=== PATIENT | male | born 1950 | race Caucasian/White ===

== ENCOUNTER 2020-07-04 21:52 | Inpatient (IN) | payer MEDICARE, SELFPAY ==
[2020-07-04 21:55] VITALS: BP 234/112; PULSE 107; RESP 17; TEMP 37.2; O2SAT 100; BMI 38.7
--- NOTE | 2020-07-04 21:58 | XR_ITS ---
WS: [id number] PORTABLE CHEST HISTORY: dyspnea COMPARISON: None available. Prior median sternotomy. Lung volumes are decreased. Moderate pulmonary congestion. No pleural effusion or pneumothorax. Cardiac size: Mildly enlarged cardiac silhouette. Mediastinum/Aorta: Normal mediastinum. Degenerative changes at the AC joints. XR/XR chest 1V portable [id number] IMPRESSION: 1. Technically very limited evaluation of the lungs. 2. Moderate CHF.
[2020-07-04 22:14] VITALS: PULSE 86; RESP 24; O2SAT 95
[2020-07-04 22:14] LABS: Basophils # 0.1 10^3/uL (0.0-0.1); Basophils % 0.6 %; Eosinophils # 0.5 10^3/uL (0.0-0.8); Hematocrit 48.1 % (42.0-52.0); Hemoglobin 15.4 g/dL (11.7-16.6); Lymphocytes # 1.7 10^3/uL (0.8-4.8); Lymphocytes % 14.4 %; Mean Corpuscular Hemoglobin 29.4 pg (28.0-34.0); Mean Platelet Volume 10.6 fL (7.4-10.4); Monocytes # 0.9 10^3/uL (0.2-0.9); Monocytes % 7.9 %; Neutrophils # 8.48 10^3/uL (1.8-7.7); Neutrophils % 72.8 %; Nucleated Red Blood Cells % 0 %; Platelet Count 250 10^3/cmm (130-400); Red Blood Count 5.23 10^6/uL (4.1-5.3); Red Cell Distribution Width 13.5 % (12.1-15.1); White Blood Count 11.6 10^3/uL (4.0-10.0)
[2020-07-04 22:22] VITALS: BP 205/129; PULSE 91; RESP 20; O2SAT 90
[2020-07-04 22:37] LABS: Troponin(5th) Baseline 31 ng/L (0-15)
--- NOTE | 2020-07-04 22:37 | ED_ITS ---
HPI - SOB/Dyspnea General: Chief Complaint: Shortness of Breath/Dyspnea Stated Complaint: resp dis Time Seen by Provider: 07/04/20 21:58 History of Present Illness: HPI Narrative: This patient is a 70-year-old male who presents today with shortness of breath. He reports that he has been getting increasingly more short of breath over the past 3 days. He is had some cough. He does not think he has had a fever. He denies chest pain. He denies any history of CHF or COPD. He did have a potential exposure to COVID. He and some family members went on vacation together and 1 of them had been exposed to COVID but did not test positive. No one seem to have symptoms. The patient has had an aortic valve replacement in the past. He has diabetes and obesity. MD elicited complaint: shortness of breath Pertinent past history: diabetes Onset (ago): day(s) (3) Timing: constant Severity: severe Exacerbating factors: lying flat Relieving factors: upright position Known history of: diabetes Associated symptoms: Deny abdominal pain, chest congestion, chest pain, extremity pain, fever(s), nausea or vomiting Review of Systems General: Reports: 10 or more systems reviewed and unremarkable except in HPI and below Const: Denies: fever(s) Eyes: Denies: change in vision ENMT: Denies: odynophagia Card: Denies: chest pain Resp: Reports: dyspnea and non-productive cough; Denies: chest congestion GI: Denies: abdominal pain, nausea or vomiting : Denies: flank pain Musc: Denies: extremity pain Skin/Breast: Denies: rash Neuro: Denies: headache(s), numbness in extremities or weakness in extremities Lit/Lymph: Denies: easy bruising or easy bleeding PFS ED PFSH: Medical History Anticoagulation adequate with anticoagulant therapy Xarelto Diabetes Dyslipidemia HTN (hypertension) Obesity TIA (transient ischemic attack) Varicose vein of leg Surgical History S/P AVR (aortic valve replacement) Family History Father Diabetes Hypertension Grandfather Diabetes PATERNAL Hypertension PATERNAL Social History Smoking and tobacco status: former smoker Marital status: / service: No Current occupational status: retired Physical Exam Const: COMMON NORMALS: patient oriented x3 and alert GENERAL APPEARANCE: cooperative and in distress HENMT: HEAD & SCALP: normal to inspection FACE & SINUS: normal facial exam Eye: GENERAL EYE: appearance normal, both eyes and all related structures Neck/C-Spine: COMMON NORMALS: supple, no meningeal signs and no JVD Chest: COMMONS NORMALS: normal inspection of the chest Resp: EFFORT & INSPECTION: Yes tachypneic, Yes respiratory distress, Yes labored, Yes uses accessory muscles, Yes audible wheezes and Yes tripod positioning AUSCULTATION: rales, wheezes and diminished lung sounds Cardio: COMMON NORMALS: no JVD, regular rate, regular rhythm and No murmurs present (Cardio) RATE: regular rate RHYTHM: regular rhythm GI: COMMON NORMALS: Normal to inspection, nondistended, normoactive bowel sounds present, Soft to palpation and non-tender INSPECTION: Yes normal to inspection AUSCULTATION: Yes normoactive bowel sounds PALPATION: Yes Soft to palpation Back/Pelvis: COMMON NORMALS: thoracic and lumbar spine normal to inspection Extremity: COMMON NORMALS: normal to inspection NARRATIVE EXTREMITY EXAM: Wearing compression socks which he says are for varicose veins Neuro: COMMON NORMALS: patient oriented x3, moves all extremities, no focal motor deficits and no sensory deficits noted SENSORIUM/ORIENTATION: Yes alert MENINGEAL SIGNS: Yes no meningeal signs Psych: COMMON NORMALS: mental status grossly normal, cooperative and normal affect Skin: COMMON NORMALS: no rashes or lesions noted and turgor normal GENERAL SKIN EXAM: no rashes or lesions noted and turgor normal Course ED course: This patient was in significant respiratory distress on arrival and insisted on sitting up on the side of the bed. With that he did that with movement calm down a little bit his breathing did improve. He was put on BiPAP and did well with it. He said it really helped his breathing and he like to have a machine like that at home. His cover test was negative. His clinical presentation does not suggest COVID. It does suggest CHF and he was treated for this while in the ED. He was markedly hypertensive on arrival and Nitropaste was placed. Although he definitely improved in the ED he will need admission for further diuresis and respiratory support. Vital Signs: Vital signs: Vital Signs Temperature 98.7 F 07/05/20 03:38 Pulse Rate 86 07/05/20 03:38 Respiratory Rate 20 H 07/05/20 03:38 Blood Pressure 187/85 07/05/20 03:38 Pulse Oximetry 93 07/05/20 03:38 MDM - SOB/Dyspnea Lab Data: Labs: Lab Results 07/04/20 07/04/20 07/04/20 Range/Units 21:39 21:39 21:39 WBC 11.6 H (4.0-10.0) 10^3/ uL RBC 5.23 (4.1-5.3) 10^6/u L Hgb 15.4 (11.7-16.6) g/dL Hct 48.1 (42.0-52.0) % MCV 92.0 (80-94) fL MCH 29.4 (28.0-34.0) pg MCHC 32.0 (30.0-36.0) g/dL RDW 13.5 (12.1-15.1) % Plt Count 250 (130-400) 10^3/c mm MPV 10.6 H (7.4-10.4) fL Neut % (Auto) 72.8 % Lymph % (Auto) 14.4 % [place] % (Auto) 7.9 % Eos % (Auto) 4.0 % Baso % (Auto) 0.6 % Neut # (Auto) 8.48 H (1.8-7.7) 10^3/u L Lymph # (Auto) 1.7 (0.8-4.8) 10^3/u L [place] # (Auto) 0.9 (0.2-0.9) 10^3/u L Eos # (Auto) 0.5 (0.0-0.8) 10^3/u L Baso # (Auto) 0.1 (0.0-0.1) 10^3/u L Nucleated RBC % (a uto) 0 % Nucleated RBCs # 0.0 /100WBC PT 13.90 (12.1-14.9) SECO NDS INR 1.04 (0.8-1.2) Fibrinogen 527 H (174-498) mg/dL D-Dimer 0.85 H (0-0.59) ug/mIFE U Sodium 141 (136-145) mmol/L Potassium 4.5 (3.5-5.1) mmol/L Chloride 108 H (98-107) mmol/L Carbon Dioxide 23 (22-29) mmol/L Anion Gap 14.5 (5-19) BUN 14 (8-23) mg/dL Creatinine 1.1 (0.7-1.2) mg/dL GFR Calculation Not Reportable Glucose 144 H (65-115) mg/dL POC Glucose (70-110) mg/dL Calculated Osmolal ity 295 (285-295) mOsm/k g Lactic Acid (0.5-2.2) mmol/L Calcium 8.8 (8.5-10.5) mg/dL Magnesium 2.2 (1.7-2.3) mg/dL Ferritin 114 (30-400) ng/mL Total Bilirubin 1.3 H (0.15-1.2) mg/dL AST 47 H (0-40) U/L ALT 54 H (0-41) U/L Alkaline Phosphata se 87 (40-130) IU/L Troponin T Gen 5 n g/L Troponin T Baselin e (0-15) ng/L Troponin T 120 Min [place] (0-15) ng/L Delta Troponin T (0-10) ABS# C-Reactive Protein 3.3 (0.0-4.9) mg/L NT-Pro-B Natriuret Pep 1211 H (0-125) pg/mL Total Protein 6.7 (6.6-8.7) g/dL Albumin 4.4 (3.5-5.2) g/dL Globulin 2.3 (1.3-4.6) g/dL Procalcitonin 0.07 (0-0.5) ng/mL Urine Color (Yellow) Urine Appearance (CLEAR) Urine pH (5-7) Ur Specific Gravit y (1.005-1.030) Urine Protein (Negative) Urine Glucose (UA) (Normal) Urine Ketones (Negative) Urine Blood (Negative) Urine Nitrate (Negative) Urine Bilirubin (Negative) Urine Urobilinogen (Negative) mg/dL Ur Leukocyte Shannan ase (Negative) Urine RBC (0-2) /hpf Urine WBC (0-5) /hpf Ur Squamous Epith Cells (0-5) /hpf Amorphous Sediment Urine Bacteria (NONE) /hpf Influenza Type A A g (Negative) Influenza Type B A g (Negative) SARS-CoV-2 Ag (Rap id) (Negative) 07/04/20 07/04/20 07/04/20 Range/Units 21:39 22:10 22:10 WBC (4.0-10.0) 10^3/ uL RBC (4.1-5.3) 10^6/u L Hgb (11.7-16.6) g/dL Hct (42.0-52.0) % MCV (80-94) fL MCH (28.0-34.0) pg MCHC (30.0-36.0) g/dL RDW (12.1-15.1) % Plt Count (130-400) 10^3/c mm MPV (7.4-10.4) fL Neut % (Auto) % Lymph % (Auto) % [place] % (Auto) % Eos % (Auto) % Baso % (Auto) % Neut # (Auto) (1.8-7.7) 10^3/u L Lymph # (Auto) (0.8-4.8) 10^3/u L [place] # (Auto) (0.2-0.9) 10^3/u L Eos # (Auto) (0.0-0.8) 10^3/u L Baso # (Auto) (0.0-0.1) 10^3/u L Nucleated RBC % (a uto) % Nucleated RBCs # /100WBC PT (12.1-14.9) SECO NDS INR (0.8-1.2) Fibrinogen (174-498) mg/dL D-Dimer (0-0.59) ug/mIFE U Sodium (136-145) mmol/L Potassium (3.5-5.1) mmol/L Chloride (98-107) mmol/L Carbon Dioxide (22-29) mmol/L Anion Gap (5-19) BUN (8-23) mg/dL Creatinine (0.7-1.2) mg/dL GFR Calculation Glucose (65-115) mg/dL POC Glucose (70-110) mg/dL Calculated Osmolal ity (285-295) mOsm/k g Lactic Acid (0.5-2.2) mmol/L Calcium (8.5-10.5) mg/dL Magnesium (1.7-2.3) mg/dL Ferritin (30-400) ng/mL Total Bilirubin (0.15-1.2) mg/dL AST (0-40) U/L ALT (0-41) U/L Alkaline Phosphata se (40-130) IU/L Troponin T Gen 5 n g/L Cancelled Troponin T Baselin e 31 H (0-15) ng/L Troponin T 120 Min [place] (0-15) ng/L Delta Troponin T (0-10) ABS# C-Reactive Protein (0.0-4.9) mg/L NT-Pro-B Natriuret Pep (0-125) pg/mL Total Protein (6.6-8.7) g/dL Albumin (3.5-5.2) g/dL Globulin (1.3-4.6) g/dL Procalcitonin (0-0.5) ng/mL Urine Color (Yellow) Urine Appearance (CLEAR) Urine pH (5-7) Ur Specific Gravit y (1.005-1.030) Urine Protein (Negative) Urine Glucose (UA) (Normal) Urine Ketones (Negative) Urine Blood (Negative) Urine Nitrate (Negative) Urine Bilirubin (Negative) Urine Urobilinogen (Negative) mg/dL Ur Leukocyte Shannan ase (Negative) Urine RBC (0-2) /hpf Urine WBC (0-5) /hpf Ur Squamous Epith Cells (0-5) /hpf Amorphous Sediment Urine Bacteria (NONE) /hpf Influenza Type A A g (Negative) Influenza Type B A g (Negative) SARS-CoV-2 Ag (Rap id) Negative (Negative) 07/04/20 07/04/20 07/05/20 Range/Units 22:10 22:14 00:50 WBC (4.0-10.0) 10^3/ uL RBC (4.1-5.3) 10^6/u L Hgb (11.7-16.6) g/dL Hct (42.0-52.0) % MCV (80-94) fL MCH (28.0-34.0) pg MCHC (30.0-36.0) g/dL RDW (12.1-15.1) % Plt Count (130-400) 10^3/c mm MPV (7.4-10.4) fL Neut % (Auto) % Lymph % (Auto) % [place] % (Auto) % Eos % (Auto) % Baso % (Auto) % Neut # (Auto) (1.8-7.7) 10^3/u L Lymph # (Auto) (0.8-4.8) 10^3/u L [place] # (Auto) (0.2-0.9) 10^3/u L Eos # (Auto) (0.0-0.8) 10^3/u L Baso # (Auto) (0.0-0.1) 10^3/u L Nucleated RBC % (a uto) % Nucleated RBCs # /100WBC PT (12.1-14.9) SECO NDS INR (0.8-1.2) Fibrinogen (174-498) mg/dL D-Dimer (0-0.59) ug/mIFE U Sodium (136-145) mmol/L Potassium (3.5-5.1) mmol/L Chloride (98-107) mmol/L Carbon Dioxide (22-29) mmol/L Anion Gap (5-19) BUN (8-23) mg/dL Creatinine (0.7-1.2) mg/dL GFR Calculation Glucose (65-115) mg/dL POC Glucose (70-110) mg/dL Calculated Osmolal ity (285-295) mOsm/k g Lactic Acid 1.4 (0.5-2.2) mmol/L Calcium (8.5-10.5) mg/dL Magnesium (1.7-2.3) mg/dL Ferritin (30-400) ng/mL Total Bilirubin (0.15-1.2) mg/dL AST (0-40) U/L ALT (0-41) U/L Alkaline Phosphata se (40-130) IU/L Troponin T Gen 5 n g/L Troponin T Baselin e (0-15) ng/L Troponin T 120 Min [place] 50.40 H (0-15) ng/L Delta Troponin T 19.40 H* (0-10) ABS# C-Reactive Protein (0.0-4.9) mg/L NT-Pro-B Natriuret Pep (0-125) pg/mL Total Protein (6.6-8.7) g/dL Albumin (3.5-5.2) g/dL Globulin (1.3-4.6) g/dL Procalcitonin (0-0.5) ng/mL Urine Color (Yellow) Urine Appearance (CLEAR) Urine pH (5-7) Ur Specific Gravit y (1.005-1.030) Urine Protein (Negative) Urine Glucose (UA) (Normal) Urine Ketones (Negative) Urine Blood (Negative) Urine Nitrate (Negative) Urine Bilirubin (Negative) Urine Urobilinogen (Negative) mg/dL Ur Leukocyte Shannan ase (Negative) Urine RBC (0-2) /hpf Urine WBC (0-5) /hpf Ur Squamous Epith Cells (0-5) /hpf Amorphous Sediment Urine Bacteria (NONE) /hpf Influenza Type A A g Negative (Negative) Influenza Type B A g Negative (Negative) SARS-CoV-2 Ag (Rap id) (Negative) 07/05/20 07/05/20 Range/Units 02:33 02:34 WBC (4.0-10.0) 10^3/ uL RBC (4.1-5.3) 10^6/u L Hgb (11.7-16.6) g/dL Hct (42.0-52.0) % MCV (80-94) fL MCH (28.0-34.0) pg MCHC (30.0-36.0) g/dL RDW (12.1-15.1) % Plt Count (130-400) 10^3/c mm MPV (7.4-10.4) fL Neut % (Auto) % Lymph % (Auto) % [place] % (Auto) % Eos % (Auto) % Baso % (Auto) % Neut # (Auto) (1.8-7.7) 10^3/u L Lymph # (Auto) (0.8-4.8) 10^3/u L [place] # (Auto) (0.2-0.9) 10^3/u L Eos # (Auto) (0.0-0.8) 10^3/u L Baso # (Auto) (0.0-0.1) 10^3/u L Nucleated RBC % (a uto) % Nucleated RBCs # /100WBC PT (12.1-14.9) SECO NDS INR (0.8-1.2) Fibrinogen (174-498) mg/dL D-Dimer (0-0.59) ug/mIFE U Sodium (136-145) mmol/L Potassium (3.5-5.1) mmol/L Chloride (98-107) mmol/L Carbon Dioxide (22-29) mmol/L Anion Gap (5-19) BUN (8-23) mg/dL Creatinine (0.7-1.2) mg/dL GFR Calculation Glucose (65-115) mg/dL POC Glucose 91 (70-110) mg/dL Calculated Osmolal ity (285-295) mOsm/k g Lactic Acid (0.5-2.2) mmol/L Calcium (8.5-10.5) mg/dL Magnesium (1.7-2.3) mg/dL Ferritin (30-400) ng/mL Total Bilirubin (0.15-1.2) mg/dL AST (0-40) U/L ALT (0-41) U/L Alkaline Phosphata se (40-130) IU/L Troponin T Gen 5 n g/L Troponin T Baselin e (0-15) ng/L Troponin T 120 Min [place] (0-15) ng/L Delta Troponin T (0-10) ABS# C-Reactive Protein (0.0-4.9) mg/L NT-Pro-B Natriuret Pep (0-125) pg/mL Total Protein (6.6-8.7) g/dL Albumin (3.5-5.2) g/dL Globulin (1.3-4.6) g/dL Procalcitonin (0-0.5) ng/mL Urine Color Yellow (Yellow) Urine Appearance Clear (CLEAR) Urine pH 5 (5-7) Ur Specific Gravit y 1.015 (1.005-1.030) Urine Protein Trace (Negative) Urine Glucose (UA) 4+ H (Normal) Urine Ketones Negative (Negative) Urine Blood Neg (Negative) Urine Nitrate Negative (Negative) Urine Bilirubin Neg (Negative) Urine Urobilinogen Norm (Negative) mg/dL Ur Leukocyte Shannan ase Negative (Negative) Urine RBC None (0-2) /hpf Urine WBC None (0-5) /hpf Ur Squamous Epith Cells None (0-5) /hpf Amorphous Sediment Not Reportable Urine Bacteria None (NONE) /hpf Influenza Type A A g (Negative) Influenza Type B A g (Negative) SARS-CoV-2 Ag (Rap id) (Negative) Discharge Plan Discharge Patient Disposition: Placed in Observation Admit Provider: Keely Brothers Clinical Impression: Acute respiratory distress Congestive heart failure Qualifiers: Heart failure type: unspecified Heart failure chronicity: acute Qualified Code(s): I50.9 - Heart failure, unspecified Condition: Stable Referrals: Chon Bradshaw DO [Primary Care Provider] - Discharge Date/Time: 07/05/20 03:26 Coding Level of Care Code 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
[2020-07-04 22:38] LABS: NT Pro B Type Natriuretic Pept 1211 pg/mL (0-125); Procalcitonin 0.07 ng/mL (0-0.5)
[2020-07-04 22:49] LABS: Lactic Sepsis W/Reflex 1.4 mmol/L (0.5-2.2)
[2020-07-04 22:50] VITALS: BP 186/88; O2SAT 91
[2020-07-04 22:50] LABS: Alanine Aminotransferase 54 U/L (0-41); Albumin Level 4.4 g/dL (3.5-5.2); Alkaline Phosphatase 87 IU/L (40-130); Aspartate Amino Transferase 47 U/L (0-40); Blood Urea Nitrogen 14 mg/dL (8-23); C Reactive Protein 3.3 mg/L (0.0-4.9); Calcium 8.8 mg/dL (8.5-10.5); Carbon Dioxide 23 mmol/L (22-29); Chloride 108 mmol/L (98-107); Ferritin 114 ng/mL (30-400); Globulin 2.3 g/dL (1.3-4.6); Glucose 144 mg/dL (65-115); Magnesium 2.2 mg/dL (1.7-2.3); Osmolality Calculated 295 mOsm/kg (285-295); Sodium 141 mmol/L (136-145); Total Bilirubin 1.3 mg/dL (0.15-1.2); Total Protein 6.7 g/dL (6.6-8.7)
[2020-07-04 22:54] LABS: Anion Gap 14.5 (5-19); Potassium 4.5 mmol/L (3.5-5.1)
[2020-07-04] MEDS: nitroglycerin 1 gm/inch oint Pkt 0.5 INCH TOPICAL (22:58)
[2020-07-04 23:03] LABS: Influenza A by IFA Negative (Negative); Influenza B by IFA Negative (Negative); SARS Covid-2 Antigen Negative (Negative)
[2020-07-04 23:17] LABS: INR 1.04 (0.8-1.2)
[2020-07-04 23:18] LABS: Fibrinogen 527 mg/dL (174-498)
[2020-07-04 23:21] LABS: D Dimer 0.85 ug/mIFEU (0-0.59)
[2020-07-05] VITALS (16 sets, daily range): BP systolic 109–187; BP diastolic 53–85; PULSE 72–91; RESP 13–21; TEMP 36.6–37.1; O2SAT 90–97
--- NOTE | 2020-07-05 00:14 | ECG_ITS ---
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 Measurements Intervals Bath Rate: 73 P: 33 MT: 245 QRS: 25 QRSD: 104 T: 141 QT: 425 QTc: 471 Interpretive Statements SINUS RHYTHM WITH FIRST DEGREE AV BLOCK ST DEVIATION AND MODERATE T-WAVE ABNORMALITY, CONSIDER LATERAL ISCHEMIA [-0.1+ mV T WAVE IN I/aVL/V5/V6] Compared to ECG 11/22/2017 19:43:42 No significant changes Electronically Signed On 07-05-2020 10:49:23 CDT by Jaime Moore M.D. [id number]
[2020-07-05] MEDS: FUROsemide 10 mg/mL SDV 4mL 40 MG IVP ×2 (01:51→08:17)
[2020-07-05 02:36] LABS: Glucose Point of Care 91 mg/dL (70-110)
[2020-07-05 04:12] LABS: Add Urine Microscopic? YES; Bilirubin Urine Neg (Negative); Blood Urine Neg (Negative); Glucose Urine UA 4+ (Normal); Ketones Urine Negative (Negative); Leukocyte Esterase Urine Negative (Negative); Nitrate Urine Negative (Negative); Protein Urine Trace (Negative); Specific Gravity, Urine 1.015 (1.005-1.030); Urine Appearance Clear (CLEAR); Urine Color Yellow (Yellow); Urobilinogen Urine Norm (Negative); pH Urine 5 (5-7)
--- NOTE | 2020-07-05 04:47 | PC.NURSE ---
Patient admitted from ER via stretcher. Patient is alert and oriented. Patient placed on telemetry and vitals obtained. Patient denies needs at this time. Bed in low position and call light within reach.
--- NOTE | 2020-07-05 04:53 | PC.NURSE ---
Dr. Brothers notified of patients admitting blood pressure 187/85. No orders received at this time. Will await further orders.
[2020-07-05 05:36] LABS: Troponin 5 6HR 43.99 ng/L (0-15)
[2020-07-05 05:42] LABS: Troponin 5 6HR Delta 12.99 ng/L (0-12)
[2020-07-05 06:45] LABS: Glucose Point of Care 131 mg/dL (70-110)
--- NOTE | 2020-07-05 07:21 | P.HP_ITS ---
Providers/Chief Complaint Admitting Physician: Keely Brothers MD Primary Care Provider: Chon Bradshaw DO Chief Complaint: resp dis History of Present Illness Surendra Roland is a 70 year old male who presented to the emergency room with chief complaint of difficulty breathing. He describes slightly progressive dyspnea over the last few days may be up to 4 or 5 days. He keeps a daily journal of any symptoms he may have and was able to show me that on July 02 he noted that anytime he laid down on his right side he had audible wheezing and if he laid down on his left side he was too short of breath. He was unable to lie on his back and attempted to sleep in the recliner. This did not really seem to help much. He has had increasing extremity edema as well as increasing abdominal girth. He attributed that to increased bloating and gas but had no real relief from Gas-X with it. He denies any episodes of chest pain. He does not have a personal history of CHF. He denies having had problems with shortness of breath previously when he seen Dr. 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 Bradshaw. He has had aortic valve replacement, bioprosthetic, known atrial fibrillation for which he is on chronic Xarelto among other diagnoses as noted below. When he had his aortic valve replacement done he states that he did have an arteriogram and had no significant blockages. This evening, patient had somewhat acute onset of worsening trouble breathing. He was in enough distress upon arrival that he was put on some BiPAP, given some Lasix and some nitroglycerin paste. He had elevated troponin as well as elevation in BNP. Further blood pressures were quite elevated upon arrival at a high of 230s over 110s. He reports having difficulty managing his blood pressure in the past but does not recall it ever being that high before. He is being admitted for further evaluation and treatment. Review of Systems Const: Denies: fever(s), chills or change in appetite Eyes: Denies: change in vision ENMT: Denies: throat pain, dry mouth or nasal congestion Card: Reports: edema and orthopnea; Denies: chest pain or palpitations Resp: Reports: dyspnea, non-productive cough and wheezing; Denies: productive cough, pain on inspiration, hemoptysis or chest congestion GI: Denies: abdominal pain, nausea, vomiting, diarrhea or constipation : Reports: nocturia; Denies: urinary frequency Musc: Reports: joint redness and other (Generalized aches and pains but no acute musculoskeletal complaints) Skin/Breast: Reports: other (Varicose veins in the legs); Denies: rash or pruritus Neuro: Reports: dizziness (With shortness of breath this evening); Denies: headache(s), numbness in extremities or weakness in extremities Psych: Denies: anxiety or depression Lit/Lymph: Denies: easy bruising or easy bleeding Medications/Allergies Home Medications Medication Instructions Recorded Confirmed Last Taken Type aspirin 81 mg tablet,delayed 81 mg PO DAILY 02/22/20 07/05/20 07/04/20 09:00 History release duloxetine 60 mg capsule,delayed 60 mg PO DAILY 02/22/20 07/05/20 07/03/20 21:00 History release empagliflozin 10 mg tablet 25 mg PO DAILY 02/22/20 07/05/20 07/04/20 09:00 History insulin degludec 100 unit/mL 75 unit SUBCUT BEDTIME ml 02/22/20 07/05/20 07/04/20 09:00 History subcutaneous solution tamsulosin 0.4 mg capsule 0.4 mg PO BEDTIME 02/22/20 07/05/20 07/04/20 21:00 History carvedilol 25 mg tablet 25 mg PO BID 90 Days #180 tab 02/23/20 07/05/20 07/04/20 09:00 Rx cholestyramine (with sugar) 4 gram 4 gm PO BID 90 Days #378 gm 02/23/20 07/05/20 07/04/20 09:00 Rx oral powder insulin aspart U-100 100 unit/mL 15 unit SUBCUT TID ml 02/23/20 07/05/20 07/04/20 13:00 History subcutaneous solution losartan 100 mg tablet 100 mg PO DAILY 90 Days #90 tab 02/23/20 07/05/20 07/04/20 09:00 Rx spironolactone 25 mg tablet 25 mg PO DAILY 90 Days #90 tab 02/23/20 07/05/20 07/04/20 09:00 Rx Lucero-C 1,000 mg PO DAILY 07/05/20 07/05/20 07/04/20 09:00 History rivaroxaban [Xarelto] 20 mg PO DAILY 07/05/20 07/05/20 07/03/20 21:00 History Allergies Allergy/AdvReac Type Severity Reaction Status Date / Time No Known Allergies Allergy Verified 02/23/20 15:42 PFSH Acute PFSH: Medical History Anticoagulation adequate with anticoagulant therapy Xarelto Diabetes Dyslipidemia HTN (hypertension) Obesity TIA (transient ischemic attack) Varicose vein of leg Surgical History S/P AVR (aortic valve replacement) S/P cataract extraction S/P cholecystectomy Family History Father Diabetes Hypertension Grandfather Diabetes PATERNAL Hypertension PATERNAL Social History Smoking and tobacco status: former smoker Marital status: / service: No Current occupational status: retired Vitals/I&O/Wt Last Vital Signs Temp 98.7 F 07/05/20 03:38 Pulse 89 07/05/20 05:01 Resp 20 H 07/05/20 03:38 BP 187/85 07/05/20 03:38 Pulse Ox 93 07/05/20 05:01 07/04/20 07/05/20 07/05/20 22:59 06:59 14:59 Output Total 450 / 450 Balance -450 / -450 Weight last 48 hrs Weight 122.47 kg Physical Exam Const: OTHER: Alert, oriented x3, cooperative HENMT: OTHER: Normocephalic atraumatic, moist mucus membranes, no abnormalities noted posterior oropharynx Eye: OTHER: Pupils equally round and reactive to light, anicteric sclera, conjunctive a noninjected Neck/C-Spine: OTHER: Supple, JVD approximately 9 cm Resp: OTHER: Bibasilar Rales, at the time of my evaluation no accessory muscle use, able to talk and 5-7 word sentences Cardio: OTHER: Regular rhythm, no murmurs or rubs, capillary refill is equal at both feet GI: OTHER: Abdomen soft, nontender, rotund with positive bowel sounds. Sites of insulin injection are visible and palpable but without significant bruising noted.. : OTHER: Deferred Extremity: NARRATIVE EXTREMITY EXAM: 3-4+ pitting edema bilateral lower extremities with compression stockings in place that are his own Neuro: OTHER: Face symmetric, speech clear, moves all extremities Psych: OTHER: Normal affect Skin: OTHER: Has some chronic lower extremity stasis changes that are mild and varicosities noted. Skin is pale and dry. Data : 07/04/20 21:39 07/04/20 21:39 Other Labs: Laboratory Tests 07/04/20 07/04/20 07/04/20 21:39 22:10 22:14 Lactic Acid 1.4 Magnesium 2.2 Total Bilirubin 1.3 H AST 47 H ALT 54 H Alkaline Phosphatase 87 Troponin T Baseline 31 H Troponin T 120 Minute Delta Troponin T C-Reactive Protein 3.3 NT-Pro-B Natriuret Pep 1211 H Procalcitonin 0.07 07/05/20 00:50 Lactic Acid Magnesium Total Bilirubin AST ALT Alkaline Phosphatase Troponin T Baseline Troponin T 120 Minute 50.40 H Delta Troponin T 19.40 H* C-Reactive Protein NT-Pro-B Natriuret Pep Procalcitonin CXR: I personally reviewed and interpreted this imaging study as follows: My impression: Pulmonary edema and cardiomegaly EKG 1: I personally reviewed and interpreted this EKG as follows: My Interpretation: Sinus rhythm in the 60s, nonspecific ST segment changes that are very similar to those from EKG in November 2017 A&P Assessment and plan (1) Acute respiratory distress: Suspect due to acute CHF that have been gradually worsening over the last few days and finally reached this threshold. Cannot rule out that it is secondary to hypertensive emergency but it does not look like his pressures have been quite high like this before. He denies ever experiencing anything like today. GERD. He is chronically on Xarelto so PE is less likely though not out of the differential. An acute cardiac ischemic event could present this way and he does have elevation in troponin but I am leaning towards that being a type II process. He improved with BiPAP, Lasix and Nitropaste administered in the emergency room. Status: Acute (2) Congestive heart failure: Suspected new diagnosis based on clinical presentation, type currently unknown. Status: Acute Qualifiers: Heart failure chronicity: acute Heart failure type: unspecified Qualified Code(s): I50.9 - Heart failure, unspecified (3) Hypertensive urgency: Present on admission, I think this is secondary to gradually developing volume overload/CHF currently though it could be the cause. He denies missing medications. Status: Acute (4) NSTEMI (non-ST elevated myocardial infarction): Currently appears to be a type II process although patient has not had recent evaluation of his coronary arteries. They were evaluated prior to his aortic valve replacement and he had minimal findings though does describe the c ardiologist he had in [place] pointing out places where there was some insignificant areas of blockage not necessitating any form of intervention at that time. Status: Acute (5) S/P AVR (aortic valve replacement): Status: Chronic (6) Benign prostatic hyperplasia: Status: Chronic Qualifiers: Lower urinary tract symptom presence: unspecified whether lower urinary tract symptoms present Qualified Code(s): N40.0 - Benign prostatic hyperplasia without lower urinary tract symptoms (7) Chronic anticoagulation: Xarelto continued history of paroxysmal atrial fibrillation Status: Chronic Additional A&P Information Mild elevation in liver enzymes, suspect due to congestion currently Hypertension Dyslipidemia Obesity with a BMI of 38.7 Atrial fibrillation, sounds paroxysmal by description Inpatient admission Telemetry monitoring Complete serial cardiac enzymes and EKGs Check echocardiogram in the morning Pending results of above can consider consultation with cardiology as indicated We will continue IV diuresis, Nitropaste Thus far as tolerated cessation of BiPAP though if he has recurrent distress will resume Continue home Coreg, aspirin, Aldactone, losartan Continue Xarelto Check lipid panel Continue home Cymbalta Continue home Flomax We will substitute Lantus for Tresiba while here in the hospital and add some sliding scale insulin, empagliflozin has been held presently Xarelto will provide appropriate DVT prophylaxis Supportive care otherwise Plans were discussed with patient and he was given an opportunity to ask questions of which she had several Anticipate discharge home potentially with some home care services. Patient does live alone with his 2 weiner dogs and is quite anxious due to the degree of symptoms he had at presentation Attestations Medical Necessity Statement*: Anticipated stay greater than 2 midnights in this gentleman who is presenting with respiratory distress associated with elevated blood pressure and pulmonary edema on chest x-ray. He does not have a known history of CHF and has never had symptoms quite like this that he can report. He required aggressive intervention initially in the emergency room. Will likely require adjustment to chronic medications. Current plans of care are as noted. High risk of significant clinical decline without further evaluation and acute management. 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
--- NOTE | 2020-07-05 07:26 | USCV_ITS ---
Surendra Roland Age: 70 Gender: M : 1950 Exam Date: 07/05/2020 09:26 Ordering Phys: Keely Brothers MD Technologist: Jessee Byrd Exam Location: [facility] [place] Indication: NSTEMI BP: 167 / 71 HR: 76 Rhythm: Sinus Technical Quality: Fair MEASUREMENTS (Male / Female) Normal Values 2D ECHO LV Diastolic Diameter PLAX 4.4 cm 4.2 - 5.9 / 3.9 - 5.3 cm LV Systolic Diameter PLAX 3.5 cm IVS Diastolic Thickness 1.4 cm 0.6 - 1.0 / 0.6 - 0.9 cm IVS Systolic Thickness 1.6 cm LVPW Diastolic Thickness 1.3 cm 0.6 - 1.0 / 0.6 - 0.9 cm LVPW Systolic Thickness 1.9 cm LVOT Diameter 2.1 cm LV Ejection Fraction 2D Teich 33.0 % LV Ejection Fraction MOD 2C 59.0 % LV Ejection Fraction 2C AL 57.9 % LA Diameter 3.9 cm LA Width 4.9 cm LA Height 4.9 cm RA Width 3.6 cm RA Height 4.2 cm Aorta at Sinotubular Diameter 1.4 cm M-MODE LV Diastolic Diameter MM 5.6 cm 4.2 - 5.9 / 3.9 - 5.3 cm LV Systolic Diameter MM 3.6 cm LV Ejection Fraction MM Teich 63.0 % IVS Diastolic Thickness MM 1.1 cm 0.6 - 1.0 / 0.6 - 0.9 cm IVS Systolic Thickness MM 2.2 cm LVPW Diastolic Thickness MM 1.7 cm 0.6 - 1.0 / 0.6 - 0.9 cm LVPW Systolic Thickness MM 2.2 cm RV Diastolic Diameter MM 2.5 cm Aortic Annulus Diameter 4.2 cm LA Ao Ratio MM 1.1 MV E Point Septal Separation 1.5 cm DOPPLER AV Peak Velocity 264.0 cm/s LVOT Peak Velocity 118.0 cm/s AV Area Cont Eq vti 1.7 cm squared AV Area Cont Eq pk 1.5 cm squared MV Area PHT 5.0 cm squared Mitral E to A Ratio 1.1 MV E' Velocity 109.0 cm/s TR Peak Velocity 262.0 cm/s TR Peak Gradient 27.5 mmHg TV Peak E Velocity 104.0 cm/s Right Atrial Pressure 3.0 mmHg Pulmonary Artery Systolic Pressu 30.5 mmHg PV Peak Velocity 114.0 cm/s FINDINGS Left Ventricle Normal left ventricular cavity size. Normal left ventricular systolic function. No regional wall motion abnormalities. Left ventricular ejection fraction is estimated at 55 %. Grade II/IV diastolic dysfunction, moderately elevated filling pressures. Right Ventricle The right ventricle is normal in size and function. Right Atrium The right atrium is normal in size. Left Atrium The left atrium is normal in size. Mitral Valve Severely thickened mitral valve. Severe mitral annular calcification. No mitral valve stenosis. Aortic Valve Bioprosthetic aortic valve is sitting in a normal position functioning adequately. There appeared to be 1.7 cm2 aortic valve area with mean gradient across the aortic valve is 10mmHg Tricuspid Valve Structurally normal tricuspid valve without significant stenosis or regurgitation. Pulmonary artery systolic pressure is normal. Pulmonic Valve Structurally normal pulmonic valve without significant stenosis. There is no pulmonic regurgitation. Pericardium Normal pericardium without effusion. Aorta Normal ascending aorta dimension. CONCLUSIONS 1-Normal left ventricular cavity size. Normal left ventricular systolic function. No regional wall motion abnormalities. Left ventricular ejection fraction is estimated at 55 %. Grade II/IV diastolic dysfunction, moderately elevated filling pressures. 2-Bioprosthetic aortic valve is sitting in a normal position functioning adequately. There appeared to be 1.7 cm2 aortic valve area with mean gradient across the aortic valve is 10mmHg 3-Severely thickened mitral valve. Severe mitral annular calcification. No mitral valve stenosis. 4-There is no pericardial effusion. 5-Pulmonary artery systolic pressure is within normal limits. 6-Right atrial pressure is around 5 mm of mercury. 7-There are no prior echocardiogram studies to compare. 8-No significant change since the prior echocardiogram study of 08/20/2018. Alfred Damon MD (Electronically Signed) Final Date: 05 July 2020 21:01 S
[2020-07-05] MEDS: losartan 50 mg Tablet 100 MG PO (08:15)
[2020-07-05] MEDS: duloxetine 60 mg Capsule PO (08:15)
[2020-07-05] MEDS: aspirin 81 mg EC Tablet PO (08:15)
[2020-07-05] MEDS: carvedilol 25 mg Tablet PO ×2 (08:16→18:38)
[2020-07-05] MEDS: spironolactone 25 mg Tablet PO (08:16)
[2020-07-05] MEDS: rivaroxaban 10 mg Tablet 20 MG PO (08:16)
[2020-07-05] MEDS: nitroglycerin 1 gm/inch oint Pkt 1 INCH TOPICAL ×3 (08:20→18:39)
[2020-07-05 11:43] LABS: Glucose Point of Care 177 mg/dL (70-110)
--- NOTE | 2020-07-05 16:02 | PM.PN ---
Subjective Subjective: Interval history: Overnight labs and H&P reviewed. Patient continues to diurese. Total output is 1.7 L. States that breathing is starting to improve. Remains on supplemental O2 at 3 L/min. Saturating between 90 to 91%. Echocardiogram taken, remains pending at this time. Medications: Reviewed: Yes Vitals/I&O/Wt Last Vital Signs Temp 98.1 F 07/05/20 15:55 Pulse 85 07/05/20 15:55 Resp 13 07/05/20 15:55 BP 117/53 07/05/20 15:55 Pulse Ox 90 07/05/20 15:55 07/05/20 07/05/20 07/05/20 06:59 14:59 22:59 Intake Total 240 / 240 900 / 1140 Output Total 450 / 450 650 / 650 650 / 1300 Balance -450 / -450 -410 / -410 250 / -160 Weight last 48 hrs Weight 122.47 kg Physical Exam Narrative: EXAM NARRATIVE: GEN: Awake, alert and oriented, no acute distress CVS: S1S2 N RS: CTA B/L Abd: Soft, nt/nd , bs+ ACRYLIC FABRICATOR: no focal neuro deficits Data : 07/04/20 21:39 07/04/20 21:39 A&P Assessment and plan (1) Acute respiratory distress: Suspect due to acute CHF that have been gradually worsening over the last few days and finally reached this threshold. Awaiting echocardiogram to see if any changes over previous. Patient does not have a past history of CHF. This may have been precipitated by hypertensive urgency. He is chronically on Xarelto so PE is less likely An acute cardiac ischemic event could present this way and he does have elevation in troponin with significant delta initially of 19, then trending down to 12. Awaiting results of echocardiogram. No complaints of chest pain dyspnea or palpitations at this time. Status: Acute (2) Congestive heart failure: Suspected new diagnosis based on clinical presentation, type currently unknown. Awaiting echocardiogram Status: Acute Qualifiers: Heart failure chronicity: acute Heart failure type: unspecified Qualified Code(s): I50.9 - Heart failure, unspecified (3) Hypertensive urgency: Present on admission, blood pressure currently well controlled Status: Acute (4) NSTEMI (non-ST elevated myocardial infarction): Currently appears to be a type II process although patient has not had recent evaluation of his coronary arteries. They were evaluated prior to his aortic valve replacement and he had minimal findings though does describe the internal revenue service agent he had in [place] pointing out places where there was some insignificant areas of blockage not necessitating any form of intervention at that time. Status: Acute (5) S/P AVR (aortic valve replacement): Status: Chronic (6) Benign prostatic hyperplasia: Status: Chronic Qualifiers: Lower urinary tract symptom presence: unspecified whether lower urinary tract symptoms present Qualified Code(s): N40.0 - Benign prostatic hyperplasia without lower urinary tract symptoms (7) Chronic anticoagulation: Xarelto continued history of paroxysmal atrial fibrillation Status: Chronic Additional A&P Information Mild elevation in liver enzymes, suspect due to congestion currently Hypertension Dyslipidemia Obesity with a BMI of 38.7 Atrial fibrillation, sounds paroxysmal by description Awaiting results of echocardiogram, which will determine further investigations, if need to be pursued for significant CAD Attestations Medical Necessity Statement*: Ongoing need for IV diuresis, improving respiratory status, awaiting results of echocardiogram Coding Level of Care Code 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
[2020-07-05 17:09] LABS: Glucose Point of Care 191 mg/dL (70-110)
--- NOTE | 2020-07-05 19:13 | PC.NURSE ---
Shift summary Patient up ad shivam throughout shift. Patient denies any pain. Diabetic education provided, patient verbalized understanding and did not have any further questions. No further needs identified at this time. Nurse to continue to monitor.
[2020-07-05 20:54] LABS: Glucose Point of Care 222 mg/dL (70-110)
[2020-07-05] MEDS: insulin glargine 100 units/1 mL 70 UNIT SUBCUT (21:28)
[2020-07-05] MEDS: tamsulosin 0.4 mg Capsule PO (21:29)
[2020-07-06] VITALS (9 sets, daily range): BP systolic 135–171; BP diastolic 56–76; PULSE 69–98; RESP 10–24; TEMP 36.4–36.9; O2SAT 91–98
[2020-07-06] MEDS: nitroglycerin 1 gm/inch oint Pkt 1 INCH TOPICAL ×2 (01:51→08:21)
[2020-07-06 05:02] LABS: Basophils % 0.3 %; Eosinophils # 0.2 10^3/uL (0.0-0.8); Eosinophils % 1.5 %; Hematocrit 43.4 % (42.0-52.0); Hemoglobin 13.7 g/dL (11.7-16.6); Lymphocytes # 1.8 10^3/uL (0.8-4.8); Lymphocytes % 12.7 %; Mean Corpuscular HGB Conc 31.6 g/dL (30.0-36.0); Mean Corpuscular Hemoglobin 29.8 pg (28.0-34.0); Mean Corpuscular Volume 94.3 fL (80-94); Mean Platelet Volume 10.1 fL (7.4-10.4); Monocytes # 1.2 10^3/uL (0.2-0.9); Monocytes % 8.6 %; Neutrophils # 11.04 10^3/uL (1.8-7.7); Neutrophils % 76.6 %; Nucleated Red Blood Cells % 0 %; Platelet Count 216 10^3/cmm (130-400); Red Cell Distribution Width 13.8 % (12.1-15.1); White Blood Count 14.4 10^3/uL (4.0-10.0)
[2020-07-06 05:25] LABS: Alanine Aminotransferase 36 U/L (0-41); Albumin Level 3.8 g/dL (3.5-5.2); Alkaline Phosphatase 69 IU/L (40-130); Anion Gap 11.3 (5-19); Aspartate Amino Transferase 26 U/L (0-40); Blood Urea Nitrogen 25 mg/dL (8-23); Calcium 8.3 mg/dL (8.5-10.5); Carbon Dioxide 28 mmol/L (22-29); Chloride 105 mmol/L (98-107); Globulin 2.5 g/dL (1.3-4.6); Glucose 103 mg/dL (65-115); Magnesium 2.2 mg/dL (1.7-2.3); Osmolality Calculated 297 mOsm/kg (285-295); Potassium 3.3 mmol/L (3.5-5.1); Sodium 141 mmol/L (136-145); Total Bilirubin 1.4 mg/dL (0.15-1.2); Total Protein 6.3 g/dL (6.6-8.7)
[2020-07-06 05:29] LABS: Chol HDL Ratio 3.59 mg/dL (1.0-5.00); Cholesterol 147 mg/dL (0-200); HDL Cholesterol 41 mg/dL (60-100); LDL Cholesterol Calculated 88 mg/dL (50-129); LDL HDL Ratio 2.15 RATIO (0.00-3.22); Triglycerides 88 mg/dL (0-150)
[2020-07-06 06:28] LABS: Glucose Point of Care 95 mg/dL (70-110)
[2020-07-06] MEDS: carvedilol 25 mg Tablet PO ×2 (06:31→18:11)
[2020-07-06] MEDS: losartan 50 mg Tablet 100 MG PO (08:20)
[2020-07-06] MEDS: duloxetine 60 mg Capsule PO (08:21)
[2020-07-06] MEDS: spironolactone 25 mg Tablet PO (08:21)
[2020-07-06] MEDS: FUROsemide 10 mg/mL SDV 4mL 40 MG IVP (08:21)
[2020-07-06] MEDS: aspirin 81 mg EC Tablet PO (08:22)
[2020-07-06] MEDS: rivaroxaban 10 mg Tablet 20 MG PO (08:30)
--- NOTE | 2020-07-06 08:36 | PC.RESP ---
PATIENT DOES NOT HAVE A QUALIFYING HX OF LUNG DISEASE AND DOES NOT QUALIFY FOR PULMONARY REHAB AT THIS TIME.
[2020-07-06] MEDS: potassium chloride ER 10 mEq Tablet 20 MEQ PO (10:54)
[2020-07-06 11:22] LABS: Glucose Point of Care 129 mg/dL (70-110)
--- NOTE | 2020-07-06 13:33 | P.PN_ITS ---
Subjective Subjective: Interval history: Patient this morning. Extremity swelling today. Chest is clear to auscultation. Blood pressure is well controlled. Saturating 95% on 2 L/min nasal cannula at this time. Echocardiogram returned with EF 55%, grade 2 diastolic dysfunction no change in valvular status. Overall no significant change. Medications: Reviewed: Yes Vitals/I&O/Wt Last Vital Signs Temp 97.8 F 07/06/20 11:11 Pulse 98 07/06/20 11:11 Resp 15 07/06/20 11:11 BP 152/67 07/06/20 11:11 Pulse Ox 95 07/06/20 12:51 07/05/20 07/06/20 07/06/20 22:59 06:59 14:59 Intake Total 1520 / 1760 120 / 1880 540 / 540 Output Total 650 / 1300 900 / 2200 1160 / 1160 Balance 870 / 460 -780 / -320 -620 / -620 Weight last 48 hrs Weight 122.47 kg Physical Exam Narrative: EXAM NARRATIVE: GEN: Awake, alert and oriented, no acute distress CVS: S1S2 N RS: CTA B/L except for Abd: Soft, nt/nd , bs+ STRAPPER AND BUFFER: no focal neuro deficits Data : 07/06/20 04:25 07/06/20 04:25 A&P Assessment and plan (1) Acute respiratory distress: Suspect due to acute CHF that have been gradually worsening over the last few days and finally reached this threshold. Awaiting echocardiogram to see if any changes over previous. Review of past records, patient was noted to have grade 2 diastolic function even on the prior echocardiograms. This is unchanged from previous. LVEF is a 55%. No change in valvular status. Overall it appears that patient has been fairly well compensated as far as his heart failure goes, however it is possible Hypertensive urgency triggered the CHF exacerbation this time. Upon admission blood pressure was greater than 228, this is been fairly well controlled since he has been in the hospital. For today we will take off his Nitro-Bid patch and monitor his blood pressure. If blood pressure becomes uncontrolled by taking of the nitrate, we will add Imdur 30 mg p.o. daily. Above has also been discussed with his mobile homes repairer Dr. Rascon, we will arrange for patient to be seen in the office in the next 7 to 10 days of discharge. For now given that patient does not have any active chest pain, low with some troponin leak, most likely this was attributable to CHF exacerbation. For now since he is asymptomatic as well as chest pain goes, we will defer any stress testing. Telemetry with patient's rhythm in normal sinus rhythm, rate controlled. No events on telemetry. He is chronically on Xarelto so PE is less likely Status: Acute (2) Congestive heart failure: Patient has been fairly well compensated until this point,, now to have an decompensated diastolic heart failure. He has been receiving IV diuresis with 40 mg IV every 24. Today we will transition him to p.o. Lasix 40 twice daily. Patient is symptomatically improving, oxygen requirement is coming down, however noted to have increased lower extremity swelling today. Status: Acute Qualifiers: Heart failure chronicity: acute Heart failure type: unspecified Qualified Code(s): I50.9 - Heart failure, unspecified (3) Hypertensive urgency: Present on admission, blood pressure currently well controlled Status: Acute (4) NSTEMI (non-ST elevated myocardial infarction): Currently appears to be a type II process. Above discussed with his outpatient mobile homes repairer. Given that patient is currently without any chest pain, no acute ST-T changes on EKG, will hold off on stress test for now. . Rest as an outpatient. Status: Acute (5) S/P AVR (aortic valve replacement): Status: Chronic (6) Benign prostatic hyperplasia: Status: Chronic Qualifiers: Lower urinary tract symptom presence: unspecified whether lower urinary tract symptoms present Qualified Code(s): N40.0 - Benign prostatic hyperplasia without lower urinary tract symptoms (7) Chronic anticoagulation: Xarelto continued history of paroxysmal atrial fibrillation Status: Chronic Additional A&P Information Mild elevation in liver enzymes, suspect due to congestion Hypertension, blood pressure is controlled right Dyslipidemia Obesity with a BMI of 38.7 Atrial fibrillation, sounds paroxysmal by description, no acute events on tel emetry, remains in sinus rhythm. Attestations Medical Necessity Statement*: Optimization of CHF, respiratory status prior to discharge, likely to be in the upcoming 24 hours. Coding Level of Care Code Acute Change Consultant for Era Hung Diagnoses Acute respiratory distress R06.03 Congestive heart failure I50.9 Heart failure chronicity: acute Heart failure type: unspecified Hypertensive urgency I16.0 NSTEMI (non-ST elevated myocardial infarction) I21.4 S/P AVR (aortic valve replacement) Z95.2 Benign prostatic hyperplasia N40.0 Lower urinary tract symptom presence: unspecified whether lower urinary tract symptoms present Chronic anticoagulation Z79.01
--- NOTE | 2020-07-06 13:57 | PC.NURSE ---
During morning round Dr. Lei removed ntg ointment from right anterior thigh and instructed me to monitor patient's BP. If BP does not remain controlled she will start imdur. Afternoon dose of ntg ointment held.
[2020-07-06 16:17] LABS: Glucose Point of Care 120 mg/dL (70-110)
[2020-07-06] MEDS: FUROsemide 40 mg Tablet PO (18:11)
--- NOTE | 2020-07-06 20:07 | PC.NURSE ---
Rounding: Patient up to chair playing on his phone. Patient remains alert and oriented. Patient denies any needs at this time.
[2020-07-06 20:49] LABS: Glucose Point of Care 177 mg/dL (70-110)
[2020-07-06] MEDS: tamsulosin 0.4 mg Capsule PO (20:58)
[2020-07-06] MEDS: insulin glargine 100 units/1 mL 70 UNIT SUBCUT (20:59)
[2020-07-07] VITALS (99 sets, daily range): BP systolic 135–181; BP diastolic 58–74; PULSE 57–82; RESP 8–40; TEMP 36.5–36.8; O2SAT 91–98
[2020-07-07 05:00] LABS: Basophils # 0.1 10^3/uL (0.0-0.1); Basophils % 0.5 %; Eosinophils # 0.5 10^3/uL (0.0-0.8); Eosinophils % 4.3 %; Hematocrit 45.2 % (42.0-52.0); Hemoglobin 14.5 g/dL (11.7-16.6); Lymphocytes % 17.8 %; Mean Corpuscular HGB Conc 32.1 g/dL (30.0-36.0); Mean Corpuscular Hemoglobin 29.8 pg (28.0-34.0); Mean Corpuscular Volume 92.8 fL (80-94); Mean Platelet Volume 10.4 fL (7.4-10.4); Monocytes # 1.1 10^3/uL (0.2-0.9); Monocytes % 9.8 %; Neutrophils # 7.63 10^3/uL (1.8-7.7); Neutrophils % 67.2 %; Nucleated Red Blood Cells % 0 %; Platelet Count 211 10^3/cmm (130-400); Red Blood Count 4.87 10^6/uL (4.1-5.3); Red Cell Distribution Width 13.5 % (12.1-15.1); White Blood Count 11.4 10^3/uL (4.0-10.0)
[2020-07-07] MEDS: carvedilol 25 mg Tablet PO ×2 (05:00→17:09)
[2020-07-07 05:24] LABS: Alanine Aminotransferase 38 U/L (0-41); Alkaline Phosphatase 70 IU/L (40-130); Anion Gap 11.5 (5-19); Aspartate Amino Transferase 30 U/L (0-40); Blood Urea Nitrogen 22 mg/dL (8-23); Calcium 8.4 mg/dL (8.5-10.5); Carbon Dioxide 28 mmol/L (22-29); Chloride 107 mmol/L (98-107); Globulin 2.7 g/dL (1.3-4.6); Glucose 47 mg/dL (65-115); Osmolality Calculated 296 mOsm/kg (285-295); Potassium 3.5 mmol/L (3.5-5.1); Sodium 143 mmol/L (136-145); Total Bilirubin 1.5 mg/dL (0.15-1.2); Total Protein 6.7 g/dL (6.6-8.7)
[2020-07-07 05:42] LABS: Glucose Point of Care 49 mg/dL (70-110)
--- NOTE | 2020-07-07 05:46 | PC.NURSE ---
Patient blood glucose was 49. Patient given 8oz of orange juice per protocol and anastasia crackers and peanut butter. Patient is alert and oriented. Easily awakened and follows all commands.
--- NOTE | 2020-07-07 06:02 | PC.NURSE ---
Patient blood glucose 65. 4oz of orange given and a package of peanut butter and anastasia crackers. Patient alert and oriented. Following commands. very conversive.
[2020-07-07 06:09] LABS: Glucose Point of Care 65 mg/dL (70-110)
[2020-07-07 06:19] LABS: Glucose Point of Care 110 mg/dL (70-110)
--- NOTE | 2020-07-07 06:24 | PC.NURSE ---
Patient blood glucose 110. Patient alert oriented. States he feels fine.
[2020-07-07] MEDS: FUROsemide 40 mg Tablet PO ×2 (08:25→16:50)
[2020-07-07] MEDS: losartan 50 mg Tablet 100 MG PO (08:26)
[2020-07-07] MEDS: spironolactone 25 mg Tablet PO (08:26)
[2020-07-07] MEDS: duloxetine 60 mg Capsule PO (08:26)
[2020-07-07] MEDS: rivaroxaban 10 mg Tablet 20 MG PO (08:26)
[2020-07-07] MEDS: aspirin 81 mg EC Tablet PO (08:26)
[2020-07-07 11:14] LABS: Glucose Point of Care 140 mg/dL (70-110)
--- NOTE | 2020-07-07 12:55 | PM.DCS ---
Discharge Providers Date of Admission: 07/05/20 08:51 Date of Discharge: July 07, 2020 Attending Provider at Admission: Keely Brothers MD Attending Provider at Discharge: Callie Claros MD Primary Care Provider: Chon Bradshaw DO Diagnoses at Discharge Discharge Diagnosis (1) Acute respiratory distress: Status: Acute (2) Congestive heart failure: Status: Acute Qualifiers: Heart failure chronicity: acute Heart failure type: diastolic Qualified Code(s): I50.31 - Acute diastolic (congestive) heart failure (3) Hypertensive urgency: Status: Acute (4) NSTEMI (non-ST elevated myocardial infarction): Status: Acute (5) S/P AVR (aortic valve replacement): Status: Chronic Problem details: Bioprosthetic, bovine (6) Benign prostatic hyperplasia: Status: Chronic Qualifiers: Lower urinary tract symptom presence: unspecified whether lower urinary tract symptoms present Qualified Code(s): N40.0 - Benign prostatic hyperplasia without lower urinary tract symptoms (7) Chronic anticoagulation: Status: Chronic Problem details: Xarelto Reason for Visit Reason for Visit: resp dis Hospital Course Discharge Summary: 40-year-old male with past medical history of diabetes mellitus, dyslipidemia, hypertension, obesity, TIA, status post aortic valve replacement which is bioprosthetic, atrial fibrillation on anticoagulation with Xarelto, no past medical history of known CAD who presented to the hospital on 9 with chief complaints of shortness of breath. He was found to have an elevated BNP, lower extremity edema, reported a 20 pound weight gain over the past few months. His blood pressure at that time was 230s over 110s, he was in acute respiratory distress upon admission and did need some BiPAP. He was managed initially with IV diuresis with Lasix and nitroglycerin paste. He did have elevated troponins with significant delta of 19 and 12, however this was trending down, patient did not complain of any chest pain, there were no acute ST-T changes on EKG, findings are most consistent with a CHF exacerbation. He was diuresed with IV Lasix, which was then transitioned to p.o. Lasix. He has been making about 1.5 to 2 L of urine per day. His lower extremity swelling is improved at this time as is his dyspnea. He has been able to be weaned off of oxygen. Home care evaluation was performed prior to discharge and patient did not qualify. Echocardiogram was performed which showed normal left ventricular cavity size and LVEF of 55%. There was grade 2 diastolic dysfunction noted with moderately elevated filling pressures. Bioprosthetic AV was sitting in a normal position and functioning adequately with ELVIA of 1.7. Severely thickened mitral valve and mitral annular calcification. There is no reported change in the echo compared to that from 08/2018. It appears that patient has had a grade 2 diastolic dysfunction even prior, however has always been compensated up until this point. It is possible that hypertensive urgency may have been the trigger for the decompensation currently. For his medications, Imdur has been added to his existing regimen. Above findings have been discussed with his outpatient search engine optimization analyst and follow-up has been arranged in the next 7-10 days. Physical Exam Narrative: EXAM NARRATIVE: GEN: Awake, alert and oriented, no acute distress CVS: S1S2 N RS: CTA B/L Abd: Soft, nt/nd , bs+ STATION ENGINEER MAIN LINE: no focal neuro deficits Discharge Data Data Completed and Pending: Completed Studies During Hospitalization Category Date Time Status XR chest 1V narayan ble [id number] Stat Exams 07/04/20 21:58 Completed CV echo complete* [id number] Routine Ultrasound 07/05/20 07:26 Completed Labs from last 24 hours 07/07/20 07/07/20 07/07/20 10:58 06:15 05:58 WBC RBC Hgb Hct MCV MCH MCHC RDW Plt Count MPV Neut % (Auto) Lymph % (Auto) [place] % (Auto) Eos % (Auto) Baso % (Auto) Neut # (Auto) Lymph # (Auto) [place] # (Auto) Eos # (Auto) Baso # (Auto) Nucleated RBC % (a uto) Nucleated RBCs # Sodium Potassium Chloride Carbon Dioxide Anion Gap BUN Creatinine GFR Calculation Glucose POC Glucose 140 110 65 Calculated Osmolal ity Calcium Total Bilirubin AST ALT Alkaline Phosphata se Total Protein Albumin Globulin 07/07/20 07/07/20 07/07/20 05:39 04:30 04:30 WBC 11.4 H RBC 4.87 Hgb 14.5 Hct 45.2 MCV 92.8 MCH 29.8 MCHC 32.1 RDW 13.5 Plt Count 211 MPV 10.4 Neut % (Auto) 67.2 Lymph % (Auto) 17.8 [place] % (Auto) 9.8 Eos % (Auto) 4.3 Baso % (Auto) 0.5 Neut # (Auto) 7.63 Lymph # (Auto) 2.0 [place] # (Auto) 1.1 H Eos # (Auto) 0.5 Baso # (Auto) 0.1 Nucleated RBC % (a uto) 0 Nucleated RBCs # 0.0 Sodium 143 Potassium 3.5 Chloride 107 Carbon Dioxide 28 Anion Gap 11.5 BUN 22 Creatinine 0.9 GFR Calculation Not Reportable Glucose 47 L POC Glucose 49 Calculated Osmolal ity 296 H Calcium 8.4 L Total Bilirubin 1.5 H AST 30 ALT 38 Alkaline Phosphata se 70 Total Protein 6.7 Albumin 4.0 Globulin 2.7 07/06/20 07/06/20 20:34 15:50 WBC RBC Hgb Hct MCV MCH MCHC RDW Plt Count MPV Neut % (Auto) Lymph % (Auto) [place] % (Auto) Eos % (Auto) Baso % (Auto) Neut # (Auto) Lymph # (Auto) [place] # (Auto) Eos # (Auto) Baso # (Auto) Nucleated RBC % (a uto) Nucleated RBCs # Sodium Potassium Chloride Carbon Dioxide Anion Gap BUN Creatinine GFR Calculation Glucose POC Glucose 177 120 Calculated Osmolal ity Calcium Total Bilirubin AST ALT Alkaline Phosphata se Total Protein Albumin Globulin Vitals: Last Vital Signs Temp 98.0 F 07/07/20 11:00 Pulse 65 07/07/20 11:00 Resp 15 07/07/20 11:00 BP 160/63 07/07/20 11:00 Pulse Ox 96 07/07/20 11:00 Discharge Plan Discharge Patient Disposition: Home Condition: Stable Prescriptions: New furosemide 40 mg Tablet 40 mg PO BID@08,16 14 Days Qty: 30 RF: 0 isosorbide mononitrate 30 mg tablet extended release 24 hr 30 mg PO DAILY 30 Days Qty: 30 RF: 0 potassium chloride 20 mEq tablet extended release 20 meq PO DAILY 30 Days Qty: 30 RF: 0 Continued duloxetine [Cymbalta] 60 mg capsule,delayed release(DR/EC) 60 mg PO DAILY RF: 0 tamsulosin [Flomax] 0.4 mg capsule 0.4 mg PO BEDTIME RF: 0 Tresiba U-100 Insulin 100 unit/mL solution 75 unit SUBCUT BEDTIME RF: 0 aspirin [Aspir-81] 81 mg tablet,delayed release (DR/EC) 81 mg PO DAILY RF: 0 insulin aspart U-100 [Novolog U-100 Insulin aspart] 100 unit/mL solution 15 unit SUBCUT TID RF: 0 carvedilol 25 mg tablet 25 mg PO BID 90 Days Qty: 180 RF: 3 losartan 100 mg tablet 100 mg PO DAILY 90 Days Qty: 90 RF: 3 spironolactone 25 mg tablet 25 mg PO DAILY 90 Days Qty: 90 RF: 3 cholestyramine (with sugar) 4 gram powder 4 gm PO BID 90 Days Qty: 378 RF: 3 Lucero-C 1,000 mg PO DAILY RF: 0 Xarelto 20 mg tablet 20 mg PO DAILY RF: 0 Jardiance 10 mg tablet 25 mg PO DAILY 30 Days Qty: 30 RF: 0 Referrals: Chon Bradshaw DO [Primary Care Provider] - Discharge Attestations Time Spent in Discharge Care*: greater than 30 min Quality Metrics Clinical Quality Measures During this hospital stay, did patient experience: None Coding Level of Care Code Acute Batch Dumper for g Fwd Diagnoses Acute respiratory distress R06.03 Congestive heart failure I50.31 Heart failure chronicity: acute Heart failure type: diastolic Hypertensive urgency I16.0 NSTEMI (non-ST elevated myocardial infarction) I21.4 S/P AVR (aortic valve replacement) Z95.2 Benign prostatic hyperplasia N40.0 Lower urinary tract symptom presence: unspecified whether lower urinary tract symptoms present Chronic anticoagulation Z79.01
--- NOTE | 2020-07-07 13:00 | PC.NURSE ---
pt having no bleed. gauze given and taught pt how to hold pressure. while monitoring bleeding was noted to not have stopped. dr stephens notified. ordered nurse to get rhino rocket. dr attempted one without success, smaller one attempted and successful. pt instructed to leave it in and notify staff if the pressure became too much. will continue to monitor. call light within reach.
--- NOTE | 2020-07-07 14:00 | PC.NURSE ---
pt coughed up a large size old blood clot. dr stephens notified. will continue to monitor. call light with reach.
[2020-07-07 16:44] LABS: Glucose Point of Care 134 mg/dL (70-110)
[2020-07-07] MEDS: cefTRIAXone 1,000 MG in sodium chloride 0.9% (plus) 50 ML 100 MG IV (16:49)
[2020-07-07 20:13] LABS: Glucose Point of Care 196 mg/dL (70-110)
[2020-07-07] MEDS: acetaminophen 325 mg Tablet 650 MG PO (20:56)
[2020-07-07] MEDS: tamsulosin 0.4 mg Capsule PO (20:56)
[2020-07-07] MEDS: insulin glargine 100 units/1 mL 70 UNIT SUBCUT (21:01)
[2020-07-08] VITALS (55 sets, daily range): BP systolic 146–181; BP diastolic 65–74; PULSE 56–78; RESP 10–25; TEMP 36.8; O2SAT 94–95
[2020-07-08] MEDS: HYDROcodone-acetaminophen 5-325 mg Tablet 1 TAB PO ×2 (01:11→06:37)
[2020-07-08 05:17] LABS: Basophils % 0.3 %; Eosinophils # 0.4 10^3/uL (0.0-0.8); Eosinophils % 3.6 %; Hematocrit 47.6 % (42.0-52.0); Lymphocytes # 1.8 10^3/uL (0.8-4.8); Lymphocytes % 15.3 %; Mean Corpuscular HGB Conc 31.5 g/dL (30.0-36.0); Mean Corpuscular Hemoglobin 29.4 pg (28.0-34.0); Mean Corpuscular Volume 93.2 fL (80-94); Mean Platelet Volume 10.3 fL (7.4-10.4); Monocytes # 1.3 10^3/uL (0.2-0.9); Neutrophils # 7.96 10^3/uL (1.8-7.7); Neutrophils % 69.4 %; Nucleated Red Blood Cells % 0 %; Platelet Count 218 10^3/cmm (130-400); Red Blood Count 5.11 10^6/uL (4.1-5.3); Red Cell Distribution Width 13.2 % (12.1-15.1); White Blood Count 11.5 10^3/uL (4.0-10.0)
[2020-07-08 05:52] LABS: Alanine Aminotransferase 37 U/L (0-41); Albumin Level 3.9 g/dL (3.5-5.2); Alkaline Phosphatase 79 IU/L (40-130); Anion Gap 12.5 (5-19); Aspartate Amino Transferase 29 U/L (0-40); Blood Urea Nitrogen 19 mg/dL (8-23); Calcium 8.6 mg/dL (8.5-10.5); Carbon Dioxide 26 mmol/L (22-29); Chloride 105 mmol/L (98-107); Globulin 2.9 g/dL (1.3-4.6); Glucose 52 mg/dL (65-115); Osmolality Calculated 290 mOsm/kg (285-295); Potassium 3.5 mmol/L (3.5-5.1); Sodium 140 mmol/L (136-145); Total Bilirubin 1.5 mg/dL (0.15-1.2); Total Protein 6.8 g/dL (6.6-8.7)
[2020-07-08 06:09] LABS: Glucose Point of Care 61 mg/dL (70-110)
[2020-07-08] MEDS: carvedilol 25 mg Tablet PO (06:37)
--- NOTE | 2020-07-08 07:16 | PC.NURSE ---
pt resting in bed. assessment performed. no needs identified at this time. call light within reach, will continue to monitor.
[2020-07-08] MEDS: aspirin 81 mg EC Tablet PO (08:16)
[2020-07-08] MEDS: isosorbide mononitrate ER 30 mg Tablet PO (08:16)
[2020-07-08] MEDS: FUROsemide 40 mg Tablet PO (08:16)
[2020-07-08] MEDS: duloxetine 60 mg Capsule PO (08:16)
[2020-07-08] MEDS: spironolactone 25 mg Tablet PO (08:16)
[2020-07-08] MEDS: losartan 50 mg Tablet 100 MG PO (08:17)
[2020-07-08 11:33] LABS: Glucose Point of Care 121 mg/dL (70-110)
--- NOTE | 2020-07-08 15:59 | PM.DCS ---
Discharge Providers Date of Admission: 07/05/20 08:51 Date of Discharge: July 08, 2020 Attending Provider at Admission: Keely Brothers MD Attending Provider at Discharge: Callie Claros MD Primary Care Provider: Chon Bradshaw DO Diagnoses at Discharge Discharge Diagnosis (1) Acute respiratory distress: Status: Acute (2) Congestive heart failure: Status: Acute Qualifiers: Heart failure chronicity: acute Heart failure type: diastolic Qualified Code(s): I50.31 - Acute diastolic (congestive) heart failure (3) Hypertensive urgency: Status: Acute (4) NSTEMI (non-ST elevated myocardial infarction): Status: Acute (5) S/P AVR (aortic valve replacement): Status: Chronic Problem details: Bioprosthetic, bovine (6) Benign prostatic hyperplasia: Status: Chronic Qualifiers: Lower urinary tract symptom presence: unspecified whether lower urinary tract symptoms present Qualified Code(s): N40.0 - Benign prostatic hyperplasia without lower urinary tract symptoms (7) Chronic anticoagulation: Status: Chronic Problem details: Xarelto Reason for Visit Reason for Visit: resp dis Hospital Course Discharge Summary: 40-year-old male with past medical history of diabetes mellitus, dyslipidemia, hypertension, obesity, TIA, status post aortic valve replacement which is bioprosthetic, atrial fibrillation on anticoagulation with Xarelto, no past medical history of known CAD who presented to the hospital on 9 with chief complaints of shortness of breath. He was found to have an elevated BNP, lower extremity edema, reported a 20 pound weight gain over the past few months. His blood pressure at that time was 230s over 110s, he was in acute respiratory distress upon admission and did need some BiPAP. He was managed initially with IV diuresis with Lasix and nitroglycerin paste. He did have elevated troponins with significant delta of 19 and 12, however this was trending down, patient did not complain of any chest pain, there were no acute ST-T changes on EKG, findings are most consistent with a CHF exacerbation. He was diuresed with IV Lasix, which was then transitioned to p.o. Lasix. He has been making about 1.5 to 2 L of urine per day. His lower extremity swelling is improved at this time as is his dyspnea. He has been able to be weaned off of oxygen. Home care evaluation was performed prior to discharge and patient did not qualify. Echocardiogram was performed which showed normal left ventricular cavity size and LVEF of 55%. There was grade 2 diastolic dysfunction noted with moderately elevated filling pressures. Bioprosthetic AV was sitting in a normal position and functioning adequately with ELVIA of 1.7. Severely thickened mitral valve and mitral annular calcification. There is no reported change in the echo compared to that from 08/2018. It appears that patient has had a grade 2 diastolic dysfunction even prior, however has always been compensated up until this point. It is possible that hypertensive urgency may have been the trigger for the decompensation currently. For his medications, Imdur has been added to his existing regimen. Above findings have been discussed with his outpatient geology instructor and follow-up has been arranged in the next 7-10 days. Of note patient was originally planned to be discharged on July 07, however just prior to discharge he developed profuse nose bleeding which required placement of a Rhino Rocket. This was subsequently removed today and patient is bleeding was controlled. Xarelto has been placed on hold at the time of discharge today. He has been referred to see ENT Dr. Kirkpatrick to ensure there is no further bleeding prior to resuming Xarelto. Patient understands the plan of care. Physical Exam Narrative: EXAM NARRATIVE: GEN: Awake, alert and oriented, no acute distress CVS: S1S2 N RS: CTA B/L except crackles over RUL Abd: Soft, nt/nd , bs+ MAT CLEANING MACHINE OPERATOR: no focal neuro deficits Extremities significantly improved lower extremity edema Discharge Data Data Completed and Pending: Completed Studies During Hospitalization Category Date Time Status XR chest 1V narayan ble [id number] Stat Exams 07/04/20 21:58 Completed CV echo complete* [id number] Routine Ultrasound 07/05/20 07:26 Completed Labs from last 24 hours 07/08/20 07/08/20 07/08/20 11:23 06:05 04:25 WBC RBC Hgb Hct MCV MCH MCHC RDW Plt Count MPV Neut % (Auto) Lymph % (Auto) [place] % (Auto) Eos % (Auto) Baso % (Auto) Neut # (Auto) Lymph # (Auto) [place] # (Auto) Eos # (Auto) Baso # (Auto) Nucleated RBC % (a uto) Nucleated RBCs # Sodium 140 Potassium 3.5 Chloride 105 Carbon Dioxide 26 Anion Gap 12.5 BUN 19 Creatinine 0.9 GFR Calculation Not Reportable Glucose 52 L POC Glucose 121 61 Calculated Osmolal ity 290 Calcium 8.6 Total Bilirubin 1.5 H AST 29 ALT 37 Alkaline Phosphata se 79 Total Protein 6.8 Albumin 3.9 Globulin 2.9 07/08/20 07/07/20 07/07/20 04:25 20:07 16:39 WBC 11.5 H RBC 5.11 Hgb 15.0 Hct 47.6 MCV 93.2 MCH 29.4 MCHC 31.5 RDW 13.2 Plt Count 218 MPV 10.3 Neut % (Auto) 69.4 Lymph % (Auto) 15.3 [place] % (Auto) 11.0 Eos % (Auto) 3.6 Baso % (Auto) 0.3 Neut # (Auto) 7.96 H Lymph # (Auto) 1.8 [place] # (Auto) 1.3 H Eos # (Auto) 0.4 Baso # (Auto) 0.0 Nucleated RBC % (a uto) 0 Nucleated RBCs # 0.0 Sodium Potassium Chloride Carbon Dioxide Anion Gap BUN Creatinine GFR Calculation Glucose POC Glucose 196 134 Calculated Osmolal ity Calcium Total Bilirubin AST ALT Alkaline Phosphata se Total Protein Albumin Globulin Vitals: Last Vital Signs Temp 98.2 F 07/08/20 04:10 Pulse 74 07/08/20 12:03 Resp 18 07/08/20 12:03 BP 146/72 07/08/20 12:03 Pulse Ox 95 07/08/20 12:03 Discharge Plan Discharge Patient Disposition: Home Condition: Stable Prescriptions: New furosemide 40 mg Tablet 40 mg PO BID@08,16 14 Days Qty: 30 RF: 0 isosorbide mononitrate 30 mg tablet extended release 24 hr 30 mg PO DAILY 30 Days Qty: 30 RF: 0 potassium chloride 20 mEq tablet extended release 20 meq PO DAILY 30 Days Qty: 30 RF: 0 Continued duloxetine [Cymbalta] 60 mg capsule,delayed release(DR/EC) 60 mg PO DAILY RF: 0 tamsulosin [Flomax] 0.4 mg capsule 0.4 mg PO BEDTIME RF: 0 Tresiba U-100 Insulin 100 unit/mL solution 75 unit SUBCUT BEDTIME RF: 0 aspirin [Aspir-81] 81 mg tablet,delayed release (DR/EC) 81 mg PO DAILY RF: 0 insulin aspart U-100 [Novolog U-100 Insulin aspart] 100 unit/mL solution 15 unit SUBCUT TID RF: 0 carvedilol 25 mg tablet 25 mg PO BID 90 Days Qty: 180 RF: 3 losartan 100 mg tablet 100 mg PO DAILY 90 Days Qty: 90 RF: 3 spironolactone 25 mg tablet 25 mg PO DAILY 90 Days Qty: 90 RF: 3 cholestyramine (with sugar) 4 gram powder 4 gm PO BID 90 Days Qty: 378 RF: 3 Lucero-C 1,000 mg PO DAILY RF: 0 Jardiance 10 mg tablet 25 mg PO DAILY 30 Days Qty: 30 RF: 0 Held Xarelto 20 mg tablet 20 mg PO DAILY RF: 0 Hold Instructions: Resume on 07/12/20. resume after seeing Dr. hernandez and ensuring no further bleeding Discharge Orders: Discharge Order (Routine); Ordered 07/07/20 Ordered By: Callie Claros Referrals: Fidel Hernandez MD [Physician] - (You have an appointment with Dr. Hernandez on July 11, at 9:40am. If you have any questions or concerns please call the [facility]. ) Jaime Moore M.D [Physician] - 07/14/20 3:15 pm (* Your discharge follow up appointment with Dr. Moore is on July 14, 2020 at 3:15pm. If you have any questions or concerns please contact [facility]. ) Discharge Diet: Cardiac, Diabetic and Low Salt Discharge Activity: Resume usual activity Patient Instructions: Anticoagulation Therapy, Furosemide (By mouth), Potassium Chloride (By mouth), Isosorbide Mononitrate (By mouth), Myocardial Infarction (DC), Benign Prostatic Hypertrophy (DC) Discharge Date/Time: 07/08/20 13:41 Discharge Attestations Time Spent in Discharge Care*: greater than 30 min Quality Metrics Clinical Quality Measures During this hospital stay, did patient experience: None Coding Level of Care Code Acute Cap Machine Operator for Craigg Fwd Diagnoses Acute respiratory distress R06.03 Congestive heart failure I50.31 Heart failure chronicity: acute Heart failure type: diastolic Hypertensive urgency I16.0 NSTEMI (non-ST elevated myocardial infarction) I21.4 S/P AVR (aortic valve replacement) Z95.2 Benign prostatic hyperplasia N40.0 Lower urinary tract symptom presence: unspecified whether lower urinary tract symptoms present Chronic anticoagulation Z79.01
== END 2020-07-08 13:41 | disposition home or self-care (01) | DRG 280 ==
LOC: ER 07-05 03:07 → CSU 07-05 03:14
PROVIDERS: Emergency Medicine; Admitting Provider Hospitalist; PCP Internal Medicine; Visit Provider Student in an Organized Health Care Education/Training Program
DX: I21.4 Non-ST elevation (NSTEMI) myocardial infarction (principal); I50.31 Acute diastolic (congestive) heart failure; I16.0 Hypertensive urgency; N40.0 Benign prostatic hyperplasia without lower urinary tract symptoms; Z79.01 Long term (current) use of anticoagulants; E11.9 Type 2 diabetes mellitus without complications; Z95.2 Presence of prosthetic heart valve; R04.0 Epistaxis; E78.5 Hyperlipidemia, unspecified; I11.0 Hypertensive heart disease with heart failure; Z86.73 Personal history of transient ischemic attack (TIA), and cerebral infarction without residual deficits; E66.9 Obesity, unspecified; Z68.38 Body mass index [BMI] 38.0-38.9, adult; Z79.82 Long term (current) use of aspirin; Z79.4 Long term (current) use of insulin; Z87.891 Personal history of nicotine dependence; I48.0 Paroxysmal atrial fibrillation
CPT/HCPCS: 12345; 36415; 36416; 71045; 80053; 80061; 81001; 82728; 82962; 83605; 83735; 83880; 84145; 84484; 85025; 85378; 85384; 85610; 86140; 87426; 87804; 93005; 93306; 94660; 96372; 96375; 99284; G0378; J0696; J1815 ×2; J1940

== ENCOUNTER 2021-05-06 10:33 | Inpatient (IN) | payer MEDICARE, SELFPAY ==
[2021-05-06] VITALS (18 sets, daily range): BP systolic 91–158; BP diastolic 47–90; PULSE 67–94; RESP 16–22; TEMP 36.3–38.8; O2SAT 91–98; BMI 36.6
--- NOTE | 2021-05-06 11:50 | W.ED.EXTPRO ---
Documented by User: HECTOR Brice 05/06/21 15:49 HPI - Extremity Problem General: Chief complaint: Extremity Problem,Nontraumatic Stated complaint: R FOOT/TOE PAIN Time Seen by Provider: 05/06/21 11:48 Source: patient Mode of arrival: ambulatory Limitations: no limitations History of Present Illness: HPI Narrative: Patient is a 70-year-old male with a history of DM, obesity, HTN, CHF, HLD, and atrial fibrillation who presents to the ED today for evaluation of a right foot infection. Patient tells me over the past 3 to 4 days he has slowly noticed redness to the top of his right foot. He states about 2 to 3 days ago he began noticing his right fourth toe turning colors. He states his fifth toenail often digs in to the fourth toe and wonders if it got infected. He states he does see a project management specialist (located here in town in the [facility]?) for routine diabetic management. He states his last hemoglobin A1c was 6.9. MD Complaint: extremity pain and extremity swelling Onset (ago): day(s) Pain Consistency: constant Location: right and lower extremity Radiation: none Relieving factors: nothing Exacerbating factors: nothing Associated symptoms: Reports no associated symptoms; Deny chest pain or fever(s) Review of Systems Const: Denies: fever(s), chills, body aches, fatigue or malaise Card: Denies: chest pain Resp: Denies: dyspnea GI: Denies: abdominal pain, nausea or vomiting Musc: Reports: extremity pain and extremity swelling; Denies: neck pain or back pain Skin/Breast: Reports: changes in skin color Neuro: Reports: sensory changes (chronic LE-diabetic ) [facility] ED PFSH: Medical History (Updated 05/06/21 @ 15:49 by HECTOR Brice) Anticoagulation adequate with anticoagulant therapy Xarelto Atrial fibrillation Paroxysmal Benign prostatic hyperplasia Diabetes Dyslipidemia History of nonmelanoma skin cancer HTN (hypertension) Obesity TIA (transient ischemic attack) Varicose vein of leg Surgical History S/P AVR (aortic valve replacement) Bioprosthetic, bovine S/P cataract extraction S/P cholecystectomy Family History Father Diabetes Hypertension Grandfather Diabetes PATERNAL Hypertension PATERNAL Social History Marital status: / service: No Current occupational status: retired Physical Exam Const: COMMON NORMALS: no acute distress, patient oriented x3, no limitations and alert NUTRITIONAL APPEARANCE: obese ORIENTATION/CONSCIOUSNESS: Yes awake, Yes oriented to person, Yes oriented to place and Yes oriented to time Resp: COMMON NORMALS: normal respiratory effort Cardio: COMMON NORMALS: regular rate and regular rhythm RATE: regular rate RHYTHM: regular rhythm Extremity: RIGHT LOWER EXTREMITY: Yes foot & digits OTHER: patient with erythema and warmth to entire dorsum of R foot; there is lymphangitic streaking present to about an inch above the ankle mortise; he has diffuse necrosis to 4th toe with skin breakdown in 3-4 digit fold as well as the lateral aspect of the 4th toe; there is foul odor present Neuro: COMMON NORMALS: patient oriented x3 SENSORIUM/ORIENTATION: Yes alert, Yes oriented to person, Yes oriented to place and Yes oriented to time Skin: NARRATIVE SKIN EXAM: see extremity assessment Course Consultations: Consultation #1: Dr. Blanco-graciously will consult on patient; request patient be admitted to hospitalist; request NPO Consultation #2: Dr. Cuevas-accepts patient; agrees with Lance/Yudith, recommends fluids at 50cc/hour due to CHF, IV d50 now that patient is NPO Vital Signs: Vital signs: Vital Signs Temperature 98.2 F 05/06/21 11:06 Pulse Rate 81 05/06/21 15:00 Respiratory Rate 18 05/06/21 15:00 Blood Pressure 141/53 05/06/21 15:00 Pulse Oximetry 93 05/06/21 15:00 MDM - Extremity (Nontraumatic) MDM Narrative: Medical decision making narrative: Patient is a nice 70-year-old here with a right foot infection-he has osteomyelitis of his proximal phalanx of his fourth toe and concern for necrotizing fasciitis. Patient will be admitted to the hospitalist and Dr. Blanco had graciously is agreed to consult on patient. Lab Data: Labs: Lab Results 05/06/21 05/06/21 05/06/21 Range/Units 12:05 12:05 12:05 WBC 19.8 H (4.0-10.0) 10^3/ uL RBC 4.84 (4.1-5.3) 10^6/u L Hgb 14.3 (11.7-16.6) g/dL Hct 42.4 (42.0-52.0) % MCV 87.6 (80-94) fL MCH 29.5 (28.0-34.0) pg MCHC 33.7 (30.0-36.0) g/dL RDW 13.7 (12.1-15.1) % Plt Count 211 (130-400) 10^3/c mm MPV 10.3 (7.4-10.4) fL Neut % (Auto) 82.2 % Lymph % (Auto) 5.6 % [place] % (Auto) 10.3 % Eos % (Auto) 1.0 % Baso % (Auto) 0.4 % Neut # (Auto) 16.28 H (1.8-7.7) 10^3/u L Lymph # (Auto) 1.1 (0.8-4.8) 10^3/u L [place] # (Auto) 2.0 H (0.2-0.9) 10^3/u L Eos # (Auto) 0.2 (0.0-0.8) 10^3/u L Baso # (Auto) 0.1 (0.0-0.1) 10^3/u L Nucleated RBC % (a uto) 0 % Nucleated RBCs # 0.0 /100WBC Sodium 138 (136-145) mmol/L Potassium 3.0 L (3.5-5.1) mmol/L Chloride 100 (98-107) mmol/L Carbon Dioxide 26 (22-29) mmol/L Anion Gap 15.0 (5-19) BUN 17 (8-23) mg/dL Creatinine 1.4 H (0.7-1.2) mg/dL GFR Calculation Not Reportable Glucose 41 L (65-115) mg/dL POC Glucose (70-110) mg/dL Calculated Osmolal ity 284 L (285-295) mOsm/k g Lactic Acid 1.8 (0.5-2.2) mmol/L Calcium 8.3 L (8.5-10.5) mg/dL Magnesium (1.7-2.3) mg/dL Total Bilirubin 1.7 H (0.15-1.2) mg/dL AST 23 (0-40) U/L ALT 16 (0-41) U/L Alkaline Phosphata se 84 (40-130) IU/L C-Reactive Protein 147.8 H (0.0-4.9) mg/L Total Protein 7.0 (6.6-8.7) g/dL Albumin 3.7 (3.5-5.2) g/dL Globulin 3.3 (1.3-4.6) g/dL 05/06/21 05/06/21 05/06/21 Range/Units 12:05 14:45 15:30 WBC (4.0-10.0) 10^3/ uL RBC (4.1-5.3) 10^6/u L Hgb (11.7-16.6) g/dL Hct (42.0-52.0) % MCV (80-94) fL MCH (28.0-34.0) pg MCHC (30.0-36.0) g/dL RDW (12.1-15.1) % Plt Count (130-400) 10^3/c mm MPV (7.4-10.4) fL Neut % (Auto) % Lymph % (Auto) % [place] % (Auto) % Eos % (Auto) % Baso % (Auto) % Neut # (Auto) (1.8-7.7) 10^3/u L Lymph # (Auto) (0.8-4.8) 10^3/u L [place] # (Auto) (0.2-0.9) 10^3/u L Eos # (Auto) (0.0-0.8) 10^3/u L Baso # (Auto) (0.0-0.1) 10^3/u L Nucleated RBC % (a uto) % Nucleated RBCs # /100WBC Sodium (136-145) mmol/L Potassium (3.5-5.1) mmol/L Chloride (98-107) mmol/L Carbon Dioxide (22-29) mmol/L Anion Gap (5-19) BUN (8-23) mg/dL Creatinine (0.7-1.2) mg/dL GFR Calculation Glucose (65-115) mg/dL POC Glucose 50 L 54 L (70-110) mg/dL Calculated Osmolal ity (285-295) mOsm/k g Lactic Acid (0.5-2.2) mmol/L Calcium (8.5-10.5) mg/dL Magnesium 2.1 (1.7-2.3) mg/dL Total Bilirubin (0.15-1.2) mg/dL AST (0-40) U/L ALT (0-41) U/L Alkaline Phosphata se (40-130) IU/L C-Reactive Protein (0.0-4.9) mg/L Total Protein (6.6-8.7) g/dL Albumin (3.5-5.2) g/dL Globulin (1.3-4.6) g/dL Imaging Data^: XR R foot: Radiologist's impression: [address] [id number] ReportSigned Patient: Kenia Roland #: [id number]: 1950cct#:[id number]/Sex: 70 / MADM Date: 05/06/21Loc: ERRoom/Bed:Attending Dr: Ordering Provider/Ordering MD: Clarisse Shen Date of Service: 05/06/21 Procedure(s): XR foot RT min 3V* 13561 Accession Number(s): [id number] Report Number: [id number] PROCEDURE INFORMATION: Exam: XR Right Foot Exam date and time: 05/06/2021 11:58 AM Age: 70 years old Clinical indication: Pain; Foot; Right; Additional info: Foot infection; 4th toe necrosis TECHNIQUE: Imaging protocol: XR Right foot. Views: 3 or more views. COMPARISON: No relevant prior studies available. FINDINGS: Bones/joints: No fracture or other acute bony abnormalities are seen. No bony destruction or erosion is present. Soft tissues: There is soft tissue swelling around the foot. Some gas is present in the soft tissues of the 4th toe consistent with history of 4th toe infection and 4th toe necrosis. XR/XR foot RT min 3V* [id number] IMPRESSION: 1. Soft tissue swelling with subcutaneous emphysema in the 4th toe consistent with infection. 2. No bony abnormality. Dictated By:Scott Warner By:Scott Warner Date/Time:05/06/21 1340DD/ 1339 US arterial R LE : My impression: Per Jessee Byrd US tech-monophasic flow throughout bilateral LEs; LILLIAN 0.[address] R foot: [facility] [place], [place] [address]OY Scan ReportSigned Patient: Kenia Roland #: [id number]: 1950cct#:[id number]/Sex: 70 / MADM Date: 05/06/21Loc: ERRoom/Bed:Attending Dr: Ordering Provider/Ordering MD: Clarisse Shen Date of Service: 05/06/21 Procedure(s): CT foot RT w con [id number] Accession Number(s): [id number] Report Number: [id number] PROCEDURE INFORMATION: Exam: CT Right Lower Extremity With Contrast, Foot Exam date and time: 05/06/2021 2:07 PM Age: 70 years old Clinical indication: Right foot pain. Infection. TECHNIQUE: Imaging protocol: CT of the Right lower extremity with intravenous contrast was performed. Exam focused on the foot. Radiation optimization: All CT scans at this facility use at least one of these dose optimization techniques: automated exposure control; mA and/or kV adjustment per patient size (includes targeted exams where dose is matched to clinical indication); or iterative reconstruction. Contrast material: VISIPAQUE 320; Contrast volume: 95 ml; Contrast route: INTRAVENOUS (IV); COMPARISON: CR (LOW EXM, ) 05/06/2021 12:38 PM RADIATION DOSE METRICS: Total DLP (mGy-cm): 168.89 FINDINGS: Probable ulcer involving the 4th toe. There are foci of gas within the soft tissues of the 4th toe suspicious for necrotizing fasciitis. There is an erosion involving the distal and lateral aspect of the proximal phalanx of the 4th toe likely reflecting osteomyelitis. There are foci of gas immediately adjacent to the middle phalanx of the 4th toe; however, no definite osseous erosion is seen to confirm osteomyelitis. Consider MRI to further assess if clinically warranted. There is subcutaneous edema involving the foot and ankle suspicious for cellulitis. Mild scattered degenerative changes are noted. No acute fracture is seen. Posterior calcaneal spur. CT/CT foot RT w con [id number] IMPRESSION: 1. Probable ulcer involving the 4th toe. 2. Foci of gas within the soft tissues of the 4th toe suspicious for necrotizing fasciitis. 3. Osteomyelitis involving the proximal phalanx of the 4th toe. 4. Foci of gas immediately adjacent to the middle phalanx of the 4th toe; however, no definite osseous erosion is seen to confirm osteomyelitis. Consider MRI to further assess if clinically warranted. 5. Subcutaneous edema involving the foot and ankle suspicious for cellulitis. Radiation Dose CTDIVOL = (mGy): DLP = 168.89 (mGy-cm) Dictated By:John Angelesigned By:John Angelesigned Date/Time:05/06/211505DD/ 05 Discharge Plan Discharge Patient Disposition: Admitted As Inpatient Clinical Impression: Osteomyelitis of toe of left foot, Diabetes, Acute hypokalemia, Hypoglycemia, PVD (peripheral vascular disease) Condition: Stable Prescriptions: No Action duloxetine [Cymbalta] 60 mg capsule,delayed release(DR/EC) 60 mg PO DAILY RF: 0 tamsulosin [Flomax] 0.4 mg capsule 0.8 mg PO BEDTIME RF: 0 carvedilol 25 mg tablet 25 mg PO BID Qty: 180 RF: 3 multivitamin Tablet 1 tab PO DAILY RF: 0 Vitamin C 1,000 mg Tablet 1,000 mg PO QAM RF: 0 Novolog PenFill U-100 Insulin 100 unit/mL cartridge 25 - 30 unit SUBCUT TID RF: 0 Tresiba FlexTouch U-200 200 unit/mL (3 mL) insulin pen 85 - 90 unit SUBCUT BEDTIME RF: 0 Jardiance 25 mg tablet 25 mg PO QAM RF: 0 furosemide 40 mg tablet See Rx Instructions .ROUTE .COMPLEX RF: 0 isosorbide mononitrate 30 mg tablet extended release 24 hr 30 mg PO QAM RF: 0 spironolactone 25 mg tablet 25 mg PO QAM RF: 0 losartan 100 mg tablet 100 mg PO QAM RF: 0 Xarelto 20 mg tablet 20 mg PO QPM RF: 0 potassium chloride 20 mEq tablet extended release 20 meq PO QAM RF: 0 Referrals: Chon Bradshaw DO [Primary Care Provider] - Coding Level of Care Code ED Infrastructure Manager for Chg Fwd Exam Expanded Problem Focused Documented by User: Cosme Doyle DO 05/06/21 15:44 HPI - Extremity Problem General: Chief complaint: Extremity Problem,Nontraumatic Stated complaint: R FOOT/TOE PAIN Time Seen by Provider: 05/06/21 11:48 PFSH ED PFSH: Medical History (Updated 05/06/21 @ 15:49 by HECTOR Brice) Anticoagulation adequate with anticoagulant therapy Xarelto Atrial fibrillation Paroxysmal Benign prostatic hyperplasia Diabetes Dyslipidemia History of nonmelanoma skin cancer HTN (hypertension) Obesity TIA (transient ischemic attack) Varicose vein of leg Surgical History S/P AVR (aortic valve replacement) Bioprosthetic, bovine S/P cataract extraction S/P cholecystectomy Family History Father Diabetes Hypertension Grandfather Diabetes PATERNAL Hypertension PATERNAL Social History Marital status: / service: No Current occupational status: retired Course Vital Signs: Vital signs: Vital Signs Temperature 98.2 F 05/06/21 11:06 Pulse Rate 81 05/06/21 15:00 Respiratory Rate 18 05/06/21 15:00 Blood Pressure 141/53 05/06/21 15:00 Pulse Oximetry 93 05/06/21 15:00 MDM - Extremity (Nontraumatic) MDM Narrative: Medical decision making narrative: Patient reviewed and discussed with Clarisse Shen. Orders written she is discussed with bernabe Davey and Dr. Blanco. Lab Data: Labs: Lab Results 05/06/21 05/06/21 05/06/21 Range/Units 12:05 12:05 12:05 WBC 19.8 H (4.0-10.0) 10^3/ uL RBC 4.84 (4.1-5.3) 10^6/u L Hgb 14.3 (11.7-16.6) g/dL Hct 42.4 (42.0-52.0) % MCV 87.6 (80-94) fL MCH 29.5 (28.0-34.0) pg MCHC 33.7 (30.0-36.0) g/dL RDW 13.7 (12.1-15.1) % Plt Count 211 (130-400) 10^3/c mm MPV 10.3 (7.4-10.4) fL Neut % (Auto) 82.2 % Lymph % (Auto) 5.6 % [place] % (Auto) 10.3 % Eos % (Auto) 1.0 % Baso % (Auto) 0.4 % Neut # (Auto) 16.28 H (1.8-7.7) 10^3/u L Lymph # (Auto) 1.1 (0.8-4.8) 10^3/u L [place] # (Auto) 2.0 H (0.2-0.9) 10^3/u L Eos # (Auto) 0.2 (0.0-0.8) 10^3/u L Baso # (Auto) 0.1 (0.0-0.1) 10^3/u L Nucleated RBC % (a uto) 0 % Nucleated RBCs # 0.0 /100WBC Sodium 138 (136-145) mmol/L Potassium 3.0 L (3.5-5.1) mmol/L Chloride 100 (98-107) mmol/L Carbon Dioxide 26 (22-29) mmol/L Anion Gap 15.0 (5-19) BUN 17 (8-23) mg/dL Creatinine 1.4 H (0.7-1.2) mg/dL GFR Calculation Not Reportable Glucose 41 L (65-115) mg/dL POC Glucose (70-110) mg/dL Calculated Osmolal ity 284 L (285-295) mOsm/k g Lactic Acid 1.8 (0.5-2.2) mmol/L Calcium 8.3 L (8.5-10.5) mg/dL Magnesium (1.7-2.3) mg/dL Total Bilirubin 1.7 H (0.15-1.2) mg/dL AST 23 (0-40) U/L ALT 16 (0-41) U/L Alkaline Phosphata se 84 (40-130) IU/L C-Reactive Protein 147.8 H (0.0-4.9) mg/L Total Protein 7.0 (6.6-8.7) g/dL Albumin 3.7 (3.5-5.2) g/dL Globulin 3.3 (1.3-4.6) g/dL 05/06/21 05/06/21 05/06/21 Range/Units 12:05 14:45 15:30 WBC (4.0-10.0) 10^3/ uL RBC (4.1-5.3) 10^6/u L Hgb (11.7-16.6) g/dL Hct (42.0-52.0) % MCV (80-94) fL MCH (28.0-34.0) pg MCHC (30.0-36.0) g/dL RDW (12.1-15.1) % Plt Count (130-400) 10^3/c mm MPV (7.4-10.4) fL Neut % (Auto) % Lymph % (Auto) % [place] % (Auto) % Eos % (Auto) % Baso % (Auto) % Neut # (Auto) (1.8-7.7) 10^3/u L Lymph # (Auto) (0.8-4.8) 10^3/u L [place] # (Auto) (0.2-0.9) 10^3/u L Eos # (Auto) (0.0-0.8) 10^3/u L Baso # (Auto) (0.0-0.1) 10^3/u L Nucleated RBC % (a uto) % Nucleated RBCs # /100WBC Sodium (136-145) mmol/L Potassium (3.5-5.1) mmol/L Chloride (98-107) mmol/L Carbon Dioxide (22-29) mmol/L Anion Gap (5-19) BUN (8-23) mg/dL Creatinine (0.7-1.2) mg/dL GFR Calculation Glucose (65-115) mg/dL POC Glucose 50 L 54 L (70-110) mg/dL Calculated Osmolal ity (285-295) mOsm/k g Lactic Acid (0.5-2.2) mmol/L Calcium (8.5-10.5) mg/dL Magnesium 2.1 (1.7-2.3) mg/dL Total Bilirubin (0.15-1.2) mg/dL AST (0-40) U/L ALT (0-41) U/L Alkaline Phosphata se (40-130) IU/L C-Reactive Protein (0.0-4.9) mg/L Total Protein (6.6-8.7) g/dL Albumin (3.5-5.2) g/dL Globulin (1.3-4.6) g/dL Discharge Plan Discharge Patient Disposition: Admitted As Inpatient Clinical Impression: Osteomyelitis of toe of left foot, Diabetes, Acute hypokalemia, Hypoglycemia, PVD (peripheral vascular disease) Condition: Stable Prescriptions: No Action duloxetine [Cymbalta] 60 mg capsule,delayed release(DR/EC) 60 mg PO DAILY RF: 0 tamsulosin [Flomax] 0.4 mg capsule 0.8 mg PO BEDTIME RF: 0 carvedilol 25 mg tablet 25 mg PO BID Qty: 180 RF: 3 multivitamin Tablet 1 tab PO DAILY RF: 0 Vitamin C 1,000 mg Tablet 1,000 mg PO QAM RF: 0 Novolog PenFill U-100 Insulin 100 unit/mL cartridge 25 - 30 unit SUBCUT TID RF: 0 Tresiba FlexTouch U-200 200 unit/mL (3 mL) insulin pen 85 - 90 unit SUBCUT BEDTIME RF: 0 Jardiance 25 mg tablet 25 mg PO QAM RF: 0 furosemide 40 mg tablet See Rx Instructions .ROUTE .COMPLEX RF: 0 isosorbide mononitrate 30 mg tablet extended release 24 hr 30 mg PO QAM RF: 0 spironolactone 25 mg tablet 25 mg PO QAM RF: 0 losartan 100 mg tablet 100 mg PO QAM RF: 0 Xarelto 20 mg tablet 20 mg PO QPM RF: 0 potassium chloride 20 mEq tablet extended release 20 meq PO QAM RF: 0 Referrals: Chon Bradshaw DO [Primary Care Provider] - Coding Level of Care Code ED Infrastructure Manager for g Fwd Exam Expanded Problem Focused
--- NOTE | 2021-05-06 11:58 | XRR_ITS ---
PROCEDURE INFORMATION: Exam: XR Right Foot Exam date and time: 05/06/2021 11:58 AM Age: 70 years old Clinical indication: Pain; Foot; Right; Additional info: Foot infection; 4th toe necrosis TECHNIQUE: Imaging protocol: XR Right foot. Views: 3 or more views. COMPARISON: No relevant prior studies available. FINDINGS: Bones/joints: No fracture or other acute bony abnormalities are seen. No bony destruction or erosion is present. Soft tissues: There is soft tissue swelling around the foot. Some gas is present in the soft tissues of the 4th toe consistent with history of 4th toe infection and 4th toe necrosis. XR/XR foot RT min 3V* [id number] IMPRESSION: 1. Soft tissue swelling with subcutaneous emphysema in the 4th toe consistent with infection. 2. No bony abnormality.
--- NOTE | 2021-05-06 12:16 | USCV_ITS ---
Luan Surendra Age: 70 Gender: M : 1950 Exam Date: 05/06/2021 12:50 Ordering Phys: Clarisse Shen Technologist: Exam Location: [facility] Indication: RT BLACK TOE Risk Factors: Previous Vascular Surgery: RIGHT LEFT BP: 140.0 / 85.00 BP: 140.0/ 85.00 0 0 Waveform Velocity (cm/s) Velocity (cm/s) Waveform Biphasic 93.3 Iliac Prox Biphasic 87.2 Iliac Mid Biphasic 107.5 Iliac Distal Biphasic FIELD CASE MANAGER 111.5 Biphasic 94.8 SFA Prox Biphasic 103.7 SFA Mid Biphasic 145.7 SFA Dist Biphasic 58.8 POP Monophasic 29.4 SPECIAL EVENT ASSISTANT Monophasic 31.0 DPA 0.5 LILLIAN FINDINGS Moderate to heavy heterogeneous irregular plaques in the right iliac and femoral artery. Diminished resting LILLIAN of 0.5 on the right side CONCLUSIONS Abnormal resting LILLIAN on the right side, suggestive of moderate to severe peripheral artery disease. Moderate to heavy heterogeneous irregular plaques in the iliac and femoral artery on the right side. Dr Nelson Garcia MD FAC (Electronically Signed) Final Date: 14 May 2021 18:37 S
[2021-05-06] MEDS: piperacillin-tazobactam 3.375 GM in sodium chloride 0.9% (plus) 50 ML IV (12:34)
[2021-05-06] MEDS: vancomycin 1,000 MG in sodium chloride 0.9% 250 ML 250 MG IV (12:52)
[2021-05-06 12:58] LABS: Basophils # 0.1 10^3/uL (0.0-0.1); Basophils % 0.4 %; Eosinophils # 0.2 10^3/uL (0.0-0.8); Hematocrit 42.4 % (42.0-52.0); Hemoglobin 14.3 g/dL (11.7-16.6); Lymphocytes # 1.1 10^3/uL (0.8-4.8); Lymphocytes % 5.6 %; Mean Corpuscular HGB Conc 33.7 g/dL (30.0-36.0); Mean Corpuscular Hemoglobin 29.5 pg (28.0-34.0); Mean Corpuscular Volume 87.6 fL (80-94); Mean Platelet Volume 10.3 fL (7.4-10.4); Monocytes % 10.3 %; Neutrophils # 16.28 10^3/uL (1.8-7.7); Neutrophils % 82.2 %; Nucleated Red Blood Cells % 0 %; Platelet Count 211 10^3/cmm (130-400); Red Blood Count 4.84 10^6/uL (4.1-5.3); Red Cell Distribution Width 13.7 % (12.1-15.1); White Blood Count 19.8 10^3/uL (4.0-10.0)
[2021-05-06 13:15] LABS: Alanine Aminotransferase 16 U/L (0-41); Albumin Level 3.7 g/dL (3.5-5.2); Alkaline Phosphatase 84 IU/L (40-130); Aspartate Amino Transferase 23 U/L (0-40); Blood Urea Nitrogen 17 mg/dL (8-23); C Reactive Protein 147.8 mg/L (0.0-4.9); Calcium 8.3 mg/dL (8.5-10.5); Carbon Dioxide 26 mmol/L (22-29); Chloride 100 mmol/L (98-107); Globulin 3.3 g/dL (1.3-4.6); Glucose 41 mg/dL (65-115); Osmolality Calculated 284 mOsm/kg (285-295); Sodium 138 mmol/L (136-145); Total Bilirubin 1.7 mg/dL (0.15-1.2)
[2021-05-06 13:16] LABS: Lactic Sepsis W/Reflex 1.8 mmol/L (0.5-2.2)
--- NOTE | 2021-05-06 14:07 | CTR_ITS ---
PROCEDURE INFORMATION: Exam: CT Right Lower Extremity With Contrast, Foot Exam date and time: 05/06/2021 2:07 PM Age: 70 years old Clinical indication: Right foot pain. Infection. TECHNIQUE: Imaging protocol: CT of the Right lower extremity with intravenous contrast was performed. Exam focused on the foot. Radiation optimization: All CT scans at this facility use at least one of these dose optimization techniques: automated exposure control; mA and/or kV adjustment per patient size (includes targeted exams where dose is matched to clinical indication); or iterative reconstruction. Contrast material: VISIPAQUE 320; Contrast volume: 95 ml; Contrast route: INTRAVENOUS (IV); COMPARISON: CR (LOW EXM, ) 05/06/2021 12:38 PM RADIATION DOSE METRICS: Total DLP (mGy-cm): 168.89 FINDINGS: Probable ulcer involving the 4th toe. There are foci of gas within the soft tissues of the 4th toe suspicious for necrotizing fasciitis. There is an erosion involving the distal and lateral aspect of the proximal phalanx of the 4th toe likely reflecting osteomyelitis. There are foci of gas immediately adjacent to the middle phalanx of the 4th toe; however, no definite osseous erosion is seen to confirm osteomyelitis. Consider MRI to further assess if clinically warranted. There is subcutaneous edema involving the foot and ankle suspicious for cellulitis. Mild scattered degenerative changes are noted. No acute fracture is seen. Posterior calcaneal spur. CT/CT foot RT w con [id number] IMPRESSION: 1. Probable ulcer involving the 4th toe. 2. Foci of gas within the soft tissues of the 4th toe suspicious for necrotizing fasciitis. 3. Osteomyelitis involving the proximal phalanx of the 4th toe. 4. Foci of gas immediately adjacent to the middle phalanx of the 4th toe; however, no definite osseous erosion is seen to confirm osteomyelitis. Consider MRI to further assess if clinically warranted. 5. Subcutaneous edema involving the foot and ankle suspicious for cellulitis. Radiation Dose CTDIVOL = (mGy): DLP = 168.89 (mGy-cm)
[2021-05-06 14:33] LABS: Magnesium 2.1 mg/dL (1.7-2.3)
[2021-05-06] MEDS: iodixanol 320 mg/mL 100mL Btl IV (14:42)
[2021-05-06 14:47] LABS: Glucose Point of Care 50 mg/dL (70-110)
[2021-05-06] MEDS: potassium chloride ER 20 mEq Tablet 40 MEQ PO (15:11)
[2021-05-06] MEDS: sodium chloride 0.9% 500 ML 250 ML IV (15:12)
--- NOTE | 2021-05-06 15:27 | P.CONIM_ITS ---
Providers/Reason For Consult Consulting Physician/Specialty*: Irvin Blanco MD Reason for Consult*: Diabetic foot infection Requesting Physician: HECTOR Brice Primary Care Provider: Chon Bradshaw DO History of Present Illness History of Present Illness Chief Complaint: My right foot hurt History of present illness: Mr.Gregory Roland is a 70 year old male obese with a current BMI of 36.6 and weighs 255 pounds. Associated medical comorbidities in the form of diabetes mellitus type 2 on insulin. History of coronary artery disease, hypertension and on chronic anticoagulation in the form of Xarelto. Patient reports that he has been having worsening right foot pain associated with low-grade temperature and swelling, subsequently presented to the emergency department for further work-up where he undergone lab work that showed leukocytosis of 19.8, hemoglobin of 14.3 and platelet of 211. Neutrophil count 16.28, potassium of 3 and creatinine of 1.4, lactic acid of 1.8 X-ray right foot shows 1. Soft tissue swelling with subcutaneous emphysema in the 4th toe consistent with infection. 2. No bony abnormality. CT scan right foot shows 1. Probable ulcer involving the 4th toe. 2. Foci of gas within the soft tissues of the 4th toe suspicious for necrotizing fasciitis. 3. Osteomyelitis involving the proximal phalanx of the 4th toe. 4. Foci of gas immediately adjacent to the middle phalanx of the 4th toe; however, no definite osseous erosion is seen to confirm osteomyelitis. Consider MRI to further assess if clinically warranted. 5. Subcutaneous edema involving the foot and ankle suspicious for cellulitis. General surgery was consulted for further evaluation of the patient, patient was seen and evaluated in room 4 in the ER. Patient reports that he has been seeing a housekeeper manager as his right fifth toe nail has been rubbing frequently and irrita ting his right fourth toe. Patient reports that he had breakfast today that was his last meal. As the redness swelling associated with the pain got worse he came to the hospital for further care. Patient already received a dose of vancomycin and Zosyn in the ER. Review of Systems General: Reports: 10 or more systems reviewed and unremarkable except in HPI and below Meds/Allergies Home Medications and Allergies Home Medications Medication Instructions Recorded Confirmed Last Taken Type duloxetine 60 mg capsule,delayed 60 mg PO DAILY 02/22/20 05/06/21 07/03/20 21:00 History release tamsulosin 0.4 mg capsule 0.8 mg PO BEDTIME 02/22/20 05/06/21 05/05/21 History carvedilol 25 mg tablet 25 mg PO BID #180 tab 01/23/21 05/06/21 05/06/21 09:00 Rx ascorbic acid (vitamin C) [Vitamin 1,000 mg PO QAM 05/06/21 05/06/21 05/06/21 History C] empagliflozin [Jardiance] 25 mg PO QAM 05/06/21 05/06/21 05/06/21 History furosemide See Rx Instructions .ROUTE .COMPLEX 05/06/21 05/06/21 Unknown History insulin aspart U-100 [Novolog 25 - 30 unit SUBCUT TID 05/06/21 05/06/21 05/06/21 09:00 History PenFill U-100 Insulin] 25 units insulin degludec [Tresiba 85 - 90 unit SUBCUT BEDTIME 05/06/21 05/06/21 05/05/21 History FlexTouch U-200] 92 units isosorbide mononitrate 30 mg PO QAM 05/06/21 05/06/21 05/06/21 History losartan 100 mg PO QAM 05/06/21 05/06/21 05/06/21 History multivitamin 1 tab PO DAILY 05/06/21 05/06/21 Unknown History potassium chloride 20 meq PO QAM 05/06/21 05/06/21 05/06/21 History rivaroxaban [Xarelto] 20 mg PO QPM 05/06/21 05/06/21 05/05/21 History spironolactone 25 mg PO QAM 05/06/21 05/06/21 05/06/21 History Allergies Allergy/AdvReac Type Severity Reaction Status Date / Time No Known Allergies Allergy Verified 05/06/21 16:06 Current Medications Current Medications Generic Name Dose Route Start Last Admin Trade Name Freq PRN Reason Stop Dose Admin Sodium Chloride 500 mls @ 250 mls/hr 05/06/21 14:15 05/06/21 15:12 Sodium Chloride 0.9% IV 250 mls/hr .Q2H JYOTI Administration PFSH Acute PFSH: Medical History (Updated 05/06/21 @ 16:07 by Irvin Blanco MD) Anticoagulation adequate with anticoagulant therapy Xarelto Atrial fibrillation Paroxysmal Benign prostatic hyperplasia Diabetes Dyslipidemia History of nonmelanoma skin cancer HTN (hypertension) Obesity TIA (transient ischemic attack) Varicose vein of leg Surgical History S/P AVR (aortic valve replacement) Bioprosthetic, bovine S/P cataract extraction S/P cholecystectomy Family History Father Diabetes Hypertension Grandfather Diabetes PATERNAL Hypertension PATERNAL Social History Marital status: / service: No Current occupational status: retired Vitals/I&O/Wt Last Vital Signs Temp 98.2 F 05/06/21 11:06 Pulse 81 05/06/21 15:00 Resp 18 05/06/21 15:00 BP 141/53 05/06/21 15:00 Pulse Ox 93 05/06/21 15:00 Weight last 48 hrs Weight 255 lb Physical Exam Narrative: EXAM NARRATIVE: Patient is conscious alert oriented X3 BMI 37 Head and neck examination PERRLA no masses no cervical lymphadenopathy no jaundice Cardiac examination audible S1-S2 no murmurs no gallops no arrhythmias Chest is clear bilateral,abscence of Rhonchi or wheezes,no surgical emphysema Abdomen nontender nondistended soft no organomegaly guarding or rigidity/no signs of peritonitis Obese Right lower extremity swelling with dorsal edema of the right foot and cellulitic changes, otherwise the limb shows to be well perfused, pulsations can be palpable with difficulty due to edema, capillary refill less than 2 seconds. Gangrenous skin of the right fourth toe A&P Assessment and plan (1) Osteomyelitis of right foot: After thorough history physical examination and reviewing the chart and images with my personal interpretation of the x-rays and the CT scan of the right foot, I did addictions counselor assistant the patient for amputation of the right fourth toe, understanding the potential risks, benefits alternatives and indications. Also I did discuss with the patient the potential need for future surgeries and amputee and requiring further surgical debridement and long-term wound care. Recommend to obtain arterial duplex studies as well as venous duplex studies also to rule out DVT of the right lower extremity. Informed consent per chart We will follow on hemoglobin A1c Diabetes management per hospitalist service Status: Acute Consult Attestations Medical Necessity Statement: Patient requiring inpatient hospitalization passing 2 midnights for perioperative care and management of diabetes mellitus Time Spent in Patient Care: (>than 50% of time spent in counselling and/or direct pt care on unit) . Coding Level of Care Code Acute Die Cast Die Maker for Era Fwd Diagnoses Osteomyelitis of right foot M86.9
[2021-05-06] MEDS: dextrose 50% syringe 50 mL 25 ML IVP ×2 (15:32→16:20)
[2021-05-06 15:33] LABS: Glucose Point of Care 54 mg/dL (70-110)
--- NOTE | 2021-05-06 16:10 | USCV_ITS ---
Surendra Roland Age: 70 Gender: M : 1950 Exam Date: 05/06/2021 16:41 Ordering Phys: Irvin Blanco MD Technologist: Exam Location: [facility] – [place] Indication: RT LEG SWELLING PROCEDURES: Venous duplex imaging was performed in only the right lower extremity. The following venous structures were evaluated: common femoral vein, profunda vein, proximal portion of the greater saphenous vein, superficial femoral vein, and the popliteal vein. In addition, the posterior tibial and peroneal trunk were evaluated. FINDINGS: Normal 2-D Doppler and augmentation and compressibility throughout the lower extremity venous structures. Additional imaging through the proximal calf veins also reveals no thrombus. Limited evaluation of the greater saphenous vein is patent with no thrombus. CONCLUSIONS No DVT right lower extremity. Dr. Vania Gupta DO (Electronically Signed) Final Date: 09 May 2021 14:45 S
--- NOTE | 2021-05-06 16:28 | P.HP_ITS ---
Providers/Chief Complaint Primary Care Provider: Chon Bradshaw DO Chief Complaint: R FOOT/TOE PAIN History of Present Illness Surendra Roland is a 70 year old male with past medical history of diabetes mellitus, dyslipidemia, hypertension, obesity, TIA, status post aortic valve replacement which is bioprosthetic, atrial fibrillation on anticoagulation with Xarelto presented to ER for right foot pain more specifically in right toe for last 1 week getting worse for last 24 hrs. He states the toe has been getting eventually more and more black over last 2 yrs but gotten worse over last 1 week. Denies any fever or chills, tingling sensation in feet, SOB at exertion or at rest more than usual, CP, N/V, diarrhea, headache. Checks blood sugar twice daily, with FBS mostly around 100 and BS at bedtime around 200. He has not seen numbers less than 100. In ER he was found to have hypoglycemia with BS in 41 on CMP though he was asymptomatic. He recieved 2 doses of D50 25 cc with BS coming upto 60.Tmax 102 F, has remained hemodynamically stable. Review of Systems General: Reports: 10 or more systems reviewed and unremarkable except in HPI and below Const: Denies: fever(s), chills, body aches, change in appetite, change in weight, malaise, night sweats, diaphoresis, change in sleep pattern, daytime sleepiness or snoring Eyes: Denies: change in vision, blurry vision, photophobia, eye discomfort or eye discharge ENMT: Denies: throat pain, enlarged tonsils, hoarseness, mouth pain, oral sores, dry mouth, tinnitus, nasal congestion or post nasal drip Card: Denies: chest pain, palpitations, irregular heart rhythm, edema, swelling of feet/ankles, lightheadedness, syncope, pre-syncope, dyspnea on exertion, orthopnea, leg pain with exertion or acrocyanosis Resp: Denies: dyspnea, productive cough, non-productive cough, wheezing, stridor, pain on inspiration, change in phlegm color, hemoptysis or chest congestion GI: Denies: abdominal pain, nausea, vomiting, hematemesis, coffee ground emesis, dysphagia, heartburn, diarrhea, constipation, bloating, GI cramping, change in bowel habits, pain on defecation, hematochezia or melena : Denies: flank pain, difficulty urinating, dysuria, urinary frequency, urinary urgency, urinary hesitancy, urinary dribbling, difficulty starting urination, change in urine stream, nocturia or hematuria Musc: Denies: neck pain, back pain, extremity pain, joint pain, joint swelling, joint redness, joint stiffness or limited range of motion Neuro: Denies: headache(s), numbness in extremities, weakness in extremities, sensory changes, lack of coordination, difficulty walking, frequent falls, di zziness, vertigo, confusion, Slurred speech present, difficulty communicating thoughts or seizure-like activity Psych: Denies: anxiety, depression, mood swings, panic attacks, hopelessness or irritability Endo: Denies: polyuria, polydipsia, tired all the time, cold intolerance, excessive sweating, flushing or heat intolerance Lit/Lymph: Denies: easy bruising or easy bleeding All/Imm: Denies: tongue swelling, facial swelling or acute wheezing Medications/Allergies Home Medications Medication Instructions Recorded Confirmed Last Taken Type duloxetine 60 mg capsule,delayed 60 mg PO DAILY 02/22/20 05/06/21 07/03/20 21:00 History release tamsulosin 0.4 mg capsule 0.8 mg PO BEDTIME 02/22/20 05/06/21 05/05/21 History carvedilol 25 mg tablet 25 mg PO BID #180 tab 01/23/21 05/06/21 05/06/21 09:00 R x ascorbic acid (vitamin C) [Vitamin 1,000 mg PO QAM 05/06/21 05/06/21 05/06/21 History C] empagliflozin [Jardiance] 25 mg PO QAM 05/06/21 05/06/21 05/06/21 History furosemide See Rx Instructions .ROUTE .COMPLEX 05/06/21 05/06/21 Unknown History insulin aspart U-100 [Novolog 25 - 30 unit SUBCUT TID 05/06/21 05/06/21 05/06/21 09:00 History PenFill U-100 Insulin] 25 units insulin degludec [Tresiba 85 - 90 unit SUBCUT BEDTIME 05/06/21 05/06/21 05/05/21 History FlexTouch U-200] 92 units isosorbide mononitrate 30 mg PO QAM 05/06/21 05/06/2121 History losartan 100 mg PO QAM 05/06/21 05/06/21 05/06/21 History multivitamin 1 tab PO DAILY 05/06/21 05/06/21 Unknown History potassium chloride 20 meq PO QAM 05/06/21 05/06/21 05/06/21 History rivaroxaban [Xarelto] 20 mg PO QPM 05/06/21 05/06/21 05/05/21 History spironolactone 25 mg PO QAM 05/06/21 05/06/21 05/06/21 History Allergies Allergy/AdvReac Type Severity Reaction Status Date / Time No Known Allergies Allergy Verified 05/06/21 16:06 PFSH Acute PFSH: Medical History (Updated 05/06/21 @ 16:32 by Carlton Simpson MD) Acute hypokalemia Anticoagulation adequate with anticoagulant therapy Xarelto Atrial fibrillation Paroxysmal Benign prostatic hyperplasia Diabetes Dyslipidemia History of nonmelanoma skin cancer HTN (hypertension) Obesity TIA (transient ischemic attack) Varicose vein of leg Surgical History S/P AVR (aortic valve replacement) Bioprosthetic, bovine S/P cataract extraction S/P cholecystectomy Family History Father Diabetes Hypertension Grandfather Diabetes PATERNAL Hypertension PATERNAL Social History Marital status: / service: No Current occupational status: retired Vitals/I&O/Wt Last Vital Signs Temp 98.2 F 05/06/21 11:06 Pulse 81 05/06/21 15:00 Resp 18 05/06/21 15:00 BP 141/53 05/06/21 15:00 Pulse Ox 93 05/06/21 15:00 Weight last 48 hrs Weight 115.666 kg Physical Exam Narrative: EXAM NARRATIVE: General: No acute distress, AO x3, pleasant, jovial HEENT: PERRLA, pupils bilaterally equal and reactive Chest: Normal vesicular breath sounds, no added sounds, equal good air entry bilaterally CVS: S1-S2 regular, no murmurs, no tachycardia, no gallops, no rubs Abdomen: Soft, nontender, no organomegaly, bowel sounds present Neuro: No focal deficits, no facial deformity, AO x3, power 5/5 in all limbs Ext: Right lower extremity swelling with dorsal edema of the right foot and cellulitic changes, otherwise the limb shows to be well perfused, pulsations can be palpable with difficulty due to edema, capillary refill less than 2 seconds. Gangrenous skin of the right fourth toe Data : 05/06/21 12:05 05/06/21 12:05 Other Labs: Laboratory Results WBC 19.8 10^3/uL (4.0-10.0) H 05/06/21 12:05 RBC 4.84 10^6/uL (4.1-5.3) 05/06/21 12:05 Hgb 14.3 g/dL (11.7-16.6) 05/06/21 12:05 Hct 42.4 % (42.0-52.0) 05/06/21 12:05 MCV 87.6 fL (80-94) 05/06/21 12:05 MCH 29.5 pg (28.0-34.0) 05/06/21 12:05 MCHC 33.7 g/dL (30.0-36.0) 05/06/21 12:05 RDW 13.7 % (12.1-15.1) 05/06/21 12:05 Plt Count 211 10^3/cmm (130-400) 05/06/21 12:05 MPV 10.3 fL (7.4-10.4) 05/06/21 12:05 Neut % (Auto) 82.2 % 05/06/21 12:05 Lymph % (Auto) 5.6 % 05/06/21 12:05 [place] % (Auto) 10.3 % 05/06/21 12:05 Eos % (Auto) 1.0 % 05/06/21 12:05 Baso % (Auto) 0.4 % 05/06/21 12:05 Neut # (Auto) 16.28 10^3/uL (1.8-7.7) H 05/06/21 12:05 Lymph # (Auto) 1.1 10^3/uL (0.8-4.8) 05/06/21 12:05 [place] # (Auto) 2.0 10^3/uL (0.2-0.9) H 05/06/21 12:05 Eos # (Auto) 0.2 10^3/uL (0.0-0.8) 05/06/21 12:05 Baso # (Auto) 0.1 10^3/uL (0.0-0.1) 05/06/21 12:05 Nucleated RBC % (auto) 0 % 05/06/21 12:05 Nucleated RBCs # 0.0 /100WBC 05/06/21 12:05 ESR 48 mm/hr (0-10) H 05/06/21 12:05 Sodium 138 mmol/L (136-145) 05/06/21 12:05 Potassium 3.0 mmol/L (3.5-5.1) L 05/06/21 12:05 Chloride 100 mmol/L (98-107) 05/06/21 12:05 Carbon Dioxide 26 mmol/L (22-29) 05/06/21 12:05 Anion Gap 15.0 (5-19) 05/06/21 12:05 BUN 17 mg/dL (8-23) 05/06/21 12:05 Creatinine 1.4 mg/dL (0.7-1.2) H 05/06/21 12:05 GFR Calculation Not Reportable 05/06/21 12:05 Glucose 41 mg/dL (65-115) L 05/06/21 12:05 POC Glucose 102 mg/dL (70-110) 05/06/21 17:51 Calculated Osmolality 284 mOsm/kg (285-295) L 05/06/21 12:05 Lactic Acid 1.8 mmol/L (0.5-2.2) 05/06/21 12:05 Calcium 8.3 mg/dL (8.5-10.5) L 05/06/21 12:05 Magnesium 2.1 mg/dL (1.7-2.3) 05/06/21 12:05 Total Bilirubin 1.7 mg/dL (0.15-1.2) H 05/06/21 12:05 AST 23 U/L (0-40) 05/06/21 12:05 ALT 16 U/L (0-41) 05/06/21 12:05 Alkaline Phosphatase 84 IU/L (40-130) 05/06/21 12:05 C-Reactive Protein 147.8 mg/L (0.0-4.9) H 05/06/21 12:05 NT-Pro-B Natriuret Pep 1703 pg/mL (0-125) H 05/06/21 12:05 Total Protein 7.0 g/dL (6.6-8.7) 05/06/21 12:05 Albumin 3.7 g/dL (3.5-5.2) 05/06/21 12:05 Globulin 3.3 g/dL (1.3-4.6) 05/06/21 12:05 Procalcitonin 0.30 ng/mL (0-0.5) 05/06/21 12:05 TSH 5.54 uIU/mL (0.27-4.20) H 05/06/21 12:05 Impressions Foot X-Ray 05/06/21 11:58 IMPRESSION: 1. Soft tissue swelling with subcutaneous emphysema in the 4th toe consistent with infection. 2. No bony abnormality. Foot CT 05/06/21 14:07 IMPRESSION: 1. Probable ulcer involving the 4th toe. 2. Foci of gas within the soft tissues of the 4th toe suspicious for necrotizing fasciitis. 3. Osteomyelitis involving the proximal phalanx of the 4th toe. 4. Foci of gas immediately adjacent to the middle phalanx of the 4th toe; however, no definite osseous erosion is seen to confirm osteomyelitis. Consider MRI to further assess if clinically warranted. 5. Subcutaneous edema involving the foot and ankle suspicious for cellulitis. Radiation Dose CTDIVOL = (mGy): DLP = 168.89 (mGy-cm) ADDENDUM: 05/06/21 1516 Findings discussed with HECTOR Shen at 05/06/2021 3:14 PM CDT. Radiation Dose CTDIVOL = (mGy): DLP = 168.89 (mGy-cm) A&P Assessment and plan (1) Osteomyelitis of right foot: Status: Acute (2) Osteomyelitis of toe of left foot: Status: Acute (3) EZEQUIEL (acute kidney injury): Status: Acute (4) Congestive heart failure: Status: Acute Qualifiers: Heart failure chronicity: acute Heart failure type: diastolic Qualified Code(s): I50.31 - Acute diastolic (congestive) heart failure (5) Diabetes: Status: Chronic (6) Hypoglycemia: Status: Acute (7) HTN (hypertension): Status: Chronic (8) PVD (peripheral vascular disease): Status: Acute (9) S/P AVR (aortic valve replacement): Status: Chronic (10) Chronic anticoagulation: Status: Chronic Additional A&P Information Osteomyelitis and cellulitis: Check ESR, CRP Check lower limb doppler , arterial doppler for ABP. Surgery consulter from ER. Plan for amputation. Check prcal, Bcx, UA, UCx, MRSA swab. Start on Vancomycina nd Zosyn. Will de- escalate as per Cx results. EZEQUIEL: Baseline Creat normal. Most likely 2/2 infection vs dehydration. Medrec done for nephrotoxic drugs. IVF as below. Monitor BMP daily. Type 2 DM/Hypoglycemia: Persistent Hypoglycemia 2/2 Sepsis vs EZEQUIEL. ISS at low dose protocol. Start on D5NS@ 50 cc/hr. Congestive heart failure: Echocardiogram done in June 2020 showed an EF 55%, grade 2 diastolic dysfunction, normal position normal functioning aortic bioprosthetic valve with a mean gradient of 10 mmHg across the valve, severe mitral annular calcification without mitral stenosis. Strict I/O Daily weight. Hold diuretic for now as pt is dehydrated and has EZEQUIEL. HTN: Goal less than 149/90 mmhg. Hold losartan and lasix for now. C/w Imdur and coreg. H/o bioprosthetic AVR H/o proxysmal Afib C/w other chronic medication. Will chane meds as per clinical picture. FC Carb cardiac diet Xarelto will help with DVT PPx. Attestations Medical Necessity Statement*: Admission for more than 2 midnights for management of osteomyelitis requiring amputation, prolonged antibiotics, acute kidney injury requiring IV hydration in setting of recurrent hypoglycemia Time Spent in Patient Care: Greater than 35 minutes (>than 50% of time spent in counselling and/or direct pt care on unit) . Coding Level of Care Code Acute Orthodontist Vice President for [facility] Fwd Diagnoses Osteomyelitis of right foot M86.9 Osteomyelitis of toe of left foot M86.9 EZEQUIEL (acute kidney injury) N17.9 Congestive heart failure I50.31 Heart failure chronicity: acute Heart failure type: diastolic Diabetes E11.9 Hypoglycemia E16.2 HTN (hypertension) I10 PVD (peripheral vascular disease) I73.9 S/P AVR (aortic valve replacement) Z95.2 Chronic anticoagulation Z79.01
[2021-05-06 16:29] LABS: Glucose Point of Care 72 mg/dL (70-110)
[2021-05-06] MEDS: acetaminophen 1,000 MG/100 ML PIGGYBACK 400 MG IV (16:38)
[2021-05-06 17:15] LABS: NT Pro B Type Natriuretic Pept 1703 pg/mL (0-125)
[2021-05-06 17:17] LABS: Thyroid Stimulating Hormone 5.54 uIU/mL (0.27-4.20)
[2021-05-06 17:20] LABS: Erythrocyte Sedimentation Rate 48 mm/hr (0-10)
[2021-05-06 18:00] LABS: Glucose Point of Care 102 mg/dL (70-110)
[2021-05-06 18:00] LABS: Glucose Point of Care 89 mg/dL (70-110)
--- NOTE | 2021-05-06 18:06 | ECG_ITS ---
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 : 1950 Requested By: Enoc Segal Order Number: [id number] Reading MD: GUS SALVADOR Measurements Intervals [place] Rate: 74 P: 67 MO: 233 QRS: 8 QRSD: 110 T: 134 QT: 422 QTc: 471 Interpretive Statements SINUS RHYTHM WITH FIRST DEGREE AV BLOCK ST DEVIATION AND MODERATE T-WAVE ABNORMALITY, CONSIDER LATERAL ISCHEMIA [-0.1+ mV T WAVE IN I/aVL/V5/V6] Compared to ECG 07/05/2020 00:30:51 No significant changes Electronically Signed On 05-07-2021 20:14:06 CDT by GUS SALVADOR [email or web address] of [email or web address] medical [id number]
--- NOTE | 2021-05-06 18:11 | P.ANESASSM_ITS ---
Pre-Anesthetic Assessment Pre-Anesthetic Assessment: Height/Weight: Height 1.78 m Weight 115.666 kg Temp Pulse Resp BP Pulse Ox 100.5 F H 94 18 142/54 97 05/06/21 17:03 05/06/21 17:03 05/06/21 17:03 05/06/21 17:03 05/06/21 17:03 Preop Diagnosis: Osteomyelitis of right foot Proposed Procedure: Operation Date: 05/06/21 16:50 Proposed Procedures p Amputation right fourth toe(Right) - Irvin Blanco MD Was Beta Nell taken within 24 hours: Yes Was Clonidine taken within 24 hours: N/A Social: Social History: No alcohol and No tobacco Exam: Pre-Anes Outpt Exam: alert, oriented x 3, clear to auscultation bilaterally and regular rate & rhythm Airway: Submandibular: WNL Cervical ROM: WNL MP: 2 Dentition: False CV/HEM: CV/HEM: Afib, CAD, CHF (EF 55%), HTN, MD and PVD Comments: AVR : : Chronic renal Insufficiency Metabolic: Metabolic: DM, Hyperlipidemia and Morbid obesity Anesthetic Plan: ASA status: 3E Anesthesia: MAC Risk of > 500 ml blood loss (7ml/kg in children): No PFSH Anesthesia PFSH: Medical History (Updated 05/06/21 @ 16:32 by Carlton Simpson MD) Acute hypokalemia Anticoagulation adequate with anticoagulant therapy Xarelto Atrial fibrillation Paroxysmal Benign prostatic hyperplasia Diabetes Dyslipidemia History of nonmelanoma skin cancer HTN (hypertension) Obesity TIA (transient ischemic attack) Varicose vein of leg Surgical History S/P AVR (aortic valve replacement) Bioprosthetic, bovine S/P cataract extraction S/P cholecystectomy Family History Father Diabetes Hypertension Grandfather Diabetes PATERNAL Hypertension PATERNAL Social History Marital status: / service: No Current occupational status: retired Data Anesthesia CBC & Chem 7: 05/06/21 12:05 05/06/21 12:05 Other Labs: Laboratory Results - last 48 hr 05/06/21 05/06/21 05/06/21 12:05 12:05 12:05 WBC 19.8 H RBC 4.84 Hgb 14.3 Hct 42.4 MCV 87.6 MCH 29.5 MCHC 33.7 RDW 13.7 Plt Count 211 MPV 10.3 Neut % (Auto) 82.2 Lymph % (Auto) 5.6 [place] % (Auto) 10.3 Eos % (Auto) 1.0 Baso % (Auto) 0.4 Neut # (Auto) 16.28 H Lymph # (Auto) 1.1 [place] # (Auto) 2.0 H Eos # (Auto) 0.2 Baso # (Auto) 0.1 Nucleated RBC % (auto) 0 Nucleated RBCs # 0.0 ESR 48 H Sodium 138 Potassium 3.0 L Chloride 100 Carbon Dioxide 26 Anion Gap 15.0 BUN 17 Creatinine 1.4 H GFR Calculation Not Reportable Glucose 41 L POC Glucose Calculated Osmolality 284 L Lactic Acid Calcium 8.3 L Magnesium Total Bilirubin 1.7 H AST 23 ALT 16 Alkaline Phosphatase 84 C-Reactive Protein 147.8 H NT-Pro-B Natriuret Pep Total Protein 7.0 Albumin 3.7 Globulin 3.3 Procalcitonin TSH 05/06/21 05/06/21 05/06/21 12:05 12:05 12:05 WBC RBC Hgb Hct MCV MCH MCHC RDW Plt Count MPV Neut % (Auto) Lymph % (Auto) [place] % (Auto) Eos % (Auto) Baso % (Auto) Neut # (Auto) Lymph # (Auto) [place] # (Auto) Eos # (Auto) Baso # (Auto) Nucleated RBC % (auto) Nucleated RBCs # ESR Sodium Potassium Chloride Carbon Dioxide Anion Gap BUN Creatinine GFR Calculation Glucose POC Glucose Calculated Osmolality Lactic Acid 1.8 Calcium Magnesium 2.1 Total Bilirubin AST ALT Alkaline Phosphatase C-Reactive Protein NT-Pro-B Natriuret Pep 1703 H Total Protein Albumin Globulin Procalcitonin 0.30 TSH 05/06/21 05/06/21 05/06/21 12:05 14:45 15:30 WBC RBC Hgb Hct MCV MCH MCHC RDW Plt Count MPV Neut % (Auto) Lymph % (Auto) [place] % (Auto) Eos % (Auto) Baso % (Auto) Neut # (Auto) Lymph # (Auto) [place] # (Auto) Eos # (Auto) Baso # (Auto) Nucleated RBC % (auto) Nucleated RBCs # ESR Sodium Potassium Chloride Carbon Dioxide Anion Gap BUN Creatinine GFR Calculation Glucose POC Glucose 50 L 54 L Calculated Osmolality Lactic Acid Calcium Magnesium Total Bilirubin AST ALT Alkaline Phosphatase C-Reactive Protein NT-Pro-B Natriuret Pep Total Protein Albumin Globulin Procalcitonin TSH 5.54 H 05/06/21 05/06/21 05/06/21 16:18 17:13 17:51 WBC RBC Hgb Hct MCV MCH MCHC RDW Plt Count MPV Neut % (Auto) Lymph % (Auto) [place] % (Auto) Eos % (Auto) Baso % (Auto) Neut # (Auto) Lymph # (Auto) [place] # (Auto) Eos # (Auto) Baso # (Auto) Nucleated RBC % (auto) Nucleated RBCs # ESR Sodium Potassium Chloride Carbon Dioxide Anion Gap BUN Creatinine GFR Calculation Glucose POC Glucose 72 89 102 Calculated Osmolality Lactic Acid Calcium Magnesium Total Bilirubin AST ALT Alkaline Phosphatase C-Reactive Protein NT-Pro-B Natriuret Pep Total Protein Albumin Globulin Procalcitonin TSH Micro: Microbiology 05/06/21 12:30 Blood Culture - Preliminary Blood SPECIMEN COLLECTED 05/06/21 12:20 Blood Culture - Preliminary Blood SPECIMEN COLLECTED Cardiac Studies: No Data to Display
--- NOTE | 2021-05-06 18:13 | PM.OP ---
Operative Report Date of procedure: May 06, 2021 Pre-op Diagnosis: Osteomyelitis of right foot Post-op diagnosis: same Post-op Diagnosis: Ulcer located on the lateral aspect of the mid right fourth toe about centimeter in diameter all the way to the fat layer Procedure Done: Amputation of right fourth toe till the level of the distal fourth metatarsal bone Implants: Pieces of Surgicel Specimens removed/disposition: Tissues for cultures and sensitivities including soft tissues and bone fragments Distal head of fourth metatarsal bone and right fourth toe for permanent pathology Surgeon: Irvin Blanco Purchasing Contracting Clerk: Surgical lennie Schmidt Circulating nurse Carrol VARGHESE Anesthesia: MAC (Johny Warren and Dr. Fairbanks) Estimated blood loss (mL): 10 IV fluids (mL): 500 Complications: Please refer to anesthesia note for details Disposition: floor Brief History: Diabetic foot infection with osteomyelitis of the fourth toe Procedure: Patient after being identified in the holding area and his right lower extremity was marked by me, and informed consent per chart ,patient was then taken back to the OR placed in supine position, patient received MAC by anesthesia. Time-out was done verifying the patient's name/date of /planned procedure and destination after the procedure, all were in agreement.preoperative antibiotics administered per protocol, and beta davi protocol was confirmed. prep and drape of the right lower extremity including the right foot was done under the usual sterile technique. Intraoperative findings; Ulceration of the lateral aspect of the right fourth toe about centimeter in diameter all the way to the fatty layer. Dusky skin at the base and the whole skin of the right fourth toe consistent with gangrenous changes No evidence of crepitus Good blood supply at the edges of the wound after amputation and surrounding tissue A mouth fish transverse incision,the skin incision was created at the base of the right fourth toe, dissection was carried down all the way to the distal part of the healthier right fourth metatarsal bone, soft tissues were retracted proximally using a freerer, to expose the distal part of the right fourth metatarsal bone, were an electric bone saw was applied to amputate the toe, the specimen was then passed to the circulating nurse for permanent pathology including the right fourth toe and the head of the right fourth metatarsal bone, an electric bone rasp was then used to Sooth the edges of the amputated bone together with a Rongeur, hemostasis was achieved followed by thorough irrigation, 3-0 PDS were used to cover the bone with the surrounding soft tissues, there was some oozing so I elected to place 2 pieces of Surgicel and mass skin closure using #1 Prolene in a horizontal mattress suture was achieved. During the dissection infected soft tissues were appreciated and underlying bone of the proximal phalanx were sent for cultures and sensitivities. After skin closure triple antibiotic ointment was placed followed by 4 x 4's, ABDs, Kerlix and Benoit wrap Count was completed at the end of the procedure including instruments and sponges and needles I was present for the whole entire procedure Patient was then was taken to the recovery in stable condition.
--- NOTE | 2021-05-06 18:45 | ANE.PACU2 ---
Inpatient post-anesthesia follow up: Airway intact: Yes Vital signs: Temperature 100.5 F Pulse Rate [Left R adial] 75 Pulse Rate 94 Respiratory Rate 18 Blood Pressure [Le ft Arm] 126/65 Blood Pressure 142/54 Pulse Oximetry 97 Oxygen Delivery Me thod Room Air Oxygen Flow Rate Fraction of Inspir ed Oxygen Hydration adequate: Yes Nausea and vomiting: No Pain level: 3 Mental status: Baseline Additional Comments: Had a bout of post op delirium.
--- NOTE | 2021-05-06 19:50 | SUR.PHASEI ---
[id number] Pt very combative coming out of anesthesia. Pt very diaphoretic and trying to pull everything out and off and trying to get out of bed. Attempted to get EKG, but would not lay back or be still enough to get a good reading. Edelmira Denton, and Dr Fairbanks helped to keep him in bed and helped me attempt to calm him down. Anesthesia finally wore off and pt was back to himself and did not remember everything that he had done. During the time of patient being combative, it was difficult to get vital signs on a regular schedule of q 5 min, but we were with the patient the whole time and no distress was noted.
[2021-05-06 20:47] LABS: Glucose Point of Care 75 mg/dL (70-110)
[2021-05-06] MEDS: HYDROcodone-acetaminophen 5-325 mg Tablet 1 TAB PO (21:40)
[2021-05-06] MEDS: dextrose 5%-sod chloride 0.9% 1,000 ML 75 ML IV (21:40)
[2021-05-06] MEDS: ferrous gluconate 324 mg Tablet PO (21:40)
[2021-05-06] MEDS: tamsulosin 0.4 mg Capsule 0.8 MG PO (21:45)
[2021-05-06 22:00] LABS: Magnesium 2.2 mg/dL (1.7-2.3); Phosphorus 2.1 mg/dL (2.5-4.5)
[2021-05-06] MEDS: famotidine 20 mg/2 mL INJ IVP (22:06)
[2021-05-06 23:15] LABS: Iron 20 ug/dL (59-158); Percent Saturation 7.7 % (20-50); Total Iron Binding Capacity 258 mcg/dl; Unsaturated Iron Binding 238 ug/dL (112-347)
[2021-05-07] VITALS (8 sets, daily range): BP systolic 109–171; BP diastolic 62–83; PULSE 64–92; RESP 14–18; TEMP 36.8–37.7; O2SAT 90–96
[2021-05-07 02:03] LABS: Free T4 Free Thyroxine 0.82 ng/dL (0.82-1.77); T3 Free 1.8 PG/ML (2.0-4.4)
[2021-05-07] MEDS: HYDROcodone-acetaminophen 5-325 mg Tablet 1 TAB PO ×3 (03:21→16:18)
[2021-05-07] MEDS: vancomycin 1,500 MG/300 ML PIGGYBACK 200 MG IV ×2 (03:21→19:21)
[2021-05-07 05:22] LABS: Basophils # 0.1 10^3/uL (0.0-0.1); Basophils % 0.4 %; Eosinophils # 0.3 10^3/uL (0.0-0.8); Eosinophils % 2.3 %; Hematocrit 38.2 % (42.0-52.0); Lymphocytes # 1.1 10^3/uL (0.8-4.8); Lymphocytes % 7.9 %; Mean Corpuscular HGB Conc 31.4 g/dL (30.0-36.0); Mean Corpuscular Hemoglobin 29.1 pg (28.0-34.0); Mean Corpuscular Volume 92.7 fL (80-94); Mean Platelet Volume 10.1 fL (7.4-10.4); Monocytes # 1.4 10^3/uL (0.2-0.9); Neutrophils % 78.9 %; Nucleated Red Blood Cells % 0 %; Platelet Count 177 10^3/cmm (130-400); Red Blood Count 4.12 10^6/uL (4.1-5.3); Red Cell Distribution Width 13.9 % (12.1-15.1); White Blood Count 13.7 10^3/uL (4.0-10.0)
[2021-05-07 05:53] LABS: Alanine Aminotransferase 17 U/L (0-41); Albumin Level 3.2 g/dL (3.5-5.2); Alkaline Phosphatase 80 IU/L (40-130); Aspartate Amino Transferase 22 U/L (0-40); Blood Urea Nitrogen 16 mg/dL (8-23); Calcium 7.6 mg/dL (8.5-10.5); Carbon Dioxide 25 mmol/L (22-29); Chloride 106 mmol/L (98-107); Globulin 2.7 g/dL (1.3-4.6); Glucose 164 mg/dL (65-115); Osmolality Calculated 295 mOsm/kg (285-295); Sodium 140 mmol/L (136-145); Total Bilirubin 1.1 mg/dL (0.15-1.2); Total Protein 5.9 g/dL (6.6-8.7)
[2021-05-07 05:59] LABS: Anion Gap 12.4 (5-19); Potassium 3.4 mmol/L (3.5-5.1)
[2021-05-07 06:17] LABS: Estmated Average Glucose 151; Hemoglobin A1C 6.9 % (4.0-6.0)
[2021-05-07] MEDS: piperacillin-tazobactam 3.375 GM in sodium chloride 0.9% (plus) 100 ML IV ×3 (06:20→21:01)
[2021-05-07 06:34] LABS: Glucose Point of Care 152 mg/dL (70-110)
[2021-05-07] MEDS: ascorbic acid 500 mg Tablet 1000 MG PO (06:35)
[2021-05-07] MEDS: potassium chloride ER 20 mEq Tablet PO (06:36)
[2021-05-07] MEDS: isosorbide mononitrate ER 30 mg Tablet PO (06:37)
[2021-05-07] MEDS: ferrous gluconate 324 mg Tablet PO ×2 (09:47→17:52)
[2021-05-07] MEDS: duloxetine 60 mg Capsule PO (09:48)
[2021-05-07] MEDS: carvedilol 25 mg Tablet PO ×3 (09:48→17:52)
[2021-05-07] MEDS: famotidine 20 mg/2 mL INJ IVP ×2 (09:54→21:01)
[2021-05-07 11:08] LABS: Glucose Point of Care 181 mg/dL (70-110)
[2021-05-07] MEDS: dextrose 5%-sod chloride 0.9% 1,000 ML 75 ML IV (11:42)
--- NOTE | 2021-05-07 13:40 | PM.PN ---
Subjective Subjective: Interval history: Patient overall feels better. Patient was seen and examined. Trending down and leukocytosis Medications: Reviewed: Yes Vitals/I&O/Wt Last Vital Signs Temp 98.9 F 05/07/21 12:00 Pulse 75 05/07/21 12:00 Resp 14 05/07/21 12:00 BP 109/82 05/07/21 12:00 Pulse Ox 94 05/07/21 12:00 05/06/21 05/07/21 05/07/21 22:59 06:59 14:59 Intake Total 02356.833 / 43153.833 1999 Output Total 310 / 310 500 / 810 500 / 500 Balance 9890.833 / 9940.833 -500 / 9440.833 1500 / 1500 Weight last 48 hrs Weight 273 lb 4.8 oz Weight 255 lb Physical Exam Narrative: EXAM NARRATIVE: Patient is conscious alert oriented X3 BMI 39 Head and neck examination PERRLA no masses no cervical lymphadenopathy no jaundice Right amputation stump incision site is clean dry and intact and less cellulitis, no evidence of discharge or surgical site infection. Data : 05/07/21 04:54 05/07/21 04:54 Micro: Microbiology 05/06/21 17:37 Gram Stain - Final Foot - #4 05/06/21 16:31 MRSA Culture - Final Nose 05/06/21 12:30 Blood Culture - Preliminary Blood SPECIMEN COLLECTED 05/06/21 12:20 Blood Culture - Preliminary Blood SPECIMEN COLLECTED A&P Assessment and plan (1) Osteomyelitis of toe of left foot: Patient is a status post right fourth toe amputation 05/06/2021. Daily dressing change in the form of triple antibiotic ointment small portion on the incision. Followed by 4 x 4 ABDs Kerlix and Benoit wrap. Medical management of diabetes per hospitalist service Nonweightbearing right forefoot Diabetes education Follow on physical therapy recommendations Assurance and education All questions have been answered and all concerns have been addressed to patient's satisfaction. Status: Resolved Attestations Medical Necessity Statement*: Per hospitalist service Time Spent in Patient Care: (>than 50% of time spent in counselling and/or direct pt care on unit). 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
--- NOTE | 2021-05-07 15:32 | P.PN_ITS ---
Subjective Medications: Reviewed: Yes Vitals/I&O/Wt Last Vital Signs Temp 98.9 F 05/07/21 12:00 Pulse 75 05/07/21 12:00 Resp 14 05/07/21 12:00 BP 109/82 05/07/21 12:00 Pulse Ox 94 05/07/21 12:00 05/07/21 05/07/21 05/07/21 06:59 14:59 22:59 Intake Total 2240 / 2240 Output Total 500 / 810 500 / 500 Balance -500 / 9440.833 1740 / 1740 Weight last 48 hrs Weight 123.967 kg Weight 115.666 kg Physical Exam Narrative: EXAM NARRATIVE: General: No acute distress, AO x3, pleasant, jovial HEENT: PERRLA, pupils bilaterally equal and reactive Chest: Normal vesicular breath sounds, no added sounds, equal good air entry bilaterally CVS: S1-S2 regular, no murmurs, no tachycardia, no gallops, no rubs Abdomen: Soft, nontender, no organomegaly, bowel sounds present Neuro: No focal deficits, no facial deformity, AO x3, power 5/5 in all limbs Ext: Right lower extremity swelling with dorsal edema of the right foot and cellulitic changes, otherwise the limb shows to be well perfused, pulsations can be palpable with difficulty due to edema, capillary refill less than 2 seconds. Gangrenous skin of the right fourth toe Data : 05/07/21 04:54 05/07/21 04:54 Micro: Microbiology 05/06/21 17:37 Gram Stain - Final Foot - #4 05/06/21 16:31 MRSA Culture - Final Nose 05/06/21 12:30 Blood Culture - Preliminary Blood SPECIMEN COLLECTED 05/06/21 12:20 Blood Culture - Preliminary Blood SPECIMEN COLLECTED A&P Assessment and plan (1) Osteomyelitis of right foot: Status: Acute (2) Osteomyelitis of toe of left foot: Status: Resolved (3) EZEQUIEL (acute kidney injury): Status: Acute (4) Congestive heart failure: Status: Acute Qualifiers: Heart failure chronicity: acute Heart failure type: diastolic Qual ified Code(s): I50.31 - Acute diastolic (congestive) heart failure (5) Diabetes: Status: Chronic (6) Hypoglycemia: Status: Acute (7) HTN (hypertension): Status: Chronic (8) PVD (peripheral vascular disease): Status: Acute (9) S/P AVR (aortic valve replacement): Status: Chronic (10) Chronic anticoagulation: Status: Chronic Additional A&P Information Osteomyelitis and cellulitis: Status post right fourth toe amputation on May 06. Postoperative day 1. MRSA negative. Continue with vancomycin and Zosyn. Will de-escalate antibiotics as per the culture results. Wound cultures from the OR sent results awaited. Dressing, nonweightbearing on the right foot, anticoagulation as per surgical t eam. Discussed with Dr. Blanco. Heparin 5000 every 12 hourly today. Start Xarelto from tomorrow evening. EZEQUIEL: Baseline Creat normal. Most likely 2/2 infection vs dehydration. Medrec done for nephrotoxic drugs. IVF as below. Monitor BMP daily. Type 2 DM/Hypoglycemia: Persistent Hypoglycemia 2/2 Sepsis vs EZEQUIEL. Sugars improving now. ISS at low dose protocol. Start on D5NS@ 50 cc/hr. Congestive heart failure: Echocardiogram done in June 2020 showed an EF 55%, grade 2 diastolic dysfunction, normal position normal functioning aortic bioprosthetic valve with a mean gradient of 10 mmHg across the valve, severe mitral annular calcification without mitral stenosis. Strict I/O Daily weight. Hold diuretic for now as pt is dehydrated and has EZEQUIEL. HTN: Goal less than 140/90 mmhg. Hold losartan and lasix for now. C/w Imdur and coreg. Atrial fibrillation: Rate controlled. Continue with home dose of Coreg. Hold off on anticoagulation given postoperative status. Can start Xarelto from tomorrow. Telemetry. H/o bioprosthetic AVR C/w other chronic medication. Will chane meds as per clinical picture. FC Carb cardiac diet Heparin 5000 every 12 hourly. Xarelto from the tomorrow. Attestations Medical Necessity Statement*: Patient requires further hospitalization for management of osteomyelitis, s/p toe amputation, persistent hypoglycemia. Time Spent in Patient Care: Greater than 35 minutes (>than 50% of time spent in counselling and/or direct pt care on unit) . 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
[2021-05-07] MEDS: heparin 5,000 unit/mL INJ 1 mL 5000 UNIT SUBCUT (16:18)
[2021-05-07 16:29] LABS: Glucose Point of Care 208 mg/dL (70-110)
[2021-05-07] MEDS: sodium chloride 0.45% 1,000 ML 75 ML IV (16:29)
[2021-05-07] MEDS: neomycin-poly-bacitracin oint 28 gm 1 APPLIC TOPICAL (17:50)
[2021-05-07 20:59] LABS: Glucose Point of Care 140 mg/dL (70-110)
[2021-05-07] MEDS: tamsulosin 0.4 mg Capsule 0.8 MG PO (21:01)
[2021-05-08] MEDS: heparin 5,000 unit/mL INJ 1 mL 5000 UNIT SUBCUT (03:42)
[2021-05-08] MEDS: HYDROcodone-acetaminophen 5-325 mg Tablet 1 TAB PO ×3 (03:42→17:12)
[2021-05-08 04:00] VITALS: BP 159/61; PULSE 88; RESP 18; TEMP 37.3; O2SAT 92
--- NOTE | 2021-05-08 04:46 | PC.NURSE ---
spilled his urinal for one and went in the toilet for the other
[2021-05-08 05:35] LABS: Basophils # 0.1 10^3/uL (0.0-0.1); Basophils % 0.4 %; Eosinophils # 0.2 10^3/uL (0.0-0.8); Eosinophils % 1.6 %; Hematocrit 37.2 % (42.0-52.0); Hemoglobin 12.1 g/dL (11.7-16.6); Lymphocytes # 0.9 10^3/uL (0.8-4.8); Lymphocytes % 6.6 %; Mean Corpuscular HGB Conc 32.5 g/dL (30.0-36.0); Mean Corpuscular Hemoglobin 29.7 pg (28.0-34.0); Mean Corpuscular Volume 91.4 fL (80-94); Monocytes # 1.1 10^3/uL (0.2-0.9); Monocytes % 7.9 %; Neutrophils # 11.26 10^3/uL (1.8-7.7); Nucleated Red Blood Cells % 0 %; Platelet Count 185 10^3/cmm (130-400); Red Blood Count 4.07 10^6/uL (4.1-5.3); Red Cell Distribution Width 13.5 % (12.1-15.1); White Blood Count 13.6 10^3/uL (4.0-10.0)
[2021-05-08] MEDS: isosorbide mononitrate ER 30 mg Tablet PO (05:52)
[2021-05-08] MEDS: ascorbic acid 500 mg Tablet 1000 MG PO (05:52)
[2021-05-08] MEDS: piperacillin-tazobactam 3.375 GM in sodium chloride 0.9% (plus) 100 ML IV ×3 (05:52→21:08)
[2021-05-08] MEDS: potassium chloride ER 20 mEq Tablet PO (05:53)
[2021-05-08 06:01] LABS: Alanine Aminotransferase 24 U/L (0-41); Albumin Level 3.1 g/dL (3.5-5.2); Alkaline Phosphatase 75 IU/L (40-130); Anion Gap 12.7 (5-19); Aspartate Amino Transferase 26 U/L (0-40); Blood Urea Nitrogen 17 mg/dL (8-23); Calcium 7.9 mg/dL (8.5-10.5); Carbon Dioxide 22 mmol/L (22-29); Chloride 106 mmol/L (98-107); Glucose 77 mg/dL (65-115); Osmolality Calculated 284 mOsm/kg (285-295); Potassium 3.7 mmol/L (3.5-5.1); Sodium 137 mmol/L (136-145); Total Bilirubin 1.1 mg/dL (0.15-1.2); Total Protein 6.1 g/dL (6.6-8.7)
[2021-05-08 06:04] LABS: Procalcitonin 0.42 ng/mL (0-0.5)
[2021-05-08 06:44] LABS: Glucose Point of Care 77 mg/dL (70-110)
[2021-05-08 07:24] VITALS: BP 150/73; PULSE 77; RESP 18; TEMP 37; O2SAT 92
[2021-05-08] MEDS: neomycin-poly-bacitracin oint 28 gm 1 APPLIC TOPICAL ×2 (09:15→17:09)
[2021-05-08] MEDS: duloxetine 60 mg Capsule PO (09:15)
[2021-05-08] MEDS: ferrous gluconate 324 mg Tablet PO ×2 (09:15→17:08)
[2021-05-08] MEDS: carvedilol 25 mg Tablet PO ×2 (09:15→17:08)
[2021-05-08] MEDS: famotidine 20 mg/2 mL INJ IVP (10:13)
[2021-05-08 11:33] VITALS: BP 150/73; PULSE 71; RESP 18; TEMP 36.9; O2SAT 90
[2021-05-08 12:03] LABS: Glucose Point of Care 146 mg/dL (70-110)
[2021-05-08] MEDS: vancomycin 1,500 MG/300 ML PIGGYBACK 200 MG IV (12:16)
[2021-05-08 12:30] LABS: Vancomycin Trough 10.1 ug/mL (10-15)
--- NOTE | 2021-05-08 12:48 | P.PN_ITS ---
Subjective Subjective: Interval history: Surendra reports he is doing okay. Some pain but controlled with medication. Medications: Reviewed: Yes Vitals/I&O/Wt Last Vital Signs Temp 98.5 F 05/08/21 11:33 Pulse 71 05/08/21 11:33 Resp 18 05/08/21 11:33 BP 150/73 05/08/21 11:33 Pulse Ox 90 05/08/21 11:33 05/07/21 05/08/21 05/08/21 22:59 06:59 14:59 Intake Total 35074 / 21233 638.75 / 48525.75 589.167 / 589.167 Output Total 535 / 1035 Balance 9545 / 26034 638.75 / 59651.75 589.167 / 589.167 Weight last 48 hrs Weight 123.468 kg Weight 123.967 kg Physical Exam Narrative: EXAM NARRATIVE: General exam no apparent distress Neck is supple no lymphadenopathy or thyromegaly Cardiovascular regular rate and rhythm without murmur Lungs clear Abdomen is soft with positive bowel sounds Extremities no cyanosis or clubbing. Right lower extremity has edema, mild erythema anterior mahajan. Foot has dressing, clean and dry. Data : 05/08/21 05:18 05/08/21 05:18 Micro: Microbiology 05/06/21 17:37 Gram Stain - Final Foot - #4 Tissue Culture - Preliminary Staphylococcus aureus 05/06/21 12:30 Blood Culture - Preliminary Blood NEGATIVE TO DATE 05/06/21 12:20 Blood Culture - Preliminary Blood NEGATIVE TO DATE 05/06/21 16:31 MRSA Culture - Final Nose A&P Assessment and plan (1) Osteomyelitis of right foot: Osteomyelitis fourth toe, proximal phalanx. This was removed during amputation. Currently on vancomycin and Zosyn MRSA PCR negative Venous and arterial duplex taken but pending Postoperative day #2 status post amputation Status: Acute (2) Osteomyelitis of toe of left foot: Status: Resolved (3) EZEQUIEL (acute kidney injury): Renal function now stable Avoid renal toxic medication Status: Acute (4) Congestive heart failure: Compensated Status: Acute Qualifiers: Heart failure chronicity: acute Heart failure type: diastolic Qualified Code(s): I50.31 - Acute diastolic (congestive) heart failure (5) Diabetes: Sliding scale insulin Status: Chronic (6) Hypoglycemia: Required D5 for short period of time. Status: Acute (7) HTN (hypertension): Status: Chronic (8) PVD (peripheral vascular disease): Status: Acute (9) S/P AVR (aortic valve replacement): Status: Chronic (10) Chronic anticoagulation: Continue Xarelto Status: Chronic Additional A&P Information History of atrial fibrillation. Currently on anticoagulation, and rate controlled. 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
--- NOTE | 2021-05-08 14:14 | PC.OT ---
OT NOTE: OT ORDERS RECEIVED. ORDER STATED CAM BOOT TO BE APPLIED TO OPERATIVE EXTREMITY. P.T. APPLIED THE BOOT TO THE PATIENT THIS FALLS WITHIN THEIR SCOPE OF PRACTICE. PER P.T. NO FURTHER SKILLED OT REQUIRED. WILL AWAIT NEW ORDERS IF NEEDED.
[2021-05-08 16:00] VITALS: BP 119/51; PULSE 78; RESP 18; TEMP 36.5; O2SAT 90
[2021-05-08 16:56] LABS: Glucose Point of Care 153 mg/dL (70-110)
[2021-05-08] MEDS: rivaroxaban 10 mg Tablet 20 MG PO (17:08)
[2021-05-08] MEDS: famotidine 20 mg Tablet PO (17:08)
[2021-05-08 20:00] VITALS: BP 149/77; PULSE 72; RESP 18; TEMP 37.1; O2SAT 92
[2021-05-08] MEDS: tamsulosin 0.4 mg Capsule 0.8 MG PO (21:08)
[2021-05-08 21:19] LABS: Glucose Point of Care 153 mg/dL (70-110)
[2021-05-08 23:53] VITALS: BP 149/68; PULSE 80; RESP 18; TEMP 37.6; O2SAT 98
[2021-05-09] MEDS: HYDROcodone-acetaminophen 5-325 mg Tablet 1 TAB PO ×2 (02:44→10:28)
[2021-05-09 03:33] VITALS: BP 146/73; PULSE 78; RESP 18; TEMP 37.7; O2SAT 96
[2021-05-09] MEDS: vancomycin 1,500 MG/300 ML PIGGYBACK 200 MG IV (05:08)
[2021-05-09] MEDS: isosorbide mononitrate ER 30 mg Tablet PO (05:13)
[2021-05-09] MEDS: potassium chloride ER 20 mEq Tablet PO (05:13)
[2021-05-09] MEDS: ascorbic acid 500 mg Tablet 1000 MG PO (05:13)
[2021-05-09 05:53] LABS: Basophils # 0.1 10^3/uL (0.0-0.1); Basophils % 0.7 %; Eosinophils # 0.3 10^3/uL (0.0-0.8); Eosinophils % 3.1 %; Hematocrit 37.8 % (42.0-52.0); Hemoglobin 11.7 g/dL (11.7-16.6); Lymphocytes # 0.9 10^3/uL (0.8-4.8); Lymphocytes % 8.6 %; Mean Corpuscular Hemoglobin 28.9 pg (28.0-34.0); Mean Corpuscular Volume 93.3 fL (80-94); Monocytes # 0.9 10^3/uL (0.2-0.9); Monocytes % 8.7 %; Neutrophils # 8.29 10^3/uL (1.8-7.7); Neutrophils % 78.4 %; Nucleated Red Blood Cells % 0 %; Platelet Count 206 10^3/cmm (130-400); Red Blood Count 4.05 10^6/uL (4.1-5.3); Red Cell Distribution Width 13.8 % (12.1-15.1); White Blood Count 10.6 10^3/uL (4.0-10.0)
[2021-05-09 06:04] LABS: Anion Gap 13.6 (5-19); Blood Urea Nitrogen 20 mg/dL (8-23); Carbon Dioxide 21 mmol/L (22-29); Chloride 103 mmol/L (98-107); Glucose 66 mg/dL (65-115); Osmolality Calculated 279 mOsm/kg (285-295); Potassium 3.6 mmol/L (3.5-5.1); Sodium 134 mmol/L (136-145)
[2021-05-09 06:37] LABS: Glucose Point of Care 68 mg/dL (70-110)
[2021-05-09] MEDS: piperacillin-tazobactam 3.375 GM in sodium chloride 0.9% (plus) 100 ML IV ×2 (06:54→12:09)
[2021-05-09 07:15] LABS: Glucose Point of Care 72 mg/dL (70-110)
[2021-05-09 08:00] VITALS: BP 149/66; PULSE 81; RESP 18; TEMP 36.4; O2SAT 92
[2021-05-09] MEDS: duloxetine 60 mg Capsule PO (08:20)
[2021-05-09] MEDS: ferrous gluconate 324 mg Tablet PO ×2 (08:20→16:51)
[2021-05-09] MEDS: famotidine 20 mg Tablet PO ×2 (08:20→16:52)
[2021-05-09] MEDS: carvedilol 25 mg Tablet PO ×2 (08:20→16:51)
[2021-05-09] MEDS: rivaroxaban 10 mg Tablet 20 MG PO (08:20)
--- NOTE | 2021-05-09 11:00 | PC.SOCIAL ---
IMM update IMM updated with patient. Copy of Pg 2 provided. No questions voiced, verbalized an understanding. Initialed, dated, timed, and placed in chart.
[2021-05-09 11:51] VITALS: BP 144/75; PULSE 76; RESP 16; TEMP 37.1; O2SAT 91
[2021-05-09 11:54] LABS: Glucose Point of Care 171 mg/dL (70-110)
[2021-05-09] MEDS: neomycin-poly-bacitracin oint 28 gm 1 APPLIC TOPICAL (11:57)
--- NOTE | 2021-05-09 13:57 | P.DS_ITS ---
Discharge Providers Date of Admission: 05/06/21 19:14 Date of Discharge: May 09, 2021 Attending Provider at Admission: Irvin Blanco MD Attending Provider at Discharge: Irvin Blanco MD Primary Care Provider: Chon Bradshaw DO Diagnoses at Discharge Discharge Diagnosis (1) Osteomyelitis of right foot: Status: Acute (2) Osteomyelitis of toe of left foot: Status: Resolved (3) EZEQUIEL (acute kidney injury): Status: Acute (4) Congestive heart failure: Status: Acute Qualifiers: Heart failure chronicity: acute Heart failure type: diastolic Qualified Code(s): I50.31 - Acute diastolic (congestive) heart failure (5) Diabetes: Status: Chronic (6) Hypoglycemia: Status: Acute (7) HTN (hypertension): Status: Chronic (8) PVD (peripheral vascular disease): Status: Acute (9) S/P AVR (aortic valve replacement): Status: Chronic Permanent problem details: Bioprosthetic, bovine (10) Chronic anticoagulation: Status: Chronic Permanent problem details: Xarelto Reason for Visit Reason for Visit: R FOOT/TOE PAIN Hospital Course Hospital Course Surendra is a 70-year-old white male who presented to the hospital with increasing right foot pain. He was found to have a gangrenous toe, and cellulitis of his lower extremity. He was placed on broad-spectrum antibiotics consisting of vancomycin and Zosyn. Surgery was consulted. CT foot demonstrated foci of gas proximal phalanx fourth toe and likely osteomyelitis proximal phalanx fourth toe. Surgery was performed May 06. Following this patient did well in the postsurgical period. He did have some hypoglycemia and was eventually placed on sliding scale alone. This is reflected in his insulin discharge instructions. Cellulitis for the most part resolved. He will finish out 14 days of doxycycline. He eventually cultured staph aureus from his wound. He will follow-up with surgical services next week. Preliminary venous duplex readings on that side were negative for DVT. Arterial disease was elevated with a diminished LILLIAN on preliminary which will require referral to vascular services and as an outpatient. This will be arranged as well. Physical Exam Narrative: EXAM NARRATIVE: General exam no apparent distress Neck is supple no lymphadenopathy or thyromegaly Cardiovascular regular rate and rhythm without murmur Lungs clear Abdomen is soft with positive bowel sounds Extremities no cyanosis or clubbing. Some edema present right lower extremity. Discharge Data Data Completed and Pending: Completed Studies During Hospitalization Category Date Time Status CT foot RT w con [id number] Urgent Cat Scan 05/06/21 14:07 Completed XR foot RT min 3V * [id number] Urgent Exams 05/06/21 11:58 Completed Pending at discharge Category Date Time Status Blood Culture Sta t Lab 05/06/21 12:30 Results Pathology: Surgic al [PTH] Routine Pth 05/06/21 18:17 [place] [id number] Urge nt Ultrasound 05/06/21 12:16 [place] [id number] Routin e Ultrasound 05/06/21 16:10 Taken Labs from last 24 hours 05/09/21 05/09/21 05/09/21 11:46 07:12 06:28 WBC RBC Hgb Hct MCV MCH MCHC RDW Plt Count MPV Neut % (Auto) Lymph % (Auto) Sterling % (Auto) Eos % (Auto) Baso % (Auto) Neut # (Auto) Lymph # (Auto) Sterling # (Auto) Eos # (Auto) Baso # (Auto) Nucleated RBC % (a uto) Nucleated RBCs # Sodium Potassium Chloride Carbon Dioxide Anion Gap BUN Creatinine GFR Calculation Glucose POC Glucose 171 H 72 68 L Calculated Osmolal ity Calcium 05/09/21 05/09/21 05/08/21 04:47 04:47 20:29 WBC 10.6 H RBC 4.05 L Hgb 11.7 Hct 37.8 L MCV 93.3 MCH 28.9 MCHC 31.0 RDW 13.8 Plt Count 206 MPV 10.0 Neut % (Auto) 78.4 Lymph % (Auto) 8.6 Sterling % (Auto) 8.7 Eos % (Auto) 3.1 Baso % (Auto) 0.7 Neut # (Auto) 8.29 H Lymph # (Auto) 0.9 Sterling # (Auto) 0.9 Eos # (Auto) 0.3 Baso # (Auto) 0.1 Nucleated RBC % (a uto) 0 Nucleated RBCs # 0.0 Sodium 134 L Potassium 3.6 Chloride 103 Carbon Dioxide 21 L Anion Gap 13.6 BUN 20 Creatinine 1.1 GFR Calculation Not Reportable Glucose 66 POC Glucose 153 H Calculated Osmolal ity 279 L Calcium 8.0 L 05/08/21 16:10 WBC RBC Hgb Hct MCV MCH MCHC RDW Plt Count MPV Neut % (Auto) Lymph % (Auto) Sterling % (Auto) Eos % (Auto) Baso % (Auto) Neut # (Auto) Lymph # (Auto) Sterling # (Auto) Eos # (Auto) Baso # (Auto) Nucleated RBC % (a uto) Nucleated RBCs # Sodium Potassium Chloride Carbon Dioxide Anion Gap BUN Creatinine GFR Calculation Glucose POC Glucose 153 H Calculated Osmolal ity Calcium Vitals: Last Vital Signs Temp 98.8 F 05/09/21 11:51 Pulse 76 05/09/21 11:51 Resp 16 05/09/21 11:51 BP 144/75 05/09/21 11:51 Pulse Ox 91 05/09/21 11:51 Discharge Plan Discharge Patient Disposition: Home Health Service Condition: Stable Prescriptions: New doxycycline monohydrate 100 mg capsule 100 mg PO BID 14 Days Qty: 28 RF: 0 Continued duloxetine [Cymbalta] 60 mg capsule,delayed release(DR/EC) 60 mg PO DAILY RF: 0 tamsulosin [Flomax] 0.4 mg capsule 0.8 mg PO BEDTIME RF: 0 carvedilol 25 mg tablet 25 mg PO BID Qty: 180 RF: 3 multivitamin Tablet 1 tab PO DAILY RF: 0 Vitamin C 1,000 mg Tablet 1,000 mg PO QAM RF: 0 Jardiance 25 mg tablet 25 mg PO QAM RF: 0 furosemide 40 mg tablet See Rx Instructions .ROUTE .COMPLEX RF: 0 isosorbide mononitrate 30 mg tablet extended release 24 hr 30 mg PO QAM RF: 0 spironolactone 25 mg tablet 25 mg PO QAM RF: 0 losartan 100 mg tablet 100 mg PO QAM RF: 0 Xarelto 20 mg tablet 20 mg PO QPM RF: 0 potassium chloride 20 mEq tablet extended release 20 meq PO QAM RF: 0 Changed Novolog PenFill U-100 Insulin 100 unit/mL cartridge 5 unit SUBCUT TID Qty: 0 RF: 0 Tresiba FlexTouch U-200 200 unit/mL (3 mL) insulin pen 20 unit SUBCUT BEDTIME Qty: 0 RF: 0 Discharge Orders: Discharge Order (Routine); Ordered 05/09/21 Ordered By: Go Ford Referrals: Irvin Blanco MD [Physician] - 05/18/21 8:30 am (Return to surgery office in 10 days upon discharge at the certified ophthalmic surgical assistant office.) Alfred Damon MD [Physician] - 2 weeks (peripheral vascular disease) Chon Bradshaw DO [Primary Care Provider] - 05/24/21 1:30 pm Discharge Diet: Cardiac and Diabetic Discharge Activity: Limit activity as instructed Patient Instructions: Opioid Safety Activity Restrictions/Additional Instructions: 1. Patient can shower after 48 hours from surgery, make sure the patient has a good seal with a plastic bag to avoid moisture of the wound 2. Daily dressing change using triple antibiotic ointment, small portion followed by 4 x 4's ABDs Kerlix and Benoit 3.Nonweightbearing right forefoot 4. Do lift more than 5 pounds first 2 weeks after surgery and not more than 25 pounds 6 to 8 weeks after surgery. 5. Do not operate heavy machinery or drive while using pain medications. 6.Contact the office or return to the ER for worsening nausea vomiting fevers or chills, or noticing any redness around incision sites or discharge. Take all medicine as prescribed Follow-up with surgery next week Complete your entire course of antibiotics. Note that your blood sugar medication has been reduced. This may need to be increased as you start feeling better. Please contact your physician if your blood sugars are running over 250 consistently. Discharge Attestations Time Spent in Discharge Care*: greater than 30 min Quality Metrics Clinical Quality Measures During this hospital stay, did patient experience: None Coding Level of Care Code Acute [facility] note Diagnoses Osteomyelitis of right foot M86.9 Osteomyelitis of toe of left foot M86.9 EZEQUIEL (acute kidney injury) N17.9 Congestive heart failure I50.31 Heart failure chronicity: acute Heart failure type: diastolic Diabetes E11.9 Hypoglycemia E16.2 HTN (hypertension) I10 PVD (peripheral vascular disease) I73.9 S/P AVR (aortic valve replacement) Z95.2 Chronic anticoagulation Z79.01
[2021-05-09] MEDS: FUROsemide 10 mg/mL SDV 4mL 40 MG IVP (15:09)
[2021-05-09 16:00] VITALS: BP 172/72; PULSE 68; RESP 16; TEMP 36.7; O2SAT 95
[2021-05-09 16:41] LABS: Glucose Point of Care 197 mg/dL (70-110)
--- NOTE | 2021-05-09 17:34 | PC.NURSE ---
DR GLORIA CASTRO NOTIFIED OF PT DIURESING APPROX 900+URINE - PT STATES BREATHING EASIER - SATS CURRENTLY AT 93%
--- NOTE | 2021-05-09 17:57 | PC.NURSE ---
DISCHARGE INSTRUCTIONS DISCHARGE INSTRUCTIONS GIVEN TO PT AND NEPHEW- PT REQUESTED PAIN MEDICATION BE CALLED TO PHARMACY - DR Gemini CASTRO NOTIFIED AND REQUEST TO BE SENT -
[2021-05-09 18:03] VITALS: BP 172/72; PULSE 68; RESP 16; TEMP 36.7; O2SAT 95
== END 2021-05-09 18:04 | disposition home health service (06) | DRG 255 ==
LOC: ER 16:15 → OR 16:59 → MEDSURG 19:14
PROVIDERS: Internal Medicine; Physician Assistant; Student in an Organized Health Care Education/Training Program; Admitting Provider Surgery; Emergency Provider Family Medicine; PCP Internal Medicine; Visit Provider Surgery
PROC: 0Y6V0Z3 Detachment at Right 4th Toe, Low, Open Approach (ICD-10-PCS; principal; 2021-05-06 16:30)
DX: E11.52 Type 2 diabetes mellitus with diabetic peripheral angiopathy with gangrene (principal); I50.33 Acute on chronic diastolic (congestive) heart failure; I96 Gangrene, not elsewhere classified; M86.172 Other acute osteomyelitis, left ankle and foot; M86.171 Other acute osteomyelitis, right ankle and foot; N17.9 Acute kidney failure, unspecified; L03.115 Cellulitis of right lower limb; E11.69 Type 2 diabetes mellitus with other specified complication; E11.649 Type 2 diabetes mellitus with hypoglycemia without coma; E78.5 Hyperlipidemia, unspecified; I11.0 Hypertensive heart disease with heart failure; E66.9 Obesity, unspecified; Z68.39 Body mass index [BMI] 39.0-39.9, adult; Z86.73 Personal history of transient ischemic attack (TIA), and cerebral infarction without residual deficits; Z95.3 Presence of xenogenic heart valve; I48.0 Paroxysmal atrial fibrillation; N40.0 Benign prostatic hyperplasia without lower urinary tract symptoms; B95.61 Methicillin susceptible Staphylococcus aureus infection as the cause of diseases classified elsewhere; Z79.84 Long term (current) use of oral hypoglycemic drugs; Z79.01 Long term (current) use of anticoagulants
CPT/HCPCS: 36415; 36416; 73630; 73701; 80048; 80053; 80202; 82962; 83036; 83540; 83550; 83605; 83735; 83880; 84100; 84145; 84439; 84443; 84481; 85025; 85651; 86140; 87040; 87070; 87077; 87176; 87186; 87205; 87641; 88305; 88311; 93005; 93926; 93971; 96365; 96367; 96372; 96375; 97116; 97161; 97530; 99285; J1644; J1815; J1940; J2270; J2370; J2405; J2543; J2704; J3010; J3370; J3490; J7040; J7050; L4361; Q9967

== ENCOUNTER 2021-05-29 13:26 | Outpatient (CLI) | payer MEDICARE, SELFPAY | END 2021-05-29 13:27 | disposition home or self-care (01) | LOC: WOUND 13:29 | PROVIDERS: PCP Internal Medicine; Visit Provider Thoracic Surgery (Cardiothoracic Vascular Surgery) | DX: I96 Gangrene, not elsewhere classified (principal); E11.621 Type 2 diabetes mellitus with foot ulcer; L97.513 Non-pressure chronic ulcer of other part of right foot with necrosis of muscle; Z89.421 Acquired absence of other right toe(s); Z87.891 Personal history of nicotine dependence | CPT/HCPCS: 11043; 87070; 87077; 87176; 87186; 87205; G0463 ==

== ENCOUNTER 2021-06-05 13:11 | Outpatient (CLI) | payer MEDICARE, SELFPAY | END 2021-06-05 13:12 | disposition home or self-care (01) | LOC: WOUND 13:12 | PROVIDERS: PCP Internal Medicine; Visit Provider Nurse Practitioner Family | DX: E11.621 Type 2 diabetes mellitus with foot ulcer (principal); L97.516 Non-pressure chronic ulcer of other part of right foot with bone involvement without evidence of necrosis; Z89.421 Acquired absence of other right toe(s); Z87.891 Personal history of nicotine dependence | CPT/HCPCS: 11044 ==

== ENCOUNTER 2021-06-09 13:12 | Outpatient (CLI) | payer MEDICARE, SELFPAY ==
--- NOTE | 2021-06-09 13:24 | CT_ITS ---
WS: [id number] CTA ABDOMINAL AORTA WITH RUNOFF TECHNIQUE: Contrast enhanced CTA of the abdominal aorta with bilateral lower extremity runoff. Multip lanar reformatted images were obtained. MIP reformats were also reviewed. CLINICAL INFORMATION: PERIPHERAL ARTERIAL DISEASE COMPARISON: None. DLP: 1616.[address] scans at [facility] use at least one of these dose optimization techniques: automated e xposure control; mA and/or kV adjustment per patient size (includes targeted exams where dose is matc hed to clinical indication); or iterative reconstruction. FINDINGS: Normal caliber abdominal aorta. No abdominal aortic aneurysm. Normal celiac and SMA origins . Proximal renal artery origins are normal. ANDRES is patent. RIGHT: Moderate calcified atheromatous disease right common iliac artery which is patent. Segmental s tenosis right internal iliac artery. External iliac artery is patent. Moderate calcified atheromatous disease common femoral artery with mild stenosis. Superficial and deep femoral arteries are patent a t the origin. Moderate segmental narrowing involving the superficial femoral artery without flow-limi ting stenosis. Maximum stenosis measuring approximately 60% in the mid superficial femoral artery in the mid thigh with dense focal calcification. SFA remains patent to the adductor hiatus. Popliteal ar jean is patent with mild segmental narrowing. Popliteal artery is patent to the trifurcation with bulmaro notic three-vessel runoff to the ankle. LEFT: Left common iliac artery is patent. Internal and external iliac arteries are patent. Moderate c alcified atheromatous disease left common femoral artery with mild stenosis. Superficial and deep fem oral arteries are patent. Moderate segmental narrowing superficial femoral artery without flow-limiti ng stenosis. SFA is patent to the adductor hiatus. Mild segmental narrowing popliteal artery. Poplite al artery is patent to the trifurcation with three-vessel runoff to the ankle. Short segment occlusio n of the posterior tibial artery in the mid calf. Sternotomy. Lung bases are well aerated. Diffuse fatty infiltration the liver. Mild hepatomegaly. Nor mal portal vein and splenic vein. Diffuse pancreatic ductal dilatation with dystrophic calcifications compatible with chronic pancreatitis. Prior cholecystectomy. No abdominal or pelvic lymphadenopathy. No inguinal lymphadenopathy. Enlarged prostate measuring 5 cm. Recommend correlation PSA. Normal appendix in the right lower quadr ant. CT/CT angio abd aorta runof [id number] IMPRESSION: 1. Normal caliber abdominal aorta. No aneurysm. 2. RIGHT: Moderate stenosis superficial femoral artery in the mid thigh measur ing approximately 60% which remains patent. Moderate segmental narrowing in the superficial femoral artery. Popliteal artery is patent with stenotic three-ves shai runoff to the ankle with segmental stenosis. 3. LEFT: Moderate segmental narrowing superficial femoral artery without flow- limiting stenosis. Mild segmental narrowing popliteal artery. Stenotic three-ve ssel runoff to the ankle with segmental stenosis. Short segment occlusion of th e posterior tibial artery in the mid calf which reconstitutes distally. 4. Nonvascular findings described above.
[2021-06-09] MEDS: iohexol 350 mg/mL 100 mL Btl IV (14:06)
== END 2021-06-09 13:13 | disposition home or self-care (01) ==
PROVIDERS: PCP Internal Medicine; Visit Provider Thoracic Surgery (Cardiothoracic Vascular Surgery)
DX: I73.9 Peripheral vascular disease, unspecified (principal); I70.8 Atherosclerosis of other arteries
CPT/HCPCS: 75635; Q9967

== ENCOUNTER 2021-06-13 13:08 | Outpatient (CLI) | payer MEDICARE, SELFPAY | END 2021-06-13 13:09 | disposition home or self-care (01) | LOC: WOUND 13:14 | PROVIDERS: PCP Internal Medicine; Visit Provider Emergency Medicine | DX: E11.621 Type 2 diabetes mellitus with foot ulcer (principal); L97.513 Non-pressure chronic ulcer of other part of right foot with necrosis of muscle; Z89.421 Acquired absence of other right toe(s); Z87.891 Personal history of nicotine dependence | CPT/HCPCS: 11042 ==

== ENCOUNTER 2021-06-20 14:28 | Outpatient (CLI) | payer MEDICARE, SELFPAY | END 2021-06-20 14:29 | disposition home or self-care (01) | LOC: WOUND 14:29 | PROVIDERS: PCP Internal Medicine; Visit Provider Nurse Practitioner Family | DX: E11.621 Type 2 diabetes mellitus with foot ulcer (principal); L97.513 Non-pressure chronic ulcer of other part of right foot with necrosis of muscle; Z89.421 Acquired absence of other right toe(s); Z87.891 Personal history of nicotine dependence | CPT/HCPCS: 11042 ==

== ENCOUNTER 2021-06-27 14:29 | Outpatient (CLI) | payer MEDICARE, SELFPAY | END 2021-06-27 14:30 | disposition home or self-care (01) | LOC: WOUND 14:32 | PROVIDERS: PCP Internal Medicine; Visit Provider Nurse Practitioner Family | DX: E11.621 Type 2 diabetes mellitus with foot ulcer (principal); L97.513 Non-pressure chronic ulcer of other part of right foot with necrosis of muscle; Z89.421 Acquired absence of other right toe(s); Z87.891 Personal history of nicotine dependence | CPT/HCPCS: 11042 ==

== ENCOUNTER 2021-07-04 14:46 | Outpatient (CLI) | payer MEDICARE, SELFPAY | END 2021-07-04 14:47 | disposition home or self-care (01) | LOC: WOUND 14:48 | PROVIDERS: PCP Internal Medicine; Visit Provider Thoracic Surgery (Cardiothoracic Vascular Surgery) | DX: E11.621 Type 2 diabetes mellitus with foot ulcer (principal); L97.512 Non-pressure chronic ulcer of other part of right foot with fat layer exposed; Z87.891 Personal history of nicotine dependence; Z89.421 Acquired absence of other right toe(s) | CPT/HCPCS: 11042 ==

== ENCOUNTER 2021-07-11 14:24 | Outpatient (CLI) | payer MEDICARE, SELFPAY | END 2021-07-11 14:25 | disposition home or self-care (01) | LOC: WOUND 14:25 | PROVIDERS: PCP Internal Medicine; Visit Provider Thoracic Surgery (Cardiothoracic Vascular Surgery) | DX: E11.621 Type 2 diabetes mellitus with foot ulcer (principal); L97.512 Non-pressure chronic ulcer of other part of right foot with fat layer exposed; Z89.421 Acquired absence of other right toe(s); Z87.891 Personal history of nicotine dependence | CPT/HCPCS: 11042 ==

== ENCOUNTER → 2021-07-17 11:53 | Outpatient (BNVA) | payer MEDICARE, SELFPAY | PROVIDERS: PCP Internal Medicine; Referring Provider Internal Medicine; Visit Provider Internal Medicine | DX: Z01.818 Encounter for other preprocedural examination (principal); I73.9 Peripheral vascular disease, unspecified; Z20.822 Contact with and (suspected) exposure to COVID-19 | CPT/HCPCS: 80048; 85025; 85610; 87635 ==

== ENCOUNTER 2021-07-18 15:26 | Outpatient (CLI) | payer MEDICARE, SELFPAY | END 2021-07-18 15:27 | disposition home or self-care (01) | LOC: WOUND 15:27 | PROVIDERS: PCP Internal Medicine; Visit Provider Thoracic Surgery (Cardiothoracic Vascular Surgery) | DX: E11.621 Type 2 diabetes mellitus with foot ulcer (principal); L97.512 Non-pressure chronic ulcer of other part of right foot with fat layer exposed; Z89.421 Acquired absence of other right toe(s); Z87.891 Personal history of nicotine dependence | CPT/HCPCS: 11043 ==

== ENCOUNTER 2021-07-21 05:54 | Outpatient (CLI) | payer MEDICARE, SELFPAY ==
[2021-07-21] VITALS (32 sets, daily range): BP systolic 144–183; BP diastolic 48–83; PULSE 62–76; RESP 11–24; TEMP 36.9–37; O2SAT 93–98; BMI 35.9; BMI 35.0
--- NOTE | 2021-07-21 | XACV_ITS ---
Exam Room: [facility] Ht: 178 cm Wt: 113 kg BSA: 2.41 m2 Gender: Male : 1950 Any Known Allergies: No known allergies Exam Priority: Routine Procedure(s): Procedure Description: Peripheral Cath Diagnostic Procedure Procedure Description: Abdominal aortic angiography Procedure Description: Lower extremities' angiography Procedure Description: Peripheral vascular Intervention Procedure Description: PV Balloon Diagnostic Cath Status: Elective PCI Status: Elective Lower Extremity Diagnostic Findings INDICATION: Critical limb ischemia. Right common iliac artery: Patent Right external iliac artery: Patent Right internal iliac artery: Patent Right common femoral artery: Patent Right profunda femoral artery: Patent Right SFA: There is moderate, calcified serial stenotic areas noted. Right popliteal artery: Patent Anterior tibial artery: Occluded TP trunk: Has distal severe stenosis. 80% narrowing. Peroneal artery: Has significant proximal vessel stenosis. Posterior tibial artery: Occluded, fills with collaterals distally. Left common iliac artery: Patent Left external iliac artery: Patent Left internal iliac artery: Patent Left common femoral artery: Patent Left profunda femoral artery: Patent Left SFA: Diffuse mild to moderate stenosis Left popliteal artery: Patent Femoral to popliteal bypass: Patent Anterior tibial artery: Occluded. Distally fills by collaterals. TP segment: Severe distal stenosis. Peroneal artery: Occluded. Distally fills by collaterals. Posterior tibial artery: Occluded. Lower Extremity Interventional Findings Procedure detail: After getting access in the left common femoral artery, abdominal angiogram was performed. We then switched 6 Guamanian short sheath with a 6 Guamanian long sheath that was put in distal right external artery. Selective angiogram showed severe stenosis of TP trunk and proximal peroneal artery. IV heparin was administered. Balloon angioplasty was performed. At this time balloon was removed.Patient had significant residual stenosis, however given the size of the vessel and risk for acute closure we did not proceed with angioplasty with larger balloons. Long sheath was switched to 6 Guamanian short sheath. Patient left the Emergency Room Physician in a stable condition. Conclusions Severe right tibioperoneal artery stenosis. Severe proximal peroneal artery stenosis. s/p revascularization with balloon angioplasty. Recommendations Continue current medications including Xarelto. Outpatient cardiology follow up in 4 weeks. Pressures Phase:Rest AO : 149 / 40 ( 78 ) @ 6:52:00 AM 131 / 41 ( 73 ) @ 7:03:00 AM 107 / 43 ( 70 ) @ 7:09:00 AM 136 / 42 ( 75 ) @ 7:20:00 AM Hemodynamic Data Phase:Rest AO : 149.0 / 40.0 ( 78.0 ) @ 6:52:00 AM 131.0 / 41.0 ( 73.0 ) @ 7:03:00 AM 107.0 / 43.0 ( 70.0 ) @ 7:09:00 AM 136.0 / 42.0 ( 75.0 ) @ 7:20:00 AM Clinical Evaluation EBL: 5mL-10mL Procedural Details Procedure Consent Obtained. Pre-Procedure Time Out. Identified patient by full name and date of as verbalized by the patient/guarantor. Does the consent match the physician's order: Yes. Accurate & Complete Informed Consent: Yes. Inpatient/Outpatient History & Physical on Chart: Yes. If H&P is completed, is and addenduem needed: Yes; If yes, is the addendum complete: N/A. Visualize and Verify Site with Patient/Guarantor: N/A. Relevant Radiology Images available: Yes. The risks, benefits, and alternatives of sedation and/or procedure were discussed by physician. The patient agrees to continue. Pre-op teaching completed and patient verbalized understanding. Procedure started. Correct patient, site and procedure confirmed by cath team. PERRLA. Strong, equal hand ground hand bilaterally. Lungs clear x 5 lobes. IV Site on Arrival: 20 gauge in the left anticubital. IV Fluids: 0.9% NaCl at KVO. 0 mL infused prior to laborer [employer]. Pre Procedural Pulses: bilateral dorsalis pedis was Doppled. Pre Procedural Pulses: bilateral posterior tibial was Doppled. Pre Procedural Pulses: bilateral radial was 2+. Oxygen started at 2liters/min via nasal canula. bilateral groins was prepped with chloroprep then draped in the usual sterile fashion. Physician notified. Baseline sample Acquired. HR: 0 BPM. Physician arrived. Physician scrubbed in. Immediate Pre-Procedure Time Out. Correct Patient: Yes; Correct Procedure: Yes; Correct Site: Yes; Correct Patient Position: Yes; Correct Supplies: Yes; Dried Flammable Prep: Yes; Blood Products Available: N/A;. Lidocaine 1% infiltrated to the left groin. Arterial access obtained with micropuncture set. A 5Fr UF catheter in over wire. Abdominal aortogram performed in AP @ 10 mL/sec for a total of 30 mL. glidewire inserted through the catheter. wire out. contrast hand injected through the catheter. glidewire inserted through the catheter. Catheter removed over the glide wire. Sheath upsized to a 6 Fr. Flexor sheath. Sheath injected in Left common femoral artery and runoff performed of the right leg. Seeker catheter inserted over the wire. glidewire out. Seeker catheter inserted over the wire and advanced to the right tibial peroneal trunk. contrast hand injected through the seeker catheter. Command wire inserted through the catheter. wire out. contrast hand injected through the seeker catheter. Command wire inserted through the catheter. seeker catheter out OTW. Inflation number : 1 A AB ARMADA 14 OTW [id number] was prepped and advanced across the Tibial Peroneal Trunk, Right , then inflated to 8 SHON for 2:00 seconds. Inflation number: 1 The AB ARMADA 14 OTW [id number] was reinflated across the Peroneal, Right, to 0 SHON for 1:40 seconds. Balloon out over wire. Seeker catheter inserted over the wire and advanced to the right tibial peroneal trunk. wire out. contrast hand injected through the seeker catheter. wire and seeker out. glidewire inserted through the sheath. The 6Fr Flexor sheath was exchanged for a 6Fr short sheath. Sheath injected in Left common femoral artery and runoff performed. Physician review of cine films. ACT drawn. Results 170 seconds. Therapeutic limits - pre-heparin administration 90-150 seconds and monitoring heparin during a vascular procedure >250 seconds. Physician scrubbed out. Sheath(s) sutured into position with 2-0 silk and sterile 4x4's and Op-site applied over the site. No oozing or signs and symptoms of hematoma noted. Arterial sheath flushed and connected to tranducer and pressure bag with heparinized saline. Post Procedure: Pulses reassessed and unchanged. PERRLA. Strong, equal hand ground hand bilaterally. No VTE prophylaxis required. Medication's Wasted: Lidocaine 1% = 13 mL. Medication's Wasted: Other = Fentanly 25mcg Versed 2 mg. Total IV fluids: 70 mL. Contrast type used: Visipaque 320 mgI/mL, 500 mL bottle. Complications: None. Vital chart was stopped. Estimated blood loss: 5mL-10mL. Procedure completed. Patient transferred by bed to 1st floor. Access Site Site: Left Femoral artery Sheath Size: 6 Fr Hemostasis Success: Unsuccessful Procedure Medications Start: 7:42 AM Stop: 7:42 AM Medication: Versed Amount: 1 mg Route: I.V. Start: 7:50 AM Stop: 7:50 AM Medication: Versed 1 mg and Fentanyl 25 mcg Amount: 1 Route: I.V. Start: 7:51 AM Stop: 7:51 AM Medication: Fentanyl Amount: 25 mcg Route: I.V. Start: 8:01 AM Stop: 8:01 AM Medication: Heparin Amount: 1500 units Route: I.V. Start: 8:10 AM Stop: 8:10 AM Medication: Heparin Amount: 2500 units Route: I.V. I, the attending physician, have reviewed and verified all procedure medications. Yes, all medications given per verbal order History/Risk Factors Hypertension: Yes Dyslipidemia: Yes Peripheral Arterial Disease (PAD): Yes Myocardial Infarction (WI): No Obesity: No Renal Disease: No Prior Interventions PCI: No CABG: No Valve Surgery: No Report Signatures Finalized by Jaime Moore MD on 10/06/2021 09:40 AM
[2021-07-21] MEDS: diphenhydrAMINE 50 mg Capsule PO (06:57)
--- NOTE | 2021-07-21 07:00 | XACV_ITS ---
Ht: 178 cm Wt: 113 kg BSA: 2.41 m2 Gender: Male : 1950 Any Known Allergies: No known allergies Exam Priority: Routine Procedure(s): Procedure Description: Diagnostic procedure Procedure Description: Peripheral Cath Diagnostic Procedure Procedure Description: Abdominal aortic angiography Procedure Description: Lower extremities' angiography Procedure Description: Peripheral vascular Intervention Procedure Description: PV Balloon Procedure Description: Miscellaneous Procedure Description: ACT Diagnostic Cath Status: Elective Diagnostic Findings * No disease noted in the Left Main, Left Anterior Descending, Right, or Circumflex coronary arteries. * Coronary angiography shows right dominance. PCI Status: Elective Lower Extremity Diagnostic Findings INDICATION: Critical limb ischemia. Right common iliac artery: Patent Right external iliac artery: Patent Right internal iliac artery: Patent Right common femoral artery: Patent Right profunda femoral artery: Patent Right SFA: There is moderate, calcified serial stenotic areas noted. Right popliteal artery: Patent Anterior tibial artery: Occluded TP trunk: Has distal severe stenosis. 80% narrowing. Peroneal artery: Has significant proximal vessel stenosis. Posterior tibial artery: Occluded, fills with collaterals distally. . Left common iliac artery: Patent Left external iliac artery: Patent Left internal iliac artery: Patent Left common femoral artery: Patent Left profunda femoral artery: Patent Left SFA: Diffuse mild to moderate stenosis Left popliteal artery: Patent Femoral to popliteal bypass: Patent Anterior tibial artery: Occluded. Distally fills by collaterals. TP segment: Severe distal stenosis. Peroneal artery: Occluded. Distally fills by collaterals. Posterior tibial artery: Occluded. Lower Extremity Interventional Findings Procedure detail: After getting access in the left common femoral artery, abdominal angiogram was performed. We then switched 6 Swazi short sheath with a 6 Swazi long sheath that was put in distal right external artery. Selective angiogram showed severe stenosis of TP trunk and proximal peroneal artery. IV heparin was administered. Balloon angioplasty was performed. At this time balloon was removed.Patient had significant residual stenosis, however given the size of the vessel and risk for acute closure we did not proceed with angioplasty with larger balloons. Long sheath was switched to 6 Swazi short sheath. Patient left the Terrazzo Polisher Helper in a stable condition. Conclusions Severe right tibioperoneal artery stenosis. Severe proximal peroneal artery stenosis. s/p revascularization with balloon angioplasty. No disease noted in the Left Main, Left Anterior Descending, Right, or Circumflex coronary arteries. Recommendations Continue current medications including Xarelto. Outpatient cardiology follow up in 4 weeks. Pressures Phase:Rest AO : 149 / 40 ( 78 ) @ 6:52:00 AM 131 / 41 ( 73 ) @ 7:03:00 AM 107 / 43 ( 70 ) @ 7:09:00 AM 136 / 42 ( 75 ) @ 7:20:00 AM Hemodynamic Data Phase:Rest AO : 149.0 / 40.0 ( 78.0 ) @ 6:52:00 AM 131.0 / 41.0 ( 73.0 ) @ 7:03:00 AM 107.0 / 43.0 ( 70.0 ) @ 7:09:00 AM 136.0 / 42.0 ( 75.0 ) @ 7:20:00 AM Clinical Evaluation EBL: 5mL-10mL Procedural Details Procedure Consent Obtained. Pre-Procedure Time Out. Identified patient by full name and date of as verbalized by the patient/guarantor. Does the consent match the physician's order: Yes. Accurate & Complete Informed Consent: Yes. Inpatient/Outpatient History & Physical on Chart: Yes. If H&P is completed, is and addenduem needed: Yes; If yes, is the addendum complete: N/A. Visualize and Verify Site with Patient/Guarantor: N/A. Relevant Radiology Images available: Yes. Pre-op teaching completed and patient verbalized understanding. The risks, benefits, and alternatives of sedation and/or procedure were discussed by physician. The patient agrees to continue. Procedure started. Correct patient, site and procedure confirmed by cath team. PERRLA. Strong, equal hand merchandise collector bilaterally. Lungs clear x 5 lobes. IV Site on Arrival: 20 gauge in the left anticubital. IV Fluids: 0.9% NaCl at KVO. 0 mL infused prior to laboratory apparatus glass grinder. Pre Procedural Pulses: bilateral dorsalis pedis was Doppled. Pre Procedural Pulses: bilateral posterior tibial was Doppled. Pre Procedural Pulses: bilateral radial was 2+. Oxygen started at 2liters/min via nasal canula. bilateral groins was prepped with chloroprep then draped in the usual sterile fashion. Physician notified. Baseline sample Acquired. HR: 0 BPM. Physician arrived. Physician scrubbed in. Immediate Pre-Procedure Time Out. Correct Patient: Yes; Correct Procedure: Yes; Correct Site: Yes; Correct Patient Position: Yes; Correct Supplies: Yes; Dried Flammable Prep: Yes; Blood Products Available: N/A;. Lidocaine 1% infiltrated to the left groin. Arterial access obtained with micropuncture set. A 5Fr UF catheter in over wire. Abdominal aortogram performed in AP @ 10 mL/sec for a total of 30 mL. glidewire inserted through the catheter. wire out. contrast hand injected through the catheter. glidewire inserted through the catheter. Catheter removed over the glide wire. Sheath upsized to a 6 Fr. Flexor sheath. Sheath injected in Left common femoral artery and runoff performed of the right leg. Seeker catheter inserted over the wire. glidewire out. Seeker catheter inserted over the wire and advanced to the right tibial peroneal trunk. contrast hand injected through the seeker catheter. Command wire inserted through the catheter. wire out. contrast hand injected through the seeker catheter. Command wire inserted through the catheter. seeker catheter out OTW. Inflation number : 1 A AB ARMADA 14 OTW [id number] was prepped and advanced across the Tibial Peroneal Trunk, Right , then inflated to 8 SHON for 2:00 seconds. Inflation number: 1 The AB ARMADA 14 OTW [id number] was reinflated across the Peroneal, Right, to 0 SHON for 1:40 seconds. Balloon out over wire. Seeker catheter inserted over the wire and advanced to the right tibial peroneal trunk. wire out. contrast hand injected through the seeker catheter. wire and seeker out. glidewire inserted through the sheath. The 6Fr Flexor sheath was exchanged for a 6Fr short sheath. Sheath injected in Left common femoral artery and runoff performed. Physician review of cine films. ACT drawn. Results 170 seconds. Therapeutic limits - pre-heparin administration 90-150 seconds and monitoring heparin during a vascular procedure >250 seconds. Physician scrubbed out. Sheath(s) sutured into position with 2-0 silk and sterile 4x4's and Op-site applied over the site. No oozing or signs and symptoms of hematoma noted. Arterial sheath flushed and connected to tranducer and pressure bag with heparinized saline. Post Procedure: Pulses reassessed and unchanged. PERRLA. Strong, equal hand merchandise collector bilaterally. No VTE prophylaxis required. Medication's Wasted: Lidocaine 1% = 13 mL. Medication's Wasted: Other = Fentanly 25mcg Versed 2 mg. Total IV fluids: 70 mL. Contrast type used: Visipaque 320 mgI/mL, 500 mL bottle. Complications: None. Vital chart was stopped. Estimated blood loss: 5mL-10mL. Procedure completed. Patient transferred by bed to 1st floor. Access Site Site: Left Femoral artery Sheath Size: 6 Fr Hemostasis Success: Unsuccessful Procedure Medications Start: 7:42 AM Stop: 7:42 AM Medication: Versed Amount: 1 mg Route: I.V. Start: 7:50 AM Stop: 7:50 AM Medication: Versed 1 mg and Fentanyl 25 mcg Amount: 1 Route: I.V. Start: 7:51 AM Stop: 7:51 AM Medication: Fentanyl Amount: 25 mcg Route: I.V. Start: 8:01 AM Stop: 8:01 AM Medication: Heparin Amount: 1500 units Route: I.V. Start: 8:10 AM Stop: 8:10 AM Medication: Heparin Amount: 2500 units Route: I.V. I, the attending physician, have reviewed and verified all procedure medications. Yes, all medications given per verbal order History/Risk Factors Hypertension: Yes Dyslipidemia: Yes Peripheral Arterial Disease (PAD): Yes Myocardial Infarction (AL): No Obesity: No Renal Disease: No Prior Interventions PCI: No CABG: No Valve Surgery: No Report Signatures Finalized by Jaime Moore MD on 08/06/2021 04:18 PM
--- NOTE | 2021-07-21 07:25 | P.HP_ITS ---
Same Day Surgery H&P Indication for Procedure/HPI DATE OF PROCEDURE: July 21, 2021 CHIEF COMPLAINT/INDICATIONFOR SURGICAL PROCEDURE: Critical limb ischemia/ non healing wound PREOP DIAGNOSIS: Critical limb ischemia/non healing wound PLANNED PROCEDRUE: Operation Date: 07/21/21 07:00 Proposed Procedures p Peripheral Diagnostic(Bilateral) - Jaime Moore M.D Possible peripheral intervention 71-year-old male with past medical history of diabetes mellitus, dyslipidemia, hypertension, obesity, TIA, status post aortic valve replacement which is bioprosthetic, atrial fibrillation on anticoagulation with Xarelto. 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 Recently had debridement. Abnormal LILLIAN on the right side of 0.5. CTA shows moderate to severe stenosis in the right SFA and below the knee arteries. Plan for peripheral angiogram with possible intervention ROS Const: has fatigue;Denies: fever(s) or chills Eyes: Denies: change in vision ENMT: Denies: throat pain, nasal discharge or nasal congestion Card: Dyspnea on exertion, Denies: palpitations, irregular heart rhythm, swelling of feet/ankles, lightheadedness, Resp: Has dyspnea on exertion GI: Denies: nausea, vomiting, diarrhea, hematochezia or melena : Denies: flank pain Musc: Denies: neck pain Skin/Breast: has dressing on the right foot.Pain on exertion Lit/Lymph: has easy bruising and easy bleeding Medications/Allergies* Home Medications Medication Instructions Recorded Confirmed Type duloxetine 60 mg capsule,delayed 60 mg PO DAILY 02/22/20 07/21/21 History release tamsulosin 0.4 mg capsule 0.8 mg PO BEDTIME 02/22/20 07/21/21 History Jardiance 25 mg PO QAM 05/06/21 07/21/21 History Xarelto 20 mg PO QPM 05/06/21 07/21/21 History ascorbic acid (vitamin C) [Vitamin 1,000 mg PO QAM 05/06/21 07/20/21 History C] multivitamin 1 tab PO DAILY 05/06/21 07/21/21 History spironolactone 25 mg PO QAM 05/06/21 07/21/21 History Allergies/Adverse Reactions Allergy/AdvReac Type Severity Reaction Status Date / Time No Known Allergies Allergy Verified 07/20/21 12:54 Current Medications: Generic Name Dose Route Start Last Admin Trade Name Khadijah PRN Reason Stop Dose Admin Sodium Chloride 1,000 mls @ 50 mls/hr 07/21/21 06:00 07/21/21 06:58 Sodium Chloride 0.9% IV 07/22/21 01:59 Not Given .Q20H ONE Pertinent History/Comorbid Conditions* Medical History (Updated 05/10/21 @ 00:01 by ) Acute hypokalemia Anticoagulation adequate with anticoagulant therapy Xarelto Atrial fibrillation Paroxysmal Benign prostatic hyperplasia Diabetes Dyslipidemia History of nonmelanoma skin cancer HTN (hypertension) Obesity Osteomyelitis of toe of left foot TIA (transient ischemic attack) Varicose vein of leg Surgical History (Updated 07/05/20 @ 08:59 by Keely Brothers MD) S/P AVR (aortic valve replacement) Bioprosthetic, bovine S/P cataract extraction S/P cholecystectomy Family History (Updated 02/23/20 @ 15:49 by Maria Luz Pagan RN) Diabetes Father Grandfather PATERNAL Hypertension Father Grandfather PATERNAL Social History Smoking and tobacco status: former smoker Marital status: / service: No Current occupational status: retired Current occupation: retired from [employer] Pertinent Exam Findings alert, oriented x 3, clear to auscultation bilaterally and regular rate & rhythm Conscious Sedation Assessment PATIENT ASSESSED PRIOR TO SEDATION, WITH NO CHANGE NOTED: Yes AIRWAY EVAL/ANESTHESIA PLAN: normal airway, see other exam findings, Monitored Anesthesia, Local Anesthesia, Risks, benefits & alternatives of sedation and/or procedure discussed and Patient agrees to continue as planned Recommendations Surgery/Procedure today (Peripheral angiogram and intervention) Coding Level of Care Code Acute Financial Recording Clerk for Era Hung
[2021-07-21 09:14] LABS: Glucose Point of Care 125 mg/dL (70-110)
[2021-07-21 11:31] LABS: Glucose Point of Care 233 mg/dL (70-110)
[2021-07-21] MEDS: sodium chlor 0.9% + KCl 20 mEq 20 MEQ/1,000 ML BAG 100 MEQ IV ×2 (11:58→21:14)
[2021-07-21] MEDS: insulin lispro 100 unit/1 mL SUBCUT ×2 (11:59→21:14)
[2021-07-21] MEDS: HYDROcodone-acetaminophen 5-325 mg Tablet 1 TAB PO ×2 (15:06→21:13)
--- NOTE | 2021-07-21 15:38 | PC.NURSE ---
pt received into room 112-2 from recyclable materials sorter at 0855.report received.pt is alert and awake and oriented x 4.sr w/1st degree avb on monitor.left femoral arterial sheath intact to pressurized system.no hematoma noted at site.drsg dry and intact.dopplerable dp and pt pulses noted.instructed in activity restrictions s/p femoral artery procedure..and instructed to notify staff for any bleeding,pain,numbness or for any concerns at all.pt verb understanding of instructions.
--- NOTE | 2021-07-21 15:47 | PC.NURSE ---
left arterial femoral sheath pulled at 1005.manual pressure applied and held x 20 min.no hematoma formation noted.dopplerable pt/dp pulses remain.site dressed with 2x2 gauze and secured with biocclusive drsg.pt tolerated procedure well.
[2021-07-21 16:59] LABS: Glucose Point of Care 129 mg/dL (70-110)
[2021-07-21] MEDS: rivaroxaban 10 mg Tablet 20 MG PO (17:28)
[2021-07-21] MEDS: carvedilol 25 mg Tablet PO (17:28)
--- NOTE | 2021-07-21 19:52 | PC.NURSE ---
pt up out of bed uing cam-boot and cane to ambulate.tolerated well.no hematoma formation in left groin.
--- NOTE | 2021-07-21 20:06 | PC.NURSE ---
Addendum entered by Carly Londono RN 07/21/21 20:10: Entered on wrong patient. Original Note: Patient ambulated with nurse and daughter in hallway. Right groin site WNL before and after.
[2021-07-21 20:17] LABS: Glucose Point of Care 172 mg/dL (70-110)
[2021-07-21] MEDS: tamsulosin 0.4 mg Capsule 0.8 MG PO (21:14)
[2021-07-22 00:32] VITALS: BP 163/67; PULSE 69; RESP 17
--- NOTE | 2021-07-22 02:57 | PC.NURSE ---
Shift Note Frequent safety and comfort rounds continue. Orders and/or nursing care completed as indicated. Patient monitored for response to intervention and treatment(s). Education provided includes post-cath care and restrictions. Patient and/or patient financial representative verbalized understanding. Will continue to monitor.
[2021-07-22 02:58] VITALS: BP 154/68; PULSE 66; RESP 16; TEMP 37; O2SAT 92
[2021-07-22 03:55] VITALS: PULSE 65
[2021-07-22] MEDS: losartan 50 mg Tablet 100 MG PO (05:15)
[2021-07-22] MEDS: spironolactone 25 mg Tablet PO (05:15)
--- NOTE | 2021-07-22 05:19 | PC.NURSE ---
Patient is refusing for dressing on right foot to be changed at this time. Patient states, right now I wanna sleep, let's do it later.
[2021-07-22 06:36] LABS: Glucose Point of Care 116 mg/dL (70-110)
--- NOTE | 2021-07-22 07:58 | P.DS_ITS ---
Discharge Providers Date of Admission: 07/21/2021 Date of Discharge: July 22, 2021 Attending Provider at Admission: Jaime Moore MD Attending Provider at Discharge: Jaime Moore M.D Primary Care Provider: Chon Bradshaw DO Reason for Visit Reason for Visit: 63107 for i73.9 Hospital Course Hospital Course 71-year-old male with past medical history of diabetes mellitus, dyslipidemia, hypertension, obesity, TIA, status post aortic valve replacement which is bioprosthetic, atrial fibrillation on anticoagulation with Xarelto. 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 Recently had debridement. Abnormal LILLIAN on the right side of 0.5. CTA shows moderate to severe stenosis in the right SFA and below the knee arteries. Patient underwent peripheral angiogram that showed severe TP segment stenosis and severe proximal peroneal artery stenosis. He underwent successful balloon angioplasty of TP segment and severe proximal peroneal artery stenosis with 2.0 balloon. Patient stayed in the hospital overnight and was discharged in a stable condition. Physical Exam Narrative: EXAM NARRATIVE: GENERAL: Patient is alert, awake and oriented x3. [] NECK: No jugular vein distension. [] HEENT: No cyanosis. No icterus. No pallor. [] HEART: Regular S1 and S2. No murmur, rub or gallop. [] LUNGS: Clear to auscultate bilaterally. [] ABDOMEN: Soft, nontender and nondistended. Positive bowel sounds. No guarding, rebound or tenderness. [] CENTRAL NERVOUS SYSTEM: Grossly nonfocal. [] EXTREMITIES: Lower extremities with 1+ edema bilaterally. Pulses palpable in the lower extremities, both dorsalis pedis and posterior tibial. [] Discharge Data Data Completed and Pending: Pending at discharge Category Date Time Status POWDER MONKEY request for service Routin e Exams 07/21/21 07:00 Taken Labs from last 24 hours 07/22/21 07/21/21 07/21/21 06:25 20:03 16:54 POC Glucose 116 H 172 H 129 H 07/21/21 07/21/21 11:24 09:07 POC Glucose 233 H 125 H Vitals: Last Vital Signs Temp 98.6 F 07/22/21 02:58 Pulse 65 07/22/21 03:55 Resp 16 07/22/21 02:58 BP 154/68 07/22/21 02:58 Pulse Ox 92 07/22/21 02:58 Discharge Plan Discharge Patient Disposition: Home Prescriptions: Continued duloxetine [Cymbalta] 60 mg capsule,delayed release(DR/EC) 60 mg PO DAILY RF: 0 tamsulosin [Flomax] 0.4 mg capsule 0.8 mg PO BEDTIME RF: 0 carvedilol 25 mg tablet 25 mg PO BID Qty: 180 RF: 3 potassium chloride 20 mEq tablet extended release 20 meq PO QAM Qty: 90 RF: 3 losartan 100 mg tablet 100 mg PO QAM Qty: 90 RF: 3 furosemide 40 mg tablet See Rx Instructions .ROUTE .COMPLEX Qty: 180 RF: 3 hydrocodone-acetaminophen 5-325 mg tablet 1 tab PO Q8H PRN (Reason: pain) 7 Days Qty: 21 RF: 0 Dakin's Solution 0.125 % solution 1 applic topical DAILY Qty: 473 RF: 0 multivitamin Tablet 1 tab PO DAILY RF: 0 ascorbic acid (vitamin C) [Vitamin C] 1,000 mg Tablet 1,000 mg PO QAM RF: 0 Jardiance 25 mg tablet 25 mg PO QAM RF: 0 spironolactone 25 mg tablet 25 mg PO QAM RF: 0 Xarelto 20 mg tablet 20 mg PO QPM RF: 0 insulin aspart U-100 [Novolog PenFill U-100 Insulin] 100 unit/mL cartridge 5 unit SUBCUT TID Qty: 0 RF: 0 Tresiba FlexTouch U-200 200 unit/mL (3 mL) insulin pen 20 unit SUBCUT BEDTIME Qty: 0 RF: 0 hydrocodone-acetaminophen 5-325 mg Tablet 1 tab PO Q4H PRN (Reason: Moderate To Severe Pain) Qty: 20 RF: 0 No Action cholecalciferol (vitamin D3) 25 mcg (1,000 unit) capsule 25 mcg PO DAILY RF: 0 zinc 50 mg tablet 50 mg PO DAILY RF: 0 Discharge Orders: Discharge Order (Routine); Ordered 07/22/21 Ordered By: Jaime Moore Referrals: Jaime Moore M.D [Physician] - 1 month ([facility] will contact you to schedule an follow-up with Dr. Moore in 1 month. If you haven't heard from them by Saturday. Please call ) Ama Garcia FNP [Nurse Practitioner] - 7-10 days ([facility] will contact you to schedule an follow-up appointment with Ama Garcia in 7 to 10 days. If you haven't heard from them by Saturday. Please call [phone]) Diet: Diabetic Activity: Increase activity as tolerated Patient Instructions: Peripheral Vascular Angioplasty (DC), Post Angiogram Home Care Instructions Activity Restrictions/Additional Instructions: Please do not lift more than 5 pounds of weight for the next 5 days Discharge Date/Time: 07/22/21 11:25 Discharge Attestations Time Spent in Discharge Care*: less than 30 min Quality Metrics Clinical Quality Measures During this hospital stay, did patient experience: None Coding Level of Care Code Acute Chg FW DC note
[2021-07-22] MEDS: duloxetine 60 mg Capsule PO (09:09)
[2021-07-22] MEDS: levoFLOXacin 500 mg Tablet PO (09:09)
[2021-07-22] MEDS: carvedilol 25 mg Tablet PO (09:09)
[2021-07-22] MEDS: HYDROcodone-acetaminophen 5-325 mg Tablet 1 TAB PO (09:09)
[2021-07-22 09:35] VITALS: BP 150/50; PULSE 76; RESP 15
[2021-07-22 11:00] VITALS: BP 150/61; PULSE 77; RESP 18; TEMP 37.1
== END 2021-07-22 11:25 | disposition home or self-care (01) ==
LOC: CCL 05:57 → CSU 09:03
PROVIDERS: PCP Internal Medicine; Visit Provider Internal Medicine
DX: E11.51 Type 2 diabetes mellitus with diabetic peripheral angiopathy without gangrene (principal); I70.223 Atherosclerosis of native arteries of extremities with rest pain, bilateral legs; T81.89XA Other complications of procedures, not elsewhere classified, initial encounter; Y83.5 Amputation of limb(s) as the cause of abnormal reaction of the patient, or of later complication, without mention of misadventure at the time of the procedure; Z89.421 Acquired absence of other right toe(s); I77.1 Stricture of artery; Z79.01 Long term (current) use of anticoagulants; Z95.2 Presence of prosthetic heart valve; I10 Essential (primary) hypertension; E66.9 Obesity, unspecified; Z68.35 Body mass index [BMI] 35.0-35.9, adult; Z86.73 Personal history of transient ischemic attack (TIA), and cerebral infarction without residual deficits; Z87.891 Personal history of nicotine dependence; I48.0 Paroxysmal atrial fibrillation; E78.5 Hyperlipidemia, unspecified; Z79.891 Long term (current) use of opiate analgesic
CPT/HCPCS: 36415; 36416; 37228; 75625; 75716; 82962; 85347; 96372; C1725; C1769; C1887; C1894; J1644; J1815; J2250; J3010; J7030; Q0163; Q9967

== ENCOUNTER 2021-07-25 14:59 | Outpatient (CLI) | payer MEDICARE, SELFPAY | END 2021-07-25 15:00 | disposition home or self-care (01) | LOC: WOUND 15:00 | PROVIDERS: PCP Internal Medicine; Visit Provider Thoracic Surgery (Cardiothoracic Vascular Surgery) | DX: I96 Gangrene, not elsewhere classified (principal); E11.621 Type 2 diabetes mellitus with foot ulcer; L97.512 Non-pressure chronic ulcer of other part of right foot with fat layer exposed; Z89.421 Acquired absence of other right toe(s); Z87.891 Personal history of nicotine dependence | CPT/HCPCS: 11042 ==

== ENCOUNTER → 2021-08-01 14:59 | Outpatient (BNVA) | payer MEDICARE, SELFPAY | PROVIDERS: PCP Internal Medicine; Visit Provider Nurse Practitioner Family | DX: I73.9 Peripheral vascular disease, unspecified (principal) | CPT/HCPCS: 80048 ==

== ENCOUNTER 2021-08-02 14:41 | Outpatient (CLI) | payer MEDICARE, SELFPAY | END 2021-08-02 14:42 | disposition home or self-care (01) | LOC: WOUND 14:43 | PROVIDERS: PCP Internal Medicine; Visit Provider Thoracic Surgery (Cardiothoracic Vascular Surgery) | DX: E11.621 Type 2 diabetes mellitus with foot ulcer (principal); L97.513 Non-pressure chronic ulcer of other part of right foot with necrosis of muscle; Z89.421 Acquired absence of other right toe(s); Z87.891 Personal history of nicotine dependence | CPT/HCPCS: 11043 ==

== ENCOUNTER 2021-08-09 13:16 | Outpatient (CLI) | payer MEDICARE, SELFPAY | END 2021-08-09 13:17 | disposition home or self-care (01) | LOC: WOUND 13:17 | PROVIDERS: PCP Internal Medicine; Visit Provider Thoracic Surgery (Cardiothoracic Vascular Surgery) | DX: E11.621 Type 2 diabetes mellitus with foot ulcer (principal); L97.513 Non-pressure chronic ulcer of other part of right foot with necrosis of muscle; Z87.891 Personal history of nicotine dependence; Z89.421 Acquired absence of other right toe(s) | CPT/HCPCS: 11043 ==

== ENCOUNTER 2021-08-16 13:45 | Outpatient (CLI) | payer MEDICARE, SELFPAY | END 2021-08-16 13:46 | disposition home or self-care (01) | LOC: WOUND 13:46 | PROVIDERS: PCP Internal Medicine; Visit Provider Thoracic Surgery (Cardiothoracic Vascular Surgery) | DX: E11.621 Type 2 diabetes mellitus with foot ulcer (principal); L97.513 Non-pressure chronic ulcer of other part of right foot with necrosis of muscle; Z89.421 Acquired absence of other right toe(s); Z87.891 Personal history of nicotine dependence | CPT/HCPCS: 11043; 97605; A6250 ==

== ENCOUNTER 2021-08-23 13:12 | Outpatient (CLI) | payer MEDICARE, SELFPAY | END 2021-08-23 13:13 | disposition home or self-care (01) | LOC: WOUND 13:13 | PROVIDERS: PCP Internal Medicine; Visit Provider Nurse Practitioner Family | DX: E11.621 Type 2 diabetes mellitus with foot ulcer (principal); L97.519 Non-pressure chronic ulcer of other part of right foot with unspecified severity; I10 Essential (primary) hypertension; Z89.421 Acquired absence of other right toe(s); Z87.891 Personal history of nicotine dependence | CPT/HCPCS: 97605; A6237; A6250 ==

== ENCOUNTER 2021-08-24 13:55 | Outpatient (CLI) | payer MEDICARE, SELFPAY ==
[2021-08-24 15:26] LABS: INR 1.46 (0.8-1.2)
== END 2021-08-24 13:56 | disposition home or self-care (01) ==
PROVIDERS: PCP Internal Medicine; Visit Provider Surgery
DX: Z79.01 Long term (current) use of anticoagulants (principal)
CPT/HCPCS: 85610

== ENCOUNTER 2021-08-30 14:20 | Outpatient (CLI) | payer MEDICARE, SELFPAY | END 2021-08-30 14:21 | disposition home or self-care (01) | LOC: WOUND 14:20 | PROVIDERS: PCP Internal Medicine; Visit Provider Nurse Practitioner Family | DX: E11.621 Type 2 diabetes mellitus with foot ulcer (principal); L97.512 Non-pressure chronic ulcer of other part of right foot with fat layer exposed; Z89.421 Acquired absence of other right toe(s); Z87.891 Personal history of nicotine dependence | CPT/HCPCS: 11042 ==

== ENCOUNTER 2021-09-05 15:21 | Outpatient (CLI) | payer MEDICARE, SELFPAY | END 2021-09-05 15:22 | disposition home or self-care (01) | LOC: WOUND 15:24 | PROVIDERS: PCP Internal Medicine; Visit Provider Nurse Practitioner Family | DX: T81.89XA Other complications of procedures, not elsewhere classified, initial encounter (principal); Y83.8 Other surgical procedures as the cause of abnormal reaction of the patient, or of later complication, without mention of misadventure at the time of the procedure; E11.9 Type 2 diabetes mellitus without complications; Z89.421 Acquired absence of other right toe(s); Z87.891 Personal history of nicotine dependence | CPT/HCPCS: 11042; 97605; A6237; A6250 ==

== ENCOUNTER 2021-09-12 14:26 | Outpatient (RCR) | payer MEDICARE, SELFPAY | END 2021-10-06 23:59 | disposition home or self-care (01) | LOC: WOUND 14:26 | PROVIDERS: PCP Internal Medicine; Visit Provider Emergency Medicine | DX: E11.621 Type 2 diabetes mellitus with foot ulcer (principal); L97.516 Non-pressure chronic ulcer of other part of right foot with bone involvement without evidence of necrosis; Z89.421 Acquired absence of other right toe(s); Z87.891 Personal history of nicotine dependence | CPT/HCPCS: 11042 ==

== ENCOUNTER → 2021-09-14 08:04 | Day surgery (SDC) | payer MEDICARE, SELFPAY ==
[2021-09-14] VITALS (9 sets, daily range): BP systolic 118–154; BP diastolic 43–69; PULSE 62–75; RESP 18; TEMP 36.2–36.8; O2SAT 96–99; BMI 32.8
[2021-09-14 09:10] LABS: Hematocrit 25.9 % (42.0-52.0)
[2021-09-14] MEDS: sodium chloride 0.9% (100 ml) 200 ML 30 ML (10:50)
== END ==
PROVIDERS: PCP Internal Medicine; Visit Provider Internal Medicine
DX: D50.9 Iron deficiency anemia, unspecified (principal)
CPT/HCPCS: 36430; 85014; 85018; 86850; 86900; 86920; P9016

== ENCOUNTER 2021-09-16 15:39 | Outpatient (CLI) | payer MEDICARE, SELFPAY ==
--- NOTE | 2021-09-16 16:08 | XRR_ITS ---
PROCEDURE INFORMATION: Exam: XR Right Foot Exam date and time: 09/16/2021 4:08 PM Age: 71 years old Clinical indication: Condition or disease; Other: Diabetes/amputation; Prior surgery; Surgery date: 1-6 months; Patient HX: Toe amputation looking for infection; Additional info: Foot ulcer TECHNIQUE: Imaging protocol: XR Right foot. Views: 3 or more views. COMPARISON: CT foot RT w con [id number] 05/06/2021 2:33 PM FINDINGS: Bones/joints: Erosion of the 3rd metatarsal distal head and proximal 3rd proximal phalanx suggestive of underlying osteomyelitis. Mild erosion seen along the lateral aspect of the 2nd metatarsal head may reflect underlying osteomyelitis. Amputation at the level of the 4th metatarsal distal diaphysis. Soft tissues: Soft tissue swelling seen about the 2nd and 3rd phalanges may reflect underlying cellulitis. XR/XR foot RT min 3V* [id number] IMPRESSION: 1. Erosion of the 3rd metatarsal distal head and proximal 3rd proximal phalanx suggestive of underlying osteomyelitis. 2. Mild erosion seen along the lateral aspect of the 2nd metatarsal head may reflect underlying osteomyelitis. 3. Amputation at the level of the 4th metatarsal distal diaphysis. 4. Soft tissue swelling seen about the 2nd and 3rd phalanges may reflect underlying cellulitis.
== END 2021-09-16 15:40 | disposition home or self-care (01) ==
LOC: RAD 15:42
PROVIDERS: PCP Internal Medicine; Visit Provider Emergency Medicine
DX: E11.621 Type 2 diabetes mellitus with foot ulcer (principal); Z89.421 Acquired absence of other right toe(s); M85.871 Other specified disorders of bone density and structure, right ankle and foot
CPT/HCPCS: 73630

== ENCOUNTER 2021-09-19 19:38 | Inpatient (IN) | payer MEDICARE, SELFPAY ==
--- NOTE | 2021-09-19 20:22 | PC.NURSE ---
Patient arrived via w/c / DA from Dr Esparza. Spoke with charge nurse Judy RN/ notified to call Dr Esparza for orders. Dr Esparza verbalized to call hospitalist for orders as he had spoken with prior to admission. Dr Claros notified of patient's arrival and need for orders. She verbalized she would put in orders shortly.
[2021-09-19 21:34] VITALS: BP 99/54; PULSE 79; RESP 18; TEMP 37.2; O2SAT 96
--- NOTE | 2021-09-19 21:51 | PC.NURSE ---
Patient updated waiting on orders to be placed. Charge nurse Judy also notified.
[2021-09-19 22:00] VITALS: BMI 32.7
--- NOTE | 2021-09-19 22:19 | PC.NURSE ---
Spoke with charge nurse regarding orders/ instructed to call hospitalist. Dr Claros called / no answer/ left message regarding needing medication for pain and orders.
--- NOTE | 2021-09-19 22:33 | CTR_ITS ---
PROCEDURE INFORMATION: Exam: CT Right Lower Extremity With Contrast, Foot Exam date and time: 09/19/2021 10:33 PM Age: 71 years old Clinical indication: Cellulitis; Foot; Right; Additional info: Osteomyelitis, cellulitis, evaluate for abscess, cellulitis, underlying possible osteo, S/P debridement TECHNIQUE: Imaging protocol: CT of the Right lower extremity with intravenous contrast was performed. Exam focused on the foot. Radiation optimization: All CT scans at this facility use at least one of these dose optimization techniques: automated exposure control; mA and/or kV adjustment per patient size (includes targeted exams where dose is matched to clinical indication); or iterative reconstruction. Contrast material: OMNI 300; Contrast volume: 75 ml; Contrast route: INTRAVENOUS (IV); COMPARISON: CT foot RT w con [id number] 05/06/2021 2:33 PM RADIATION DOSE METRICS: Total DLP (mGy-cm): 227.41 FINDINGS: Bones/joints: Bones are diffusely demineralized. No acute fractures are identified. Fourth digit phalanges are amputated. The most proximal aspect of the 3rd digit proximal phalanx is eroded. The distal 3rd metatarsal is eroded. There may be a small area of erosion involving the lateral margin of the distal 2nd metatarsal bone. Patchy periosteal reaction changes are noted involving 2nd, 3rd, 4th metatarsal bones. Soft tissues: Diffuse subcutaneous soft tissue edema changes. Peripherally enhancing loculated fluid collection in the plantar soft tissues of the forefoot in between the distal 3rd and 4th metatarsal bones which measures 1.8 cm transverse by 2.3 cm longitudinal by 1.9 cm craniocaudad height. Vasculature: Diffuse atherosclerotic wall plaques. CT/CT foot RT w con [id number] IMPRESSION: 1. Soft tissue abscess on the plantar side of the forefoot in between the distal aspects of the 3rd and 4th metatarsal bones. 2. Diffuse cellulitis. 3. Query osteomyelitis changes involving 2nd, 3rd, 4th metatarsal bones and 3rd digit proximal phalanx. Resolution on CT imaging is limited.
--- NOTE | 2021-09-19 22:39 | CTR_ITS ---
PROCEDURE INFORMATION: Exam: CT Right Lower Extremity Without Contrast; Lower Leg Exam date and time: 09/19/2021 10:39 PM Age: 71 years old Clinical indication: Cellulitis; Foot; Right; Additional info: Foot osteo, now also cellulitis tracking up right leg TECHNIQUE: Imaging protocol: CT of the Right lower extremity without contrast was performed. Exam focused on the lower leg. Radiation optimization: All CT scans at this facility use at least one of these dose optimization techniques: automated exposure control; mA and/or kV adjustment per patient size (includes targeted exams where dose is matched to clinical indication); or iterative reconstruction. COMPARISON: CT foot RT w con [id number] 05/06/2021 2:33 PM RADIATION DOSE METRICS: Total DLP (mGy-cm): 1062.83 FINDINGS: Bones/joints: No periosteal reaction. No osteolytic bone lesion. No fractures. Knee joint alignment is anatomic. Soft tissues: Diffuse, rather extensive subcutaneous soft tissue edema changes throughout the imaged right lower extremity. Negative for loculated, peripherally enhancing soft tissue fluid collection. Negative for soft tissue gas. Vasculature: Extensive calcified atherosclerotic wall plaques throughout the right lower extremity tibioperoneal arteries which are otherwise poorly assessed. Probable multifocal areas of significant stenosis and possibly short segment occlusions throughout the tibioperoneal arteries. CT/CT lower leg RT w con [id number] IMPRESSION: 1. Diffuse cellulitis changes of the imaged right lower extremity. No soft tissue gas or drainable abscess. 2. Negative for osteomyelitis in the tibia or the fibula.
--- NOTE | 2021-09-19 22:51 | PM.HP ---
Providers/Chief Complaint Admitting Physician: Carlton Simpson MD Primary Care Provider: Chon Bradshaw DO Chief Complaint: Cellulitis History of Present Illness Surendra Roland is a 71 year old male past medical history of diabetes mellitus, dyslipidemia, hypertension, obesity, TIA, status post aortic valve replacement which is bioprosthetic, atrial fibrillation on anticoagulation with Xarelto. In may 2021, he underwent amputation of right fourth toe till the level of the distal fourth metatarsal bone for acute gangrenous toe, cellulitis and osteomyelitis of proximal phalynx. Wound cx with MSSA at the time. Pathology revealed clear amputation margins with viable bone. Arterial disease was noted with a diminished LILLIAN 0.5 on preliminary testing. He was discharged with 14 days of doxycycline and is being followed by [facility]. On 07/21/2021 he underwent peripheral angiogram and had balloon angioplasty of right tibial peroneal trunk. Post amputation wound healing had remained poor though there was some improvement starting to be noted ~ 2 weeks post angioplasty. He had a wound vac placed in Aug 2021. Starting approximtely 10 days ago, it became difficult to keep vac adherent by home health, increased adherent fibrous material was noted, on follow up today he was noted to have active cellulitis affecting his right foot extending to the level of right calf. x ray of the foot revealed destruction of 3rd metatarsal and mid shaft concerning for ongoing osteomyelitis. He underwent foot debridement today, cx was taken at [facility] and patient referred to [facility] for iv abx and imaging to evalute for any underlying undrained abscesses. Denies fever, chills Review of Systems General: Reports: 10 or more systems reviewed and unremarkable except in HPI and below Const: Denies: fever(s), chills or body aches Eyes: Denies: change in vision, blurry vision or photophobia ENMT: Reports: hoarseness; Denies: throat pain, enlarged tonsils, odynophagia or nasal congestion Card: Denies: chest pain, palpitations, irregular heart rhythm, edema, swelling of feet/ankles, lightheadedness, pre-syncope, dyspnea on exertion or orthopnea Resp: Denies: dyspnea, productive cough, non-productive cough, wheezing, stridor, pain on inspiration, change in phlegm color, hemoptysis or chest congestion GI: Denies: abdominal pain, nausea, vomiting, hematemesis, coffee ground emesis, dysphagia, heartburn, diarrhea, constipation, GI cramping, change in stool character, hematochezia or melena : Denies: flank pain, dysuria, urinary frequency, urinary urgency, urinary hesitancy or hematuria Musc: Denies: neck pain, back pain, extremity pain, joint swelling, joint warmth or deformity Neuro: Denies: headache(s), numbness in extremities, weakness in extremities, sensory changes, difficulty walking, frequent falls, dizziness, vertigo, behavioral changes, Slurred speech present or seizure-like activity Psych: Denies: anxiety, depression, suicidal ideation or homicidal ideation Endo: Denies: polyuria, polydipsia, tired all the time, cold intolerance or hot flashes Lit/Lymph: Denies: easy bruising or easy bleeding Medications/Allergies Home Medications Medication Instructions Recorded Confirmed Last Taken Type duloxetine 60 mg capsule,delayed 60 mg PO DAILY 02/22/20 09/14/21 07/19/21 21:00 History release tamsulosin 0.4 mg capsule 0.8 mg PO BEDTIME 02/22/20 09/14/21 07/19/21 21:00 History carvedilol 25 mg tablet 25 mg PO BID #180 tab 01/23/21 09/14/21 07/21/21 05:00 Rx Jardiance 25 mg PO QAM 05/06/21 09/14/21 07/20/21 08:00 History Xarelto 20 mg PO QPM 05/06/21 09/14/21 07/18/21 21:00 History ascorbic acid (vitamin C) [Vitamin 1,000 mg PO QAM 05/06/21 09/14/21 07/21/21 05:00 History C] multivitamin 1 tab PO DAILY 05/06/21 09/14/21 07/20/21 12:00 History spironolactone 25 mg PO QAM 05/06/21 09/14/21 07/20/21 05:00 History losartan 100 mg tablet 100 mg PO QAM #90 tab 06/30/21 09/14/21 07/20/21 12:00 Rx potassium chloride 20 mEq 20 meq PO QAM #90 tab 06/30/21 09/14/21 07/20/21 12:00 Rx tablet,extended release hydrocodone 5 mg-acetaminophen 325 1 tab PO Q8H PRN 7 Days #21 tab 07/11/21 09/14/21 09/14/21 Rx mg tablet sodium hypochlorite 0.125 % 1 applic TOPICAL DAILY #473 ml 07/11/21 09/14/21 07/20/21 Rx solution cholecalciferol (vitamin D3) 25 25 mcg PO DAILY 08/01/21 09/14/21 Unknown History mcg (1,000 unit) capsule zinc 50 mg tablet 50 mg PO DAILY 08/01/21 09/14/21 Unknown History Novolog PenFill U-100 Insulin 20 unit SUBCUT TID 09/14/21 09/14/21 Unknown History Tresiba FlexTouch U-200 75 unit SUBCUT BEDTIME 09/14/21 09/14/21 Unknown History cholestyramine (with sugar) 4 g PO DAILY 09/14/21 09/14/21 Unknown History furosemide 80 mg PO DAILY 09/14/21 09/14/21 Unknown History isosorbide mononitrate 30 mg PO DAILY 09/14/21 09/14/21 Unknown History sulfamethoxazole 800 1 tab PO BID #10 tab 09/19/21 Unknown Rx mg-trimethoprim 160 mg tablet Allergies Allergy/AdvReac Type Severity Reaction Status Date / Time No Known Allergies Allergy Verified 08/29/21 14:27 PFSH Acute PFSH: Medical History Acute hypokalemia Anticoagulation adequate with anticoagulant therapy Xarelto Atrial fibrillation Paroxysmal Benign prostatic hyperplasia Diabetes Dyslipidemia History of nonmelanoma skin cancer HTN (hypertension) Obesity Osteomyelitis of toe of left foot TIA (transient ischemic attack) Varicose vein of leg Surgical History S/P AVR (aortic valve replacement) Bioprosthetic, bovine S/P cataract extraction S/P cholecystectomy Family History Father Diabetes Hypertension Grandfather Diabetes PATERNAL Hypertension PATERNAL Social History Smoking and tobacco status: former smoker Alcohol intake: former Marital status: / service: No Current occupational status: retired 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 Vitals/I&O/Wt Last Vital Signs Temp 98.9 F 09/19/21 21:34 Pulse 79 09/19/21 21:34 Resp 18 09/19/21 21:34 BP 99/54 09/19/21 21:34 Pulse Ox 96 09/19/21 21:34 Physical Exam Narrative: EXAM NARRATIVE: General: No acute distress, AO x3 HEENT: PERRLA, pupils bilaterally equal and reactive, pallors not present Chest: Normal vesicular breath sounds, no added sounds, equal good air entry bilaterally CVS: S1-S2 regular, no murmurs, no tachycardia, no gallops, no rubs Abdomen: Soft, nontender, no organomegaly, bowel sounds present Neuro: No focal deficits, no facial deformity, AO x3, power 5/5 in all limbs Extremities: ulcer over base of right 4th toe at previous amputation site, cellulitis over right foot extending up to calf Data Micro: Dariel: 05/06/21 Tissue Cult GS Organism 1 Staphylococcus aureus Growth HEAVY S aureus M.I.C. RX --------- ------ * Amoxicillin/Clavulanate <=4/2 S * Ampicillin >8 R * Ampicillin/Sulbactam <=8/4 S * Ceftriaxone <=8 S * Ciprofloxacin <=1 S * Clindamycin <=0.5 S * Erythromycin <=0.5 S * Gentamicin <=4 S * Levofloxacin <=1 S * Linezolid 4 S * Oxacillin 0.5 S * Penicillin >8 R * Rifampin <=1 S * Tetracycline <=4 S * Trimethoprim/Sulfamethoxazole <=0.5/9.5 S Vancomycin 2 S Daptomycin 1 S Other Xray: Radiologist's impression: Date of Service: 09/16/21 Procedure(s): XR foot RT min 3V* [id number] IMPRESSION: 1. Erosion of the 3rd metatarsal distal head and proximal 3rd proximal phalanx suggestive of underlying osteomyelitis. 2. Mild erosion seen along the lateral aspect of the 2nd metatarsal head may reflect underlying osteomyelitis. 3. Amputation at the level of the 4th metatarsal distal diaphysis. 4. Soft tissue swelling seen about the 2nd and 3rd phalanges may reflect underlying cellulitis. Other data: 07/21/21 peripheral angiogram Conclusions Severe right tibioperoneal artery stenosis. Severe proximal peroneal artery stenosis. s/p revascularization with balloon angioplasty. No disease noted in the Left Main, Left Anterior Descending, Right, or Circumflex coronary arteries. Recommendations Continue current medications including Xarelto. Outpatient cardiology follow up in 4 weeks. A&P Assessment and plan (1) Osteomyelitis of right foot: Status: Acute Qualifiers: Osteomyelitis type: chronic, with draining sinus Qualified Code(s): M86.471 - Chronic osteomyelitis with draining sinus, right ankle and foot (2) PVD (peripheral vascular disease): Status: Acute (3) Atrial fibrillation: Status: Acute Qualifiers: Atrial fibrillation type: longstanding persistent Qualified Code(s): I48.11 - Longstanding persistent atrial fibrillation (4) Chronic anticoagulation: Status: Chronic (5) S/P AVR (aortic valve replacement): Status: Chronic (6) Diabetes: Status: Chronic Qualifiers: Diabetes mellitus type: type 2 Diabetes mellitus remote computer terminal operator insulin use: with remote computer terminal operator use Diabetes mellitus complication status: with circulatory complication Diabetes mellitus complication detail: with other circulatory complications Qualified Code(s): E11.59 - Type 2 diabetes mellitus with other circulatory complications; Z79.4 - remote computer terminal operator (current) use of insulin Additional A&P Information Patient with h/o acute gangrene and osteomyelitis of right foot/4th toe in 05/2021, s/p amputation with clear margins at the time, wound complicated by poor wound healing related to peripheral vascular disease, diabetes mellitus, s/p peripheral intervention in 07/2021 now p/w right foot cellulitis and worsening wound infection with changes extending into calf. Foot X ray now with osteomyelitis now involving 2nd and third metatarsal bones. Admit to med/surg in view of worsening wound infection, active cellulitis and underlying osteomyelitis as noted on imaging. Check CBC,CMP, ESR, CRP, Blood culture Start empiric treatment with Zosyn and vancomycin Wound debridement performed at [facility] today- cx from debridement pending at this time. Prior wound cx with MSSA from April and May 2021. CT right foot and leg w/contrast due to concern for underlying abscess additionally Hold Xarelto for now in case further debridement needed in the next 24-48 hrs. If prolonged interruption anticipated may need bridging with heparin vs lovenox. COVID PCR for pre surgical testing Insulin sliding scale for DM management Continue home dose of hydrocodone/APAP for pain management H/o A fib, currently rate controlled, continue carvedilol h/o CHF, continue home dose of Lasix, Imdur, aldactone Holding lisinpril for now given BP 99/54 Full code DVT ppx: Patient on xarelto, which will likely be resumed if no plans for surgical intervention in the next 24-[address] results. Attestations Medical Necessity Statement*: Anticipate >2midnight admission for management of cellulitis, osteomyelitis, need for iv abx anf further imaging studies Coding Level of Care Code Acute Automobile Damage Appraiser for Chg Fwd Diagnoses Osteomyelitis of right foot M86.471 Osteomyelitis type: chronic, with draining sinus PVD (peripheral vascular disease) I73.9 Atrial fibrillation I48.11 Atrial fibrillation type: longstanding persistent Chronic anticoagulation Z79.01 S/P AVR (aortic valve replacement) Z95.2 Diabetes E11.59; Z79.4 Diabetes mellitus type: type 2 Diabetes mellitus remote computer terminal operator insulin use: with [facility] use Diabetes mellitus complication status: with circulatory complication Diabetes mellitus complication detail: with other circulatory complications
[2021-09-19] MEDS: HYDROcodone-acetaminophen 5-325 mg Tablet 1 TAB PO (23:07)
[2021-09-19] MEDS: iohexol 300 mg/mL 100 mL Btl IV ×2 (23:37→23:38)
[2021-09-20] VITALS: BP 118/64; PULSE 74; RESP 18; TEMP 36.8; O2SAT 98
[2021-09-20] MEDS: vancomycin 1,500 MG/300 ML PIGGYBACK 200 MG IV ×2 (02:04→15:11)
[2021-09-20 02:41] LABS: Basophils # 0.1 10^3/uL (0.0-0.1); Basophils % 0.4 %; Eosinophils # 0.3 10^3/uL (0.0-0.8); Eosinophils % 2.7 %; Hemoglobin 8.8 g/dL (11.7-16.6); Lymphocytes # 1.5 10^3/uL (0.8-4.8); Lymphocytes % 13.4 %; Mean Corpuscular HGB Conc 29.3 g/dL (30.0-36.0); Mean Corpuscular Hemoglobin 23.5 pg (28.0-34.0); Mean Corpuscular Volume 80.2 fl (80-94); Mean Platelet Volume 10.1 fL (7.4-10.4); Monocytes # 1.6 10^3/uL (0.2-0.9); Monocytes % 14.1 %; Neutrophils # 7.68 10^3/uL (1.8-7.7); Nucleated Red Blood Cells % 0 %; Platelet Count 302 10^3/cmm (130-400); Red Blood Count 3.74 10^6/uL (4.1-5.3); Red Cell Distribution Width 16.3 % (12.1-15.1); White Blood Count 11.1 10^3/uL (4.0-10.0)
[2021-09-20 03:02] LABS: C Reactive Protein 43.8 mg/L (0.0-4.9)
[2021-09-20 03:03] LABS: Alanine Aminotransferase 12 U/L (0-41); Albumin Level 3.3 g/dL (3.5-5.2); Alkaline Phosphatase 86 IU/L (40-130); Anion Gap 16.7 (5-19); Aspartate Amino Transferase 16 U/L (0-40); Blood Urea Nitrogen 9 mg/dL (8-23); Carbon Dioxide 23 mmol/L (22-29); Chloride 99 mmol/L (98-107); Globulin 3.1 g/dL (1.3-4.6); Glucose 132 mg/dL (65-115); Osmolality Calculated 281 mOsm/kg (285-295); Potassium 3.7 mmol/L (3.5-5.1); Sodium 135 mmol/L (136-145); Total Bilirubin 0.8 mg/dL (0.15-1.2); Total Protein 6.4 g/dL (6.6-8.7)
[2021-09-20] MEDS: piperacillin-tazobactam 3.375 GM in sodium chloride 0.9% (plus) 50 ML IV ×3 (03:26→21:35)
[2021-09-20 04:00] VITALS: BP 114/59; PULSE 68; RESP 17; TEMP 36.7; O2SAT 97
--- NOTE | 2021-09-20 04:58 | PC.PHAR ---
Pharmacokinetic dosing service Date: 09/20/21 Time: 0500 Objective: Patient: Surendra Roland Floor: [id number] Age: 71 yo Serum creatinine: 1.1 mg/dL Height: 70.0 Inches Weight (kg): 103.419 Diagnosis: Relevant medical/social history: Cultures and sensitivities: Other labs: Assessment: IBW (kg): 73.00 Dosing wt(kg): 103.419 Estimated Creatinine clearance (ml/min): 62.7 CRCL method: Cockcroft and Gault using ibw(default). Drug selected: Vancomycin Loading dose (mg): 0 Vd (liters): 93.1 (factor used: 0.9 L/kg) Johnny (hr-1): 0.056 Half life (hrs): 12.38 Recommended dose: 1500 mg Interval: 12 hrs Infusion time (hrs): 1.5 Predicted peak (mcg/mL): 31.6 Predicted trough (mcg/mL): 17.55 Total body weight is being used for vancomycin dosing. Renal function is stable [ ] /unstable [ ] Recommendations: Give Vancomycin 1500 mg q 12 hrs with an expected Cpeak of 31.6 mcg/ml and an expected Ctrough of 17.55 mcg/ml Renal dosing of other antibiotics (review renal dosing of other medications and list guidelines here): Thank you for the consult, will continue to follow. Signature: Fidelina White [facility]
[2021-09-20 05:05] LABS: Erythrocyte Sedimentation Rate 34 mm/hr (0-10)
[2021-09-20] MEDS: HYDROcodone-acetaminophen 5-325 mg Tablet 1 TAB PO ×2 (06:46→16:47)
[2021-09-20] MEDS: spironolactone 25 mg Tablet PO (06:46)
[2021-09-20 06:49] LABS: Glucose Point of Care 94 mg/dL (70-110)
[2021-09-20 06:49] LABS: Glucose Point of Care 79 mg/dL (70-110)
--- NOTE | 2021-09-20 06:50 | PC.NURSE ---
Patient does not have medication list with him/ family is suppose to bring in cell phone today / he has list on there.
[2021-09-20 07:26] VITALS: BP 128/55; PULSE 70; RESP 18; TEMP 36.6; O2SAT 95
[2021-09-20] MEDS: FUROsemide 40 mg Tablet 80 MG PO (09:27)
[2021-09-20] MEDS: isosorbide mononitrate ER 30 mg Tablet PO (09:27)
[2021-09-20] MEDS: duloxetine 60 mg Capsule PO (09:27)
[2021-09-20] MEDS: pantoprazole DR 40 mg Tablet PO (09:27)
[2021-09-20] MEDS: carvedilol 25 mg Tablet PO ×2 (09:27→17:33)
[2021-09-20 11:22] VITALS: BP 90/58; PULSE 58; RESP 16; TEMP 36.5; O2SAT 91
[2021-09-20 12:02] LABS: Glucose Point of Care 206 mg/dL (70-110)
[2021-09-20] MEDS: insulin lispro 100 unit/1 mL SUBCUT ×2 (12:16→21:36)
--- NOTE | 2021-09-20 13:23 | PM.PN ---
Subjective Subjective: Interval history: No events overnight. Patient sitting comfortably in chair during examination having his lunch. Denies any nausea vomiting, headache. Worried that he might have to lose his foot. Has remained hemodynamically stable and afebrile. Currently on room air. Vitals/I&O/Wt Last Vital Signs Temp 97.7 F 09/20/21 11:22 Pulse 58 L 09/20/21 11:22 Resp 16 09/20/21 11:22 BP 90/58 09/20/21 11:22 Pulse Ox 91 09/20/21 11:22 09/19/21 09/20/21 09/20/21 22:59 06:59 14:59 Intake Total 780 / 780 50 / 50 Output Total 550 / 550 400 / 400 Balance 230 / 230 -350 / -350 Weight last 48 hrs Weight 103.419 kg Physical Exam Narrative: EXAM NARRATIVE: General: No acute distress, AO x3 HEENT: PERRLA, pupils bilaterally equal and reactive, pallors not present Chest: Normal vesicular breath sounds, no added sounds, equal good air entry bilaterally CVS: S1-S2 regular, no murmurs, no tachycardia, no gallops, no rubs Abdomen: Soft, nontender, no organomegaly, bowel sounds present Neuro: No focal deficits, no facial deformity, AO x3, power 5/5 in all limbs Extremities: ulcer over base of right 4th toe at previous amputation site, cellulitis over right foot extending up to calf Data : 09/20/21 02:19 09/20/21 02:19 Micro: Microbiology 09/20/21 02:23 Blood Culture - Preliminary Blood SPECIMEN COLLECTED 09/20/21 02:19 Blood Culture - Preliminary Blood SPECIMEN COLLECTED A&P Assessment and plan (1) Abscess: Status: Acute (2) Osteomyelitis of right foot: Status: Acute Qualifiers: Osteomyelitis type: chronic, with draining sinus Qualified Code(s): M86.471 - Chronic osteomyelitis with draining sinus, right ankle and foot (3) PVD (peripheral vascular disease): Status: Acute (4) Atrial fibrillation: Status: Acute Qualifiers: Atrial fibrillation type: longstanding persistent Qualified Code(s): I48.11 - Longstanding persistent atrial fibrillation (5) Chronic anticoagulation: Status: Chronic (6) S/P AVR (aortic valve replacement): Status: Chronic (7) Diabetes: Status: Chronic Qualifiers: Diabetes mellitus type: type 2 Diabetes mellitus [facility] insulin use: with long term care social worker use Diabetes mellitus complication status: with circulatory complication Diabetes mellitus complication detail: with other circulatory complications Qualified Code(s): E11.59 - Type 2 diabetes mellitus with other circulatory complications; Z79.4 - [facility] (current) use of insulin (8) Congestive heart failure: Status: Acute Qualifiers: Heart failure chronicity: acute Heart failure type: diastolic Qualified Code(s): I50.31 - Acute diastolic (congestive) heart failure (9) HTN (hypertension): Status: Chronic Additional A&P Information Abscess/osteomyelitis of right foot: As seen on CT foot. History of MSSA from wound culture in the past. For now continue with vancomycin and Zosyn. We will follow up blood culture, wound culture from wound care center from date 09/19. Check MRSA swab. Patient would need localized I&D at the least versus possible amputation. Unfortunately podiatry not available till early October, patient's outpatient wound care surgeon not available this week. Will consult surgery for further recommendations. For now hold off on Xarelto. Congestive heart failure/ History of aortic valve replacement/ History of atrial fibrillation on chronic anticoagulation with Xarelto: Last echocardiogram from June 2020 shows an EF 55% with grade 2 diastolic dysfunction, moderately elevated filling pressures, normal positioning bioprosthetic valve. Patient seems euvolemic. Continue with home dose of carvedilol, losartan. Continue with Lasix 40 mg daily. Hypertension: Goal blood pressure less than 140/90 mmHg. Type 2 diabetes mellitus: Hold OHA's. Insulin sliding scale. Continue other chronic medication including duloxetine, Imdur, Protonix. Full code. Cardiac carb consistent diet. Hold off Xarelto for possible OR. Protonix for PUD prophylaxis. Attestations Medical Necessity Statement*: Requires further hospitalization for management of localized right foot abscess, osteomyelitis in setting of peripheral vascular disease Time Spent in Patient Care: Greater than 35 minutes (>than 50% of time spent in counselling and/or direct pt care on unit). Coding Level of Care Code Acute Emergency Room Specialist for g Fwd Diagnoses Abscess L02.91 Osteomyelitis of right foot M86.471 Osteomyelitis type: chronic, with draining sinus PVD (peripheral vascular disease) I73.9 Atrial fibrillation I48.11 Atrial fibrillation type: longstanding persistent Chronic anticoagulation Z79.01 S/P AVR (aortic valve replacement) Z95.2 Diabetes E11.59; Z79.4 Diabetes mellitus type: type 2 Diabetes mellitus long term care social worker insulin use: with [facility] use Diabetes mellitus complication status: with circulatory complication Diabetes mellitus complication detail: with other circulatory complications Congestive heart failure I50.31 Heart failure chronicity: acute Heart failure type: diastolic HTN (hypertension) I10
[2021-09-20 14:02] LABS: Coronavirus Test Green County Not Detected
[2021-09-20 15:32] VITALS: BP 126/46; PULSE 68; RESP 16; TEMP 36.6; O2SAT 97
--- NOTE | 2021-09-20 15:51 | PM.CONSULT ---
Providers/Reason For Consult Consulting Physician/Specialty*: Mitch Tate general surgeon Reason for Consult*: R Foot osteomyelitis, abscess, cellulitis Attending Physician: Carlton Simpson MD Primary Care Provider: Chon Bradshaw DO History of Present Illness History of Present Illness Surendra Roland is a 71 year old male, who presents with right lower extremity cellulitis. The patient had his right fourth toe amputated in April 2021 due to necrosis. Since that time he has had on and off issues but never an infection as severe as he has now. He has been managed intermittently with oral antibiotics. He is reports that he has never had IV antibiotics long-term for the PICC line. He ambulates of his right lower extremity by leaning on his heel. His diabetes has moderate control of his last A1c being 6.81-month ago. Patient reports he has sensation we have limited amount of motor control due to a small stroke per the patient. Past medical history: Hypertension, congestive heart failure, diabetes mellitus, aortic valve disease, biliary colic, hyperlipidemia, atrial fibrillation, skin cancer nonmelanoma. You surgical history: Sternotomy for AVR in 2011, laparoscopic cholecystectomy in 2008. Allergies none pertinent Family history: Nonpertinent Social: Ex-smoker Review of Systems General: Reports: 10 or more systems reviewed and unremarkable except in HPI and below Meds/Allergies Home Medications and Allergies Home Medications Medication Instructions Recorded Confirmed Last Taken Type duloxetine 60 mg capsule,delayed 60 mg PO DAILY 02/22/20 09/20/21 07/19/21 21:00 History release tamsulosin 0.4 mg capsule 0.8 mg PO BEDTIME 02/22/20 09/20/21 07/19/21 21:00 History carvedilol 25 mg tablet 25 mg PO BID #180 tab 01/23/21 09/20/21 07/21/21 05:00 Rx Jardiance 25 mg PO QAM 05/06/21 09/20/21 07/20/21 08:00 History Xarelto 20 mg PO QPM 05/06/21 09/20/21 09/06/21 History ascorbic acid (vitamin C) [Vitamin 1,000 mg PO QAM 05/06/21 09/20/21 07/21/21 05:00 History C] multivitamin 1 tab PO DAILY 05/06/21 09/20/21 07/20/21 12:00 History spironolactone 25 mg PO QAM 05/06/21 09/20/21 07/20/21 05:00 History losartan 100 mg tablet 100 mg PO QAM #90 tab 06/30/21 09/20/21 07/20/21 12:00 Rx potassium chloride 20 mEq 20 meq PO QAM #90 tab 06/30/21 09/20/21 07/20/21 12:00 Rx tablet,extended release cholecalciferol (vitamin D3) 25 25 mcg PO DAILY 08/01/21 09/20/21 Unknown History mcg (1,000 unit) capsule zinc 50 mg tablet 50 mg PO DAILY 08/01/21 09/20/21 Unknown History Tresiba FlexTouch U-200 75 unit SUBCUT BEDTIME 09/14/21 09/20/21 Unknown History furosemide 40 mg PO BID 09/14/21 09/20/21 Unknown History insulin aspart U-100 [Novolog 25 unit SUBCUT TID 09/14/21 09/20/21 Unknown History PenFill U-100 Insulin] sulfamethoxazole 800 1 tab PO BID #10 tab 09/19/21 09/20/21 Unknown Rx mg-trimethoprim 160 mg tablet Allergies Allergy/AdvReac Type Severity Reaction Status Date / Time No Known Allergies Allergy Verified 08/29/21 14:27 Current Medications Current Medications Generic Name Dose Route Start Last Admin Trade Name Freq PRN Reason Stop Dose Admin Hydrocodone Bitart/Acetaminophen 1 tab 09/19/21 22:40 09/20/21 06:46 Hydrocodone-Acetaminophen 5-325 Mg Tablet PO 1 tab Q8H PRN Administration pain Carvedilol 25 mg 09/20/21 09:00 09/20/21 09:27 Carvedilol 25 Mg Tablet PO 25 mg BID JYOTI Administration Cholestyramine Resin 4 gm 09/20/21 09:00 09/20/21 09:28 Cholestyramine Powder 4 Gm Pkt PO Not Given DAILY JYOTI Duloxetine HCl 60 mg 09/20/21 09:00 09/20/21 09:27 Duloxetine 60 Mg Capsule PO 60 mg DAILY JYOTI Administration Piperacillin Sod/Tazobactam 50 mls @ 12.5 mls/hr 09/20/21 11:30 09/20/21 12:17 Sod 3.375 gm/ Sodium Chloride IV 12.5 mls/hr Q8H JYOTI Administration Protocol Vancomycin/PEG/NADA/Lysine/Water 1,500 mg in 300 mls @ 200 mls/hr 09/20/21 14:00 09/20/21 15:11 Vancocin IV 200 mls/hr Q12H JYOTI Administration Insulin Human Lispro 0 unit 09/20/21 08:00 09/20/21 12:16 Insulin Lispro 100 Unit/1 Ml SUBCUT 1 unit WM&BEDTIME JYOTI Administration Protocol Isosorbide Mononitrate 30 mg 09/20/21 09:00 09/20/21 09:27 Isosorbide Mononitrate Er 30 Mg Tablet PO 30 mg DAILY JYOTI Administration Pantoprazole Sodium 40 mg 09/20/21 09:00 09/20/21 09:[address] 40 Mg Tablet PO 40 mg DAILY JYOTI Administration PFSH Acute PFSH: Medical History (Updated 09/20/21 @ 13:29 by Carlton Simpson MD) Acute hypokalemia Anticoagulation adequate with anticoagulant therapy Xarelto Atrial fibrillation Paroxysmal Benign prostatic hyperplasia Diabetes Dyslipidemia Gangrene History of nonmelanoma skin cancer HTN (hypertension) Hypertensive urgency NSTEMI (non-ST elevated myocardial infarction) Obesity Osteomyelitis of toe of left foot TIA (transient ischemic attack) Varicose vein of leg Surgical History S/P AVR (aortic valve replacement) Bioprosthetic, bovine S/P cataract extraction S/P cholecystectomy Family History Father Diabetes Hypertension Grandfather Diabetes PATERNAL Hypertension PATERNAL Social History Smoking and tobacco status: former smoker Alcohol intake: former Marital status: / service: No Current occupational status: retired Current occupation: retired from [employer] Vitals/I&O/Wt Last Vital Signs Temp 98 F 09/20/21 15:32 Pulse 68 09/20/21 15:32 Resp 16 09/20/21 15:32 BP 126/46 09/20/21 15:32 Pulse Ox 97 09/20/21 15:32 09/20/21 09/20/21 09/20/21 06:59 14:59 22:59 Intake Total 780 / 780 50 / 50 Output Total 550 / 550 400 / 400 Balance 230 / 230 -350 / -350 Weight last 48 hrs Weight 228 lb Physical Exam Narrative: EXAM NARRATIVE: General: Elderly appearing gentleman, overweight, but pleasant Head: Normocephalic atraumatic Eyes: No scleral icterus, conjugate gaze Skin: No jaundice, no exposed lesions in the abdominal skin. Abdominal: Prior laparoscopic scars noted, no abdominal tenderness. Musculoskeletal: The right foot has extensive venous congestion edema and hyperemia, blanching erythema. It is slightly warm to the touch. There is no crepitus. There are no obvious signs of necrosis. With the fourth toe would be present, there is an ulcerated but granulating wound with minimal purulent material. There is also a little bit of fibrinous exudates. There is no obvious major fluctuant fluid collection. Neuro: Sensation present on the plantar surface of the foot and partially in the dorsal surface of the foot. Lungs: Equal and symmetric expansion of the chest wall no accessory muscle use Data Micro: Micro: Microbiology 09/20/21 02:23 Blood Culture - Pr eliminary Blood [facility] 09/20/21 02:19 Blood Culture - Pr eliminary Blood [facility] A&P Additional A&P Information 71-year-old gentleman who presents with right lower extremity cellulitis, CT scan showing osteomyelitis, physical examination showing no signs of necrotizing soft tissue infection but there is venous congestion there is minimal purulence. He has intact sensation, some motor strength and some ambulation in the right lower extremity. He has never tried IV antibiotics before. Plan: 1. Right lower extremity cellulitis: Continue IV antibiotics. I would like to keep this patient in-house until we have a clear trend on physical examination and lab values showing an improvement with IV antibiotics. I would recommend consultation of infectious disease management for possible PICC line and possible long-term IV antibiotic therapy as the patient has tried oral antibiotic therapies before and has not succeeded although I am not sure if he has tried oral linezolid before and this may help him instead. I also recommend wet-to-dry dressings of the wound and daily changes. 2. Right lower extremity osteomyelitis. As above. No debridement indicated at this time. There is a small abscess between the third and fourth metatarsal but it is only 1 cm in maximal dimension. I would not risk an open wound which would be very difficult to heal given this patient's already problematic right foot. I attempted bedside aspiration utilizing sterile technique and was unable to acquire any obvious purulence. Await blood cultures and tailor antibiotics as above, and infectious disease consultation as above. 3. Hypertension: Management per medicine service 4. Hyperlipidemia: Management per medicine service. 5. Atrial fibrillation: Management per medicine service. 6. Venous congestion of the right lower extremity. Recommend elevation of the foot above the heart to promote drainage. 7. Diabetes mellitus type 2: Appears to have some control with an A1c of 6.8 per the patient. Management per medicine service. Tight control of sugar will be critical to resolving the infection as hyperglycemia strongly correlates with poor infection clearance and immune system dysfunction. Thank you for giving us the privilege of caring for this patient. The surgery service will continue to follow to ensure adequate resolution. 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
[2021-09-20 17:24] LABS: Glucose Point of Care 135 mg/dL (70-110)
[2021-09-20 18:15] LABS: Add Urine Microscopic? NO; Charge for UA Resulting for Rev
[2021-09-20 18:25] LABS: Bilirubin Urine Neg (Negative); Blood Urine Neg (Negative); Glucose Urine UA 4+ (Normal); Ketones Urine Negative (Negative); Leukocyte Esterase Urine Negative (Negative); Nitrate Urine Negative (Negative); Protein Urine Neg (Negative); Specific Gravity, Urine 1.015 (1.005-1.030); Urine Appearance Clear (CLEAR); Urine Color Yellow (Yellow); Urobilinogen Urine Norm (Negative); pH Urine 5 (5-7)
[2021-09-20 20:00] VITALS: BP 88/26; PULSE 70; RESP 18; TEMP 36.9; O2SAT 92
[2021-09-20 21:14] LABS: Glucose Point of Care 235 mg/dL (70-110)
[2021-09-20] MEDS: tamsulosin 0.4 mg Capsule 0.8 MG PO (21:35)
[2021-09-21] VITALS (7 sets, daily range): BP systolic 92–156; BP diastolic 44–66; PULSE 67–81; RESP 16–18; TEMP 36.7–37.4; O2SAT 91–97
[2021-09-21] MEDS: HYDROcodone-acetaminophen 5-325 mg Tablet 1 TAB PO ×2 (00:48→22:35)
[2021-09-21 01:50] LABS: Vancomycin Trough 17.6 ug/mL (10-15)
[2021-09-21] MEDS: vancomycin 1,500 MG/300 ML PIGGYBACK 200 MG IV ×2 (02:13→14:00)
[2021-09-21] MEDS: piperacillin-tazobactam 3.375 GM in sodium chloride 0.9% (plus) 50 ML IV ×3 (03:46→19:49)
[2021-09-21 06:19] LABS: Glucose Point of Care 99 mg/dL (70-110)
[2021-09-21] MEDS: isosorbide mononitrate ER 30 mg Tablet PO (08:34)
[2021-09-21] MEDS: pantoprazole DR 40 mg Tablet PO (08:34)
[2021-09-21] MEDS: duloxetine 60 mg Capsule PO (08:34)
[2021-09-21] MEDS: carvedilol 12.5 mg Tablet PO ×2 (08:34→18:18)
[2021-09-21] MEDS: FUROsemide 40 mg Tablet PO (08:34)
--- NOTE | 2021-09-21 10:10 | PM.PN ---
Subjective Subjective: Interval history: 71-year-old gentleman with right lower extremity osteomyelitis and right foot cellulitis with microabscess. The patient reports that his right foot feels better after attempted needle aspiration. The patient reports that elevating his right foot which is what he would like to do, does result in pain but that after the needle aspiration that pain is decreased. The patient reports that his right foot appears to be less red than before. Vitals/I&O/Wt Last Vital Signs Temp 98.1 F 09/21/21 07:23 Pulse 69 09/21/21 07:23 Resp 16 09/21/21 07:23 BP 121/53 09/21/21 07:23 Pulse Ox 97 09/21/21 07:23 09/20/21 09/21/21 09/21/21 22:59 06:59 14:59 Intake Total 1190 / 1240 1070 / 2310 50 / 50 Output Total 930 / 1330 470 / 1800 400 / 400 Balance 260 / -90 600 / 510 -350 / -350 Weight last 48 hrs Weight 228 lb Physical Exam Const: COMMON NORMALS: no acute distress and patient oriented x3 NUTRITIONAL APPEARANCE: overweight ORIENTATION/CONSCIOUSNESS: Yes oriented to person, Yes oriented to place and Yes oriented to time HENMT: COMMON NORMALS: normocephalic and atraumatic HEAD & SCALP: normocephalic and atraumatic Eye: COMMON NORMALS: EOMs intact bilaterally and no scleral icterus Neck/C-Spine: COMMON NORMALS: full ROM GENERAL: Yes normal visual inspection Chest: CHEST: Yes Symmetrical chest wall rise Resp: COMMON NORMALS: normal respiratory effort EFFORT & INSPECTION: Yes able to speak in complete sentences and Yes symmetric chest movement GI: INSPECTION: Yes normal to inspection Extremity: OTHER: Right foot erythema is significantly decreased compared to yesterday. There is also a decrease in swelling of the right foot. The right foot wound shows healthy granulation tissue with no purulence and minimal fibrinous exudates. The dressing was replaced. Neuro: COMMON NORMALS: patient oriented x3 and no focal motor deficits SENSORIUM/ORIENTATION: Yes oriented to person, Yes oriented to place and Yes oriented to time Psych: COMMON NORMALS: Normal thought process present APPEARANCE: Yes grossly normal THOUGHT PROCESS: Normal thought process present Data : 09/20/21 02:19 09/20/21 02:19 Micro: Microbiology 09/19/21 16:38 Gram Stain - Final Foot - Right Tissue Culture - Preliminary Staphylococcus aureus 09/20/21 02:23 Blood Culture - Preliminary Blood NEGATIVE TO DATE 09/20/21 02:19 Blood Culture - Preliminary Blood NEGATIVE TO DATE A&P Additional A&P Information 71-year-old gentleman with a history of hypertension, diabetes mellitus, and a history of cellulitis of the right lower extremity, atrial fibrillation, congestive heart failure, hyperlipidemia, peripheral vascular disease presenting with recurrent right foot cellulitis and right foot osteomyelitis. Involvement of the metatarsals. There is also small abscesses in the foot constituting approximately 1 to 2 mL in total volume of purulence. The patient is clearly doing better from a clinical standpoint. There is a decrease in swelling pain and erythema of the right foot. The IV antibiotics appear to be effective. Unfortunately the CBC is still not back this morning. We will trend this. However there is no fever at this time. Recommend infectious disease consultation. Unless they disagree, I would recommend PICC line and IV antibiotics to treat the cellulitis of the metatarsals in order to salvage the right foot which the patient uses to ambulate. Appreciate medical management of the patient and other comorbidities. Patient will need tight control of his diabetes to prevent infection propagation. Attestations Medical Necessity Statement*: Hospital stay required due to need for IV antibiotic therapy and awaiting infectious disease consultation final recommendations, including possible PICC line for discharge. 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
[2021-09-21 11:42] LABS: Glucose Point of Care 261 mg/dL (70-110)
[2021-09-21] MEDS: insulin lispro 100 unit/1 mL SUBCUT ×3 (12:28→21:38)
--- NOTE | 2021-09-21 15:44 | PM.PN ---
Subjective Subjective: Interval history: No events overnight. Denies any nausea, vomiting, headache. Laying comfortably in bed today. States feeling better. Has remained hemodynamically stable and afebrile. Vitals/I&O/Wt Last Vital Signs Temp 98.5 F 09/21/21 15:15 Pulse 81 09/21/21 15:15 Resp 18 09/21/21 15:15 BP 133/53 09/21/21 15:15 Pulse Ox 97 09/21/21 15:15 09/21/21 09/21/21 09/21/21 06:59 14:59 22:59 Intake Total 1070 / 2310 340 / 340 Output Total 470 / 1800 400 / 400 Balance 600 / 510 -60 / -60 Weight last 48 hrs Weight 103.419 kg Physical Exam Narrative: EXAM NARRATIVE: General: No acute distress, AO x3 HEENT: PERRLA, pupils bilaterally equal and reactive, pallors not present Chest: Normal vesicular breath sounds, no added sounds, equal good air entry bilaterally CVS: S1-S2 regular, no murmurs, no tachycardia, no gallops, no rubs Abdomen: Soft, nontender, no organomegaly, bowel sounds present Neuro: No focal deficits, no facial deformity, AO x3, power 5/5 in all limbs Extremities: ulcer over base of right 4th toe at previous amputation site, cellulitis over right foot extending up to calf Data : 09/20/21 02:19 09/20/21 02:19 Micro: Microbiology 09/20/21 16:40 MRSA Culture - Final Nose 09/19/21 16:38 Gram Stain - Final Foot - Right Tissue Culture - Preliminary Staphylococcus aureus 09/20/21 02:23 Blood Culture - Preliminary Blood NEGATIVE TO DATE 09/20/21 02:19 Blood Culture - Preliminary Blood NEGATIVE TO DATE A&P Assessment and plan (1) Abscess: Status: Acute (2) Osteomyelitis of right foot: Status: Acute Qualifiers: Osteomyelitis type: chronic, with draining sinus Qualified Code(s): M86.471 - Chronic osteomyelitis with draining sinus, right ankle and foot (3) PVD (peripheral vascular disease): Status: Acute (4) Atrial fibrillation: Status: Acute Qualifiers: Atrial fibrillation type: longstanding persistent Qualified Code(s): I48.11 - Longstanding persistent atrial fibrillation (5) Chronic anticoagulation: Status: Chronic (6) S/P AVR (aortic valve replacement): Status: Chronic (7) Diabetes: Status: Chronic Qualifiers: Diabetes mellitus type: type 2 Diabetes mellitus long-term insulin use: with long-term use Diabetes mellitus complication status: with circulatory complication Diabetes mellitus complication detail: with other circulatory complications Qualified Code(s): E11.59 - Type 2 diabetes mellitus with other circulatory complications; Z79.4 - alf (current) use of insulin (8) Congestive heart failure: Status: Acute Qualifiers: Heart failure chronicity: acute Heart failure type: diastolic Qualified Code(s): I50.31 - Acute diastolic (congestive) heart failure (9) HTN (hypertension): Status: Chronic Additional A&P Information Abscess/osteomyelitis of right foot: As seen on CT foot. History of MSSA from wound culture in the past. For now continue with vancomycin and Zosyn. We will follow up blood culture, wound culture from wound care center from date 09/19 growing staph aureus. Check MRSA swab. Appreciate surgical recommendations. Most likely patient will need a PICC line placement and IV antibiotics for 6 weeks going forward. Plan for PICC line tomorrow if blood cultures remain negative. Congestive heart failure/ History of aortic valve replacement/ History of atrial fibrillation on chronic anticoagulation with Xarelto: Last echocardiogram from June 2020 shows an EF 55% with grade 2 diastolic dysfunction, moderately elevated filling pressures, normal positioning bioprosthetic valve. Patient seems euvolemic. Blood pressures today morning on the lower side. Decrease the dose of carvedilol to 12.5 mg twice daily. Continue home dose of Imdur. Continue with Lasix 40 mg daily. Stop spironolactone. Hypertension: Goal blood pressure less than 140/90 mmHg. Type 2 diabetes mellitus: Hold OHA's. Insulin sliding scale. Continue other chronic medication including duloxetine, Imdur, Protonix. Full code. Cardiac carb consistent diet. Hold off Xarelto for possible OR. Protonix for PUD prophylaxis. Attestations Medical Necessity Statement*: Requires further hospitalization for management of osteomyelitis of right foot Time Spent in Patient Care: Greater than 35 minutes (>than 50% of time spent in counselling and/or direct pt care on unit). 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
[2021-09-21 16:39] LABS: Glucose Point of Care 168 mg/dL (70-110)
[2021-09-21] MEDS: rivaroxaban 10 mg Tablet 20 MG PO (18:18)
[2021-09-21] MEDS: tamsulosin 0.4 mg Capsule 0.8 MG PO (21:38)
[2021-09-22 01:58] LABS: Basophils % 0.4 %; Eosinophils # 0.4 10^3/uL (0.0-0.8); Eosinophils % 4.9 %; Hematocrit 26.9 % (42.0-52.0); Hemoglobin 7.9 g/dL (11.7-16.6); Mean Corpuscular HGB Conc 29.4 g/dL (30.0-36.0); Mean Corpuscular Hemoglobin 23.3 pg (28.0-34.0); Mean Corpuscular Volume 79.4 fl (80-94); Monocytes % 12.5 %; Neutrophils # 5.45 10^3/uL (1.8-7.7); Neutrophils % 68.8 %; Nucleated Red Blood Cells % 0 %; Platelet Count 288 10^3/cmm (130-400); Red Blood Count 3.39 10^6/uL (4.1-5.3); Red Cell Distribution Width 16.4 % (12.1-15.1); White Blood Count 7.9 10^3/uL (4.0-10.0)
[2021-09-22] MEDS: vancomycin 1,500 MG/300 ML PIGGYBACK 200 MG IV (02:03)
[2021-09-22 02:26] LABS: Alanine Aminotransferase 8 U/L (0-41); Albumin Level 3.1 g/dL (3.5-5.2); Alkaline Phosphatase 70 IU/L (40-130); Anion Gap 14.7 (5-19); Aspartate Amino Transferase 11 U/L (0-40); Blood Urea Nitrogen 10 mg/dL (8-23); Carbon Dioxide 21 mmol/L (22-29); Chloride 102 mmol/L (98-107); Globulin 2.7 g/dL (1.3-4.6); Glucose 147 mg/dL (65-115); Osmolality Calculated 280 mOsm/kg (285-295); Potassium 3.7 mmol/L (3.5-5.1); Sodium 134 mmol/L (136-145); Total Bilirubin 0.7 mg/dL (0.15-1.2); Total Protein 5.8 g/dL (6.6-8.7)
[2021-09-22] MEDS: piperacillin-tazobactam 3.375 GM in sodium chloride 0.9% (plus) 50 ML IV ×2 (03:45→10:43)
[2021-09-22 04:00] VITALS: BP 132/56; PULSE 63; RESP 16; TEMP 36.7; O2SAT 96
[2021-09-22 07:37] VITALS: BP 153/65; PULSE 65; RESP 16; TEMP 36.6; O2SAT 97
[2021-09-22] MEDS: duloxetine 60 mg Capsule PO (08:05)
[2021-09-22] MEDS: pantoprazole DR 40 mg Tablet PO (08:05)
[2021-09-22] MEDS: carvedilol 12.5 mg Tablet PO ×2 (08:05→18:25)
[2021-09-22] MEDS: isosorbide mononitrate ER 30 mg Tablet PO (08:05)
[2021-09-22] MEDS: FUROsemide 40 mg Tablet PO (08:05)
[2021-09-22 08:32] LABS: Glucose Point of Care 139 mg/dL (70-110)
--- NOTE | 2021-09-22 10:52 | PC.SOCIAL ---
Pg 2 IMM Explained to pt Pg 2 IMM. No questions voiced. Provided pt a copy. Initialed, dated, & timed a copy & placed in chart.
[2021-09-22 11:32] VITALS: BP 147/61; PULSE 68; RESP 17; TEMP 36.7; O2SAT 97
[2021-09-22] MEDS: insulin lispro 100 unit/1 mL SUBCUT ×3 (11:51→20:58)
[2021-09-22 11:59] LABS: Glucose Point of Care 173 mg/dL (70-110)
[2021-09-22 11:59] LABS: Glucose Point of Care 270 mg/dL (70-110)
[2021-09-22 11:59] LABS: Glucose Point of Care 153 mg/dL (70-110)
--- NOTE | 2021-09-22 13:25 | XR_ITS ---
WS: [id number] XR chest 1V portable [id number] REASON FOR EXAM: picc placement FINDINGS: There is been placement of a right arm PICC line. The PICC line is at the right atrial level where it will function. Withdrawing the catheter 3.[address] it at the cavoatrial junction, a more opti mal position. XR/XR chest 1V portable [id number] IMPRESSION: Placement of right arm PICC line with position as above.
--- NOTE | 2021-09-22 14:12 | PC.NURSE ---
PICC RIGHT arm ready for use. .
--- NOTE | 2021-09-22 14:48 | P.PN_ITS ---
Subjective Subjective: Interval history: No events overnight. Patient seen sitting up in chair. Denies any nausea vomiting, headache. Vitals/I&O/Wt Last Vital Signs Temp 98.1 F 09/22/21 11:32 Pulse 68 09/22/21 11:32 Resp 17 09/22/21 11:32 BP 147/61 09/22/21 11:32 Pulse Ox 97 09/22/21 11:32 09/21/21 09/22/21 09/22/21 22:59 06:59 14:59 Intake Total 690 / 1030 1090 / 2120 410 / 410 Output Total 2050 / 2450 Balance 690 / 630 -960 / -330 410 / 410 Physical Exam Narrative: EXAM NARRATIVE: General: No acute distress, AO x3 HEENT: PERRLA, pupils bilaterally equal and reactive, pallors not present Chest: Normal vesicular breath sounds, no added sounds, equal good air entry bilaterally CVS: S1-S2 regular, no murmurs, no tachycardia, no gallops, no rubs Abdomen: Soft, nontender, no organomegaly, bowel sounds present Neuro: No focal deficits, no facial deformity, AO x3, power 5/5 in all limbs Extremities: ulcer over base of right 4th toe at previous amputation site, cellulitis over right foot extending up to calf Data : 09/22/21 01:40 09/22/21 01:40 Micro: Microbiology 09/19/21 16:38 Gram Stain - Final Foot - Right Tissue Culture - Preliminary Staphylococcus aureus 09/20/21 16:40 MRSA Culture - Final Nose A&P Assessment and plan (1) Abscess: Status: Acute (2) Osteomyelitis of right foot: Status: Acute Qualifiers: Osteomyelitis type: chronic, with draining sinus Qualified Code(s): M86.471 - Chronic osteomyelitis with draining sinus, right ankle and foot (3) PVD (peripheral vascular disease): Status: Acute (4) Atrial fibrillation: Status: Acute Qualifiers: Atrial fibrillation type: longstanding persistent Qualified Code(s): I48.11 - Longstanding persistent atrial fibrillation (5) Chronic anticoagulation: Status: Chronic (6) S/P AVR (aortic valve replacement): Status: Chronic (7) Diabetes: Status: Chronic Qualifiers: Diabetes mellitus type: type 2 Diabetes mellitus snf insulin use: with snf use Diabetes mellitus complication status: with circulatory complication Diabetes mellitus complication detail: with other circulatory complications Qualified Code(s): E11.59 - Type 2 diabetes mellitus with other circulatory complications; 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 History of MSSA from wound culture in the past. Assisted with MSSA. Blood cultures so far negative. PICC line placed today. Stop vancomycin and Zosyn. Switch to ceftriaxone 2 g IV daily as per culture sensitivities. Patient will need antibiotics for overall 6 weeks given osteo myelitis. Congestive heart failure/ History of aortic valve replacement/ History of atrial fibrillation on chronic anticoagulation with Xarelto: Last echocardiogram from June 2020 shows an EF 55% with grade 2 diastolic dysfunction, moderately elevated filling pressures, normal positioning biop rosthetic valve. Patient seems euvolemic. Restart Xarelto. Blood pressures today morning on the lower side. Decrease the dose of carvedilol to 12.5 mg twice daily. Continue home dose of Imdur. Continue with Lasix 40 mg daily. Stop spironolactone. Hypertension: Goal blood pressure less than 140/90 mmHg. Type 2 diabetes mellitus: Hold OHA's. Insulin sliding scale. Continue other chronic medication including duloxetine, Imdur, Protonix. Full code. Cardiac carb consistent diet. Xarelto will help with DVT prophylaxis. Protonix for PUD prophylaxis. Discharge planning: Plan to discharge on IV antibiotics for 6 weeks. Ceftriaxone 2 g IV daily. PICC line placed. Given requirement of IV an tibiotics for next 6 weeks as patient does not have a caregiver and has been deemed not teachable to take care of his own IV antibiotic needs patient will need placement to SNF. Case management alerted. Attestations Medical Necessity Statement*: Requires further hospitalization for management of osteomyelitis for IV antibiotic requirement while safe discharge planning is sought. Time Spent in Patient Care: Greater than 35 minutes (>than 50% of time spent in counselling and/or direct pt care on unit) . 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[employer] [facility] Diagnoses Abscess L02.91 Osteomyelitis of right foot M86.471 Osteomyelitis type: chronic, with draining sinus PVD (peripheral vascular disease) I73.9 Atrial fibrillation I48.11 Atrial fibrillation type: longstanding persistent Chronic anticoagulation Z79.01 S/P AVR (aortic valve replacement) Z95.2 Diabetes E11.59; Z79.4 Diabetes mellitus type: type 2 Diabetes mellitus rn long term care insulin use: with rn long term care use Diabetes mellitus complication status: with circulatory complication Diabetes mellitus complication detail: with other circulatory complications Congestive heart failure I50.31 Heart failure chronicity: acute Heart failure type: diastolic HTN (hypertension) I10
--- NOTE | 2021-09-22 15:03 | PM.PN ---
Subjective Subjective: Interval history: 71 y M with DM II, R Foot osteomyelitis. Overnight, patient's sugar went to 270. He confessed he ate a hot sticky bun, some peaches and sugar syrup. Despite this, he feels his right foot has gotten better than ever. He is very thankful. Vitals/I&O/Wt Last Vital Signs Temp 98.1 F 09/22/21 11:32 Pulse 68 09/22/21 11:32 Resp 17 09/22/21 11:32 BP 147/61 09/22/21 11:32 Pulse Ox 97 09/22/21 11:32 09/22/21 09/22/21 09/22/21 06:59 14:59 22:59 Intake Total 1090 / 2120 410 / 410 Output Total 2050 / 2450 Balance -960 / -330 410 / 410 Physical Exam Narrative: EXAM NARRATIVE: R Foot is minimally erythematous, continuing to improve vs yesterday. No blanching erythema. The wound between the metatarsals is clean with some fibrinous exudates. No gross infection. Data : 09/22/21 01:40 09/22/21 01:40 Micro: Microbiology 09/19/21 16:38 Gram Stain - Final Foot - Right Tissue Culture - Preliminary Staphylococcus aureus 09/20/21 16:40 MRSA Culture - Final Nose A&P Additional A&P Information 71 y M with DM II, R foot osteomyelitis. I counselled patinet not to eat sugar foods like he did. I gave him a few good diabetic friendly low sugar snacks he can order online when home to address any snack cravings. The patient is clear from surger standpoint to be discharged home given the lack of purulence, the cleanliness of the wound, the lack of fever, wbc. He will need good home sugar control, IV PICC line antibiotics and daily dressing changes. Thank you for this consultation. No further surgical input. Surgery team will sign off, but please call for any further questions. 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
--- NOTE | 2021-09-22 15:06 | PC.CHAP ---
Pastoral Care Encounter/Spiritual Assessment Type of Contact [] Declined machine washer visit [] Patient/Family/Request visit [] Outpatient visit [xx] Follow-up visit [] Physician referral [] Code/Alert [] Routine visit [] Staff referral [] Actively dying [] Patient sleeping [] Family support [] [] Out of room [] Palliative care [] [xx] Receiving care in room [] Pre-surgical visit [] Trauma [] Long length of stay [] ICU visit [] Other: Relational/Emotional Strength [] Patient feels connected with others/family/visitors/staff [] Distress [] Loneliness/isolation [] Abandonment Spirituality of Patient [] Person of [place] [] Attends Adventist of their [place] [] Believes in Prayer [] Reads Bible or Pentecostal materials [] There are Spiritual issues to be addressed Roll Picker Interventions [] Prayer [] Active listening [] Non-anxious presence [] Spiritual/emotional support [] Crisis/trauma care [] Spiritual counseling [] Bereavement support [] Provided bereavement packet [] Provided Bible/devotional materials [] Provided toy/stuffed animal, coloring book to patient or family member [] Provided Communion [] Anointing/[place] [] Salvation [] Completed spiritual assessment [] Other: Impact on Illness or Injury [] Angry [] Fearful [] Anxious [] Often cries [] Exhaustion [] Unable to work [] Unable to attend zoroastrianism [] Unable to walk/stand [] Unable to read [] Unable to drive [] Unable to eat/drink [] Unable to sleep [] Unable to be with family [] Patient intubated [] Other: Summary Time spent with patient
[2021-09-22] MEDS: cefTRIAXone 2,000 MG in sodium chloride 0.9% (plus) 50 ML 100 MG IV (15:24)
[2021-09-22 16:00] VITALS: BP 135/62; PULSE 73; RESP 18; TEMP 36.4; O2SAT 96
[2021-09-22] MEDS: rivaroxaban 10 mg Tablet 20 MG PO (18:25)
[2021-09-22 20:00] VITALS: BP 152/67; PULSE 71; RESP 16; TEMP 36.8; O2SAT 95
[2021-09-22] MEDS: tamsulosin 0.4 mg Capsule 0.8 MG PO (20:57)
[2021-09-22] MEDS: HYDROcodone-acetaminophen 5-325 mg Tablet 1 TAB PO (20:57)
[2021-09-23] VITALS (7 sets, daily range): BP systolic 121–165; BP diastolic 59–70; PULSE 65–78; RESP 14–20; TEMP 36.4–36.9; O2SAT 92–98
[2021-09-23] MEDS: morphine 4 mg/mL SDV 1 mL 2 MG IVP (01:43)
[2021-09-23] MEDS: HYDROcodone-acetaminophen 5-325 mg Tablet 1 TAB PO ×2 (05:04→14:10)
[2021-09-23 06:37] LABS: Basophils % 0.4 %; Eosinophils # 0.4 10^3/uL (0.0-0.8); Eosinophils % 5.3 %; Hemoglobin 7.9 g/dL (11.7-16.6); Lymphocytes % 14.9 %; Mean Corpuscular HGB Conc 29.3 g/dL (30.0-36.0); Mean Corpuscular Hemoglobin 23.3 pg (28.0-34.0); Mean Corpuscular Volume 79.6 fl (80-94); Mean Platelet Volume 10.4 fL (7.4-10.4); Monocytes # 0.9 10^3/uL (0.2-0.9); Monocytes % 12.7 %; Neutrophils % 66.4 %; Nucleated Red Blood Cells % 0 %; Platelet Count 289 10^3/cmm (130-400); Red Blood Count 3.39 10^6/uL (4.1-5.3); Red Cell Distribution Width 16.1 % (12.1-15.1); White Blood Count 6.8 10^3/uL (4.0-10.0)
[2021-09-23 06:57] LABS: Alanine Aminotransferase 8 U/L (0-41); Albumin Level 2.9 g/dL (3.5-5.2); Alkaline Phosphatase 72 IU/L (40-130); Anion Gap 15.2 (5-19); Aspartate Amino Transferase 13 U/L (0-40); Blood Urea Nitrogen 8 mg/dL (8-23); Carbon Dioxide 22 mmol/L (22-29); Chloride 105 mmol/L (98-107); Globulin 3.1 g/dL (1.3-4.6); Glucose 160 mg/dL (65-115); Osmolality Calculated 288 mOsm/kg (285-295); Potassium 4.2 mmol/L (3.5-5.1); Sodium 138 mmol/L (136-145); Total Bilirubin 0.5 mg/dL (0.15-1.2)
[2021-09-23 06:59] LABS: Glucose Point of Care 176 mg/dL (70-110)
[2021-09-23 06:59] LABS: Glucose Point of Care 172 mg/dL (70-110)
[2021-09-23 06:59] LABS: Glucose Point of Care 183 mg/dL (70-110)
[2021-09-23] MEDS: pantoprazole DR 40 mg Tablet PO (08:23)
[2021-09-23] MEDS: duloxetine 60 mg Capsule PO (08:23)
[2021-09-23] MEDS: FUROsemide 40 mg Tablet PO (08:23)
[2021-09-23] MEDS: carvedilol 12.5 mg Tablet PO ×2 (08:23→17:50)
[2021-09-23] MEDS: isosorbide mononitrate ER 30 mg Tablet PO (08:23)
[2021-09-23] MEDS: insulin lispro 100 unit/1 mL SUBCUT ×3 (08:26→21:58)
[2021-09-23] MEDS: cholestyramine powder 4 gm Pkt PO (09:59)
[2021-09-23 11:08] LABS: Glucose Point of Care 251 mg/dL (70-110)
--- NOTE | 2021-09-23 15:57 | PM.PN ---
Subjective Subjective: Interval history: no events overnight. Patient has remained hemodynamically stable and afebrile. Vitals/I&O/Wt Last Vital Signs Temp 97.6 F 09/23/21 11:43 Pulse 66 09/23/21 11:43 Resp 20 H 09/23/21 11:43 BP 121/61 09/23/21 11:43 Pulse Ox 94 09/23/21 11:43 09/23/21 09/23/21 09/23/21 06:59 14:59 22:59 Intake Total 500 / 1750 Output Total 1750 / 2150 300 / 300 Balance -1250 / -400 -300 / -300 Physical Exam Narrative: EXAM NARRATIVE: General: No acute distress, AO x3 HEENT: PERRLA, pupils bilaterally equal and reactive, pallors not present Chest: Normal vesicular breath sounds, no added sounds, equal good air entry bilaterally CVS: S1-S2 regular, no murmurs, no tachycardia, no gallops, no rubs Abdomen: Soft, nontender, no organomegaly, bowel sounds present Neuro: No focal deficits, no facial deformity, AO x3, power 5/5 in all limbs Extremities: ulcer over base of right 4th toe at previous amputation site, cellulitis over right foot extending up to calf Data : 09/23/21 05:45 09/23/21 05:45 Micro: Microbiology 09/19/21 16:38 Gram Stain - Final Foot - Right Tissue Culture - Final Staphylococcus aureus A&P Assessment and plan (1) Abscess: Status: Acute (2) Osteomyelitis of right foot: Status: Acute Qualifiers: Osteomyelitis type: chronic, with draining sinus Qualified Code(s): M86.471 - Chronic osteomyelitis with draining sinus, right ankle and foot (3) PVD (peripheral vascular disease): Status: Acute (4) Atrial fibrillation: Status: Acute Qualifiers: Atrial fibrillation type: longstanding persistent Qualified Code(s): I48.11 - Longstanding persistent atrial fibrillation (5) Chronic anticoagulation: Status: Chronic (6) S/P AVR (aortic valve replacement): Status: Chronic (7) Diabetes: Status: Chronic Qualifiers: Diabetes mellitus complication detail: with other circulatory complications Diabetes mellitus complication status: with circulatory complication Diabetes mellitus exterminator helper termite insulin use: with exterminator helper termite use Diabetes mellitus type: type 2 Qualified Code(s): E11.59 - Type 2 diabetes mellitus with other circulatory complications; Z79.4 - penitentiary (current) use of insulin (8) Congestive heart failure: Status: Acute Qualifiers: Heart failure chronicity: acute Heart failure type: diastolic Qualified Code(s): I50.31 - Acute diastolic (congestive) heart failure (9) HTN (hypertension): Status: Chronic (10) MSSA (methicillin susceptible Staphylococcus aureus) infection: Status: Acute Additional A&P Information Abscess/osteomyelitis of right foot: As seen on CT foot. History of MSSA from wound culture in the past. Assisted with MSSA. Blood cultures so far negative. PICC line placed on 09/22 Stop vancomycin and Zosyn. Switch to ceftriaxone 2 g IV daily as per culture sensitivities. Patient will need antibiotics for overall 6 weeks given osteomyelitis. Congestive heart failure/ History of aortic valve replacement/ History of atrial fibrillation on chronic anticoagulation with Xarelto: Last echocardiogram from June 2020 shows an EF 55% with grade 2 diastolic dysfunction, moderately elevated filling pressures, normal positioning bioprosthetic valve. Patient seems euvolemic. Restart Xarelto. Blood pressures today morning on the lower side. Decrease the dose of carvedilol to 12.5 mg twice daily. Continue home dose of Imdur. Continue with Lasix 40 mg daily. Stop spironolactone. Hypertension: Goal blood pressure less than 140/90 mmHg. Type 2 diabetes mellitus: Hold OHA's. Insulin sliding scale. Continue other chronic medication including duloxetine, Imdur, Protonix. Full code. Cardiac carb consistent diet. Xarelto will help with DVT prophylaxis. Protonix for PUD prophylaxis. Discharge planning: Plan to discharge on IV antibiotics for 6 weeks. Ceftriaxone 2 g IV daily. PICC line placed. Given requirement of IV antibiotics for next 6 weeks as patient does not have a caregiver and has been deemed not teachable to take care of his own IV antibiotic needs patient will need placement to SNF. Case management alerted. Attestations Medical Necessity Statement*: Requires further hospitalization for management of osteomyelitis, IV antibiotics while safe discharge planning is sought. Time Spent in Patient Care: Greater than 35 minutes (>than 50% of time spent in counselling and/or direct pt care on unit). Coding Level of Care Code Acute Roll Icer for [facility] Diagnoses Abscess L02.91 Osteomyelitis of right foot M86.471 Osteomyelitis type: chronic, with draining sinus PVD (peripheral vascular disease) I73.9 Atrial fibrillation I48.11 Atrial fibrillation type: longstanding persistent Chronic anticoagulation Z79.01 S/P AVR (aortic valve replacement) Z95.2 Diabetes E11.59; Z79.4 Diabetes mellitus complication detail: with other circulatory complications Diabetes mellitus complication status: with circulatory complication Diabetes mellitus exterminator helper termite insulin use: with exterminator helper termite use Diabetes mellitus type: type 2 Congestive heart failure I50.31 Heart failure chronicity: acute Heart failure type: diastolic HTN (hypertension) I10 MSSA (methicillin susceptible Staphylococcus aureus) infection A49.01
[2021-09-23 17:27] LABS: Glucose Point of Care 93 mg/dL (70-110)
[2021-09-23] MEDS: rivaroxaban 10 mg Tablet 20 MG PO (17:50)
[2021-09-23] MEDS: cefTRIAXone 2,000 MG in sodium chloride 0.9% (plus) 50 ML 100 MG IV (17:50)
[2021-09-23] MEDS: tamsulosin 0.4 mg Capsule 0.8 MG PO (21:58)
[2021-09-24] VITALS: BP 143/58; PULSE 81; RESP 17; TEMP 36.7; O2SAT 93
[2021-09-24] MEDS: HYDROcodone-acetaminophen 5-325 mg Tablet 1 TAB PO (00:21)
[2021-09-24 03:35] LABS: Alanine Aminotransferase 9 U/L (0-41); Albumin Level 3.1 g/dL (3.5-5.2); Alkaline Phosphatase 77 IU/L (40-130); Aspartate Amino Transferase 16 U/L (0-40); Blood Urea Nitrogen 10 mg/dL (8-23); Calcium 8.4 mg/dL (8.5-10.5); Carbon Dioxide 23 mmol/L (22-29); Chloride 104 mmol/L (98-107); Globulin 3.3 g/dL (1.3-4.6); Glucose 101 mg/dL (65-115); Osmolality Calculated 285 mOsm/kg (285-295); Sodium 138 mmol/L (136-145); Total Bilirubin 0.5 mg/dL (0.15-1.2); Total Protein 6.4 g/dL (6.6-8.7)
[2021-09-24 03:53] LABS: Anion Gap 15.4 (5-19); Potassium 4.4 mmol/L (3.5-5.1)
[2021-09-24 04:00] VITALS: BP 151/63; PULSE 97; RESP 16; TEMP 37.1; O2SAT 90
[2021-09-24 07:15] LABS: Glucose Point of Care 129 mg/dL (70-110)
[2021-09-24 07:15] LABS: Glucose Point of Care 260 mg/dL (70-110)
[2021-09-24] MEDS: duloxetine 60 mg Capsule PO (07:51)
[2021-09-24] MEDS: pantoprazole DR 40 mg Tablet PO (07:51)
[2021-09-24] MEDS: FUROsemide 40 mg Tablet PO (07:51)
[2021-09-24] MEDS: isosorbide mononitrate ER 30 mg Tablet PO (07:51)
[2021-09-24] MEDS: carvedilol 12.5 mg Tablet PO (07:52)
[2021-09-24 07:54] VITALS: BP 154/71; PULSE 79; RESP 18; TEMP 36.8; O2SAT 93
[2021-09-24] MEDS: cholestyramine powder 4 gm Pkt PO (09:43)
[2021-09-24 12:00] VITALS: BP 143/63; PULSE 81; RESP 17; TEMP 36.6; O2SAT 95
[2021-09-24 12:27] LABS: Glucose Point of Care 284 mg/dL (70-110)
[2021-09-24] MEDS: insulin lispro 100 unit/1 mL SUBCUT ×3 (12:41→21:21)
--- NOTE | 2021-09-24 12:43 | PC.SOCIAL ---
IMM Updated Updated pt on IMM. No questions voiced. Provided pt a copy. Initialed, dated, & timed copy in chart.
--- NOTE | 2021-09-24 15:04 | P.PN_ITS ---
Subjective Subjective: Interval history: No new complaints. Has remained stable. Denies any nausea, vomiting, headache. Sitting up in chair on examination. Vitals/I&O/Wt Last Vital Signs Temp 97.9 F 09/24/21 12:00 Pulse 81 09/24/21 12:00 Resp 17 09/24/21 12:00 BP 143/63 09/24/21 12:00 Pulse Ox 95 09/24/21 12:00 09/24/21 09/24/21 09/24/21 06:59 14:59 22:59 Intake Total 360 / 360 Output Total 300 / 600 750 / 750 Balance -300 / -10 -390 / -390 Physical Exam Narrative: EXAM NARRATIVE: General: No acute distress, AO x3 HEENT: PERRLA, pupils bilaterally equal and reactive, pallors not present Chest: Normal vesicular breath sounds, no added sounds, equal good air entry bilaterally CVS: S1-S2 regular, no murmurs, no tachycardia, no gallops, no rubs Abdomen: Soft, nontender, no organomegaly, bowel sounds present Neuro: No focal deficits, no facial deformity, AO x3, power 5/5 in all limbs Extremities: ulcer over base of right 4th toe at previous amputation site, cellulitis over right foot extending up to calf Data : 09/23/21 05:45 09/24/21 02:08 Micro: Microbiology 09/19/21 16:38 Gram Stain - Final Foot - Right Tissue Culture - Final Staphylococcus aureus A&P Assessment and plan (1) Abscess: Status: Acute (2) Osteomyelitis of right foot: Status: Acute Qualifiers: Osteomyelitis type: chronic, with draining sinus Qualified Code(s): M86.471 - Chronic osteomyelitis with draining sinus, right ankle and foot (3) PVD (peripheral vascular disease): Status: Acute (4) Atrial fibrillation: Status: Acute Qualifiers: Atrial fibrillation type: longstanding persistent Qualified Code(s): I48.11 - Longstanding persistent atrial fibrillation (5) Chronic anticoagulation: Status: Chronic (6) S/P AVR (aortic valve replacement): Status: Chronic (7) Diabetes: Status: Chronic Qualifiers: Diabetes mellitus type: type 2 Diabetes mellitus computer terminal operator insulin use: with jail use Diabetes mellitus complication status: with circulatory complication Diabetes mellitus complication detail: with other circulatory complications Qualified Code(s): E11.59 - Type 2 diabetes mellitus with other circulatory complications; Z79.4 - technician terminal and repeater (current) use of insulin (8) Congestive heart failure: Status: Acute Qualifiers: Heart failure chronicity: acute Heart failure type: diastolic Qualified Code(s): I50.31 - Acute diastolic (congestive) heart failure (9) HTN (hypertension): Status: Chronic (10) MSSA (methicillin susceptible Staphylococcus aureus) infection: Status: Acute Additional A&P Information Abscess/osteomyelitis of right foot: As seen on CT foot. History of MSSA from wound culture in the past. Assisted with MSSA. Blood cultures so far negative. PICC line placed on 09/22 Stop vancomycin and Zosyn. Switch to ceftriaxone 2 g IV daily as per culture s ensitivities. Patient will need antibiotics for overall 6 weeks given osteomyelitis. Congestive heart failure/ History of aortic valve replacement/ History of atrial fibrillation on chronic anticoagulation with Xarelto: Last echocardiogram from June 2020 shows an EF 55% with grade 2 diastolic dysfunction, moderately elevated filling pressures, normal positioning bioprosthetic valve. Patient seems euvolemic. Restart Xarelto. Continue home dose of Imdur and Coreg. Continue with Lasix 40 mg daily. Stop spironolactone. Hypertension: Goal blood pressure less than 140/90 mmHg. Type 2 diabetes mellitus: Hold OHA's. Insulin sliding scale. Continue other chronic medication including duloxetine, Imdur, Protonix. Full code. Cardiac carb consistent diet. Xarelto will help with DVT prophylaxis. Protonix for PUD prophylaxis. Plan for day: Continue with IV ceftriaxone 2 g daily. Increase Coreg to home dose of 25 mg twice daily. Discharge planning: Plan to discharge on IV antibiotics for 6 weeks. Ceftriaxone 2 g IV daily. PICC line placed. Given requirement of IV anti biotics for next 6 weeks as patient does not have a caregiver and has been deemed not teachable to take care of his own IV antibiotic needs patient will need placement to SNF. Case management alerted. Attestations Medical Necessity Statement*: Requires further hospitalization for management of osteomyelitis while safe discharge planning is sought. Time Spent in Patient Care: Greater than 35 minutes (>than 50% of time spent in counselling and/or direct pt care on unit) . Coding Level of Care Code Acute Process Checker for [facility] Diagnoses Abscess L02.91 Osteomyelitis of right foot M86.471 Osteomyelitis type: chronic, with draining sinus PVD (peripheral vascular disease) I73.9 Atrial fibrillation I48.11 Atrial fibrillation type: longstanding persistent Chronic anticoagulation Z79.01 S/P AVR (aortic valve replacement) Z95.2 Diabetes E11.59; Z79.4 Diabetes mellitus type: type 2 Diabetes mellitus jail insulin use: with computer terminal operator use Diabetes mellitus complication status: with circulatory complication Diabetes mellitus complication detail: with other circulatory complications Congestive heart failure I50.31 Heart failure chronicity: acute Heart failure type: diastolic HTN (hypertension) I10 MSSA (methicillin susceptible Staphylococcus aureus) infection A49.01
[2021-09-24 16:22] VITALS: BP 150/67; PULSE 70; RESP 16; TEMP 37; O2SAT 95
[2021-09-24 17:45] LABS: Glucose Point of Care 255 mg/dL (70-110)
[2021-09-24] MEDS: cefTRIAXone 2,000 MG in sodium chloride 0.9% (plus) 50 ML 100 MG IV (17:49)
[2021-09-24] MEDS: rivaroxaban 10 mg Tablet 20 MG PO (17:49)
[2021-09-24 20:00] VITALS: BP 126/49; PULSE 78; RESP 17; TEMP 36.6; O2SAT 94
[2021-09-24 20:59] LABS: Glucose Point of Care 187 mg/dL (70-110)
[2021-09-24] MEDS: carvedilol 25 mg Tablet PO (21:20)
[2021-09-24] MEDS: tamsulosin 0.4 mg Capsule 0.8 MG PO (21:20)
[2021-09-25] VITALS (7 sets, daily range): BP systolic 120–154; BP diastolic 43–69; PULSE 61–70; RESP 15–17; TEMP 36.6–37; O2SAT 95–100
[2021-09-25] MEDS: HYDROcodone-acetaminophen 5-325 mg Tablet 1 TAB PO (00:20)
[2021-09-25 03:33] LABS: Alanine Aminotransferase 8 U/L (0-41); Albumin Level 2.8 g/dL (3.5-5.2); Alkaline Phosphatase 71 IU/L (40-130); Anion Gap 14.2 (5-19); Aspartate Amino Transferase 11 U/L (0-40); Blood Urea Nitrogen 13 mg/dL (8-23); Calcium 8.2 mg/dL (8.5-10.5); Carbon Dioxide 23 mmol/L (22-29); Chloride 106 mmol/L (98-107); Globulin 3.1 g/dL (1.3-4.6); Glucose 141 mg/dL (65-115); Osmolality Calculated 290 mOsm/kg (285-295); Potassium 4.2 mmol/L (3.5-5.1); Sodium 139 mmol/L (136-145); Total Bilirubin 0.5 mg/dL (0.15-1.2); Total Protein 5.9 g/dL (6.6-8.7)
[2021-09-25 06:44] LABS: Glucose Point of Care 167 mg/dL (70-110)
[2021-09-25] MEDS: FUROsemide 40 mg Tablet PO (08:40)
[2021-09-25] MEDS: pantoprazole DR 40 mg Tablet PO (08:40)
[2021-09-25] MEDS: carvedilol 25 mg Tablet PO ×2 (08:40→21:12)
[2021-09-25] MEDS: duloxetine 60 mg Capsule PO (08:40)
[2021-09-25] MEDS: isosorbide mononitrate ER 30 mg Tablet PO (08:40)
[2021-09-25] MEDS: cholestyramine powder 4 gm Pkt PO (08:40)
[2021-09-25] MEDS: insulin lispro 100 unit/1 mL SUBCUT ×4 (08:41→21:12)
[2021-09-25 12:07] LABS: Glucose Point of Care 304 mg/dL (70-110)
[2021-09-25] MEDS: cefTRIAXone 2,000 MG in sodium chloride 0.9% (plus) 50 ML 100 MG IV (15:50)
[2021-09-25 17:10] LABS: Glucose Point of Care 156 mg/dL (70-110)
[2021-09-25] MEDS: rivaroxaban 10 mg Tablet 20 MG PO (17:58)
[2021-09-25] MEDS: tamsulosin 0.4 mg Capsule 0.8 MG PO (21:12)
--- NOTE | 2021-09-25 21:22 | P.PN_ITS ---
Subjective Subjective: Interval history: Sitting up in chair. Denies any pain or new discomfort. No chest pain or pressure. No trouble breathing. No fever or chills. No difficulties with PICC line. Reports has been following in wound care clinic with Dr. Meadows. Vitals/I&O/Wt Last Vital Signs Temp 98.6 F 09/25/21 19:45 Pulse 69 09/25/21 19:45 Resp 16 09/25/21 19:45 BP 125/60 09/25/21 19:45 Pulse Ox 100 09/25/21 19:45 09/25/21 09/25/21 09/25/21 06:59 14:59 22:59 Intake Total 600 / 600 290 / 890 Output Total 325 / 1075 700 / 700 Balance -325 / 55 -100 / -100 290 / 190 Physical Exam Const: COMMON NORMALS: no acute distress and patient oriented x3 HENMT: COMMON NORMALS: oropharynx normal Neck/C-Spine: COMMON NORMALS: no JVD Resp: COMMON NORMALS: normal respiratory effort and clear to auscultation bilaterally AUSCULTATION: clear to auscultation bilaterally Cardio: COMMON NORMALS: no JVD, regular rhythm, S1 normal heart sound present, S2 normal heart sound present and No murmurs present (Cardio) RHYTHM: regular rhythm HEART SOUNDS: S1 normal heart sound present and S2 normal heart sound present GI: COMMON NORMALS: Normal to inspection, nondistended, normoactive bowel sounds present, Soft to palpation and non-tender PALPATION: Yes Soft to palpation Extremity: OTHER: R foot prior forestalling potation. Clean dressing in place. Surrounding erythema of right lower extremity Neuro: COMMON NORMALS: patient oriented x3 and moves all extremities Skin: COMMON NORMALS: no rashes or lesions noted GENERAL SKIN EXAM: no rashes or lesions noted Data : 09/23/21 05:45 09/25/21 02:38 Micro: Microbiology 09/20/21 02:23 Blood Culture - Final Blood NO GROWTH AFTER 5 DAYS 09/20/21 02:19 Blood Culture - Final Blood NO GROWTH AFTER 5 DAYS A&P Assessment and plan (1) Abscess: Continue IV antibiotic with goal of 6 weeks of therapy, follow-up with wound care clinic. Status: Acute (2) Osteomyelitis of right foot: Continue ceftriaxone 2 g every 24 hours for 6 weeks via right arm PICC line. Arrangements for outpatient infusions, placement to SNF. Follow-up with wound care clinic. Status: Acute Qualifiers: Osteomyelitis type: chronic, with draining sinus Qualified Code(s): M86.471 - Chronic osteomyelitis with draining sinus, right ankle and foot (3) PVD (peripheral vascular disease): Status: Acute (4) Atrial fibrillation: Status: Acute Qualifiers: Atrial fibrillation type: longstanding persistent Qualified Code(s): I48.11 - Longstanding persistent atrial fibrillation (5) Chronic anticoagulation: Status: Chronic (6) S/P AVR (aortic valve replacement): Status: Chronic (7) Diabetes: Status: Chronic Qualifiers: Diabetes mellitus type: type 2 Diabetes mellitus watcher automat long goods insulin use: with watcher automat long goods use Diabetes mellitus complication status: with circulatory complication Diabetes mellitus complication detail: with other circulatory complications Qualified Code(s): E11.59 - Type 2 diabetes mellitus with other circulatory complications; Z79.4 - skilled nursing (current) use of insulin (8) Congestive heart failure: Status: Acute Qualifiers: Heart failure chronicity: acute Heart failure type: diastolic Jai lified Code(s): I50.31 - Acute diastolic (congestive) heart failure (9) HTN (hypertension): Status: Chronic (10) MSSA (methicillin susceptible Staphylococcus aureus) infection: Status: Acute Additional A&P Information Congestive heart failure: Currently compensated. Last echocardiogram from June 2020 shows an EF 55% with grade 2 diastolic dysfunction, moderately elevated filling pressures, normal positioning bioprosthetic valve. Continue Lasix History of aortic valve replacement History of atrial fibrillation on chronic anticoagulation with Xarelto. C ontinue Coreg. Hypertension: Continue Coreg, Imdur. Type 2 diabetes mellitus: Hold OHA's. Insulin sliding scale. Continue other chronic medication including duloxetine, Imdur, Protonix. Attestations Medical Necessity Statement*: Continue IV antibiotic treatment of right foot abscess, osteomyelitis, arrangements for [facility] facility placement for continued IV antibiotic. 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 [facility] Diagnoses Abscess L02.91 Osteomyelitis of right foot M86.471 Osteomyelitis type: chronic, with draining sinus PVD (peripheral vascular disease) I73.9 Atrial fibrillation I48.11 Atrial fibrillation type: longstanding persistent Chronic anticoagulation Z79.01 S/P AVR (aortic valve replacement) Z95.2 Diabetes E11.59; Z79.4 Diabetes mellitus type: type 2 Diabetes mellitus assisted insulin use: with assisted use Diabetes mellitus complication status: with circulatory complication Diabetes mellitus complication detail: with other circulatory complications Congestive heart failure I50.31 Heart failure chronicity: acute Heart failure type: diastolic HTN (hypertension) I10 MSSA (methicillin susceptible Staphylococcus aureus) infection A49.01
[2021-09-26] MEDS: HYDROcodone-acetaminophen 5-325 mg Tablet 1 TAB PO ×2 (01:55→20:00)
[2021-09-26 03:25] LABS: Alanine Aminotransferase 7 U/L (0-41); Alkaline Phosphatase 69 IU/L (40-130); Anion Gap 15.2 (5-19); Aspartate Amino Transferase 10 U/L (0-40); Blood Urea Nitrogen 10 mg/dL (8-23); Calcium 8.2 mg/dL (8.5-10.5); Carbon Dioxide 22 mmol/L (22-29); Chloride 107 mmol/L (98-107); Globulin 3.1 g/dL (1.3-4.6); Glucose 84 mg/dL (65-115); Osmolality Calculated 288 mOsm/kg (285-295); Potassium 4.2 mmol/L (3.5-5.1); Sodium 140 mmol/L (136-145); Total Bilirubin 0.5 mg/dL (0.15-1.2); Total Protein 6.1 g/dL (6.6-8.7)
[2021-09-26 04:00] VITALS: BP 134/60; PULSE 63; RESP 15; TEMP 36.6; O2SAT 95
[2021-09-26 08:00] VITALS: BP 143/55; PULSE 64; RESP 17; TEMP 36.7; O2SAT 96
[2021-09-26] MEDS: FUROsemide 40 mg Tablet PO (08:23)
[2021-09-26] MEDS: pantoprazole DR 40 mg Tablet PO (08:23)
[2021-09-26] MEDS: carvedilol 25 mg Tablet PO ×2 (08:23→20:00)
[2021-09-26] MEDS: isosorbide mononitrate ER 30 mg Tablet PO (08:23)
[2021-09-26] MEDS: duloxetine 60 mg Capsule PO (08:23)
[2021-09-26] MEDS: cholestyramine powder 4 gm Pkt PO (08:25)
[2021-09-26 11:46] VITALS: BP 144/60; PULSE 63; RESP 17; TEMP 36.3; O2SAT 99
[2021-09-26] MEDS: insulin lispro 100 unit/1 mL SUBCUT ×3 (12:53→21:50)
[2021-09-26 15:40] VITALS: BP 157/70; PULSE 65; RESP 16; TEMP 36.4; O2SAT 98
--- NOTE | 2021-09-26 16:09 | PC.SOCIAL ---
IMM UPDATED IMM dated and initialed and copy given to patient
[2021-09-26 16:52] LABS: Glucose Point of Care 229 mg/dL (70-110)
[2021-09-26] MEDS: rivaroxaban 10 mg Tablet 20 MG PO (17:00)
[2021-09-26] MEDS: cefTRIAXone 2,000 MG in sodium chloride 0.9% (plus) 50 ML 100 MG IV (17:00)
[2021-09-26 20:00] VITALS: BP 175/67; PULSE 70; RESP 18; TEMP 36.7; O2SAT 99
[2021-09-26] MEDS: tamsulosin 0.4 mg Capsule 0.8 MG PO (20:01)
--- NOTE | 2021-09-26 20:48 | PM.PN ---
Subjective Subjective: Interval history: Reports he is doing okay. No new symptoms. Anticipating transfer to assisted facility for IV antibiotic infusions and rehabilitation. Vitals/I&O/Wt Last Vital Signs Temp 98.0 F 09/26/21 20:00 Pulse 70 09/26/21 20:00 Resp 18 09/26/21 20:00 BP 175/67 09/26/21 20:00 Pulse Ox 99 09/26/21 20:00 09/26/21 09/26/21 09/26/21 06:59 14:59 22:59 Intake Total 50 / 50 Output Total 600 / 1300 685 / 685 Balance -600 / -170 -685 / -685 50 / -635 Physical Exam Const: COMMON NORMALS: no acute distress and patient oriented x3 HENMT: COMMON NORMALS: oropharynx normal Neck/C-Spine: COMMON NORMALS: no JVD Resp: COMMON NORMALS: normal respiratory effort and clear to auscultation bilaterally AUSCULTATION: clear to auscultation bilaterally Cardio: COMMON NORMALS: no JVD, regular rhythm, S1 normal heart sound present, S2 normal heart sound present and No murmurs present (Cardio) RHYTHM: regular rhythm HEART SOUNDS: S1 normal heart sound present and S2 normal heart sound present GI: COMMON NORMALS: Normal to inspection, nondistended, normoactive bowel sounds present, Soft to palpation and non-tender PALPATION: Yes Soft to palpation Extremity: OTHER: R foot prior fourth digit amputation. Clean dressing in place. Faint erythema of right foot, improving Neuro: COMMON NORMALS: patient oriented x3 and moves all extremities Skin: COMMON NORMALS: no rashes or lesions noted GENERAL SKIN EXAM: no rashes or lesions noted Data : 09/23/21 05:45 09/26/21 01:58 A&P Assessment and plan (1) Abscess: Continue IV antibiotic with goal of 6 weeks of therapy, follow-up with wound care clinic. Pending prior authorization for placement to assisted facility. Continue cam boot. PT evaluation. Status: Acute (2) Osteomyelitis of right foot: Continue ceftriaxone 2 g every 24 hours for 6 weeks via right arm PICC line. Arrangements for outpatient infusions, placement to SNF. Follow-up with wound care clinic. Status: Acute Qualifiers: Osteomyelitis type: chronic, with draining sinus Qualified Code(s): M86.471 - Chronic osteomyelitis with draining sinus, right ankle and foot (3) PVD (peripheral vascular disease): Status: Acute (4) Atrial fibrillation: Status: Acute Qualifiers: Atrial fibrillation type: longstanding persistent Qualified Code(s): I48.11 - Longstanding persistent atrial fibrillation (5) Chronic anticoagulation: Status: Chronic (6) S/P AVR (aortic valve replacement): Status: Chronic (7) Diabetes: Status: Chronic Qualifiers: Diabetes mellitus type: type 2 Diabetes mellitus watermelon inspector insulin use: with watermelon inspector use Diabetes mellitus complication status: with circulatory complication Diabetes mellitus complication detail: with other circulatory complications Qualified Code(s): E11.59 - Type 2 diabetes mellitus with other circulatory complications; Z79.4 - extermination supervisor (current) use of insulin (8) Congestive heart failure: Status: Acute Qualifiers: Heart failure chronicity: acute Heart failure type: diastolic Qualified Code(s): I50.31 - Acute diastolic (congestive) heart failure (9) HTN (hypertension): Status: Chronic (10) MSSA (methicillin susceptible Staphylococcus aureus) infection: Status: Acute Additional A&P Information Congestive heart failure: Currently compensated. Last echocardiogram from June 2020 shows an EF 55% with grade 2 diastolic dysfunction, moderately elevated filling pressures, normal positioning bioprosthetic valve. Continue Lasix History of aortic valve replacement History of atrial fibrillation on chronic anticoagulation with Xarelto. Continue Coreg. Hypertension: Continue Coreg, Imdur. Type 2 diabetes mellitus: Hold OHA's. Insulin sliding scale. Continue other chronic medication including duloxetine, Imdur, Protonix. Attestations Medical Necessity Statement*: Continue IV antibiotics pending prior authorization for placement to assisted facility for continued care. Coding Level of Care Code Acute Dictaphone Technician for [facility] Fwd Diagnoses Abscess L02.91 Osteomyelitis of right foot M86.471 Osteomyelitis type: chronic, with draining sinus PVD (peripheral vascular disease) I73.9 Atrial fibrillation I48.11 Atrial fibrillation type: longstanding persistent Chronic anticoagulation Z79.01 S/P AVR (aortic valve replacement) Z95.2 Diabetes E11.59; Z79.4 Diabetes mellitus type: type 2 Diabetes mellitus watermelon inspector insulin use: with group home use Diabetes mellitus complication status: with circulatory complication Diabetes mellitus complication detail: with other circulatory complications Congestive heart failure I50.31 Heart failure chronicity: acute Heart failure type: diastolic HTN (hypertension) I10 MSSA (methicillin susceptible Staphylococcus aureus) infection A49.01
[2021-09-26 21:25] LABS: Glucose Point of Care 267 mg/dL (70-110)
[2021-09-27] VITALS: BP 129/63; PULSE 63; RESP 17; TEMP 36.7; O2SAT 98
[2021-09-27 04:00] VITALS: BP 122/69; PULSE 60; RESP 17; TEMP 36.8; O2SAT 96
[2021-09-27 06:54] LABS: Glucose Point of Care 95 mg/dL (70-110)
[2021-09-27] MEDS: duloxetine 60 mg Capsule PO (07:27)
[2021-09-27] MEDS: cholestyramine powder 4 gm Pkt PO (07:27)
[2021-09-27] MEDS: pantoprazole DR 40 mg Tablet PO (07:28)
[2021-09-27] MEDS: isosorbide mononitrate ER 30 mg Tablet PO (07:28)
[2021-09-27] MEDS: carvedilol 25 mg Tablet PO ×2 (07:28→20:13)
[2021-09-27] MEDS: FUROsemide 40 mg Tablet PO (07:28)
[2021-09-27 07:54] VITALS: BP 133/52; PULSE 64; RESP 17; TEMP 36.5; O2SAT 96
[2021-09-27 08:37] LABS: Adenovirus Not Detected (NOT DETECT); Chlamydia Pneumoniae Not Detected (NOT DETECT); Coronavirus 229E,HKU1,NL63,OC4 Not Detected (NOT DETECT); Human Metapneumovirus Not Detected (NOT DETECT); Human Rhinovirus/Enterovirus Not Detected (NOT DETECT); Influenza A Not Detected (NOT DETECT); Influenza A H1 Not Detected (NOT DETECT); Influenza A H1-2009 Not Detected (NOT DETECT); Influenza A H3 Not Detected (NOT DETECT); Influenza B Not Detected (NOT DETECT); Mycoplasma Pneumoniae Not Detected (NOT DETECT); Parainfluenza Virus Type 1 Not Detected (NOT DETECT); Parainfluenza Virus Type 2 Not Detected (NOT DETECT); Parainfluenza Virus Type 3 Not Detected (NOT DETECT); Parainfluenza Virus Type 4 Not Detected (NOT DETECT); Respiratory Syncytial Virus A Not Detected (NOT DETECT); Respiratory Syncytial Virus B Not Detected (NOT DETECT); SARS-COV-2 Not Detected (NOT DETECT)
--- NOTE | 2021-09-27 09:20 | PC.CHAP ---
Pastoral Care Encounter/Spiritual Assessment Type of Contact [] Declined emr trainer visit [] Patient/Family/Request visit [] Outpatient visit [] Follow-up visit [] Physician referral [] Code/Alert [x] Routine visit [] Staff referral [] Actively dying [] Patient sleeping [] Family support [] [] Out of room [] Palliative care [] [] Receiving care in room [] Pre-surgical visit [] Trauma [] Long length of stay [] ICU visit [] Other: Relational/Emotional Strength [] Patient feels connected with others/family/visitors/staff [] Distress [] Loneliness/isolation [] Abandonment Spirituality of Patient [] Person of [place]ona [] Attends Anglican of their [place] [] Believes in Prayer [] Reads Bible or Evangelical materials [] There are Spiritual issues to be addressed Cro Interventions [] Prayer [] Active listening [] Non-anxious presence [] Spiritual/emotional support [] Crisis/trauma care [] Spiritual counseling [] Bereavement support [] Provided bereavement packet [] Provided Bible/devotional materials [] Provided toy/stuffed animal, coloring book to patient or family member [] Provided Communion [] Anointing/[place] [] Salvation [] Completed spiritual assessment [] Other: Impact on Illness or Injury [] Angry [] Fearful [] Anxious [] Often cries [] Exhaustion [] Unable to work [] Unable to attend church [] Unable to walk/stand [] Unable to read [] Unable to drive [] Unable to eat/drink [] Unable to sleep [] Unable to be with family [] Patient intubated [] Other: Summary patient refused prayer Time spent with patient
[2021-09-27 11:09] VITALS: BP 133/66; PULSE 69; RESP 16; TEMP 36.9; O2SAT 98
[2021-09-27 11:13] LABS: Glucose Point of Care 237 mg/dL (70-110)
[2021-09-27] MEDS: insulin lispro 100 unit/1 mL SUBCUT ×3 (11:45→20:24)
--- NOTE | 2021-09-27 14:29 | P.PN_ITS ---
Subjective Subjective: Interval history: Denies any new symptoms. Redness continues to decrease in the right foot. Vitals/I&O/Wt Last Vital Signs Temp 98.4 F 09/27/21 11:09 Pulse 69 09/27/21 11:09 Resp 16 09/27/21 11:09 BP 133/66 09/27/21 11:09 Pulse Ox 98 09/27/21 11:09 09/26/21 09/27/21 09/27/21 22:59 06:59 14:59 Intake Total 290 / 290 480 / 770 720 / 720 Output Total 380 / 1065 380 / 1445 250 / 250 Balance -90 / -775 100 / -675 470 / 470 Physical Exam Const: COMMON NORMALS: no acute distress and patient oriented x3 HENMT: COMMON NORMALS: oropharynx normal Neck/C-Spine: COMMON NORMALS: no JVD Resp: COMMON NORMALS: normal respiratory effort and clear to auscultation bila terally AUSCULTATION: clear to auscultation bilaterally Cardio: COMMON NORMALS: no JVD, regular rhythm, S1 normal heart sound present, S2 normal heart sound present and No murmurs present (Cardio) RHYTHM: regular rhythm HEART SOUNDS: S1 normal heart sound present and S2 normal heart sound present GI: COMMON NORMALS: Normal to inspection, nondistended, normoactive bowel sounds present, Soft to palpation and non-tender PALPATION: Yes Soft to palpation Extremity: OTHER: R foot prior fourth digit amputation. Clean dressing in place. Improving faint erythema of right foot Neuro: COMMON NORMALS: patient oriented x3 and moves all extremities Skin: COMMON NORMALS: no rashes or lesions noted GENERAL SKIN EXAM: no rashes or lesions noted Data : 09/23/21 05:45 09/26/21 01:58 A&P Assessment and plan (1) Osteomyelitis of right foot: Continue ceftriaxone 2 g every 24 hours for 6 weeks via right arm PICC line. Arrangements for continued infusions, placement to SNF. Pending prior authorization for [facility] to [facility] for continuation and com pletion of treatment course. He lives alone. He is unable to drive. Would be unable to complete antibiotic infusion course at home. Follow-up with wound care clinic. Status: Acute Qualifiers: Osteomyelitis type: chronic, with draining sinus Qualified Code(s): M86.471 - Chronic osteomyelitis with draining sinus, right ankle and foot (2) Abscess: Continue IV antibiotic infusions. Continue IV antibiotic with goal of 6 weeks of therapy, follow-up with wound care clinic. Continue cam boot. PT evaluation. Status: Acute (3) PVD (peripheral vascular disease): Status: Acute (4) Atrial fibrillation: Status: Acute Qualifiers: Atrial fibrillation type: longstanding persistent Qualified Code(s): I48.11 - Longstanding persistent atrial fibrillation (5) Chronic anticoagulation: Status: Chronic (6) S/P AVR (aortic valve replacement): Status: Chronic (7) Diabetes: Status: Chronic Qualifiers: Diabetes mellitus type: type 2 Diabetes mellitus intermediate teacher insulin use: with chcf use Diabetes mellitus complication status: with circulatory complication Diabetes mellitus complication detail: with other circulatory complications Qualified Code(s): E11.59 - Type 2 diabetes mellitus with other circulatory complications; Z79.4 - intermediate teacher (current) use of insulin (8) Congestive heart failure: Status: Acute Qualifiers: Heart failure chronicity: acute Heart failure type: diastolic Qualified Code(s): I50.31 - Acute diastolic (congestive) heart failure (9) HTN (hypertension): Status: Chronic (10) MSSA (methicillin susceptible Staphylococcus aureus) infection: Status: Acute Additional A&P Information Congestive heart failure: Currently compensated. Last echocardiogram from June 2020 shows an EF 55% with grade 2 diastolic dysfunction, moderately elevated filling pressures, normal positioning bioprosthetic valve. Continue Lasix History of aortic valve replacement History of atrial fibrillation on chronic anticoagulation with Xarelto. Continue Coreg. Hypertension: Continue Coreg, Imdur. Type 2 diabetes mellitus: Hold OHA's. Insulin sliding scale. Continue other chronic medication including duloxetine, Imdur, Protonix. Attestations Medical Necessity Statement*: Continue IV antibiotic infusions for osteomyel itis, right foot infection, abscess, improving cellulitis, arrangements for continued post discharge IV antibiotic therapy which she is unable to complete at home. Coding Level of Care Code Acute Incubator Machine Operator for [facility] Fwd Diagnoses Osteomyelitis of right foot M86.471 Osteomyelitis type: chronic, with draining sinus Abscess L02.91 PVD (peripheral vascular disease) I73.9 Atrial fibrillation I48.11 Atrial fibrillation type: longstanding persistent Chronic anticoagulation Z79.01 S/P AVR (aortic valve replacement) Z95.2 Diabetes E11.59; Z79.4 Diabetes mellitus type: type 2 Diabetes mellitus chcf insulin use: with chcf use Diabetes mellitus complication status: with circulatory complication Diabetes mellitus complication detail: with other circulatory complications Congestive heart failure I50.31 Heart failure chronicity: acute Heart failure type: diastolic HTN (hypertension) I10 MSSA (methicillin susceptible Staphylococcus aureus) infection A49.01
[2021-09-27 15:17] VITALS: BP 149/67; PULSE 67; RESP 16; TEMP 36.8; O2SAT 98
[2021-09-27 16:48] LABS: Glucose Point of Care 207 mg/dL (70-110)
[2021-09-27] MEDS: cefTRIAXone 2,000 MG in sodium chloride 0.9% (plus) 50 ML 100 MG IV (17:04)
[2021-09-27] MEDS: rivaroxaban 10 mg Tablet 20 MG PO (17:04)
[2021-09-27 20:00] VITALS: BP 147/49; PULSE 65; RESP 18; TEMP 36.8; O2SAT 97
[2021-09-27] MEDS: tamsulosin 0.4 mg Capsule 0.8 MG PO (20:13)
[2021-09-27 20:26] LABS: Glucose Point of Care 249 mg/dL (70-110)
[2021-09-27 20:26] LABS: Glucose Point of Care 263 mg/dL (70-110)
[2021-09-27 20:26] LABS: Glucose Point of Care 261 mg/dL (70-110)
[2021-09-27 20:26] LABS: Glucose Point of Care 123 mg/dL (70-110)
[2021-09-27 20:26] LABS: Glucose Point of Care 214 mg/dL (70-110)
[2021-09-27] MEDS: acetaminophen 325 mg Tablet 650 MG PO (23:10)
[2021-09-28] VITALS: BP 148/61; PULSE 68; RESP 16; O2SAT 98
[2021-09-28 04:00] VITALS: BP 153/66; PULSE 64; RESP 18; TEMP 36.8; O2SAT 96
[2021-09-28 07:05] VITALS: BP 142/70; PULSE 70; RESP 16; TEMP 36.7; O2SAT 96
[2021-09-28 07:31] LABS: Glucose Point of Care 162 mg/dL (70-110)
[2021-09-28] MEDS: FUROsemide 40 mg Tablet PO (09:03)
[2021-09-28] MEDS: carvedilol 25 mg Tablet PO ×2 (09:03→20:37)
[2021-09-28] MEDS: pantoprazole DR 40 mg Tablet PO (09:03)
[2021-09-28] MEDS: duloxetine 60 mg Capsule PO (09:03)
[2021-09-28] MEDS: isosorbide mononitrate ER 30 mg Tablet PO (09:04)
[2021-09-28] MEDS: cholestyramine powder 4 gm Pkt PO (09:04)
[2021-09-28 10:53] VITALS: BP 137/72; PULSE 74; RESP 16; TEMP 36.8; O2SAT 95
[2021-09-28 11:05] LABS: Glucose Point of Care 284 mg/dL (70-110)
[2021-09-28] MEDS: insulin lispro 100 unit/1 mL SUBCUT ×2 (11:35→20:37)
--- NOTE | 2021-09-28 11:53 | PC.SOCIAL ---
IMM Update pg 2 of IMM updated and reviewed w/ patient. Copy provided.
--- NOTE | 2021-09-28 13:36 | PM.PN ---
Subjective Subjective: Interval history: Denies any new symptoms. States he is doing all right. Denies chest pain or pressure. No trouble breathing. Vitals/I&O/Wt Last Vital Signs Temp 98.3 F 09/28/21 10:53 Pulse 74 09/28/21 10:53 Resp 16 09/28/21 10:53 BP 137/72 09/28/21 10:53 Pulse Ox 95 09/28/21 10:53 09/27/21 09/28/21 09/28/21 22:59 06:59 14:59 Intake Total 530 / 1250 240 / 1490 840 / 840 Output Total 200 / 450 Balance 530 / 1000 40 / 1040 840 / 840 Physical Exam Narrative: EXAM NARRATIVE: In chair. Const: COMMON NORMALS: no acute distress and patient oriented x3 HENMT: COMMON NORMALS: oropharynx normal Neck/C-Spine: COMMON NORMALS: no JVD Resp: COMMON NORMALS: normal respiratory effort and clear to auscultation bilaterally AUSCULTATION: clear to auscultation bilaterally Cardio: COMMON NORMALS: no JVD, regular rhythm, S1 normal heart sound present, S2 normal heart sound present and No murmurs present (Cardio) RHYTHM: regular rhythm HEART SOUNDS: S1 normal heart sound present and S2 normal heart sound present GI: COMMON NORMALS: Normal to inspection, nondistended, normoactive bowel sounds present, Soft to palpation and non-tender PALPATION: Yes Soft to palpation Extremity: OTHER: R foot prior fourth digit amputation. Clean dressing in place. Improving faint erythema of right foot Neuro: COMMON NORMALS: patient oriented x3 and moves all extremities Skin: COMMON NORMALS: no rashes or lesions noted GENERAL SKIN EXAM: no rashes or lesions noted Data : 09/23/21 05:45 09/26/21 01:58 A&P Assessment and plan (1) Osteomyelitis of right foot: Continue ceftriaxone 2 g every 24 hours for 6 weeks via right arm PICC line. Arrangements for continued infusions, placement to SNF. Pending authorization for [facility] for continuation and completion of treatment course. He lives alone. He is unable to drive. Would be unable to complete antibiotic infusion course at home. Follow-up with wound care clinic. Status: Acute Qualifiers: Osteomyelitis type: chronic, with draining sinus Qualified Code(s): M86.471 - Chronic osteomyelitis with draining sinus, right ankle and foot (2) Abscess: Continue IV antibiotic infusions. Continue IV antibiotic with goal of 6 weeks of therapy, follow-up with wound care clinic. Continue cam boot. Status: Acute (3) PVD (peripheral vascular disease): Status: Acute (4) Atrial fibrillation: Status: Acute Qualifiers: Atrial fibrillation type: longstanding persistent Qualified Code(s): I48.11 - Longstanding persistent atrial fibrillation (5) Chronic anticoagulation: Status: Chronic (6) S/P AVR (aortic valve replacement): Status: Chronic (7) Diabetes: Status: Chronic Qualifiers: Diabetes mellitus type: type 2 Diabetes mellitus extermination supervisor insulin use: with extermination supervisor use Diabetes mellitus complication status: with circulatory complication Diabetes mellitus complication detail: with other circulatory complications Qualified Code(s): E11.59 - Type 2 diabetes mellitus with other circulatory complications; Z79.4 - half-way (current) use of insulin (8) Congestive heart failure: Status: Acute Qualifiers: Heart failure chronicity: acute Heart failure type: diastolic Qualified Code(s): I50.31 - Acute diastolic (congestive) heart failure (9) HTN (hypertension): Status: Chronic (10) MSSA (methicillin susceptible Staphylococcus aureus) infection: Status: Acute Additional A&P Information Congestive heart failure: Currently compensated. Last echocardiogram from June 2020 shows an EF 55% with grade 2 diastolic dysfunction, moderately elevated filling pressures, normal positioning bioprosthetic valve. Continue Lasix History of aortic valve replacement History of atrial fibrillation on chronic anticoagulation with Xarelto. Continue Coreg. Hypertension: Continue Coreg, Imdur. Type 2 diabetes mellitus: Hold OHA's. Insulin sliding scale. Glucose could be better, but is fluctuating, yesterday down to 95, will not add Lantus for now to avoid hypoglycemia. Is already on high-dose sliding scale. Continue other chronic medication including duloxetine, Imdur, Protonix. Attestations Medical Necessity Statement*: Continue admission pending authorization to continue and complete IV antibiotic course for osteomyelitis, foot infection with underlying diabetes, in a gentleman who lives alone, unable to drive. Coding Level of Care Code Acute Funds Transfer Clerk for [facility] Fwd Diagnoses Osteomyelitis of right foot M86.471 Osteomyelitis type: chronic, with draining sinus Abscess L02.91 PVD (peripheral vascular disease) I73.9 Atrial fibrillation I48.11 Atrial fibrillation type: longstanding persistent Chronic anticoagulation Z79.01 S/P AVR (aortic valve replacement) Z95.2 Diabetes E11.59; Z79.4 Diabetes mellitus type: type 2 Diabetes mellitus detention insulin use: with extermination supervisor use Diabetes mellitus complication status: with circulatory complication Diabetes mellitus complication detail: with other circulatory complications Congestive heart failure I50.31 Heart failure chronicity: acute Heart failure type: diastolic HTN (hypertension) I10 MSSA (methicillin susceptible Staphylococcus aureus) infection A49.01
[2021-09-28 15:34] VITALS: BP 141/70; PULSE 64; RESP 17; TEMP 36.7; O2SAT 94
[2021-09-28 17:10] LABS: Glucose Point of Care 116 mg/dL (70-110)
[2021-09-28] MEDS: cefTRIAXone 2,000 MG in sodium chloride 0.9% (plus) 50 ML 100 MG IV (17:17)
[2021-09-28] MEDS: rivaroxaban 10 mg Tablet 20 MG PO (17:17)
[2021-09-28 20:00] VITALS: BP 174/68; PULSE 72; RESP 18; TEMP 36.6; O2SAT 99
[2021-09-28 20:12] LABS: Glucose Point of Care 263 mg/dL (70-110)
[2021-09-28] MEDS: tamsulosin 0.4 mg Capsule 0.8 MG PO (20:37)
[2021-09-28] MEDS: acetaminophen 325 mg Tablet 650 MG PO (22:26)
[2021-09-29] VITALS: BP 145/64; PULSE 63; RESP 16; TEMP 36.8; O2SAT 97
[2021-09-29 04:27] VITALS: BP 158/62; PULSE 68; RESP 16; TEMP 36.4; O2SAT 97
[2021-09-29 06:31] LABS: Glucose Point of Care 163 mg/dL (70-110)
[2021-09-29 08:00] VITALS: BP 159/57; PULSE 72; RESP 14; TEMP 36.9; O2SAT 97
[2021-09-29] MEDS: carvedilol 25 mg Tablet PO (08:02)
[2021-09-29] MEDS: isosorbide mononitrate ER 30 mg Tablet PO (08:02)
[2021-09-29] MEDS: FUROsemide 40 mg Tablet PO (08:02)
[2021-09-29] MEDS: pantoprazole DR 40 mg Tablet PO (08:02)
[2021-09-29] MEDS: insulin lispro 100 unit/1 mL SUBCUT (08:03)
[2021-09-29] MEDS: duloxetine 60 mg Capsule PO (08:03)
[2021-09-29] MEDS: cholestyramine powder 4 gm Pkt PO (08:56)
--- NOTE | 2021-09-29 10:16 | PM.DCS ---
Discharge Providers Date of Admission: 09/19/21 19:38 Date of Discharge: September 29, 2021 Attending Provider at Admission: Carlton Simpson MD Attending Provider at Discharge: Alo De Los Santos Primary Care Provider: Chon Bradshaw DO Diagnoses at Discharge Discharge Diagnosis (1) Osteomyelitis of right foot: Status: Acute Qualifiers: Osteomyelitis type: chronic, with draining sinus Qualified Code(s): M86.471 - Chronic osteomyelitis with draining sinus, right ankle and foot (2) Abscess: Status: Acute (3) PVD (peripheral vascular disease): Status: Acute Permanent problem details: 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 on 07/21/2021 (4) Atrial fibrillation: Status: Acute Permanent problem details: Paroxysmal Qualifiers: Atrial fibrillation type: longstanding persistent Qualified Code(s): I48.11 - Longstanding persistent atrial fibrillation (5) Chronic anticoagulation: Status: Chronic Permanent problem details: Xarelto (6) S/P AVR (aortic valve replacement): Status: Chronic Permanent problem details: Bioprosthetic, bovine (7) Diabetes: Status: Chronic Qualifiers: Diabetes mellitus type: type 2 Diabetes mellitus prison insulin use: with manager terminal use Diabetes mellitus complication status: with circulatory complication Diabetes mellitus complication detail: with other circulatory complications Qualified Code(s): E11.59 - Type 2 diabetes mellitus with other circulatory complications; Z79.4 - alf (current) use of insulin (8) Congestive heart failure: Status: Acute Qualifiers: Heart failure chronicity: acute Heart failure type: diastolic Qualified Code(s): I50.31 - Acute diastolic (congestive) heart failure (9) HTN (hypertension): Status: Chronic (10) MSSA (methicillin susceptible Staphylococcus aureus) infection: Status: Acute Reason for Visit Reason for Visit: Cellulitis Hospital Course Hospital Course Pleasant 71-year-old gentleman with history of DM 2, PVD, with finding of severe right tibial peroneal artery stenosis, severe proximal peroneal artery stenosis, status post revascularization with balloon angioplasty on 07/21/2021, history of prior amputation of fourth toe secondary to osteomyelitis/necrosis, following with wound care clinic for diabetic foot ulcer on right amputation site was admitted and treated for right foot infection with finding of surrounding cellulitis, as well as soft tissue abscess on plantar side of the forefoot between distal aspect of third and fourth metatarsal bones, diffuse cellulitis but also osteomyelitis changes involving second, third, fourth metatarsal bones and third digit proximal phalanx seen on CT of the foot. He was assessed by surgery, with foot infection followed with IV antibiotic treatment, wet-to-dry dressings, and advised with finding that risks would outweigh the benefits of drainage of 1 cm noted abscess. Bedside aspiration was attempted. Blood cultures have been negative. Tissue culture growing MSSA. Antibiotics de-escalated to ceftriaxone alone on which he will continue for the next 6 weeks with infusions and dressing changes at [facility] due to him living alone and being unable to drive currently. Cellulitis is resolving, other changes improving. He is encouraged to resume follow-up with wound care clinic for reassessment and continued care. Physical Exam Narrative: EXAM NARRATIVE: In chair. Const: COMMON NORMALS: no acute distress and patient oriented x3 HENMT: COMMON NORMALS: oropharynx normal Neck/C-Spine: COMMON NORMALS: no JVD Resp: COMMON NORMALS: normal respiratory effort and clear to auscultation bilaterally AUSCULTATION: clear to auscultation bilaterally Cardio: COMMON NORMALS: no JVD, regular rhythm, S1 normal heart sound present, S2 normal heart sound present and No murmurs present (Cardio) RHYTHM: regular rhythm HEART SOUNDS: S1 normal heart sound present and S2 normal heart sound present GI: COMMON NORMALS: Normal to inspection, nondistended, normoactive bowel sounds present, Soft to palpation and non-tender PALPATION: Yes Soft to palpation Extremity: OTHER: R foot prior fourth digit amputation. Clean dressing in place. Resolving minimal erythema of right foot Neuro: COMMON NORMALS: patient oriented x3 and moves all extremities Skin: COMMON NORMALS: no rashes or lesions noted GENERAL SKIN EXAM: no rashes or lesions noted Discharge Data Data Completed and Pending: Completed Studies During Hospitalization Category Date Time Status CT foot RT w con [id number] Routine Cat Scan 09/19/21 22:[address] lower leg RT w con [id number] Routine Cat Scan 09/19/21 22:39 Completed CXRP [XR chest 1V portable [id number]] S tat Exams 09/22/21 13:25 Completed Labs from last 24 hours 09/29/21 09/28/21 09/28/21 06:25 20:03 17:00 POC Glucose 163 H 263 H 116 H 09/28/21 10:53 POC Glucose 284 H Vitals: Last Vital Signs Temp 98.4 F 09/29/21 08:00 Pulse 72 09/29/21 08:00 Resp 14 09/29/21 08:00 BP 159/57 09/29/21 08:00 Pulse Ox 97 09/29/21 08:00 Discharge Plan Discharge Patient Disposition: Xfer SNF Condition: Stable Prescriptions: New ceftriaxone 2 gram recon soln 2 g IM Q24H 42 Days Qty: 42 RF: 0 hydrocodone-acetaminophen 5-325 mg Tablet 1 tab PO Q8H PRN (Reason: pain) Qty: 10 RF: 0 Continued duloxetine [Cymbalta] 60 mg capsule,delayed release(DR/EC) 60 mg PO DAILY RF: 0 tamsulosin [Flomax] 0.4 mg capsule 0.8 mg PO BEDTIME RF: 0 cholecalciferol (vitamin D3) 25 mcg (1,000 unit) capsule 25 mcg PO DAILY RF: 0 zinc 50 mg tablet 50 mg PO DAILY RF: 0 carvedilol 25 mg tablet 25 mg PO BID Qty: 180 RF: 3 potassium chloride 20 mEq tablet extended release 20 meq PO QAM Qty: 90 RF: 3 losartan 100 mg tablet 100 mg PO QAM Qty: 90 RF: 3 multivitamin Tablet 1 tab PO DAILY RF: 0 ascorbic acid (vitamin C) [Vitamin C] 1,000 mg Tablet 1,000 mg PO QAM RF: 0 Jardiance 25 mg tablet 25 mg PO QAM RF: 0 Xarelto 20 mg tablet 20 mg PO QPM RF: 0 furosemide 40 mg tablet 40 mg PO BID RF: 0 insulin aspart U-100 [Novolog PenFill U-100 Insulin] 100 unit/mL cartridge 25 unit SUBCUT TID RF: 0 Tresiba FlexTouch U-200 200 unit/mL (3 mL) insulin pen 75 unit SUBCUT BEDTIME RF: 0 Discontinued sulfamethoxazole-trimethoprim [Bactrim DS] 800-160 mg tablet 1 tab PO BID Qty: 10 RF: 0 spironolactone 25 mg tablet 25 mg PO QAM RF: 0 Discharge Orders: Discharge Order (Routine); Ordered 09/26/21 Ordered By: Alo De Los Santos Referrals: SNF, PCP [Other] - 4-7 days [facility] [Outside] WOUND CARE CLINIC, [Staff Physician] - 10/03/21 9:15 am Discharge Diet: Cardiac and Diabetic Discharge Activity: As per PT/OT instructions Patient Instructions: Hydrocodone/Acetaminophen (By mouth), Ceftriaxone (By injection) Activity Restrictions/Additional Instructions: R foot: wet mini kerlix gauze into the inter-toe wound, dry kerlix around it. Elevate foot whenever possible. Cam boot. Weightbearing right heel only. Continue IV antibiotics, Rocephin 2 g IV daily for 6 weeks. Continue PICC line care. Remove PICC line subsequently. Discharge Attestations Time Spent in Discharge Care*: greater than 30 min Quality Metrics Clinical Quality Measures During this hospital stay, did patient experience: None Coding Level of Care Code Acute g [facility] note Diagnoses Osteomyelitis of right foot M86.471 Osteomyelitis type: chronic, with draining sinus Abscess L02.91 PVD (peripheral vascular disease) I73.9 Atrial fibrillation I48.11 Atrial fibrillation type: longstanding persistent Chronic anticoagulation Z79.01 S/P AVR (aortic valve replacement) Z95.2 Diabetes E11.59; Z79.4 Diabetes mellitus type: type 2 Diabetes mellitus manager terminal insulin use: with prison use Diabetes mellitus complication status: with circulatory complication Diabetes mellitus complication detail: with other circulatory complications Congestive heart failure I50.31 Heart failure chronicity: acute Heart failure type: diastolic HTN (hypertension) I10 MSSA (methicillin susceptible Staphylococcus aureus) infection A49.01
[2021-09-29 11:20] VITALS: BP 159/57; PULSE 72; RESP 14; TEMP 36.9; O2SAT 97
== END 2021-09-29 11:21 | disposition skilled nursing facility (03) | DRG 637 ==
LOC: MEDSURG 19:43
PROVIDERS: Student in an Organized Health Care Education/Training Program; Admitting Provider Student in an Organized Health Care Education/Training Program; PCP Internal Medicine; Visit Provider Internal Medicine
DX: E11.628 Type 2 diabetes mellitus with other skin complications (principal); I50.31 Acute diastolic (congestive) heart failure; L03.115 Cellulitis of right lower limb; M86.471 Chronic osteomyelitis with draining sinus, right ankle and foot; L02.611 Cutaneous abscess of right foot; I48.11 Longstanding persistent atrial fibrillation; E11.69 Type 2 diabetes mellitus with other specified complication; E11.51 Type 2 diabetes mellitus with diabetic peripheral angiopathy without gangrene; I70.201 Unspecified atherosclerosis of native arteries of extremities, right leg; E11.621 Type 2 diabetes mellitus with foot ulcer; L97.519 Non-pressure chronic ulcer of other part of right foot with unspecified severity; B95.61 Methicillin susceptible Staphylococcus aureus infection as the cause of diseases classified elsewhere; I11.0 Hypertensive heart disease with heart failure; E78.5 Hyperlipidemia, unspecified; E66.9 Obesity, unspecified; N40.0 Benign prostatic hyperplasia without lower urinary tract symptoms; Z68.32 Body mass index [BMI] 32.0-32.9, adult; Z79.4 Long term (current) use of insulin; Z95.820 Peripheral vascular angioplasty status with implants and grafts; Z89.421 Acquired absence of other right toe(s); Z79.01 Long term (current) use of anticoagulants; Z95.2 Presence of prosthetic heart valve; Z86.73 Personal history of transient ischemic attack (TIA), and cerebral infarction without residual deficits; Z85.828 Personal history of other malignant neoplasm of skin; Z87.891 Personal history of nicotine dependence; Z90.49 Acquired absence of other specified parts of digestive tract
CPT/HCPCS: 11043; 12345; 36415; 36416; 36569; 71045; 73630; 73701; 80053; 80202; 81003; 82962; 85025; 85651; 86140; 87040; 87070; 87077; 87176; 87186; 87205; 87635; 87641; 96372; 97161; 97530; J0696; J1815; J2270; J2543; J3370; Q9967

== ENCOUNTER → 2021-10-05 12:58 | Day surgery (SDC) | payer MEDICARE, SELFPAY ==
[2021-10-05 13:17] VITALS: BP 112/55; PULSE 93; RESP 18; TEMP 36.5; O2SAT 98
--- NOTE | 2021-10-05 13:20 | PC.NURSE ---
Pt has existing PICC line to right AC [facility] Site flushed with NS. Good blood return noted. Right PICC used for Injectafer infusion. Flushed per protocol following infusion. Pt tolerated well.
[2021-10-05] MEDS: ferric carboxy (IVPB) 750 MG in sodium chloride 0.9% (100 ml) 100 ML 345 MG IV (13:25)
== END ==
PROVIDERS: PCP Internal Medicine; Visit Provider Internal Medicine
DX: D50.9 Iron deficiency anemia, unspecified (principal)
CPT/HCPCS: 96365; J1439

== ENCOUNTER → 2021-10-18 13:13 | Day surgery (SDC) | payer MEDICARE, SELFPAY ==
[2021-10-18 13:29] VITALS: BP 131/46; PULSE 77; RESP 18; TEMP 37.7; O2SAT 99
--- NOTE | 2021-10-18 13:30 | PC.NURSE ---
Pt to GI lab for second infusion of Injectafer. PICC in place to right upper arm. Flushed with 10 mL NS. Good blood return noted. Infusion started. No reaction noted.
[2021-10-18] MEDS: ferric carboxy (IVPB) 750 MG in sodium chloride 0.9% (100 ml) 100 ML 345 MG IV (13:32)
== END ==
PROVIDERS: PCP Internal Medicine; Visit Provider Internal Medicine
DX: D50.9 Iron deficiency anemia, unspecified (principal)
CPT/HCPCS: 96365; J1439

== ENCOUNTER 2021-11-20 13:31 | Outpatient (CLI) | payer MEDICARE, SELFPAY | END 2021-11-20 13:32 | disposition home or self-care (01) | LOC: WOUND 13:33 | PROVIDERS: PCP Internal Medicine; Visit Provider Emergency Medicine | DX: E11.621 Type 2 diabetes mellitus with foot ulcer (principal); L97.512 Non-pressure chronic ulcer of other part of right foot with fat layer exposed; Z89.421 Acquired absence of other right toe(s); Z87.891 Personal history of nicotine dependence | CPT/HCPCS: 11042; 99213 ==

== ENCOUNTER 2021-11-27 14:57 | Outpatient (CLI) | payer MEDICARE, SELFPAY | END 2021-11-27 14:58 | disposition home or self-care (01) | LOC: WOUND 14:58 | PROVIDERS: PCP Internal Medicine; Visit Provider Thoracic Surgery (Cardiothoracic Vascular Surgery) | DX: E11.621 Type 2 diabetes mellitus with foot ulcer (principal); L97.513 Non-pressure chronic ulcer of other part of right foot with necrosis of muscle; Z89.421 Acquired absence of other right toe(s); Z87.891 Personal history of nicotine dependence | CPT/HCPCS: 11043 ==

== ENCOUNTER 2021-12-04 14:35 | Outpatient (CLI) | payer MEDICARE, SELFPAY ==
--- NOTE | 2021-12-04 15:40 | XRR_ITS ---
PROCEDURE INFORMATION: Exam: XR Right Foot Exam date and time: 12/04/2021 3:40 PM Age: 71 years old Clinical indication: Condition or disease; Other: Foot ulcer; Prior surgery; Surgery type: RT foot; Additional info: Type ii dm w/ foot ulcer TECHNIQUE: Imaging protocol: XR Right foot. Views: 3 or more views. COMPARISON: CT foot RT w con [id number] 09/19/2021 11:38 PM FINDINGS: Bones/joints: There is evidence of amputation of the distal shaft of the 2nd 3rd and 4th metatarsal. The proximal aspect of the proximal phalange of the 2nd and 3rd digits have also been amputated. The 4th toe has been amputated. These findings represent a change since prior examination. There is bony erosion seen in the proximal shaft of the proximal phalange of the 2nd toe. This finding correlates with osteomyelitis. Soft tissues: Diffuse soft tissue edema is seen in the 2nd and 3rd digits. XR/XR foot RT min 3V* [id number] IMPRESSION: 1. Osteomyelitis is seen in the proximal aspect of the 2nd toe. 2. Diffuse soft tissue edema is seen in the 2nd and 3rd toes. 3. Amputation of the 4th toe. 4. Amputation of the distal aspect of the 2nd 3rd and 4th metatarsals.
== END 2021-12-04 14:36 | disposition home or self-care (01) ==
LOC: WOUND 14:36
PROVIDERS: PCP Internal Medicine; Visit Provider Thoracic Surgery (Cardiothoracic Vascular Surgery)
DX: E11.621 Type 2 diabetes mellitus with foot ulcer (principal); L97.512 Non-pressure chronic ulcer of other part of right foot with fat layer exposed; I96 Gangrene, not elsewhere classified; Z89.421 Acquired absence of other right toe(s); Z87.891 Personal history of nicotine dependence
CPT/HCPCS: 73630; A6197

== ENCOUNTER 2021-12-11 13:59 | Outpatient (CLI) | payer MEDICARE, SELFPAY | END 2021-12-11 14:00 | disposition home or self-care (01) | LOC: WOUND 14:00 | PROVIDERS: PCP Internal Medicine; Visit Provider Thoracic Surgery (Cardiothoracic Vascular Surgery) | DX: E11.621 Type 2 diabetes mellitus with foot ulcer (principal); L97.512 Non-pressure chronic ulcer of other part of right foot with fat layer exposed; I96 Gangrene, not elsewhere classified; Z89.421 Acquired absence of other right toe(s) | CPT/HCPCS: 99213 ==

== ENCOUNTER → 2021-12-13 14:30 | Outpatient (BNVA) | payer MEDICARE, SELFPAY | PROVIDERS: PCP Internal Medicine; Visit Provider Nurse Practitioner Family | DX: I48.11 Longstanding persistent atrial fibrillation (principal); I11.0 Hypertensive heart disease with heart failure; I50.31 Acute diastolic (congestive) heart failure; I73.9 Peripheral vascular disease, unspecified; Z87.891 Personal history of nicotine dependence | CPT/HCPCS: 99214 ==

== ENCOUNTER 2021-12-18 14:34 | Outpatient (CLI) | payer MEDICARE, SELFPAY | END 2021-12-18 14:35 | disposition home or self-care (01) | LOC: WOUND 14:37 | PROVIDERS: PCP Internal Medicine; Visit Provider Thoracic Surgery (Cardiothoracic Vascular Surgery) | DX: I96 Gangrene, not elsewhere classified; L97.513 Non-pressure chronic ulcer of other part of right foot with necrosis of muscle; Z87.891 Personal history of nicotine dependence; E11.621 Type 2 diabetes mellitus with foot ulcer; Z89.421 Acquired absence of other right toe(s) | CPT/HCPCS: 99212 ==

== ENCOUNTER 2021-12-20 08:16 | Outpatient (CLI) | payer MEDICARE, SELFPAY ==
--- NOTE | 2021-12-20 08:38 | MR_ITS ---
WS: [id number] INDICATION: Infection toe amputation TECHNIQUE: MRI of the RIGHT foot without gadolinium enhancement. Sagittal PD, axial T1, axial PD, axi al STIR, axial T2, sagittal T1, sagittal STIR, coronal PD imaging. Patient refused gadolinium contras t. FINDINGS: Comparison CT September 19, 2021 and radiograph December 04, 2021 Postoperative changes amputation of the 4th toe. Amputation of the distal 2nd 3rd and 4th. Diffuse so ft tissue edema compatible with cellulitis involving the midfoot and forefoot soft tissues. Small amount of edema with replacement of the normal fatty bone marrow signal in the distal shaft of the 2nd metatarsal extending to the MTP joint. Osteomyelitis diffusely involving the 2nd proximal pha lanx with replacement of the normal fatty bone marrow signal. Soft tissue thickening with fluid colle ction at the 2nd MTP joint. This does not appear drainable. MR/MR foot RT wo con* [id number] IMPRESSION: 1. Osteomyelitis involving the distal residual 2nd metatarsal shaft/head exten ding to the MTP joint. Osteomyelitis involving the 2nd proximal phalanx with re placement of the normal fatty bone marrow signal. 2. Soft tissue thickening with small irregular fluid collection at the 2nd MTP . No well-defined drainable fluid collections. 3. Prior postoperative changes described above.
[2021-12-20 09:51] LABS: Basophils # 0.1 10^3/uL (0.0-0.1); Basophils % 0.6 %; Eosinophils # 0.5 10^3/uL (0.0-0.8); Eosinophils % 5.7 %; Hematocrit 45.6 % (42.0-52.0); Hemoglobin 14.1 g/dL (11.7-16.6); Lymphocytes # 1.4 10^3/uL (0.8-4.8); Lymphocytes % 17.2 %; Mean Corpuscular HGB Conc 30.9 g/dL (30.0-36.0); Mean Corpuscular Hemoglobin 26.4 pg (28.0-34.0); Mean Corpuscular Volume 85.2 fl (80-94); Mean Platelet Volume 9.9 fL (7.4-10.4); Monocytes # 0.7 10^3/uL (0.2-0.9); Monocytes % 9.1 %; Neutrophils # 5.34 10^3/uL (1.8-7.7); Neutrophils % 67.1 %; Nucleated Red Blood Cells % 0 %; Platelet Count 196 10^3/cmm (130-400); Red Blood Count 5.35 10^6/uL (4.1-5.3); Red Cell Distribution Width 19.2 % (12.1-15.1)
--- NOTE | 2021-12-20 10:14 | XR_ITS ---
WS: [id number] XR chest 2V* [id number] REASON FOR EXAM: ENCOUNTER FOR SCREENING FOR RESPIRATORY DISORDER FINDINGS: Sternal sutures and valve replacement. Moderate tortuosity thoracic aorta. Heart size within normal l imits. Calcified granulomatous disease in both hemithoraces. No active pulmonary parenchymal or pleural disease identified. Mild degenerative changes in the mid and lower thoracic spine. XR/XR chest 2V* [id number] IMPRESSION: No acute chest abnormality. No chronic lung disease identified.
[2021-12-20 10:19] LABS: Alanine Aminotransferase 30 U/L (0-41); Alkaline Phosphatase 101 IU/L (40-130); Aspartate Amino Transferase 32 U/L (0-40); Blood Urea Nitrogen 14 mg/dL (8-23); C Reactive Protein 4.5 mg/L (0.0-4.9); Calcium 9.2 mg/dL (8.5-10.5); Carbon Dioxide 26 mmol/L (22-29); Chloride 101 mmol/L (98-107); Globulin 2.9 g/dL (1.3-4.6); Glucose 92 mg/dL (65-115); Osmolality Calculated 286 mOsm/kg (285-295); Sodium 138 mmol/L (136-145); Total Bilirubin 0.9 mg/dL (0.15-1.2); Total Protein 6.9 g/dL (6.6-8.7)
[2021-12-20 10:44] LABS: Estmated Average Glucose 177; Hemoglobin A1C 7.8 % (4.0-6.0)
[2021-12-20 11:12] LABS: Erythrocyte Sedimentation Rate 38 mm/hr (0-10)
[2021-12-20 11:15] LABS: Prealbumin 19.2 mg/dL (20-40)
--- NOTE | 2021-12-20 13:52 | ECG_ITS ---
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 Measurements Intervals [place] Rate: 71 P: 34 SD: 243 QRS: 10 QRSD: 100 T: 147 QT: 400 QTc: 435 Interpretive Statements SINUS RHYTHM LEFT VENTRICULAR HYPERTROPHY AND ST-T CHANGE [VOLTAGE CRITERIA PLUS ST/T ABNORMALITY] Compared to ECG 05/06/2021 18:22:10 Left ventricular hypertrophy now present ST (T wave) deviation now present First degree AV block no longer present T-wave abnormality no longer present Possible ischemia no longer present Electronically Signed On 12-20-2021 18:52:59 CDT by Jaime Moore M.D. [id number]
== END 2021-12-20 08:17 | disposition home or self-care (01) ==
PROVIDERS: PCP Internal Medicine; Visit Provider Thoracic Surgery (Cardiothoracic Vascular Surgery)
DX: Z13.83 Encounter for screening for respiratory disorder NEC (principal); E11.621 Type 2 diabetes mellitus with foot ulcer; R94.31 Abnormal electrocardiogram [ECG] [EKG]; M86.9 Osteomyelitis, unspecified
CPT/HCPCS: 71046; 73718; 80053; 83036; 84134; 85025; 85651; 86140; 93005

== ENCOUNTER 2021-12-22 08:24 | Day surgery (SDC) | payer MEDICARE, SELFPAY ==
[2021-12-19 19:50] LABS: Adenovirus Not Detected (NOT DETECT); Chlamydia Pneumoniae Not Detected (NOT DETECT); Coronavirus 229E,HKU1,NL63,OC4 Not Detected (NOT DETECT); Human Metapneumovirus Not Detected (NOT DETECT); Human Rhinovirus/Enterovirus Not Detected (NOT DETECT); Influenza A Not Detected (NOT DETECT); Influenza A H1 Not Detected (NOT DETECT); Influenza A H1-2009 Not Detected (NOT DETECT); Influenza A H3 Not Detected (NOT DETECT); Influenza B Not Detected (NOT DETECT); Mycoplasma Pneumoniae Not Detected (NOT DETECT); Parainfluenza Virus Type 1 Not Detected (NOT DETECT); Parainfluenza Virus Type 2 Not Detected (NOT DETECT); Parainfluenza Virus Type 3 Not Detected (NOT DETECT); Parainfluenza Virus Type 4 Not Detected (NOT DETECT); Respiratory Syncytial Virus A Not Detected (NOT DETECT); Respiratory Syncytial Virus B Not Detected (NOT DETECT); SARS-COV-2 Not Detected (NOT DETECT)
[2021-12-21 11:35] VITALS: BMI 31.8
[2021-12-21 15:15] VITALS: BMI 31.5
[2021-12-22] VITALS (11 sets, daily range): BP systolic 129–144; BP diastolic 56–78; PULSE 61–76; RESP 12–66; TEMP 36.3–36.6; O2SAT 94–98
--- NOTE | 2021-12-22 09:00 | W.PM.OPSUD ---
Surgery/Procedure H&P Update DATE OF PROCEDURE: December 22, 2021 DATE H&P PERFORMED: 12/11/21 CHANGES TO PREVIOUS DOCUMENTATION: None PREOP DIAGNOSIS: Osteomyelitis right foot PLANNED PROCEDURE: Operation Date: 12/22/21 10:00 Proposed Procedures p Debridement of bone w/ insertion of abx beads right foot 90466/l97.514(Right) - Garrick Duggan DPM
--- NOTE | 2021-12-22 09:04 | P.ANESASSM_ITS ---
Pre-Anesthetic Assessment Height/Weight: Height 1.78 m Weight 99.79 kg Preop Diagnosis: Osteomyelitis right foot Operation Date: 12/22/21 10:00 Proposed Procedures p Debridement of bone w/ insertion of abx beads right foot 34976/l97.514(Right) - Garrick Duggan DPM Familial anesthetic complications: None Was Beta Nell taken within 24 hours: Yes Was Clonidine taken within 24 hours: N/A Last intake: Intake Last Liquid Date 12/21/21 Last Liquid Time 19:00 Last Solid Date 12/21/21 Last Solid Time 17:00 Social No alcohol and No tobacco Exam alert, oriented x 3, clear to auscultation bilaterally and regular rate & rhythm Airway Submandibular: within normal limits Mallampati: Class I Dentition: false History/ROS No significant complaints Pulmonary Chronic Obstructive Pulmonary Disease CV/HEM Atrial Fibrillation, Congestive Heart Failure, Hypertension, Myocardial Infarction, Murmur and Peripheral Vascular Disease METS > 4 EKG 12/20/2021 ? ? ? Interpretive Statements SINUS RHYTHM LEFT VENTRICULAR HYPERTROPHY AND ST-T CHANGE? [VOLTAGE CRITERIA PLUS ST/T ABNORMALITY] Compared to ECG 05/06/2021 18:22:10 Left ventricular hypertrophy now present ST (T wave) deviation now present First degree AV block no longer present T-wave abnormality no longer present Possible ischemia no longer present Electronically Signed On 12-20-2021 18:52:59 CDT by Jaime Moore M.D. [email or web address] [id number] Cath 07/2021 Conclusions ? Severe right tibioperoneal artery stenosis. Severe proximal peroneal artery stenosis. s/p revascularization with balloon angioplasty. CTA 06/2021 CT/CT angio abd aorta runof [id number] IMPRESSION: ? 1.? Normal caliber abdominal aorta. No aneurysm. 2.? RIGHT: Moderate stenosis superficial femoral artery in the mid thigh measuring approximately 60% which remains patent. Moderate segmental narrowing in the superficial femoral artery. Popliteal artery is patent with stenotic three-vessel runoff to the ankle with segmental stenosis. 3.? LEFT: Moderate segmental narrowing superficial femoral artery without flow- limiting stenosis. Mild segmental narrowing popliteal artery. Stenotic three- vessel runoff to the ankle with segmental stenosis. Short segment occlusion of the posterior tibial artery in the mid calf which reconstitutes distally. 4.? Nonvascular findings described above. ? TTE CONCLUSIONS ?1-Normal left ventricular cavity size. Normal left ventricular ?systolic function. No regional wall motion abnormalities. Left ?ventricular ejection fraction is estimated at 55 %. Grade II/IV ?diastolic dysfunction, moderately elevated filling pressures. ?2-Bioprosthetic aortic valve is sitting in a normal position ?functioning adequately.? There appeared to be 1.7 cm2 aortic ?valve area with mean gradient across the aortic valve is 10mmHg ?3-Severely thickened mitral valve. Severe mitral annular ?calcification. No mitral valve stenosis. ?4-There is no pericardial effusion. ?5-Pulmonary artery systolic pressure is within normal limits. ?6-Right atrial pressure is around 5 mm of mercury. ?7-There are no prior echocardiogram studies to compare. ?8-No significant change since the prior echocardiogram study of ?08/20/2018. None reported Hepatic None reported GI None reported Metabolic Diabetes Mellitus Neuropsych Cerebrovascular Accident (Right sided weakness) Anesthetic Plan ASA status: 3 Anesthesia: Anesthesia Evaluation, General and MAC Other: I discussed with the patient risks, goals, and benefits of MAC and general anesthesia. We discussed spectrum of MAC anesthesia including conversion to general as well as possibility of recall of intraoperative stimuli including discomfort/pain. Patient agrees to proceed with MAC. Risk of > 500 ml blood loss (7ml/kg in children): No Medications/Allergies Home Medications Medication Instructions Recorded Confirmed Last Taken Type duloxetine 60 mg capsule,delayed 60 mg PO DAILY 02/22/20 12/21/21 10/18/21 History release (Cymbalta) tamsulosin 0.4 mg capsule (Flomax) 0.8 mg PO BEDTIME 02/22/20 12/21/21 10/18/21 History carvedilol 25 mg tablet 25 mg PO BID #180 tab 01/23/21 12/21/21 10/18/21 Rx ascorbic acid (vitamin C) 1,000 mg 1,000 mg PO QAM 05/06/21 12/21/21 10/18/21 History tablet (Vitamin C) empagliflozin 25 mg tablet 25 mg PO QAM 05/06/21 12/21/21 10/18/21 History (Jardiance) multivitamin 1 tab PO DAILY 05/06/21 12/21/21 10/18/21 History losartan 100 mg tablet 100 mg PO QAM #90 tab 06/30/21 12/21/21 10/18/21 Rx potassium chloride 20 mEq 20 meq PO QAM #90 tab 06/30/21 12/21/21 10/18/21 Rx tablet,extended release cholecalciferol (vitamin D3) 25 25 mcg PO DAILY 08/01/21 12/21/21 10/18/21 History mcg (1,000 unit) capsule zinc 50 mg tablet 50 mg PO DAILY 08/01/21 12/21/21 10/18/21 History furosemide 40 mg tablet 40 mg PO BID 09/14/21 12/21/21 10/18/21 History insulin aspart U-100 100 unit/mL 25 unit SUBCUT QAM 09/14/21 12/21/21 10/18/21 History subcutaneous cartridge (Novolog PenFill U-100 Insulin aspart) insulin degludec 200 unit/mL (3 75 unit SUBCUT BEDTIME 09/14/21 12/21/21 10/18/21 History mL) subcutaneous pen (Tresiba FlexTouch U-200 insulin) hydrocodone 5 mg-acetaminophen 325 1 tab PO Q8H PRN #10 tab 09/26/21 12/21/21 10/18/21 Rx mg tablet rivaroxaban 20 mg tablet (Xarelto) 20 mg PO QPM #90 tab 12/01/21 12/21/21 12/20/21 Rx doxycycline hyclate 100 mg capsule 100 mg PO BID 14 Days #28 cap 12/11/21 12/21/21 Unknown Rx Allergies Allergy/AdvReac Type Severity Reaction Status Date / Time No Known Allergies Allergy Verified 12/22/21 09:02 [facility] Anesthesia Medical History Acute hypokalemia Anticoagulation adequate with anticoagulant therapy Xarelto Atrial fibrillation Paroxysmal Benign prostatic hyperplasia Chronic anticoagulation Xarelto Congestive heart failure Diabetes Dyslipidemia Gangrene History of nonmelanoma skin cancer HTN (hypertension) Hypertensive urgency MSSA (methicillin susceptible Staphylococcus aureus) infection NSTEMI (non-ST elevated myocardial infarction) Obesity Osteomyelitis of toe of left foot PVD (peripheral vascular disease) 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 on 07/21/2021 TIA (transient ischemic attack) Varicose vein of leg Surgical History S/P AVR (aortic valve replacement) Bioprosthetic, bovine S/P cataract extraction S/P cholecystectomy Family History Father Diabetes Hypertension Grandfather Diabetes PATERNAL Hypertension PATERNAL Social History Smoking and tobacco status: former smoker Alcohol intake: former Marital status: / service: No Current occupational status: retired Current occupation: retired from [employer] Anesthesia Cardiac Studies: Echocardiogram Ultrasound 07/05/20
[2021-12-22 09:31] LABS: Glucose Point of Care 61 mg/dL (70-110)
[2021-12-22 09:31] LABS: Glucose Point of Care 61 mg/dL (70-110)
[2021-12-22] MEDS: lidocaine 1% INJ 20 mL INJECTION (10:29)
[2021-12-22] MEDS: vancomycin 1,000 MG SDV 1000 MG XX (10:39)
--- NOTE | 2021-12-22 11:11 | SUR.PHASEI ---
patient brought into pacu awake but drowsy. boot to right foot. toes of right foot warm and pink. dressing dry and in place.
--- NOTE | 2021-12-22 11:19 | XR_ITS ---
WS: [id number] XR foot RT 2V [id number] REASON FOR EXAM: post op FINDINGS: There is been resection of bone from the second through the fourth metatarsals and the proximal phala nx of the second toe. There has been previous resection of the distal fourth toe. Antibiotic beads have been placed in the osteotomy beds. XR/XR foot RT 2V [id number] IMPRESSION: Postoperative right foot as above.
--- NOTE | 2021-12-22 11:21 | PM.OP ---
Operative Report Date of procedure: December 22, 2021 Pre-op diagnosis: Osteomyelitis right foot Post-op diagnosis: Osteomyelitis right second, third and fourth metatarsal as well as right second proximal phalanx, third proximal phalanx all right foot Post-op findings: Devitalized bone more severe at the second metatarsal tarsal head and base of the proximal phalanx of the second toe. Procedure done: Debridement of bone w/ insertion of abx beads right foot 63493 x3 Implants: 3-0 nylon, OsteoSet absorbable antibiotic beads with tobramycin and vancomycin Specimens removed/disposition: Bone from right second metatarsal head sent to microbiology for Gram stain and culture Pathology: None Surgeon: Garrick Duggan D.P.M. X Ray Service Engineer: Ladi Estimated blood loss: 5 See intraoperative documentation IV fluids: 0 Urine output: 0 Complications: None Brief History: 71 diabetic male with peripheral neuropathy and history of right fourth toe amputation secondary to osteomyelitis, significant history of peripheral arterial disease.? Last A1c 6.9 in May 2021.? Lower extremity revascularization to the right lower extremity attempted July 2021 [facility].? Previous evaluations have included LILLIAN/TBI/PVR as well as CT angiogram of abdominal aorta with runoff all in 2020 prior to vascular intervention.? He has had a nonhealing wound at the amputation site of the right fourth metatarsal head and right fourth toe.? X-ray shows a progression of osseous destruction/osteolysis of the second and third metatarsal heads as well as at the base of the proximal phalanx of the second and third toe.? This is consistent with chronic osteomyelitis.? Discussed utility of surgical debridement, insertion of resorbable antibiotic impregnated beads such as OsteoSet with heat liable antibiotic, tobramycin and augmented with vancomycin combined with local wound care and oral antibiotics, would also obtain bone culture intraoperatively.? Patient is agreeable would like to proceed with this after discussing risks versus benefits, he is at risk for higher level amputation should this fail, at this time is clinically stable without signs of sepsis.??Covid screening negative, informed consent signed by patient and myself. I initialed his right foot. Procedure: There are mild sedation the patient was brought to the operating room and remained on the gurney in supine position. A timeout was performed. Anesthesia was then administered by the anesthesia service. Local anesthesia was injected by myself consisting of 30 cc of one-to-one mixture 1% lidocaine and 0.5% Marcaine plain and a right second, third and fourth ray block fashion. Well-padded pneumatic tourniquet applied to the right ankle. The right lower extremity was then scrubbed, prepped and draped utilizing normal aseptic technique. Attention was directed to the right second ray where over the second metatarsal phalangeal joint dorsally and favoring medial to the extensor tendons a full-thickness incision was made down to bone. The base of the proximal phalanx of the second toe was noted to be devitalized had poor density and had yellow off-white discoloration, this was debrided down to healthier bone with attention then being directed to the second metatarsal head also devitalized with erosive changes at the metaphysis and head of the second metatarsal, cartilage was removed this was a free-floating shell of cartilage this was packed for operative field and devitalized bone sent from the second metatarsal head to microbiology for Gram stain and culture to help guide antibiotic therapies. Incision was flushed with copious amounts of sterile skin solution. OsteoSet antibiotic micro beads that are absorbable were then placed directly into the incision and adjacent to the second proximal phalanx and second metatarsal head these were impregnated with tobramycin and vancomycin, incision was flushed lightly and closed with 3-0 nylon. Attention was then directed to the third metatarsal phalangeal joint where a linear longitudinal incision was made dorsally favoring the lateral aspect of the joint avoiding the extensor tendon apparatus and incision performed full-thickness down to bone. The base of the third proximal phalanx was debrided of devitalized bone as well as the head of the third metatarsal also debrided of devitalized bone and flushed with saline solution followed by insertion of OsteoSet antibiotic impregnated beads with tobramycin and vancomycin. Light gentle flush and irrigation was performed followed by closure with 3-0 nylon. Attention was then directed to the lateral aspect of the right fourth metatarsal where laterally a full-thickness incision was made extending from the sinus tract that was draining and probing directly to bone down to bone proximally at the mid diaphysis of the right fourth metatarsal which was debrided of devitalized bone, flushed with saline solution and placement performed with antibiotic beads with tobramycin and vancomycin. Incision was gently flushed and irrigated with saline solution followed by closure with 3-0 nylon. Intraoperatively the area that was of most concern was the second metatarsal head and second proximal phalanx base. Will plan on 6 weeks of antibiotic therapy will await cultures to guide antibiotic choice. Patient continuing with wound care currently has home health set up through [facility] they were given orders for daily dressing change Betadine wet-to-dry. He is undergoing hyperbarics at wound care. I am guarded as to success rate of eradicating the extent of his osteomyelitis. Patient is at risk for transmetatarsal mutation and potentially even for a higher level amputation due to peripheral arterial disease.
[2021-12-22 11:25] LABS: Glucose Point of Care 79 mg/dL (70-110)
[2021-12-22 12:40] LABS: Glucose Point of Care 73 mg/dL (70-110)
--- NOTE | 2021-12-22 12:43 | SUR.PHASEII ---
12:35 blood sugar rechecked 73mg/dL . PATIENT GIVEN SANDWICH AND DRINK. A+O X 3.
== END 2021-12-22 13:45 | disposition home or self-care (01) ==
PROVIDERS: PCP Internal Medicine; Visit Provider Podiatrist Foot & Ankle Surgery
PROC: (CPT 28005; principal; 2021-12-22 09:50)
DX: M86.8X7 Other osteomyelitis, ankle and foot (principal); J44.9 Chronic obstructive pulmonary disease, unspecified; I48.91 Unspecified atrial fibrillation; I11.0 Hypertensive heart disease with heart failure; I50.9 Heart failure, unspecified; I25.2 Old myocardial infarction; E11.9 Type 2 diabetes mellitus without complications; I69.851 Hemiplegia and hemiparesis following other cerebrovascular disease affecting right dominant side; Z79.01 Long term (current) use of anticoagulants; E66.9 Obesity, unspecified; Z68.31 Body mass index [BMI] 31.0-31.9, adult; E78.5 Hyperlipidemia, unspecified; Z87.891 Personal history of nicotine dependence; Z89.421 Acquired absence of other right toe(s); Z79.4 Long term (current) use of insulin; N40.0 Benign prostatic hyperplasia without lower urinary tract symptoms
CPT/HCPCS: 28005 ×3; 36416; 73620; 82962; 87070; 87075; 87077; 87205; 87635; C1734; J0690; J2405; J2704; J3010; J3370; J3490

== ENCOUNTER 2021-12-25 15:48 | Outpatient (CLI) | payer MEDICARE, SELFPAY | END 2021-12-25 15:49 | disposition home or self-care (01) | LOC: WOUND 15:50 | PROVIDERS: PCP Internal Medicine; Visit Provider Thoracic Surgery (Cardiothoracic Vascular Surgery) | DX: E11.621 Type 2 diabetes mellitus with foot ulcer (principal); Z87.891 Personal history of nicotine dependence; L97.513 Non-pressure chronic ulcer of other part of right foot with necrosis of muscle; I96 Gangrene, not elsewhere classified | CPT/HCPCS: 99212 ==

== ENCOUNTER → 2021-12-28 12:55 | Outpatient (BNVA) | payer MEDICARE, SELFPAY | PROVIDERS: PCP Internal Medicine; Visit Provider Nurse Practitioner Family | DX: M86.671 Other chronic osteomyelitis, right ankle and foot (principal) | CPT/HCPCS: G0277 ==

== ENCOUNTER → 2021-12-29 13:06 | Outpatient (BNVA) | payer MEDICARE, SELFPAY | PROVIDERS: PCP Internal Medicine; Visit Provider Surgery | DX: M86.671 Other chronic osteomyelitis, right ankle and foot (principal) | CPT/HCPCS: G0277 ==

== ENCOUNTER → 2022-01-01 13:07 | Outpatient (BNVA) | payer MEDICARE, SELFPAY | PROVIDERS: PCP Internal Medicine | DX: M86.671 Other chronic osteomyelitis, right ankle and foot (principal) | CPT/HCPCS: G0277 ==

== ENCOUNTER → 2022-01-02 13:16 | Outpatient (BNVA) | payer MEDICARE, SELFPAY | PROVIDERS: PCP Internal Medicine | DX: M86.671 Other chronic osteomyelitis, right ankle and foot (principal) | CPT/HCPCS: G0277 ==

== ENCOUNTER → 2022-01-03 12:56 | Outpatient (BNVA) | payer MEDICARE, SELFPAY | PROVIDERS: PCP Internal Medicine | DX: M86.671 Other chronic osteomyelitis, right ankle and foot (principal) | CPT/HCPCS: G0277 ==

== ENCOUNTER → 2022-01-04 13:22 | Outpatient (BNVA) | payer MEDICARE, SELFPAY | PROVIDERS: PCP Internal Medicine | DX: M86.671 Other chronic osteomyelitis, right ankle and foot (principal) | CPT/HCPCS: G0277 ==

== ENCOUNTER → 2022-01-05 13:00 | Outpatient (BNVA) | payer MEDICARE, SELFPAY | PROVIDERS: PCP Internal Medicine | DX: M86.671 Other chronic osteomyelitis, right ankle and foot (principal) | CPT/HCPCS: G0277 ==

== ENCOUNTER → 2022-01-08 09:44 | Outpatient (BNVA) | payer MEDICARE, SELFPAY | PROVIDERS: PCP Internal Medicine; Visit Provider Podiatrist Foot & Ankle Surgery | DX: A49.01 Methicillin susceptible Staphylococcus aureus infection, unspecified site (principal); M86.471 Chronic osteomyelitis with draining sinus, right ankle and foot; E11.42 Type 2 diabetes mellitus with diabetic polyneuropathy; I73.9 Peripheral vascular disease, unspecified; L97.514 Non-pressure chronic ulcer of other part of right foot with necrosis of bone; Z87.891 Personal history of nicotine dependence | CPT/HCPCS: 11044; G0277 ==

== ENCOUNTER → 2022-01-09 13:19 | Outpatient (BNVA) | payer MEDICARE, SELFPAY | PROVIDERS: PCP Internal Medicine | DX: M86.671 Other chronic osteomyelitis, right ankle and foot (principal) | CPT/HCPCS: G0277 ==

== ENCOUNTER → 2022-01-11 13:04 | Outpatient (BNVA) | payer MEDICARE, SELFPAY | PROVIDERS: PCP Internal Medicine | DX: M86.671 Other chronic osteomyelitis, right ankle and foot (principal) | CPT/HCPCS: G0277 ==

== ENCOUNTER → 2022-01-12 12:05 | Outpatient (BNVA) | payer MEDICARE, SELFPAY | PROVIDERS: PCP Internal Medicine | DX: M86.671 Other chronic osteomyelitis, right ankle and foot (principal) | CPT/HCPCS: G0277 ==

== ENCOUNTER → 2022-01-15 12:56 | Outpatient (BNVA) | payer MEDICARE, SELFPAY | PROVIDERS: PCP Internal Medicine | DX: M86.671 Other chronic osteomyelitis, right ankle and foot (principal) | CPT/HCPCS: G0277 ==

== ENCOUNTER → 2022-01-16 09:17 | Outpatient (BNVA) | payer MEDICARE, SELFPAY | PROVIDERS: PCP Internal Medicine; Visit Provider Podiatrist Foot & Ankle Surgery | DX: A49.01 Methicillin susceptible Staphylococcus aureus infection, unspecified site (principal); M86.471 Chronic osteomyelitis with draining sinus, right ankle and foot; I73.9 Peripheral vascular disease, unspecified; E11.42 Type 2 diabetes mellitus with diabetic polyneuropathy; L97.514 Non-pressure chronic ulcer of other part of right foot with necrosis of bone; Z87.891 Personal history of nicotine dependence | CPT/HCPCS: 11043; 73630 ==

== ENCOUNTER → 2022-01-17 12:38 | Outpatient (BNVA) | payer MEDICARE, SELFPAY | PROVIDERS: PCP Internal Medicine | DX: M86.671 Other chronic osteomyelitis, right ankle and foot (principal) | CPT/HCPCS: G0277 ==

== ENCOUNTER → 2022-01-19 13:07 | Outpatient (BNVA) | payer MEDICARE, SELFPAY | PROVIDERS: PCP Internal Medicine | DX: M86.671 Other chronic osteomyelitis, right ankle and foot (principal) | CPT/HCPCS: G0277 ==

== ENCOUNTER → 2022-01-23 08:57 | Outpatient (BNVA) | payer MEDICARE, SELFPAY | PROVIDERS: PCP Internal Medicine; Visit Provider Podiatrist Foot & Ankle Surgery | DX: A49.01 Methicillin susceptible Staphylococcus aureus infection, unspecified site (principal); M86.471 Chronic osteomyelitis with draining sinus, right ankle and foot; I73.9 Peripheral vascular disease, unspecified; E11.42 Type 2 diabetes mellitus with diabetic polyneuropathy; L97.514 Non-pressure chronic ulcer of other part of right foot with necrosis of bone; Z87.891 Personal history of nicotine dependence | CPT/HCPCS: 11044 ==

== ENCOUNTER → 2022-01-24 13:30 | Outpatient (BNVA) | payer MEDICARE, SELFPAY | PROVIDERS: PCP Internal Medicine | DX: M86.671 Other chronic osteomyelitis, right ankle and foot (principal) | CPT/HCPCS: G0277 ==

== ENCOUNTER → 2022-01-25 13:17 | Outpatient (BNVA) | payer MEDICARE, SELFPAY | PROVIDERS: PCP Internal Medicine; Visit Provider Nurse Practitioner Family | DX: M86.671 Other chronic osteomyelitis, right ankle and foot (principal) | CPT/HCPCS: G0277 ==

== ENCOUNTER → 2022-01-26 09:05 | Outpatient (BNVA) | payer MEDICARE, SELFPAY | PROVIDERS: PCP Internal Medicine | DX: M86.671 Other chronic osteomyelitis, right ankle and foot (principal) | CPT/HCPCS: G0277 ==

== ENCOUNTER → 2022-01-29 13:06 | Outpatient (BNVA) | payer MEDICARE, SELFPAY | PROVIDERS: PCP Internal Medicine | DX: M86.671 Other chronic osteomyelitis, right ankle and foot (principal) | CPT/HCPCS: G0277 ==

== ENCOUNTER → 2022-01-30 08:02 | Outpatient (BNVA) | payer MEDICARE, SELFPAY | PROVIDERS: PCP Internal Medicine; Visit Provider Podiatrist Foot & Ankle Surgery | DX: A49.01 Methicillin susceptible Staphylococcus aureus infection, unspecified site (principal); M86.471 Chronic osteomyelitis with draining sinus, right ankle and foot; I73.9 Peripheral vascular disease, unspecified; E11.42 Type 2 diabetes mellitus with diabetic polyneuropathy; L97.514 Non-pressure chronic ulcer of other part of right foot with necrosis of bone; Z87.891 Personal history of nicotine dependence; M86.671 Other chronic osteomyelitis, right ankle and foot | CPT/HCPCS: 99183; 99214; G0277 ==

== ENCOUNTER → 2022-02-01 09:48 | Outpatient (BNVA) | payer MEDICARE, SELFPAY | PROVIDERS: PCP Internal Medicine | DX: M86.671 Other chronic osteomyelitis, right ankle and foot (principal) | CPT/HCPCS: G0277 ==

== ENCOUNTER → 2022-02-02 09:02 | Outpatient (BNVA) | payer MEDICARE, SELFPAY | PROVIDERS: PCP Internal Medicine | DX: M86.671 Other chronic osteomyelitis, right ankle and foot (principal) | CPT/HCPCS: G0277 ==

== ENCOUNTER → 2022-02-05 08:59 | Day surgery (SDC) | payer MEDICARE, SELFPAY | PROVIDERS: PCP Internal Medicine; Visit Provider Podiatrist Foot & Ankle Surgery | DX: L97.514 Non-pressure chronic ulcer of other part of right foot with necrosis of bone (principal) | CPT/HCPCS: 36415; 80053; 85025; 87070; 87075; 87077; 87186; 87205 ==

== ENCOUNTER 2022-02-05 16:07 | Outpatient (CLI) | payer MEDICARE, SELFPAY | END 2022-02-05 16:08 | disposition home or self-care (01) | PROVIDERS: PCP Internal Medicine; Visit Provider Podiatrist Foot & Ankle Surgery | DX: R19.7 Diarrhea, unspecified (principal) | CPT/HCPCS: 36415; 87493 ==

== ENCOUNTER 2022-02-09 07:56 | Day surgery (SDC) | payer MEDICARE, SELFPAY ==
[2022-02-08 11:41] VITALS: BMI 31.5
[2022-02-09 08:14] VITALS: BP 135/69; PULSE 61; RESP 16; TEMP 36.2; O2SAT 100
[2022-02-09 08:40] LABS: Glucose Point of Care 66 mg/dL (70-110)
[2022-02-09] MEDS: sodium chloride 0.9% 1,000 ML 30 ML IV (08:43)
--- NOTE | 2022-02-09 09:08 | ANES.PREANE2 ---
Pre-Anesthetic Assessment Height/Weight: Height 1.78 m Weight 99.79 kg Temp Pulse Resp BP Pulse Ox 97.1 F L 61 16 135/69 100 02/09/22 08:14 02/09/22 08:14 02/09/22 08:14 02/09/22 08:14 02/09/22 08:14 Preop Diagnosis: Osteomyelitis right foot Operation Date: 02/09/22 09:35 Proposed Procedures p Incision and Debridement right foot 98822 M85.9(Right) - Garrick Duggan DPM Familial anesthetic complications: None Was Beta Nell taken within 24 hours: Yes Was Clonidine taken within 24 hours: N/A Last intake: Intake Last Liquid Date 02/08/22 Last Liquid Time 23:30 Last Solid Date 02/08/22 Last Solid Time 20:00 Social No alcohol and No tobacco Exam alert, oriented x 3, clear to auscultation bilaterally and regular rate & rhythm Airway Submandibular: within normal limits Cervical ROM: within normal limits Mallampati: Class II Dentition: false CV/HEM Atrial Fibrillation, Coronary Artery Disease, Congestive Heart Failure (nl EF), Hypertension and Peripheral Vascular Disease Metabolic Diabetes Mellitus, Hyperlipidemia and Morbid Obesity Neuropsych Neuropathy Anesthetic Plan ASA status: 3 Anesthesia: MAC Medications/Allergies Home Medications Medication Instructions Recorded Confirmed Last Taken Type duloxetine 60 mg capsule,delayed 60 mg PO DAILY 02/22/20 02/08/22 1 Day Ago History release (Cymbalta) ~12/21/21 tamsulosin 0.4 mg capsule (Flomax) 0.8 mg PO BEDTIME 02/22/20 02/09/22 02/08/22 20:00 History carvedilol 25 mg tablet 25 mg PO BID #180 tab 01/23/21 02/09/22 02/09/22 06:00 Rx empagliflozin 25 mg tablet 25 mg PO QAM 05/06/21 02/09/22 02/08/22 08:00 History (Jardiance) multivitamin 1 tab PO DAILY 05/06/21 02/08/22 1 Day Ago History ~12/21/21 losartan 100 mg tablet 100 mg PO QAM #90 tab 06/30/21 02/09/22 02/08/22 08:00 Rx potassium chloride 20 mEq 20 meq PO QAM #90 tab 06/30/21 02/09/22 02/08/22 08:00 Rx tablet,extended release cholecalciferol (vitamin D3) 25 25 mcg PO DAILY 08/01/21 02/08/22 1 Day Ago History mcg (1,000 unit) capsule ~12/21/21 zinc 50 mg tablet 50 mg PO DAILY 08/01/21 02/08/22 1 Day Ago History ~12/21/21 furosemide 40 mg tablet 40 mg PO BID 09/14/21 02/09/22 02/08/22 18:00 History insulin aspart U-100 100 unit/mL 10 unit SUBCUT AC 09/14/21 02/09/22 02/08/22 21:00 History subcutaneous cartridge (Novolog PenFill U-100 Insulin aspart) insulin degludec 200 unit/mL (3 50 unit SUBCUT BEDTIME 09/14/21 02/09/22 02/08/22 20:00 History mL) subcutaneous pen (Tresiba FlexTouch U-200 insulin) hydrocodone 5 mg-acetaminophen 325 1 tab PO Q8H PRN #10 tab 09/26/21 02/08/22 3 Days Ago Rx mg tablet ~12/19/21 rivaroxaban 20 mg tablet (Xarelto) 20 mg PO QPM #90 tab 12/01/21 02/09/22 02/07/22 20:00 Rx doxycycline hyclate 100 mg capsule 100 mg PO BID 14 Days #28 cap 01/23/22 02/08/22 Unknown Rx cadexomer iodine 0.9 % topical gel 40 g TOPICAL DAILY 02/08/22 02/08/22 Unknown History Allergies Allergy/AdvReac Type Severity Reaction Status Date / Time No Known Allergies Allergy Verified 02/08/22 11:25 Current Medications Generic Name Dose Route Start Last Admin Trade Name Freq PRN Reason Stop Dose Admin Sodium Chloride 1,000 mls @ 30 mls/hr 02/09/22 08:15 02/09/22 08:43 Sodium Chloride 0.9% IV 02/10/22 08:14 30 mls/hr .Q24H JYOTI Administration PFSH Anesthesia Medical History Acute hypokalemia Anticoagulation adequate with anticoagulant therapy Xarelto Atrial fibrillation Paroxysmal Benign prostatic hyperplasia Chronic anticoagulation Xarelto Congestive heart failure Diabetes Dyslipidemia Gangrene History of nonmelanoma skin cancer HTN (hypertension) Hypertensive urgency MSSA (methicillin susceptible Staphylococcus aureus) infection NSTEMI (non-ST elevated myocardial infarction) Obesity Osteomyelitis of toe of left foot PVD (peripheral vascular disease) 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 on 07/21/2021 TIA (transient ischemic attack) Varicose vein of leg Surgical History S/P AVR (aortic valve replacement) Bioprosthetic, bovine S/P cataract extraction S/P cholecystectomy Family History Father Diabetes Hypertension Grandfather Diabetes PATERNAL Hypertension PATERNAL Social History Smoking and tobacco status: former smoker Alcohol intake: former Marital status: / service: No Current occupational status: retired Current occupation: retired from [employer] Anesthesia : 02/09/22 08:37 Cardiac Studies: Echocardiogram Ultrasound 07/05/20
[2022-02-09 09:09] LABS: Anion Gap 12.6 (5-19); Blood Urea Nitrogen 15 mg/dL (8-23); Calcium 9.4 mg/dL (8.5-10.5); Carbon Dioxide 26 mmol/L (22-29); Chloride 105 mmol/L (98-107); Glucose 63 mg/dL (65-115); Osmolality Calculated 289 mOsm/kg (285-295); Potassium 3.6 mmol/L (3.5-5.1); Sodium 140 mmol/L (136-145)
--- NOTE | 2022-02-09 09:34 | W.PM.OPSUD ---
Surgery/Procedure H&P Update DATE OF PROCEDURE: February 09, 2022 DATE H&P PERFORMED: 02/05/22 CHANGES TO PREVIOUS DOCUMENTATION: None PREOP DIAGNOSIS: Osteomyelitis right foot PLANNED PROCEDURE: Operation Date: 02/09/22 09:35 Proposed Procedures p Incision and Debridement right foot 41227 M85.9(Right) - Garrick Duggan DPM
[2022-02-09 09:38] LABS: Glucose Point of Care 101 mg/dL (70-110)
[2022-02-09] MEDS: lidocaine 2% INJ 20 mL INJECTION (10:07)
[2022-02-09] MEDS: vancomycin 1,000 MG SDV 1000 MG XX (10:07)
--- NOTE | 2022-02-09 10:11 | P.OP_ITS ---
Operative Report Date of procedure: February 09, 2022 Pre-op diagnosis: Osteomyelitis right foot Post-op diagnosis: Same Post-op findings: Improved wound appearance postdebridement Procedure done: Incision of bone cortex right foot CPT code 77847 Implants: None Specimens removed/disposition: None Pathology: None Surgeon: Garrick Duggan D.P.M. Smoking Pipe Repairer: Crystal Estimated blood loss: 5 No tourniquet IV fluids: None Urine output: None Complications: None Findings: Improved wound appearance post debridement. Brief History: High risk wound with osteomyelitis x3 at the right foot, has been undergoing local wound care has history of previous debridement and insertion of antibiotic cement spacer, currently on oral antibiotics and undergoing hyperbaric oxygen therapy. Progression of wound malodor, exudate and devitalized tissue down to bone appreciated clinically necessitating surgical debridement down to bone specifically at the right second metatarsal and remaining proximal phalanx base of the right second toe. Patient is agreeable wishes to proceed can be done outpatient under MAC anesthesia. Risks include but are not limited to pain, bleeding, numbness, infection, he is certainly at risk for higher level of amputation including below-knee amputation. Procedure: Under mild the patient was brought to the operating room and remained on the gurney in supine position. A timeout was performed. Anesthesia was then administered by the anesthesia service. Local anesthesia injected by myself consisting of one-to-one mixture one-point lidocaine and 0.5% Marcaine plain and a right second, third and fourth ray block fashion. Total of 30 cc utilized. Well-padded pneumatic tourniquet applied to the right ankle however this was never utilized were inflated during the duration of procedure. Right lower extremity was scrubbed, prepped and draped utilizing normal aseptic technique. Attention was directed to the right dorsal foot where the second ray wound measured 1.5 cm x 0.5 cm x 0.5 cm with devitalized soft tissue and bone that was sharply debrided utilizing pickups and a 15 blade as well as rongeur this was debrided of all devitalized epidermis, dermis, subcutaneous tissue and bone involving the second metatarsal and remainder of the proximal phalanx base of the right second toe. Post wound debridement measurements at the right second ray measured 1.8 cm x 0.8 cm x 0.5 cm with improved appearance. This was irrigated with copious amounts of sterile saline solution. Attention was then directed to the dorsal aspect of the right foot at the third and fourth ray where further debridement of soft tissue only and not bone was performed this was excisional in nature down to and including tendon and myofascial layer. Post debridement wound appearance was improved. Low pressure lavage was performed to all incisions total of 3 L followed by dressing application of saline wet-to-dry. Patient tolerated the procedure well and was transferred to the PACU with vital signs stable and vascular status intact. Following a period of postop monitoring he will be discharged home. Was given a cam boot and advised to decrease his activities and elevate his right foot while resting. Will continue with once daily dressing changes with Iodosorb beginning tomorrow. Will resume hyperbarics Saturday. Will continue to follow-up in podiatry clinic weekly on Fridays.
[2022-02-09 10:13] VITALS: BP 134/54; PULSE 56; RESP 20; TEMP 36.6; O2SAT 96
[2022-02-09 10:18] VITALS: BP 139/48; PULSE 54; RESP 18; O2SAT 94
[2022-02-09 10:23] VITALS: BP 141/52; PULSE 58; RESP 18; TEMP 36.6; O2SAT 96
[2022-02-09 10:32] VITALS: BP 150/66; PULSE 60; RESP 16; TEMP 36.2; O2SAT 98
[2022-02-09 10:49] VITALS: BP 155/61; PULSE 63; RESP 16; TEMP 36.7; O2SAT 99
--- NOTE | 2022-02-09 11:34 | ANE.PACU2 ---
Inpatient post-anesthesia follow up: Airway intact: Yes Vital signs: Temperature 98.0 F Pulse Rate 63 Respiratory Rate 16 Blood Pressure 155/61 Pulse Oximetry 99 Oxygen Delivery Me thod Room Air Oxygen Flow Rate Fraction of Inspir ed Oxygen Hydration adequate: Yes Nausea and vomiting: No Pain level: 2 Mental status: Baseline
== END 2022-02-09 11:15 | disposition home or self-care (01) ==
PROVIDERS: Anesthesiology; PCP Internal Medicine; Visit Provider Podiatrist Foot & Ankle Surgery
PROC: (CPT 28005; principal; 2022-02-09 09:25)
DX: M86.8X7 Other osteomyelitis, ankle and foot (principal); I48.91 Unspecified atrial fibrillation; I25.10 Atherosclerotic heart disease of native coronary artery without angina pectoris; I11.0 Hypertensive heart disease with heart failure; I50.9 Heart failure, unspecified; E78.5 Hyperlipidemia, unspecified; E66.01 Morbid (severe) obesity due to excess calories; Z68.31 Body mass index [BMI] 31.0-31.9, adult; E11.40 Type 2 diabetes mellitus with diabetic neuropathy, unspecified; Z79.01 Long term (current) use of anticoagulants; Z87.891 Personal history of nicotine dependence
CPT/HCPCS: 28005; 36416; 80048; 82962; J0690; J2704; J3010; J3370; J3490; J7030

== ENCOUNTER → 2022-02-12 08:59 | Outpatient (BNVA) | payer MEDICARE, SELFPAY | PROVIDERS: PCP Internal Medicine | DX: M86.671 Other chronic osteomyelitis, right ankle and foot (principal) | CPT/HCPCS: G0277 ==

== ENCOUNTER → 2022-02-15 13:12 | Outpatient (BNVA) | payer MEDICARE, SELFPAY | PROVIDERS: PCP Internal Medicine | DX: M86.671 Other chronic osteomyelitis, right ankle and foot (principal) | CPT/HCPCS: G0277 ==

== ENCOUNTER → 2022-02-16 13:54 | Outpatient (BNVA) | payer MEDICARE, SELFPAY | PROVIDERS: PCP Internal Medicine; Visit Provider Podiatrist Foot & Ankle Surgery | DX: Z98.890 Other specified postprocedural states (principal); A49.01 Methicillin susceptible Staphylococcus aureus infection, unspecified site; E11.42 Type 2 diabetes mellitus with diabetic polyneuropathy; I73.9 Peripheral vascular disease, unspecified; L97.514 Non-pressure chronic ulcer of other part of right foot with necrosis of bone; M86.471 Chronic osteomyelitis with draining sinus, right ankle and foot | CPT/HCPCS: 11043 ==

== ENCOUNTER → 2022-02-19 08:52 | Outpatient (BNVA) | payer MEDICARE, SELFPAY | PROVIDERS: PCP Internal Medicine | DX: M86.671 Other chronic osteomyelitis, right ankle and foot (principal) | CPT/HCPCS: G0277 ==

== ENCOUNTER → 2022-02-20 09:05 | Outpatient (BNVA) | payer MEDICARE, SELFPAY | PROVIDERS: PCP Internal Medicine | DX: M86.671 Other chronic osteomyelitis, right ankle and foot (principal) | CPT/HCPCS: G0277 ==

== ENCOUNTER → 2022-02-21 08:45 | Outpatient (BNVA) | payer MEDICARE, SELFPAY | PROVIDERS: PCP Internal Medicine | DX: M86.671 Other chronic osteomyelitis, right ankle and foot (principal) | CPT/HCPCS: G0277 ==

== ENCOUNTER → 2022-02-22 13:23 | Outpatient (BNVA) | payer MEDICARE, SELFPAY | PROVIDERS: PCP Internal Medicine | DX: M86.671 Other chronic osteomyelitis, right ankle and foot (principal) | CPT/HCPCS: G0277 ==

== ENCOUNTER → 2022-02-23 11:54 | Outpatient (BNVA) | payer MEDICARE, SELFPAY | PROVIDERS: PCP Internal Medicine; Visit Provider Podiatrist Foot & Ankle Surgery | DX: Z98.890 Other specified postprocedural states (principal); E11.621 Type 2 diabetes mellitus with foot ulcer; L97.514 Non-pressure chronic ulcer of other part of right foot with necrosis of bone; A49.01 Methicillin susceptible Staphylococcus aureus infection, unspecified site; M86.471 Chronic osteomyelitis with draining sinus, right ankle and foot; I73.9 Peripheral vascular disease, unspecified | CPT/HCPCS: 11043 ==

== ENCOUNTER → 2022-02-26 08:53 | Outpatient (BNVA) | payer MEDICARE, SELFPAY | PROVIDERS: PCP Internal Medicine | DX: M86.671 Other chronic osteomyelitis, right ankle and foot (principal) | CPT/HCPCS: G0277 ==

== ENCOUNTER → 2022-02-27 08:56 | Outpatient (BNVA) | payer MEDICARE, SELFPAY | PROVIDERS: PCP Internal Medicine | DX: M86.671 Other chronic osteomyelitis, right ankle and foot (principal) | CPT/HCPCS: G0277 ==

== ENCOUNTER → 2022-02-28 09:13 | Outpatient (BNVA) | payer MEDICARE, SELFPAY | PROVIDERS: PCP Internal Medicine | DX: M86.671 Other chronic osteomyelitis, right ankle and foot (principal) | CPT/HCPCS: G0277 ==

== ENCOUNTER → 2022-03-02 08:49 | Outpatient (BNVA) | payer MEDICARE, SELFPAY | PROVIDERS: PCP Internal Medicine | DX: Z98.890 Other specified postprocedural states (principal); L97.514 Non-pressure chronic ulcer of other part of right foot with necrosis of bone; I73.9 Peripheral vascular disease, unspecified; A49.01 Methicillin susceptible Staphylococcus aureus infection, unspecified site; M86.471 Chronic osteomyelitis with draining sinus, right ankle and foot; E11.42 Type 2 diabetes mellitus with diabetic polyneuropathy; M86.671 Other chronic osteomyelitis, right ankle and foot | CPT/HCPCS: 11043; G0277 ==

== ENCOUNTER → 2022-03-06 09:14 | Outpatient (BNVA) | payer MEDICARE, SELFPAY | PROVIDERS: PCP Internal Medicine; Visit Provider Nurse Practitioner Family | DX: M86.671 Other chronic osteomyelitis, right ankle and foot (principal) | CPT/HCPCS: G0277 ==

== ENCOUNTER → 2022-03-07 09:05 | Outpatient (BNVA) | payer MEDICARE, SELFPAY | PROVIDERS: PCP Internal Medicine | DX: Z98.890 Other specified postprocedural states (principal); A49.01 Methicillin susceptible Staphylococcus aureus infection, unspecified site; M86.471 Chronic osteomyelitis with draining sinus, right ankle and foot; I73.9 Peripheral vascular disease, unspecified; E11.42 Type 2 diabetes mellitus with diabetic polyneuropathy; L97.514 Non-pressure chronic ulcer of other part of right foot with necrosis of bone; M86.671 Other chronic osteomyelitis, right ankle and foot | CPT/HCPCS: 99213; 99214; G0277 ==

== ENCOUNTER → 2022-03-08 08:45 | Outpatient (BNVA) | payer MEDICARE, SELFPAY | PROVIDERS: PCP Internal Medicine | DX: M86.671 Other chronic osteomyelitis, right ankle and foot (principal) | CPT/HCPCS: G0277 ==

== ENCOUNTER → 2022-03-09 09:16 | Outpatient (BNVA) | payer MEDICARE, SELFPAY | PROVIDERS: PCP Internal Medicine | DX: M86.671 Other chronic osteomyelitis, right ankle and foot (principal) | CPT/HCPCS: G0277 ==

== ENCOUNTER → 2022-03-12 09:00 | Outpatient (BNVA) | payer MEDICARE, SELFPAY | PROVIDERS: PCP Internal Medicine | DX: M86.671 Other chronic osteomyelitis, right ankle and foot (principal) | CPT/HCPCS: G0277 ==

== ENCOUNTER → 2022-03-13 08:57 | Outpatient (BNVA) | payer MEDICARE, SELFPAY | PROVIDERS: PCP Internal Medicine | DX: M86.671 Other chronic osteomyelitis, right ankle and foot (principal) | CPT/HCPCS: G0277 ==

== ENCOUNTER → 2022-03-14 08:52 | Outpatient (BNVA) | payer MEDICARE, SELFPAY | PROVIDERS: PCP Internal Medicine | DX: M86.671 Other chronic osteomyelitis, right ankle and foot (principal) | CPT/HCPCS: G0277 ==

== ENCOUNTER → 2022-03-15 08:54 | Outpatient (BNVA) | payer MEDICARE, SELFPAY | PROVIDERS: PCP Internal Medicine | DX: M86.671 Other chronic osteomyelitis, right ankle and foot (principal) | CPT/HCPCS: G0277 ==

== ENCOUNTER → 2022-04-04 14:51 | Outpatient (BNVA) | payer MEDICARE, SELFPAY | PROVIDERS: PCP Internal Medicine; Visit Provider Podiatrist Foot & Ankle Surgery | DX: E11.621 Type 2 diabetes mellitus with foot ulcer (principal); L97.514 Non-pressure chronic ulcer of other part of right foot with necrosis of bone; A49.01 Methicillin susceptible Staphylococcus aureus infection, unspecified site; M86.471 Chronic osteomyelitis with draining sinus, right ankle and foot; I73.9 Peripheral vascular disease, unspecified; E11.42 Type 2 diabetes mellitus with diabetic polyneuropathy; Z98.890 Other specified postprocedural states | CPT/HCPCS: 11043 ==

== ENCOUNTER → 2022-04-17 15:04 | Outpatient (BNVA) | payer MEDICARE, SELFPAY | PROVIDERS: PCP Internal Medicine; Visit Provider Podiatrist Foot & Ankle Surgery | DX: E11.621 Type 2 diabetes mellitus with foot ulcer (principal); L97.514 Non-pressure chronic ulcer of other part of right foot with necrosis of bone; A49.01 Methicillin susceptible Staphylococcus aureus infection, unspecified site; M86.471 Chronic osteomyelitis with draining sinus, right ankle and foot; I73.9 Peripheral vascular disease, unspecified; E11.42 Type 2 diabetes mellitus with diabetic polyneuropathy; Z98.890 Other specified postprocedural states; Z79.4 Long term (current) use of insulin | CPT/HCPCS: 11043 ==

== ENCOUNTER → 2022-05-17 14:42 | Outpatient (BNVA) | payer MEDICARE, SELFPAY | PROVIDERS: PCP Internal Medicine; Visit Provider Podiatrist Foot & Ankle Surgery | DX: E11.621 Type 2 diabetes mellitus with foot ulcer (principal); A49.01 Methicillin susceptible Staphylococcus aureus infection, unspecified site; M86.471 Chronic osteomyelitis with draining sinus, right ankle and foot; I73.9 Peripheral vascular disease, unspecified; E11.42 Type 2 diabetes mellitus with diabetic polyneuropathy; Z98.890 Other specified postprocedural states; L97.514 Non-pressure chronic ulcer of other part of right foot with necrosis of bone | CPT/HCPCS: 11043 ==

== ENCOUNTER → 2022-05-30 12:07 | Outpatient (BNVA) | payer MEDICARE, SELFPAY | PROVIDERS: PCP Internal Medicine; Visit Provider Internal Medicine Cardiovascular Disease | DX: I73.9 Peripheral vascular disease, unspecified (principal); I11.0 Hypertensive heart disease with heart failure; I50.31 Acute diastolic (congestive) heart failure; I48.11 Longstanding persistent atrial fibrillation; Z79.01 Long term (current) use of anticoagulants; E66.9 Obesity, unspecified; Z68.33 Body mass index [BMI] 33.0-33.9, adult; E78.5 Hyperlipidemia, unspecified; Z95.2 Presence of prosthetic heart valve; Z87.891 Personal history of nicotine dependence | CPT/HCPCS: 99214 ==

== ENCOUNTER → 2022-05-31 13:01 | Outpatient (BNVA) | payer MEDICARE, SELFPAY | PROVIDERS: PCP Internal Medicine; Visit Provider Podiatrist Foot & Ankle Surgery | DX: E11.621 Type 2 diabetes mellitus with foot ulcer (principal); L97.514 Non-pressure chronic ulcer of other part of right foot with necrosis of bone; A49.01 Methicillin susceptible Staphylococcus aureus infection, unspecified site; M86.471 Chronic osteomyelitis with draining sinus, right ankle and foot; I73.9 Peripheral vascular disease, unspecified; E11.42 Type 2 diabetes mellitus with diabetic polyneuropathy; Z98.890 Other specified postprocedural states; Z79.4 Long term (current) use of insulin | CPT/HCPCS: 11043 ==

== ENCOUNTER → 2022-06-21 14:58 | Outpatient (BNVA) | payer MEDICARE, SELFPAY | PROVIDERS: PCP Internal Medicine; Visit Provider Podiatrist Foot & Ankle Surgery | DX: E11.621 Type 2 diabetes mellitus with foot ulcer (principal); L97.514 Non-pressure chronic ulcer of other part of right foot with necrosis of bone; A49.01 Methicillin susceptible Staphylococcus aureus infection, unspecified site; M86.471 Chronic osteomyelitis with draining sinus, right ankle and foot; I73.9 Peripheral vascular disease, unspecified; E11.42 Type 2 diabetes mellitus with diabetic polyneuropathy; Z98.890 Other specified postprocedural states; Z79.4 Long term (current) use of insulin | CPT/HCPCS: 11043 ==

== ENCOUNTER → 2022-07-12 15:28 | Outpatient (BNVA) | payer MEDICARE, SELFPAY | PROVIDERS: PCP Internal Medicine; Visit Provider Podiatrist Foot & Ankle Surgery | DX: A49.01 Methicillin susceptible Staphylococcus aureus infection, unspecified site (principal); M86.471 Chronic osteomyelitis with draining sinus, right ankle and foot; I73.9 Peripheral vascular disease, unspecified; E11.42 Type 2 diabetes mellitus with diabetic polyneuropathy; Z98.890 Other specified postprocedural states; L97.514 Non-pressure chronic ulcer of other part of right foot with necrosis of bone | CPT/HCPCS: 99214 ==

== ENCOUNTER → 2022-08-22 15:00 | Outpatient (BNVA) | payer MEDICARE, SELFPAY | PROVIDERS: PCP Internal Medicine; Visit Provider Podiatrist Foot & Ankle Surgery | DX: I73.9 Peripheral vascular disease, unspecified (principal); E11.42 Type 2 diabetes mellitus with diabetic polyneuropathy; Z79.4 Long term (current) use of insulin; Z89.421 Acquired absence of other right toe(s) | CPT/HCPCS: 99214 ==

== ENCOUNTER 2022-08-27 16:20 | Inpatient (IN) | payer MEDICARE, SELFPAY ==
[2022-08-27] VITALS (7 sets, daily range): BP systolic 115–161; BP diastolic 49–71; PULSE 75–86; RESP 18–26; TEMP 36.8–38.2; O2SAT 92–100; BMI 34.2
--- NOTE | 2022-08-27 16:43 | ECG_ITS ---
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 Measurements Intervals [place] Rate: 85 P: 54 WI: 252 QRS: 13 QRSD: 104 T: 140 QT: 367 QTc: 438 Interpretive Statements SINUS RHYTHM WITH FIRST DEGREE AV BLOCK ST DEVIATION AND MODERATE T-WAVE ABNORMALITY, CONSIDER LATERAL ISCHEMIA [-0.1+ mV T-WAVE IN I/aVL/V5/V6] Compared to ECG 12/20/2021 10:43:37 First degree AV block now present T-wave abnormality now present Possible ischemia now present Left ventricular hypertrophy no longer present ST (T wave) deviation no longer present Electronically Signed On 08-27-2022 18:17:12 CONSULTING SERVICES MANAGER by Jaime Moore M.D. [id number]
--- NOTE | 2022-08-27 17:00 | PC.PHAR ---
pt states he takes care of his own medications-pt states losartan was decreased to 50mg daily rx bottle brought in has 100mg daily filled on 08/22/22 90d/s-notes are made in the pharmacy comments
--- NOTE | 2022-08-27 17:07 | XRR_ITS ---
PROCEDURE INFORMATION: Exam: XR Chest Exam date and time: 08/27/2022 6:13 PM Age: 72 years old Clinical indication: Cough and shortness of breath; Prior surgery; Surgery date: 6+ months TECHNIQUE: Imaging protocol: Radiologic exam of the chest. Views: 1 view. COMPARISON: CR XR chest 2V* [id number] 12/20/2021 10:18 AM FINDINGS: Lungs: Hypoinflated lungs. Linear areas of scarring in the right mid lung. No consolidation. Pleural spaces: Suspected bilateral small volume pleural effusions. No pneumothorax. Heart/Mediastinum: Borderline cardiomegaly. Bones/joints: Sternotomy wires noted. Visualized osseous structures are intact. XR/XR chest 1V portable [id number] IMPRESSION: Suspected bilateral small volume pleural effusions.
[2022-08-27 17:29] LABS: Basophils # 0.1 10^3/uL (0.0-0.1); Basophils % 0.7 %; Eosinophils # 0.1 10^3/uL (0.0-0.8); Eosinophils % 1.3 %; Hematocrit 47.5 % (42.0-52.0); Hemoglobin 14.2 g/dL (11.7-16.6); Lymphocytes # 0.3 10^3/uL (0.8-4.8); Lymphocytes % 3.3 %; Mean Corpuscular HGB Conc 29.9 g/dL (30.0-36.0); Mean Corpuscular Volume 103.7 fl (80-94); Mean Platelet Volume 10.9 fL (7.4-10.4); Monocytes # 0.9 10^3/uL (0.2-0.9); Monocytes % 10.6 %; Neutrophils # 7.26 10^3/uL (1.8-7.7); Neutrophils % 83.9 %; Nucleated Red Blood Cells % 0 %; Platelet Count 177 10^3/cmm (130-400); Red Blood Count 4.58 10^6/uL (4.1-5.3); Red Cell Distribution Width 15.8 % (12.1-15.1); White Blood Count 8.7 10^3/uL (4.0-10.0)
[2022-08-27] MEDS: cefTRIAXone 1,000 MG in sodium chloride 0.9% (plus) 50 ML 100 MG IV (17:35)
[2022-08-27 17:50] LABS: Influenza A by IFA negative (Negative); Influenza B by IFA negative (Negative)
[2022-08-27 17:51] LABS: SARS Covid-2 Antigen negative (Negative)
[2022-08-27 18:05] LABS: Alanine Aminotransferase 28 U/L (0-41); Albumin Level 3.7 g/dL (3.5-5.2); Alkaline Phosphatase 79 U/L (40-130); Anion Gap 15.4 (5-19); Aspartate Amino Transferase 21 U/L (0-40); Blood Urea Nitrogen 18 mg/dL (8-23); Carbon Dioxide 26 mmol/L (22-29); Chloride 103 mmol/L (98-107); Globulin 3.3 g/dL (1.3-4.6); Glucose 102 mg/dL (65-115); NT Pro B Type Natriuretic Pept 6828 pg/mL (0-125); Osmolality Calculated 292 mOsm/kg (285-295); Potassium 4.4 mmol/L (3.5-5.1); Sodium 140 mmol/L (136-145); Total Bilirubin 3.6 mg/dL (0.15-1.2)
--- NOTE | 2022-08-27 18:12 | ED_ITS ---
HPI - SOB/Dyspnea General: Chief Complaint: Shortness of Breath/Dyspnea Stated Complaint: SOB/ ABDOMINAL DISTENTION Time Seen by Provider: 08/27/22 16:26 Source: patient and family Limitations: no limitations History of Present Illness: HPI Narrative: 72-year-old male reports that for the last few days he has been having a cough, shortness of breath, and general malaise. He was noted to have a low-grade temperature on arrival and I repeated his oral temperature in the room and it was 100.1. Patient reports he was unaware he had a fever. Some of his coughing produces phlegm; some is white and some of it is green. He feels like his abdomen is sort of swollen and his feet/ankles are also swollen. Patient has a known history of diastolic heart failure. Associated symptoms: Deny chest pain, nausea, syncope or vomiting Review of Systems General: Reports: 10 or more systems reviewed and unremarkable except in HPI and below Const: Denies: chills Card: Denies: chest pain or syncope GI: Denies: nausea, vomiting or diarrhea : Denies: flank pain or dysuria Skin/Breast: Denies: rash or sores Neuro: Denies: headache(s) PFSH ED PFSH: Medical History Acute hypokalemia Anticoagulation adequate with anticoagulant therapy Xarelto Atrial fibrillation Paroxysmal Benign prostatic hyperplasia Chronic anticoagulation Xarelto Congestive heart failure Diabetes Dyslipidemia Gangrene History of nonmelanoma skin cancer HTN (hypertension) Hypertensive urgency MSSA (methicillin susceptible Staphylococcus aureus) infection NSTEMI (non-ST elevated myocardial infarction) Obesity Osteomyelitis of toe of left foot PVD (peripheral vascular disease) 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 on 07/21/2021 TIA (transient ischemic attack) Varicose vein of leg Surgical History S/P AVR (aortic valve replacement) Bioprosthetic, bovine S/P cataract extraction S/P cholecystectomy Family History Father Diabetes Hypertension Grandfather Diabetes PATERNAL Hypertension PATERNAL Social History Smoking and tobacco status: former smoker Alcohol intake: former Marital status: / service: No Current occupational status: retired Current occupation: retired from [employer] Physical Exam Const: COMMON NORMALS: no limitations, alert and well nourished EXAM LIMITATIONS: no altered mental status GENERAL APPEARANCE: cooperative, well kempt and well developed ORIENTATION/CONSCIOUSNESS: Yes awake; not confused HENMT: COMMON NORMALS: normocephalic, atraumatic, external ears normal and Normal external nose present HEAD & SCALP: normal to inspection, normocephalic and atraumatic FACE & SINUS: face symmetric NOSE: Normal external nose present EXTERNAL EAR: Yes external ears normal MOUTH: lip normal; no muffled voice Eye: COMMON NORMALS: EOMs intact bilaterally and conjunctivae normal GENERAL EYE: appearance normal, both eyes and all related structures CONJUNCTIVA: Yes conjunctivae normal Neck/C-Spine: GENERAL: Yes normal visual inspection and Yes trachea midline Resp: EFFORT & INSPECTION: Yes able to speak in complete sentences, Yes symmetric chest movement, Yes tachypneic, No respiratory distress, No pursed lip breathing, No Actively coughing, No retractions and Yes uses accessory muscles Cardio: COMMON NORMALS: regular rate and regular rhythm RATE: regular rate RHYTHM: regular rhythm PERIPHERAL PULSES: radial pulses present GI: COMMON NORMALS: Soft to palpation INSPECTION: Yes normal to inspection PALPATION: Yes Soft to palpation, No Tenderness to palpation present (GI) and No Guarding due to palpation present (GI) Extremity: GENERAL: Yes normal exam except as noted OTHER: B/l LE edema Neuro: COMMON NORMALS: moves all extremities, no focal motor deficits and no sensory deficits noted SENSORIUM/ORIENTATION: Yes alert Psych: COMMON NORMALS: mental status grossly normal, Normal thought process present, cooperative, normal affect and speech normal APPEARANCE: Yes well kempt SPEECH: Yes normal speech THOUGHT PROCESS: Normal thought process present Skin: COMMON NORMALS: no rashes or lesions noted, turgor normal and no jaundice GENERAL SKIN EXAM: no rashes or lesions noted and turgor normal Course Vital Signs: Vital signs: Vital Signs Temperature 100.3 F H 08/28/22 12:00 Pulse Rate 76 08/28/22 12:00 Respiratory Rate 18 08/28/22 12:00 Blood Pressure 121/61 08/28/22 12:00 Pulse Oximetry 91 08/28/22 12:00 Oxygen Delivery Me thod 08/28/22 12:00 Oxygen Flow Rate 4 08/28/22 08:17 MDM - SOB/Dyspnea Medical Decision Making 72-year-old male presents with fever, shortness of breath, vague symptoms of discomfort primarily in his upper abdomen. He does have acute hypoxic respiratory failure. Chest x-ray does show what is either pulmonary edema or infectious infiltrate as well as blunted costophrenic angles bilaterally. Patient has clinical signs of heart failure as well. At this point it became unclear whether the fever was truly coming from the lungs or not. Because of his vague abdominal symptoms it was important to rule out any abdominal pathology. Total bilirubin is elevated. Other liver function tests are okay. A CT scan of the chest abdomen pelvis was performed. There was no pulmonary embolism. There was some interstitial edema as well as a moderate right and small left pleural effusion. The patient thought he still had his gallbladder but he does not as this was imaged both on CT and ultrasound. There is no ductal abnormality of the biliary system. At this point, I feel it is most likely that this is a respiratory pathogen. Rocephin and doxycycline have been administered in the ER as well as obtaining blood cultures. The patient does have a history of diabetic infections and will need to keep an eye out for this. Patient was admitted to the hospitalist for further treatment and testing. Lab Data 08/27/22 17:00 08/27/22 17:00 Labs/Radiology: Radiology Impressions Chest X-Ray 08/27/22 17:07 IMPRESSION: Suspected bilateral small volume pleural effusions. Chest/Abdomen/Pelvis CT 08/27/22 18:21 IMPRESSION: 1. Negative for pulmonary embolism. 2. Moderate volume right and small volume left pleural effusions. Interlobular septal thickening suggestive of interstitial pulmonary edema. IMPRESSION: No acute findings. Gallbladder Ultrasound 08/27/22 18:21 IMPRESSION: 1. No acute sonographic abnormalities of the right upper abdomen. 2. Right pleural effusion present. Laboratory Results WBC 8.7 10^3/uL (4.0-10.0) 08/27/22 17:00 RBC 4.58 10^6/uL (4.1-5.3) 08/27/22 17:00 Hgb 14.2 g/dL (11.7-16.6) 08/27/22 17:00 Hct 47.5 % (42.0-52.0) 08/27/22 17:00 MCV 103.7 fl (80-94) H 08/27/22 17:00 MCH 31.0 pg (28.0-34.0) 08/27/22 17:00 MCHC 29.9 g/dL (30.0-36.0) L 08/27/22 17:00 RDW 15.8 % (12.1-15.1) H 08/27/22 17:00 Plt Count 177 10^3/cmm (130-400) 08/27/22 17:00 MPV 10.9 fL (7.4-10.4) H 08/27/22 17:00 Neut % (Auto) 83.9 % 08/27/22 17:00 Lymph % (Auto) 3.3 % 08/27/22 17:00 [place] % (Auto) 10.6 % 08/27/22 17:00 Eos % (Auto) 1.3 % 08/27/22 17:00 Baso % (Auto) 0.7 % 08/27/22 17:00 Neut # (Auto) 7.26 10^3/uL (1.8-7.7) 08/27/22 17:00 Lymph # (Auto) 0.3 10^3/uL (0.8-4.8) L 08/27/22 17:00 [place] # (Auto) 0.9 10^3/uL (0.2-0.9) 08/27/22 17:00 Eos # (Auto) 0.1 10^3/uL (0.0-0.8) 08/27/22 17:00 Baso # (Auto) 0.1 10^3/uL (0.0-0.1) 08/27/22 17:00 Nucleated RBC % (auto) 0 % 08/27/22 17:00 Nucleated RBCs # 0.0 /100WBC 08/27/22 17:00 Sodium 140 mmol/L (136-145) 08/27/22 17:00 Potassium 4.4 mmol/L (3.5-5.1) 08/27/22 17:00 Chloride 103 mmol/L (98-107) 08/27/22 17:00 Carbon Dioxide 26 mmol/L (22-29) 08/27/22 17:00 Anion Gap 15.4 (5-19) 08/27/22 17:00 BUN 18 mg/dL (8-23) 08/27/22 17:00 Creatinine 1.0 mg/dL (0.7-1.2) 08/27/22 17:00 GFR Calculation Not Reportable 08/27/22 17:00 Glucose 102 mg/dL (65-115) 08/27/22 17:00 Calculated Osmolality 292 mOsm/kg (285-295) 08/27/22 17:00 Lactic Acid 1.5 mmol/L (0.5-2.2) 08/27/22 18:38 Calcium 9.0 mg/dL (8.5-10.5) 08/27/22 17:00 Magnesium 2.0 mg/dL (1.7-2.3) 08/27/22 17:00 Total Bilirubin 3.6 mg/dL (0.15-1.2) H 08/27/22 17:00 AST 21 U/L (0-40) 08/27/22 17:00 ALT 28 U/L (0-41) 08/27/22 17:00 Alkaline Phosphatase 79 U/L (40-130) 08/27/22 17:00 NT-Pro-B Natriuret Pep 6828 pg/mL (0-125) H 08/27/22 17:00 Total Protein 7.0 g/dL (6.6-8.7) 08/27/22 17:00 Albumin 3.7 g/dL (3.5-5.2) 08/27/22 17:00 Globulin 3.3 g/dL (1.3-4.6) 08/27/22 17:00 Procalcitonin 0.07 ng/mL (0-0.5) 08/27/22 17:00 Influenza Type A Ag negative (Negative) 08/27/22 17:25 Influenza Type B Ag negative (Negative) 08/27/22 17:25 SARS-CoV-2 Ag (Rapid) negative (Negative) 08/27/22 17:25 Discharge Plan Discharge Patient Disposition: Admitted As Inpatient Admit Provider: Rito Cage Clinical Impression: Parapneumonic effusion, Diastolic congestive heart failure, Acute respiratory failure with hypoxia Condition: Stable Coding Level of Care Code ED Inside Sales Recruiter for Chg Fwd Exam Comprehensive
--- NOTE | 2022-08-27 18:21 | USR_ITS ---
PROCEDURE INFORMATION: Exam: US Abdomen, Limited; Right Upper Quadrant Exam date and time: 08/27/2022 6:50 PM Age: 72 years old Clinical indication: Other: Elevated tbili = 3.6; Prior surgery; Surgery date: 6+ months; [facility]; Patient HX: Febrile 100.1 F, short of breath; Additional info: Fever, t bili elevated; Eval gb, liver, bile ducts TECHNIQUE: Imaging protocol: Real time ultrasound of the abdomen with image documentation. Limited exam focused on the right upper quadrant. COMPARISON: CT angio abd aorta runof [id number] 06/09/2021 1:47 PM FINDINGS: Pleural spaces: Right pleural effusion present. Liver: Normal. No masses. Gallbladder: Cholecystectomy. Biliary ducts: Normal. No stones. No dilation. Pancreas: Visualized pancreas is unremarkable. Right kidney: Right kidney measures 10.5 cm in length. No mass. No hydronephrosis. US/US gall bladder [id number] IMPRESSION: 1. No acute sonographic abnormalities of the right upper abdomen. 2. Right pleural effusion present.
--- NOTE | 2022-08-27 18:21 | CTR_ITS ---
PROCEDURE INFORMATION: Exam: CTA Chest With Contrast Exam date and time: 08/27/2022 8:02 PM Age: 72 years old Clinical indication: Fever; Dyspnea; Additional info: Fever, hypoxia TECHNIQUE: Imaging protocol: Computed tomographic angiography of the chest with contrast. 3D rendering (Not supervised by radiologist): MIP and/or 3D reconstructed images were created by the technologist. Radiation optimization: All CT scans at this facility use at least one of these dose optimization techniques: automated exposure control; mA and/or kV adjustment per patient size (includes targeted exams where dose is matched to clinical indication); or iterative reconstruction. Contrast material: OMNI 350; Contrast volume: 100 ml; Contrast route: INTRAVENOUS (IV); COMPARISON: CR (CHEST, ) 08/27/2022 6:13 PM RADIATION DOSE METRICS: Total DLP (mGy-cm): 1796.49 FINDINGS: Pulmonary arteries: Normal. No pulmonary emboli. Aorta: Unremarkable. No aortic aneurysm. No aortic dissection. Lungs: Atelectasis of the posterior lung bases adjacent to the effusions. Interlobular septal thickening. No consolidation. No masses. Pleural spaces: Moderate volume right and small volume left pleural effusions. No pneumothorax. Heart: Mild cardiomegaly. Aortic valve replacement. No pericardial effusion. Lymph nodes: Unremarkable. No enlarged lymph nodes. Bones/joints: Sternotomy wires noted. No acute fracture. Soft tissues: Unremarkable. PROCEDURE INFORMATION: Exam: CT Abdomen And Pelvis With Contrast Exam date and time: 08/27/2022 8:02 PM Age: 72 years old Clinical indication: Fever; Dyspnea; Additional info: Fever, hypoxia TECHNIQUE: Imaging protocol: Computed tomography of the abdomen and pelvis with contrast. Radiation optimization: All CT scans at this facility use at least one of these dose optimization techniques: automated exposure control; mA and/or kV adjustment per patient size (includes targeted exams where dose is matched to clinical indication); or iterative reconstruction. Contrast material: OMNI 350; Contrast volume: 100 ml; Contrast route: INTRAVENOUS (IV); COMPARISON: US gall bladder [id number] 08/27/2022 6:50 PM RADIATION DOSE METRICS: Total DLP (mGy-cm): 1796.49 FINDINGS: Liver: Normal. No mass. Gallbladder and bile ducts: Cholecystectomy. No ductal dilation. Pancreas: Atrophic pancreas with multiple coarse calcifications throughout suggesting sequela of chronic pancreatitis. No ductal dilation. Spleen: Normal. No splenomegaly. Adrenal glands: Normal. No mass. Kidneys and ureters: Normal. No hydronephrosis. Stomach and bowel: Unremarkable. No obstruction. No mucosal thickening. Appendix: No evidence of appendicitis. Intraperitoneal space: Unremarkable. No free air. No significant fluid collection. Vasculature: Unremarkable. No abdominal aortic aneurysm. Lymph nodes: Unremarkable. No enlarged lymph nodes. Urinary bladder: Unremarkable as visualized. Reproductive: Enlarged prostate. Bones/joints: No acute fracture. Soft tissues: Unremarkable. CT/CT angio chest w abd pel w con IMPRESSION: 1. Negative for pulmonary embolism. 2. Moderate volume right and small volume left pleural effusions. Interlobular septal thickening suggestive of interstitial pulmonary edema. IMPRESSION: No acute findings.
[2022-08-27 19:29] LABS: Lactic Sepsis W/Reflex 1.5 mmol/L (0.5-2.2)
[2022-08-27] MEDS: doxycycline 100 MG in sodium chloride 0.9% (plus) 100 ML IV (20:34)
--- NOTE | 2022-08-27 20:37 | PM.HP ---
Providers/Chief Complaint Primary Care Provider: Chon Bradshaw DO Chief Complaint: SOB/ ABDOMINAL DISTENTION History of Present Illness Surendra Roland is a 72 year old male presented to hospital for worsening shortness of breath. Patient is stating that since he has been experiencing orthopnea, PND, weight gain and shortness of breath. He has not noticed any chest pain, he has not noticed any fever, nausea, vomiting or diarrhea but has been noticing productive cough greenish sputum production. Patient is stating that he was told by the cash posting specialist to take extra dose of Lasix in case there is more than 2 pounds of weight gain he has gained more than 10 pounds in the last few days. He does not use oxygen at home. In the ER he is febrile, no leukocytosis or signs of sepsis Bilateral pleural effusion right greater than left negative for PE, He febrile temperature 100.8 abnormal bilirubin level likely heart failure related, patient does not have a gallbladder At the time of my evaluation he is requiring 3 to 4 L of oxygen which is a new requirement Review of Systems Const: Reports: chills, body aches and fatigue Eyes: Denies: change in vision ENMT: Denies: throat pain Card: Reports: dyspnea on exertion and orthopnea Resp: Reports: dyspnea and productive cough GI: Denies: abdominal pain : Denies: flank pain Musc: Denies: neck pain Skin/Breast: Denies: rash Neuro: Denies: headache(s) Psych: Reports: anxiety Endo: Denies: polyuria Lit/Lymph: Denies: easy bruising All/Imm: Denies: urticaria Medications/Allergies Home Medications Medication Instructions Recorded Confirmed Last Taken Type duloxetine 60 mg capsule,delayed 60 mg PO BEDTIME 02/22/20 08/27/22 08/26/22 History release (Cymbalta) tamsulosin 0.4 mg capsule (Flomax) 0.8 mg PO BEDTIME 02/22/20 08/27/22 08/26/22 History empagliflozin 25 mg tablet 25 mg PO QAM 05/06/21 08/27/22 08/27/22 History (Jardiance) multivitamin 1 tab PO QAM 05/06/21 08/27/22 08/27/22 History potassium chloride 20 mEq 20 meq PO QAM #90 tabs 06/30/21 08/27/22 08/27/22 Rx tablet,extended release cholecalciferol (vitamin D3) 25 25 mcg PO DAILY 08/01/21 08/27/22 1 Day Ago History mcg (1,000 unit) capsule ~12/21/21 rivaroxaban 20 mg tablet (Xarelto) 20 mg PO QPM #90 tabs 12/01/21 08/27/22 08/26/22 Rx carvedilol 25 mg tablet 25 mg PO BID #180 tabs 02/20/22 08/27/22 08/27/22 Rx furosemide 40 mg tablet 40 mg PO BID #90 tabs 03/12/22 08/27/22 Unknown Rx flash glucose sensor (FreeStyle #1 ea 05/01/22 08/27/22 Unknown History Marisela 14 Day Sensor kit) insulin aspart U-100 100 unit/mL 15 - 25 unit SUBCUT AC 05/30/22 08/27/22 Unknown History subcutaneous cartridge (Novolog PenFill U-100 Insulin aspart) insulin degludec 200 unit/mL (3 40 - 60 unit SUBCUT BEDTIME 05/30/22 08/27/22 Unknown History mL) subcutaneous pen (Tresiba FlexTouch U-200 insulin) losartan 50 mg tablet 50 mg PO QAM 05/30/22 08/27/22 08/27/22 History Diabetic shoes with inserts #1 ea 08/22/22 08/27/22 Unknown Rx brimonidine 0.2 %-timolol 0.5 % 1 drp ophthalmic (eye) BID 08/27/22 08/27/22 08/27/22 History eye drops (Combigan) ketoconazole 2 % topical cream 1 applic topical BID PRN scaly 08/27/22 08/27/22 Unknown History areas on face zinc acetate 50 mg (zinc) capsule 50 mg PO DAILY 08/27/22 08/27/22 Unknown History Allergies Allergy/AdvReac Type Severity Reaction Status Date / Time No Known Allergies Allergy Verified 08/27/22 16:50 PFSH Acute PFSH: Medical History Acute hypokalemia Anticoagulation adequate with anticoagulant therapy Xarelto Atrial fibrillation Paroxysmal Benign prostatic hyperplasia Chronic anticoagulation Xarelto Congestive heart failure Diabetes Dyslipidemia Gangrene History of nonmelanoma skin cancer HTN (hypertension) Hypertensive urgency MSSA (methicillin susceptible Staphylococcus aureus) infection NSTEMI (non-ST elevated myocardial infarction) Obesity Osteomyelitis of toe of left foot PVD (peripheral vascular disease) 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 on 07/21/2021 TIA (transient ischemic attack) Varicose vein of leg Surgical History S/P AVR (aortic valve replacement) Bioprosthetic, bovine S/P cataract extraction S/P cholecystectomy Family History Father Diabetes Hypertension Grandfather Diabetes PATERNAL Hypertension PATERNAL Social History Smoking and tobacco status: former smoker Alcohol intake: former Marital status: / service: No Current occupational status: retired Current occupation: retired from [employer] Vitals/I&O/Wt Last Vital Signs Temp 100.8 F H 08/27/22 16:35 Pulse 86 08/27/22 16:35 Resp 26 H 08/27/22 16:35 BP 122/71 08/27/22 18:22 Pulse Ox 97 08/27/22 18:22 O2 Del Method 08/27/22 18:22 Weight last 48 hrs Weight 108.409 kg Physical Exam Narrative: early male Currently on 4 L Michel breath sounds with crackles and rhonchi No active wheezing Abdomen soft Clinical signs of fluid overload 2+ pitting edema extending all the way up to his knees Awake and alert Nonfocal neuro exam Pleasant and cooperative Hemodynamically stable Data 08/27/22 17:00 08/27/22 17:00 Micro: Microbiology 08/27/22 18:38 Blood Culture - Preliminary Blood SPECIMEN COLLECTED 08/27/22 18:43 Blood Culture - Preliminary Blood SPECIMEN COLLECTED A&P Assessment and plan (1) Diastolic congestive heart failure: (2) Acute respiratory failure with hypoxia: (3) S/P AVR (aortic valve replacement): (4) Peripheral arterial disease: (5) 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 mellitus: (6) HTN (hypertension): (7) Congestive heart failure: Qualifiers: Heart failure chronicity: acute Heart failure type: diastolic Qualified Code(s): I50.31 - Acute diastolic (congestive) heart failure (8) Atrial fibrillation: Qualifiers: Atrial fibrillation type: longstanding persistent Qualified Code(s): I48.11 - Longstanding persistent atrial fibrillation Plan Acute diastolic CHF exacerbation Low-grade fever noted Concern for pneumonia CT chest requested Abnormal bilirubin could be related to underlying CHF exacerbation patient does not have a gallbladder I will give him IV Lasix along potassium supplement Last echo was done in 2019 EF preserved grade 2 diastolic dysfunction Will repeat echo in the morning Acute hypoxia Currently requiring 4 L Wean off to room air with diuresis Respiratory to assess Continue diuresis Low-grade fever noted We will treat him for possible community-acquired pneumonia Follow-up with CT chest report DuoNeb every 4 as needed Does not need thoracentesis A. fib without RVR Status post TAVR History of peripheral vascular disease no acute exacerbation Consistent carb cardiac diet Moderate dose sliding scale Full code Patient takes Xarelto Attestations Medical Necessity Statement*: Anticipating less than 2 midnights for management of CHF exacerbation Time Spent in Patient Care: 40 Coding Level of Care Code Acute Sales Ledger Clerk for Era Fwd Diagnoses Diastolic congestive heart failure I50.30 Acute respiratory failure with hypoxia J96.01 S/P AVR (aortic valve replacement) Z95.2 Peripheral arterial disease I73.9 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 mellitus E11.42 HTN (hypertension) I10 Congestive heart failure I50.31 Heart failure chronicity: acute Heart failure type: diastolic Atrial fibrillation I48.11 Atrial fibrillation type: longstanding persistent
[2022-08-27 21:10] LABS: Procalcitonin 0.07 ng/mL (0-0.5)
[2022-08-27] MEDS: tamsulosin 0.4 mg Capsule 0.8 MG PO (22:16)
[2022-08-27] MEDS: duloxetine 60 mg Capsule PO (22:16)
[2022-08-27 22:26] LABS: Glucose Point of Care 97 mg/dL (70-110)
[2022-08-27] MEDS: diazePAM 5 mg Tablet PO (22:47)
[2022-08-27] MEDS: acetaminophen 500 mg Tablet PO (22:47)
[2022-08-28] VITALS (7 sets, daily range): BP systolic 97–168; BP diastolic 52–65; PULSE 62–90; RESP 16–22; TEMP 36.8–37.9; O2SAT 90–95
[2022-08-28 05:29] LABS: Basophils # 0.1 10^3/uL (0.0-0.1); Basophils % 0.8 %; Eosinophils % 0.5 %; Hematocrit 42.7 % (42.0-52.0); Hemoglobin 13.3 g/dL (11.7-16.6); Lymphocytes # 0.6 10^3/uL (0.8-4.8); Lymphocytes % 9.2 %; Mean Corpuscular HGB Conc 31.1 g/dL (30.0-36.0); Mean Corpuscular Hemoglobin 30.6 pg (28.0-34.0); Mean Corpuscular Volume 98.4 fl (80-94); Mean Platelet Volume 10.3 fL (7.4-10.4); Monocytes # 0.7 10^3/uL (0.2-0.9); Monocytes % 10.9 %; Neutrophils # 5.05 10^3/uL (1.8-7.7); Neutrophils % 78.4 %; Nucleated Red Blood Cells % 0 %; Platelet Count 154 10^3/cmm (130-400); Red Blood Count 4.34 10^6/uL (4.1-5.3); Red Cell Distribution Width 15.6 % (12.1-15.1); White Blood Count 6.4 10^3/uL (4.0-10.0)
[2022-08-28] MEDS: potassium chloride ER 20 mEq Tablet PO (05:38)
[2022-08-28] MEDS: losartan 50 mg Tablet PO (05:38)
[2022-08-28 05:56] LABS: Alanine Aminotransferase 26 U/L (0-41); Albumin Level 3.6 g/dL (3.5-5.2); Alkaline Phosphatase 69 U/L (40-130); Blood Urea Nitrogen 21 mg/dL (8-23); C Reactive Protein 31.7 mg/L (0.0-4.9); Carbon Dioxide 25 mmol/L (22-29); Chloride 105 mmol/L (98-107); Globulin 2.9 g/dL (1.3-4.6); Glucose 86 mg/dL (65-115); Magnesium 2.1 mg/dL (1.7-2.3); Osmolality Calculated 292 mOsm/kg (285-295); Phosphorus 3.7 mg/dL (2.5-4.5); Sodium 140 mmol/L (136-145); Total Bilirubin 3.2 mg/dL (0.15-1.2); Total Protein 6.5 g/dL (6.6-8.7)
[2022-08-28 06:00] LABS: Anion Gap 14.5 (5-19)
[2022-08-28 06:01] LABS: Aspartate Amino Transferase 28 U/L (0-40); Potassium 4.5 mmol/L (3.5-5.1)
[2022-08-28 06:49] LABS: Glucose Point of Care 86 mg/dL (70-110)
[2022-08-28] MEDS: rivaroxaban 10 mg Tablet 20 MG PO (08:18)
[2022-08-28] MEDS: carvedilol 25 mg Tablet PO ×2 (08:18→17:21)
[2022-08-28] MEDS: azithromycin 250 mg Tablet 500 MG PO (08:18)
[2022-08-28] MEDS: sennosides-docusate Tablet 1 TAB PO (08:18)
[2022-08-28] MEDS: FUROsemide 10 mg/mL SDV 10mL 60 MG IVP ×2 (08:19→17:21)
[2022-08-28] MEDS: cefTRIAXone 1,000 MG in sodium chloride 0.9% (plus) 50 ML 100 MG IV (08:19)
--- NOTE | 2022-08-28 11:30 | PC.CHAP ---
Pastoral Care Encounter/Spiritual Assessment Type of Contact [] Declined physiatrist visit [] Patient/Family/Request visit [] Outpatient visit [] Follow-up visit [] Physician referral [] Code/Alert [x] Routine visit [] Staff referral [] Actively dying [] Patient sleeping [] Family support [] [] Out of room [] Palliative care [] [] Receiving care in room [] Pre-surgical visit [] Trauma [] Long length of stay [] ICU visit [] Other: Relational/Emotional Strength [x] Patient feels connected with others/family/visitors/staff [] Distress [] Loneliness/isolation [] Abandonment Spirituality of Patient [x] Person of [place] [] Attends Church of their [place] [x] Believes in Prayer [] Reads Bible or Holiness materials [] There are Spiritual issues to be addressed Assistant 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'S Soccer Coach Interventions [x] Prayer [x] Active listening x [] Spiritual counseling [] Bereavement support [] Provided bereavement packet [] Provided Bible/devotional materials [] Provided toy/stuffed animal, coloring book to patient or family member [] Provided Communion [] Anointing/[place] [] Salvation [x] Completed spiritual assessment [] Other: Impact on Illness or Injury [] Angry [] Fearful [] Anxious [] Often cries [] Exhaustion [] Unable to work [] Unable to attend episcopalian [] Unable to walk/stand [] Unable to read [] Unable to drive [] Unable to eat/drink [] Unable to sleep [] Unable to be with family [] Patient intubated [] Other: Summary Time spent with patient 10 min
[2022-08-28] MEDS: insulin lispro 100 unit/1 mL SUBCUT ×2 (11:51→17:26)
[2022-08-28 12:02] LABS: Glucose Point of Care 144 mg/dL (70-110)
--- NOTE | 2022-08-28 12:27 | P.PN_ITS ---
Subjective Subjective: States is not feeling the best, his oxygen is not on, states he took it off as it was bothering the tops of his ears. He has been coughing. He denies any aspiration with food or drink. Denies any nausea or vomiting. Discussed with him regarding pleural effusion. Discussed he is currently on an ticoagulation, discussed switching his for now to prophylactic Lovenox dose to allow for possible thoracentesis, and he is agreeable, although he states really would rather prefer not to have any needles put in his chest if possible. Measured oxygen saturation, 76% Voxel oxygen. Instructed him not to take his oxygen off, we adjusted the cannula so that he does not resting on top of his ears. He states also use urinal, requested for commode to be at bedside as well as discussed with him he is at risk of desaturation, possibly syncope, fall, or other complications to which stated he understood reasoning not to be up without his oxygen. Vitals/I&O/Wt Last Vital Signs Temp 100.3 F H 08/28/22 12:00 Pulse 76 08/28/22 12:00 Resp 18 08/28/22 12:00 BP 121/61 08/28/22 12:00 Pulse Ox 91 08/28/22 12:00 O2 Del Method 08/28/22 12:00 O2 Flow Rate 4 08/28/22 08:17 08/27/22 08/28/22 08/28/22 22:59 06:59 14:59 Intake Total 150 / 150 110 / 110 Output Total 350 / 350 1050 / 1050 Balance 150 / 150 -350 / -200 -940 / -940 Weight last 48 hrs Weight 108.409 kg Weight 108.409 kg Physical Exam Const: COMMON NORMALS: patient oriented x3 and alert GENERAL APPEARANCE: cooperative ORIENTATION/CONSCIOUSNESS: Yes awake HENMT: COMMON NORMALS: oropharynx normal Neck/C-Spine: COMMON NORMALS: no JVD Resp: COMMON NORMALS: normal respiratory effort AUSCULTATION: rhonchi and wheezes Cardio: COMMON NORMALS: no JVD, regular rhythm, S1 normal heart sound present, S2 normal heart sound present and No murmurs present (Cardio) RHYTHM: regular rhythm HEART SOUNDS: S1 normal heart sound present and S2 normal heart sound present GI: COMMON NORMALS: Normal to inspection, nondistended, normoactive bowel sounds present, Soft to palpation and non-tender PALPATION: Yes Soft to palpation Extremity: COMMON NORMALS: no joint enlargement GENERAL: Yes edema (2+) Neuro: COMMON NORMALS: patient oriented x3 and moves all extremities SENSORIUM/ORIENTATION: Yes alert Skin: COMMON NORMALS: no rashes or lesions noted GENERAL SKIN EXAM: no rashes or lesions noted Data 08/28/22 04:37 08/28/22 04:37 Micro: Microbiology 08/27/22 18:38 Blood Culture - Preliminary Blood SPECIMEN COLLECTED 08/27/22 18:43 Blood Culture - Preliminary Blood SPECIMEN COLLECTED A&P Assessment and plan (1) Acute respiratory failure with hypoxia: Appears multifactorial secondary to right lower lung pneumonia as well as CHF exacerbation. Continue oxygen support, for years, discussed with him hypoxia on room air, he states understands reasoning of keeping the oxygen on especially getting up without it. (2) Pneumonia: Continue ceftriaxone, azithromycin. Follow-up blood culture. Obtain sputum culture if able to provide. He denies any aspiration with food or drink. Denies any nausea or vomiting. Influenza and COVID-19 antigens negative. Request urine bacterial antigens. Procalcitonin not elevated. Will check respiratory viral panel. (3) Diastolic congestive heart failure: Continue Lasix 60 mg every 12 hours, monitor I&O, weights, continue cardiac diet. Suspected acute diastolic, with history of grade 2 diastolic dysfunction TTE in 2019, at that time EF normal. Noted bioprosthetic aortic valve. TTE pending (4) Parapneumonic effusion: Right lung effusion moderate, difficult to tell if parapneumonic or secondary to CHF. He is on Xarelto. For now would like to avoid procedure, but agrees to hold anticoagulation to keep the option open so this can be revisited depending on his condition. (5) S/P AVR (aortic valve replacement): TTE pending (6) Peripheral arterial disease: (7) 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 mellitus: (8) HTN (hypertension): (9) Congestive heart failure: Qualifiers: Heart failure chronicity: acute Heart failure type: diastolic Qualified Code(s): I50.31 - Acute diastolic (congestive) heart failure (10) Atrial fibrillation: Qualifiers: Atrial fibrillation type: longstanding persistent Qualified Code(s): I48.11 - Longstanding persistent atrial fibrillation Plan Hyperbilirubinemia: No acute radiographic abnormality seen right upper quadrant. Currently no abdominal pain or GI symptoms. A. fib without RVR Status post TAVR History of peripheral vascular disease no acute exacerbation DM: Consistent carb cardiac diet. Moderate dose sliding scale Full code Attestations Medical Necessity Statement*: Continue admission for assessment management of respiratory failure, community-acquired pneumonia, possible parapneumonic effusion, acute diastolic CHF exacerbation. Coding Level of Care Code Acute Quill Machine Operator for [facility] Fwd Diagnoses Acute respiratory failure with hypoxia J96.01 Pneumonia J18.9 Diastolic congestive heart failure I50.30 Parapneumonic effusion J18.9; J91.8 S/P AVR (aortic valve replacement) Z95.2 Peripheral arterial disease I73.9 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 mellitus E11.42 HTN (hypertension) I10 Congestive heart failure I50.31 Heart failure chronicity: acute Heart failure type: diastolic Atrial fibrillation I48.11 Atrial fibrillation type: longstanding persistent
[2022-08-28 16:34] LABS: Glucose Point of Care 167 mg/dL (70-110)
[2022-08-28] MEDS: duloxetine 60 mg Capsule PO (20:35)
[2022-08-28] MEDS: tamsulosin 0.4 mg Capsule 0.8 MG PO (20:35)
[2022-08-28] MEDS: diazePAM 5 mg Tablet PO (20:36)
[2022-08-28] MEDS: insulin glargine 100 units/1 mL 40 UNIT SUBCUT (20:36)
[2022-08-28 20:47] LABS: Glucose Point of Care 189 mg/dL (70-110)
[2022-08-28 22:37] LABS: Adenovirus Not Detected (NOT DETECT); Chlamydia Pneumoniae Not Detected (NOT DETECT); Coronavirus 229E,HKU1,NL63,OC4 Not Detected (NOT DETECT); Human Metapneumovirus Not Detected (NOT DETECT); Human Rhinovirus/Enterovirus Not Detected (NOT DETECT); Influenza A Detected (NOT DETECT); Influenza A H1 Not Detected (NOT DETECT); Influenza A H1-2009 Detected (NOT DETECT); Influenza A H3 Not Detected (NOT DETECT); Influenza B Not Detected (NOT DETECT); Mycoplasma Pneumoniae Not Detected (NOT DETECT); Parainfluenza Virus Type 1 Not Detected (NOT DETECT); Parainfluenza Virus Type 2 Not Detected (NOT DETECT); Parainfluenza Virus Type 3 Not Detected (NOT DETECT); Parainfluenza Virus Type 4 Not Detected (NOT DETECT); Respiratory Syncytial Virus A Not Detected (NOT DETECT); Respiratory Syncytial Virus B Not Detected (NOT DETECT); SARS-COV-2 Not Detected (NOT DETECT)
[2022-08-28] MEDS: acetaminophen 500 mg Tablet PO (22:37)
[2022-08-29] VITALS (7 sets, daily range): BP systolic 92–119; BP diastolic 47–72; PULSE 56–89; RESP 16–22; TEMP 36.6–38.2; O2SAT 91–96
[2022-08-29] MEDS: ondansetron 2 mg/ML SDV 2 mL 4 MG IVP (00:33)
[2022-08-29 05:03] LABS: Basophils % 0.5 %; Eosinophils # 0.1 10^3/uL (0.0-0.8); Eosinophils % 2.2 %; Hematocrit 40.2 % (42.0-52.0); Hemoglobin 12.8 g/dL (11.7-16.6); Lymphocytes # 0.4 10^3/uL (0.8-4.8); Lymphocytes % 7.1 %; Mean Corpuscular HGB Conc 31.8 g/dL (30.0-36.0); Mean Corpuscular Volume 97.3 fl (80-94); Mean Platelet Volume 10.2 fL (7.4-10.4); Monocytes # 0.6 10^3/uL (0.2-0.9); Monocytes % 10.1 %; Neutrophils # 4.73 10^3/uL (1.8-7.7); Neutrophils % 79.9 %; Nucleated Red Blood Cells % 0 %; Platelet Count 141 10^3/cmm (130-400); Red Blood Count 4.13 10^6/uL (4.1-5.3); Red Cell Distribution Width 15.3 % (12.1-15.1); White Blood Count 5.9 10^3/uL (4.0-10.0)
[2022-08-29 05:23] LABS: Alanine Aminotransferase 23 U/L (0-41); Alkaline Phosphatase 59 U/L (40-130); Anion Gap 14.9 (5-19); Aspartate Amino Transferase 27 U/L (0-40); Blood Urea Nitrogen 33 mg/dL (8-23); Calcium 8.5 mg/dL (8.5-10.5); Carbon Dioxide 24 mmol/L (22-29); Chloride 101 mmol/L (98-107); Glucose 113 mg/dL (65-115); Osmolality Calculated 290 mOsm/kg (285-295); Potassium 3.9 mmol/L (3.5-5.1); Sodium 136 mmol/L (136-145); Total Bilirubin 1.9 mg/dL (0.15-1.2)
[2022-08-29] MEDS: potassium chloride ER 20 mEq Tablet PO (05:33)
[2022-08-29] MEDS: losartan 50 mg Tablet PO (05:33)
[2022-08-29 06:35] LABS: Glucose Point of Care 102 mg/dL (70-110)
[2022-08-29] MEDS: cefTRIAXone 1,000 MG in sodium chloride 0.9% (plus) 50 ML 100 MG IV (08:17)
[2022-08-29] MEDS: azithromycin 250 mg Tablet 500 MG PO (08:17)
[2022-08-29] MEDS: enoxaparin 40 mg/0.4 mL Syringe SUBCUT (08:17)
[2022-08-29] MEDS: carvedilol 25 mg Tablet PO ×2 (08:17→18:35)
[2022-08-29] MEDS: sennosides-docusate Tablet 1 TAB PO (08:17)
[2022-08-29] MEDS: FUROsemide 10 mg/mL SDV 10mL 60 MG IVP (08:18)
[2022-08-29] MEDS: ipratropium-albuterol 3 mL Neb INHALATION (09:14)
[2022-08-29] MEDS: NON-FORMULARY MEDICATION (Brimonidine-Timolol [Combigan] 0.2-0.5 % drops) 1 EACH EYE-BOTH ×2 (11:43→18:35)
[2022-08-29 11:57] LABS: Glucose Point of Care 194 mg/dL (70-110)
[2022-08-29] MEDS: insulin lispro 100 unit/1 mL SUBCUT ×2 (12:02→18:35)
--- NOTE | 2022-08-29 15:57 | P.PN_ITS ---
Subjective Subjective: Today he feels today he is improving. He is not coughing as much, breathing slightly easier. Denies chest pain. Discussed with him diagnosis of influenza A. Discussed unfortunately Tamiflu has been on national shortage. Discussed with him regarding our EZEQUIEL, creatinine increased up to 1.4, BUN up to 33. Discussed we will hold his diuretic for now, reassess. Vitals/I&O/Wt Last Vital Signs Temp 100.7 F H 08/29/22 11:10 Pulse 70 08/29/22 11:10 Resp 16 08/29/22 11:10 BP 94/47 08/29/22 11:10 Pulse Ox 95 08/29/22 11:10 O2 Del Method 08/29/22 11:10 O2 Flow Rate 4 08/29/22 09:14 08/29/22 08/29/22 08/29/22 06:59 14:59 22:59 Intake Total 360 / 590 910 / 910 Output Total 500 / 2175 Balance -140 / -1585 910 / 910 Weight last 48 hrs Weight 108.409 kg Weight 108.409 kg Physical Exam Narrative: Sitting up in chair. He appears to be more comfortable. Const: COMMON NORMALS: patient oriented x3 and alert GENERAL APPEARANCE: cooperative ORIENTATION/CONSCIOUSNESS: Yes awake HENMT: COMMON NORMALS: oropharynx normal Neck/C-Spine: COMMON NORMALS: no JVD Resp: COMMON NORMALS: normal respiratory effort AUSCULTATION: rhonchi (Sathish nter/fewer) Cardio: COMMON NORMALS: no JVD, regular rhythm, S1 normal heart sound present, S2 normal heart sound present and No murmurs present (Cardio) RHYTHM: regular rhythm HEART SOUNDS: S1 normal heart sound present and S2 normal heart sound present GI: COMMON NORMALS: Normal to inspection, nondistended, normoactive bowel sounds present, Soft to palpation and non-tender PALPATION: Yes Soft to palpation Extremity: COMMON NORMALS: no joint enlargement GENERAL: Yes edema (1+) Neuro: COMMON NORMALS: patient oriented x3 and moves all extremities SENSORIUM/ORIENTATION: Yes alert Skin: COMMON NORMALS: no rashes or lesions noted GENERAL SKIN EXAM: no rashes or lesions noted Data 08/29/22 04:20 08/29/22 04:20 Micro: Microbiology 08/28/22 13:34 Gram Stain - Final Sputum - Expectorated Sputum Sputum Culture - Preliminary 08/27/22 18:38 Blood Culture - Preliminary Blood NEGATIVE TO DATE 08/27/22 18:43 Blood Culture - Preliminary Blood NEGATIVE TO DATE 08/28/22 13:34 Legionella Urinary Antigen - Final Urine,Voided Bacterial Antigens - Final A&P Assessment and plan (1) Acute respiratory failure with hypoxia: Influenza A pneumonia. Discussed with him. Unfortunately Tamiflu unavailable. Continue oxygen support, wean down as tolerating. Continue empiric antibiotic coverage for possible additional bacterial pneumonia. He seems to be improving, although again having low-grade fever 100.7 Fahrenheit. Noted EZEQUIEL, BUN increased, hold diuretic for now. Appears multifactorial secondary to influenza pneumonia, possible superimposed bacterial pneumonia. Acute CHF. Diuretic on hold for now due to EZEQUIEL. Reassess recovery from his condition given also has right lower lobe pleural effusion at least moderate in size on initial imaging. Xarelto has been held. (2) Pneumonia: Continue ceftriaxone, azithromycin. Follow-up blood culture. Obtain sputum culture if able to provide. He denies any aspiration with food or drink. Denies any nausea or vomiting. Influenza and COVID-19 antigens negative. Request urine bacterial antigens. Procalcitonin not elevated. Will check respiratory viral panel. (3) Diastolic congestive heart failure: Lasix held for now. Reassess volume status, renal function with EZEQUIEL. Monitor I&O, weights, continue cardiac diet. Suspected acute diastolic, with history of grade 2 diastolic dysfunction TTE in 2019, at that time EF normal. Noted bioprosthetic aortic valve. TTE pending (4) Parapneumonic effusion: Right lung effusion moderate, difficult to tell if parapneumonic or secondary to CHF. He is on Xarelto. Suspect probably less likely parapneumonic. No influenza pneumonia. He has low-grade fever, but no leukocytosis. Seems to be improving symptomatically. Procalcitonin was not elevated. Still, in Xarelto was held for need for possible thoracentesis. For now would like to avoid procedure, but agrees to hold anticoagulation to keep the option open so this can be revisited depending on his condition. (5) S/P AVR (aortic valve replacement): TTE pending (6) Peripheral arterial disease: (7) 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 mellitus: (8) HTN (hypertension): (9) Congestive heart failure: Qualifiers: Heart failure chronicity: acute Heart failure type: diastolic Qualified Code(s): I50.31 - Acute diastolic (congestive) heart failure (10) Atrial fibrillation: Qualifiers: Atrial fibrillation type: longstanding persistent Qualified Code(s): I48.11 - Longstanding persistent atrial fibrillation Plan Hyperbilirubinemia: No acute radiographic abnormality seen right upper quadrant. Currently no abdominal pain or GI symptoms. A. fib without RVR Status post TAVR History of peripheral vascular disease no acute exacerbation DM: Consistent carb cardiac diet. Moderate dose sliding scale Full code Attestations Medical Necessity Statement*: Admission for assessment management of hypoxic failure, influenza and pneumonia and gentleman with acute CHF, EZEQUIEL. 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
--- NOTE | 2022-08-29 16:06 | USCV_ITS ---
Luan Surendra Age: 72 Gender: M : 1950 Exam Date: 08/29/2022 16:40 Ordering Phys: Alo De Los Santos MD Technologist: Irvin De Paz [place] [facility] [place]: CHF, EFFUSION, bioprosthetic AO valve BP: 94 / 47 HR: 68 Rhythm: Other Technical Quality: Adequate MEASUREMENTS (Male / Female) Normal Values 2D ECHO LV Diastolic Diameter PLAX 5.3 cm 4.2 - 5.9 / 3.9 - 5.3 cm LV Systolic Diameter PLAX 3.8 cm IVS Diastolic Thickness 1.2 cm 0.6 - 1.0 / 0.6 - 0.9 cm IVS Systolic Thickness 1.1 cm LVPW Diastolic Thickness 1.2 cm 0.6 - 1.0 / 0.6 - 0.9 cm LVPW Systolic Thickness 1.6 cm LVOT Diameter 2.0 cm LV Ejection Fraction 2D Teich 55.2 % LV Ejection Fraction MOD 2C 46.1 % LV Ejection Fraction 2C AL 45.5 % LA Diameter 4.4 cm LA Width 3.3 cm LA Height 4.6 cm RA Width 2.9 cm RA Height 4.4 cm Aorta at Sinotubular Diameter 2.7 cm IVC Diameter 2.4 cm M-MODE Aortic Annulus Diameter 2.9 cm LA Ao Ratio MM 1.4 MV E Point Septal Separation 2.2 cm DOPPLER AV Peak Velocity 289.7 cm/s LVOT Peak Velocity 91.0 cm/s AV Area Cont Eq vti 0.9 cm squared AV Area Cont Eq pk 1.0 cm squared MV Peak Velocity 154.0 cm/s MV Area PHT 6.3 cm squared MV E' Velocity 63.0 cm/s Mitral E to MV E' Ratio 12.3 Mitral E to LV E' Lateral Ratio 10.5 Mitral E to LV E' Septal Ratio 15.0 TR Peak Velocity 308.2 cm/s TR Peak Gradient 38.0 mmHg TR Mean Velocity 222.3 cm/s TR Mean Gradient 22.4 mmHg TR Velocity Time Integral 77.5 cm Right Atrial Pressure 3.0 mmHg Pulmonary Artery Systolic Pressu 41.0 mmHg PV Peak Velocity 73.3 cm/s RV Acceleration Time 0.1 s RV Ejection Time 0.2 s RV AcT/ET 0.3 FINDINGS Left Ventricle Estimated LV EF 47 %. Mildly increased left ventricular cavity size. Diffuse hypokinesia of the left ventricle Right Ventricle The right ventricle is normal in size and function. Right Atrium The right atrium is normal in size. Left Atrium Mildly increased left atrial size. Mitral Valve Thickened mitral valve. Moderate mitral annular calcification. Mild-moderate mitral valve regurgitation. Aortic Valve The bioprosthetic valve at the aortic position appears to be well-seated. Possibly moderate eccentric aortic regurgitation. Peak velocity across the aortic valve was 2.95 m/s with a peak gradient of 35 with a mean gradient of 22 mmHg. The valve area was calculated to be 0.85 cm squared. The pressure half-time of aortic regurgitation was 394 ms. This is suggesting moderate aortic regurgitation Tricuspid Valve Trace to mild tricuspid valve regurgitation. Pulmonic Valve Pulmonic valve not well visualized. Pericardium No pericardial effusion. Aorta Normal aortic annulus size. IVC Normal inferior vena cava. CONCLUSIONS The bioprosthetic valve at the aortic position appears to be well-seated. Possibly moderate eccentric aortic regurgitation. Severe low gradient aortic valve stenosis, based on the valve area. Mildly dilated left ventricle. Diffuse hypokinesia of the left ventricle with ejection fraction 47% Thickened mitral valve. Moderate mitral annular calcification. Mild-moderate mitral valve regurgitation. Mildly increased left atrial size. Trace to mild tricuspid valve regurgitation. Estimated pulmonary artery peak systolic pressure 41 mmHg There is no pericardial effusion. There are no intracardiac masses. Compared to the study from 07/05/2020, the drop in the LV ejection fraction and the wall motion normalities appears to be new Dr Nelson Garcia MD [facility] (Electronically Signed) Final Date: 30 August 2022 00:22 S
[2022-08-29 16:41] LABS: Glucose Point of Care 156 mg/dL (70-110)
--- NOTE | 2022-08-29 20:08 | PC.NURSE ---
REPORT TAKEN FROM TIFFANY ARCHIBALD. PATIENT A&O, VSS. PATIENT RESTING ON SIDE OF THE BED, STATING THAT THE ROOM IS GLOOMY BECAUSE IT FEELS LIKE PEOPLE HAVE IN HERE. PATIENT STATES THAT HE FEELS OKAY PHYSICALLY BUT MENTALLY I AM NOT DOING TOO WELL. PATIENT REMAINED SITTING ON SIDE OF BED, BED LOCKED IN LOWEST POSITION, CALL LIGHT WITHIN REACH.
--- NOTE | 2022-08-29 20:17 | PC.NURSE ---
PATIENT AMBULATED INTO [place], STATING THAT HE BELIEVES THAT THE DOCTORS ARE DOUBLE DIPPING ME ON LOSARTAN, WHICH IS WHY MY BLOOD PRESSURE IS SO LOW. WHEN PATIENT WAS ASKED WHAT LOSARTAN DOSAGE HE TAKES AT HOME, PATIENT STATED 50 MG, WHICH IS WHAT IS ON MED LIST. PATIENT ASKED TO ROOM AND EDUCATED TO WEAR MASK NEXT TIME HE STEPS INTO HALLWAY PART OF HIS DROPLET PRECAUTIONS. PATIENT STATED NO FURTHER NEEDS AT THIS TIME.
[2022-08-29 20:59] LABS: Glucose Point of Care 178 mg/dL (70-110)
[2022-08-29] MEDS: insulin glargine 100 units/1 mL 40 UNIT SUBCUT (21:29)
[2022-08-29] MEDS: duloxetine 60 mg Capsule PO (21:29)
[2022-08-29] MEDS: tamsulosin 0.4 mg Capsule 0.8 MG PO (21:29)
[2022-08-29] MEDS: diazePAM 5 mg Tablet PO (21:34)
--- NOTE | 2022-08-29 21:36 | PC.NURSE ---
UPON ROUNDING, PATIENT ASKED NURSE, DO YOU WANT TO SEE AN APPROPRIATE PICTURE OF MY WEINERS? PATIENT PROCEEDED TO SHOW NURSE PICTURE OF TWO RED COLORED DACHSHUNDS WHICH PATIENT STATED WERE THE TWO REDHEAD GIRLS I SLEEP WITH EVERY NIGHT.
[2022-08-30] VITALS (10 sets, daily range): BP systolic 103–118; BP diastolic 42–69; PULSE 45–90; RESP 13–18; TEMP 36.3–37.2; O2SAT 92–100
--- NOTE | 2022-08-30 04:14 | PC.NURSE ---
PATIENT'S HR CONTINUED TO DROP IN THE LOW 50-40s ON TELEMETRY WHILE RESTING THIS PM. PATIENT CURRENTLY RESTING IN BEDSIDE CHAIR WITH CALL LIGHT WITHIN REACH. DR. SAN NOTIFIED OF HR VIA SECURE MESSAGING.
[2022-08-30 05:45] LABS: Basophils % 0.7 %; Eosinophils # 0.1 10^3/uL (0.0-0.8); Eosinophils % 2.6 %; Hematocrit 40.6 % (42.0-52.0); Hemoglobin 12.8 g/dL (11.7-16.6); Lymphocytes # 0.7 10^3/uL (0.8-4.8); Lymphocytes % 16.6 %; Mean Corpuscular HGB Conc 31.5 g/dL (30.0-36.0); Mean Corpuscular Hemoglobin 30.5 pg (28.0-34.0); Mean Corpuscular Volume 96.9 fl (80-94); Mean Platelet Volume 10.6 fL (7.4-10.4); Monocytes # 0.7 10^3/uL (0.2-0.9); Monocytes % 15.9 %; Neutrophils # 2.73 10^3/uL (1.8-7.7); Nucleated Red Blood Cells % 0 %; Platelet Count 151 10^3/cmm (130-400); Red Blood Count 4.19 10^6/uL (4.1-5.3); Red Cell Distribution Width 15.1 % (12.1-15.1); White Blood Count 4.3 10^3/uL (4.0-10.0)
[2022-08-30 06:06] LABS: Alanine Aminotransferase 32 U/L (0-41); Albumin Level 3.3 g/dL (3.5-5.2); Alkaline Phosphatase 58 U/L (40-130); Anion Gap 13.6 (5-19); Aspartate Amino Transferase 40 U/L (0-40); Blood Urea Nitrogen 46 mg/dL (8-23); Calcium 8.7 mg/dL (8.5-10.5); Carbon Dioxide 25 mmol/L (22-29); Chloride 99 mmol/L (98-107); Globulin 2.9 g/dL (1.3-4.6); Glucose 69 mg/dL (65-115); Osmolality Calculated 288 mOsm/kg (285-295); Potassium 3.6 mmol/L (3.5-5.1); Sodium 134 mmol/L (136-145); Total Bilirubin 0.9 mg/dL (0.15-1.2); Total Protein 6.2 g/dL (6.6-8.7)
[2022-08-30] MEDS: losartan 50 mg Tablet PO (06:36)
[2022-08-30] MEDS: potassium chloride ER 20 mEq Tablet PO (06:37)
[2022-08-30 06:57] LABS: Glucose Point of Care 97 mg/dL (70-110)
[2022-08-30] MEDS: azithromycin 250 mg Tablet 500 MG PO (09:39)
[2022-08-30] MEDS: NON-FORMULARY MEDICATION (Brimonidine-Timolol [Combigan] 0.2-0.5 % drops) 1 EACH EYE-BOTH ×2 (09:39→17:32)
[2022-08-30] MEDS: enoxaparin 30 mg/0.3 mL Syringe SUBCUT (10:31)
[2022-08-30 10:44] LABS: Glucose Point of Care 349 mg/dL (70-110)
[2022-08-30] MEDS: cefTRIAXone 1,000 MG in sodium chloride 0.9% (plus) 50 ML 100 MG IV (12:07)
[2022-08-30] MEDS: insulin lispro 100 unit/1 mL SUBCUT ×2 (12:07→17:32)
--- NOTE | 2022-08-30 14:24 | P.PN_ITS ---
Subjective Subjective: He is still coughing. Reports diarrhea when asked how many bowel movements states 3-4/day, watery. Heart rate low today down to 50s. Carvedilol held. Vitals/I&O/Wt Last Vital Signs Temp 98.1 F 08/30/22 11:18 Pulse 53 L 08/30/22 11:18 Resp 16 08/30/22 11:18 BP 103/42 08/30/22 11:18 Pulse Ox 93 08/30/22 11:18 O2 Del Method 08/30/22 11:18 O2 Flow Rate 2 08/30/22 08:00 08/29/22 08/30/22 08/30/22 22:59 06:59 14:59 Intake Total 740 / 1650 120 / 1770 630 / 630 Output Total 200 / 200 Balance 740 / 1650 -80 / 1570 630 / 630 Physical Exam Narrative: Sitting up in chair. He appears to be more comfortable. Const: COMMON NORMALS: patient oriented x3 and alert GENERAL APPEARANCE: cooperative ORIENTATION/CONSCIOUSNESS: Yes awake HENMT: COMMON NORMALS: oropharynx normal Neck/C-Spine: COMMON NORMALS: no JVD Resp: COMMON NORMALS: normal respiratory effort AUSCULTATION: no rhonchi (Fainter/fewer), wheezes and diminished lung sounds Cardio: COMMON NORMALS: no JVD, regular rhythm, S1 normal heart sound present, S2 normal heart sound present and No murmurs present (Cardio) RHYTHM: regular rhythm HEART SOUNDS: S1 normal heart sound present and S2 normal heart sound present GI: COMMON NORMALS: Normal to inspection, nondistended, normoactive bowel sounds present, Soft to palpation and non-tender PALPATION: Yes Soft to palpation Extremity: COMMON NORMALS: no joint enlargement GENERAL: Yes edema (1+) Neuro: COMMON NORMALS: patient oriented x3 and moves all extremities SENSORIUM/ORIENTATION: Yes alert Skin: COMMON NORMALS: no rashes or lesions noted GENERAL SKIN EXAM: no rashes or lesions noted Data 08/30/22 04:52 08/30/22 04:52 Micro: Microbiology 08/27/22 20:40 MRSA Culture - Final Nose 08/28/22 13:34 Gram Stain - Final Sputum - Expectorated Sputum Sputum Culture - Preliminary A&P Assessment and plan (1) Acute respiratory failure with hypoxia: Today he is still wheezing. He still having cough. Not quite as before. Oxygen, oxygenation has been slowly improving. Additional low-grade fever last night 100 Fahrenheit. We will repeat chest x-ray in the morning for reassessment of pleural effusion. Continue empiric antibiotic coverage for possible bacterial pneumonia. Influenza A pneumonia. Unfortunately Tamiflu unavailable. Continue oxygen support, wean down as tolerating. Noted EZEQUIEL, BUN increased, hold diuretic for now. Possibly secondary to diarrhea. Echocardiogram with leukocytoclasia unclear control, EF 47%. Severe low gradient aortic valve stenosis. Possibly moderate eccentric aortic regurgitation. Appears multifactorial secondary to influenza pneumonia, possible superimposed bacterial pneumonia. Acute CHF. Diuretic on hold for now due to EZEQUIEL. Reassess recovery from his condition given also has right lower lobe pleural effusion at least moderate in size on initial imaging. Xarelto has been held. (2) Pneumonia: Continue ceftriaxone, azithromycin for suspected superimposed bacterial pneumonia on influenza and pneumonia. Follow-up blood culture. Obtain sputum culture if able to provide. He denies any aspiration with food or drink. Denies any nausea or vomiting. Influenza and COVID-19 antigens negative. Negative urine bacterial antigens. Procalcitonin not elevated. Influenza A pneumonia (3) Diastolic congestive heart failure: New decrease in ejection fraction, last was having acute systolic and diastolic congestive heart failure. Diffuse hypokinesia of left ventricle. EF 47%. Additionally noted severe low gradient aortic valve stenosis with possible moderate eccentric aortic regurgitation. Will benefit from additional assessment. Lasix held for now. Reassess volume status, renal function with EZEQUIEL. Monitor I&O, weights, continue cardiac diet. (4) EZEQUIEL (acute kidney injury): Creatinine up to 2. Diuretics have been held. May be secondary to diarrhea. No obstructive uropathy on CT. (5) Parapneumonic effusion: Repeat chest x-ray. Right lung effusion moderate, difficult to tell if parapneumonic or secondary to CHF. He is on Xarelto. Suspect probably less likely parapneumonic. No influenza pneumonia. He has low-grade fever, but no leukocytosis. Seems to be improving symptomatically. Procalcitonin was not elevated. Still, in Xarelto was held for need for possible thoracentesis. For now would like to avoid procedure, but agrees to hold anticoagulation to keep the option open so this can be revisited depending on his condition. (6) Aortic valve disease: The bioprosthetic valve at the aortic position appears to be ?well-seated.? ?Possibly moderate eccentric aortic regurgitation.? ?Severe low gradient aortic valve stenosis, based on the valve ?area. Will need follow-up after recovery from acute condition. (7) S/P AVR (aortic valve replacement): As above (8) Peripheral arterial disease: (9) 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 mellitus: (10) HTN (hypertension): (11) Congestive heart failure: Qualifiers: Heart failure chronicity: acute Heart failure type: diastolic Qualifie d Code(s): I50.31 - Acute diastolic (congestive) heart failure (12) Atrial fibrillation: Qualifiers: Atrial fibrillation type: longstanding persistent Qualified Code(s): I48.11 - Longstanding persistent atrial fibrillation (13) Bradycardia: Heart rates in the 50s. On carvedilol in setting of EZEQUIEL. Morning dose held. As EZEQUIEL appears to be worse hold evening dose as well, will resume at 3.125 mg twice daily in the morning, reassess. Vitals, renal function. Plan Diarrhea: 3-4 liquid stools. Check C. difficile Hyperbilirubinemia: Resolved. No acute radiographic abnormality seen right upper quadrant. Currently no abdominal pain or GI symptoms. A. fib without RVR Status post TAVR History of peripheral vascular disease no acute exacerbation DM: Consistent carb cardiac diet. Moderate dose sliding scale Full code Attestations Medical Necessity Statement*: Continue admission for assessment management of pneumonia, influenza pneumonia with superimposed bacterial pneumonia suspected, CHF with acute decrease in ejection fraction, with noted severe aortic stenosis of bioprosthetic aortic valve with moderate regurgitation which are new, EZEQUIEL and additional comorbidities as above. Coding Level of Care Code Acute Care Administrative Tech for [facility] Fwd Diagnoses Acute respiratory failure with hypoxia J96.01 Pneumonia J18.9 Diastolic congestive heart failure I50.30 EZEQUIEL (acute kidney injury) N17.9 Parapneumonic effusion J18.9; J91.8 Aortic valve disease I35.9 S/P AVR (aortic valve replacement) Z95.2 Peripheral arterial disease I73.9 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 mellitus E11.42 HTN (hypertension) I10 Congestive heart failure I50.31 Heart failure chronicity: acute Heart failure type: diastolic Atrial fibrillation I48.11 Atrial fibrillation type: longstanding persistent Bradycardia R00.1
[2022-08-30 16:50] LABS: Glucose Point of Care 226 mg/dL (70-110)
--- NOTE | 2022-08-30 18:42 | PC.NURSE ---
Patient complained to this RN that his bottom felt raw and requested something for it. This RN stated I can bring you in a cream, but I need to look at your bottom . The patient refused stating that there is a place that I draw the line, and that's it Education provided that I needed to assess the patients skin and look at his bottom for open areas. The patient continued to refuse.
[2022-08-30 20:40] LABS: Glucose Point of Care 147 mg/dL (70-110)
[2022-08-30] MEDS: ipratropium-albuterol 3 mL Neb INHALATION (20:49)
[2022-08-30] MEDS: tamsulosin 0.4 mg Capsule 0.8 MG PO (21:29)
[2022-08-30] MEDS: duloxetine 60 mg Capsule PO (21:29)
[2022-08-30] MEDS: insulin glargine 100 units/1 mL 40 UNIT SUBCUT (21:29)
--- NOTE | 2022-08-30 23:59 | PC.NURSE ---
PATIENT'S HR RUNNING IN LOW 40-50s, HAS DROPPED TO 38 BUT COMES BACK UP. PATIENT STATES HE FEELS OKAY. DR STAPLETON NOTIFIED VIA SECURE MESSAGING.
[2022-08-31] VITALS (11 sets, daily range): BP systolic 87–127; BP diastolic 34–78; PULSE 47–91; RESP 16–20; TEMP 36.3–36.6; O2SAT 91–98
[2022-08-31] MEDS: diazePAM 5 mg Tablet PO ×2 (00:45→21:27)
[2022-08-31 03:51] LABS: Basophils % 0.5 %; Eosinophils # 0.2 10^3/uL (0.0-0.8); Eosinophils % 4.3 %; Hematocrit 40.8 % (42.0-52.0); Hemoglobin 12.7 g/dL (11.7-16.6); Lymphocytes # 0.8 10^3/uL (0.8-4.8); Lymphocytes % 20.7 %; Mean Corpuscular HGB Conc 31.1 g/dL (30.0-36.0); Mean Corpuscular Hemoglobin 30.8 pg (28.0-34.0); Mean Corpuscular Volume 98.8 fl (80-94); Mean Platelet Volume 10.6 fL (7.4-10.4); Monocytes # 0.6 10^3/uL (0.2-0.9); Monocytes % 14.4 %; Neutrophils # 2.38 10^3/uL (1.8-7.7); Neutrophils % 59.8 %; Nucleated Red Blood Cells % 0 %; Platelet Count 148 10^3/cmm (130-400); Red Blood Count 4.13 10^6/uL (4.1-5.3); Red Cell Distribution Width 14.9 % (12.1-15.1)
[2022-08-31 04:09] LABS: Alanine Aminotransferase 39 U/L (0-41); Albumin Level 3.6 g/dL (3.5-5.2); Alkaline Phosphatase 56 U/L (40-130); Anion Gap 12.9 (5-19); Aspartate Amino Transferase 44 U/L (0-40); Blood Urea Nitrogen 55 mg/dL (8-23); Calcium 8.7 mg/dL (8.5-10.5); Carbon Dioxide 25 mmol/L (22-29); Chloride 103 mmol/L (98-107); Globulin 2.6 g/dL (1.3-4.6); Glucose 46 mg/dL (65-115); Osmolality Calculated 296 mOsm/kg (285-295); Potassium 3.9 mmol/L (3.5-5.1); Sodium 137 mmol/L (136-145); Total Bilirubin 0.6 mg/dL (0.15-1.2); Total Protein 6.2 g/dL (6.6-8.7)
[2022-08-31] MEDS: potassium chloride ER 20 mEq Tablet PO (05:53)
--- NOTE | 2022-08-31 06:00 | XRR_ITS ---
PROCEDURE INFORMATION: Exam: XR Chest Exam date and time: 08/31/2022 5:03 AM Age: 72 years old Clinical indication: Shortness of breath; Additional info: Hypoxia TECHNIQUE: Imaging protocol: Radiologic exam of the chest. Views: 1 view. COMPARISON: CR (CHEST, ) 08/27/2022 6:13 PM FINDINGS: Lungs: There is mild prominence and indistinctness of the pulmonary vasculature, mild peribronchial cuffing and bilateral interstitial opacities present, findings suggesting pulmonary edema. Pleural spaces: Unremarkable. No pleural effusion. No pneumothorax. Heart/Mediastinum: The cardiac silhouette is at the upper limits of normal. Bones/joints: Unremarkable. XR/XR chest 1V portable [id number] IMPRESSION: 1. Mildly prominent cardiac silhouette, mild prominence and indistinctness of the pulmonary vasculature, mild peribronchial cuffing and increased interstitial opacities in the mid lower hemithoraces bilaterally, findings suggesting pulmonary edema.
[2022-08-31 06:47] LABS: Glucose Point of Care 57 mg/dL (70-110)
[2022-08-31] MEDS: NON-FORMULARY MEDICATION (Brimonidine-Timolol [Combigan] 0.2-0.5 % drops) 1 EACH EYE-BOTH ×2 (08:10→18:10)
[2022-08-31 08:11] LABS: Glucose Point of Care 63 mg/dL (70-110)
[2022-08-31] MEDS: enoxaparin 30 mg/0.3 mL Syringe SUBCUT (08:11)
[2022-08-31] MEDS: cefTRIAXone 1,000 MG in sodium chloride 0.9% (plus) 50 ML 100 MG IV (08:13)
[2022-08-31] MEDS: azithromycin 250 mg Tablet 500 MG PO (08:13)
[2022-08-31] MEDS: ipratropium-albuterol 3 mL Neb INHALATION ×3 (09:14→20:02)
[2022-08-31 11:08] LABS: Glucose Point of Care 165 mg/dL (70-110)
--- NOTE | 2022-08-31 11:51 | PC.SOCIAL ---
IMM update IMM updated with patient. Verbalized an understanding. Initialled, dated, timed, and placed in chart.
[2022-08-31] MEDS: insulin lispro 100 unit/1 mL SUBCUT ×2 (13:31→18:10)
--- NOTE | 2022-08-31 15:07 | PM.CONSULT ---
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 De Los Santos Attending Physician: Alo De Los Santos Primary Care Provider: Chon Bradshaw DO History of Present Illness History of Present Illness Surendra Roland is a 72 year old male with a history of aortic valve replacement, high blood pressure,peripheral artery disease and atrial fibrillation, he is presented to complaints of progressive shortness of breath and a cough, low-grade fever. He was tested positive for influenza. He had a right lower lobe pneumonia. He also was found to have features of congestive heart failure with the BNP in the 6000 range. His echocardiogram revealed LV ejection fraction around 47%, a significant drop from the previous LV ejection fraction by echocardiogram. He also was found to have low gradient severe aortic valve stenosis. Cardiology consult is requested for further cardiac evaluation and recommendations. This patient had aortic valve surgery in 2011. He apparently did not have any significant obstructive coronary artery disease. He had a peripheral artery intervention last year, when he presented with a critical limb ischemia. He had a gangrene of the right fourth toe from diabetes and had to be amputated. Apparently he has been in his baseline state of health up until last couple of days when he started having some increasing shortness of breath. He was advised to take extra dose of Lasix as outpatient. Apparently the symptoms kept getting worse. He also had some amount of orthopnea PND. He came to the hospital with these complaints. He denies any chest pain or chest tightness. No chills. No significant cough. In the hospital admission, shortness of breath seems to be improving. He also had a low-grade fever on the hospital already has been remaining afebrile for last 48 hours. Review of Systems Narrative: CONSTITUTIONAL: Possible low-grade fever at home. Significant shortness of breath with activities. EYES: No blurring of vision or other visual disturbances lately. ENT: No hoarseness of voice, auditory disturbances or sore throat. CARDIOVASCULAR: As mentioned above. RESPIRATORY: As mentioned above. GASTROINTESTINAL: No hematemesis or melena. GENITOURINARY: No dysuria or hematuria. INTEGUMENTARY: No skin rashes or history of skin cancer. 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 HEMATOLOGIC: No bleeding disorders or significant anemia. ENDOCRINE: No history of polyuria or polydipsia. 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 Medications/Allergies Home Medications Medication Instructions Recorded Confirmed Last Taken Type duloxetine 60 mg capsule,delayed 60 mg PO BEDTIME 02/22/20 08/27/22 08/26/22 History release (Cymbalta) tamsulosin 0.4 mg capsule (Flomax) 0.8 mg PO BEDTIME 02/22/20 08/27/22 08/26/22 History empagliflozin 25 mg tablet 25 mg PO QAM 05/06/21 08/27/22 08/27/22 History (Jardiance) multivitamin 1 tab PO QAM 05/06/21 08/27/22 08/27/22 History potassium chloride 20 mEq 20 meq PO QAM #90 tabs 06/30/21 08/27/22 08/27/22 Rx tablet,extended release cholecalciferol (vitamin D3) 25 25 mcg PO DAILY 08/01/21 08/27/22 1 Day Ago History mcg (1,000 unit) capsule ~12/21/21 rivaroxaban 20 mg tablet (Xarelto) 20 mg PO QPM #90 tabs 12/01/21 08/27/22 08/26/22 Rx carvedilol 25 mg tablet 25 mg PO BID #180 tabs 02/20/22 08/27/22 08/27/22 Rx flash glucose sensor (FreeStyle #1 ea 05/01/22 08/27/22 Unknown History Marisela 14 Day Sensor kit) insulin aspart U-100 100 unit/mL 15 - 25 unit SUBCUT AC 05/30/22 08/27/22 Unknown History subcutaneous cartridge (Novolog PenFill U-100 Insulin aspart) insulin degludec 200 unit/mL (3 40 - 60 unit SUBCUT BEDTIME 05/30/22 08/27/22 Unknown History mL) subcutaneous pen (Tresiba FlexTouch U-200 insulin) losartan 50 mg tablet 50 mg PO QAM 05/30/22 08/27/22 08/27/22 History Diabetic shoes with inserts #1 ea 08/22/22 08/27/22 Unknown Rx brimonidine 0.2 %-timolol 0.5 % 1 drp ophthalmic (eye) BID 08/27/22 08/27/22 08/27/22 History eye drops (Combigan) ketoconazole 2 % topical cream 1 applic topical BID PRN scaly 08/27/22 08/27/22 Unknown History areas on face zinc acetate 50 mg (zinc) capsule 50 mg PO DAILY 08/27/22 08/27/22 Unknown History furosemide 40 mg tablet 40 mg PO BID #90 tabs 08/28/22 Unknown Rx Allergies Allergy/AdvReac Type Severity Reaction Status Date / Time No Known Allergies Allergy Verified 08/27/22 16:50 Current Medications Generic Name Dose Route Start Last Admin Trade Name Freq PRN Reason Stop Dose Admin Acetaminophen 500 mg 08/27/22 21:44 08/28/22 22:37 Acetaminophen 500 Mg Tablet PO 500 mg Q4H PRN Administration fever Albuterol/Ipratropium 3 ml 08/27/22 21:44 08/29/22 09:14 Ipratropium-Albuterol 3 Ml Neb INHALATION 3 ml Q6H PRN Administration SHORTNESS OF BREATH Albuterol/Ipratropium 3 ml 08/30/22 20:00 08/31/22 13:34 Ipratropium-Albuterol 3 Ml Neb INHALATION 3 ml Q6H.RESP JYOTI Administration Azithromycin 500 mg 08/28/22 09:00 08/31/22 08:13 Azithromycin 250 Mg Tablet PO 500 mg DAILY JYOTI Administration Protocol Diazepam 5 mg 08/28/22 20:10 08/31/22 00:45 Diazepam 5 Mg Tablet PO 5 mg DAILY PRN Administration SLEEP Duloxetine HCl 60 mg 08/27/22 21:44 08/30/22 21:29 Duloxetine 60 Mg Capsule PO 60 mg BEDTIME JYOTI Administration Enoxaparin Sodium 30 mg 08/30/22 09:00 08/31/22 08:11 Enoxaparin 30 Mg/0.3 Ml Syringe SUBCUT 30 mg Q24H JYOTI Administration Furosemide 60 mg 08/28/22 09:00 08/29/22 08:18 Furosemide 10 Mg/Ml Sdv 10ml IVP 60 mg BID JYOTI Administration Ceftriaxone Sodium 1,000 mg/ 50 mls @ 100 mls/hr 08/28/22 09:00 08/31/22 11:24 Sodium Chloride IV Infused DAILY JYOTI Infusion Protocol Insulin Glargine 40 unit 08/28/22 21:00 08/30/22 21:29 Insulin Glargine 100 Units/1 Ml SUBCUT 40 unit BEDTIME JYOTI Administration Insulin Human Lispro 0 unit 08/28/22 08:00 08/31/22 13:31 Insulin Lispro 100 Unit/1 Ml SUBCUT 4 unit TIDWM JYOTI Administration Protocol Losartan Potassium 50 mg 08/28/22 06:00 08/30/22 06:36 Losartan 50 Mg Tablet PO 50 mg QAM JYOTI Administration Non-Formulary Medication 1 drop 08/28/22 09:00 08/31/22 08:10 Brimonidine-Timolol [Combigan] EYE-BOTH 1 drop BID JYOTI Administration Ondansetron HCl 4 mg 08/27/22 21:44 08/29/22 00:33 Ondansetron 2 Mg/Ml Sdv 2 Ml IVP 4 mg Q6H PRN Administration NAUSEA AND VOMITING Potassium Chloride 20 meq 08/28/22 06:00 08/31/22 05:53 Potassium Chloride Er 20 Meq Tablet PO 20 meq QAM JYOTI Administration Senna/Docusate Sodium 1 tab 08/28/22 09:00 08/30/22 09:42 Sennosides-Docusate Tablet PO Not Given DAILY [facility] Tamsulosin HCl 0.8 mg 08/27/22 21:44 08/30/22 21:29 Tamsulosin 0.4 Mg Capsule PO 0.8 mg BEDTIME JYOTI Administration PFSH Acute PFSH: Medical History Acute hypokalemia Anticoagulation adequate with anticoagulant therapy Xarelto Atrial fibrillation Paroxysmal Benign prostatic hyperplasia Chronic anticoagulation Xarelto Congestive heart failure Diabetes Dyslipidemia Gangrene History of nonmelanoma skin cancer HTN (hypertension) Hypertensive urgency MSSA (methicillin susceptible Staphylococcus aureus) infection NSTEMI (non-ST elevated myocardial infarction) Obesity Osteomyelitis of toe of left foot PVD (peripheral vascular disease) 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 on 07/21/2021 TIA (transient ischemic attack) Varicose vein of leg Surgical History S/P AVR (aortic valve replacement) Bioprosthetic, bovine S/P cataract extraction S/P cholecystectomy Family History Father Diabetes Hypertension Grandfather Diabetes PATERNAL Hypertension PATERNAL Social History Smoking and tobacco status: former smoker Alcohol intake: former Marital status: / service: No Current occupational status: retired Current occupation: retired from [employer] Vitals/I&O/Wt Last Vital Signs Temp 97.8 F 08/31/22 11:56 Pulse 65 08/31/22 13:34 Resp 18 08/31/22 13:34 BP 126/61 08/31/22 11:56 Pulse Ox 93 08/31/22 13:34 O2 Del Method 08/31/22 13:34 O2 Flow Rate 2 08/30/22 20:49 08/31/22 08/31/22 08/31/22 06:59 14:59 22:59 Intake Total 480 / 1230 170 / 170 Output Total 300 / 300 Balance 480 / 1230 -130 / -130 Physical Exam Narrative: GENERAL: The patient is alert and oriented times three. Not in any acute distress. HEENT: No significant pallor, icterus or lymphadenopathy.Oral cavity: There are no mucous membrane lesions. NECK: Trachea appears to be central. No masses noted. No JVD or thyromegaly appreciated. RESPIRATORY: Chest is symmetrical. No intercostals muscle retraction or any accessory muscle activation. There is no chest wall tenderness. Breath sounds are heard bilaterally. No rales or rhonchi heard. No evidence of any consolidation. BREASTS: Deferred. HEART: The first heart sound is variable. Second heart sound is normal. No S3. Ejection systolic murmur grade 3/6 in the aortic area. No diastolic murmurs. No pericardial rub. ABDOMEN: No vessel pulsations or distention. No tenderness. No organomegaly appreciated. Bowel sounds are normally heard. : Deferred. RECTAL: Deferred. LYMPHATIC: No lymphadenopathy noted in the neck. EXTREMITIES: Features of chronic venous stasis bilaterally, more so on the left side. Trace to 1+ edema on the right lower extremity. 1-2+ edema on the left lower extremity. MUSCULOSKELETAL: No acute joint deformities or swelling. Status post amputation of the right fourth toe SKIN: There are no significant rashes or ecchymosis NEUROPSYCHIATRIC: The patient is alert and oriented x3. Appears to be in a good mood. No tremors or rigidity noted. Minimal weakness of the right lower extremity Data 08/31/22 03:21 08/31/22 03:21 Micro: Microbiology 08/30/22 20:50 C.difficile Toxin B Gene (PCR) - Final Stool Routine Collection 08/28/22 13:34 Gram Stain - Final Sputum - Expectorated Sputum Sputum Culture - Preliminary Echo: My impression: The echocardiogram on 08/29/2022 to review The bioprosthetic valve at the aortic position appears to be ?well-seated.? ?Possibly moderate eccentric aortic regurgitation.? ?Severe low gradient aortic valve stenosis, based on the valve ?area. ?Mildly dilated left ventricle.? Diffuse hypokinesia of the left ?ventricle with ejection fraction 47% ? Thickened mitral valve.? Moderate mitral annular calcification.?Mild-moderate mitral valve regurgitation. ?Mildly increased left atrial size. ?Trace to mild tricuspid valve regurgitation. ?Estimated pulmonary artery peak systolic pressure 41 mmHg.?There is no pericardial effusion. ?There are no intracardiac masses. ?Compared to the study from 07/05/2020, the drop in the LV ?ejection fraction and the wall motion normalities appears to be ?new EKG 1: My Interpretation: Normal sinus rhythm with a first-degree AV block. Nonspecific ST-T changes. EKG computer-generated impression: Chest/Abdomen/Pelvis CT 08/27/22 18:21 IMPRESSION: 1. Negative for pulmonary embolism. 2. Moderate volume right and small volume left pleural effusions. Interlobular septal thickening suggestive of interstitial pulmonary edema. IMPRESSION: No acute findings. Gallbladder Ultrasound 08/27/22 18:21 IMPRESSION: 1. No acute sonographic abnormalities of the right upper abdomen. 2. Right pleural effusion present. Chest X-Ray 08/31/22 06:00 IMPRESSION: 1. Mildly prominent cardiac silhouette, mild prominence and indistinctness of the pulmonary vasculature, mild peribronchial cuffing and increased interstitial opacities in the mid lower hemithoraces bilaterally, findings suggesting pulmonary edema. A&P Assessment and plan (1) Cardiomyopathy: The etiology of the LV dysfunction is not clear at this time. Possibility of atrial fibrillation causing LV dysfunction is a consideration. In view of the patient's multiple risk factors, coronary artery disease causing LV dysfunction and heart failure also is a consideration. For further evaluation of the coronary status, a Myocardial perfusion imaging would be appropriate. Patient apparently has no chest pain at this time. (2) Aortic valve disease: Patient has features of a severe low gradient aortic valve stenosis. This needs to be further evaluated. Patient may benefit from a transesophageal echocardiogram and possible cardiac catheterization to further evaluate his cardiovascular status. (3) Congestive heart failure: Patient's heart failure is compensated. We may go ahead and do a repeat BMP to see the trend. Patient may be carefully treated with diuretics. The stress of pneumonia and arrhythmia may be playing a role. Ischemia also could be a contributing factor. We will have her troponin T. I will go ahead and do a random troponin T to look for any evidence of myocardial injury. 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 Currently is asymptomatic. May currently on the current medications. (6) HTN (hypertension): Normotensive. Continue on the current medications. Plan Patient may benefit from a Myocardial perfusion imaging, to further evaluate the coronary status. We will try to do it as early as possible. If the patient is wanting to go home, it may be appropriate to do it as an outpatient since he has no chest pain no specific cardiac symptoms. However he if he has a markedly elevated troponin T I may hold off on the discharge. Thank for the opportunity to eval this patient and make the recommendation Consult Attestations Medical Necessity Statement: Patient requires continued hospital stay for close monitoring and further management Coding Level of Care Code Acute Adz Worker for [facility] Medical Decision Making High Complexity Diagnoses Cardiomyopathy I42.9 Aortic valve disease I35.9 Congestive heart failure I50.31 Heart failure chronicity: acute Heart failure type: diastolic Diastolic congestive heart failure I50.30 Peripheral arterial disease I73.9 HTN (hypertension) I10
[2022-08-31 16:49] LABS: Glucose Point of Care 202 mg/dL (70-110)
--- NOTE | 2022-08-31 17:56 | P.PN_ITS ---
Subjective Subjective: He continues to improve in terms of his respiratory symptoms. Any less cough. Overall having less malaise. Has not been up very much, has gotten up to the commode. Says that he did not get lightheaded. Denies chest pain. Discussed with him regarding some improvement in EZEQUIEL. Discussed regarding findings suggestive of persistent pulmonary edema possibly with some interstitial pneumonia on x-ray. Discussed with him also regarding concerning findings on echocardiogram which. Also will discuss with cardiology. So far no further diarrhea. Discussed with him C. difficile negative. Vitals/I&O/Wt Last Vital Signs Temp 97.8 F 08/31/22 11:56 Pulse 60 08/31/22 15:15 Resp 17 08/31/22 15:15 BP 119/64 08/31/22 15:15 Pulse Ox 97 08/31/22 15:15 O2 Del Method 08/31/22 15:15 O2 Flow Rate 2 08/30/22 20:49 08/31/22 08/31/22 08/31/22 06:59 14:59 22:59 Intake Total 480 / 1230 170 / 170 Output Total 300 / 300 Balance 480 / 1230 -130 / -130 Physical Exam Narrative: Sitting up in chair. He appears to be more comfortable. Very hard of hearing. Const: COMMON NORMALS: patient oriented x3 and alert GENERAL APPEARANCE: cooperative ORIENTATION/CONSCIOUSNESS: Yes awake HENMT: COMMON NORMALS: oropharynx normal Neck/C-Spine: COMMON NORMALS: no JVD Resp: COMMON NORMALS: normal respiratory effort AUSCULTATION: no rhonchi (Fainter/fewer), wheezes and diminished lung sounds Cardio: COMMON NORMALS: no JVD, regular rhythm, S1 normal heart sound present, S2 normal heart sound present and No murmurs present (Cardio) RHYTHM: regular rhythm HEART SOUNDS: S1 normal heart sound present and S2 normal heart sound present GI: COMMON NORMALS: Normal to inspection, nondistended, normoactive bowel sounds present, Soft to palpation and non-tender PALPATION: Yes Soft to palpation Extremity: COMMON NORMALS: no joint enlargement GENERAL: Yes edema (1+) Neuro: COMMON NORMALS: patient oriented x3 and moves all extremities SENSORIUM/ORIENTATION: Yes alert Skin: COMMON NORMALS: no rashes or lesions noted GENERAL SKIN EXAM: no rashes or lesions noted Data 08/31/22 03:21 08/31/22 03:21 Micro: Microbiology 08/28/22 13:34 Gram Stain - Final Sputum - Expectorated Sputum Sputum Culture - Final 08/30/22 20:50 C.difficile Toxin B Gene (PCR) - Final Stool Routine Collection A&P Assessment and plan (1) Acute respiratory failure with hypoxia: Wheezing episode resolved. Cough improving. Fever appears to have gone away. Malaise improving. Influenza appears to be resolving. At least at rest oxygenation appears to have improved and he weaned off oxygen so far. Some persistent mild edema. Lasix had been on hold. Chest x-ray with appearance of persistent pulmonary edema, possibly with some interstitial pneumonia findings. Discussed with him. EZEQUIEL with slight improvement today creatinine down to 1.7. For now hold diuretic, recheck renal function tomorrow, consider resumption of diuretic in case continue to improve. Additionally concerning findings on TTE with new decrease in ejection fraction to 47%, mild LV dilation, now replaced bioprosthetic aortic valve appears to also have severe stenosis, and possibly moderate regurgitation which are all new findings. Discussed with him, discussed with his outpatient geotechnical operating engineer and on-call geotechnical operating engineer. Appreciate consultation. Otherwise continue ceftriaxone and azithromycin for possible superimposed bacterial pneumonia. On repeat chest x-ray pleural effusion appears to have resolved. Appears multifactorial secondary to influenza pneumonia, possible superimposed bacterial pneumonia. Acute CHF. Initially also pleural effusion. (2) Diastolic congestive heart failure: Diuretics on hold currently. Reassess renal function. In case continue to improve consider resumption of diuretic. Noted persistence of findings of pulm edema on x-ray. Some persistence of worsening edema. Oxygenation overall has been improving with improvement in pneumonia. Cardiology consultation for additional assessment of new decrease in ejection fraction, last was having acute systolic and diastolic congestive heart failure. Diffuse hypokinesia of left ventricle. EF 47%. Additionally noted severe low gradient aortic valve stenosis with possible moderate eccentric aortic regurgitation. Lasix and losartan held for now. Reassess volume status, renal function with EZEQUIEL. Monitor I&O, weights, continue cardiac diet. (3) Pneumonia: Continue ceftriaxone, azithromycin for suspected superimposed bacterial pneumonia on influenza and pneumonia. Follow-up blood culture. Obtain sputum culture if able to provide. He denies any aspiration with food or drink. Denies any nausea or vomiting. Influenza and COVID-19 antigens negative. Negative urine bacterial antigens. Procalcitonin not elevated. Influenza A pneumonia (4) EZEQUIEL (acute kidney injury): Creatinine up to 2. Diuretics have been held. May be secondary to diarrhea. No obstructive uropathy on CT. (5) Parapneumonic effusion: Repeat chest x-ray. Right lung effusion moderate, difficult to tell if parapneumonic or secondary to CHF. He is on Xarelto. Suspect probably less likely parapneumonic. No influenza pneumonia. He has low-grade fever, but no leukocytosis. Seems to be improving symptomatically. Procalcitonin was not elevated. Still, in Xarelto was held for need for possible thoracentesis. For now would like to avoid procedure, but agrees to hold anticoagulation to keep the option open so this can be revisited depending on his condition. (6) Aortic valve disease: The bioprosthetic valve at the aortic position appears to be ?well-seated.? ?Possibly moderate eccentric aortic regurgitation.? ?Severe low gradient aortic valve stenosis, based on the valve ?area. Will need follow-up after recovery from acute condition. (7) S/P AVR (aortic valve replacement): As above (8) Peripheral arterial disease: (9) 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 mellitus: (10) HTN (hypertension): (11) Congestive heart failure: Qualifiers: Heart failure chronicity: acute Heart failure type: diastolic Qualified Code(s): I50.31 - Acute diastolic (congestive) heart failure (12) Atrial fibrillation: Qualifiers: Atrial fibrillation type: longstanding persistent Qualified Code(s): I48.11 - Longstanding persistent atrial fibrillation (13) Bradycardia: Heart rates in the 50s. Carvedilol held entirely. In setting of EZEQUIEL. Plan Diarrhea: 3-4 liquid stools. Resolved. Negative C. difficile Hyperbilirubinemia: Resolved. No acute radiographic abnormality seen right upper quadrant. Currently no abdominal pain or GI symptoms. A. fib without RVR Status post TAVR History of peripheral vascular disease no acute exacerbation DM: Consistent carb cardiac diet. Moderate dose sliding scale Full code Attestations Medical Necessity Statement*: Continue admission for additional assessment of CHF in setting of EZEQUIEL, new decrease in EF, left ventricular dilation, new severe aortic stenosis status post bioprosthetic aortic valve replacement, aortic valve regurgitation. Coding Level of Care Code Acute Income Tax Administrator for [facility] Fwd Exam Comprehensive Diagnoses Acute respiratory failure with hypoxia J96.01 Diastolic congestive heart failure I50.30 Pneumonia J18.9 EZEQUIEL (acute kidney injury) N17.9 Parapneumonic effusion J18.9; J91.8 Aortic valve disease I35.9 S/P AVR (aortic valve replacement) Z95.2 Peripheral arterial disease I73.9 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 mellitus E11.42 HTN (hypertension) I10 Congestive heart failure I50.31 Heart failure chronicity: acute Heart failure type: diastolic Atrial fibrillation I48.11 Atrial fibrillation type: longstanding persistent Bradycardia R00.1
[2022-08-31 20:54] LABS: Glucose Point of Care 261 mg/dL (70-110)
[2022-08-31] MEDS: insulin glargine 100 units/1 mL 40 UNIT SUBCUT (21:27)
[2022-08-31] MEDS: duloxetine 60 mg Capsule PO (21:27)
[2022-08-31] MEDS: tamsulosin 0.4 mg Capsule 0.8 MG PO (21:27)
[2022-09-01] VITALS (8 sets, daily range): BP systolic 130–164; BP diastolic 58–71; PULSE 51–70; RESP 17–20; TEMP 36.4–36.9; O2SAT 93–98
--- NOTE | 2022-09-01 00:59 | PC.NURSE ---
UPON PATIENT ROUNDING, OXYGEN FOUND TO BE ON IV POLE. PATIENT EXPERIENCING EXPIRATORY WHEEZING, OXYGEN PLACED BACK ON PATIENT. PATIENT EDUCATED TO KEEP OXYGEN ON, REINFORCEMENT NEEDED.
[2022-09-01] MEDS: acetaminophen 500 mg Tablet PO (01:35)
[2022-09-01 05:24] LABS: Basophils % 0.8 %; Eosinophils # 0.1 10^3/uL (0.0-0.8); Eosinophils % 2.9 %; Hematocrit 41.4 % (42.0-52.0); Hemoglobin 13.4 g/dL (11.7-16.6); Lymphocytes # 0.9 10^3/uL (0.8-4.8); Lymphocytes % 18.2 %; Mean Corpuscular HGB Conc 32.4 g/dL (30.0-36.0); Mean Corpuscular Hemoglobin 30.9 pg (28.0-34.0); Mean Corpuscular Volume 95.6 fl (80-94); Mean Platelet Volume 10.8 fL (7.4-10.4); Monocytes # 0.6 10^3/uL (0.2-0.9); Monocytes % 11.9 %; Neutrophils # 3.14 10^3/uL (1.8-7.7); Nucleated Red Blood Cells % 0 %; Platelet Count 147 10^3/cmm (130-400); Red Blood Count 4.33 10^6/uL (4.1-5.3); Red Cell Distribution Width 14.6 % (12.1-15.1); White Blood Count 4.8 10^3/uL (4.0-10.0)
[2022-09-01 05:47] LABS: Troponin T (5th) Once 47 ng/L (0-15)
[2022-09-01 05:51] LABS: Alanine Aminotransferase 50 U/L (0-41); Albumin Level 3.7 g/dL (3.5-5.2); Alkaline Phosphatase 67 U/L (40-130); Aspartate Amino Transferase 47 U/L (0-40); Blood Urea Nitrogen 49 mg/dL (8-23); Calcium 8.9 mg/dL (8.5-10.5); Carbon Dioxide 24 mmol/L (22-29); Chloride 99 mmol/L (98-107); Globulin 2.5 g/dL (1.3-4.6); Glucose 83 mg/dL (65-115); NT Pro B Type Natriuretic Pept 8795 pg/mL (0-125); Osmolality Calculated 284 mOsm/kg (285-295); Sodium 131 mmol/L (136-145); Total Protein 6.2 g/dL (6.6-8.7)
[2022-09-01 05:54] LABS: Anion Gap 12.4 (5-19); Potassium 4.4 mmol/L (3.5-5.1)
[2022-09-01] MEDS: potassium chloride ER 20 mEq Tablet PO (06:00)
[2022-09-01 06:18] LABS: Glucose Point of Care 114 mg/dL (70-110)
[2022-09-01] MEDS: ipratropium-albuterol 3 mL Neb INHALATION (08:53)
[2022-09-01] MEDS: azithromycin 250 mg Tablet 500 MG PO (09:46)
[2022-09-01] MEDS: enoxaparin 30 mg/0.3 mL Syringe SUBCUT (09:46)
[2022-09-01] MEDS: cefTRIAXone 1,000 MG in sodium chloride 0.9% (plus) 50 ML 100 MG IV (09:47)
--- NOTE | 2022-09-01 10:15 | PM.PN ---
Subjective Medications: Medication Review Details: Current Medications Acetaminophen (Acetaminophen 500 Mg Tablet) 500 mg PO Q4H PRN PRN Reason: fever Last Admin: 09/01/22 01:35 Dose: 500 mg Albuterol/Ipratropium (Ipratropium-Albuterol 3 Ml Neb) 3 ml INHALATION Q6H PRN PRN Reason: SHORTNESS OF BREATH Last Admin: 08/29/22 09:14 Dose: 3 ml Albuterol/Ipratropium (Ipratropium-Albuterol 3 Ml Neb) 3 ml INHALATION Q6H.RESP JYOTI Last Admin: 09/01/22 08:53 Dose: 3 ml Azithromycin (Azithromycin 250 Mg Tablet) 500 mg PO DAILY JYOTI; Protocol Last Admin: 09/01/22 09:46 Dose: 500 mg Benzonatate (Benzonatate 100 Mg Capsule) 200 mg PO Q6H PRN PRN Reason: COUGH Carvedilol (Carvedilol 25 Mg Tablet) 3.125 mg PO BID [facility] Dextrose (Dextrose 50% Syringe 50 Ml) 25 ml IVP ONCE PRN; Protocol PRN Reason: hypoglycemia protocol Dextrose (Dextrose 50% Syringe 50 Ml) 50 ml IVP PRN PRN; Protocol PRN Reason: hypoglycemia protocol Diazepam (Diazepam 5 Mg Tablet) 5 mg PO DAILY PRN PRN Reason: SLEEP Last Admin: 08/31/22 21:27 Dose: 5 mg Duloxetine HCl (Duloxetine 60 Mg Capsule) 60 mg PO BEDTIME [facility] Last Admin: 08/31/22 21:27 Dose: 60 mg Enoxaparin Sodium (Enoxaparin 30 Mg/0.3 Ml Syringe) 30 mg SUBCUT Q24H JYOTI Last Admin: 09/01/22 09:46 Dose: 30 mg Furosemide (Furosemide 10 Mg/Ml Sdv 10ml) 60 mg IVP BID [facility] Last Admin: 08/29/22 08:18 Dose: 60 mg Glucagon (Glucagon 1 Mg/Ml Inj 1 Ml) 1 mg IM ONCE PRN; Protocol PRN Reason: Adult Acute Hypoglycemia Prot. Dextrose (D5w) 500 mls @ 100 mls/hr IV ONCE PRN; Protocol PRN Reason: Adult Acute Hypoglycemia Prot Ceftriaxone Sodium 1,000 mg/ (Sodium Chloride) 50 mls @ 100 mls/hr IV DAILY [facility]; Protocol Last Admin: 09/01/22 09:47 Dose: 100 mls/hr Insulin Glargine (Insulin Glargine 100 Units/1 Ml) 40 unit SUBCUT BEDTIME [facility] Last Admin: 08/31/22 21:27 Dose: 40 unit Insulin Human Lispro (Insulin Lispro 100 Unit/1 Ml) 0 unit SUBCUT TIDWM [facility]; Protocol Last Admin: 09/01/22 07:50 Dose: Not Given Ketoconazole (Ketoconazole Cream 15 Gm) 1 applic TOPICAL BID PRN PRN Reason: scaly areas on face Losartan Potassium (Losartan 50 Mg Tablet) 50 mg PO QAM [facility] Last Admin: 08/30/22 06:36 Dose: 50 mg Non-Formulary Medication (Brimonidine-Timolol [Combigan]) 1 drop EYE-BOTH BID [facility] Last Admin: 09/01/22 09:48 Dose: Not Given Ondansetron HCl (Ondansetron 2 Mg/Ml Sdv 2 Ml) 4 mg IVP Q6H PRN PRN Reason: NAUSEA AND VOMITING Last Admin: 08/29/22 00:33 Dose: 4 mg Potassium Chloride (Potassium Chloride Er 20 Meq Tablet) 20 meq PO QAM [facility] Last Admin: 09/01/22 06:00 Dose: 20 meq Senna/Docusate Sodium (Sennosides-Docusate Tablet) 1 tab PO DAILY [facility] Last Admin: 08/30/22 09:42 Dose: Not Given Tamsulosin HCl (Tamsulosin 0.4 Mg Capsule) 0.8 mg PO BEDTIME [facility] Last Admin: 08/31/22 21:27 Dose: 0.8 mg Vitals/I&O/Wt Last Vital Signs Temp 98.1 F 09/01/22 08:00 Pulse 58 L 09/01/22 08:55 Resp 18 09/01/22 08:55 BP 163/64 09/01/22 08:00 Pulse Ox 95 09/01/22 08:55 O2 Del Method 09/01/22 08:55 O2 Flow Rate 4 08/31/22 20:00 08/31/22 09/01/22 09/01/22 22:59 06:59 14:59 Intake Total 0 / 170 0 / 170 480 / 480 Balance 0 / -130 0 / -130 480 / 480 Physical Exam Narrative: GENERAL: The patient is alert and oriented times three. Not in any acute distress. HEENT: No significant pallor, icterus or lymphadenopathy.Oral cavity: There are no mucous membrane lesions. NECK: Trachea appears to be central. No masses noted. No JVD or thyromegaly appreciated. RESPIRATORY: Chest is symmetrical. No intercostals muscle retraction or any accessory muscle activation. There is no chest wall tenderness. Breath sounds are heard bilaterally. No rales or rhonchi heard. No evidence of any consolidation. BREASTS: Deferred. HEART: The heart sounds are normal. No S3 or S4. No significant murmurs. No pericardial rub ABDOMEN: No vessel pulsations or distention. No tenderness. No organomegaly appreciated. Bowel sounds are normally heard. : Deferred. RECTAL: Deferred. LYMPHATIC: No lymphadenopathy noted in the neck. EXTREMITIES: No edema or cyanosis. No clubbing. MUSCULOSKELETAL: No acute joint deformities or swelling SKIN: There are no significant rashes or ecchymosis NEUROPSYCHIATRIC: The patient is alert and oriented x3. Appears to be in a good mood. No tremors or rigidity noted. Data 09/01/22 05:13 09/01/22 05:13 Other Labs: Laboratory Last Values WBC 4.8 10^3/uL (4.0-10.0) 09/01/22 05:13 RBC 4.33 10^6/uL (4.1-5.3) 09/01/22 05:13 Hgb 13.4 g/dL (11.7-16.6) 09/01/22 05:13 Hct 41.4 % (42.0-52.0) L 09/01/22 05:13 MCV 95.6 fl (80-94) H 09/01/22 05:13 MCH 30.9 pg (28.0-34.0) 09/01/22 05:13 MCHC 32.4 g/dL (30.0-36.0) 09/01/22 05:13 RDW 14.6 % (12.1-15.1) 09/01/22 05:13 Plt Count 147 10^3/cmm (130-400) 09/01/22 05:13 MPV 10.8 fL (7.4-10.4) H 09/01/22 05:13 Neut % (Auto) 66.0 % 09/01/22 05:13 Lymph % (Auto) 18.2 % 09/01/22 05:13 Tama % (Auto) 11.9 % 09/01/22 05:13 Eos % (Auto) 2.9 % 09/01/22 05:13 Baso % (Auto) 0.8 % 09/01/22 05:13 Neut # (Auto) 3.14 10^3/uL (1.8-7.7) 09/01/22 05:13 Lymph # (Auto) 0.9 10^3/uL (0.8-4.8) 09/01/22 05:13 Tama # (Auto) 0.6 10^3/uL (0.2-0.9) 09/01/22 05:13 Eos # (Auto) 0.1 10^3/uL (0.0-0.8) 09/01/22 05:13 Baso # (Auto) 0.0 10^3/uL (0.0-0.1) 09/01/22 05:13 Nucleated RBC % (auto) 0 % 09/01/22 05:13 Nucleated RBCs # 0.0 /100WBC 09/01/22 05:13 Sodium 131 mmol/L (136-145) L 09/01/22 05:13 Potassium 4.4 mmol/L (3.5-5.1) 09/01/22 05:13 Chloride 99 mmol/L (98-107) 09/01/22 05:13 Carbon Dioxide 24 mmol/L (22-29) 09/01/22 05:13 Anion Gap 12.4 (5-19) 09/01/22 05:13 BUN 49 mg/dL (8-23) H 09/01/22 05:13 Creatinine 1.3 mg/dL (0.7-1.2) H 09/01/22 05:13 GFR Calculation Not Reportable 09/01/22 05:13 Glucose 83 mg/dL (65-115) 09/01/22 05:13 POC Glucose 114 mg/dL (70-110) H 09/01/22 06:04 Calculated Osmolality 284 mOsm/kg (285-295) L 09/01/22 05:13 Lactic Acid 1.5 mmol/L (0.5-2.2) 08/27/22 18:38 Calcium 8.9 mg/dL (8.5-10.5) 09/01/22 05:13 Phosphorus 3.7 mg/dL (2.5-4.5) 08/28/22 04:37 Magnesium 2.1 mg/dL (1.7-2.3) 08/28/22 04:37 Total Bilirubin 1.0 mg/dL (0.15-1.2) 09/01/22 05:13 AST 47 U/L (0-40) H 09/01/22 05:13 ALT 50 U/L (0-41) H 09/01/22 05:13 Alkaline Phosphatase 67 U/L (40-130) 09/01/22 05:13 Troponin T Gen 5 ng/L 47 ng/L (0-15) H 09/01/22 05:13 C-Reactive Protein 31.7 mg/L (0.0-4.9) H 08/28/22 04:37 NT-Pro-B Natriuret Pep 8795 pg/mL (0-125) H 09/01/22 05:13 Total Protein 6.2 g/dL (6.6-8.7) L 09/01/22 05:13 Albumin 3.7 g/dL (3.5-5.2) 09/01/22 05:13 Globulin 2.5 g/dL (1.3-4.6) 09/01/22 05:13 Procalcitonin 0.07 ng/mL (0-0.5) 08/27/22 17:00 Nasal Influ A H1 2008 PCR Detected (NOT DETECT) A 08/28/22 20:40 Adenovirus (PCR) Not detected (NOT DETECT) 08/28/22 20:40 C. pneumoniae DNA (PCR) Not detected (NOT DETECT) 08/28/22 20:40 Coronavirus 229E (PCR) Not detected (NOT DETECT) 08/28/22 20:40 Human Metapneumovir PCR Not detected (NOT DETECT) 08/28/22 20:40 Influenza A (H1) PCR Not detected (NOT DETECT) 08/28/22 20:40 Influenza A (H3) PCR Not detected (NOT DETECT) 08/28/22 20:40 Influenza Type A Ag negative (Negative) 08/27/22 17:25 Influenza Type A (PCR) Detected (NOT DETECT) A 08/28/22 20:40 Influenza Type B Ag negative (Negative) 08/27/22 17:25 Influenza Type B (PCR) Not detected (NOT DETECT) 08/28/22 20:40 M. pneumoniae (PCR) Not detected (NOT DETECT) 08/28/22 20:40 Parainfluenza 1 (PCR) Not detected (NOT DETECT) 08/28/22 20:40 Parainfluenza 2 (PCR) Not detected (NOT DETECT) 08/28/22 20:40 Parainfluenza 3 (PCR) Not detected (NOT DETECT) 08/28/22 20:40 Parainfluenza 4 (PCR) Not detected (NOT DETECT) 08/28/22 20:40 RSV Type A (PCR) Not detected (NOT DETECT) 08/28/22 20:40 RSV Type B (PCR) Not detected (NOT DETECT) 08/28/22 20:40 Entero/Rhino (PCR) Not detected (NOT DETECT) 08/28/22 20:40 SARS-CoV-2 (PCR) Not detected (NOT DETECT) 08/28/22 20:40 SARS-CoV-2 Ag (Rapid) negative (Negative) 08/27/22 17:25 Micro: Microbiology 08/28/22 13:34 Gram Stain - Final Sputum - Expectorated Sputum Sputum Culture - Final A&P Assessment and plan (1) Cardiomyopathy: The etiology of the LV dysfunction is not clear at this time. Possibility of atrial fibrillation causing LV dysfunction is a consideration. In view of the patient's multiple risk factors, coronary artery disease causing LV dysfunction and heart failure also is a consideration. For further evaluation of the coronary status, a Myocardial perfusion imaging would be appropriate. Patient apparently has no chest pain at this time. (2) Aortic valve disease: Patient has features of a severe low gradient aortic valve stenosis. This needs to be further evaluated. Patient may benefit from a transesophageal echocardiogram and possible cardiac catheterization to further evaluate his cardiovascular status. (3) Congestive heart failure: Patient's heart failure is compensated. We may go ahead and do a repeat BMP to see the trend. Patient may be carefully treated with diuretics. The stress of pneumonia and arrhythmia may be playing a role. Ischemia also could be a contributing factor. Troponin T and the BNP were reviewed. We may give IV Lasix, 60 mg now Qualifiers: Heart failure chronicity: acute Heart failure type: diastolic Qualified Code(s): I50.31 - Acute diastolic (congestive) heart failure (4) Diastolic congestive heart failure: Few fine Rales at the bases. (5) Peripheral arterial disease: Patient is status post MANAGER [employer]IVITIES of the tibioperoneal disease last year. Currently is asymptomatic. May currently on the current medications. (6) HTN (hypertension): Normotensive. Continue on the current medications. Plan Patient may benefit from a Myocardial perfusion imaging, to further evaluate the coronary status. We will try to do it as early as possible. This may be scheduled for tomorrow Attestations Medical Necessity Statement*: Patient requires continued hospital stay for close monitoring and further management Coding Level of Care Code Acute [employer] for [facility] Fwd Medical Decision Making Moderate Complexity Diagnoses Cardiomyopathy I42.9 Aortic valve disease I35.9 Congestive heart failure I50.31 Heart failure chronicity: acute Heart failure type: diastolic Diastolic congestive heart failure I50.30 Peripheral arterial disease I73.9 HTN (hypertension) I10
[2022-09-01] MEDS: FUROsemide 10 mg/mL SDV 10mL 60 MG IVP (10:45)
[2022-09-01 11:18] LABS: Glucose Point of Care 120 mg/dL (70-110)
--- NOTE | 2022-09-01 12:32 | P.DS_ITS ---
Discharge Providers Date of Admission: 08/28/22 16:00 Date of Discharge: September 01, 2022 Attending Provider at Admission: Rito Cage MD Attending Provider at Discharge: Carlton Simpson MD Primary Care Provider: Chon Bradshaw DO Diagnoses at Discharge Discharge Diagnosis (1) Cardiomyopathy: Status: Acute (2) Aortic valve disease: Status: Acute (3) Congestive heart failure: Status: Acute Qualifiers: Heart failure chronicity: acute Heart failure type: diastolic Qualified Code(s): I50.31 - Acute diastolic (congestive) heart failure (4) Diastolic congestive heart failure: Status: Acute (5) Peripheral arterial disease: Status: Acute (6) HTN (hypertension): Status: Acute Reason for Visit Reason for Visit: SOB/ ABDOMINAL DISTENTION Brief History: Surendra Roland is a 72 year old male presented to hospital for worsening shortness of breath.? Patient is stating that since he has been experiencing orthopnea, PND, weight gain and shortness of breath.? He has not noticed any chest pain, he has not noticed any fever, nausea, vomiting or diarrhea but has been noticing productive cough greenish sputum production.? Patient is stating that he was told by the assembling fabricator to take extra dose of Lasix in case there is more than 2 pounds of weight gain he has gained more than 10 pounds in the last few days.? He does not use oxygen at home. In the ER he is febrile, no leukocytosis or signs of sepsis Bilateral pleural effusion right greater than left negative for PE, He febrile temperature 100.8 abnormal bilirubin level likely heart failure related, patient does not have a gallbladder At the time of my evaluation he is requiring 3 to 4 L of oxygen which is a new requirement Hospital Course Hospital Course Patient was admitted to hospital further evaluation and management. He was admitted for hypoxia secondary to a combination of congestive heart failure and viral bronchitis. His viral panel came back positive for flu A. He was treated conservatively. He responded well to the treatment and is back to his baseline oxygen supplementation for last 48 hours. His hospitalization was complicated by patient developing acute kidney injury secondary to a aggressive diuresis which resolved by managing fluid balance. Echocardiogram was done which was consistent with a well-seated bioprosthetic valve, moderate AI, severe low gradient aortic valve stenosis with an EF of 47%. There was a concern for new low EF hence cardiology was consulted. During hospitalization he was found to have a recurrent fasting low blood sugars for which his home dose of Lantus was adjusted. He was also found to have borderline low blood pressure for which his home dose of Coreg was withheld and changed to 3.125 mg twice daily. He was discharged hemodynamically stable condition with advised to follow-up with cardiology as an outpatient after Lexiscan stress test. Physical Exam Narrative: Sitting up in chair. He appears to be more comfortable. Very hard of hearing. Const: COMMON NORMALS: patient oriented x3 and alert GENERAL APPEARANCE: cooperative ORIENTATION/CONSCIOUSNESS: Yes awake HENMT: COMMON NORMALS: oropharynx normal Neck/C-Spine: COMMON NORMALS: no JVD Resp: COMMON NORMALS: normal respiratory effort AUSCULTATION: no rhonchi ( Fainter/fewer), wheezes and diminished lung sounds Cardio: COMMON NORMALS: no JVD, regular rhythm, S1 normal heart sound present, S2 normal heart sound present and No murmurs present (Cardio) RHYTHM: regular rhythm HEART SOUNDS: S1 normal heart sound present and S2 normal heart sound present GI: COMMON NORMALS: Normal to inspection, nondistended, normoactive bowel sounds present, Soft to palpation and non-tender PALPATION: Yes Soft to palpation Extremity: COMMON NORMALS: no joint enlargement GENERAL: Yes edema (1+) Neuro: COMMON NORMALS: patient oriented x3 and moves all extremities SENSORIUM/ORIENTATION: Yes alert Skin: COMMON NORMALS: no rashes or lesions noted GENERAL SKIN EXAM: no rashes or lesions noted Discharge Data Studies Completed and Pending Completed Studies During Hospitalization Category Date Time Status CT angio chest w abd pel w con Stat Cat Scan 08/27/22 18:21 Completed XR chest 1V portable [id number] Routine Exams 08/31/22 06:00 Completed XR chest 1V portable [id number] Stat Exams 08/27/22 17:07 Completed CV. echo complete* [id number] Routine Ultrasound 08/29/22 16:06 Completed US gall bladder [id number] Stat Ultrasound 08/27/22 18:21 Completed Pending at discharge Category Date Time Status Cardiac Stress Test MIBI [Sestamibi Stress Test Request Exams 09/01/22 10:47 Ordered ] Routine Blood Culture Stat Lab 08/27/22 18:38 Results Complete Blood Count w/Auto AM LABS Lab 09/02/22 04:00 Ordered Complete Blood Count w/Auto AM LABS Lab 09/03/22 04:00 Ordered Comprehensive Metabolic Panel AM LABS Lab 09/02/22 04:00 Ordered Comprehensive Metabolic Panel AM LABS Lab 09/03/22 04:00 Ordered NM mitra perf SPECT r/s* [id number] Routine Nuc Med 09/01/22 10:47 Ordered Radiology Impressions Chest/Abdomen/Pelvis CT 08/27/22 18:21 IMPRESSION: 1. Negative for pulmonary embolism. 2. Moderate volume right and small volume left pleural effusions. Interlobular septal thickening suggestive of interstitial pulmonary edema. IMPRESSION: No acute findings. Gallbladder Ultrasound 08/27/22 18:21 IMPRESSION: 1. No acute sonographic abnormalities of the right upper abdomen. 2. Right pleural effusion present. Chest X-Ray 08/31/22 06:00 IMPRESSION: 1. Mildly prominent cardiac silhouette, mild prominence and indistinctness of the pulmonary vasculature, mild peribronchial cuffing and increased interstitial opacities in the mid lower hemithoraces bilaterally, findings suggesting pulmonary edema. Echocardiogram: CONCLUSIONS ?The bioprosthetic valve at the aortic position appears to be?well-seated.? ?Possibly moderate eccentric aortic regurgitation.? ?Severe low gradient aortic valve stenosis, based on the valve?area. ?Mildly dilated left ventricle.? Diffuse hypokinesia of the left?ventricle with ejection fraction 47% Thickened mitral valve.? Moderate mitral annular calcification. ?Mild-moderate mitral valve regurgitation. ?Mildly increased left atrial size. ?Trace to mild tricuspid valve regurgitation. ?Estimated pulmonary artery peak systolic pressure 41 mmHg ?There is no pericardial effusion. ?There are no intracardiac masses. ?Compared to the study from 07/05/2020, the drop in the LV?ejection fraction and the wall motion normalities appears to be?new ?Dr Nelson Garcia MD [facility] ?(Electronically Signed) ?Final Date:? ? ? 30 August 2022 ? 00:22 Laboratory Results WBC 4.8 10^3/uL (4.0-10.0) 09/01/22 05:13 RBC 4.33 10^6/uL (4.1-5.3) 09/01/22 05:13 Hgb 13.4 g/dL (11.7-16.6) 09/01/22 05:13 Hct 41.4 % (42.0-52.0) L 09/01/22 05:13 MCV 95.6 fl (80-94) H 09/01/22 05:13 MCH 30.9 pg (28.0-34.0) 09/01/22 05:13 MCHC 32.4 g/dL (30.0-36.0) 09/01/22 05:13 RDW 14.6 % (12.1-15.1) 09/01/22 05:13 Plt Count 147 10^3/cmm (130-400) 09/01/22 05:13 MPV 10.8 fL (7.4-10.4) H 09/01/22 05:13 Neut % (Auto) 66.0 % 09/01/22 05:13 Lymph % (Auto) 18.2 % 09/01/22 05:13 [place] % (Auto) 11.9 % 09/01/22 05:13 Eos % (Auto) 2.9 % 09/01/22 05:13 Baso % (Auto) 0.8 % 09/01/22 05:13 Neut # (Auto) 3.14 10^3/uL (1.8-7.7) 09/01/22 05:13 Lymph # (Auto) 0.9 10^3/uL (0.8-4.8) 09/01/22 05:13 [place] # (Auto) 0.6 10^3/uL (0.2-0.9) 09/01/22 05:13 Eos # (Auto) 0.1 10^3/uL (0.0-0.8) 09/01/22 05:13 Baso # (Auto) 0.0 10^3/uL (0.0-0.1) 09/01/22 05:13 Nucleated RBC % (auto) 0 % 09/01/22 05:13 Nucleated RBCs # 0.0 /100WBC 09/01/22 05:13 Sodium 131 mmol/L (136-145) L 09/01/22 05:13 Potassium 4.4 mmol/L (3.5-5.1) 09/01/22 05:13 Chloride 99 mmol/L (98-107) 09/01/22 05:13 Carbon Dioxide 24 mmol/L (22-29) 09/01/22 05:13 Anion Gap 12.4 (5-19) 09/01/22 05:13 BUN 49 mg/dL (8-23) H 09/01/22 05:13 Creatinine 1.3 mg/dL (0.7-1.2) H 09/01/22 05:13 GFR Calculation Not Reportable 09/01/22 05:13 Glucose 83 mg/dL (65-115) 09/01/22 05:13 POC Glucose 120 mg/dL (70-110) H 09/01/22 11:13 Calculated Osmolality 284 mOsm/kg (285-295) L 09/01/22 05:13 Lactic Acid 1.5 mmol/L (0.5-2.2) 08/27/22 18:38 Calcium 8.9 mg/dL (8.5-10.5) 09/01/22 05:13 Phosphorus 3.7 mg/dL (2.5-4.5) 08/28/22 04:37 Magnesium 2.1 mg/dL (1.7-2.3) 08/28/22 04:37 Total Bilirubin 1.0 mg/dL (0.15-1.2) 09/01/22 05:13 AST 47 U/L (0-40) H 09/01/22 05:13 ALT 50 U/L (0-41) H 09/01/22 05:13 Alkaline Phosphatase 67 U/L (40-130) 09/01/22 05:13 Troponin T Gen 5 ng/L 47 ng/L (0-15) H 09/01/22 05:13 C-Reactive Protein 31.7 mg/L (0.0-4.9) H 08/28/22 04:37 NT-Pro-B Natriuret Pep 8795 pg/mL (0-125) H 09/01/22 05:13 Total Protein 6.2 g/dL (6.6-8.7) L 09/01/22 05:13 Albumin 3.7 g/dL (3.5-5.2) 09/01/22 05:13 Globulin 2.5 g/dL (1.3-4.6) 09/01/22 05:13 Procalcitonin 0.07 ng/mL (0-0.5) 08/27/22 17:00 Nasal Influ A H1 2009 PCR Detected (NOT DETECT) A 08/28/22 20:40 Adenovirus (PCR) Not detected (NOT DETECT) 08/28/22 20:40 C. pneumoniae DNA (PCR) Not detected (NOT DETECT) 08/28/22 20:40 Coronavirus 229E (PCR) Not detected (NOT DETECT) 08/28/22 20:40 Human Metapneumovir PCR Not detected (NOT DETECT) 08/28/22 20:40 Influenza A (H1) PCR Not detected (NOT DETECT) 08/28/22 20:40 Influenza A (H3) PCR Not detected (NOT DETECT) 08/28/22 20:40 Influenza Type A Ag negative (Negative) 08/27/22 17:25 Influenza Type A (PCR) Detected (NOT DETECT) A 08/28/22 20:40 Influenza Type B Ag negative (Negative) 08/27/22 17:25 Influenza Type B (PCR) Not detected (NOT DETECT) 08/28/22 20:40 M. pneumoniae (PCR) Not detected (NOT DETECT) 08/28/22 20:40 Parainfluenza 1 (PCR) Not detected (NOT DETECT) 08/28/22 20:40 Parainfluenza 2 (PCR) Not detected (NOT DETECT) 08/28/22 20:40 Parainfluenza 3 (PCR) Not detected (NOT DETECT) 08/28/22 20:40 Parainfluenza 4 (PCR) Not detected (NOT DETECT) 08/28/22 20:40 RSV Type A (PCR) Not detected (NOT DETECT) 08/28/22 20:40 RSV Type B (PCR) Not detected (NOT DETECT) 08/28/22 20:40 Entero/Rhino (PCR) Not detected (NOT DETECT) 08/28/22 20:40 SARS-CoV-2 (PCR) Not detected (NOT DETECT) 08/28/22 20:40 SARS-CoV-2 Ag (Rapid) negative (Negative) 08/27/22 17:25 Vitals Last Vital Signs Temp 98.0 F 09/01/22 11:20 Pulse 58 L 09/01/22 11:20 Resp 17 09/01/22 11:20 BP 164/65 09/01/22 11:20 Pulse Ox 98 09/01/22 11:20 O2 Del Method 09/01/22 11:20 O2 Flow Rate 4 08/31/22 20:00 Discharge Plan Discharge Patient Disposition: Home Condition: Stable Prescriptions: New Coreg 3.125 mg tablet 3.125 mg PO BID Qty: 60 0RF Rx Instructions: must administer with a meal/food azithromycin 250 mg Tablet 500 mg PO DAILY Qty: 3 0RF benzonatate 100 mg Capsule 200 mg PO Q6H PRN (Reason: Cough) Qty: 14 0RF Continued duloxetine [Cymbalta] 60 mg capsule,delayed release(DR/EC) 60 mg PO BEDTIME tamsulosin [Flomax] 0.4 mg capsule 0.8 mg PO BEDTIME (DME) FreeStyle Marisela 14 Day Sensor Kit See Rx Instructions .ROUTE .MEDSUPPLY Qty: 1 Rx Instructions: As directed cholecalciferol (vitamin D3) 25 mcg (1,000 unit) capsule 25 mcg PO DAILY losartan 50 mg tablet 50 mg PO QAM (DME) Diabetic shoes with inserts See Rx Instructions .Route .MEDSUPPLY Qty: 1 0RF Rx Instructions: As directed by HOME potassium chloride 20 mEq tablet extended release 20 meq PO QAM Qty: 90 3RF Xarelto 20 mg tablet 20 mg PO QPM Qty: 90 3RF Rx Instructions: must administer with evening meal furosemide 40 mg tablet 40 mg PO BID Qty: 90 3RF Rx Instructions: take an additional 40 mg PRN edema multivitamin Tablet 1 tab PO QAM Jardiance 25 mg tablet 25 mg PO QAM insulin aspart U-100 [Novolog PenFill U-100 Insulin] 100 unit/mL cartridge 15 - 25 unit SUBCUT AC zinc acetate 50 mg (zinc) Capsule 50 mg PO DAILY ketoconazole 2 % cream 1 applic TOPICAL BID PRN (Reason: scaly areas on face) Combigan 0.2-0.5 % drops 1 drp ophthalmic (eye) BID Changed Tresiba FlexTouch U-200 200 unit/mL (3 mL) insulin pen 30 unit SUBCUT BEDTIME Qty: 3 0RF Discontinued carvedilol 25 mg tablet 25 mg PO BID Qty: 180 3RF Rx Instructions: must administer with a meal/food Discharge Orders: Discharge Order (Routine); Ordered 09/01/22 Ordered By: Carlton Tatiana Other Ambulatory Orders: Sestamibi Stress Test Request (Routine) Timeframe: 1 Week Facility: [facility] - Location: Card[facility] Diagnostic Laboratory Ordered By: Carlton Simpson Referrals: Chon Bradshaw DO [Primary Care Provider] - 09/10/22 11:15 am Ama Garcia FNP [Nurse Practitioner] - 2 weeks Discharge Diet: Cardiac and Diabetic Discharge Activity: Resume usual activity and Increase activity as tolerated Patient Instructions: Benzonatate (By mouth), Azithromycin (By mouth), Influenza (GEN), Pneumonia (IP), Opioid Safety, Pneumonia Stoplight Activity Restrictions/Additional Instructions: Few medication changes has been done. Coreg has been changed to 3.125 mg twice daily. Lantus dose has been changed to 30 units nightly. Please follow-up with cardiology as advised. Please follow-up with cardiology services for Lexiscan stress test. Discharge Attestations Time Spent in Discharge Care*: greater than 30 min Specific Discharge Activities: educating patient, discussing with pcp/other providers, discussing with case management associate/social workers/dc planners, documenting/other paperwork and evaluating patient/reviewing data Status at Discharge: Cognitive status at discharge: cognitively intact , Behavioral status at discharge: cooperative , Functional status at discharge: independent ambulation , Overall status at discharge: patient is back to baseline Quality Metrics Clinical Quality Measures [ No reported AMI, CVA or VTE this stay] Coding Level of Care Code Acute Chg FW DC note Exam Comprehensive Diagnoses Cardiomyopathy I42.9 Aortic valve disease I35.9 Congestive heart failure I50.31 Heart failure chronicity: acute Heart failure type: diastolic Diastolic congestive heart failure I50.30 Peripheral arterial disease I73.9 HTN (hypertension) I10
== END 2022-09-01 14:07 | disposition home or self-care (01) | DRG 291 ==
LOC: ER 20:39 → MEDSURG 20:55
PROVIDERS: Internal Medicine; Admitting Provider Internal Medicine; Emergency Provider Emergency Medicine; PCP Internal Medicine; Visit Provider Student in an Organized Health Care Education/Training Program
DX: I11.0 Hypertensive heart disease with heart failure (principal); I50.33 Acute on chronic diastolic (congestive) heart failure; J96.01 Acute respiratory failure with hypoxia; I48.11 Longstanding persistent atrial fibrillation; N17.9 Acute kidney failure, unspecified; J10.1 Influenza due to other identified influenza virus with other respiratory manifestations; J20.8 Acute bronchitis due to other specified organisms; N40.0 Benign prostatic hyperplasia without lower urinary tract symptoms; E11.51 Type 2 diabetes mellitus with diabetic peripheral angiopathy without gangrene; E11.42 Type 2 diabetes mellitus with diabetic polyneuropathy; E78.5 Hyperlipidemia, unspecified; Z85.828 Personal history of other malignant neoplasm of skin; I25.2 Old myocardial infarction; Z86.73 Personal history of transient ischemic attack (TIA), and cerebral infarction without residual deficits; Z95.3 Presence of xenogenic heart valve; Z87.891 Personal history of nicotine dependence; I35.1 Nonrheumatic aortic (valve) insufficiency; Z79.4 Long term (current) use of insulin; Z79.01 Long term (current) use of anticoagulants; I42.9 Cardiomyopathy, unspecified; Z89.421 Acquired absence of other right toe(s)
CPT/HCPCS: 36415; 36416; 71045; 71275; 74177; 76705; 80053; 82962; 83605; 83735; 83880; 84100; 84145; 84484; 85025; 86140; 86403; 87040; 87070; 87205; 87426; 87449; 87486; 87493; 87581; 87633; 87641; 87804; 93005; 93306; 94640; 94664; 96365; 96367; 96372; 97116; 97161; 99285; G0378; J0696; J1650; J1815; J1940; J2405; J3490; P9047; Q0144; Q9967

== ENCOUNTER → 2022-09-05 15:26 | Outpatient (BNVA) | payer MEDICARE, SELFPAY | PROVIDERS: PCP Internal Medicine; Visit Provider Internal Medicine | DX: I35.9 Nonrheumatic aortic valve disorder, unspecified (principal); I42.9 Cardiomyopathy, unspecified; I73.9 Peripheral vascular disease, unspecified; E78.5 Hyperlipidemia, unspecified; Z87.891 Personal history of nicotine dependence | CPT/HCPCS: 99214 ==

== ENCOUNTER 2022-10-12 10:42 | Day surgery (SDC) | payer MEDICARE, SELFPAY ==
[2022-09-25 10:54] VITALS: BMI 32.3
[2022-10-12] MEDS: sodium chloride 0.9% 1,000 ML 30 ML IV (11:12)
--- NOTE | 2022-10-12 11:15 | USCV_ITS ---
Surendra Roland Age: 72 Gender: M : 1950 Exam Date: 10/12/2022 12:23 Ordering Phys: Jaime Moore M.D ([email or web address]) Technologist: HARJINDER Exam Location: [facility] [place] Indication: valve replacement BP: / HR: Rhythm: Sinus Technical Quality: Adequate MEASUREMENTS (Male / Female) Normal Values Medications Complications None Proc. Components After anesthesia team administered anesthesia, we proceeded with probe intubation FINDINGS Left Ventricle Left ventricle is normal size. LV systolic function is normal. Right Ventricle Normal in size and function Right Atrium Grossly normal Left Atrium Grossly normal LA Appendage Normal. No left atrial appendage thrombus seen. IA Septum Appears to be normal Mitral Valve Mild mitral annular calcification is seen. Mild mitral regurgitation. Aortic Valve Bioprosthetic aortic valve is seen. It is thickened. Appears to open well. By planimetry aortic valve area is 2 cm. Mild aortic regurgitation is seen. No evidence of severe aortic stenosis Tricuspid Valve Structurally normal tricuspid valve Pulmonic Valve Grossly normal Pericardium Normal Aorta Mild atherosclerotic plaque CONCLUSIONS Ventricle is normal in size. LV systolic function is normal. Mild mitral regurgitation Bioprosthetic aortic valve is seen. It is thickened. Appears to open well. By planimetry, aortic valve area is 2 cm squared. No evidence of severe aortic stenosis. Mild aortic regurgitation. Jaime Moore MD (Electronically Signed) Final Date: 12 October 2022 13:14 S
[2022-10-12 11:22] VITALS: BP 118/66; PULSE 54; RESP 18; TEMP 36.1; O2SAT 91
[2022-10-12 11:29] LABS: Glucose Point of Care 88 mg/dL (70-110)
--- NOTE | 2022-10-12 12:10 | P.HP_ITS ---
Same Day Surgery H&P Indication for Procedure/HPI DATE OF PROCEDURE: October 12, 2022 CHIEF COMPLAINT/INDICATIONFOR SURGICAL PROCEDURE: Aortic stenosis/ aortic regurgitation PREOP DIAGNOSIS: Aortic stenosis/ aortic regurgitation PLANNED PROCEDURE: Operation Date: 10/12/22 12:00 Proposed Procedures p DAGMAR 06309,I35.0(Not Applicable) - Jaime Moore M.D 72-year-old man with past medical history of hypertension,Atrial fibrillation on Xarelto,History of bioprosthetic aortic valve replacement in 2011. He has been having worsening shortness of breath. Recent echocardiogram showed mildly reduced LV systolic function with possible low-flow low gradient significant aortic stenosis andAortic regurgitation. Plan for transesophageal echocardiogram to assess it better as Transthoracic echo was of limited quality. Medications/Allergies* Home Medications Medication Instructions Recorded Confirmed Type duloxetine 60 mg capsule,delayed 60 mg PO BEDTIME 02/22/20 10/10/22 History release (Cymbalta) tamsulosin 0.4 mg capsule (Flomax) 0.8 mg PO BEDTIME 02/22/20 10/10/22 History empagliflozin 25 mg tablet 25 mg PO QAM 05/06/21 10/10/22 History (Jardiance) multivitamin 1 tab PO QAM 05/06/21 10/10/22 History cholecalciferol (vitamin D3) 25 25 mcg PO DAILY 08/01/21 10/10/22 History mcg (1,000 unit) capsule flash glucose sensor (FreeStyle #1 ea 05/01/22 09/25/22 History Marisela 14 Day Sensor kit) insulin aspart U-100 100 unit/mL 15 - 25 unit SUBCUT AC 05/30/22 10/10/22 History subcutaneous cartridge (Novolog PenFill U-100 Insulin aspart) losartan 50 mg tablet 50 mg PO QAM 05/30/22 10/10/22 History brimonidine 0.2 %-timolol 0.5 % 1 drp ophthalmic (eye) BID 08/27/22 10/10/22 History eye drops (Combigan) ketoconazole 2 % topical cream 1 applic topical BID PRN scaly 08/27/22 10/10/22 History areas on face zinc acetate 50 mg (zinc) capsule 50 mg PO DAILY 08/27/22 10/10/22 History Allergies/Adverse Reactions Allergy/AdvReac Type Severity Reaction Status Date / Time No Known Allergies Allergy Verified 10/12/22 11:05 Current Medications: Generic Name Dose Route Start Last Admin Trade Name Khadijah PRN Reason Stop Dose Admin Sodium Chloride 1,000 mls @ 30 mls/hr 10/12/22 11:15 10/12/22 11:12 Sodium Chloride 0.9% IV 10/13/22 11:14 30 mls/hr .Q24H JYOTI Administration Pertinent History/Comorbid Conditions* Medical History (Updated 09/02/22 @ 00:01 by JEREMI Granados) Acute hypokalemia Anticoagulation adequate with anticoagulant therapy Xarelto Atrial fibrillation Paroxysmal Benign prostatic hyperplasia Chronic anticoagulation Xarelto Congestive heart failure Diabetes 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 mellitus Dyslipidemia Gangrene History of nonmelanoma skin cancer HTN (hypertension) Hypertensive urgency MSSA (methicillin susceptible Staphylococcus aureus) infection NSTEMI (non-ST elevated myocardial infarction) Obesity Osteomyelitis of toe of left foot Peripheral arterial disease PVD (peripheral vascular disease) 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 on 07/21/2021 TIA (transient ischemic attack) Varicose vein of leg Surgical History (Updated 09/02/22 @ 00:01 by JEREMI Granados) S/P AVR (aortic valve replacement) Bioprosthetic, bovine S/P cataract extraction S/P cholecystectomy Family History (Updated 02/23/20 @ 15:49 by Maria Luz Pagan RN) Diabetes Father Grandfather PATERNAL Hypertension Father Grandfather PATERNAL Social History Smoking and tobacco status: former smoker Alcohol intake: former Marital status: / service: No Current occupational status: retired Current occupation: retired from [employer] Pertinent Exam Findings alert, oriented x 3, clear to auscultation bilaterally and regular rate & rhythm Recommendations Surgery/Procedure today (Transesophageal echocardiogram) Coding Level of Care Code Acute District Or District Office Director for Era Hung
--- NOTE | 2022-10-12 12:31 | P.ANESASSM_ITS ---
Pre-Anesthetic Assessment Height/Weight: Height 1.78 m Weight 102.058 kg Temp Pulse Resp BP Pulse Ox O2 Del Method 97.0 F L 54 L 18 118/66 91 10/12/22 11:22 10/12/22 11:22 10/12/22 11:22 10/12/22 11:22 10/12/22 11:22 10/12/22 11:22 Preop Diagnosis: Aortic stenosis/ aortic regurgitation Operation Date: 10/12/22 12:00 Proposed Procedures p DAGMAR 03754,I35.0(Not Applicable) - Jaime Moore M.D Familial anesthetic complications: none Was Beta Nell taken within 24 hours: Yes Was Clonidine taken within 24 hours: N/A Last intake: Intake Last Liquid Date 10/11/22 Last Liquid Time 19:00 Last Solid Date 10/11/22 Last Solid Time 17:00 Social No alcohol and No tobacco Exam alert, oriented x 3 and clear to auscultation bilaterally CV/HEM Atrial Fibrillation, Congestive Heart Failure, Hypertension and Peripheral Vascular Disease 08/29/22 ECHO CONCLUSIONS ?The bioprosthetic valve at the aortic position appears to be ?well-seated.? ?Possibly moderate eccentric aortic regurgitation.? ?Severe low gradient aortic valve stenosis, based on the valve ?area. ?Mildly dilated left ventricle.? Diffuse hypokinesia of the left ?ventricle with ejection fraction 47% Chronic Renal Insufficiency Metabolic Diabetes Mellitus, Hyperlipidemia and Morbid Obesity Anesthetic Plan ASA status: 3 Anesthesia: MAC Medications/Allergies Home Medications Medication Instructions Recorded Confirmed Last Taken Type duloxetine 60 mg capsule,delayed 60 mg PO BEDTIME 02/22/20 10/10/22 10/11/22 History release (Cymbalta) tamsulosin 0.4 mg capsule (Flomax) 0.8 mg PO BEDTIME 02/22/20 10/10/22 10/11/22 History empagliflozin 25 mg tablet 25 mg PO QAM 05/06/21 10/10/22 10/11/22 History (Jardiance) multivitamin 1 tab PO QAM 05/06/21 10/10/22 10/11/22 History potassium chloride 20 mEq 20 meq PO QAM #90 tabs 06/30/21 10/10/22 10/11/22 Rx tablet,extended release cholecalciferol (vitamin D3) 25 25 mcg PO DAILY 08/01/21 10/10/22 10/11/22 History mcg (1,000 unit) capsule rivaroxaban 20 mg tablet (Xarelto) 20 mg PO QPM #90 tabs 12/01/21 10/10/22 10/11/22 Rx flash glucose sensor (FreeStyle #1 ea 05/01/22 09/25/22 10/11/22 History Marisela 14 Day Sensor kit) insulin aspart U-100 100 unit/mL 15 - 25 unit SUBCUT AC 05/30/22 10/10/22 10/11/22 History subcutaneous cartridge (Novolog PenFill U-100 Insulin aspart) losartan 50 mg tablet 50 mg PO QAM 05/30/22 10/10/22 10/11/22 History Diabetic shoes with inserts #1 ea 08/22/22 09/25/22 10/11/22 Rx brimonidine 0.2 %-timolol 0.5 % 1 drp ophthalmic (eye) BID 08/27/22 10/10/22 10/11/22 History eye drops (Combigan) ketoconazole 2 % topical cream 1 applic topical BID PRN scaly 08/27/22 10/10/22 10/11/22 History areas on face zinc acetate 50 mg (zinc) capsule 50 mg PO DAILY 08/27/22 10/10/22 10/11/22 History furosemide 40 mg tablet 40 mg PO BID #90 tabs 08/28/22 10/10/22 10/11/22 Rx carvedilol 3.125 mg tablet (Coreg) 3.125 mg PO BID #60 tabs 09/01/22 10/10/22 10/12/22 Rx insulin degludec 200 unit/mL (3 30 unit (0.15 mL) SUBCUT BEDTIME 09/01/22 10/10/22 10/11/22 Rx mL) subcutaneous pen (Tresiba #3 mL FlexTouch U-200 insulin) Allergies Allergy/AdvReac Type Severity Reaction Status Date / Time No Known Allergies Allergy Verified 10/12/22 11:05 Current Medications Generic Name Dose Route Start Last Admin Trade Name Freq PRN Reason Stop Dose Admin Sodium Chloride 1,000 mls @ 30 mls/hr 10/12/22 11:15 10/12/22 11:12 Sodium Chloride 0.9% IV 10/13/22 11:14 30 mls/hr .Q24H JYOTI Administration PFSH Anesthesia Medical History Acute hypokalemia Anticoagulation adequate with anticoagulant therapy Xarelto Atrial fibrillation Paroxysmal Benign prostatic hyperplasia Chronic anticoagulation Xarelto Congestive heart failure Diabetes 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 mellitus Dyslipidemia Gangrene History of nonmelanoma skin cancer HTN (hypertension) Hypertensive urgency MSSA (methicillin susceptible Staphylococcus aureus) infection NSTEMI (non-ST elevated myocardial infarction) Obesity Osteomyelitis of toe of left foot Peripheral arterial disease PVD (peripheral vascular disease) 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 on 07/21/2021 TIA (transient ischemic attack) Varicose vein of leg Surgical History S/P AVR (aortic valve replacement) Bioprosthetic, bovine S/P cataract extraction S/P cholecystectomy Family History Father Diabetes Hypertension Grandfather Diabetes PATERNAL Hypertension PATERNAL Social History Smoking and tobacco status: former smoker Alcohol intake: former Marital status: / service: No Current occupational status: retired Current occupation: retired from [employer] Anesthesia Cardiac Studies: Echocardiogram 08/29/22 Echocardiogram Ultrasound 07/05/20
[2022-10-12 12:33] VITALS: BP 80/42; PULSE 55; RESP 21; TEMP 36.4; O2SAT 91
[2022-10-12 12:41] VITALS: BP 84/38; PULSE 49; RESP 21; O2SAT 93
[2022-10-12 12:55] VITALS: BP 82/40; PULSE 51; RESP 20; O2SAT 94
[2022-10-12 13:05] VITALS: BP 108/37; PULSE 50; RESP 20; O2SAT 94
[2022-10-12 13:12] VITALS: BP 121/46; PULSE 48; RESP 20; O2SAT 94
--- NOTE | 2022-10-12 13:59 | ANE.PACU2 ---
Inpatient post-anesthesia follow up: Airway intact: Yes Vital signs: Temperature 97.6 F Pulse Rate 48 Respiratory Rate 20 Blood Pressure 121/46 Pulse Oximetry 94 Oxygen Delivery Me thod Room Air Oxygen Flow Rate 3 Fraction of Inspir ed Oxygen Hydration adequate: Yes Nausea and vomiting: No Pain level: 2 Mental status: Baseline
== END 2022-10-12 13:40 | disposition home or self-care (01) ==
PROVIDERS: PCP Internal Medicine; Visit Provider Internal Medicine
PROC: (CPT 93312; principal; 2022-10-12 12:00)
DX: I35.0 Nonrheumatic aortic (valve) stenosis (principal); I48.91 Unspecified atrial fibrillation; Z79.01 Long term (current) use of anticoagulants; Z95.2 Presence of prosthetic heart valve; I11.0 Hypertensive heart disease with heart failure; I50.9 Heart failure, unspecified; E11.42 Type 2 diabetes mellitus with diabetic polyneuropathy; E78.5 Hyperlipidemia, unspecified; E66.9 Obesity, unspecified; Z68.32 Body mass index [BMI] 32.0-32.9, adult; I25.2 Old myocardial infarction; Z86.73 Personal history of transient ischemic attack (TIA), and cerebral infarction without residual deficits; Z87.891 Personal history of nicotine dependence; Z79.4 Long term (current) use of insulin
CPT/HCPCS: 36416; 82962; 93312; 93320; 93325; J2704; J7030

== ENCOUNTER → 2022-11-14 16:33 | Outpatient (BNVA) | payer MEDICARE, SELFPAY | PROVIDERS: PCP Internal Medicine; Visit Provider Internal Medicine | DX: J18.9 Pneumonia, unspecified organism (principal); I48.91 Unspecified atrial fibrillation; I35.9 Nonrheumatic aortic valve disorder, unspecified; I42.9 Cardiomyopathy, unspecified; I73.9 Peripheral vascular disease, unspecified; E78.5 Hyperlipidemia, unspecified; Z87.891 Personal history of nicotine dependence | CPT/HCPCS: 36415; 80048; 83880; 99214 ==

== ENCOUNTER → 2022-11-28 13:13 | Outpatient (BNVA) | payer MEDICARE, SELFPAY | PROVIDERS: PCP Internal Medicine; Visit Provider Podiatrist Foot & Ankle Surgery | DX: E11.621 Type 2 diabetes mellitus with foot ulcer (principal); I73.9 Peripheral vascular disease, unspecified; L97.519 Non-pressure chronic ulcer of other part of right foot with unspecified severity; Z79.84 Long term (current) use of oral hypoglycemic drugs | CPT/HCPCS: 99214 ==

== ENCOUNTER 2022-12-25 14:56 | Outpatient (CLI) | payer MEDICARE, SELFPAY ==
[2022-12-25 16:24] LABS: Anion Gap 14.7 (5-19); Blood Urea Nitrogen 46 mg/dL (8-23); Calcium 8.9 mg/dL (8.5-10.5); Carbon Dioxide 31 mmol/L (22-29); Chloride 96 mmol/L (98-107); Glucose 161 mg/dL (65-115); NT Pro B Type Natriuretic Pept 3732 pg/mL (0-125); Osmolality Calculated 303 mOsm/kg (285-295); Sodium 139 mmol/L (136-145)
[2022-12-26 14:49] LABS: Potassium 2.7 mmol/L (3.5-5.1)
== END 2022-12-25 14:57 | disposition home or self-care (01) ==
PROVIDERS: PCP Internal Medicine; Visit Provider Internal Medicine
DX: I48.11 Longstanding persistent atrial fibrillation (principal)
CPT/HCPCS: 36415; 80048; 83880

== ENCOUNTER 2023-01-03 07:58 | Outpatient (CLI) | payer MEDICARE, SELFPAY ==
[2023-01-03 08:15] VITALS: BMI 30.1
--- NOTE | 2023-01-03 08:29 | NMCV_ITS ---
NM mitra perf SPECT r/s* [id number] Surendra Roland Age: 72 Gender: M : 1950 Exam Date: 01/03/2023 08:29 Ordering Phys: Jaime Moore M.D ([email or web address]) Technologist: MURIEL Oswald Exam Location: [facility] Indications: SHORTNESS OF BREATH; CHEST PAIN STRESS TEST [facility] IMAGE PROTOCOL Rest/Stress 1 Lexiscan Day Radiopharmaceutical Dose (mCi) Administration Site Administered by Rest: Tc-99m 10.8 IV MURIEL John Sestamibi Stress:Tc-99m 33.0 IV MURIEL John Sestamibi Rest: 03-Jan-2023 60 Discovery 630 Stress: 03-Jan-2023 30 Discovery 630 0.4mg Lexiscan. Supine position only as patient was unable to lay prone. SPECT RESULTS Technical Quality: Excellent Raw Data Analysis: Normal Image Corrections: No attenuation or motion correction applied Summed Stress Score: 0 Summed Rest Score: 0 Summed Difference Score: 0 PERFUSION FINDINGS SPECT images demonstrate homogeneous tracer distribution throughout the myocardium. FUNCTIONAL RESULTS (calculated via Gated SPECT) Stress Image LV EF (%): 51 Stress EDV (mL):263 TID: 1.01 Stress ESV (mL):128 FUNCTIONAL FINDINGS: There is normal left ventricular systolic function. IMPRESSIONS 1. Normal myocardial perfusion imaging with no evidence of ischemia 2. LV systolic function is normal Jaime Moore MD (Electronically Signed) Final Date: 03 January 2023 12:39 S
--- NOTE | 2023-01-03 08:29 | ECG_ITS ---
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 Interpretive Statements NAME OF STUDY: LEXISCAN SESTAMIBI STRESS TEST INDICATION: [Chest Pain, ] Procedure: At the baseline, the blood pressure was 90/48 mmHg with a heart rate of 53 bpm. The electrocardiogram showed normal sinus bradycardia, normal axis with normal ST and T's. The Lexiscan was infused over a period of 20 seconds. A total of 0.4 mg of Lexiscan was infused. The stress phase was continued for a total of 5 minutes. Heart rate was at the end of stress phase was 58 bpm and a blood pressure of 126/53 mmHg. The EKG at the peak infusion revealed normal sinus rhythm with no significant ST-T wave changes. Sestamibi was injected 20 seconds after the Lexiscan infusion. Blood pressure at the end of recovery phase was 121/52 mmHg with a heart rate of 56 bpm. Conclusion: 1. Normal EKG response to Lexiscan infusion 2. No Lexiscan induced chest pain or cardiac arrhythmia. 3. Normal blood pressure and heart rate response. 4. Sestamibi/sestamibi perfusion scan pending; see separate report. Electronically Signed On 01-13-2023 14:40:44 CDT by Jaime Moore M.D. [email or web address]
[2023-01-03] MEDS: regadenoson 0.4 Mg/5 ml Syringe IVP (10:05)
[2023-01-03 10:50] VITALS: BP 121/52; PULSE 56
== END 2023-01-03 07:59 | disposition home or self-care (01) ==
PROVIDERS: PCP Internal Medicine; Visit Provider Internal Medicine
DX: R07.9 Chest pain, unspecified (principal); R06.02 Shortness of breath
CPT/HCPCS: 36415; 78452; 93017; 96374; A9500; J2785

== ENCOUNTER 2023-01-21 11:43 | Outpatient (CLI) | payer MEDICARE, SELFPAY ==
[2023-01-21 13:23] LABS: Anion Gap 13.5 (5-19); Blood Urea Nitrogen 17 mg/dL (8-23); Calcium 8.4 mg/dL (8.5-10.5); Carbon Dioxide 26 mmol/L (22-29); Chloride 107 mmol/L (98-107); Glucose 136 mg/dL (65-115); NT Pro B Type Natriuretic Pept 7869 pg/mL (0-125); Osmolality Calculated 300 mOsm/kg (285-295); Potassium 3.5 mmol/L (3.5-5.1); Sodium 143 mmol/L (136-145)
== END 2023-01-21 11:44 | disposition home or self-care (01) ==
LOC: LAB 11:51
PROVIDERS: PCP Internal Medicine; Visit Provider Internal Medicine
DX: I42.9 Cardiomyopathy, unspecified (principal); I48.11 Longstanding persistent atrial fibrillation
CPT/HCPCS: 80048; 83880

== ENCOUNTER 2023-02-04 11:35 | Outpatient (CLI) | payer MEDICARE, SELFPAY ==
[2023-02-04 13:26] LABS: Anion Gap 15.5 (5-19); Blood Urea Nitrogen 44 mg/dL (8-23); Calcium 9.4 mg/dL (8.5-10.5); Carbon Dioxide 28 mmol/L (22-29); Chloride 95 mmol/L (98-107); Glucose 179 mg/dL (65-115); NT Pro B Type Natriuretic Pept 2589 pg/mL (0-125); Osmolality Calculated 296 mOsm/kg (285-295); Potassium 3.5 mmol/L (3.5-5.1); Sodium 135 mmol/L (136-145)
== END 2023-02-04 11:36 | disposition home or self-care (01) ==
LOC: LAB 11:42
PROVIDERS: PCP Internal Medicine; Visit Provider Internal Medicine
DX: I48.11 Longstanding persistent atrial fibrillation (principal); I48.91 Unspecified atrial fibrillation
CPT/HCPCS: 36415; 80048; 83880

== ENCOUNTER → 2023-02-26 11:12 | Outpatient (BNVA) | payer MEDICARE, SELFPAY | PROVIDERS: PCP Internal Medicine; Visit Provider Podiatrist Foot & Ankle Surgery | DX: I73.9 Peripheral vascular disease, unspecified (principal); E11.42 Type 2 diabetes mellitus with diabetic polyneuropathy; E11.621 Type 2 diabetes mellitus with foot ulcer; L97.511 Non-pressure chronic ulcer of other part of right foot limited to breakdown of skin; Z79.4 Long term (current) use of insulin | CPT/HCPCS: 99214 ==

== ENCOUNTER 2023-03-06 10:44 | Outpatient (CLI) | payer MEDICARE, SELFPAY ==
[2023-03-06 11:59] LABS: Anion Gap 14.2 (5-19); Blood Urea Nitrogen 58 mg/dL (8-23); Calcium 8.1 mg/dL (8.5-10.5); Carbon Dioxide 25 mmol/L (22-29); Chloride 102 mmol/L (98-107); Glucose 94 mg/dL (65-115); NT Pro B Type Natriuretic Pept 4465 pg/mL (0-125); Osmolality Calculated 302 mOsm/kg (285-295); Potassium 3.2 mmol/L (3.5-5.1); Sodium 138 mmol/L (136-145)
== END 2023-03-06 10:45 | disposition home or self-care (01) ==
PROVIDERS: PCP Internal Medicine; Visit Provider Internal Medicine
DX: N17.9 Acute kidney failure, unspecified (principal); I48.11 Longstanding persistent atrial fibrillation
CPT/HCPCS: 36415; 80048; 83880

== ENCOUNTER → 2023-03-12 13:43 | Outpatient (BNVA) | payer MEDICARE, SELFPAY | PROVIDERS: PCP Internal Medicine; Visit Provider Podiatrist Foot & Ankle Surgery | DX: I73.9 Peripheral vascular disease, unspecified (principal); E11.42 Type 2 diabetes mellitus with diabetic polyneuropathy; L97.421 Non-pressure chronic ulcer of left heel and midfoot limited to breakdown of skin; E11.621 Type 2 diabetes mellitus with foot ulcer; Z79.4 Long term (current) use of insulin | CPT/HCPCS: 99214 ==

== ENCOUNTER 2023-03-26 11:41 | Outpatient (CLI) | payer MEDICARE, SELFPAY ==
[2023-03-26 12:41] LABS: Anion Gap 16.3 (5-19); Blood Urea Nitrogen 29 mg/dL (8-23); Calcium 8.1 mg/dL (8.5-10.5); Carbon Dioxide 20 mmol/L (22-29); Chloride 108 mmol/L (98-107); Glucose 140 mg/dL (65-115); NT Pro B Type Natriuretic Pept 6482 pg/mL (0-125); Osmolality Calculated 300 mOsm/kg (285-295); Potassium 3.3 mmol/L (3.5-5.1); Sodium 141 mmol/L (136-145)
== END 2023-03-26 11:42 | disposition home or self-care (01) ==
PROVIDERS: PCP Internal Medicine; Visit Provider Internal Medicine
DX: I35.9 Nonrheumatic aortic valve disorder, unspecified (principal); I42.9 Cardiomyopathy, unspecified; I48.11 Longstanding persistent atrial fibrillation
CPT/HCPCS: 36415; 80048; 83880

== ENCOUNTER → 2023-05-01 13:32 | Outpatient (BNVA) | payer MEDICARE, SELFPAY | PROVIDERS: PCP Internal Medicine; Visit Provider Podiatrist Foot & Ankle Surgery | DX: I73.9 Peripheral vascular disease, unspecified (principal); E11.42 Type 2 diabetes mellitus with diabetic polyneuropathy; Z79.84 Long term (current) use of oral hypoglycemic drugs | CPT/HCPCS: 99214 ==

== ENCOUNTER → 2023-05-15 16:25 | Outpatient (BNVA) | payer MEDICARE, SELFPAY | PROVIDERS: PCP Internal Medicine; Visit Provider Internal Medicine | DX: N17.9 Acute kidney failure, unspecified (principal); I48.91 Unspecified atrial fibrillation; R07.9 Chest pain, unspecified; R06.02 Shortness of breath | CPT/HCPCS: 36415; 80048; 83880; 85025; 99214 ==

== ENCOUNTER 2023-05-30 13:49 | Outpatient (CLI) | payer MEDICARE, SELFPAY ==
--- NOTE | 2023-05-30 14:30 | USCV_ITS ---
Luan Surendra Age: 72 Gender: M : 1950 Exam Date: 05/30/2023 14:16 Ordering Phys: Jaime Moore M.D ([email or web address]) Technologist: Joann Bosch Exam Location: [facility] Indication: Bovine AOV,CHF, sob BP: 100 / 60 HR: 51 Rhythm: Sinus Technical Quality: Good MEASUREMENTS (Male / Female) Normal Values 2D ECHO LV Diastolic Diameter PLAX 5.3 cm 4.2 - 5.9 / 3.9 - 5.3 cm LV Systolic Diameter PLAX 2.7 cm IVS Diastolic Thickness 0.9 cm 0.6 - 1.0 / 0.6 - 0.9 cm IVS Systolic Thickness 1.8 cm LVPW Diastolic Thickness 1.4 cm 0.6 - 1.0 / 0.6 - 0.9 cm LVPW Systolic Thickness 2.8 cm LVOT Diameter 2.3 cm LV Ejection Fraction 2D Teich 80.1 % LV Ejection Fraction MOD 2C 59.9 % LV Ejection Fraction 2C AL 61.6 % LA Diameter 3.1 cm LA Width 4.6 cm LA Height 5.5 cm RA Width 3.1 cm RA Height 4.6 cm Aorta at Sinotubular Diameter 3.2 cm IVC Diameter 1.5 cm M-MODE Aortic Annulus Diameter 3.5 cm LA Ao Ratio MM 0.8 MV E Point Septal Separation 2.1 cm DOPPLER AV Peak Velocity 319.5 cm/s LVOT Peak Velocity 81.0 cm/s AV Area Cont Eq vti 1.1 cm squared AV Area Cont Eq pk 1.0 cm squared MV Peak Velocity 158.0 cm/s MV Area PHT 3.1 cm squared Mitral E to A Ratio 6.9 MV E' Velocity 75.5 cm/s Mitral E to MV E' Ratio 12.3 Mitral E to LV E' Lateral Ratio 9.5 Mitral E to LV E' Septal Ratio 17.2 TR Peak Velocity 207.8 cm/s TR Peak Gradient 17.3 mmHg Right Atrial Pressure 5.0 mmHg Pulmonary Artery Systolic Pressu 22.3 mmHg PV Peak Velocity 85.0 cm/s RV Acceleration Time 0.1 s RV Ejection Time 0.3 s RV AcT/ET 0.4 FINDINGS Left Ventricle Left ventricle is normal in size. LV systolic function is mildly reduced with EF of 45 to 50%. Mild global hypokinesis seen. Right Ventricle Normal in size. RV function is mildly reduced Right Atrium Normal size Left Atrium Dilated Mitral Valve Moderate mitral annular calcification seen. Mild mitral regurgitation. Aortic Valve Bioprosthetic aortic valve. Mild to moderate aortic regurgitation. Moderate aortic stenosis with aortic valve area 1.1 cm2. Mean gradient across aortic valve of 21 mmHg. DVI is 0.26 Tricuspid Valve Mild tricuspid regurgitation. Insufficient TR jet to calculate RVSP. Pulmonic Valve Mild pulmonic regurgitation. Pericardium Normal Aorta Mildly dilated ascending aorta with diameter of 3.83cm IVC Appears to be normal CONCLUSIONS LV systolic function is mildly reduced with EF of 45-50% RV function is mildly reduced Left atrial dilation Mild mitral regurgitation Bioprosthetic aortic valve. Mild to moderate aortic regurgitation. Moderate aortic stenosis with aortic valve area 1.1 cm2. Mean gradient across aortic valve of 21 mmHg. DVI is 0.26 Mild pulmonic regurgitation. Mild tricuspid regurgitation Mildly dilated ascending aorta Compared to prior echocardiogram from 08/2022, no significant changes are seen Jaime Moore MD (Electronically Signed) Final Date: 17 June 2023 09:26 S
== END 2023-05-30 13:50 | disposition home or self-care (01) ==
PROVIDERS: PCP Internal Medicine; Visit Provider Internal Medicine
DX: I08.3 Combined rheumatic disorders of mitral, aortic and tricuspid valves (principal); R06.02 Shortness of breath; R07.9 Chest pain, unspecified
CPT/HCPCS: 93306

== ENCOUNTER → 2023-06-18 14:47 | Outpatient (BNVA) | payer MEDICARE, SELFPAY | PROVIDERS: PCP Internal Medicine; Visit Provider Podiatrist Foot & Ankle Surgery | DX: E11.42 Type 2 diabetes mellitus with diabetic polyneuropathy; L97.522 Non-pressure chronic ulcer of other part of left foot with fat layer exposed; Z79.84 Long term (current) use of oral hypoglycemic drugs | CPT/HCPCS: 99213 ==

== ENCOUNTER → 2023-06-21 09:02 | Outpatient (BNVA) | payer MEDICARE, SELFPAY | PROVIDERS: PCP Internal Medicine; Visit Provider Nurse Practitioner Family | DX: E11.52 Type 2 diabetes mellitus with diabetic peripheral angiopathy with gangrene (principal); L97.522 Non-pressure chronic ulcer of other part of left foot with fat layer exposed | CPT/HCPCS: 11042; 99213; A6210 ==

== ENCOUNTER 2023-06-28 12:09 | Outpatient (CLI) | payer MEDICARE, SELFPAY ==
--- NOTE | 2023-06-28 12:18 | XR_ITS ---
WS: [id number] XR foot LT min 3V* [id number] REASON FOR EXAM: E11.621 - Type 2 diabetes mellitus with foot ulcer FINDINGS: On the frontal view only, there appears to be a rarefaction of bone and loss of cortical definition i n the medial base of the proximal phalanx of the fifth toe. This finding is not demonstrated on the a dditional views. There is an organized irregular periosteal reaction along the lateral margin of the second metatarsal . Much less prominent prominent but similar findings are seen along the medial margin of the second m etatarsal. IMPRESSION: Potential lysis of bone in the proximal phalanx of the fifth toe. Organized periosteal reaction of th e fourth and second metatarsals. If the patient's foot ulcer is in this region this would be of some concern for osteomyelitis. Note is made that on the examination of the right foot 05/06/2021 similar findings were seen as are no aarti on the current study. On 09/16/2021 the examination of the right foot demonstrated extensive oste omyelitis involving the second through the fifth metatarsals and phalanges.
== END 2023-06-28 12:10 | disposition home or self-care (01) ==
PROVIDERS: PCP Internal Medicine; Visit Provider Nurse Practitioner Family
DX: E11.52 Type 2 diabetes mellitus with diabetic peripheral angiopathy with gangrene (principal); L97.522 Non-pressure chronic ulcer of other part of left foot with fat layer exposed; E11.69 Type 2 diabetes mellitus with other specified complication; M86.9 Osteomyelitis, unspecified
CPT/HCPCS: 11042; 73630; 87070; 87176; 87205; A6210

== ENCOUNTER 2023-07-05 16:43 | Outpatient (CLI) | payer MEDICARE, SELFPAY ==
[2023-07-05 17:05] LABS: Basophils # 0.1 10^3/uL (0.0-0.1); Basophils % 0.6 %; Eosinophils # 0.2 10^3/uL (0.0-0.8); Eosinophils % 1.7 %; Hematocrit 37.5 % (37-53); Lymphocytes # 0.9 10^3/uL (0.8-4.8); Lymphocytes % 7.6 %; Mean Corpuscular HGB Conc 30.4 g/dL (30-55); Mean Corpuscular Hemoglobin 24.7 pg (27-33); Mean Corpuscular Volume 81.2 fl (82-101); Mean Platelet Volume 9.5 fL (7.4-10.4); Neutrophils # 9.33 10^3/uL (1.8-7.7); Neutrophils % 80.7 %; Nucleated Red Blood Cells % 0 %; Platelet Count 268 10^3/cmm (157-399); Red Blood Count 4.62 10^6/uL (3.85-5.65); White Blood Count 11.57 10^3/uL (3.29-11.43)
[2023-07-05 17:08] LABS: Erythrocyte Sedimentation Rate 86 mm/hr (0-10)
[2023-07-05 17:09] LABS: Slide Review Slide Review Perform
[2023-07-05 17:22] LABS: Alanine Aminotransferase 15 U/L (0-41); Albumin Level 3.9 g/dL (3.5-5.2); Alkaline Phosphatase 69 U/L (40-130); Anion Gap 17.9 (5-19); Aspartate Amino Transferase 16 U/L (0-40); Blood Urea Nitrogen 63 mg/dL (8-23); C Reactive Protein 106.4 mg/L (0.0-4.9); Calcium 9.7 mg/dL (8.5-10.5); Carbon Dioxide 30 mmol/L (22-29); Chloride 92 mmol/L (98-107); Globulin 3.6 g/dL (1.3-4.6); Glucose 145 mg/dL (65-115); Osmolality Calculated 305 mOsm/kg (285-295); Sodium 137 mmol/L (136-145); Total Bilirubin 0.7 mg/dL (0.15-1.2); Total Protein 7.5 g/dL (6.6-8.7)
[2023-07-08 10:31] LABS: Potassium 2.9 mmol/L (3.5-5.1)
== END 2023-07-05 16:44 | disposition home or self-care (01) ==
PROVIDERS: PCP Internal Medicine; Visit Provider Thoracic Surgery (Cardiothoracic Vascular Surgery)
DX: E11.621 Type 2 diabetes mellitus with foot ulcer (principal); L97.509 Non-pressure chronic ulcer of other part of unspecified foot with unspecified severity
CPT/HCPCS: 11044; 36415; 80053; 85025; 85651; 86140; 87070; 87077; 87176; 87186; 87205

== ENCOUNTER 2023-07-12 15:28 | Inpatient (IN) | payer MEDICARE, SELFPAY ==
[2023-07-12] VITALS (7 sets, daily range): BP systolic 130–141; BP diastolic 43–63; PULSE 59–86; RESP 16–20; TEMP 37; O2SAT 93–96; BMI 28.7
--- NOTE | 2023-07-12 15:59 | ED_ITS ---
HPI - Wound/Laceration General: Chief Complaint: Wound/Laceration Stated Complaint: wound LLE Time Seen by Provider: 07/12/23 15:34 Source: patient Mode of arrival: ambulatory Limitations: no limitations History of Present Illness: Patient presents to the emergency department today after discussions from the wound care clinic for concerns of worsening left fourth toe infection. Patient has a history of diabetic foot wounds and over the last few years has been seen for various wounds by the wound care clinic. Patient was seeing his scada engineer, Dr. Duggan, on 06/18 when he noticed development of a new wound/ulceration to the left fourth toe. He was referred back to wound care for this finding. Since then, they have tried bandaging and antibiotics. Patient has been on Levaquin and culture results recently grew Klebsiella pneumonia, Staphylococcus aureus, and Staphylococcus agalactia. At his appointment today, wound care indicated they were very concerned that imaging was showing an osteomyelitis developing and he was not responding well to oral antibiotics. They discussed with him hospital admission for IV antibiotics. Patient at that time was adamant that he did not want to be in the hospital. They therefore reached out to Dr. Duggan who agreed to see the patient on Saturday. Patient was told that they do not think the toe is salvageable and without removal jeopardizes the rest of his left lower extremity. After expressing the severity of the situation, patient then changed his mind and was willing to come to the emergency department for further intervention. Review of Systems General: Reports: 10 or more systems reviewed and unremarkable except in HPI and below PFSH ED PFSH: Medical History Acute hypokalemia Anticoagulation adequate with anticoagulant therapy Xarelto Atrial fibrillation Paroxysmal Benign prostatic hyperplasia Chronic anticoagulation Xarelto Congestive heart failure Diabetes 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 mellitus Dyslipidemia Gangrene History of nonmelanoma skin cancer HTN (hypertension) Hypertensive urgency MSSA (methicillin susceptible Staphylococcus aureus) infection NSTEMI (non-ST elevated myocardial infarction) Obesity Osteomyelitis of toe of left foot Peripheral arterial disease PVD (peripheral vascular disease) 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 on 07/21/2021 TIA (transient ischemic attack) Varicose vein of leg Surgical History S/P AVR (aortic valve replacement) Bioprosthetic, bovine S/P cataract extraction S/P cholecystectomy Family History Father Diabetes Hypertension Grandfather Diabetes PATERNAL Hypertension PATERNAL Social History Smoking and tobacco status: former smoker Alcohol intake: former Substance/Drug Use: never Marital status: / service: No Current occupational status: retired Current occupation: retired from [employer] Physical Exam Const: COMMON NORMALS: no acute distress, patient oriented x3 and alert HENMT: COMMON NORMALS: normocephalic, atraumatic and hearing grossly normal bilaterally HEAD & SCALP: normocephalic and atraumatic Eye: COMMON NORMALS: Equal, round and reactive pupils present, EOMs intact bilaterally and conjunctivae normal CONJUNCTIVA: Yes conjunctivae normal PUPIL: Yes Equal, round and reactive pupils present Neck/C-Spine: COMMON NORMALS: full ROM and no JVD Lymph: LYMPHATIC: no lymphadenopathy noted Resp: COMMON NORMALS: normal respiratory effort, No retractions and No use of accessory muscles Cardio: COMMON NORMALS: no JVD and regular rate RATE: regular rate Extremity: NARRATIVE EXTREMITY EXAM: Patient has erythema developing to the distal left mahajan, ankle, and foot. It also has a slight purple discoloration. There is edema noted. Patient has significant area of maceration around the base of the left fourth digit with discoloration of the toe and malodor. Neuro: COMMON NORMALS: patient oriented x3 SENSORIUM/ORIENTATION: Yes alert Psych: COMMON NORMALS: mental status grossly normal, Normal thought process present, cooperative and normal affect THOUGHT PROCESS: Normal thought process present Skin: COMMON NORMALS: no rashes or lesions noted and turgor normal GENERAL SKIN EXAM: no rashes or lesions noted and turgor normal Course Vital Signs: Vital signs: Vital Signs Temperature 98.6 F 07/12/23 15:36 Pulse Rate 59 L 07/12/23 16:30 Respiratory Rate 20 H 07/12/23 16:30 Blood Pressure 130/50 07/12/23 16:30 Pulse Oximetry 96 07/12/23 16:30 Oxygen Delivery Me thod Room Air 07/12/23 16:18 MDM - Wound/Laceration Medical Decision Making After reading the wound care note, it is indicated that they would like him to be admitted for IV antibiotics. They already reached out to podiatry but that was for follow-up on Saturday. I reached out to podiatry on-call here-Dr. Collier regarding the presenting complaint of the patient. He indicated that the patient met admission criteria he would be happy to consult over the weekend and perform amputation if needed during that time. Lab work shows elevated white blood cell count of 16.5. He has notably elevated inflammatory markers with a CRP of 204 and a sed rate of 60. Patient appears to be in EZEQUIEL with creatinine 3.8 and a BUN of 97 chart review shows that he has had increasing creatinine and BUN levels for several months but have never been this high. Patient's procalcitonin is within normal limits at 0.3. Though the patient's urinalysis and BNP are still pending I reached out to the hospitalist services. I am starting the patient on 500 cc bolus of fluids until I know BNP as he does have a history of CHF. I was able speak with the hospitalist services who are in agreement to admitting the patient. Broad-spectrum antibiotic with Vanco and Zosyn started. Patient was seen at bedside by Dr. Collier and at the request of hospitalist services, CT of the abdomen pelvis without contrast was ordered. [facility] and intervention at this time. Differential Diagnosis Likely laceration, abscess, abrasion and avulsion of skin Lab Data 07/12/23 15:13 07/12/23 15:13 Laboratory Results WBC 16.50 10^3/uL (3.29-11.43) H 07/12/23 15:13 RBC 4.48 10^6/uL (3.85-5.65) 07/12/23 15:13 Hgb 11.10 g/dL (11.27-16.99) L 07/12/23 15:13 Hct 35.8 % (37-53) L 07/12/23 15:13 MCV 79.9 fl (82-101) L 07/12/23 15:13 MCH 24.8 pg (27-33) L 07/12/23 15:13 MCHC 31.0 g/dL (30-55) 07/12/23 15:13 RDW Not Reportable 07/12/23 15:13 Plt Count 332 10^3/cmm (157-399) 07/12/23 15:13 MPV 10.0 fL (7.4-10.4) 07/12/23 15:13 Neut % (Auto) 86.8 % 07/12/23 15:13 Lymph % (Auto) 3.6 % 07/12/23 15:13 [place] % (Auto) 8.2 % 07/12/23 15:13 Eos % (Auto) 0.7 % 07/12/23 15:13 Baso % (Auto) 0.2 % 07/12/23 15:13 Neut # (Auto) 14.32 10^3/uL (1.8-7.7) H 07/12/23 15:13 Lymph # (Auto) 0.6 10^3/uL (0.8-4.8) L 07/12/23 15:13 [place] # (Auto) 1.4 10^3/uL (0.2-0.9) H 07/12/23 15:13 Eos # (Auto) 0.1 10^3/uL (0.0-0.8) 07/12/23 15:13 Baso # (Auto) 0.0 10^3/uL (0.0-0.1) 07/12/23 15:13 Nucleated RBC % (auto) 0 % 07/12/23 15:13 Nucleated RBCs # 0.0 /100WBC 07/12/23 15:13 Hypochromasia 1+ H 07/12/23 15:13 Anisocytosis 2+ H 07/12/23 15:13 Target Cells Trace 07/12/23 15:13 ESR 60 mm/hr (0-10) H 07/12/23 15:13 Sodium 133 mmol/L (136-145) L 07/12/23 15:13 Potassium 3.2 mmol/L (3.5-5.1) L 07/12/23 15:13 Chloride 84 mmol/L (98-107) L 07/12/23 15:13 Carbon Dioxide 29 mmol/L (22-29) 07/12/23 15:13 Anion Gap 23.2 (5-19) H 07/12/23 15:13 BUN 97 mg/dL (8-23) H* D 07/12/23 15:13 Creatinine 3.8 mg/dL (0.7-1.2) H 07/12/23 15:13 GFR Calculation Not Reportable 07/12/23 15:13 Glucose 60 mg/dL (65-115) L 07/12/23 15:13 Calculated Osmolality 304 mOsm/kg (285-295) H 07/12/23 15:13 Lactic Acid 3.1 mmol/L (0.5-2.2) H 07/12/23 16:26 Calcium 9.1 mg/dL (8.5-10.5) 07/12/23 15:13 Total Bilirubin 0.5 mg/dL (0.15-1.2) 07/12/23 15:13 AST 37 U/L (0-40) 07/12/23 15:13 ALT 22 U/L (0-41) 07/12/23 15:13 Alkaline Phosphatase 103 U/L (40-130) 07/12/23 15:13 C-Reactive Protein 204.0 mg/L (0.0-4.9) H 07/12/23 15:13 NT-Pro-B Natriuret Pep 6373 pg/mL (0-125) H 07/12/23 15:13 Total Protein 7.9 g/dL (6.6-8.7) 07/12/23 15:13 Albumin 4.0 g/dL (3.5-5.2) 07/12/23 15:13 Globulin 3.9 g/dL (1.3-4.6) 07/12/23 15:13 Procalcitonin 0.30 ng/mL (0-0.5) 07/12/23 15:13 No radiology studies performed this visit Discharge Plan Discharge Patient Disposition: Admitted As Inpatient Clinical Impression: PVD (peripheral vascular disease), EZEQUIEL (acute kidney injury), Diabetes Condition: Stable Discharge Diet: Usual diet Discharge Activity: Limit activity as instructed Coding Level of Care Code ED Emblem Fuser Tender for Era Hung
[2023-07-12 16:11] LABS: Basophils % 0.2 %; Eosinophils # 0.1 10^3/uL (0.0-0.8); Eosinophils % 0.7 %; Hematocrit 35.8 % (37-53); Lymphocytes # 0.6 10^3/uL (0.8-4.8); Lymphocytes % 3.6 %; Mean Corpuscular Hemoglobin 24.8 pg (27-33); Mean Corpuscular Volume 79.9 fl (82-101); Monocytes # 1.4 10^3/uL (0.2-0.9); Monocytes % 8.2 %; Neutrophils # 14.32 10^3/uL (1.8-7.7); Neutrophils % 86.8 %; Nucleated Red Blood Cells % 0 %; Platelet Count 332 10^3/cmm (157-399); Red Blood Count 4.48 10^6/uL (3.85-5.65)
--- NOTE | 2023-07-12 16:12 | PC.PHAR ---
pt states he has not taken any of his meds today.
[2023-07-12 16:15] LABS: Erythrocyte Sedimentation Rate 60 mm/hr (0-10)
[2023-07-12 16:23] LABS: Alanine Aminotransferase 22 U/L (0-41); Alkaline Phosphatase 103 U/L (40-130); Anion Gap 23.2 (5-19); Aspartate Amino Transferase 37 U/L (0-40); Calcium 9.1 mg/dL (8.5-10.5); Carbon Dioxide 29 mmol/L (22-29); Chloride 84 mmol/L (98-107); Globulin 3.9 g/dL (1.3-4.6); Glucose 60 mg/dL (65-115); Osmolality Calculated 304 mOsm/kg (285-295); Potassium 3.2 mmol/L (3.5-5.1); Sodium 133 mmol/L (136-145); Total Bilirubin 0.5 mg/dL (0.15-1.2); Total Protein 7.9 g/dL (6.6-8.7)
[2023-07-12 16:24] LABS: Blood Urea Nitrogen 97 mg/dL (8-23)
[2023-07-12 16:27] LABS: Add RBC Morph Yes; Slide Review Slide Review Perform
[2023-07-12 16:28] LABS: Anisocytosis 2+; Hypochromasia 1+; RBC Morph Comp No; Target Cells Trace
[2023-07-12] MEDS: sodium chloride 0.9% 500 ML IV (16:37)
--- NOTE | 2023-07-12 16:56 | CTR_ITS ---
PROCEDURE INFORMATION: Exam: CT Abdomen And Pelvis Without Contrast Exam date and time: 07/12/2023 5:09 PM Age: 73 years old Clinical indication: Condition or disease; Kidney or ureter condition; Chronic kidney disease or failure; Not specified; Prior surgery; Surgery date: 6+ months; Surgery type: Gb; Additional info: [place], per Dr Sullivan TECHNIQUE: Imaging protocol: Computed tomography of the abdomen and pelvis without contrast. Radiation optimization: All CT scans at this facility use at least one of these dose optimization techniques: automated exposure control; mA and/or kV adjustment per patient size (includes targeted exams where dose is matched to clinical indication); or iterative reconstruction. REPORTING DATA: Count of CT and Cardiac NM exams in prior 12 months: This patient has received 2 known CTs and 0 known cardiac nuclear medicine studies in the 12 months prior to the current study. COMPARISON: CT angio chest w abd pel w con 08/27/2022 8:02 PM RADIATION DOSE METRICS: Total DLP (mGy-cm): 832.99 FINDINGS: Lungs: 5 mm calcified granuloma of the right lung base. No infiltrates at the lung bases. Heart: Cardiomegaly is noted. Prosthetic aortic valve noted. Liver: Calcified granulomas are seen in the liver. Gallbladder and bile ducts: The gallbladder is surgically absent. Pancreas: Atrophy of the pancreas with pancreatic calcifications, consistent with chronic pancreatitis. No changes of acute pancreatitis noted. Spleen: Unremarkable. No splenomegaly. Adrenal glands: Thickening of the bilateral adrenal glands noted. Kidneys and ureters: The kidneys are morphologically normal. No nephrolithiasis. No hydronephrosis. No ureteral calculi. No obstructive uropathy. Stomach and bowel: Excessive retained stool noted in the colon, suggesting constipation. No acute gastric abnormality demonstrated. The small bowel is unremarkable as demonstrated. Appendix: No evidence of appendicitis. Intraperitoneal space: No pneumoperitoneum. No significant fluid collection. Vasculature: The aorta is atherosclerotic. No aortic aneurysm. Lymph nodes: No pathologically enlarged lymph nodes. Urinary bladder: The urinary bladder is unremarkable in appearance. Reproductive: Prostate gland is mildly enlarged. Bones/joints: Degenerative spine changes are noted. Soft tissues: The soft tissues are unremarkable as demonstrated. CT/CT abdomen pelvis wo con [id number] IMPRESSION: 1. Atrophy of the pancreas with pancreatic calcifications, consistent with chronic pancreatitis. No changes of acute pancreatitis noted. 2. Prostate gland is mildly enlarged. 3. Excessive retained stool noted in the colon, suggesting constipation. 4. No acute abnormality demonstrated in the abdomen and pelvis.
[2023-07-12 16:57] LABS: NT Pro B Type Natriuretic Pept 6373 pg/mL (0-125)
[2023-07-12 17:00] LABS: Lactic Sepsis W/Reflex 3.1 mmol/L (0.5-2.2)
--- NOTE | 2023-07-12 17:24 | P.HP_ITS ---
Providers/Chief Complaint Primary Care Provider: Chon Bradshaw DO Chief Complaint: wound LLE History of Present Illness Surendra Roland is a 73 year old male who was sent from the wound care clinic for worsening of his wound of the left toe. Dr. Collier was consulted. Patient was afebrile at the time of admission mild leukocytosis present with significant worsening of creatinine. Patient was getting antibiotics outpatient. Patient very hard of hearing.The patient has been established with podiatry up to this point. He most recently saw Dr. Duggan on 06/18/23 where a new ulceration was noted to the lateral aspect of the 4th toe left foot. Patient has a history of chronic ulcerations and osteomyelitis in the past. With the workup of his new wound, he was referred to wound care. He has been seeing wound care over the course of the past couple of weeks. His wound continued to worsen.? Review of Systems Const: Denies: chills Eyes: Denies: change in vision ENMT: Denies: swelling of lips/tongue Card: Denies: chest pain Resp: Reports: dyspnea GI: Denies: abdominal pain : Denies: flank pain Musc: Denies: neck pain Skin/Breast: Reports: rash Neuro: Denies: headache(s) Medications/Allergies Home Medications Medication Instructions Recorded Confirmed Last Taken Type duloxetine 60 mg capsule,delayed 60 mg PO BEDTIME 02/22/20 07/12/23 07/11/23 History release (Cymbalta) tamsulosin 0.4 mg capsule (Flomax) 0.8 mg PO BEDTIME 02/22/20 07/12/23 07/11/23 History empagliflozin 25 mg tablet 25 mg PO QAM 05/06/21 07/12/23 07/12/23 History (Jardiance) multivitamin 1 tab PO QAM 05/06/21 07/12/23 07/11/23 History cholecalciferol (vitamin D3) 25 25 mcg PO QAM 08/01/21 07/12/23 07/11/23 History mcg (1,000 unit) capsule flash glucose sensor (FreeStyle #1 ea 05/01/22 07/12/23 10/11/22 History Marisela 14 Day Sensor kit) insulin aspart U-100 100 unit/mL 15 - 25 unit SUBCUT AC 05/30/22 07/12/23 07/11/23 History subcutaneous cartridge (Novolog PenFill U-100 Insulin aspart) brimonidine 0.2 %-timolol 0.5 % 1 drp ophthalmic (eye) BID 08/27/22 07/12/23 07/11/23 History eye drops (Combigan) ketoconazole 2 % topical cream 1 applic topical BID PRN scaly 08/27/22 07/12/23 10/11/22 History areas on face zinc acetate 50 mg (zinc) capsule 50 mg PO QAM 08/27/22 07/12/23 07/11/23 History sertraline 50 mg tablet 50 mg PO QAM 11/14/22 07/12/23 07/11/23 History Diabetic shoes with 3 pair of #1 ea 11/28/22 07/12/23 Unknown Rx inserts potassium chloride 20 mEq 20 meq PO QAM #90 tabs 02/04/23 07/12/23 07/11/23 Rx tablet,extended release losartan 50 mg tablet 50 mg PO QAM #90 tabs 02/06/23 07/12/23 07/11/23 Rx bumetanide 1 mg tablet 1 mg PO BID 05/15/23 07/12/23 07/11/23 History carvedilol 3.125 mg tablet (Coreg) 3.125 mg PO QAM 07/12/23 07/12/23 07/11/23 History ciprofloxacin HCl 500 mg tablet 500 mg PO BID #20 tabs 07/12/23 07/12/23 07/11/23 Rx insulin degludec 200 unit/mL (3 30 unit SUBCUT BEDTIME PRN blood 07/12/23 1 Unknown History mL) subcutaneous pen (Tresiba sugar FlexTouch U-200 insulin) linezolid 600 mg tablet 600 mg PO BID #20 tabs 07/12/23 07/12/23 07/11/23 Rx metolazone 5 mg tablet 5 mg PO QAM 07/12/23 07/12/23 07/11/23 History Allergies Allergy/AdvReac Type Severity Reaction Status Date / Time No Known Allergies Allergy Verified 07/12/23 15:48 PFSH Acute PFSH: Medical History Acute hypokalemia Anticoagulation adequate with anticoagulant therapy Xarelto Atrial fibrillation Paroxysmal Benign prostatic hyperplasia Chronic anticoagulation Xarelto Congestive heart failure Diabetes 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 mellitus Dyslipidemia Gangrene History of nonmelanoma skin cancer HTN (hypertension) Hypertensive urgency MSSA (methicillin susceptible Staphylococcus aureus) infection NSTEMI (non-ST elevated myocardial infarction) Obesity Osteomyelitis of toe of left foot Peripheral arterial disease PVD (peripheral vascular disease) 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 on 07/21/2021 TIA (transient ischemic attack) Varicose vein of leg Surgical History S/P AVR (aortic valve replacement) Bioprosthetic, bovine S/P cataract extraction S/P cholecystectomy Family History Father Diabetes Hypertension Grandfather Diabetes PATERNAL Hypertension PATERNAL Social History Smoking and tobacco status: former smoker Alcohol intake: former Substance/Drug Use: never Marital status: / service: No Current occupational status: retired Current occupation: retired from [employer] Vitals/I&O/Wt Last Vital Signs Temp 98.6 F 07/12/23 15:36 Pulse 59 L 07/12/23 16:30 Resp 20 H 07/12/23 16:30 BP 130/50 07/12/23 16:30 Pulse Ox 96 07/12/23 16:30 O2 Del Method Room Air 07/12/23 16:18 Weight last 48 hrs Weight 90.718 kg Physical Exam Narrative: Patient is awake and alert GCS 15 Left toe with gangrene osteomyelitis GCS 15 Hard of hearing S1, S2 Currently on room air Eating dinner Septic exam No skin mottling Awake and alert No signs of confusion Data 07/13/23 04:06 07/13/23 04:06 Micro: Microbiology 07/12/23 16:20 Blood Culture - Preliminary Blood SPECIMEN COLLECTED 07/12/23 16:26 Blood Culture - Preliminary Blood SPECIMEN COLLECTED A&P Assessment and plan (1) Diabetic wet gangrene of the foot: (2) EZEQUIEL (acute kidney injury): (3) Diabetes: (4) Non-pressure chronic ulcer of other part of left foot with fat layer exposed: (5) EZEQUIEL (acute kidney injury): (6) Cardiomyopathy: (7) Aortic valve disease: Plan 4 th toe wet gangrene plan for amputation tomorrow NPO after midnight Hold insulin and bumex Patient has high lactic acid with leukocytosis I do not see any signs of tachyca rdia or fever Has received antibiotics, blood cultures have been taken, he had received judicious IV fluids 10 mL/kg stating high BNP, sepsis not present on admission Ezequiel Rule out postrenal obstruction Patient history of BPH hold losartan requested CT abd pelvis COnstipation Give lactulose 20 gm now Full code NPo after MN Hold dvt ppx Attestations Medical Necessity Statement*: More than 2 midnights anticipated Diagnoses Diabetic wet gangrene of the foot E11.52 EZEQUIEL (acute kidney injury) N17.9 Diabetes E11.9 Non-pressure chronic ulcer of other part of left foot with fat layer exposed L97.522 Cardiomyopathy I42.9 Aortic valve disease I35.9
[2023-07-12] MEDS: piperacillin-tazobactam 3.375 GM in sodium chloride 0.9% (plus) 50 ML IV (17:38)
[2023-07-12 18:17] LABS: Reflex Lactate Order REFLEX LACTIC ORDERD
--- NOTE | 2023-07-12 18:23 | PM.CONSULT ---
Providers/Reason For Consult Consulting Physician/Specialty*: Dr. Flynn Collier, DPM/Podiatry Reason for Consult*: Left foot 4th toe wet gangrene Primary Care Provider: Chon Bradshaw DO History of Present Illness History of Present Illness Surendra Roland is a 73 year old male with history of Dm2 and severe PAD who presented to the ED with chief complaint of worsening wound to left foot 4th toe. The patient has been established with podiatry up to this point. He most recently saw Dr. Duggan on 06/18/23 where a new ulceration was noted to the lateral aspect of the 4th toe left foot. Patient has a history of chronic ulcerations and osteomyelitis in the past. With the workup of his new wound, he was referred to wound care. He has been seeing wound care over the course of the past couple of weeks. His wound continued to worsen. He was seen in wound care earlier today and given the condition of his left foot he was advised to come to the hospital for admission for IV abx and possible toe amputation. Originally the patient was against this. However, after furtehr discussion and laying out the risks and potiential for more proximal amputation, the patient was agreeable to come to the hospital for admission and further workup. Podaitry was consulted to evalute and provide further recommendations. The patient denies any subjective constitutional symptoms but he does endorse general malaise and fatigue. Review of Systems General: Reports: 10 or more systems reviewed and unremarkable except in HPI and below Const: Denies: fever(s), chills, body aches or change in appetite Eyes: Denies: change in vision or blurry vision Card: Denies: chest pain, palpitations or irregular heart rhythm Resp: Denies: dyspnea GI: Denies: abdominal pain, nausea, vomiting or diarrhea Musc: Reports: joint stiffness Skin/Breast: Reports: non-healing lesions and lesions Neuro: Reports: numbness in extremities Medications/Allergies Home Medications Medication Instructions Recorded Confirmed Last Taken Type duloxetine 60 mg capsule,delayed 60 mg PO BEDTIME 02/22/20 07/12/23 07/11/23 History release (Cymbalta) tamsulosin 0.4 mg capsule (Flomax) 0.8 mg PO BEDTIME 02/22/20 07/12/23 07/11/23 History empagliflozin 25 mg tablet 25 mg PO QAM 05/06/21 07/12/23 07/12/23 History (Jardiance) multivitamin 1 tab PO QAM 05/06/21 07/12/23 07/11/23 History cholecalciferol (vitamin D3) 25 25 mcg PO QAM 08/01/21 07/12/23 07/11/23 History mcg (1,000 unit) capsule flash glucose sensor (FreeStyle #1 ea 05/01/22 07/12/23 10/11/22 History Marisela 14 Day Sensor kit) insulin aspart U-100 100 unit/mL 15 - 25 unit SUBCUT AC 05/30/22 07/12/23 07/11/23 History subcutaneous cartridge (Novolog PenFill U-100 Insulin aspart) brimonidine 0.2 %-timolol 0.5 % 1 drp ophthalmic (eye) BID 08/27/22 07/12/23 07/11/23 History eye drops (Combigan) ketoconazole 2 % topical cream 1 applic topical BID PRN scaly 08/27/22 07/12/23 10/11/22 History areas on face zinc acetate 50 mg (zinc) capsule 50 mg PO QAM 08/27/22 07/12/23 07/11/23 History sertraline 50 mg tablet 50 mg PO QAM 11/14/22 07/12/23 07/11/23 History Diabetic shoes with 3 pair of #1 ea 11/28/22 07/12/23 Unknown Rx inserts potassium chloride 20 mEq 20 meq PO QAM #90 tabs 02/04/23 07/12/23 07/11/23 Rx tablet,extended release losartan 50 mg tablet 50 mg PO QAM #90 tabs 02/06/23 07/12/23 07/11/23 Rx bumetanide 1 mg tablet 1 mg PO BID 05/15/23 07/12/23 07/11/23 History carvedilol 3.125 mg tablet (Coreg) 3.125 mg PO QAM 07/12/23 07/12/23 07/11/23 History ciprofloxacin HCl 500 mg tablet 500 mg PO BID #20 tabs 07/12/23 07/12/23 07/11/23 Rx insulin degludec 200 unit/mL (3 30 unit SUBCUT BEDTIME PRN blood 07/12/23 07/12/23 Unknown History mL) subcutaneous pen (Tresiba sugar FlexTouch U-200 insulin) linezolid 600 mg tablet 600 mg PO BID #20 tabs 07/12/23 07/12/23 07/11/23 Rx metolazone 5 mg tablet 5 mg PO QAM 07/12/23 07/12/23 07/11/23 History Allergies Allergy/AdvReac Type Severity Reaction Status Date / Time No Known Allergies Allergy Verified 07/12/23 15:48 Current Medications Generic Name Dose Route Start Last Admin Trade Name Freq PRN Reason Stop Dose Admin Piperacillin Sod/Tazobactam 50 mls @ 12.5 mls/hr 07/12/23 18:00 07/12/23 17:38 Sod 3.375 gm/ Sodium Chloride IV 12.5 mls/hr Q8H JYOTI Administration Protocol As Directed PFSH Acute PFSH: Medical History Acute hypokalemia Anticoagulation adequate with anticoagulant therapy Xarelto Atrial fibrillation Paroxysmal Benign prostatic hyperplasia Chronic anticoagulation Xarelto Congestive heart failure Diabetes 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 mellitus Dyslipidemia Gangrene History of nonmelanoma skin cancer HTN (hypertension) Hypertensive urgency MSSA (methicillin susceptible Staphylococcus aureus) infection NSTEMI (non-ST elevated myocardial infarction) Obesity Osteomyelitis of toe of left foot Peripheral arterial disease PVD (peripheral vascular disease) 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 on 07/21/2021 TIA (transient ischemic attack) Varicose vein of leg Surgical History S/P AVR (aortic valve replacement) Bioprosthetic, bovine S/P cataract extraction S/P cholecystectomy Family History Father Diabetes Hypertension Grandfather Diabetes PATERNAL Hypertension PATERNAL Social History Smoking and tobacco status: former smoker Alcohol intake: former Substance/Drug Use: never Marital status: / service: No Current occupational status: retired Current occupation: retired from [employer] Vitals/I&O/Wt Last Vital Signs Temp 98.6 F 07/12/23 15:36 Pulse 59 L 07/12/23 16:30 Resp 20 H 07/12/23 16:30 BP 130/50 07/12/23 16:30 Pulse Ox 96 07/12/23 16:30 O2 Del Method Room Air 07/12/23 16:18 Weight last 48 hrs Weight 200 lb Physical Exam Narrative: GENERAL: A&O x 3 VASCULAR: DP/PT pulses non palpable with dependent rubor to left foot. DERMATOLOGICAL: Dusky, erythematous changes to left 4th and 5th digits. Full thickness ulceration to lateral aspect of 4th digit in 4th interspace. Wound measures 0.8 x 0.8 x 0.2cm with 100% fibrotic/necrotic base. No malodor. Surrounding erythema with extensive maceration into 4th interspace. Blanching to plantar sulcus of 4th digit with concern for underlying abscess MUSCULOSKELETAL: pain with palpation of left foot 4th and 5th digits NEUROLOGICAL: Neurological sensation to the affected foot and ankle is present through L4-S1 dermatomes with no hyper/hypoesthesias, negative Tinel or Valleix's sign Data 07/12/23 15:13 07/12/23 15:13 Micro: Microbiology 07/12/23 16:20 Blood Culture - Preliminary Blood SPECIMEN COLLECTED 07/12/23 16:26 Blood Culture - Preliminary Blood SPECIMEN COLLECTED A&P Assessment and plan (1) Diabetic wet gangrene of the foot: (2) PVD (peripheral vascular disease): (3) Diabetes: (4) EZEQUIEL (acute kidney injury): Plan -Left foot 4th digit wet gangrene -WBC 16.5 -ESR 60 -CRP 204 -HR 86 -RR 20 -Temp: 98.6 -Cultures: Blood NGTD -Antibiotics: vanc/cefepime -NPO at midnight -Plan for OR tomorrow 07/13/23 for left foot 4th digit amputation with removal of all non viable tissue and bone -Continue IV abx -Patient has severe PAD. Procedure tomorrow is for source control. Patient will need further evaluation to ensure vascular optimization to heal amputation -Discharge plan: TBD Coding Level of Care Code Acute Code for g Fwd Diagnoses Diabetic wet gangrene of the foot E11.52 PVD (peripheral vascular disease) I73.9 Diabetes E11.9 EZEQUIEL (acute kidney injury) N17.9
[2023-07-12 19:49] LABS: Add Urine Microscopic? NO; Charge for UA Resulting for Rev
[2023-07-12 19:51] LABS: Bilirubin Urine Neg (Negative); Blood Urine Neg (Negative); Glucose Urine UA Trace (Normal); Ketones Urine Negative (Negative); Leukocyte Esterase Urine Negative (Negative); Nitrate Urine Negative (Negative); Protein Urine Neg (Negative); Specific Gravity, Urine 1.015 (1.005-1.030); Urine Appearance Clear (CLEAR); Urine Color Yellow (Yellow); Urobilinogen Urine Neg (Negative); pH Urine 5 (5-7)
[2023-07-12 20:04] LABS: Lactic Acid level (Lactate) 5.5 mmol/L (0.5-2.2)
[2023-07-12] MEDS: vancomycin 1,000 MG in sodium chloride 0.9% 250 ML 250 MG IV (20:26)
[2023-07-12] MEDS: lactulose oral liq 20 gm/30 mL UDC PO (21:47)
[2023-07-12] MEDS: duloxetine 60 mg Capsule PO (21:47)
[2023-07-12] MEDS: tamsulosin 0.4 mg Capsule 0.8 MG PO (21:47)
[2023-07-12] MEDS: sodium chloride 0.9% 1,000 ML 75 ML IV (21:47)
[2023-07-12 22:15] LABS: Glucose Point of Care 168 mg/dL (70-110)
[2023-07-12] MEDS: insulin lispro 100 unit/1 mL SUBCUT (22:23)
[2023-07-12] MEDS: cefepime 1,000 MG in sodium chloride 0.9% (plus) 50 ML 100 MG IV (22:25)
[2023-07-13] VITALS (14 sets, daily range): BP systolic 94–135; BP diastolic 39–70; PULSE 59–80; RESP 16–18; TEMP 36.1–36.6; O2SAT 93–100
[2023-07-13] MEDS: morphine IR 15 mg Tablet PO ×2 (01:35→16:54)
[2023-07-13 04:20] LABS: Basophils % 0.2 %; Eosinophils # 0.2 10^3/uL (0.0-0.8); Eosinophils % 1.7 %; Hematocrit 32.4 % (37-53); Lymphocytes # 0.8 10^3/uL (0.8-4.8); Mean Corpuscular HGB Conc 30.9 g/dL (30-55); Mean Corpuscular Hemoglobin 24.3 pg (27-33); Mean Corpuscular Volume 78.6 fl (82-101); Mean Platelet Volume 9.2 fL (7.4-10.4); Monocytes # 1.4 10^3/uL (0.2-0.9); Monocytes % 10.5 %; Neutrophils # 10.49 10^3/uL (1.8-7.7); Neutrophils % 81.1 %; Nucleated Red Blood Cells % 0 %; Platelet Count 314 10^3/cmm (157-399); Red Blood Count 4.12 10^6/uL (3.85-5.65); White Blood Count 12.94 10^3/uL (3.29-11.43)
[2023-07-13 04:36] LABS: Anion Gap 16.8 (5-19); C Reactive Protein 187.8 mg/L (0.0-4.9); Calcium 8.3 mg/dL (8.5-10.5); Carbon Dioxide 29 mmol/L (22-29); Chloride 91 mmol/L (98-107); Glucose 124 mg/dL (65-115); Magnesium 2.8 mg/dL (1.7-2.3); Osmolality Calculated 307 mOsm/kg (285-295); Sodium 134 mmol/L (136-145)
[2023-07-13 04:40] LABS: Blood Urea Nitrogen 91 mg/dL (8-23); Potassium 2.8 mmol/L (3.5-5.1)
[2023-07-13 04:53] LABS: Add RBC Morph No
[2023-07-13 04:54] LABS: Slide Review Slide Review Perform
[2023-07-13] MEDS: lidocaine 1% 5 ML in potassium chloride premix 100 ML 26.25 ML IV (05:02)
[2023-07-13] MEDS: zinc gluconate 50 mg Tablet PO (05:13)
[2023-07-13] MEDS: potassium chloride ER 20 mEq Tablet PO (05:13)
[2023-07-13] MEDS: carvedilol 3.125 mg Tablet PO (05:13)
[2023-07-13 06:32] LABS: Glucose Point of Care 147 mg/dL (70-110)
--- NOTE | 2023-07-13 06:53 | PC.NURSE ---
0645 - Dr Kan at [facility] side - block administered per doctor prior to OR - asaf well
[2023-07-13] MEDS: lidocaine 1% 5 ML in potassium chloride premix 100 ML 52.5 ML IV (08:53)
[2023-07-13] MEDS: sodium chloride 0.9% 1,000 ML 999 ML IV (08:54)
[2023-07-13 09:03] LABS: Lactate (Lactic Acid level) 1.2 mmol/L (0.5-2.2)
--- NOTE | 2023-07-13 09:36 | P.PN_ITS ---
Subjective Subjective: Creatinine improved Going for amputation around 10:30 AM No fever overnight Lactic acid improved this morning Vitals/I&O/Wt Last Vital Signs Temp 97.9 F 07/13/23 09:26 Pulse 63 07/13/23 09:26 Resp 16 07/13/23 09:26 BP 128/47 07/13/23 09:26 Pulse Ox 100 07/13/23 09:26 O2 Del Method Room Air 07/13/23 09:26 07/12/23 07/13/23 07/13/23 22:59 06:59 14:59 Intake Total 800 / 800 50 / 850 Output Total 300 / 300 1225 / 1525 600 / 600 Balance 500 / 500 -1175 / -675 -600 / -600 Weight last 48 hrs Weight 90.718 kg Physical Exam Narrative: Left fourth toe wet gangrene GCS 15 Nonfocal neuro exam Currently on room air Very hard of hearing Pleasant and cooperative GCS 15 Trace edema of lower extremity Skin is dry Hyperemia has not worsened on dorsal surface of left foot Urinary Catheter Management: Peoples: Cath Placed During This Visit: yes Reason for Continuing Indwelling Catheter: Other Urinary Catheter Date of Insertion: 07/12/23 Urinary Catheter Time of Insertion: 23:01 Data 07/13/23 04:06 07/13/23 04:06 Micro: Microbiology 07/12/23 16:20 Blood Culture - Preliminary Blood SPECIMEN COLLECTED 07/12/23 16:26 Blood Culture - Preliminary Blood SPECIMEN COLLECTED A&P Assessment and plan (1) Diabetic wet gangrene of the foot: (2) EZEQUIEL (acute kidney injury): (3) Diabetes: (4) Non-pressure chronic ulcer of other part of left foot with fat layer exposed: (5) Cardiomyopathy: (6) EZEQUIEL (acute kidney injury): (7) Bradycardia: (8) Aortic valve disease: Plan Wet gangrene left fourth toe Planning for amputation today Continue broad-spectrum antibiotics avoid nephrotoxic agents Currently patient is on vancomycin, cefepime and clindamycin EZEUQIEL postrenal, BPH related Creatinine improving with IV fluid hydration and after insertion of Peoples catheter Monitor creatinine and potassium no active signs of acidosis Type 2 diabetes We will continue insulin with sliding scale after surgery After surgery patient will get consistent carb diet with sliding scale and insul in Continue opioids and bowel regimen History of cardiomyopathy, hold diuretics for now, gentle fluid hydration Lactic acidemia likely type II related to medication Full code Attestations Medical Necessity Statement*: Continue medical management Diagnoses Diabetic wet gangrene of the foot E11.52 EZEQUIEL (acute kidney injury) N17.9 Diabetes E11.9 Non-pressure chronic ulcer of other part of left foot with fat layer exposed L97.522 Cardiomyopathy I42.9 Bradycardia R00.1 Aortic valve disease I35.9
--- NOTE | 2023-07-13 10:35 | W.PM.OPSUD ---
Surgery/Procedure H&P Update DATE OF PROCEDURE: July 13, 2023 DATE H&P PERFORMED: 07/12/23 CHANGES TO PREVIOUS DOCUMENTATION: New clinical findings of abscess formation plantar aspect left foot at the distal medial longitudinal arch under the second tarsometatarsal joint articulation. Patient will need to undergo fourth digit amputation of left foot as well as incision and drainage plantar aspect left foot. This was updated on the consent and discussed with the patient in detail. All patient questions answered to patient's satisfaction PLANNED PROCEDURE: Operation Date: 07/13/23 10:50 Proposed Procedures p Amputation Toe/s- 4th digit(Left) - Flynn Collier DPM
--- NOTE | 2023-07-13 10:40 | ANES.PREANE2 ---
Pre-Anesthetic Assessment Height/Weight: Height 1.78 m Weight 90.718 kg Temp Pulse Resp BP Pulse Ox O2 Del Method 97.9 F 63 16 128/47 100 Room Air 07/13/23 09:26 07/13/23 09:26 07/13/23 09:26 07/13/23 09:26 07/13/23 09:26 07/13/23 09:26 Operation Date: 07/13/23 10:50 Proposed Procedures p Amputation Toe/s- 4th digit(Left) - Flynn Collier DPM Familial anesthetic complications: none Was Beta Nell taken within 24 hours: N/A Was Clonidine taken within 24 hours: N/A Last intake: Intake Last Liquid Date 07/12/23 Last Solid Date 07/12/23 Social No alcohol and No tobacco Exam alert and oriented x 3 Airway Submandibular: within normal limits Cervical ROM: within normal limits Mallampati: Class II Dentition: false History/ROS No significant history except as noted Pulmonary None reported CV/HEM Atrial Fibrillation, Congestive Heart Failure, Hypertension and Peripheral Vascular Disease AVR 10 years ago None reported Hepatic None reported GI None reported Metabolic Diabetes Mellitus and Hyperlipidemia [facility] [place] None reported Neuropsych None reported Anesthetic Plan ASA status: 3 Anesthesia: Anesthesia Evaluation, General and MAC Medications/Allergies Home Medications Medication Instructions Recorded Confirmed Last Taken Type duloxetine 60 mg capsule,delayed 60 mg PO BEDTIME 02/22/20 07/12/23 07/11/23 History release (Cymbalta) tamsulosin 0.4 mg capsule (Flomax) 0.8 mg PO BEDTIME 02/22/20 07/12/23 07/11/23 History empagliflozin 25 mg tablet 25 mg PO QAM 05/06/21 07/12/23 07/12/23 History (Jardiance) multivitamin 1 tab PO QAM 05/06/21 07/12/23 07/11/23 History cholecalciferol (vitamin D3) 25 25 mcg PO QAM 08/01/21 07/12/23 07/11/23 History mcg (1,000 unit) capsule flash glucose sensor (FreeStyle #1 ea 05/01/22 07/12/23 10/11/22 History Marisela 14 Day Sensor kit) insulin aspart U-100 100 unit/mL 15 - 25 unit SUBCUT AC 05/30/22 07/12/23 07/11/23 History subcutaneous cartridge (Novolog PenFill U-100 Insulin aspart) brimonidine 0.2 %-timolol 0.5 % 1 drp ophthalmic (eye) BID 08/27/22 07/12/23 07/11/23 History eye drops (Combigan) ketoconazole 2 % topical cream 1 applic topical BID PRN scaly 08/27/22 07/12/23 10/11/22 History areas on face zinc acetate 50 mg (zinc) capsule 50 mg PO QAM 08/27/22 07/12/23 07/11/23 History sertraline 50 mg tablet 50 mg PO QAM 11/14/22 07/12/23 07/11/23 History Diabetic shoes with 3 pair of #1 ea 11/28/22 07/12/23 Unknown Rx inserts potassium chloride 20 mEq 20 meq PO QAM #90 tabs 02/04/23 07/12/23 07/11/23 Rx tablet,extended release losartan 50 mg tablet 50 mg PO QAM #90 tabs 02/06/23 07/12/23 07/11/23 Rx bumetanide 1 mg tablet 1 mg PO BID 05/15/23 07/12/23 07/11/23 History carvedilol 3.125 mg tablet (Coreg) 3.125 mg PO QAM 07/12/23 07/12/23 07/11/23 History ciprofloxacin HCl 500 mg tablet 500 mg PO BID #20 tabs 07/12/23 07/12/23 07/11/23 Rx insulin degludec 200 unit/mL (3 30 unit SUBCUT BEDTIME PRN blood 07/12/23 07/12/23 Unknown History mL) subcutaneous pen (Tresiba sugar FlexTouch U-200 insulin) linezolid 600 mg tablet 600 mg PO BID #20 tabs 07/12/23 07/12/23 07/11/23 Rx metolazone 5 mg tablet 5 mg PO QAM 07/12/23 07/12/23 07/11/23 History Allergies Allergy/AdvReac Type Severity Reaction Status Date / Time No Known Allergies Allergy Verified 07/12/23 15:48 Current Medications Generic Name Dose Route Start Last Admin Trade Name Freq PRN Reason Stop Dose Admin Carvedilol 3.125 mg 07/13/23 06:00 07/13/23 05:13 Carvedilol 3.125 Mg Tablet PO 3.125 mg QAM JYOTI Administration Duloxetine HCl 60 mg 07/12/23 21:18 07/12/23 21:47 Duloxetine 60 Mg Capsule PO 60 mg BEDTIME JYOTI Administration Vancomycin HCl 1,000 mg/ 250 mls @ 250 mls/hr 07/12/23 18:00 07/12/23 21:52 Sodium Chloride IV Infused Q36H JYOTI Infusion Sodium Chloride 1,000 mls @ 75 mls/hr 07/12/23 21:18 07/12/23 21:47 Sodium Chloride 0.9% IV 75 mls/hr .[id number] JYOTI Administration Cefepime HCl 1,000 mg/ Sodium 50 mls @ 100 mls/hr 07/12/23 22:00 07/12/23 23:03 Chloride IV Infused Q24H JYOTI Infusion Insulin Human Lispro 0 unit 07/12/23 21:18 07/13/23 07:52 Insulin Lispro 100 Unit/1 Ml SUBCUT Not Given TIDWM [facility] Protocol Morphine Sulfate 15 mg 07/12/23 21:18 07/13/23 01:35 Morphine Ir 15 Mg Tablet PO 15 mg Q6H PRN Administration pAIN Senna/Docusate Sodium 1 tab 07/13/23 09:00 07/13/23 09:00 Sennosides-Docusate Tablet PO Not Given DAILY [facility] Tamsulosin HCl 0.8 mg 07/12/23 21:18 07/12/23 21:47 Tamsulosin 0.4 Mg Capsule PO 0.8 mg BEDTIME JYOTI Administration Zinc Gluconate 50 mg 07/13/23 06:00 07/13/23 05:13 Zinc Gluconate 50 Mg Tablet PO 50 mg QAM JYOTI Administration [facility] Anesthesia Medical History Acute hypokalemia Anticoagulation adequate with anticoagulant therapy Xarelto Atrial fibrillation Paroxysmal Benign prostatic hyperplasia Chronic anticoagulation Xarelto Congestive heart failure Diabetes 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 mellitus Dyslipidemia Gangrene History of nonmelanoma skin cancer HTN (hypertension) Hypertensive urgency MSSA (methicillin susceptible Staphylococcus aureus) infection NSTEMI (non-ST elevated myocardial infarction) Obesity Osteomyelitis of toe of left foot Peripheral arterial disease PVD (peripheral vascular disease) 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 on 07/21/2021 TIA (transient ischemic attack) Varicose vein of leg Surgical History S/P AVR (aortic valve replacement) Bioprosthetic, bovine S/P cataract extraction S/P cholecystectomy Family History Father Diabetes Hypertension Grandfather Diabetes PATERNAL Hypertension PATERNAL Social History Smoking and tobacco status: former smoker Alcohol intake: former Substance/Drug Use: never Marital status: / service: No Current occupational status: retired Current occupation: retired from [employer] Anesthesia 07/13/23 04:06 07/13/23 04:06 Short CBC 07/12/23 07/13/23 Range/Units 15:13 04:06 WBC 16.50 H 12.94 H (3.29-11.43) 10^3/uL Hgb 11.10 L 10.00 L (11.27-16.99) g/dL Hct 35.8 L 32.4 L (37-53) % MCV 79.9 L 78.6 L (82-101) fl Plt Count 332 314 (157-399) 10^3/cmm Neut % (Auto) 86.8 81.1 % Neut # (Auto) 14.32 H 10.49 H (1.8-7.7) 10^3/uL BMP 07/12/23 07/13/23 15:13 04:06 Sodium 133 L 134 L Potassium 3.2 L 2.8 L* Chloride 84 L 91 L Carbon Dioxide 29 29 BUN 97 H* D 91 H* Creatinine 3.8 H 3.3 H Glucose 60 L 124 H Calcium 9.1 8.3 L Cardiac Enzymes 07/12/23 Range/Units 15:13 NT-Pro-B Natriuret Pep 6373 H (0-125) pg/mL Liver Function 07/12/23 Range/Units 15:13 Total Bilirubin 0.5 (0.15-1.2) mg/dL AST 37 (0-40) U/L ALT 22 (0-41) U/L Alkaline Phosphatase 103 (40-130) U/L Albumin 4.0 (3.5-5.2) g/dL Urine 07/12/23 Range/Units 19:30 Urine Color Yellow (Yellow) Urine Appearance Clear (CLEAR) Urine pH 5 (5-7) Ur Specific [place] 1.015 (1.005-1.030) Urine Protein Neg (Negative) Urine Glucose (UA) Trace H (Normal) Urine Ketones Negative (Negative) Urine Nitrate Negative (Negative) Urine Bilirubin Neg (Negative) Ur Leukocyte Esterase Negative (Negative) Coags 07/12/23 07/12/23 07/13/23 15:13 15:13 04:06 ESR 60 H C-Reactive Protein 204.0 H 187.8 H Microbiology 07/12/23 16:20 Blood Culture - Preliminary Blood SPECIMEN COLLECTED 07/12/23 16:26 Blood Culture - Preliminary Blood SPECIMEN COLLECTED Cardiac Studies: Echocardiogram 05/30/23 Echocardiogram Ultrasound 07/05/20 Transesophageal Echocardiogram 10/12/22 Sestamibi Stress Test (Cardiology) 01/03/23
[2023-07-13] MEDS: BUPivacaine 0.5% INJ 30 mL INJECTION (11:08)
--- NOTE | 2023-07-13 11:46 | PM.OP ---
Operative Report Date of procedure: July 13, 2023 Pre-op diagnosis: Gangrene left foot Post-op diagnosis: Same Post-op findings: Gangrene left foot fourth digit with secondary abscess and plantar medial longitudinal arch Procedure done: 1. Left foot fourth digit amputation CPT 68280 2. Left foot medial longitudinal arch incision and drainage CPT 29646-64 Specimens removed/disposition: Fourth toe left foot sent as surgical specimen. Cultures both aerobic and anaerobic Surgeon: Flynn Collier DPM Estimated blood loss: 5 cc Complications: None Findings: See above Procedure: Patient is a 73-year-old male that has a history of left foot fourth digit gangrene. The patient has had the aforementioned chief complaint for some time. Conservative treatment measures have been attempted including outpatient wound care and outpatient antibiotics which have both failed. the patient has opted for surgical intervention at this time. A lengthy discussion regarding the procedure, including risks and complications has been had with the patient and is noted in the recent clinic note. Written and verbal consent have been obtained. All patient questions have been answered to the patient?s satisfaction. No written or verbal guarantees have been given or implied. The patient has been NPO since midnight. The history has been reviewed and the history and physical is current. The signed consent was confirmed and placed in the patient chart. Patient imaging has been reviewed and is consistent with the diagnosis. Under mild sedation, the patient was brought into the operating room and left on the gurney in the supine position. Patient is receiving IV antibiotics [id number] on the floor. IV sedation was then performed by the anesthesiateam. The extremity was then prepped and draped in the usual fashion. After prep, the following procedure was then performed. Attention was directed to the left foot where a penetrating towel clamp was used to penetrate the fourth digit. A racquet style incision was made full-thickness down to the level of the metatarsophalangeal joint using a #15 blade. There was noted to be immediate release of purulence from the metatarsophalangeal joint. The fourth digit was disarticulated and passed from the operative field to be sent a specimen. A rongeur was used to remove devitalized tissue in this area. Cultures both aerobic and anaerobic were taken at the site of this abscess. The site was evaluated and there was noted to be devitalized tissue circumferentially surrounding the fourth metatarsal head and neck. This was removed using a rongeur. A Young Harris was used to inspect for tracking. There was noted to be tracking from the fourth metatarsal phalangeal joint proximal medially towards the medial longitudinal arch. On inspection of the plantar aspect of the left foot there was noted to be an accumulation of fluctuant tissue within the medial longitudinal arch with a centralized area of discoloration. A #15 blade was used to make an incision overlying this area. Upon incising the area there was noted to be purulence accumulated in this area. Mosquito hemostat was used to bluntly dissect this area. It was noted to be surrounding the plantar fascia at the level of the distal medial longitudinal arch. Devitalized tissue was removed using a rongeur. Next, 3000 cc of sterile saline was used to irrigate both the amputation site and the incision and drainage site using pulse lavage. After pulse lavage, both the amputation site and incision and drainage site were packed using quarter inch iodoform packing gauze. Hemostasis was noted to be achieved. The sites were then dressed with 4 x 4 gauze, ABD pad, Kerlix, Benoit bandage. The fifth digit was noted to be dusky in coloration. Both preoperatively and postoperatively. The patient tolerated the procedure and anesthesia well and without complication. The patient was transported from the operating room to the recovery room with vital signs stable and vascular status intact to digits 1 through 3 of the left foot. The fifth digit showed persistent dusky changes. Foot. The patient was instructed to remain nonweightbearing to the operative extremity, to keep surgical dressing clean, dry and intact. The patient will be transferred back to the floor once anesthesia criteria is met. I will continue to round on and follow the patient in the inpatientsetting and provide recommendations to stabilize the patient for discharge. Based on intraoperative findings, patient will require 6 weeks of IV antibiotics through PICC line for septic joint of fourth metatarsophalangeal joint and osteomyelitis. Wounds were packed open today. Depending on clinical progression, patient may return to the operating room in the coming days for delayed primary closure.
[2023-07-13 13:51] LABS: Glucose Point of Care 182 mg/dL (70-110)
[2023-07-13] MEDS: sodium chloride 0.9% 1,000 ML 75 ML IV (16:55)
[2023-07-13] MEDS: heparin 5,000 unit/mL INJ 1 mL 5000 UNIT SUBCUT (20:21)
[2023-07-13] MEDS: duloxetine 60 mg Capsule PO (20:21)
[2023-07-13] MEDS: tamsulosin 0.4 mg Capsule 0.8 MG PO (20:21)
[2023-07-13 20:30] LABS: Glucose Point of Care 360 mg/dL (70-110)
[2023-07-13] MEDS: insulin glargine 100 units/1 mL 20 UNIT SUBCUT (21:15)
[2023-07-13] MEDS: morphine 4 mg/mL SDV 1 mL 2 MG IVP (21:43)
[2023-07-13] MEDS: cefepime 1,000 MG in sodium chloride 0.9% (plus) 50 ML 100 MG IV (21:51)
--- NOTE | 2023-07-13 22:25 | PC.NURSE ---
PT has became confused tonight, pt has expressed concerns that his pain has not been controlled as well. Dr. Copeland has been contacted and orders have been received and administered to the pt (see MAR). The pt had a bag of home meds at bedside and this nurse let the pt know that for his safety they will be placed in the pyxis machine. The meds were documented and confirmed with CRISTELA ervin charge nurse and placed in the pyxis. staffing program manager has been placed in the room for the pts safety and newfound confusion. This nurse also explained all of the meds the pt has received jason and he did verbalized understanding. Also noted when questioning the pt, he did state I feel a little hazy and confused This nurse educated the pt that this could be from the surgery today.
[2023-07-14] VITALS (8 sets, daily range): BP systolic 101–143; BP diastolic 39–70; PULSE 54–74; RESP 15–18; TEMP 36.4–36.9; O2SAT 91–99
[2023-07-14] MEDS: vancomycin 1,000 MG in sodium chloride 0.9% 250 ML 250 MG IV (05:40)
[2023-07-14] MEDS: zinc gluconate 50 mg Tablet PO (05:42)
[2023-07-14] MEDS: carvedilol 3.125 mg Tablet PO (05:42)
[2023-07-14 05:51] LABS: Basophils % 0.2 %; Eosinophils # 0.1 10^3/uL (0.0-0.8); Eosinophils % 0.5 %; Hematocrit 32.4 % (37-53); Lymphocytes # 0.5 10^3/uL (0.8-4.8); Lymphocytes % 3.1 %; Mean Corpuscular HGB Conc 30.6 g/dL (30-55); Mean Corpuscular Hemoglobin 24.5 pg (27-33); Mean Corpuscular Volume 80.2 fl (82-101); Monocytes # 1.3 10^3/uL (0.2-0.9); Monocytes % 8.1 %; Neutrophils # 14.18 10^3/uL (1.8-7.7); Neutrophils % 87.7 %; Nucleated Red Blood Cells % 0 %; Platelet Count 297 10^3/cmm (157-399); Red Blood Count 4.04 10^6/uL (3.85-5.65); White Blood Count 16.17 10^3/uL (3.29-11.43)
[2023-07-14 06:12] LABS: Magnesium 2.7 mg/dL (1.7-2.3)
[2023-07-14 06:18] LABS: Anion Gap 14.5 (5-19); Blood Urea Nitrogen 71 mg/dL (8-23); Calcium 8.1 mg/dL (8.5-10.5); Carbon Dioxide 28 mmol/L (22-29); Chloride 100 mmol/L (98-107); Glucose 193 mg/dL (65-115); Osmolality Calculated 314 mOsm/kg (285-295); Potassium 3.5 mmol/L (3.5-5.1); Sodium 139 mmol/L (136-145)
[2023-07-14 06:25] LABS: Slide Review Slide Review Perform
[2023-07-14 06:42] LABS: Glucose Point of Care 216 mg/dL (70-110)
[2023-07-14] MEDS: morphine IR 15 mg Tablet PO ×2 (08:44→17:26)
[2023-07-14] MEDS: heparin 5,000 unit/mL INJ 1 mL 5000 UNIT SUBCUT (08:45)
[2023-07-14] MEDS: insulin lispro 100 unit/1 mL SUBCUT ×2 (08:45→12:19)
--- NOTE | 2023-07-14 08:46 | PM.PN ---
Subjective Subjective: Patient seen at bedside this morning. Endorses pain to left foot. However, this is controlled. Vitals/I&O/Wt Last Vital Signs Temp 97.6 F 07/14/23 08:00 Pulse 54 L 07/14/23 08:00 Resp 18 07/14/23 08:44 BP 126/70 07/14/23 08:00 Pulse Ox 97 07/14/23 08:00 O2 Del Method Nasal Cannula 07/14/23 08:00 O2 Flow Rate 6 07/13/23 12:05 07/13/23 07/14/23 07/14/23 22:59 06:59 14:59 Intake Total 650 / 1650 240 / 240 Output Total 1000 / 1605 601 / 2206 Balance -350 / 45 -601 / -556 240 / 240 Weight last 48 hrs Weight 200 lb Physical Exam Narrative: GENERAL: A&O x 3 VASCULAR: DP/PT pulses non palpable with dependent rubor to left foot. DERMATOLOGICAL: Dusky, changes to left fifth digit. Fourth digit amputation site appears stable. No active purulence. No purulence from plantar aspect left foot at incision site. Surrounding erythema persists. MUSCULOSKELETAL: Pain with palpation of plantar left foot giuseppe-incisional area NEUROLOGICAL: Neurological sensation to the affected foot and ankle is present through L4-S1 dermatomes with no hyper/hypoesthesias, negative Tinel or Valleix's sign Urinary Catheter Management: Peoples: Cath Placed During This Visit: yes Reason for Continuing Indwelling Catheter: Other Urinary Catheter Date of Insertion: 07/12/23 Urinary Catheter Time of Insertion: 23:01 Data 07/14/23 05:27 07/14/23 05:27 Micro: Microbiology 07/12/23 16:20 Blood Culture - Preliminary Blood NEGATIVE TO DATE 07/12/23 16:26 Blood Culture - Preliminary Blood NEGATIVE TO DATE 07/13/23 11:28 Gram Stain - Final Toe - #1 A&P Assessment and plan (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 I will evaluate for clinical improvement -Continue IV abx -Patient has severe PAD. Procedure tomorrow is for source control. Patient will need further evaluation to ensure vascular optimization to heal amputation -Nonweightbearing to left lower extremity except for transfers -Podiatry will perform daily dressing changes at bedside -Discharge plan: Recommend PICC line placement and long-term IV antibiotics given intraoperative findings Attestations Medical Necessity Statement*: Left foot infection that required incision and drainage. Patient will need to return to the operating room in the coming days for repeat debridement versus partial fourth and fifth ray resection Coding Level of Care Code Acute Code for [facility] Fwd Diagnoses Diabetic wet gangrene of the foot E11.52 PVD (peripheral vascular disease) I73.9 Diabetes E11.9 EZEQUIEL (acute kidney injury) N17.9
[2023-07-14] MEDS: sennosides-docusate Tablet 1 TAB PO (09:14)
[2023-07-14] MEDS: sodium chloride 0.9% 1,000 ML 75 ML IV ×2 (09:14→09:15)
--- NOTE | 2023-07-14 10:47 | P.PN_ITS ---
Subjective Subjective: Patient resting comfortably Leukocytosis without fever Cultures sent from the OR yesterday Cultures are negative to date, Vitals/I&O/Wt Last Vital Signs Temp 97.6 F 07/14/23 08:00 Pulse 54 L 07/14/23 08:00 Resp 18 07/14/23 08:44 BP 126/70 07/14/23 08:00 Pulse Ox 94 07/14/23 08:00 O2 Del Method Room Air 07/14/23 08:00 O2 Flow Rate 6 07/13/23 12:05 07/13/23 07/14/23 07/14/23 22:59 06:59 14:59 Intake Total 650 / 1650 1000 / 2650 491.25 / 491.25 Output Total 1000 / 1605 601 / 2206 Balance -350 / 45 399 / 444 491.25 / 491.25 Weight last 48 hrs Weight 90.718 kg Physical Exam Narrative: Left foot covered in dressing Patient is awake and alert Laying supine In good spirits No confusion Nonfocal neuro exam Very hard of hearing S1, S2 Currently on room air Urinary Catheter Management: Peoples: Cath Placed During This Visit: yes Reason for Continuing Indwelling Catheter: Other Urinary Catheter Date of Insertion: 07/12/23 Urinary Catheter Time of Insertion: 23:01 Data 07/14/23 05:27 07/14/23 05:27 Micro: Microbiology 07/12/23 16:20 Blood Culture - Preliminary Blood NEGATIVE TO DATE 07/12/23 16:26 Blood Culture - Preliminary Blood NEGATIVE TO DATE 07/13/23 11:28 Gram Stain - Final Toe - #1 A&P Assessment and plan (1) Diabetic wet gangrene of the foot: (2) EZEQUIEL (acute kidney injury): (3) Diabetes: (4) Dyslipidemia: (5) Obesity: (6) Benign prostatic hyperplasia: Qualifiers: Lower urinary tract symptom presence: unspecified whether lower urinary tract symptoms present Qualified Code(s): N40.0 - Benign prostatic hyperplasia without lower urinary tract symptoms (7) Atrial fibrillation: Qualifiers: Atrial fibrillation type: longstanding persistent Qualified Code(s): I48.11 - Longstanding persistent atrial fibrillation (8) PVD (peripheral vascular disease): Plan Wet gangrene left foot Status post left fourth digit amputation and incision and drainage medial left medial longitudinal arch Continue broad-spectrum antibiotics patient has been afebrile Cultures negative Reevaluate tomorrow by podiatry to decide on further plan whether patient will need partial resection versus delayed primary closure Will request for PICC line placement final antibiotics decision will be made after culture report. Patient will need intermediate placement EZEQUIEL, postrenal: Continue Peoples catheter, creatinine improving Disposition: We will need intermediate placement Type 2 diabetes continue Lantus and sliding scale We may hold Lantus for tonight for surgery tomorrow Attestations Medical Necessity Statement*: Continue medical management Diagnoses Diabetic wet gangrene of the foot E11.52 EZEQUIEL (acute kidney injury) N17.9 Diabetes E11.9 Dyslipidemia E78.5 Obesity E66.9 Benign prostatic hyperplasia N40.0 Lower urinary tract symptom presence: unspecified whether lower urinary tract symptoms present Atrial fibrillation I48.11 Atrial fibrillation type: longstanding persistent PVD (peripheral vascular disease) I73.9
[2023-07-14 11:37] LABS: Glucose Point of Care 214 mg/dL (70-110)
[2023-07-14 17:02] LABS: Glucose Point of Care 112 mg/dL (70-110)
[2023-07-14] MEDS: insulin glargine 100 units/1 mL 20 UNIT SUBCUT (20:03)
[2023-07-14] MEDS: tamsulosin 0.4 mg Capsule 0.8 MG PO (20:04)
[2023-07-14] MEDS: duloxetine 60 mg Capsule PO (20:04)
[2023-07-14 20:06] LABS: Glucose Point of Care 153 mg/dL (70-110)
[2023-07-14] MEDS: cefepime 1,000 MG in sodium chloride 0.9% (plus) 50 ML 100 MG IV (22:05)
[2023-07-15] VITALS (11 sets, daily range): BP systolic 113–161; BP diastolic 44–64; PULSE 60–87; RESP 15–17; TEMP 36.4–37.1; O2SAT 92–98
[2023-07-15 00:09] LABS: Glucose Point of Care 168 mg/dL (70-110)
[2023-07-15] MEDS: morphine IR 15 mg Tablet PO ×2 (01:07→13:14)
[2023-07-15 04:37] LABS: Basophils # 0.1 10^3/uL (0.0-0.1); Basophils % 0.4 %; Eosinophils # 0.3 10^3/uL (0.0-0.8); Eosinophils % 2.2 %; Hematocrit 32.6 % (37-53); Lymphocytes # 0.7 10^3/uL (0.8-4.8); Lymphocytes % 4.8 %; Mean Corpuscular HGB Conc 30.1 g/dL (30-55); Mean Corpuscular Hemoglobin 24.4 pg (27-33); Mean Corpuscular Volume 81.1 fl (82-101); Mean Platelet Volume 9.1 fL (7.4-10.4); Monocytes # 1.1 10^3/uL (0.2-0.9); Monocytes % 7.9 %; Neutrophils # 11.89 10^3/uL (1.8-7.7); Neutrophils % 84.3 %; Nucleated Red Blood Cells % 0 %; Platelet Count 309 10^3/cmm (157-399); Red Blood Count 4.02 10^6/uL (3.85-5.65); White Blood Count 14.08 10^3/uL (3.29-11.43)
[2023-07-15 04:55] LABS: Anion Gap 11.3 (5-19); Blood Urea Nitrogen 55 mg/dL (8-23); Calcium 8.5 mg/dL (8.5-10.5); Carbon Dioxide 30 mmol/L (22-29); Chloride 94 mmol/L (98-107); Glucose 157 mg/dL (65-115); Osmolality Calculated 292 mOsm/kg (285-295); Potassium 3.3 mmol/L (3.5-5.1); Sodium 132 mmol/L (136-145)
[2023-07-15 05:07] LABS: Add RBC Morph Yes; Slide Review Slide Review Perform
[2023-07-15 05:08] LABS: Anisocytosis 1+; Dimorphic RBC 2+; Hypochromasia 2+; RBC Morph Comp No
[2023-07-15] MEDS: carvedilol 3.125 mg Tablet PO (05:15)
[2023-07-15] MEDS: zinc gluconate 50 mg Tablet PO (05:15)
[2023-07-15] MEDS: vancomycin 1,000 MG in sodium chloride 0.9% 250 ML 250 MG IV (05:16)
[2023-07-15 06:42] LABS: Glucose Point of Care 145 mg/dL (70-110)
--- NOTE | 2023-07-15 07:02 | PM.PN ---
Subjective Subjective: Patient seen at bedside this morning. Resting comfortably. States the pain is improved. Vitals/I&O/Wt Last Vital Signs Temp 98.7 F 07/15/23 04:00 Pulse 60 07/15/23 04:00 Resp 15 07/15/23 04:00 BP 113/44 07/15/23 04:00 Pulse Ox 92 07/15/23 04:00 O2 Del Method Room Air 07/15/23 04:00 O2 Flow Rate 6 07/13/23 12:05 07/14/23 07/15/23 07/15/23 22:59 06:59 14:59 Intake Total 1278.75 / 2010.00 300 / 2310.00 Output Total 1500 / 1500 800 / 2300 Balance -221.25 / 510.00 -500 / 10.00 Physical Exam Narrative: GENERAL: A&O x 3 VASCULAR: DP/PT pulses non palpable with dependent rubor to left foot. DERMATOLOGICAL: Dusky, changes to left fifth digit. Fourth digit amputation site appears stable. No active purulence. No purulence from plantar aspect left foot at incision site. Surrounding erythema persists. Plantar necrosis to fifth digit into the plantar sulcus MUSCULOSKELETAL: Pain with palpation of plantar left foot giuseppe-incisional area NEUROLOGICAL: Neurological sensation to the affected foot and ankle is present through L4-S1 dermatomes with no hyper/hypoesthesias, negative Tinel or Valleix's sign Urinary Catheter Management: Peoples: Cath Placed During This Visit: yes Reason for Continuing Indwelling Catheter: Other Urinary Catheter Date of Insertion: 07/12/23 Urinary Catheter Time of Insertion: 23:01 Data 07/15/23 04:16 07/15/23 04:16 Micro: Microbiology 07/13/23 11:28 Gram Stain - Final Toe - #1 Wound Culture - Preliminary A&P Assessment and plan (1) Diabetic wet gangrene of the foot: (2) PVD (peripheral vascular disease): (3) Diabetes: (4) EZEQUIEL (acute kidney injury): Plan -Left foot 4th digit wet gangrene -WBC 14.1 -ESR 60 -CRP 204 VSS -Cultures: Blood NGTD, wound NGTD -Antibiotics: vanc/cefepime -N.p.o. at midnight -Plan for return to OR tomorrow 07/16/2023 at 7 AM for left foot partial fourth and fifth ray resection and wound closure. -Continue IV abx -Patient has severe PAD. -Nonweightbearing to left lower extremity except for transfers -Podiatry will perform daily dressing changes at bedside -Discharge plan: Recommend PICC line placement and long-term IV antibiotics given intraoperative findings. Patient will need to be discharged to half-way Attestations Medical Necessity Statement*: Wet gangrene left foot necessitating surgical debridement, PICC line placement Coding Level of Care Code Acute Code for [facility] Fwd Diagnoses Diabetic wet gangrene of the foot E11.52 PVD (peripheral vascular disease) I73.9 Diabetes E11.9 EZEQUIEL (acute kidney injury) N17.9
[2023-07-15] MEDS: sennosides-docusate Tablet 1 TAB PO (08:01)
--- NOTE | 2023-07-15 10:29 | PM.PN ---
Subjective Subjective: Patient does not need supervision Supervision discontinued No overnight events No active pain Dr. Collier did tell me about his recommendations this morning BMP after midnight He can eat today, his DVT prophylaxis on hold, cultures are pending, afebrile Urine output has improved Creatinine improving Vitals/I&O/Wt Last Vital Signs Temp 98.6 F 07/15/23 07:43 Pulse 60 07/15/23 08:00 Resp 16 07/15/23 08:00 BP 133/64 07/15/23 07:43 Pulse Ox 93 07/15/23 08:00 O2 Del Method Room Air 07/15/23 08:00 O2 Flow Rate 6 07/13/23 12:05 07/14/23 07/15/23 07/15/23 22:59 06:59 14:59 Intake Total 1278.75 / 2010.00 300 / 2310.00 Output Total 1500 / 1500 800 / 2300 Balance -221.25 / 510.00 -500 / 10.00 Physical Exam Narrative: Awake and alert Euvolemic Left foot covered in dressing, dressing has mild bleeding signs Patient is very pleasant and cooperative Hard of hearing Currently on room air Hemodynamically stable S1, S2 Nonfocal neuro exam Urinary Catheter Management: Peoples: Cath Placed During This Visit: yes Reason for Continuing Indwelling Catheter: Other Urinary Catheter Date of Insertion: 07/12/23 Urinary Catheter Time of Insertion: 23:01 Data 07/15/23 04:16 07/15/23 04:16 Micro: Microbiology 07/13/23 11:28 Gram Stain - Final Toe - #1 Wound Culture - Preliminary A&P Assessment and plan (1) Diabetic wet gangrene of the foot: (2) EZEQUIEL (acute kidney injury): (3) Diabetes: (4) Atrial fibrillation: Qualifiers: Atrial fibrillation type: longstanding persistent Qualified Code(s): I48.11 - Longstanding persistent atrial fibrillation (5) Benign prostatic hyperplasia: Qualifiers: Lower urinary tract symptom presence: unspecified whether lower urinary tract symptoms present Qualified Code(s): N40.0 - Benign prostatic hyperplasia without lower urinary tract symptoms (6) Obesity: (7) EZEQUIEL (acute kidney injury): Plan Gangrene left foot Status post intervention Plan for for left foot partial fourth and fifth ray resection and wound closure. Continue vancomycin and cefepime Leukocytosis around 14,000 Afebrile Blood cultures and cultures from the OR negative to date, wound culture which was sent by Dr. Meadows showed polymicrobial infection Post renal EZEQUIEL: Improving with better diuresis every day Added tamsulosin Patient will keep Peoples catheter in Will need voiding trial before discharge Patient is diabetic with history of peripheral arterial disease Continue insulin with sliding scale No active signs of vascular ischemic changes Patient will need PICC line placement and antibiotics will be decided once we see final culture report We will request PICC line placement today Full code N.p.o. after midnight Patient lives alone, will need skilled nursing placement Attestations Medical Necessity Statement*: Continue medical management Diagnoses Diabetic wet gangrene of the foot E11.52 EZEQUIEL (acute kidney injury) N17.9 Diabetes E11.9 Atrial fibrillation I48.11 Atrial fibrillation type: longstanding persistent Benign prostatic hyperplasia N40.0 Lower urinary tract symptom presence: unspecified whether lower urinary tract symptoms present Obesity E66.9
[2023-07-15 11:20] LABS: Glucose Point of Care 148 mg/dL (70-110)
--- NOTE | 2023-07-15 11:59 | XR_ITS ---
WS: [id number] PORTABLE CHEST HISTORY: Post PICC insertion COMPARISON: 08/31/2022 Right-sided PICC line is present with tip in the SVC caval junction. Lung volumes are decreased. Mild congestion. No pleural effusion or pneumothorax. Cardiac size: Mildly enlarged cardiac silhouette. Size is exacerbated by marked lordotic positioning. Mediastinum/Aorta: Prior CABG and valve replacement. No osseous abnormality seen. IMPRESSION: Satisfactory positioning of the RIGHT PICC line.
--- NOTE | 2023-07-15 12:40 | PC.NURSE ---
Single lumen PICC placed to right basilic vein. Referred for PICC placement for IV antibiotics x 6 weeks. Risks and benefits discussed and informed consent obtained from patient. Right arm assessed with right basilic vein measuring 4.3 mm, straight, and apparent best choice for placement. Using sterile technique and MST, right basilic vein accessed x 1 stick. Mid-arm circumference measured 10 cm from right AC 30 cm. Trimmed cath 43 cm with 0 cm external length noted. CXR shows tip in SVC, cavoatrial junction, in good position for use per radiologist. Line secured with stat lock. Insertion site covered with Biopatch and TSM. Report given to bedside nurseDiane.
[2023-07-15] MEDS: insulin lispro 100 unit/1 mL SUBCUT ×2 (13:10→17:27)
[2023-07-15] MEDS: piperacillin-tazobactam 3.375 GM in sodium chloride 0.9% (plus) 50 ML IV ×2 (13:12→20:58)
[2023-07-15 16:22] LABS: Glucose Point of Care 175 mg/dL (70-110)
[2023-07-15] MEDS: tamsulosin 0.4 mg Capsule 0.8 MG PO (20:56)
[2023-07-15] MEDS: duloxetine 60 mg Capsule PO (20:57)
[2023-07-15 20:59] LABS: Glucose Point of Care 103 mg/dL (70-110)
[2023-07-16] VITALS (16 sets, daily range): BP systolic 88–161; BP diastolic 35–73; PULSE 10–71; RESP 14–18; TEMP 36.1–36.8; O2SAT 90–100
[2023-07-16] MEDS: morphine IR 15 mg Tablet PO ×3 (00:04→22:40)
[2023-07-16 05:11] LABS: Basophils # 0.1 10^3/uL (0.0-0.1); Basophils % 0.3 %; Eosinophils # 0.4 10^3/uL (0.0-0.8); Eosinophils % 2.7 %; Hematocrit 32.7 % (37-53); Lymphocytes # 0.7 10^3/uL (0.8-4.8); Lymphocytes % 4.9 %; Mean Corpuscular Hemoglobin 24.4 pg (27-33); Mean Corpuscular Volume 81.5 fl (82-101); Mean Platelet Volume 9.1 fL (7.4-10.4); Monocytes # 1.2 10^3/uL (0.2-0.9); Monocytes % 8.2 %; Neutrophils # 11.93 10^3/uL (1.8-7.7); Neutrophils % 83.4 %; Nucleated Red Blood Cells % 0 %; Platelet Count 299 10^3/cmm (157-399); Red Blood Count 4.01 10^6/uL (3.85-5.65); White Blood Count 14.31 10^3/uL (3.29-11.43)
[2023-07-16] MEDS: vancomycin 1,000 MG in sodium chloride 0.9% 250 ML 250 MG IV (05:14)
[2023-07-16 05:31] LABS: Blood Urea Nitrogen 40 mg/dL (8-23); Calcium 8.6 mg/dL (8.5-10.5); Carbon Dioxide 28 mmol/L (22-29); Chloride 98 mmol/L (98-107); Glucose 159 mg/dL (65-115); Osmolality Calculated 297 mOsm/kg (285-295); Sodium 137 mmol/L (136-145)
[2023-07-16 05:35] LABS: Vancomycin Trough 9.7 ug/mL (10-15)
[2023-07-16 05:42] LABS: Slide Review Slide Review Perform
--- NOTE | 2023-07-16 06:43 | W.PM.OPSUD ---
Surgery/Procedure H&P Update DATE OF PROCEDURE: July 16, 2023 DATE H&P PERFORMED: 07/12/23 CHANGES TO PREVIOUS DOCUMENTATION: No changes PLANNED PROCEDURE: Operation Date: 07/13/23 10:50 Proposed Procedures p Amputation Toe/s- 4th digit(Left) - Flynn Collier DPM Operation Date: 07/16/23 07:00 Proposed Procedures p left foot 4th and 5th partial ray resection(Left) - Flynn Collier DPM
[2023-07-16] MEDS: BUPivacaine 0.5% INJ 30 mL INJECTION (07:10)
--- NOTE | 2023-07-16 08:07 | PM.OP ---
Operative Report Date of procedure: July 16, 2023 Pre-op diagnosis: Gangrene left foot Post-op diagnosis: Same Post-op findings: Necrosis, gangrene left foot fifth digit. Tracking of wound to medial longitudinal arch along flexor tendon sheath. An adequate skin for closure after debridement of nonviable tissue and bone. Discoloration to fourth metatarsal indicative of osteomyelitis Procedure done: 1. Partial fifth ray resection left foot CPT 08952 2. Partial fourth ray resection left foot CPT 11019 Specimens removed/disposition: Fourth and fifth toes as well as fifth digit left foot sent as specimen Surgeon: Flynn Collier DPM Uniform Force Captain: None Estimated blood loss: 10 cc No tourniquet Complications: None Procedure: Patient is a 73-year-old male that has a history of gangrene left foot. Patient recently underwent left foot fourth digit amputation and now requires partial fourth and partial fifth ray resection of the left foot due to extensiveness of gangrene and necrosis. A lengthy discussion regarding the procedure, including risks and complications has been had with the patient and is noted in the recent clinic note. Written and verbal consent have been obtained. All patient questions have been answered to the patient?s satisfaction. No written or verbal guarantees have been given or implied. The patient has been NPO since midnight. The history has been reviewed and the history and physical is current. The signed consent was confirmed and placed in the patient chart. Patient imaging has been reviewed and is consistent with the diagnosis. Under mild sedation, the patient was brought into the operating room and left on the gurney in the supine position. Patient is receiving IV antibiotics [id number] on the floor. IV sedation was then performed by the anesthesiateam. Local field block was then performed using 0.5% Marcaine plain. The foot was then draped and prepped in the usual fashion. After preparation the following procedure was then performed. Attention was directed to the left foot where there was noted to be discoloration to the fifth digit with beach discoloration to the plantar aspect of the fifth digit extending plantarly to the fifth metatarsal region and around to the lateral aspect of the fifth metatarsal to the level of the neck of the metatarsal. A #15 blade was used to make a full-thickness incision surrounding the necrotic, gangrenous tissue. This full-thickness incision was carried down to the level of fifth metatarsal. The digit was disarticulated at the level of the fifth metatarsal phalangeal joint and passed from the operative field be sent a specimen. The fourth metatarsal head was then dissected to be visualized. There was noted to be darkened and discolored changes to the fourth metatarsal head with erosions indicative of osteomyelitis. Sagittal bone saw was then used to remove the distal aspect of the fourth and fifth metatarsal heads. These were passed from the operative field to be sent a specimen. The surrounding necrotic, devitalized tissue was then removed using a rongeur. The flexor tendons were then visualized grasped and retracted as distally as possible before being transected as proximally as possible. The flexor tendon to the fourth digit was noted to have residual purulence and tracking to the level of the medial longitudinal arch. This tracking went to the previous incision that had been made at the prior incision and drainage. The area was opened up with a mosquito hemostat. Attention was directed to the plantar aspect of the left foot where the previous incision showed necrotic changes to the lateral aspect of the incision. This was then excised using a #15 blade. Using pulse lavage 3 L of sterile saline were then used to irrigate the area. After irrigation, the site was inspected and no residual purulence was visualized. The remaining tissues appeared viable in nature. Despite the lack of a tourniquet the blood flow to the lower extremity was sparse. 2-0 Prolene was then used to close the plantar incision as well as the most lateral aspect of the partial fifth ray resection site. However, not enough soft tissue was available to completely close the left foot. A wound VAC was then applied to the left foot partial fourth ray resection site. Good seal was noted and the VAC was placed at 125 mmHg continuous. The site was then dressed with 4 x 4 gauze, Kerlix and Benoit bandage. The patient tolerated the procedure and anesthesia well and without complication. The patient was transported from the operating room to the recovery room with vital signs stable and vascular status intact to al remaining l digits of the left foot. The patient was instructed to remain nonweightbearing to the operative extremity, to keep surgical dressing clean, dry and intact. The patient will be transferred back to the floor once anesthesia criteria is met. I will continue to round on and follow the patient in the inpatient setting and provide recommendations to stabilize the patient for discharge. Patient will need PICC line and home wound VAC prior to discharge.
--- NOTE | 2023-07-16 08:07 | W.PM.BPON ---
Date of procedure: 07/16/2023 Surgeon name: Dr. Flynn Collier D.P.M. Hall Clerk(s) name(s): None Procedure(s) performed: Partial fourth and fifth ray resection left foot with wound VAC application Description of findings: Extensive necrotic tissue surrounding fourth and fifth metatarsal heads with discolored degenerative changes of fourth metatarsal head indicative of osteomyelitis Estimated blood loss: 10 cc Specimen(s) removed: Fifth digit and fourth and fifth metatarsal heads Post-operative diagnosis: Osteomyelitis, gangrene
--- NOTE | 2023-07-16 08:31 | P.ANESASSM_ITS ---
Pre-Anesthetic Assessment Height/Weight: Height 1.78 m Weight 90.718 kg Temp Pulse Resp BP Pulse Ox O2 Del Method O2 Flow Rate 97.0 F L 55 L 16 98/48 96 Room Air 6 07/16/23 08:04 07/16/23 08:09 07/16/23 08:09 07/16/23 08:09 07/16/23 08:09 07/16/23 08:09 07/16/23 08:20 Operation Date: 07/13/23 10:50 Proposed Procedures p Amputation Toe/s- 4th digit(Left) - Flynn Collier DPM Operation Date: 07/16/23 07:00 Proposed Procedures p left foot 4th and 5th partial ray resection(Left) - Flynn Collier DPM Familial anesthetic complications: none Was Beta Nell taken within 24 hours: N/A Was Clonidine taken within 24 hours: N/A Last intake: Intake Last Liquid Date 07/15/23 Last Solid Date 07/15/23 Social No alcohol and No tobacco Exam alert, oriented x 3, clear to auscultation bilaterally and regular rate & rhythm Airway Submandibular: within normal limits Cervical ROM: within normal limits Mallampati: Class II Dentition: false Pulmonary Chronic Obstructive Pulmonary Disease CV/HEM Anemia, Arrythmia, Congestive Heart Failure, Hypertension, Murmur (AVR) and Peripheral Vascular Disease CONCLUSIONS ?LV systolic function is mildly reduced with EF of 45-50% ?RV function is mildly reduced ?Left atrial dilation ?Mild mitral regurgitation ?Bioprosthetic aortic valve. Mild to moderate aortic ?regurgitation.? Moderate aortic stenosis with aortic valve area ?1.1 cm2.? Mean gradient across aortic valve of 21 mmHg. DVI is ?0.26 ?Mild pulmonic regurgitation. Mild tricuspid regurgitation ?Mildly dilated ascending aorta ?Compared to prior echocardiogram from 08/2022, no significant ?changes are seen ?Jaime Moore MD ?(Electronically Signed) ?Final Date:? ? ? 17 June 2023 Chronic Renal Insufficiency Metabolic Diabetes Mellitus and Hyperlipidemia Anesthetic Plan ASA status: 3 Anesthesia: MAC Medications/Allergies Home Medications Medication Instructions Recorded Confirmed Last Taken Type duloxetine 60 mg capsule,delayed 60 mg PO BEDTIME 02/22/20 07/12/23 07/11/23 History release (Cymbalta) tamsulosin 0.4 mg capsule (Flomax) 0.8 mg PO BEDTIME 02/22/20 07/12/23 07/11/23 History empagliflozin 25 mg tablet 25 mg PO QAM 05/06/21 07/12/23 07/12/23 History (Jardiance) multivitamin 1 tab PO QAM 05/06/21 07/12/23 07/11/23 History cholecalciferol (vitamin D3) 25 25 mcg PO QAM 08/01/21 07/12/23 07/11/23 History mcg (1,000 unit) capsule flash glucose sensor (FreeStyle #1 ea 05/01/22 07/12/23 10/11/22 History Marisela 14 Day Sensor kit) insulin aspart U-100 100 unit/mL 15 - 25 unit SUBCUT AC 05/30/22 07/12/23 07/11/23 History subcutaneous cartridge (Novolog PenFill U-100 Insulin aspart) brimonidine 0.2 %-timolol 0.5 % 1 drp ophthalmic (eye) BID 08/27/22 07/12/23 07/11/23 History eye drops (Combigan) ketoconazole 2 % topical cream 1 applic topical BID PRN scaly 08/27/22 07/12/23 10/11/22 History areas on face zinc acetate 50 mg (zinc) capsule 50 mg PO QAM 08/27/22 07/12/23 07/11/23 History sertraline 50 mg tablet 50 mg PO QAM 11/14/22 07/12/23 07/11/23 History Diabetic shoes with 3 pair of #1 ea 11/28/22 07/12/23 Unknown Rx inserts potassium chloride 20 mEq 20 meq PO QAM #90 tabs 02/04/23 07/12/23 07/11/23 Rx tablet,extended release losartan 50 mg tablet 50 mg PO QAM #90 tabs 02/06/23 07/12/23 07/11/23 Rx bumetanide 1 mg tablet 1 mg PO BID 05/15/23 07/12/23 07/11/23 History carvedilol 3.125 mg tablet (Coreg) 3.125 mg PO QAM 07/12/23 07/12/23 07/11/23 History ciprofloxacin HCl 500 mg tablet 500 mg PO BID #20 tabs 07/12/23 07/12/23 07/11/23 Rx insulin degludec 200 unit/mL (3 30 unit SUBCUT BEDTIME PRN blood 07/12/23 Unknown History mL) subcutaneous pen (Tresiba sugar FlexTouch U-200 insulin) linezolid 600 mg tablet 600 mg PO BID #20 tabs 07/12/23 07/12/23 07/11/23 Rx metolazone 5 mg tablet 5 mg PO QAM 07/12/23 07/12/23 07/11/23 History Allergies Allergy/AdvReac Type Severity Reaction Status Date / Time No Known Allergies Allergy Verified 07/12/23 15:48 Current Medications Generic Name Dose Route Start Last Admin Trade Name Freq PRN Reason Stop Dose Admin Carvedilol 3.125 mg 07/13/23 06:00 07/16/23 06:15 Carvedilol 3.125 Mg Tablet PO Not Given QAM JYOTI Duloxetine HCl 60 mg 07/12/23 21:18 07/15/23 20:57 Duloxetine 60 Mg Capsule PO 60 mg BEDTIME JYOTI Administration Heparin Sodium (Porcine) 5,000 unit 07/13/23 21:00 07/14/23 08:45 Heparin 5,000 Unit/Ml Inj 1 Ml SUBCUT 5,000 unit Q12H JYOTI Administration Vancomycin HCl 1,000 mg/ 250 mls @ 250 mls/hr 07/15/23 06:00 07/16/23 06:16 Sodium Chloride IV Infused Q24H JYOTI Infusion Piperacillin Sod/Tazobactam 50 mls @ 12.5 mls/hr 07/15/23 11:30 07/16/23 01:17 Sod 3.375 gm/ Sodium Chloride IV Infused Q8H JYOTI Infusion Protocol As Directed Insulin Glargine 20 unit 07/13/23 21:00 07/14/23 20:03 Insulin Glargine 100 Units/1 Ml SUBCUT 20 unit BEDTIME JYOTI Administration Insulin Human Lispro 0 unit 07/12/23 21:18 07/15/23 17:27 Insulin Lispro 100 Unit/1 Ml SUBCUT 4 unit TIDWM JYOTI Administration Protocol Morphine Sulfate 15 mg 07/12/23 21:18 07/16/23 00:04 Morphine Ir 15 Mg Tablet PO 15 mg Q6H PRN Administration pAIN Senna/Docusate Sodium 1 tab 07/13/23 09:00 07/15/23 08:01 Sennosides-Docusate Tablet PO 1 tab DAILY JYOTI Administration Tamsulosin HCl 0.8 mg 07/12/23 21:18 07/15/23 20:56 Tamsulosin 0.4 Mg Capsule PO 0.8 mg BEDTIME JYOTI Administration Zinc Gluconate 50 mg 07/13/23 06:00 07/16/23 06:16 Zinc Gluconate 50 Mg Tablet PO Not Given QAM [facility] Anesthesia Medical History Acute hypokalemia Anticoagulation adequate with anticoagulant therapy Xarelto Atrial fibrillation Paroxysmal Benign prostatic hyperplasia Chronic anticoagulation Xarelto Congestive heart failure Diabetes 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 mellitus Dyslipidemia Gangrene History of nonmelanoma skin cancer HTN (hypertension) Hypertensive urgency MSSA (methicillin susceptible Staphylococcus aureus) infection NSTEMI (non-ST elevated myocardial infarction) Obesity Osteomyelitis of toe of left foot Peripheral arterial disease PVD (peripheral vascular disease) 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 on 07/21/2021 TIA (transient ischemic attack) Varicose vein of leg Surgical History S/P AVR (aortic valve replacement) Bioprosthetic, bovine S/P cataract extraction S/P cholecystectomy Family History Father Diabetes Hypertension Grandfather Diabetes PATERNAL Hypertension PATERNAL Social History Smoking and tobacco status: former smoker Alcohol intake: former Substance/Drug Use: never Marital status: / service: No Current occupational status: retired Current occupation: retired from [employer] Anesthesia 07/16/23 04:45 07/16/23 04:45 Short CBC 07/15/23 07/16/23 Range/Units 04:16 04:45 WBC 14.08 H 14.31 H (3.29-11.43) 10^3/uL Hgb 9.80 L 9.80 L (11.27-16.99) g/dL Hct 32.6 L 32.7 L (37-53) % MCV 81.1 L 81.5 L (82-101) fl Plt Count 309 299 (157-399) 10^3/cmm Neut % (Auto) 84.3 83.4 % Neut # (Auto) 11.89 H 11.93 H (1.8-7.7) 10^3/uL BMP 07/15/23 07/16/23 04:16 04:45 Sodium 132 L 137 Potassium 3.3 L 4.0 Chloride 94 L 98 Carbon Dioxide 30 H 28 BUN 55 H 40 H Creatinine 1.7 H 1.6 H Glucose 157 H 159 H Calcium 8.5 8.6 Microbiology 07/13/23 11:28 Gram Stain - Final Toe - #1 Wound Culture - Preliminary Strep agalactiae - (group b) Cardiac Studies: Echocardiogram 05/30/23 Echocardiogram Ultrasound 07/05/20 Transesophageal Echocardiogram 10/12/22 Sestamibi Stress Test (Cardiology) 01/03
--- NOTE | 2023-07-16 08:45 | SUR.PHASEI ---
PATIENT CAME FROM OR WITH WOUND VAC RUNNING TO LEFT FOOT. URINARY CATHETER IN PLACE A 500ML OUT. PATIENT A&O X3 AND STATES NO PAIN TO LEFT LEG OR FOOT. PATIENT HAS 2ND DEGREE HEART BLOCK. PRESSURES WERE RUNNING 90'S/4O'S.
--- NOTE | 2023-07-16 09:37 | PC.CHAP ---
Pastoral Care Encounter/Spiritual Assessment Type of Contact [] Declined shook splicer visit [] Patient/Family/Request visit [] Outpatient visit [] Follow-up visit [] Physician referral [] Code/Alert [] Routine visit [] Staff referral [] Actively dying [] Patient sleeping [] Family support [] [] Out of room [] Palliative care [] [x] Receiving care in room [] Pre-surgical visit [] Trauma [] Long length of stay [] ICU visit [] Other: Relational/Emotional Strength [] Patient feels connected with others/family/visitors/staff [] Distress [] Loneliness/isolation [] Abandonment Spirituality of Patient [] Person of Nona [] Attends Jain of their [place] [] Believes in Prayer [] Reads Bible or Anglican materials [] There are Spiritual issues to be addressed Customer Relations Coordinator Interventions [] Prayer [] Active listening [] Non-anxious presence [] Spiritual/emotional support [] Crisis/trauma care [] Spiritual counseling [] Bereavement support [] Provided bereavement packet [] Provided Bible/devotional materials [] Provided toy/stuffed animal, coloring book to patient or family member [] Provided Communion [] Anointing/[place] [] Salvation [] Completed spiritual assessment [] Other: Impact on Illness or Injury [] Angry [] Fearful [] Anxious [] Often cries [] Exhaustion [] Unable to work [] Unable to attend baptist [] Unable to walk/stand [] Unable to read [] Unable to drive [] Unable to eat/drink [] Unable to sleep [] Unable to be with family [] Patient intubated [] Other: Summary Time spent with patient
[2023-07-16 10:43] LABS: Glucose Point of Care 169 mg/dL (70-110)
--- NOTE | 2023-07-16 11:59 | P.PN_ITS ---
Subjective Subjective: She will need long-term placement, PICC line and long-term antibiotics Wound VAC has been applied today White count was on 14,000 07/13 culture showing strep recollected K group B History of MSSA Klebsiella and strep Vitals/I&O/Wt Last Vital Signs Temp 97.5 F L 07/16/23 10:30 Pulse 53 L 07/16/23 10:30 Resp 16 07/16/23 10:30 BP 124/50 07/16/23 10:30 Pulse Ox 95 07/16/23 10:30 O2 Del Method Nasal Cannula, Aerosol Mask 07/16/23 10:30 O2 Flow Rate 6 07/16/23 08:20 07/15/23 07/16/23 07/16/23 22:59 06:59 14:59 Intake Total 530 / 1010 300 / 1310 0 / 0 Output Total 850 / 1550 900 / 2450 510 / 510 Balance -320 / -540 -600 / -1140 -510 / -510 Physical Exam Narrative: Awake and alert GCS 15 Pleasant cooperative 2 L nasal cannula after surgery Abdomen soft Euvolemic Hemodynamic stable Urinary Catheter Management: Peoples: Cath Placed During This Visit: yes Reason for Continuing Indwelling Catheter: Accurate Measurement of Urinary Output in Critically Ill Patients Urinary Catheter Date of Insertion: 07/12/23 Urinary Catheter Time of Insertion: 23:01 Data 07/16/23 04:45 07/16/23 04:45 Micro: Microbiology 07/13/23 11:28 Gram Stain - Final Toe - #1 Wound Culture - Final Strep agalactiae - (group b) A&P Assessment and plan (1) Diabetic wet gangrene of the foot: (2) EZEQUIEL (acute kidney injury): (3) Diabetes: (4) PVD (peripheral vascular disease): (5) Atrial fibrillation: Qualifiers: Atrial fibrillation type: longstanding persistent Qualified Code(s): I48.11 - Longstanding persistent atrial fibrillation (6) MSSA (methicillin susceptible Staphylococcus aureus) infection: (7) Benign prostatic hyperplasia: Qualifiers: Lower urinary tract symptom presence: unspecified whether lower urinary tract symptoms present Qualified Code(s): N40.0 - Benign prostatic hyperplasia without lower urinary tract symptoms (8) Obesity: (9) EZEQUIEL (acute kidney injury): Plan Wet gangrene of left foot Second revision today Wound VAC applied Strep agalactiae on wound culture Continue broad-spectrum antibiotics until we get final results Patient will need 6 weeks of IV antibiotics with wound VAC dressing change every 3 days He has been afebrile Leukocytosis on 14,000 EZEQUIEL related to post renal obstruction due to BPH Creatinine improving Peoples will stay in until he is discharged he will need tamsulosin long-term Can do voiding trial tomorrow Type 2 diabetes continue insulin sliding scale Awaiting placement Attestations Medical Necessity Statement*: Continue medical management Diagnoses Diabetic wet gangrene of the foot E11.52 EZEQUIEL (acute kidney injury) N17.9 Diabetes E11.9 PVD (peripheral vascular disease) I73.9 Atrial fibrillation I48.11 Atrial fibrillation type: longstanding persistent MSSA (methicillin susceptible Staphylococcus aureus) infection A49.01 Benign prostatic hyperplasia N40.0 Lower urinary tract symptom presence: unspecified whether lower urinary tract symptoms present Obesity E66.9
[2023-07-16] MEDS: piperacillin-tazobactam 3.375 GM in sodium chloride 0.9% (plus) 50 ML IV ×2 (13:37→20:38)
[2023-07-16] MEDS: insulin lispro 100 unit/1 mL SUBCUT ×2 (13:37→17:32)
[2023-07-16 16:38] LABS: Glucose Point of Care 259 mg/dL (70-110)
--- NOTE | 2023-07-16 16:54 | ANE.PACU2 ---
Inpatient post-anesthesia follow up: Airway intact: Yes Vital signs: Temperature 98.2 F Pulse Rate 69 Respiratory Rate 17 Blood Pressure 134/35 Pulse Oximetry 95 Oxygen Delivery Me thod Room Air Oxygen Flow Rate 6 Fraction of Inspir ed Oxygen Hydration adequate: Yes Nausea and vomiting: No Pain level: 1 Mental status: Baseline
[2023-07-16] MEDS: duloxetine 60 mg Capsule PO (20:38)
[2023-07-16] MEDS: tamsulosin 0.4 mg Capsule 0.8 MG PO (20:38)
[2023-07-16] MEDS: heparin 5,000 unit/mL INJ 1 mL 5000 UNIT SUBCUT (20:38)
[2023-07-16 20:43] LABS: Glucose Point of Care 131 mg/dL (70-110)
[2023-07-17] VITALS (9 sets, daily range): BP systolic 130–156; BP diastolic 49–76; PULSE 61–94; RESP 15–18; TEMP 36.4–37.2; O2SAT 94–99
[2023-07-17] MEDS: morphine IR 15 mg Tablet PO (02:41)
[2023-07-17] MEDS: vancomycin 1,000 MG in sodium chloride 0.9% 250 ML 250 MG IV (05:14)
[2023-07-17] MEDS: carvedilol 3.125 mg Tablet PO (05:22)
[2023-07-17] MEDS: piperacillin-tazobactam 3.375 GM in sodium chloride 0.9% (plus) 50 ML IV ×3 (05:22→20:46)
[2023-07-17] MEDS: zinc gluconate 50 mg Tablet PO (05:22)
[2023-07-17 05:53] LABS: Basophils # 0.1 10^3/uL (0.0-0.1); Basophils % 0.5 %; Eosinophils # 0.4 10^3/uL (0.0-0.8); Eosinophils % 3.5 %; Hematocrit 32.9 % (37-53); Lymphocytes # 0.8 10^3/uL (0.8-4.8); Lymphocytes % 6.2 %; Mean Corpuscular HGB Conc 29.8 g/dL (30-55); Mean Corpuscular Hemoglobin 24.9 pg (27-33); Mean Corpuscular Volume 83.5 fl (82-101); Mean Platelet Volume 9.4 fL (7.4-10.4); Monocytes % 8.3 %; Neutrophils # 9.85 10^3/uL (1.8-7.7); Neutrophils % 81.2 %; Nucleated Red Blood Cells % 0 %; Platelet Count 256 10^3/cmm (157-399); Red Blood Count 3.94 10^6/uL (3.85-5.65); White Blood Count 12.14 10^3/uL (3.29-11.43)
[2023-07-17 06:14] LABS: Blood Urea Nitrogen 30 mg/dL (8-23); Calcium 8.6 mg/dL (8.5-10.5); Carbon Dioxide 27 mmol/L (22-29); Chloride 100 mmol/L (98-107); Glucose 158 mg/dL (65-115); Osmolality Calculated 295 mOsm/kg (285-295); Sodium 138 mmol/L (136-145)
[2023-07-17 06:16] LABS: Magnesium 2.1 mg/dL (1.7-2.3)
[2023-07-17 06:24] LABS: Glucose Point of Care 165 mg/dL (70-110)
--- NOTE | 2023-07-17 06:53 | P.PN_ITS ---
Subjective Subjective: No significant overnight events Leukocytosis improving Previous culture from the OR showing strep agalactiae Continue antibiotics until we see final culture report Plan is for 6 weeks of IV antibiotics for osteomyelitis, shelter placement Vitals/I&O/Wt Last Vital Signs Temp 98.9 F 07/17/23 04:00 Pulse 76 07/17/23 04:00 Resp 18 07/17/23 04:00 BP 130/49 07/17/23 04:00 Pulse Ox 95 07/17/23 04:00 O2 Del Method Room Air 07/17/23 00:00 O2 Flow Rate 6 07/16/23 08:20 07/16/23 07/16/23 07/17/23 14:59 22:59 06:59 Intake Total 240 / 240 1500 / 1740 300 / 2040 Output Total 1310 / 1310 400 / 1710 400 / 2110 Balance -1070 / -1070 1100 / 30 -100 / -70 Physical Exam Narrative: Awake and alert Left foot with wound VAC Dressing in place GCS 15 Doing well on room air Pleasant and cooperative Hard of hearing No signs of dehydration Abdomen soft Urinary Catheter Management: Peoples: Cath Placed During This Visit: yes Reason for Continuing Indwelling Catheter: Acute Urinary Retention or Obstruction Urinary Catheter Date of Insertion: 07/12/23 Urinary Catheter Time of Insertion: 23:01 Data 07/17/23 05:21 07/17/23 05:21 Micro: Microbiology 07/13/23 11:28 Anaerobic Culture - Preliminary Foot - #1 07/13/23 11:28 Gram Stain - Final Toe - #1 Wound Culture - Final Strep agalactiae - (group b) A&P Assessment and plan (1) Osteomyelitis of foot: (2) Diabetic wet gangrene of the foot: (3) EZEQUIEL (acute kidney injury): (4) Diabetes: (5) Benign prostatic hyperplasia: Qualifiers: Lower urinary tract symptom presence: unspecified whether lower urinary tract symptoms present Qualified Code(s): N40.0 - Benign prostatic hyperplasia without lower urinary tract symptoms (6) MSSA (methicillin susceptible Staphylococcus aureus) infection: (7) Atrial fibrillation: Qualifiers: Atrial fibrillation type: longstanding persistent Qualified Code(s): I48.11 - Longstanding persistent atrial fibrillation Plan Osteomyelitis of left foot Continue IV antibiotics Final culture report is pending previous culture did show strep atelectatic a, MSSA Patient leukocytosis improving No fever Patient will need 6 weeks of IV antibiotics, final antibiotic choice will be dependent on culture report Wound VAC in place Postrenal EZEQUIEL: Improving, creatinine improving every day adequate urine output, continue Peoples catheter Opioids with bowel regimen Disposition: retirement once received final culture report from 07/16 Insulin with sliding scale for type 2 diabetes DVT prophylaxis on board Heparin Full code Attestations Medical Necessity Statement*: Continue medical management Diagnoses Osteomyelitis of foot M86.9 Diabetic wet gangrene of the foot E11.52 EZEQUIEL (acute kidney injury) N17.9 Diabetes E11.9 Benign prostatic hyperplasia N40.0 Lower urinary tract symptom presence: unspecified whether lower urinary tract symptoms present MSSA (methicillin susceptible Staphylococcus aureus) infection A49.01 Atrial fibrillation I48.11 Atrial fibrillation type: longstanding persistent
[2023-07-17] MEDS: sennosides-docusate Tablet 1 TAB PO (08:22)
[2023-07-17] MEDS: heparin 5,000 unit/mL INJ 1 mL 5000 UNIT SUBCUT ×2 (08:22→20:46)
[2023-07-17] MEDS: insulin lispro 100 unit/1 mL SUBCUT ×2 (08:22→11:24)
--- NOTE | 2023-07-17 10:35 | P.PN_ITS ---
Subjective Subjective: Patient seen at bedside this morning. Resting comfortably. Wound VAC intact. No overnight events. Pain is well controlled Vitals/I&O/Wt Last Vital Signs Temp 97.5 F L 07/17/23 07:49 Pulse 72 07/17/23 08:00 Resp 18 07/17/23 08:00 BP 151/51 07/17/23 07:49 Pulse Ox 95 07/17/23 08:00 O2 Del Method Room Air 07/17/23 08:00 O2 Flow Rate 6 07/16/23 08:20 07/16/23 07/17/23 07/17/23 22:59 06:59 14:59 Intake Total 1500 / 1740 300 / 2040 530 / 530 Output Total 400 / 1710 400 / 2110 Balance 1100 / 30 -100 / -70 530 / 530 Physical Exam Narrative: GENERAL: A&O x 3 VASCULAR: DP/PT pulses non palpable with dependent rubor to left foot. DERMATOLOGICAL: Surgical dressing intact with no strikethrough noted. Wound VAC intact holding 125 mmHg continuous MUSCULOSKELETAL: Partial fourth and fifth ray resection left foot NEUROLOGICAL: Neurological sensation to the affected foot and ankle is present through L4-S1 dermatomes with no hyper/hypoesthesias, negative Tinel or Valleix's sign Urinary Catheter Management: Peoples: Cath Placed During This Visit: yes Reason for Continuing Indwelling Catheter: Acute Urinary Retention or Obstruction Urinary Catheter Date of Insertion: 07/12/23 Urinary Catheter Time of Insertion: 23:01 Data 07/17/23 05:21 07/17/23 05:21 Micro: Microbiology 07/13/23 11:28 Anaerobic Culture - Preliminary Foot - #1 07/13/23 11:28 Gram Stain - Final Toe - #1 Wound Culture - Final Strep agalactiae - (group b) A&P Assessment and plan (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 No plan for further surgical debridement during this admission -Continue IV abx -Patient has severe PAD. -Nonweightbearing to left lower extremity except for transfers -Patient will need wound VAC change every 3 days at custodial -Discharge plan: Recommend PICC line placement and long-term IV antibiotics given intraoperative findings. Patient will need to be discharged to custodial. Okay to discharge from podiatry standpoint once final antibiotic recommendations have been made and patient is deemed medically stable Attestations Medical Necessity Statement*: See hospitalist note Coding Level of Care Code Acute Code for [facility] Fwd Diagnoses Diabetic wet gangrene of the foot E11.52 PVD (peripheral vascular disease) I73.9 Diabetes E11.9 EZEQUIEL (acute kidney injury) N17.9
[2023-07-17 11:11] LABS: Glucose Point of Care 215 mg/dL (70-110)
--- NOTE | 2023-07-17 11:16 | PC.CHAP ---
Pastoral Care Encounter/Spiritual Assessment Type of Contact [] Declined marble coper visit [] Patient/Family/Request visit [] Outpatient visit [] Follow-up visit [] Physician referral [] Code/Alert [x] Routine visit [] Staff referral [] Actively dying [] Patient sleeping [] Family support [] [] Out of room [] Palliative care [] [] Receiving care in room [] Pre-surgical visit [] Trauma [] Long length of stay [] ICU visit [] Other: Relational/Emotional Strength [] Patient feels connected with others/family/visitors/staff [] Distress [] Loneliness/isolation [] Abandonment Spirituality of Patient [] Person of [place] [] Attends Hoahaoism of their [place] [] Believes in Prayer [] Reads Bible or Church materials [] There are Spiritual issues to be addressed Furnace Unloader Interventions [x] Prayer [] Active listening [] Non-anxious presence [] Spiritual/emotional support [] Crisis/trauma care [] Spiritual counseling [] Bereavement support [] Provided bereavement packet [] Provided Bible/devotional materials [] Provided toy/stuffed animal, coloring book to patient or family member [] Provided Communion [] Anointing/[place] [] Salvation [] Completed spiritual assessment [] Other: Impact on Illness or Injury [] Angry [] Fearful [] Anxious [] Often cries [] Exhaustion [] Unable to work [] Unable to attend religious [] Unable to walk/stand [] Unable to read [] Unable to drive [] Unable to eat/drink [] Unable to sleep [] Unable to be with family [] Patient intubated [] Other: Summary Time spent with patient 10 min
[2023-07-17 17:16] LABS: Glucose Point of Care 136 mg/dL (70-110)
[2023-07-17] MEDS: duloxetine 60 mg Capsule PO (20:47)
[2023-07-17] MEDS: tamsulosin 0.4 mg Capsule 0.8 MG PO (20:47)
[2023-07-17] MEDS: insulin glargine 100 units/1 mL 20 UNIT SUBCUT (20:49)
[2023-07-17 21:01] LABS: Glucose Point of Care 273 mg/dL (70-110)
[2023-07-18] VITALS (11 sets, daily range): BP systolic 117–147; BP diastolic 37–61; PULSE 53–90; RESP 15–18; TEMP 36.4–37.1; O2SAT 94–99
[2023-07-18] MEDS: vancomycin 1,000 MG in sodium chloride 0.9% 250 ML 250 MG IV (05:18)
[2023-07-18] MEDS: piperacillin-tazobactam 3.375 GM in sodium chloride 0.9% (plus) 50 ML IV ×3 (05:20→22:13)
[2023-07-18] MEDS: carvedilol 3.125 mg Tablet PO (05:21)
[2023-07-18] MEDS: zinc gluconate 50 mg Tablet PO (05:21)
[2023-07-18 05:38] LABS: Basophils # 0.1 10^3/uL (0.0-0.1); Basophils % 0.7 %; Eosinophils # 0.6 10^3/uL (0.0-0.8); Eosinophils % 5.3 %; Hematocrit 33.3 % (37-53); Lymphocytes # 0.9 10^3/uL (0.8-4.8); Lymphocytes % 7.7 %; Mean Corpuscular HGB Conc 29.4 g/dL (30-55); Mean Corpuscular Hemoglobin 24.5 pg (27-33); Mean Corpuscular Volume 83.3 fl (82-101); Mean Platelet Volume 8.9 fL (7.4-10.4); Monocytes # 0.9 10^3/uL (0.2-0.9); Monocytes % 8.3 %; Neutrophils # 8.71 10^3/uL (1.8-7.7); Neutrophils % 77.6 %; Nucleated Red Blood Cells % 0 %; Platelet Count 322 10^3/cmm (157-399); White Blood Count 11.23 10^3/uL (3.29-11.43)
[2023-07-18 05:54] LABS: Blood Urea Nitrogen 24 mg/dL (8-23); Calcium 8.6 mg/dL (8.5-10.5); Carbon Dioxide 29 mmol/L (22-29); Chloride 101 mmol/L (98-107); Glucose 139 mg/dL (65-115); Osmolality Calculated 292 mOsm/kg (285-295); Sodium 138 mmol/L (136-145)
[2023-07-18 05:55] LABS: Anion Gap 12.1 (5-19); Potassium 4.1 mmol/L (3.5-5.1)
[2023-07-18 06:22] LABS: Glucose Point of Care 131 mg/dL (70-110)
[2023-07-18] MEDS: sennosides-docusate Tablet 1 TAB PO (08:37)
[2023-07-18] MEDS: heparin 5,000 unit/mL INJ 1 mL 5000 UNIT SUBCUT ×2 (08:37→22:10)
[2023-07-18] MEDS: morphine IR 15 mg Tablet PO ×3 (10:00→22:08)
--- NOTE | 2023-07-18 10:04 | P.PN_ITS ---
Subjective Subjective: To be discharged once get authorization Most likely able to ceftriaxone 2 g daily for osteomyelitis for 6 weeks Considering history of strep atelectatic a, MSSA Patient asking for lactulose for constipation Vitals/I&O/Wt Last Vital Signs Temp 98.4 F 07/18/23 03:42 Pulse 53 L 07/18/23 09:32 Resp 18 07/18/23 10:00 BP 141/61 07/18/23 03:42 Pulse Ox 98 07/18/23 09:32 O2 Del Method Room Air 07/18/23 09:32 O2 Flow Rate 6 07/16/23 08:20 07/17/23 07/18/23 07/18/23 22:59 06:59 14:59 Intake Total 530 / 1540 300 / 1840 50 / 50 Output Total 300 / 850 125 / 975 300 / 300 Balance 230 / 690 175 / 865 -250 / -250 Physical Exam Narrative: Continue IV antibiotics GC 50 Left foot covered in dressing Patient was on bedside commode Awake and alert GCS 15 Currently on room air Urinary Catheter Management: Peoples: Cath Placed During This Visit: yes, but has since been removed by the nurse Reason for Continuing Indwelling Catheter: Decision to DC Catheter Urinary Catheter Date of Insertion: 07/12/23 Urinary Catheter Time of Insertion: 23:01 Date Urinary Catheter Removed: 07/18/23 Time Urinary Catheter Discontinued: 06:00 Data 07/18/23 05:17 07/18/23 05:17 Micro: Microbiology 07/13/23 11:28 Anaerobic Culture - Preliminary Foot - #1 07/12/23 16:20 Blood Culture - Final Blood NO GROWTH AFTER 5 DAYS 07/12/23 16:26 Blood Culture - Final Blood NO GROWTH AFTER 5 DAYS A&P Assessment and plan (1) Osteomyelitis of foot: (2) Diabetic wet gangrene of the foot: (3) EZEQUIEL (acute kidney injury): (4) Diabetes: (5) PVD (peripheral vascular disease): (6) Atrial fibrillation: Qualifiers: Atrial fibrillation type: longstanding persistent Qualified Code(s): I48.11 - Longstanding persistent atrial fibrillation (7) Benign prostatic hyperplasia: Qualifiers: Lower urinary tract symptom presence: unspecified whether lower urinary tract symptoms present Qualified Code(s): N40.0 - Benign prostatic hyperplasia without lower urinary tract symptoms Plan Postrenal EZEQUIEL: Improving, I will remove Peoples catheter, voiding trial Continue tamsulosin If he retains we will reinsert Peoples catheter We will discharge him likely on IV antibiotics for 6 weeks with 2 g of ceftriaxone system administration manager on board Authorization is pending Continue sliding scale with Lanyessica Attestations Medical Necessity Statement*: Continue medical management Diagnoses Osteomyelitis of foot M86.9 Diabetic wet gangrene of the foot E11.52 EZEQUIEL (acute kidney injury) N17.9 Diabetes E11.9 PVD (peripheral vascular disease) I73.9 Atrial fibrillation I48.11 Atrial fibrillation type: longstanding persistent Benign prostatic hyperplasia N40.0 Lower urinary tract symptom presence: unspecified whether lower urinary tract symptoms present
[2023-07-18 10:59] LABS: Glucose Point of Care 152 mg/dL (70-110)
[2023-07-18] MEDS: insulin lispro 100 unit/1 mL SUBCUT (11:36)
[2023-07-18] MEDS: lactulose oral liq 20 gm/30 mL UDC PO (11:36)
[2023-07-18 17:27] LABS: Glucose Point of Care 132 mg/dL (70-110)
[2023-07-18 20:36] LABS: Glucose Point of Care 278 mg/dL (70-110)
[2023-07-18] MEDS: duloxetine 60 mg Capsule PO (22:08)
[2023-07-18] MEDS: tamsulosin 0.4 mg Capsule 0.8 MG PO (22:08)
[2023-07-18] MEDS: insulin glargine 100 units/1 mL 20 UNIT SUBCUT (22:12)
[2023-07-19] VITALS (11 sets, daily range): BP systolic 121–158; BP diastolic 42–73; PULSE 57–102; RESP 14–18; TEMP 36.4–36.9; O2SAT 92–100
[2023-07-19 06:13] LABS: Blood Urea Nitrogen 22 mg/dL (8-23); Calcium 8.4 mg/dL (8.5-10.5); Carbon Dioxide 29 mmol/L (22-29); Chloride 103 mmol/L (98-107); Glucose 139 mg/dL (65-115); Osmolality Calculated 296 mOsm/kg (285-295); Sodium 140 mmol/L (136-145)
[2023-07-19 06:15] LABS: Vancomycin Trough 12.6 ug/mL (10-15)
[2023-07-19 06:29] LABS: Glucose Point of Care 142 mg/dL (70-110)
[2023-07-19] MEDS: vancomycin 1,000 MG in sodium chloride 0.9% 250 ML 250 MG IV (06:29)
[2023-07-19] MEDS: cefTRIAXone 2,000 MG in sodium chloride 0.9% (plus) 50 ML 100 MG IV (06:32)
[2023-07-19] MEDS: piperacillin-tazobactam 3.375 GM in sodium chloride 0.9% (plus) 50 ML IV (06:36)
[2023-07-19] MEDS: morphine IR 15 mg Tablet PO ×3 (06:37→22:01)
[2023-07-19] MEDS: carvedilol 3.125 mg Tablet PO (06:37)
[2023-07-19] MEDS: zinc gluconate 50 mg Tablet PO (06:38)
--- NOTE | 2023-07-19 08:36 | P.PN_ITS ---
Subjective Subjective: Patient seen and evaluated at bedside this morning. Pain is well controlled. No overnight events. Plan is for discharge to [facility] today. PICC line placed Vitals/I&O/Wt Last Vital Signs Temp 98 F 07/19/23 07:58 Pulse 78 07/19/23 07:58 Resp 18 07/19/23 07:58 BP 135/73 07/19/23 07:58 Pulse Ox 98 07/19/23 07:58 O2 Del Method Room Air 07/19/23 07:58 O2 Flow Rate 6 07/16/23 08:20 07/18/23 07/19/23 07/19/23 22:59 06:59 14:59 Intake Total 290 / 580 50 / 630 50 / 50 Output Total 350 / 650 Balance 290 / 280 -300 / -20 50 / 50 Physical Exam Narrative: GENERAL: A&O x 3 VASCULAR: DP/PT pulses non palpable with dependent rubor to left foot. DERMATOLOGICAL: Surgical dressing intact with no strikethrough noted. Wound VAC intact holding 125 mmHg continuous. Removed to show granular amputation site with minor giuseppe amputation site necrosis. MUSCULOSKELETAL: Partial fourth and fifth ray resection left foot NEUROLOGICAL: Neurological sensation to the affected foot and ankle is present through L4-S1 dermatomes with no hyper/hypoesthesias, negative Tinel or Valleix's sign Urinary Catheter Management: Peoples: Cath Placed During This Visit: yes, but has since been removed by the nurse Reason for Continuing Indwelling Catheter: Decision to DC Catheter Urinary Catheter Date of Insertion: 07/12/23 Urinary Catheter Time of Insertion: 23:01 Date Urinary Catheter Removed: 07/18/23 Time Urinary Catheter Discontinued: 06:00 Data 07/18/23 05:17 07/19/23 05:08 Micro: Microbiology 07/13/23 11:28 Anaerobic Culture - Preliminary Foot - #1 A&P Assessment and plan (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 No plan for further surgical debridement during this admission -Continue IV abx -Patient has severe PAD. -Nonweightbearing to left lower extremity except for transfers -Patient will need wound VAC change every 3 days at [facility]. Wound vac removed this morning and saline wet to dry dressing applied. In the event that the wound vac is not at the [facility], he is to have saline wet to dry dressings BID -Discharge plan: Ok to discharge from podiatry standpoint -Follow up with Podiatry within one week of discharge Attestations Medical Necessity Statement*: See hospitalist note Coding Level of Care Code Acute Code for [facility] Fwd Diagnoses Diabetic wet gangrene of the foot E11.52 PVD (peripheral vascular disease) I73.9 Diabetes E11.9 EZEQUIEL (acute kidney injury) N17.9
[2023-07-19] MEDS: sennosides-docusate Tablet 1 TAB PO (08:50)
[2023-07-19] MEDS: insulin lispro 100 unit/1 mL SUBCUT (08:50)
[2023-07-19] MEDS: heparin 5,000 unit/mL INJ 1 mL 5000 UNIT SUBCUT ×2 (08:50→21:59)
--- NOTE | 2023-07-19 09:45 | P.PN_ITS ---
Subjective Subjective: Patient is voiding, creatinine stable Peoples catheter removed 07/18 Afebrile No significant leukocytosis Vitals/I&O/Wt Last Vital Signs Temp 98 F 07/19/23 07:58 Pulse 61 07/19/23 09:18 Resp 16 07/19/23 09:18 BP 135/73 07/19/23 07:58 Pulse Ox 92 07/19/23 09:18 O2 Del Method Room Air 07/19/23 09:18 O2 Flow Rate 6 07/16/23 08:20 07/18/23 07/19/23 07/19/23 22:59 06:59 14:59 Intake Total 290 / 580 50 / 630 780 / 780 Output Total 350 / 650 Balance 290 / 280 -300 / -20 780 / 780 Physical Exam Narrative: Wound VAC has been removed Left foot covered in dressing GCS 15 Awake and alert Pleasant Hard of hearing Laying supine without any difficulty no active distress chest pain or shortness of breath Doing well on room air Urinary Catheter Management: Peoples: Cath Placed During This Visit: yes, but has since been removed by the nurse Reason for Continuing Indwelling Catheter: Decision to DC Catheter Urinary Catheter Date of Insertion: 07/12/23 Urinary Catheter Time of Insertion: 23:01 Date Urinary Catheter Removed: 07/18/23 Time Urinary Catheter Discontinued: 06:00 Data 07/18/23 05:17 07/19/23 05:08 Micro: Microbiology 07/13/23 11:28 Anaerobic Culture - Preliminary Foot - #1 A&P Assessment and plan (1) Osteomyelitis of foot: (2) Diabetic wet gangrene of the foot: (3) EZEQUIEL (acute kidney injury): (4) Diabetes: (5) MSSA (methicillin susceptible Staphylococcus aureus) infection: (6) Atrial fibrillation: Qualifiers: Atrial fibrillation type: longstanding persistent Qualified Code(s): I48.11 - Longstanding persistent atrial fibrillation (7) PVD (peripheral vascular disease): (8) Benign prostatic hyperplasia: Qualifiers: Lower urinary tract symptom presence: unspecified whether lower urinary tract symptoms present Qualified Code(s): N40.0 - Benign prostatic hyperplasia without lower urinary tract symptoms Plan Discontinue vancomycin and Zosyn I would choose ceftriaxone 2 g daily First dose today Wound VAC has been removed His wound VAC supplies will be supplied by the senior care In case he is not able to get 1 podiatry recommended wet-to-dry dressing Patient is afebrile Voiding trial successful patient has been able to void on his own monitor with bladder scanner if he is retaining Continue tamsulosin Patient is ready to be discharged once gets authorization to go to senior care Attestations Medical Necessity Statement*: Continue medical management Diagnoses Osteomyelitis of foot M86.9 Diabetic wet gangrene of the foot E11.52 EZEQUIEL (acute kidney injury) N17.9 Diabetes E11.9 MSSA (methicillin susceptible Staphylococcus aureus) infection A49.01 Atrial fibrillation I48.11 Atrial fibrillation type: longstanding persistent PVD (peripheral vascular disease) I73.9 Benign prostatic hyperplasia N40.0 Lower urinary tract symptom presence: unspecified whether lower urinary tract symptoms present
[2023-07-19 11:23] LABS: Glucose Point of Care 89 mg/dL (70-110)
[2023-07-19 17:43] LABS: Glucose Point of Care 100 mg/dL (70-110)
[2023-07-19 20:42] LABS: Glucose Point of Care 224 mg/dL (70-110)
[2023-07-19] MEDS: tamsulosin 0.4 mg Capsule 0.8 MG PO (21:58)
[2023-07-19] MEDS: insulin glargine 100 units/1 mL 20 UNIT SUBCUT (21:58)
[2023-07-19] MEDS: duloxetine 60 mg Capsule PO (21:58)
[2023-07-20] VITALS (10 sets, daily range): BP systolic 117–147; BP diastolic 45–70; PULSE 52–100; RESP 14–18; TEMP 36.4–36.8; O2SAT 90–100
[2023-07-20 04:47] LABS: Basophils # 0.1 10^3/uL (0.0-0.1); Basophils % 1.2 %; Eosinophils # 0.7 10^3/uL (0.0-0.8); Eosinophils % 7.1 %; Hematocrit 33.3 % (37-53); Lymphocytes # 0.9 10^3/uL (0.8-4.8); Lymphocytes % 9.5 %; Mean Corpuscular HGB Conc 29.1 g/dL (30-55); Mean Corpuscular Hemoglobin 24.4 pg (27-33); Mean Corpuscular Volume 83.7 fl (82-101); Mean Platelet Volume 9.6 fL (7.4-10.4); Monocytes # 0.7 10^3/uL (0.2-0.9); Monocytes % 7.5 %; Neutrophils # 6.96 10^3/uL (1.8-7.7); Neutrophils % 74.3 %; Nucleated Red Blood Cells % 0 %; Platelet Count 335 10^3/cmm (157-399); Red Blood Count 3.98 10^6/uL (3.85-5.65); White Blood Count 9.36 10^3/uL (3.29-11.43)
[2023-07-20 05:05] LABS: Blood Urea Nitrogen 21 mg/dL (8-23); Calcium 8.4 mg/dL (8.5-10.5); Carbon Dioxide 29 mmol/L (22-29); Chloride 101 mmol/L (98-107); Glucose 183 mg/dL (65-115); Osmolality Calculated 292 mOsm/kg (285-295); Sodium 137 mmol/L (136-145)
[2023-07-20 05:08] LABS: Anion Gap 11.4 (5-19); Potassium 4.4 mmol/L (3.5-5.1)
[2023-07-20 05:35] LABS: Add RBC Morph Yes; RBC Morph Comp No; Slide Review Slide Review Perform
[2023-07-20 05:36] LABS: Anisocytosis 1+; Dimorphic RBC 1+; Hypochromasia 2+; Poikilocytosis 1+
[2023-07-20] MEDS: zinc gluconate 50 mg Tablet PO (05:48)
[2023-07-20] MEDS: cefTRIAXone 2,000 MG in sodium chloride 0.9% (plus) 50 ML 100 MG IV (05:48)
[2023-07-20] MEDS: morphine IR 15 mg Tablet PO ×2 (05:48→22:29)
[2023-07-20] MEDS: carvedilol 3.125 mg Tablet PO (05:48)
[2023-07-20 06:29] LABS: Glucose Point of Care 130 mg/dL (70-110)
--- NOTE | 2023-07-20 08:33 | P.PN_ITS ---
Subjective Subjective: Patient is awaiting placement Catheterization is still pending Ceftriaxone 2 g daily a 6 weeks Afebrile Vitals/I&O/Wt Last Vital Signs Temp 97.6 F 07/20/23 07:39 Pulse 60 07/20/23 07:46 Resp 16 07/20/23 07:46 BP 127/50 07/20/23 07:39 Pulse Ox 95 07/20/23 07:46 O2 Del Method Room Air 07/20/23 07:46 O2 Flow Rate 6 07/16/23 08:20 07/19/23 07/20/23 07/20/23 22:59 06:59 14:59 Intake Total 240 / 1301.042 50 / 1351.042 Output Total 100 / 100 325 / 425 Balance 140 / 1201.042 -275 / 926.042 Physical Exam Narrative: Patient is awake and alert Nonfocal neuro exam Discharge After covered in dressing Peoples catheter has been removed Pleasant and cooperative Nonfocal neuro exam currently on room air Urinary Catheter Management: Peoples: Cath Placed During This Visit: yes, but has since been removed by the nurse Reason for Continuing Indwelling Catheter: Decision to DC Catheter Urinary Catheter Date of Insertion: 07/12/23 Urinary Catheter Time of Insertion: 23:01 Date Urinary Catheter Removed: 07/18/23 Time Urinary Catheter Discontinued: 06:00 Data 07/20/23 04:09 07/20/23 04:09 A&P Assessment and plan (1) Osteomyelitis of foot: (2) Diabetic wet gangrene of the foot: (3) EZEQUIEL (acute kidney injury): (4) Diabetes: (5) Benign prostatic hyperplasia: Qualifiers: Lower urinary tract symptom presence: unspecified whether lower urinary tract symptoms present Qualified Code(s): N40.0 - Benign prostatic hyperplasia without lower urinary tract symptoms Plan Osteomyelitis patient will need 6 weeks of ceftriaxone 2 g IV daily EZEQUIEL related to post renal urine obstruction resolved with Peoples catheter placement, patient is doing well with voiding trial no need of reinsertion of Peoples catheter at this point Creatinine improving Culture showing strep atelectatic Afebrile Nursing placement Attestations Medical Necessity Statement*: Awaiting senior care placement Diagnoses Osteomyelitis of foot M86.9 Diabetic wet gangrene of the foot E11.52 EZEQUIEL (acute kidney injury) N17.9 Diabetes E11.9 Benign prostatic hyperplasia N40.0 Lower urinary tract symptom presence: unspecified whether lower urinary tract symptoms present
[2023-07-20] MEDS: heparin 5,000 unit/mL INJ 1 mL 5000 UNIT SUBCUT ×2 (09:20→22:28)
[2023-07-20] MEDS: sennosides-docusate Tablet 1 TAB PO (09:20)
[2023-07-20 11:01] LABS: Glucose Point of Care 133 mg/dL (70-110)
[2023-07-20 17:16] LABS: Glucose Point of Care 197 mg/dL (70-110)
[2023-07-20] MEDS: insulin lispro 100 unit/1 mL SUBCUT (17:56)
[2023-07-20] MEDS: duloxetine 60 mg Capsule PO (22:28)
[2023-07-20] MEDS: tamsulosin 0.4 mg Capsule 0.8 MG PO (22:28)
[2023-07-20] MEDS: insulin glargine 100 units/1 mL 20 UNIT SUBCUT (22:31)
[2023-07-20 22:32] LABS: Glucose Point of Care 176 mg/dL (70-110)
[2023-07-21] VITALS (8 sets, daily range): BP systolic 125–169; BP diastolic 44–68; PULSE 46–74; RESP 13–18; TEMP 36.6–37.2; O2SAT 92–98
[2023-07-21] MEDS: acetaminophen 500 mg Tablet PO (01:43)
[2023-07-21] MEDS: morphine IR 15 mg Tablet PO (03:20)
[2023-07-21] MEDS: carvedilol 3.125 mg Tablet PO (05:56)
[2023-07-21] MEDS: zinc gluconate 50 mg Tablet PO (05:56)
[2023-07-21] MEDS: cefTRIAXone 2,000 MG in sodium chloride 0.9% (plus) 50 ML 100 MG IV (05:57)
[2023-07-21 06:26] LABS: Glucose Point of Care 89 mg/dL (70-110)
[2023-07-21] MEDS: heparin 5,000 unit/mL INJ 1 mL 5000 UNIT SUBCUT ×2 (09:46→21:13)
[2023-07-21] MEDS: sennosides-docusate Tablet 1 TAB PO (09:46)
[2023-07-21 11:36] LABS: Glucose Point of Care 202 mg/dL (70-110)
[2023-07-21] MEDS: insulin lispro 100 unit/1 mL SUBCUT ×2 (13:16→18:08)
[2023-07-21 17:14] LABS: Glucose Point of Care 178 mg/dL (70-110)
--- NOTE | 2023-07-21 17:53 | PM.PN ---
Subjective Subjective: Awaiting placement No fever Culture showing strep agalactiae Vitals/I&O/Wt Last Vital Signs Temp 97.6 F 07/20/23 11:46 Pulse 58 L 07/20/23 15:11 Resp 16 07/20/23 15:11 BP 138/52 07/20/23 15:11 Pulse Ox 96 07/20/23 15:11 O2 Del Method Room Air 07/20/23 15:11 O2 Flow Rate 6 07/16/23 08:20 07/20/23 07/20/23 07/20/23 06:59 14:59 22:59 Intake Total 50 / 1351.042 360 / 360 Output Total 325 / 425 150 / 150 Balance -275 / 926.042 360 / 360 -150 / 210 Physical Exam Narrative: Left foot covered in dressing Pleasant Signs of dehydration improved Voiding urine without any difficulty Currently on room air Pleasant cough Laying supine Nonfocal neuro exam Urinary Catheter Management: Peoples: Cath Placed During This Visit: yes, but has since been removed by the nurse Reason for Continuing Indwelling Catheter: Decision to DC Catheter Urinary Catheter Date of Insertion: 07/12/23 Urinary Catheter Time of Insertion: 23:01 Date Urinary Catheter Removed: 07/18/23 Time Urinary Catheter Discontinued: 06:00 Data 07/20/23 04:09 07/20/23 04:09 Micro: Microbiology 07/13/23 11:28 Anaerobic Culture - Preliminary Foot - #1 A&P Assessment and plan (1) Osteomyelitis of foot: (2) Diabetic wet gangrene of the foot: (3) EZEQUIEL (acute kidney injury): (4) Diabetes: (5) Atrial fibrillation: Qualifiers: Atrial fibrillation type: longstanding persistent Qualified Code(s): I48.11 - Longstanding persistent atrial fibrillation (6) PVD (peripheral vascular disease): (7) Obesity: Plan Continue ceftriaxone 2 g daily Plan to discharge him Saturday to intermediate Pending authorization Afebrile Culture reviewed Glucose controlled at current Lantus 20 units and sliding scale No active pain Weight offloading DVT prophylaxis on board Creatinine stable, patient voiding urine without any difficulty Attestations Medical Necessity Statement*: Discharge likely next week Diagnoses Osteomyelitis of foot M86.9 Diabetic wet gangrene of the foot E11.52 EZEQUIEL (acute kidney injury) N17.9 Diabetes E11.9 Atrial fibrillation I48.11 Atrial fibrillation type: longstanding persistent PVD (peripheral vascular disease) I73.9 Obesity E66.9
[2023-07-21 20:13] LABS: Glucose Point of Care 195 mg/dL (70-110)
[2023-07-21] MEDS: duloxetine 60 mg Capsule PO (21:13)
[2023-07-21] MEDS: tamsulosin 0.4 mg Capsule 0.8 MG PO (21:13)
[2023-07-21] MEDS: insulin glargine 100 units/1 mL 20 UNIT SUBCUT (21:14)
[2023-07-22] VITALS (12 sets, daily range): BP systolic 143–163; BP diastolic 43–70; PULSE 50–96; RESP 16–19; TEMP 36.2–37.2; O2SAT 92–98
[2023-07-22] MEDS: morphine IR 15 mg Tablet PO ×4 (02:03→23:54)
[2023-07-22] MEDS: acetaminophen 500 mg Tablet PO (04:03)
[2023-07-22] MEDS: carvedilol 3.125 mg Tablet PO (06:29)
[2023-07-22] MEDS: cefTRIAXone 2,000 MG in sodium chloride 0.9% (plus) 50 ML 100 MG IV (06:29)
[2023-07-22] MEDS: zinc gluconate 50 mg Tablet PO (06:29)
[2023-07-22 06:42] LABS: Glucose Point of Care 111 mg/dL (70-110)
[2023-07-22] MEDS: heparin 5,000 unit/mL INJ 1 mL 5000 UNIT SUBCUT ×2 (08:18→20:09)
[2023-07-22] MEDS: sennosides-docusate Tablet 1 TAB PO (08:18)
--- NOTE | 2023-07-22 10:25 | P.PN_ITS ---
Subjective Subjective: Pending authorization Overnight events Patient had a bowel movement Constipation relieved Vitals/I&O/Wt Last Vital Signs Temp 97.2 F L 07/22/23 07:48 Pulse 60 07/22/23 08:44 Resp 16 07/22/23 08:44 BP 146/56 07/22/23 07:48 Pulse Ox 93 07/22/23 08:44 O2 Del Method Room Air 07/22/23 08:44 O2 Flow Rate 6 07/16/23 08:20 07/21/23 07/22/23 07/22/23 22:59 06:59 14:59 Intake Total 240 / 1080 480 / 1560 360 / 360 Output Total 300 / 950 300 / 1250 200 / 200 Balance -60 / 130 180 / 310 160 / 160 Physical Exam Narrative: Left foot: Dressing Pleasant and cooperative Currently on room air Patient laying supine Nonfocal neuro exam S1, S2 GCS 15 Urinary Catheter Management: Peoples: Cath Placed During This Visit: yes, but has since been removed by the nurse Reason for Continuing Indwelling Catheter: Decision to DC Catheter Urinary Catheter Date of Insertion: 07/12/23 Urinary Catheter Time of Insertion: 23:01 Date Urinary Catheter Removed: 07/18/23 Time Urinary Catheter Discontinued: 06:00 Data 07/20/23 04:09 07/20/23 04:09 Micro: Microbiology 07/13/23 11:28 Anaerobic Culture - Final Foot - #1 A&P Assessment and plan (1) Osteomyelitis of foot: (2) Diabetic wet gangrene of the foot: (3) EZEQUIEL (acute kidney injury): (4) Diabetes: (5) Benign prostatic hyperplasia: Qualifiers: Lower urinary tract symptom presence: unspecified whether lower urinary tract symptoms present Qualified Code(s): N40.0 - Benign prostatic hyperplasia without lower urinary tract symptoms (6) Obesity: Plan Peoples catheter has been removed Patient voiding urine without any difficulty Patient is waiting for placement pending authorization He will get ceftriaxone 2 g daily for 6 weeks Weekly CBC and BMP checked to be checked with the custodial physician as per the case specialistmanager materials management VAC has been removed by Dr. Collier, this will be applied again when he goes to [facility], Attestations Medical Necessity Statement*: Awaiting placement Diagnoses Osteomyelitis of foot M86.9 Diabetic wet gangrene of the foot E11.52 EZEQUIEL (acute kidney injury) N17.9 Diabetes E11.9 Benign prostatic hyperplasia N40.0 Lower urinary tract symptom presence: unspecified whether lower urinary tract symptoms present Obesity E66.9
[2023-07-22 11:00] LABS: Glucose Point of Care 141 mg/dL (70-110)
[2023-07-22] MEDS: insulin lispro 100 unit/1 mL SUBCUT (11:48)
--- NOTE | 2023-07-22 12:19 | PC.SOCIAL ---
IMM Updated Updated pt on IMM. No questions voiced. Provided pt a copy. Initialed, dated, & timed copy in chart.
[2023-07-22 17:09] LABS: Glucose Point of Care 121 mg/dL (70-110)
[2023-07-22 20:08] LABS: Glucose Point of Care 219 mg/dL (70-110)
[2023-07-22] MEDS: insulin glargine 100 units/1 mL 20 UNIT SUBCUT (20:08)
[2023-07-22] MEDS: duloxetine 60 mg Capsule PO (20:09)
[2023-07-22] MEDS: tamsulosin 0.4 mg Capsule 0.8 MG PO (20:09)
[2023-07-22] MEDS: sertraline 50 mg Tablet PO (23:53)
[2023-07-23 03:18] VITALS: BP 138/60; PULSE 54; RESP 15; TEMP 36.4; O2SAT 91
[2023-07-23] MEDS: cefTRIAXone 2,000 MG in sodium chloride 0.9% (plus) 50 ML 100 MG IV (05:06)
[2023-07-23] MEDS: carvedilol 3.125 mg Tablet PO (05:06)
[2023-07-23] MEDS: zinc gluconate 50 mg Tablet PO (05:06)
[2023-07-23 06:31] LABS: Glucose Point of Care 98 mg/dL (70-110)
[2023-07-23 08:00] VITALS: BP 175/74; PULSE 56; RESP 17; TEMP 36.3; O2SAT 98
[2023-07-23] MEDS: sennosides-docusate Tablet 1 TAB PO (08:32)
[2023-07-23] MEDS: sertraline 50 mg Tablet PO (08:32)
[2023-07-23] MEDS: heparin 5,000 unit/mL INJ 1 mL 5000 UNIT SUBCUT (08:33)
[2023-07-23 09:03] VITALS: PULSE 58; RESP 15; O2SAT 96
--- NOTE | 2023-07-23 10:36 | P.PN_ITS ---
Subjective Subjective: No significant overnight events Patient had a bowel movement today as well Currently on room air Cultures from the OR showing strep agalactiae Afebrile No sign of sepsis Patient is awaiting authorization approval to go to residential Patient lives alone, he cannot manage his wound VAC, wound care and IV antibiotics at home Vitals/I&O/Wt Last Vital Signs Temp 97.3 F L 07/23/23 08:00 Pulse 58 L 07/23/23 09:03 Resp 15 07/23/23 09:03 BP 175/74 07/23/23 08:00 Pulse Ox 96 07/23/23 09:03 O2 Del Method Room Air 07/23/23 09:03 O2 Flow Rate 6 07/16/23 08:20 07/22/23 07/23/23 07/23/23 22:59 06:59 14:59 Intake Total 650 / 1490 50 / 1540 360 / 360 Output Total 850 / 1050 650 / 1700 Balance -200 / 440 -600 / -160 360 / 360 Physical Exam Narrative: Patient was using bedside commode Had a bowel movement today Pleasant and cooperative No signs of fluid overload Currently doing well on room air Hard of hearing GCS 15 Pleasant and cooperative Left foot covered in dressing S1, S2 Urinary Catheter Management: Peoples: Cath Placed During This Visit: yes, but has since been removed by the nurse Reason for Continuing Indwelling Catheter: Decision to DC Catheter Urinary Catheter Date of Insertion: 07/12/23 Urinary Catheter Time of Insertion: 23:01 Date Urinary Catheter Removed: 07/18/23 Time Urinary Catheter Discontinued: 06:00 Data 07/20/23 04:09 07/20/23 04:09 A&P Assessment and plan (1) Osteomyelitis of foot: (2) Diabetic wet gangrene of the foot: (3) EZEQUIEL (acute kidney injury): (4) Diabetes: (5) EZEQUIEL (acute kidney injury): (6) PVD (peripheral vascular disease): (7) Atrial fibrillation: Qualifiers: Atrial fibrillation type: longstanding persistent Qualified Code(s): I48.11 - Longstanding persistent atrial fibrillation (8) Benign prostatic hyperplasia: Qualifiers: Lower urinary tract symptom presence: unspecified whether lower urinary tract symptoms present Qualified Code(s): N40.0 - Benign prostatic hyperplasia without lower urinary tract symptoms Plan Osteomyelitis of left foot Patient will require ceftriaxone 2 g daily for 6 weeks He will also require wound VAC and wound care dressing change every 3 days Peer to peer with [employer] done today We will provide them with updated notes and PT notes along duration of antibiotics I have updated my telehealth case manager EZEQUIEL: Resolved postrenal in nature Peoples catheter has been removed Patient is voiding without any difficulty Creatinine improved Type 2 diabetes: Currently on insulin and sliding scale with diabetic diet Paroxysmal A-fib Currently in sinus rhythm not on any anticoagulating agent Constipation: Resolved Full code DVT prophylaxis on board Patient needs wet-to-dry dressing of left with wound VAC wound VAC dressing needs to be changed every 3 days Attestations Medical Necessity Statement*: pending placement Diagnoses Osteomyelitis of foot M86.9 Diabetic wet gangrene of the foot E11.52 EZEQUIEL (acute kidney injury) N17.9 Diabetes E11.9 PVD (peripheral vascular disease) I73.9 Atrial fibrillation I48.11 Atrial fibrillation type: longstanding persistent Benign prostatic hyperplasia N40.0 Lower urinary tract symptom presence: unspecified whether lower urinary t ract symptoms present
--- NOTE | 2023-07-23 11:00 | PM.DCS ---
Discharge Providers Date of Admission: 07/12/23 21:18 Date of Discharge: July 19, 2023 Attending Provider at Admission: Alfred Sullivan MD Attending Provider at Discharge: Alfred Sullivan MD Primary Care Provider: Chon Bradshaw DO Diagnoses at Discharge Discharge Diagnosis (1) Osteomyelitis of foot: Status: Acute (2) Diabetic wet gangrene of the foot: Status: Acute (3) EZEQUIEL (acute kidney injury): Status: Acute (4) Diabetes: Status: Acute (5) PVD (peripheral vascular disease): Status: Acute Permanent problem details: 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 on 07/21/2021 (6) Atrial fibrillation: Status: Acute Qualifiers: Atrial fibrillation type: longstanding persistent Qualified Code(s): I48.11 - Longstanding persistent atrial fibrillation Permanent problem details: Paroxysmal (7) Benign prostatic hyperplasia: Status: Chronic Qualifiers: Lower urinary tract symptom presence: unspecified whether lower urinary tract symptoms present Qualified Code(s): N40.0 - Benign prostatic hyperplasia without lower urinary tract symptoms Reason for Visit Reason for Visit: wound LLE Hospital Course Hospital Course 73-year-old male who was sent from the wound care clinic for worsening of left foot diabetic ulcer, he was diagnosed with wet gangrene, Dr. Collier was consulted, 07/13 patient went for fourth digit amputation with incision and drainage of medial longitudinal arch of left foot patient remained afebrile without significant worsening of leukocytosis, his previous cultures were positive for MSSA, strep agalactiae and Klebsiella sensitive to cephalosporins. Secondary to increased purulence patient went for fourth and fifth ray resection of left foot with application of wound VAC 07/16, his cultures from the OR showed strep agalactiae, PICC line was placed, patient will get ceftriaxone 2 g daily, patient lives alone, he is diabetic with peripheral vascular disease, no sign of ischemic ulcers at this point, he is being discharged to group home, weekly CBC and BMP to be done will follow-up with podiatry outpatient Physical Exam Narrative: Pleasant and cooperative PICC line in place GCS 15 Abdomen soft S1, S2 Doing well on room air Urinary Catheter Management: Peoples: Cath Placed During This Visit: yes, but has since been removed by the nurse Reason for Continuing Indwelling Catheter: Decision to DC Catheter Urinary Catheter Date of Insertion: 07/12/23 Urinary Catheter Time of Insertion: 23:01 Date Urinary Catheter Removed: 07/18/23 Time Urinary Catheter Discontinued: 06:00 Discharge Data Studies Completed and Pending Completed Studies During Hospitalization Category Date Time Status CT abdomen pelvis wo con 07889 Stat Cat Scan 07/12/23 16:56 Completed CXRP [XR chest 1V portable 05160] Routine Exams 07/15/23 11:59 Completed Pending at discharge Category Date Time Status Anaerobic Culture Routine Lab 07/13/23 11:28 Results BMP [Basic Metabolic Panel] AM LABS Lab 07/19/23 04:00 Ordered Vancomycin Trough Timed Lab 07/19/23 05:00 Ordered Pathology: Surgical [PTH] Routine Pth 07/13/23 11:49 Received Pathology: Surgical [PTH] Routine Pth 07/16/23 11:49 Received Radiology Impressions Abdomen/Pelvis CT 07/12/23 16:56 IMPRESSION: 1. Atrophy of the pancreas with pancreatic calcifications, consistent with chronic pancreatitis. No changes of acute pancreatitis noted. 2. Prostate gland is mildly enlarged. 3. Excessive retained stool noted in the colon, suggesting constipation. 4. No acute abnormality demonstrated in the abdomen and pelvis. Laboratory Results WBC 11.23 10^3/uL (3.29-11.43) 07/18/23 05:17 RBC 4.00 10^6/uL (3.85-5.65) 07/18/23 05:17 Hgb 9.80 g/dL (11.27-16.99) L 07/18/23 05:17 Hct 33.3 % (37-53) L 07/18/23 05:17 MCV 83.3 fl (82-101) 07/18/23 05:17 MCH 24.5 pg (27-33) L 07/18/23 05:17 MCHC 29.4 g/dL (30-55) L 07/18/23 05:17 RDW Not Reportable 07/18/23 05:17 Plt Count 322 10^3/cmm (157-399) 07/18/23 05:17 MPV 8.9 fL (7.4-10.4) 07/18/23 05:17 Neut % (Auto) 77.6 % 07/18/23 05:17 Lymph % (Auto) 7.7 % 07/18/23 05:17 [place] % (Auto) 8.3 % 07/18/23 05:17 Eos % (Auto) 5.3 % 07/18/23 05:17 Baso % (Auto) 0.7 % 07/18/23 05:17 Neut # (Auto) 8.71 10^3/uL (1.8-7.7) H 07/18/23 05:17 Lymph # (Auto) 0.9 10^3/uL (0.8-4.8) 07/18/23 05:17 [place] # (Auto) 0.9 10^3/uL (0.2-0.9) 07/18/23 05:17 Eos # (Auto) 0.6 10^3/uL (0.0-0.8) 07/18/23 05:17 Baso # (Auto) 0.1 10^3/uL (0.0-0.1) 07/18/23 05:17 Nucleated RBC % (auto) 0 % 07/18/23 05:17 Nucleated RBCs # 0.0 /100WBC 07/18/23 05:17 Dimorphic RBCs 2+ H 07/15/23 04:16 Hypochromasia 2+ H 07/15/23 04:16 Anisocytosis 1+ H 07/15/23 04:16 Target Cells Trace 07/12/23 15:13 ESR 60 mm/hr (0-10) H 07/12/23 15:13 Sodium 138 mmol/L (136-145) 07/18/23 05:17 Potassium 4.1 mmol/L (3.5-5.1) 07/18/23 05:17 Chloride 101 mmol/L (98-107) 07/18/23 05:17 Carbon Dioxide 29 mmol/L (22-29) 07/18/23 05:17 Anion Gap 12.1 (5-19) 07/18/23 05:17 BUN 24 mg/dL (8-23) H 07/18/23 05:17 Creatinine 1.5 mg/dL (0.7-1.2) H 07/18/23 05:17 GFR Calculation Not Reportable 07/18/23 05:17 Glucose 139 mg/dL (65-115) H 07/18/23 05:17 POC Glucose 278 mg/dL (70-110) H 07/18/23 20:33 Calculated Osmolality 292 mOsm/kg (285-295) 07/18/23 05:17 Lactic Acid 3.1 mmol/L (0.5-2.2) H 07/12/23 16:26 Lactic Acid (Sepsis) 5.5 mmol/L (0.5-2.2) H* 07/12/23 19:35 Lactate 1.2 mmol/L (0.5-2.2) 07/13/23 08:38 Calcium 8.6 mg/dL (8.5-10.5) 07/18/23 05:17 Magnesium 2.1 mg/dL (1.7-2.3) 07/17/23 05:21 Total Bilirubin 0.5 mg/dL (0.15-1.2) 07/12/23 15:13 AST 37 U/L (0-40) 07/12/23 15:13 ALT 22 U/L (0-41) 07/12/23 15:13 Alkaline Phosphatase 103 U/L (40-130) 07/12/23 15:13 C-Reactive Protein 96.0 mg/L (0.0-4.9) H 07/17/23 05:21 NT-Pro-B Natriuret Pep 6373 pg/mL (0-125) H 07/12/23 15:13 Total Protein 7.9 g/dL (6.6-8.7) 07/12/23 15:13 Albumin 4.0 g/dL (3.5-5.2) 07/12/23 15:13 Globulin 3.9 g/dL (1.3-4.6) 07/12/23 15:13 Procalcitonin 0.30 ng/mL (0-0.5) 07/12/23 15:13 Urine Color Yellow (Yellow) 07/12/23 19:30 Urine Appearance Clear (CLEAR) 07/12/23 19:30 Urine pH 5 (5-7) 07/12/23 19:30 Ur Specific [place] 1.015 (1.005-1.030) 07/12/23 19:30 Urine Protein Neg (Negative) 07/12/23 19:30 Urine Glucose (UA) Trace (Normal) H 07/12/23 19:30 Urine Ketones Negative (Negative) 07/12/23 19:30 Urine Blood Neg (Negative) 07/12/23 19:30 Urine Nitrate Negative (Negative) 07/12/23 19:30 Urine Bilirubin Neg (Negative) 07/12/23 19:30 Urine Urobilinogen Neg mg/dL (Negative) 07/12/23 19:30 Ur Leukocyte Esterase Negative (Negative) 07/12/23 19:30 Vancomycin Trough 9.7 ug/mL (10-15) L 07/16/23 04:45 Vitals Last Vital Signs Temp 97.6 F 07/19/23 03:21 Pulse 102 H 07/19/23 03:21 Resp 16 07/19/23 03:21 BP 123/42 07/19/23 03:21 Pulse Ox 100 07/19/23 03:21 O2 Del Method Room Air 07/19/23 03:21 O2 Flow Rate 6 07/16/23 08:20 Discharge Plan Discharge Patient Disposition: Xfer SNF Condition: Stable Prescriptions: New amlodipine 10 mg tablet 10 mg PO DAILY Qty: 60 0RF ceftriaxone 2 gram recon soln 2 g IV DAILY Qty: 10 0RF hydralazine 25 mg tablet 25 mg PO BID Qty: 60 0RF Continued duloxetine [Cymbalta] 60 mg capsule,delayed release(DR/EC) 60 mg PO BEDTIME (DME) FreeStyle Marisela 14 Day Sensor Kit See Rx Instructions .ROUTE .MEDSUPPLY Qty: 1 Rx Instructions: As directed cholecalciferol (vitamin D3) 25 mcg (1,000 unit) capsule 25 mcg PO QAM sertraline 50 mg tablet 50 mg PO QAM (DME) Diabetic shoes with 3 pair of inserts See Rx Instructions .Route .MEDSUPPLY Qty: 1 0RF Rx Instructions: As directed by HOME multivitamin Tablet 1 tab PO QAM Jardiance 25 mg tablet 25 mg PO QAM insulin aspart U-100 [Novolog PenFill U-100 Insulin] 100 unit/mL cartridge 15 - 25 unit SUBCUT AC zinc acetate 50 mg (zinc) Capsule 50 mg PO QAM ketoconazole 2 % cream 1 applic TOPICAL BID PRN (Reason: scaly areas on face) brimonidine-timolol [Combigan] 0.2-0.5 % drops 1 drp ophthalmic (eye) BID Coreg 3.125 mg tablet 3.125 mg PO QAM Rx Instructions: must administer with a meal/food tamsulosin [Flomax] 0.4 mg capsule 0.8 mg PO BEDTIME Qty: 14 0RF potassium chloride 20 mEq tablet extended release 20 meq PO QAM Qty: 30 3RF Changed bumetanide 1 mg tablet 1 mg PO DAILY Qty: 20 0RF Tresiba FlexTouch U-200 200 unit/mL (3 mL) insulin pen 30 unit SUBCUT BEDTIME PRN (Reason: blood sugar) Qty: 9 0RF Discontinued ciprofloxacin HCl 500 mg tablet 500 mg PO BID Qty: 20 0RF linezolid 600 mg tablet 600 mg PO BID Qty: 20 0RF losartan 50 mg tablet 50 mg PO QAM Qty: 90 3RF metolazone 5 mg tablet 5 mg PO QAM Discharge Orders: Discharge Order (Routine); Ordered 07/23/23 Ordered By: Alfred Sullivan Referrals: Chon Bradshaw DO [Primary Care Provider] - Flynn Collier DPM [Physician] - 4-7 days Discharge Diet: Diabetic Discharge Activity: As per PT/OT instructions Discharge Attestations Time Spent in Discharge Care*: greater than 30 min Status at Discharge: Cognitive status at discharge: cognitively intact, Behavioral status at discharge: cooperative, Quality Metrics Clinical Quality Measures [ No reported AMI, CVA or VTE this stay] Coding Level of Care Code Acute Code for Chg Fwd Diagnoses Osteomyelitis of foot M86.9 Diabetic wet gangrene of the foot E11.52 EZEQUIEL (acute kidney injury) N17.9 Diabetes E11.9 PVD (peripheral vascular disease) I73.9 Atrial fibrillation I48.11 Atrial fibrillation type: longstanding persistent Benign prostatic hyperplasia N40.0 Lower urinary tract symptom presence: unspecified whether lower urinary tract symptoms present
[2023-07-23 11:12] LABS: Glucose Point of Care 196 mg/dL (70-110)
[2023-07-23] MEDS: insulin lispro 100 unit/1 mL SUBCUT (11:19)
[2023-07-23 11:52] VITALS: BP 119/62; PULSE 70; RESP 17; TEMP 36.4; O2SAT 92
[2023-07-23 11:52] LABS: SARS Covid-2 Antigen negative (Negative)
--- NOTE | 2023-07-23 11:58 | PC.NURSE ---
PICC line dressing was changed today as well as wtd dressing to patient's left lower foot. IV to right wrist removed as patient is discharging to [facility] today. Mark from social services technician notified that patient would have to private pay as insurance denied, and patient was notified of this by this nurse. Wound care orders placed in discharge instruction.
--- NOTE | 2023-07-23 13:16 | PC.NURSE ---
Report called to Iris FORD at [facility]. She stated she did not know anything about a wound vac but would check.
--- NOTE | 2023-07-23 13:53 | PC.NURSE ---
Discharge Note Patient discharged to [facility] via [facility] accompanied by ready [facility] transportation. Discharge instructions reviewed with patient and/or senior outside sales representative. Mobile pharmacy medications and/or prescriptions provided. Belongings/home medications returned.
[2023-07-23 13:54] VITALS: BP 119/62; PULSE 70; RESP 17; TEMP 36.4; O2SAT 92
== END 2023-07-23 13:55 | disposition skilled nursing facility (03) | DRG 240 ==
LOC: ER 17:40 → MEDSURG 22:14
PROVIDERS: Podiatrist Foot & Ankle Surgery; Admitting Provider Internal Medicine; Emergency Provider Physician Assistant; PCP Internal Medicine; Visit Provider Internal Medicine
PROC: 0Y6W0Z0 Detachment at Left 4th Toe, Complete, Open Approach (ICD-10-PCS; principal; 2023-07-13 10:30)
PROC: 0Y6N0ZD Detachment at Left Foot, Partial 4th Ray, Open Approach (ICD-10-PCS; CPT 28810; principal; 2023-07-16 07:00)
PROC: 0Y6N0ZD Detachment at Left Foot, Partial 4th Ray, Open Approach (ICD-10-PCS; 2023-07-16 07:00)
DX: E11.52 Type 2 diabetes mellitus with diabetic peripheral angiopathy with gangrene (principal); I42.9 Cardiomyopathy, unspecified; I48.11 Longstanding persistent atrial fibrillation; I96 Gangrene, not elsewhere classified; M86.9 Osteomyelitis, unspecified; N17.9 Acute kidney failure, unspecified; E11.69 Type 2 diabetes mellitus with other specified complication; E11.51 Type 2 diabetes mellitus with diabetic peripheral angiopathy without gangrene; E11.40 Type 2 diabetes mellitus with diabetic neuropathy, unspecified; B95.1 Streptococcus, group B, as the cause of diseases classified elsewhere; Z98.62 Peripheral vascular angioplasty status; N40.0 Benign prostatic hyperplasia without lower urinary tract symptoms; Z79.84 Long term (current) use of oral hypoglycemic drugs; Z79.4 Long term (current) use of insulin; I10 Essential (primary) hypertension; E78.5 Hyperlipidemia, unspecified; Z85.828 Personal history of other malignant neoplasm of skin; I25.2 Old myocardial infarction; E66.9 Obesity, unspecified; Z68.28 Body mass index [BMI] 28.0-28.9, adult; Z86.73 Personal history of transient ischemic attack (TIA), and cerebral infarction without residual deficits; Z95.3 Presence of xenogenic heart valve; Z87.891 Personal history of nicotine dependence; Z75.1 Person awaiting admission to adequate facility elsewhere; K59.00 Constipation, unspecified
CPT/HCPCS: 36415; 36416; 36573; 36592; 51702; 71045; 74176; 80048; 80053; 80202; 81003; 82962; 83605; 83735; 83880; 84145; 85025; 85651; 86140; 87040; 87070; 87075; 87205; 87426; 88305; 88307; 88311; 96365; 96367; 96372; 97110; 97161; 97530; 99213; 99285; J0692; J0696; J1644; J1815; J2270; J2543; J2704; J3010; J3370; J3480; J3490; J7030; J7040; J7050

== ENCOUNTER → 2023-07-31 15:11 | Outpatient (BNVA) | payer MEDICARE, SELFPAY | PROVIDERS: PCP Internal Medicine; Visit Provider Podiatrist Foot & Ankle Surgery | DX: E11.42 Type 2 diabetes mellitus with diabetic polyneuropathy; L97.522 Non-pressure chronic ulcer of other part of left foot with fat layer exposed; E11.621 Type 2 diabetes mellitus with foot ulcer; Z79.4 Long term (current) use of insulin | CPT/HCPCS: 99024 ==

== ENCOUNTER → 2023-08-05 14:30 | Outpatient (BNVA) | payer MEDICARE, SELFPAY | PROVIDERS: PCP Internal Medicine; Visit Provider Thoracic Surgery (Cardiothoracic Vascular Surgery) | DX: T87.81 Dehiscence of amputation stump (principal); Y83.8 Other surgical procedures as the cause of abnormal reaction of the patient, or of later complication, without mention of misadventure at the time of the procedure; Z89.422 Acquired absence of other left toe(s); E11.52 Type 2 diabetes mellitus with diabetic peripheral angiopathy with gangrene; E11.621 Type 2 diabetes mellitus with foot ulcer; L97.422 Non-pressure chronic ulcer of left heel and midfoot with fat layer exposed | CPT/HCPCS: 11042; 11044; 11047; 87070; 87176; 87205 ==

== ENCOUNTER → 2023-08-12 13:41 | Outpatient (BNVA) | payer MEDICARE, SELFPAY | PROVIDERS: PCP Internal Medicine; Visit Provider Thoracic Surgery (Cardiothoracic Vascular Surgery) | DX: T87.81 Dehiscence of amputation stump (principal); Y83.8 Other surgical procedures as the cause of abnormal reaction of the patient, or of later complication, without mention of misadventure at the time of the procedure; Z89.422 Acquired absence of other left toe(s); E11.52 Type 2 diabetes mellitus with diabetic peripheral angiopathy with gangrene; E11.621 Type 2 diabetes mellitus with foot ulcer; L97.425 Non-pressure chronic ulcer of left heel and midfoot with muscle involvement without evidence of necrosis | CPT/HCPCS: 11042; 11043; 11045; 97605; A6212; A6237; A6250 ==

== ENCOUNTER → 2023-08-19 14:19 | Outpatient (BNVA) | payer MEDICARE, SELFPAY | PROVIDERS: PCP Internal Medicine; Visit Provider Thoracic Surgery (Cardiothoracic Vascular Surgery) | DX: T87.81 Dehiscence of amputation stump (principal); Y83.8 Other surgical procedures as the cause of abnormal reaction of the patient, or of later complication, without mention of misadventure at the time of the procedure; Z89.422 Acquired absence of other left toe(s); E11.52 Type 2 diabetes mellitus with diabetic peripheral angiopathy with gangrene; E11.621 Type 2 diabetes mellitus with foot ulcer; L97.422 Non-pressure chronic ulcer of left heel and midfoot with fat layer exposed; L98.9 Disorder of the skin and subcutaneous tissue, unspecified | CPT/HCPCS: 11042; 11045; 97597; 97605; A6237; A6250 ==

== ENCOUNTER → 2023-08-20 14:23 | Outpatient (BNVA) | payer MEDICARE, SELFPAY | PROVIDERS: PCP Internal Medicine; Visit Provider Podiatrist Foot & Ankle Surgery | DX: I73.9 Peripheral vascular disease, unspecified (principal); E11.42 Type 2 diabetes mellitus with diabetic polyneuropathy; L60.3 Nail dystrophy; Z89.422 Acquired absence of other left toe(s); Z79.4 Long term (current) use of insulin | CPT/HCPCS: 11721 ==

== ENCOUNTER → 2023-08-26 13:39 | Outpatient (BNVA) | payer MEDICARE, SELFPAY | PROVIDERS: PCP Internal Medicine; Visit Provider Thoracic Surgery (Cardiothoracic Vascular Surgery) | DX: T87.81 Dehiscence of amputation stump (principal); Y83.8 Other surgical procedures as the cause of abnormal reaction of the patient, or of later complication, without mention of misadventure at the time of the procedure; Z89.422 Acquired absence of other left toe(s); E11.52 Type 2 diabetes mellitus with diabetic peripheral angiopathy with gangrene; E11.621 Type 2 diabetes mellitus with foot ulcer; L97.422 Non-pressure chronic ulcer of left heel and midfoot with fat layer exposed; L98.9 Disorder of the skin and subcutaneous tissue, unspecified | CPT/HCPCS: 11042; 11043; 97597; 97605; A6237 ==

== ENCOUNTER → 2023-09-02 15:21 | Outpatient (BNVA) | payer MEDICARE, SELFPAY | PROVIDERS: PCP Internal Medicine; Visit Provider Nurse Practitioner Family | DX: E11.52 Type 2 diabetes mellitus with diabetic peripheral angiopathy with gangrene (principal); E11.621 Type 2 diabetes mellitus with foot ulcer; L97.422 Non-pressure chronic ulcer of left heel and midfoot with fat layer exposed; T87.81 Dehiscence of amputation stump; Y83.8 Other surgical procedures as the cause of abnormal reaction of the patient, or of later complication, without mention of misadventure at the time of the procedure | CPT/HCPCS: 11042; 11045; 97597 ==

== ENCOUNTER → 2023-09-09 14:50 | Outpatient (BNVA) | payer MEDICARE, SELFPAY | PROVIDERS: PCP Internal Medicine; Visit Provider Thoracic Surgery (Cardiothoracic Vascular Surgery) | DX: T87.81 Dehiscence of amputation stump (principal); Y83.8 Other surgical procedures as the cause of abnormal reaction of the patient, or of later complication, without mention of misadventure at the time of the procedure; Z89.422 Acquired absence of other left toe(s); E11.52 Type 2 diabetes mellitus with diabetic peripheral angiopathy with gangrene; E11.621 Type 2 diabetes mellitus with foot ulcer; L97.425 Non-pressure chronic ulcer of left heel and midfoot with muscle involvement without evidence of necrosis; L97.512 Non-pressure chronic ulcer of other part of right foot with fat layer exposed | CPT/HCPCS: 11042; 11043; 87070; 87077; 87176; 87186; 87205; 97597 ==

== ENCOUNTER → 2023-09-16 15:28 | Outpatient (BNVA) | payer MEDICARE, SELFPAY | PROVIDERS: PCP Internal Medicine; Visit Provider Thoracic Surgery (Cardiothoracic Vascular Surgery) | DX: T87.81 Dehiscence of amputation stump (principal); Y83.8 Other surgical procedures as the cause of abnormal reaction of the patient, or of later complication, without mention of misadventure at the time of the procedure; Z89.422 Acquired absence of other left toe(s); E11.52 Type 2 diabetes mellitus with diabetic peripheral angiopathy with gangrene; E11.621 Type 2 diabetes mellitus with foot ulcer; L97.425 Non-pressure chronic ulcer of left heel and midfoot with muscle involvement without evidence of necrosis; Z09 Encounter for follow-up examination after completed treatment for conditions other than malignant neoplasm | CPT/HCPCS: 11043; 11044; A6237; A6250 ==

== ENCOUNTER → 2023-09-23 14:39 | Outpatient (BNVA) | payer MEDICARE, SELFPAY | PROVIDERS: PCP Internal Medicine; Visit Provider Thoracic Surgery (Cardiothoracic Vascular Surgery) | DX: E11.52 Type 2 diabetes mellitus with diabetic peripheral angiopathy with gangrene (principal); E11.621 Type 2 diabetes mellitus with foot ulcer; L97.425 Non-pressure chronic ulcer of left heel and midfoot with muscle involvement without evidence of necrosis; T87.81 Dehiscence of amputation stump; Y83.8 Other surgical procedures as the cause of abnormal reaction of the patient, or of later complication, without mention of misadventure at the time of the procedure; Z89.422 Acquired absence of other left toe(s) | CPT/HCPCS: 11042; 97597; A6237; A6250 ==

== ENCOUNTER → 2023-10-01 13:49 | Outpatient (BNVA) | payer MEDICARE, SELFPAY | PROVIDERS: PCP Internal Medicine; Visit Provider Nurse Practitioner Family | DX: T87.81 Dehiscence of amputation stump (principal); Y83.8 Other surgical procedures as the cause of abnormal reaction of the patient, or of later complication, without mention of misadventure at the time of the procedure; Z89.422 Acquired absence of other left toe(s); E11.52 Type 2 diabetes mellitus with diabetic peripheral angiopathy with gangrene; E11.621 Type 2 diabetes mellitus with foot ulcer; L97.428 Non-pressure chronic ulcer of left heel and midfoot with other specified severity | CPT/HCPCS: 11042; 11043; A6212; A6237; A6250 ==

== ENCOUNTER 2023-10-02 18:19 | Emergency (ER) | payer MEDICARE, SELFPAY ==
[2023-10-02] VITALS (10 sets, daily range): BP systolic 116–150; BP diastolic 39–56; PULSE 50–80; RESP 16–36; TEMP 36.7; O2SAT 86–98; BMI 27.8
[2023-10-02 20:26] LABS: Anion Gap 16.7 (5-19); Blood Urea Nitrogen 38 mg/dL (8-23); Calcium 8.7 mg/dL (8.5-10.5); Carbon Dioxide 27 mmol/L (22-29); Chloride 100 mmol/L (98-107); Glucose 226 mg/dL (65-115); Osmolality Calculated 308 mOsm/kg (285-295); Sodium 141 mmol/L (136-145)
[2023-10-02 20:31] LABS: Potassium 2.7 mmol/L (3.5-5.1)
--- NOTE | 2023-10-02 21:01 | W.ED.RECABL ---
HPI - Recheck/Abnormal Lab/Rx General: Chief Complaint: Recheck/Abnormal Lab/Rx Stated Complaint: abnormal labs Time Seen by Provider: 10/02/23 18:38 History of Present Illness: 73 male presents emergency room with low potassium after having routine blood work done at a local physician's office. Patient has any cough, vomiting, diarrhea or bloody stool. No sick contact or recent foreign travel Review of Systems General: Reports: 10 or more systems reviewed and unremarkable except in HPI and below Const: Denies: fever(s), chills, body aches, change in appetite, change in weight, fatigue, malaise, diaphoresis or change in sleep pattern ENMT: Denies: throat pain, uvular edema or enlarged tonsils Card: Denies: chest pain, palpitations or irregular heart rhythm Resp: Reports: dyspnea GI: Denies: abdominal pain, nausea, vomiting, hematemesis, coffee ground emesis, dysphagia, heartburn, early satiety, diarrhea, constipation, bloating, GI cramping, belching or excessive flatus Musc: Denies: neck pain, back pain, extremity pain, extremity swelling, joint pain, joint swelling, joint redness, joint warmth, joint stiffness, limited range of motion or muscle cramps Lit/Lymph: Denies: easy bruising, easy bleeding, petechiae or purpura PFSH ED PFSH: Medical History Acute hypokalemia EZEQUIEL (acute kidney injury) EZEQUIEL (acute kidney injury) Anticoagulation adequate with anticoagulant therapy Xarelto Aortic valve disease Atrial fibrillation Paroxysmal Benign prostatic hyperplasia Bradycardia Cardiomyopathy Chronic anticoagulation Xarelto Congestive heart failure Diabetes Diabetes 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 Dyslipidemia Gangrene History of nonmelanoma skin cancer HTN (hypertension) Hypertensive urgency MSSA (methicillin susceptible Staphylococcus aureus) infection Non-pressure chronic ulcer of other part of left foot with fat layer exposed NSTEMI (non-ST elevated myocardial infarction) Obesity Osteomyelitis of foot Osteomyelitis of toe of left foot Peripheral arterial disease PVD (peripheral vascular disease) 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 on 07/21/2021 TIA (transient ischemic attack) Varicose vein of leg Surgical History S/P AVR (aortic valve replacement) Bioprosthetic, bovine S/P cataract extraction S/P cholecystectomy Family History Father Diabetes Hypertension Grandfather Diabetes PATERNAL Hypertension PATERNAL Social History Smoking and tobacco/nicotine status: former use of tobacco/nicotine Alcohol intake: former Substance/Drug Use: never Marital status: / service: No Current occupational status: retired Current occupation: retired from [employer] Physical Exam Const: COMMON NORMALS: no acute distress, average body habitus, patient oriented x3, no limitations, healthy appearing, alert and well nourished HENMT: THROAT: no uvular edema Eye: COMMON NORMALS: Equal, round and reactive pupils present, EOMs intact bilaterally, conjunctivae normal, no scleral icterus, no papilledema, normal visual duvall by confrontation and fundi normal bilaterally CONJUNCTIVA: Yes conjunctivae normal PUPIL: Yes Equal, round and reactive pupils present DIRECT OPHTHALMOSCOPY: Yes no papilledema and Yes fundi normal bilaterally Neck/C-Spine: COMMON NORMALS: no JVD Chest: COMMONS NORMALS: normal inspection of the chest, normal palpation of entire chest wall, normal inspection of the breasts and normal palpation of the breasts Breast/axilla inspection: Yes normal inspection of the breasts BREAST/AXILLA PALPATION: Yes normal palpation of the breasts Resp: COMMON NORMALS: normal respiratory effort, No retractions, No use of accessory muscles, clear to auscultation bilaterally and percussion normal AUSCULTATION: clear to auscultation bilaterally PERCUSSION: percussion normal Cardio: COMMON NORMALS: no JVD, regular rate, regular rhythm, S1 normal heart sound present, S2 normal heart sound present, No gallops present (Cardio), No clicks present (Cardio), No murmurs present (Cardio), No rub (Cardio) and Peripheral pulses 2+ throughout RATE: regular rate RHYTHM: regular rhythm HEART SOUNDS: S1 normal heart sound present and S2 normal heart sound present PERIPHERAL PULSES: Peripheral pulses 2+ throughout GI: COMMON NORMALS: Normal to inspection, nondistended, normoactive bowel sounds present, Soft to palpation, non-tender, No hepatosplenomegaly present, no masses and no bruits PALPATION: Yes Soft to palpation and Yes No hepatosplenomegaly present Extremity: COMMON NORMALS: normal to inspection, full ROM, capillary refill normal, no joint enlargement, no clubbing, cyanosis or edema, no calf tenderness and no pedal edema Neuro: COMMON NORMALS: patient oriented x3 SENSORIUM/ORIENTATION: Yes alert Course Vital Signs: Vital signs: Vital Signs Temperature 98.0 F 10/02/23 18:50 Pulse Rate 65 10/03/23 00:34 Respiratory Rate 22 H 10/02/23 21:30 Blood Pressure 147/51 10/03/23 00:34 Pulse Oximetry 100 10/03/23 00:34 Oxygen Delivery Me thod Nasal Cannula 10/03/23 00:34 Oxygen Flow Rate 2 10/02/23 22:56 MDM - Recheck/Abnormal Lab/Rx Medical Decision Making Patient made comfortable emergency room had extensive workup including CMP and mag. Patient was found to have hypokalemia. Was given IV and oral potassium supplement. Upon assessment potassium did improved after the IV and p.o. potassium. Patient was told to increase her potassium to twice a day instead of once a day. I discussed plan with caregiver and close follow-up PCP recommended. Differential Diagnosis Likely encounter for medication refill, encounter for wound recheck, encounter for recheck of burn, encounter for removal of sutures and warfarin-induced coagulopathy Lab Data 10/03/23 00:01 Laboratory Results Sodium 141 mmol/L (136-145) 10/02/23 20:00 Potassium 3.3 mmol/L (3.5-5.1) L 10/03/23 00:01 Chloride 100 mmol/L (98-107) 10/02/23 20:00 Carbon Dioxide 27 mmol/L (22-29) 10/02/23 20:00 Anion Gap 16.7 (5-19) 10/02/23 20:00 BUN 38 mg/dL (8-23) H 10/02/23 20:00 Creatinine 1.7 mg/dL (0.7-1.2) H 10/02/23 20:00 GFR Calculation Not Reportable 10/02/23 20:00 Glucose 226 mg/dL (65-115) H 10/02/23 20:00 Calculated Osmolality 308 mOsm/kg (285-295) H 10/02/23 20:00 Calcium 8.7 mg/dL (8.5-10.5) 10/02/23 20:00 Magnesium 2.5 mg/dL (1.7-2.3) H 10/02/23 20:00 No radiology studies performed this visit Discharge Plan Discharge Patient Disposition: Home Clinical Impression: Acute hypokalemia Chronic renal insufficiency Qualifiers: Chronic kidney disease stage: unspecified stage Qualified Code(s): N18.9 - Chronic kidney disease, unspecified Condition: Stable Prescriptions: New potassium chloride 20 mEq tablet extended release 20 meq PO BID Qty: 20 0RF No Action duloxetine [Cymbalta] 60 mg capsule,delayed release(DR/EC) 60 mg PO BEDTIME (DME) FreeStyle Marisela 14 Day Sensor Kit See Rx Instructions .ROUTE .MEDSUPPLY Qty: 1 Rx Instructions: As directed cholecalciferol (vitamin D3) 25 mcg (1,000 unit) capsule 25 mcg PO QAM sertraline 50 mg tablet 50 mg PO QAM Dakin's Solution 0.5 % solution 1 applic topical BID Qty: 473 0RF levofloxacin 250 mg tablet 250 mg PO DAILY Qty: 10 0RF (DME) Diabetic shoes with 3 pair of inserts See Rx Instructions .Route .MEDSUPPLY Qty: 1 0RF Rx Instructions: As directed by HOME ciprofloxacin HCl 500 mg tablet 500 mg PO BID Qty: 14 0RF amoxicillin-pot clavulanate [Augmentin] 500-125 mg tablet 1 tab PO BID Qty: 10 0RF hydrocodone-acetaminophen 5-325 mg tablet 1 tab PO Q8H PRN (Reason: pain) 7 Days Qty: 12 0RF multivitamin Tablet 1 tab PO QAM Jardiance 25 mg tablet 25 mg PO QAM zinc acetate 50 mg (zinc) Capsule 50 mg PO QAM ketoconazole 2 % cream 1 applic TOPICAL BID PRN (Reason: scaly areas on face) brimonidine-timolol [Combigan] 0.2-0.5 % drops 1 drp ophthalmic (eye) BID Coreg 3.125 mg tablet 3.125 mg PO QAM Rx Instructions: must administer with a meal/food hydralazine 25 mg tablet 25 mg PO BID Qty: 60 0RF Flomax 0.4 mg capsule 0.8 mg PO BEDTIME Qty: 14 0RF bumetanide 1 mg tablet 1 mg PO DAILY Qty: 20 0RF Tresiba FlexTouch U-200 200 unit/mL (3 mL) insulin pen 30 unit SUBCUT BEDTIME PRN (Reason: blood sugar) Qty: 9 0RF potassium chloride 20 mEq tablet extended release 20 meq PO QAM Qty: 30 3RF amlodipine 10 mg tablet 10 mg PO DAILY Qty: 60 0RF ceftriaxone 2 gram recon soln 2 g IV DAILY Qty: 10 0RF Novolog PenFill U-100 Insulin 100 unit/mL cartridge 2 unit SUBCUT AC Qty: 15 0RF Discharge Orders: Discharge ED (Routine); Ordered 10/03/23 Ordered By: Marc Kendall Referrals: Rowdy Sheldon, [Primary Care Provider] - Discharge Diet: Advance as tolerated Discharge Activity: Resume usual activity Patient Instructions: Opioid Safety, Pain Management Activity Restrictions/Additional Instructions: Please increase your potassium to 20 mill equivalent twice a day instead of once a day for the next few days. 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
[2023-10-02 21:33] LABS: Magnesium 2.5 mg/dL (1.7-2.3)
[2023-10-02] MEDS: potassium chloride premix 100 ML 50 MEQ IV (21:33)
[2023-10-02] MEDS: lidocaine 1% INJ 10 mL (per mL) 5 ML IV (21:38)
[2023-10-02] MEDS: potassium chloride oral liq 20 mEq/15 mL UDC 40 MEQ PO (21:39)
[2023-10-03 00:34] VITALS: BP 147/51; PULSE 65; O2SAT 100
[2023-10-03 00:38] LABS: Potassium 3.3 mmol/L (3.5-5.1)
[2023-10-03 01:06] VITALS: BP 147/51; PULSE 63; RESP 18; O2SAT 98
== END 2023-10-03 01:21 | disposition home or self-care (01) ==
PROVIDERS: Emergency Provider Family Medicine; PCP Electrodiagnostic Medicine
DX: E87.6 Hypokalemia (principal); Z79.4 Long term (current) use of insulin; Z87.891 Personal history of nicotine dependence; E11.22 Type 2 diabetes mellitus with diabetic chronic kidney disease; I13.0 Hypertensive heart and chronic kidney disease with heart failure and stage 1 through stage 4 chronic kidney disease, or unspecified chronic kidney disease; N18.9 Chronic kidney disease, unspecified; I50.9 Heart failure, unspecified; I43 Cardiomyopathy in diseases classified elsewhere; E78.5 Hyperlipidemia, unspecified; I25.2 Old myocardial infarction; Z86.73 Personal history of transient ischemic attack (TIA), and cerebral infarction without residual deficits
CPT/HCPCS: 80048; 83735; 84132; 96365; 96366; 96375; 99284; J3480

== ENCOUNTER 2023-10-04 12:36 | Outpatient (CLI) | payer MEDICARE, SELFPAY ==
--- NOTE | 2023-10-04 13:00 | CTR_ITS ---
PROCEDURE INFORMATION: Exam: CTA Abdominal Aorta and Bilateral Lower Extremities (Run-off) With Contrast Exam date and time: 10/04/2023 1:16 PM Age: 73 years old Clinical indication: Condition or disease; Peripheral vascular disease; Prior surgery; Surgery date: 6+ months; Surgery type: Open heart, gb, 2 toes on left foot; Additional info: Peripheral arterial disease TECHNIQUE: Imaging protocol: Computed tomographic angiography of the of the abdominal aorta, pelvis and bilateral lower extremities with contrast. 3D rendering (Not supervised by radiologist): MIP and/or 3D reconstructed images were created by the technologist. Radiation optimization: All CT scans at this facility use at least one of these dose optimization techniques: automated exposure control; mA and/or kV adjustment per patient size (includes targeted exams where dose is matched to clinical indication); or iterative reconstruction. Contrast material: OMNI 350; Contrast volume: 125 ml; Contrast route: INTRAVENOUS (IV); REPORTING DATA: Count of CT and Cardiac NM exams in prior 12 months: This patient has received 2 known CTs and 0 known cardiac nuclear medicine studies in the 12 months prior to the current study. COMPARISON: CT angio chest w abd pel w con 08/27/2022 8:02 PM RADIATION DOSE METRICS: Total DLP (mGy-cm): 1595.98 FINDINGS: Aorta: There is moderate aortic atherosclerotic disease. There is no aortic dissection or aneurysm. Celiac trunk and mesenteric arteries: Mild calcific plaque with less than 50% stenosis of the inferior mesenteric artery. Mild calcific plaque without stenosis of the superior mesenteric artery. Moderate calcific and noncalcific plaque at the celiac artery origin with less than 50% stenosis. Renal arteries: Mild calcific plaque with less than 50% stenosis of the proximal renal arteries bilaterally. Right iliac arteries: Moderate calcific plaque with less than 50% stenosis in the right common and external iliac arteries. Moderate calcific plaque with multifocal high-grade stenosis in the right internal iliac artery. Right femoral/popliteal arteries: Moderate calcific plaque with less than 50% stenosis in the right common femoral artery. Right profundus femoris artery is patent. Severe diffuse calcific plaque in the right superficial femoral artery with multifocal high-grade stenosis proximally. The right mid superficial femoral artery is occluded over a 9 cm segment and is reconstituted more distally by a multiple prominent muscular collaterals. There is severe calcific plaque with multifocal 50-60% stenosis and short segment high-grade stenosis with near occlusion in the right distal superficial femoral artery at Deuce's canal. There is moderate calcific plaque with less than 50% stenosis in the right popliteal artery. Right infrapopliteal arteries: There is severe calcific plaque with multifocal high-grade stenosis in the right tibioperoneal trunk. There is proximal occlusion of the right anterior tibial artery. The right peroneal and posterior tibial arteries are patent to the foot. There is severe calcific plaque and multifocal high-grade stenosis in the right posterior tibial and peroneal arteries. Left iliac arteries: Moderate calcific plaque with less than 50% stenosis in the left common and external iliac arteries. Moderate calcific plaque with less than 50% stenosis in the proximal left internal iliac artery with multifocal high-grade stenosis more distally. Left femoral/popliteal arteries: There is moderate calcific plaque with less than 50% stenosis of the left common femoral artery. There is high-grade stenosis with near occlusion of the left profundus femoris artery. There is severe diffuse calcific plaque of the left superficial femoral artery with multifocal less than 50% stenosis in the proximal portion with severe calcific plaque in the distal superficial femoral artery with high-grade stenosis and near occlusion in the distal left superficial femoral artery at Deuce's canal. Left infrapopliteal arteries: There is moderate calcific plaque with less than 50% stenosis in the left tibioperoneal trunk.There is multifocal high-grade stenosis with multiple short segments of occlusion in the left posterior tibial artery. There is multifocal high-grade stenosis and short segment occlusion in the proximal left peroneal artery. There is focal 60-70% stenosis in the proximal left anterior tibial artery which is patent to the foot. Lungs: There is subsegmental atelectasis in the lung bases. Pleural spaces: Small right and trace left pleural effusions. Heart: There is moderate cardiac enlargement. Liver: The liver is normal. Gallbladder and bile ducts: The gallbladder is absent. There is no intrahepatic or extrahepatic bile duct dilation. Pancreas: There are scattered calcifications in the pancreatic parenchyma consistent with chronic pancreatitis. There is moderate atrophy of the pancreas. Spleen: The spleen is unremarkable. Adrenal glands: The adrenal glands are unremarkable. Kidneys and ureters: The kidneys are unremarkable. No hydronephrosis or stones. No ureteral dilation. Stomach and bowel: The stomach is decompressed, limiting assessment of wall thickness. There is high attenuation material in the gastric lumen. There is a small volume of high attenuation material in the distal small bowel. The small bowel is nondilated. The descending colon is diffusely decompressed limiting assessment of wall thickness. There is mild pericolonic fat stranding along the descending colon. There is mild diffuse mucosal thickening in the sigmoid colon and rectum. Appendix: The appendix is normal. Urinary bladder: There is mild diffuse bladder wall thickening suggesting muscular hypertrophy. Reproductive: There is nonspecific mild enlargement of the prostate gland. Intraperitoneal space: There is no free air or significant intraperitoneal free fluid. Pelvic extraperitoneal space: There is no perirectal edema. Lymph nodes: There is no lymphadenopathy in the retroperitoneum, mesentery, pelvis or inguinal regions. Bones/joints: There is mild degenerative disease in the lumbar spine. The pelvis and hips are unremarkable. There is a wound VAC and underlying soft tissue thickening in the lateral left forefoot. There is amputation of the left 4th and 5th toes. There is amputation of the right 4th toe. Soft tissues: There is diffuse subcutaneous edema in the lower legs and feet bilaterally. The abdominal wall is intact. CT/CT angio abd aorta runof [id number] IMPRESSION: 1. Multifocal high-grade stenosis in the right proximal superficial femoral artery with occlusion over a 9 cm segment and focal high-grade stenosis in the reconstituted distal superficial femoral artery. The distal right superficial femoral artery is reconstituted by prominent muscular collaterals suggesting chronic occlusion. Occlusion is new since 06/09/2021. 2. High-grade stenosis with near occlusion of the left profunda femoris artery. 3. High-grade stenosis with near occlusion in the distal left superficial femoral artery at [facility]. 4. Severe bilateral infrapopliteal artery disease. Details above. 5. Small right and trace left pleural effusions. 6. Possible mild distal colitis. 7. Incidental findings above.
[2023-10-04] MEDS: iohexol 350 mg/mL 500 mL Btl (per mL) IV (13:56)
== END 2023-10-04 12:37 | disposition home or self-care (01) ==
LOC: RAD 12:39
PROVIDERS: PCP Electrodiagnostic Medicine; Visit Provider Thoracic Surgery (Cardiothoracic Vascular Surgery)
DX: I70.203 Unspecified atherosclerosis of native arteries of extremities, bilateral legs (principal)
CPT/HCPCS: 75635; Q9967

== ENCOUNTER → 2023-10-08 13:39 | Outpatient (BNVA) | payer MEDICARE, SELFPAY | PROVIDERS: PCP Electrodiagnostic Medicine; Visit Provider Nurse Practitioner Family | DX: E11.52 Type 2 diabetes mellitus with diabetic peripheral angiopathy with gangrene (principal); E11.621 Type 2 diabetes mellitus with foot ulcer; L97.522 Non-pressure chronic ulcer of other part of left foot with fat layer exposed; L97.422 Non-pressure chronic ulcer of left heel and midfoot with fat layer exposed; L97.511 Non-pressure chronic ulcer of other part of right foot limited to breakdown of skin | CPT/HCPCS: 11042; 97605; A6237; A6250 ==

== ENCOUNTER → 2023-10-14 13:04 | Outpatient (BNVA) | payer MEDICARE, SELFPAY | PROVIDERS: PCP Electrodiagnostic Medicine; Visit Provider Thoracic Surgery (Cardiothoracic Vascular Surgery) | DX: E11.52 Type 2 diabetes mellitus with diabetic peripheral angiopathy with gangrene (principal); E11.621 Type 2 diabetes mellitus with foot ulcer; T87.81 Dehiscence of amputation stump; Y83.8 Other surgical procedures as the cause of abnormal reaction of the patient, or of later complication, without mention of misadventure at the time of the procedure; Z89.422 Acquired absence of other left toe(s); L97.425 Non-pressure chronic ulcer of left heel and midfoot with muscle involvement without evidence of necrosis; L97.511 Non-pressure chronic ulcer of other part of right foot limited to breakdown of skin | CPT/HCPCS: 11042; 11043; 97597 ==

== ENCOUNTER → 2023-10-21 13:07 | Outpatient (BNVA) | payer MEDICARE, SELFPAY | PROVIDERS: PCP Electrodiagnostic Medicine; Visit Provider Thoracic Surgery (Cardiothoracic Vascular Surgery) | DX: T87.81 Dehiscence of amputation stump (principal); Y83.8 Other surgical procedures as the cause of abnormal reaction of the patient, or of later complication, without mention of misadventure at the time of the procedure; Z89.422 Acquired absence of other left toe(s); E11.52 Type 2 diabetes mellitus with diabetic peripheral angiopathy with gangrene; E11.621 Type 2 diabetes mellitus with foot ulcer; L97.425 Non-pressure chronic ulcer of left heel and midfoot with muscle involvement without evidence of necrosis; L97.511 Non-pressure chronic ulcer of other part of right foot limited to breakdown of skin | CPT/HCPCS: 11042; 97597; A6248 ==

== ENCOUNTER → 2023-10-24 13:27 | Outpatient (BNVA) | payer MEDICARE, SELFPAY | PROVIDERS: PCP Electrodiagnostic Medicine; Visit Provider Internal Medicine | DX: I73.9 Peripheral vascular disease, unspecified (principal); E11.42 Type 2 diabetes mellitus with diabetic polyneuropathy; I35.9 Nonrheumatic aortic valve disorder, unspecified; I42.9 Cardiomyopathy, unspecified; E78.5 Hyperlipidemia, unspecified; Z87.891 Personal history of nicotine dependence | CPT/HCPCS: 99215 ==

== ENCOUNTER → 2023-11-04 14:03 | Outpatient (BNVA) | payer MEDICARE, SELFPAY | PROVIDERS: PCP Electrodiagnostic Medicine; Visit Provider Thoracic Surgery (Cardiothoracic Vascular Surgery) | DX: T87.81 Dehiscence of amputation stump (principal); Y83.8 Other surgical procedures as the cause of abnormal reaction of the patient, or of later complication, without mention of misadventure at the time of the procedure; Z89.422 Acquired absence of other left toe(s); E11.52 Type 2 diabetes mellitus with diabetic peripheral angiopathy with gangrene; E11.621 Type 2 diabetes mellitus with foot ulcer; L97.425 Non-pressure chronic ulcer of left heel and midfoot with muscle involvement without evidence of necrosis; L97.511 Non-pressure chronic ulcer of other part of right foot limited to breakdown of skin | CPT/HCPCS: 11042; 11043; 97597; A6219; A6248 ==

== ENCOUNTER 2023-11-05 14:52 | Observation (INO) | payer MEDICARE, SELFPAY ==
[2023-11-05] VITALS (40 sets, daily range): BP systolic 117–124; BP diastolic 41–43; PULSE 55–80; RESP 1–29; TEMP 36.6; O2SAT 94–100; BMI 26.3
[2023-11-05] MEDS: sodium chloride 0.9% 1,000 ML 100 ML IV (15:30)
--- NOTE | 2023-11-05 17:51 | PM.HP ---
Providers/Chief Complaint Admitting Physician: Jaime Moore M.D Primary Care Provider: Rowdy Sheldon DO Chief Complaint: PreHydration for Cath History of Present Illness Surendra Roland is a 73 year old male with significant prior cardiac history and PAD has been admitted for hydration prior to peripheral angiogram. He has nonhealing wounds bilaterally. Left foot wound is deep extending down to adipose tissue. Plan for peripheral angiogram with possible intervention. Review of Systems Const: Denies: fever(s) or chills Card: Reports: chest pain and swelling of feet/ankles (diabetic); Denies: palpitations, irregular heart rhythm, edema, lightheadedness, syncope, pre-syncope, dyspnea on exertion, orthopnea or leg pain with exertion Resp: Denies: dyspnea, productive cough or non-productive cough Musc: Denies: neck pain or back pain Neuro: Denies: headache(s) or dizziness Psych: Reports: anxiety; Denies: depression, suicidal ideation or homicidal ideation Lit/Lymph: Denies: easy bruising or easy bleeding Medications/Allergies Home Medications Medication Instructions Recorded Confirmed Last Taken Type duloxetine 60 mg capsule,delayed 60 mg PO BEDTIME 02/22/20 11/05/23 11/05/23 History release (Cymbalta) empagliflozin 25 mg tablet 25 mg PO QAM 05/06/21 11/05/23 11/05/23 History (Jardiance) multivitamin 1 tab PO QAM 05/06/21 11/05/23 11/05/23 History cholecalciferol (vitamin D3) 25 25 mcg PO QAM 08/01/21 11/05/23 11/05/23 History mcg (1,000 unit) capsule flash glucose sensor (FreeStyle #1 ea 05/01/22 08/20/23 10/11/22 History Marisela 14 Day Sensor kit) sertraline 50 mg tablet 50 mg PO QAM 11/14/22 11/05/23 11/05/23 History Diabetic shoes with 3 pair of #1 ea 11/28/22 08/20/23 Unknown Rx inserts insulin aspart U-100 100 unit/mL 2 unit (0.02 mL) SUBCUT AC #15 mL 07/23/23 11/05/23 11/05/23 Rx subcutaneous cartridge (Novolog PenFill U-100 Insulin aspart) insulin degludec 200 unit/mL (3 30 unit (0.15 mL) SUBCUT BEDTIME 07/23/23 11/05/23 11/05/23 Rx mL) subcutaneous pen (Tresiba PRN blood sugar #9 mL FlexTouch U-200 insulin) tamsulosin 0.4 mg capsule (Flomax) 0.8 mg (2 x 0.4 mg) PO BEDTIME #14 07/23/23 11/05/23 11/04/23 Rx caps potassium chloride 20 mEq 20 meq PO BID #20 tabs 10/03/23 11/05/23 11/05/23 Rx tablet,extended release Vit B-12 1,000 mcg PO DAILY 10/24/23 11/05/23 11/05/23 History bumetanide 1 mg tablet 3 mg PO BID 10/24/23 11/05/23 11/05/23 History carvedilol 3.125 mg tablet (Coreg) 3.125 mg PO BID 10/24/23 11/05/23 11/05/23 History levothyroxine 125 mcg tablet 125 mcg PO DAILY 10/24/23 11/05/23 11/05/23 History losartan 50 mg tablet 50 mg PO DAILY 10/24/23 11/05/23 11/05/23 History metolazone 5 mg tablet 5 mg PO DAILY 10/24/23 11/05/23 11/05/23 History ferrous sulfate 325 mg (65 mg 325 mg PO DAILY 11/06/23 11/06/23 Unknown History iron) tablet (Iron (ferrous sulfate)) Allergies Allergy/AdvReac Type Severity Reaction Status Date / Time No Known Allergies Allergy Verified 10/24/23 13:57 PFSH Acute PFSH: Medical History (Updated 11/06/23 @ 07:26 by Jaime Moore M.D) Dyslipidemia Osteomyelitis of foot Diabetic wet gangrene of the foot Diabetes EZEQUIEL (acute kidney injury) Non-pressure chronic ulcer of other part of left foot with fat layer exposed Cardiomyopathy EZEQUIEL (acute kidney injury) Bradycardia Aortic valve disease Peripheral arterial disease 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 mellitus MSSA (methicillin susceptible Staphylococcus aureus) infection Gangrene PVD (peripheral vascular disease) 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 on 07/21/2021 Acute hypokalemia Osteomyelitis of toe of left foot History of nonmelanoma skin cancer Atrial fibrillation Paroxysmal Benign prostatic hyperplasia Chronic anticoagulation Xarelto Hypertensive urgency NSTEMI (non-ST elevated myocardial infarction) Congestive heart failure Anticoagulation adequate with anticoagulant therapy Xarelto Varicose vein of leg Obesity HTN (hypertension) Diabetes TIA (transient ischemic attack) Surgical History S/P cholecystectomy S/P cataract extraction S/P AVR (aortic valve replacement) Bioprosthetic, bovine Family History Father Diabetes Hypertension Grandfather Diabetes PATERNAL Hypertension PATERNAL Social History Smoking and tobacco/nicotine status: former use of tobacco/nicotine Alcohol intake: former Substance/Drug Use: never Marital status: / service: No Current occupational status: retired Current occupation: retired from [employer] Vitals/I&O/Wt Last Vital Signs O2 Del Method Room Air 11/05/23 15:16 Physical Exam Narrative: GENERAL: Patient is alert, awake and oriented x3. [] NECK: No jugular vein distension. [] HEENT: No cyanosis. No icterus. No pallor. [] HEART: Regular S1 and S2. No murmur, rub or gallop. [] LUNGS: Clear to auscultate bilaterally. [] CENTRAL NERVOUS SYSTEM: Grossly nonfocal. [] EXTREMITIES: Lower extremities with 1+ edema bilaterally. Dressings applied on the feet. Data 11/05/23 19:44 11/06/23 03:30 A&P Assessment and plan (1) Limb ischemia: (2) CKD (chronic kidney disease): (3) Dyslipidemia: Plan Patient has chronic limb threatening limb ischemia and is here for peripheral angiogram. Given his CKD, has been admitted for hydration prior to the peripheral angiogram with possible intervention. N.p.o. past midnight. IV fluids at 50 cc/h. Continue to monitor renal function. Attestations Medical Necessity Statement*: Care expected to cross 2 midnights. Coding Level of Care Code Acute Code for [facility] Diagnoses Limb ischemia I99.8 CKD (chronic kidney disease) N18.9 Dyslipidemia E78.5
[2023-11-05] MEDS: sodium chloride 0.9% 1,000 ML 75 ML IV (18:00)
[2023-11-05 20:16] LABS: Basophils # 0.1 10^3/uL (0.0-0.1); Basophils % 0.8 %; Eosinophils # 0.6 10^3/uL (0.0-0.8); Eosinophils % 7.8 %; Hematocrit 34.8 % (37-53); Lymphocytes # 0.9 10^3/uL (0.8-4.8); Lymphocytes % 11.6 %; Mean Corpuscular HGB Conc 31.6 g/dL (30-55); Mean Corpuscular Hemoglobin 26.5 pg (27-33); Mean Corpuscular Volume 83.9 fl (82-101); Mean Platelet Volume 10.4 fL (7.4-10.4); Monocytes # 0.8 10^3/uL (0.2-0.9); Monocytes % 10.1 %; Neutrophils # 5.45 10^3/uL (1.8-7.7); Neutrophils % 69.3 %; Nucleated Red Blood Cells % 0 %; Platelet Count 183 10^3/cmm (157-399); Red Blood Count 4.15 10^6/uL (3.85-5.65); Red Cell Distribution Width 18.3 % (12.1-15.1); White Blood Count 7.85 10^3/uL (3.29-11.43)
[2023-11-05 20:32] LABS: Alanine Aminotransferase 21 U/L (0-41); Albumin Level 3.7 g/dL (3.5-5.2); Alkaline Phosphatase 70 U/L (40-130); Aspartate Amino Transferase 21 U/L (0-40); Blood Urea Nitrogen 46 mg/dL (8-23); Carbon Dioxide 23 mmol/L (22-29); Chloride 102 mmol/L (98-107); Globulin 3.4 g/dL (1.3-4.6); Glucose 123 mg/dL (65-115); Osmolality Calculated 295 mOsm/kg (285-295); Sodium 136 mmol/L (136-145); Total Bilirubin 0.4 mg/dL (0.15-1.2); Total Protein 7.1 g/dL (6.6-8.7)
[2023-11-05 20:42] LABS: Glucose Point of Care 194 mg/dL (70-110)
[2023-11-05] MEDS: insulin lispro 100 unit/1 mL SUBCUT (21:11)
[2023-11-06] VITALS (17 sets, daily range): BP systolic 104–147; BP diastolic 33–53; PULSE 51–93; RESP 12–17; TEMP 36.4–36.7; O2SAT 95–100; BMI 25.7
[2023-11-06] MEDS: acetaminophen 325 mg Tablet 650 MG PO ×2 (00:50→23:35)
[2023-11-06 04:19] LABS: Anion Gap 19.3 (5-19); Blood Urea Nitrogen 48 mg/dL (8-23); Carbon Dioxide 19 mmol/L (22-29); Chloride 104 mmol/L (98-107); Glucose 155 mg/dL (65-115); Osmolality Calculated 304 mOsm/kg (285-295); Potassium 3.3 mmol/L (3.5-5.1); Sodium 139 mmol/L (136-145)
--- NOTE | 2023-11-06 06:45 | XACV_ITS ---
Ht: 168 cm Wt: 83 kg BSA: 1.99 m2 Any Known Allergies: No known allergies Gender: Male : 1950 Exam Type: Invasive Peripheral Vascular Procedure(s): Procedure Description: Peripheral Cath Diagnostic Procedure Procedure Description: Abdominal aortic angiography Procedure Description: Lower extremities' angiography Procedure Description: Peripheral vascular Intervention Procedure Description: PV Balloon Exam Priority: Routine Abdominal Diagnostic Findings Distal abdominal aorta is patent. Lower Extremity Diagnostic Findings INDICATION: Critical limb ischemia/ non healing wounds/ ulcers. Left Mid-longitudinal Superficial Femoral Artery: 100% stenosis. Left lower extremity findings: Left common iliac artery is patent. Left external iliac artery has 70% stenosis. Left internal iliac artery is patent. Left common femoral artery is patent. Left profunda artery is patent. Left SFA is totally occluded in mid segment. Reconstitutes via collaterals and mid to distal segment. Left popliteal artery is patent. Below the knee all 3 vessels are occluded with only collateral blood supply.. Left External Iliac Artery: 70% stenosis. Right lower extremity findings: Right common iliac artery is patent. Right external iliac artery is patent. Right internal iliac artery is patent. Right common femoral artery is patent. Right profunda artery is patent. Right SFA is totally occluded in ostially. Reconstitutes via collaterals and mid to distal segment. Right popliteal artery is patent. Below the knee All 3 vessels are occluded with only collateral blood supply.. Lower Extremity Interventional Findings Procedure detail: After diagnostic images were obtained, we used a Glidewire and UF catheter to advance the wire into the left SFA up and over from the right side. We then switched short sheath to long sheath. We used 7.0 x 40 mm Vandemere balloon to dilate to the left external iliac artery stenosis. Using seeker support catheter and Glidewire we crossed the totally occluded mid SFA stenosis . We then dilated it with a 6.0 x 200 mm Vandemere balloon. This was followed by dilation with a 6.0 x 100 mm Lutonix drug-coated balloon. At this time final angiogram was obtained that showed brisk flow in the external iliac, SFA to popliteal artery. Below the knee there is diffuse disease with totally occluded vessels . Intention is to improve inflow as below the knee options of revascularization limited. Patient left the receiver/laborer in a stable condition. . Left External Iliac Artery: 70% stenosis treated with AB ARMADA 35 OTW [id number]. Left Mid-longitudinal Superficial Femoral Artery: 70% stenosis treated with AB Vandemere 35 DRAPERY INSPECTOR Catheter [id number] and Lutonix DCB 6 X 100mm. Conclusions Severe left lower extremity PAD. S/p successful revascularization of left external iliac artery with balloon angioplasty. Successful revascularization of totally occluded left SFA with balloon angioplasty. Below the knee all 3 vessels are occluded. Flow is through collateral blood supply. Intention is to improve inflow with revascularization of external iliac and SFA. Will need to medically treat below the knee disease. Severe PAD on the right lower extremity. Will stage revascularization of right lower extremity. Left External Iliac Artery was treated with Balloon. Left Mid-longitudinal Superficial Femoral Artery was treated with two Balloon. Recommendations Dual antiplatelet therapy. Continue following with wound care. We will stage revascularization of right lower extremity later. Outpatient cardiology follow up in 2 weeks. Hemodynamic Data Phase:Rest AO : 147.0 / 37.0 ( 71.0 ) @ 8:07:00 AM 142.0 / 38.0 ( 74.0 ) @ 8:14:00 AM 134.0 / 38.0 ( 74.0 ) @ 8:33:00 AM Access Site Site: Right Femoral artery Sheath Size: 6 Fr Hemost... Method: Suture Hemost... Success: Successful Procedure Details Findings Procedure Consent Obtained. Pre-Procedure Time Out. Identified patient by full name and date of as verbalized by the patient/guarantor. Does the consent match the physician's order: Yes. Accurate & Complete Informed Consent: Yes. Inpatient/Outpatient History & Physical on Chart: Yes. If H&P is completed, is and addenduem needed: Yes; If yes, is the addendum complete: Yes. Visualize and Verify Site with Patient/Guarantor: N/A. Relevant Radiology Images available: Yes. The risks, benefits, and alternatives of sedation and/or procedure were discussed by physician. The patient agrees to continue. Procedure started. Correct patient, site and procedure confirmed by cath team. Current diagnosis: PVD. PERRLA. Strong, equal hand dumb waiter operator bilaterally. Lungs clear x 5 lobes. IV Site on Arrival: 20 gauge in the left anticubital. IV Fluids: 0.9% NaCl at KVO. 0 mL infused prior to receiver/laborer. Oxygen started at 2liters/min via nasal canula. bilateral groins was prepped with chloroprep then draped in the usual sterile fashion. Physician notified. Patient's family unavailable. Equipment: 6F - Femoral. Cardiac Cath Pack. ACIST Manifold Kit Model BT 2000. Heparinized Saline (2 units/mL), 1000 mL bag. Kit, Micropuncture. Pre Procedural Pulses: right posterior tibial was Doppled. Pre Procedural Pulses: right dorsalis pedis was Absent. Pre Procedural Pulses: left dorsalis pedis was Absent. Pre Procedural Pulses: left posterior tibial was Absent. Baseline sample Acquired. HR: 50 BPM. Betina Gandhi RN, FACILITIES SUPERVISOR was relieved by Ev Burkett RN as monitoring person. Physician arrived. Physician scrubbed in. Immediate Pre-Procedure Time Out. Correct Patient: Yes; Correct Procedure: Yes; Correct Site: Yes; Correct Patient Position: Yes; Correct Supplies: Yes; Dried Flammable Prep: Yes; Blood Products Available: N/A;. Physician scrubbed in. Lidocaine 1% infiltrated to the right groin. Arterial access obtained with micropuncture set. 5Fr UF catheter in over wire. standard wire out. Glidewire in through UF catheter. UF catheter advanced above bifurcation of the iliacs. Abdominal aortogram performed in AP @ 10 mL/sec for a total of 30 mL. Glidewire in through UF catheter. Glidewire seated in left SFA. UF catheter out over glidewire. 6fr short sheath exchanged for 6fr 45cm flexor over the glidewire. DSA 10mL/sec for a total of 10ml performed of left external iliac. Side port of sheath attached to Normal Saline flush at KVO to maintain patency. Balloon inserted over the wire to the left external iliac. Inflation number : 1 A AB ARMADA 35 OTW [id number] was prepped and advanced across the External Iliac, Left , then inflated to 6 SHON for 1:00 seconds. Balloon out over wire. Left external iliac selected and arteriogram with runoff performed @ 10 mL/sec for a total of 30 mL. Seeker catheter inserted over the wire. Seeker advanced to distal left SFA. Glidewire out. Hand injection through seeker catheter. Glidewire in through seeker catheter. Seeker out over the glidewire. Balloon inserted over the wire to the superficial femoral. Inflation number : 1 A AB Vandemere 35 DRAPERY INSPECTOR Catheter [id number] was prepped and advanced across the Mid Superficial Femoral, Left , then inflated to 6 SHON for 0:59 seconds. Balloon out over wire. Balloon inserted over the wire to the superficial femoral. Inflation number : 2 A Lutonix DCB 6 X 100mm was prepped and advanced across the Mid Superficial Femoral, Left , then inflated to 7 SHON for 1:02 seconds. Inflation number: 3 The Lutonix DCB 6 X 100mm was reinflated across the Mid Superficial Femoral, Left, to 7 SHON for 1:01 seconds. Balloon out over wire. Left external iliac selected and arteriogram with runoff performed @ 10 mL/sec for a total of 30 mL. DSA performed of ostial SFA. 6fr 45 cm flexor sheath exchanged for 6fr short sheath. Sheath injected in Right common femoral artery and runoff performed. DSA performed through right femoral sheath to better visualize external iliac. A Suture was successful obtaining hemostatsis at the Right Femoral artery insertion site. Sheath(s) sutured into position with 2-0 silk and sterile 4x4's and Op-site applied over the site. No oozing or signs and symptoms of hematoma noted. Arterial sheath flushed and connected to tranducer and pressure bag with heparinized saline. Post Procedure: Pulses reassessed and unchanged. PERRLA. Strong, equal hand dumb waiter operator bilaterally. No VTE prophylaxis required. Post-op diagnosis: Severe Bilaterial PAD, Totally ocluded left SFA status post revascularization with balloon angioplasty. Complications: None. ACT drawn. Results 363 seconds. Therapeutic limits - pre-heparin administration 90-150 seconds and monitoring heparin during a vascular procedure >250 seconds. Medication's Wasted: Lidocaine 1% = 10 mL. Total IV fluids: 50 mL. Estimated blood loss: 5mL-10mL. Responsiveness - Normal response to verbal stimuli; alert and oriented, PERRLA. Airway - Unaffected, no intervention required; spontaneous ventilation. Circulation: W/N/L, pulses unchanged. Nausea/Vomiting: No. Procedure completed. Patient transferred by bed to CPRU. Vital chart was stopped. Procedure Medications Start: 7:52 AM Stop: 7:52 AM Medication: Versed Amount: 1 mg Route: I.V. Start: 7:52 AM Stop: 7:52 AM Medication: Fentanyl Amount: 25 mcg Route: I.V. Start: 8:10 AM Stop: 8:10 AM Medication: Versed Amount: 1 mg Route: I.V. Start: 8:15 AM Stop: 8:15 AM Medication: Heparin Amount: 7000 units Route: I.V. Start: 8:21 AM Stop: 8:21 AM Medication: Fentanyl Amount: 25 mcg Route: I.V. Start: 8:23 AM Stop: 8:23 AM Medication: Versed Amount: 1 mg Route: I.V. Start: 8:38 AM Stop: 8:38 AM Medication: Versed 1 mg and Fentanyl 25 mcg Route: I.V. Start: 8:47 AM Stop: 8:47 AM Medication: Fentanyl Amount: 25 mcg Route: I.V. Start: 8:56 AM Stop: 8:56 AM Medication: Plavix Amount: 300 mg Route: P.O. I, the attending physician, have reviewed and verified all procedure medications. Yes, all medications given per verbal order History/Risk Factors Hypertension: Yes Dyslipidemia: Yes Peripheral Arterial Disease (PAD): Yes Obesity: No Renal Disease: No Tobacco Use: Former Prior Interventions PCI: No CABG: No Valve Surgery: No Report Signatures Finalized by Jaime Moore MD on 11/10/2023 02:09 PM
--- NOTE | 2023-11-06 06:47 | PC.NURSE ---
patient Blood Glucose 189 per patient free style dany
[2023-11-06] MEDS: diphenhydrAMINE 50 mg Capsule PO (06:53)
[2023-11-06] MEDS: aspirin 325 mg Tablet PO (06:53)
[2023-11-06] MEDS: sodium chloride 0.9% 1,000 ML 75 ML IV ×2 (06:55→22:02)
--- NOTE | 2023-11-06 07:54 | W.PM.OPSUD ---
Surgery/Procedure H&P Update DATE OF PROCEDURE: November 06, 2023 DATE H&P PERFORMED: 11/05/23 H&P UPDATE INFORMATION: I have reviewed H&P completed within last 30 days, I have examined patient prior to procedure and No changes to prior documentation PREOP DIAGNOSIS: Critical limb ischemia PRIMARY INDICATION FOR PROCEDURE: Critical limb ischemia PLANNED PROCEDURE: Peripheral angiogram with possible percutaneous intervention PATIENT REASSESSED PRIOR TO SEDATION, WITH NO CHANGE NOTED: Yes PHYSICAL EXAM: alert, oriented x 3, clear to auscultation bilaterally and regular rate & rhythm AIRWAY EVAL/ANESTHESIA PLAN: normal airway, ASA III, Local Anesthesia, Risks, benefits & alternatives of sedation and/or procedure discussed and Patient agrees to continue as planned ADDITIONAL INFORMATION: Moderate sedation
--- NOTE | 2023-11-06 08:09 | PC.SOCIAL ---
IMM Update pg 2 of IMM not updated @ this time as patient is currently in observation status.
--- NOTE | 2023-11-06 10:07 | PC.NURSE ---
Patient arrived from [facility] at 10am. Sheath in place, no hematoma noted.
--- NOTE | 2023-11-06 10:52 | PM.PN ---
Subjective Subjective: Patient had successful revascularization of left SFA and external iliac arteries with balloon angioplasty. Below the knee has severe diffuse disease. Vitals/I&O/Wt Last Vital Signs Temp 97.8 F 11/06/23 04:00 Pulse 55 L 11/06/23 10:15 Resp 12 11/06/23 10:15 BP 147/51 11/06/23 09:43 Pulse Ox 100 11/06/23 10:15 O2 Del Method Nasal Cannula 11/06/23 10:15 O2 Flow Rate 2 11/06/23 10:15 11/05/23 11/06/23 11/06/23 22:59 06:59 14:59 Intake Total 360 / 360 968.75 / 1328.75 Output Total 400 / 400 475 / 875 Balance -40 / -40 493.75 / 453.75 Weight last 48 hrs Weight 179 lb 1 oz Weight 183 lb 8 oz Physical Exam Narrative: GENERAL: Patient is alert, awake and oriented x3. [] NECK: No jugular vein distension. [] HEENT: No cyanosis. No icterus. No pallor. [] HEART: Regular S1 and S2. No murmur, rub or gallop. [] LUNGS: Clear to auscultate bilaterally. [] CENTRAL NERVOUS SYSTEM: Grossly nonfocal. [] EXTREMITIES: Lower extremities with 1+ edema bilaterally. Dressings applied on the feet. Data 11/07/23 03:19 11/07/23 03:19 A&P Assessment and plan (1) Limb ischemia: (2) CKD (chronic kidney disease): (3) Dyslipidemia: Plan Patient had successful revascularization of left SFA and external iliac artery with balloon angioplasty. Elevated put him on aspirin and Plavix. Continue IV hydration for another 12 hours. Monitor renal function. If stable, would be discharged home tomorrow. Attestations Medical Necessity Statement*: Care expected to cross 2 midnights. Patient had successful revascularization of left lower extremity. Will need further diuresis before discharge Coding Level of Care Code Acute Code for [facility] Diagnoses Limb ischemia I99.8 CKD (chronic kidney disease) N18.9 Dyslipidemia E78.5
[2023-11-06 11:19] LABS: Glucose Point of Care 195 mg/dL (70-110)
[2023-11-06] MEDS: carvedilol 3.125 mg Tablet PO ×2 (11:27→18:17)
[2023-11-06] MEDS: insulin lispro 100 unit/1 mL SUBCUT ×3 (11:27→22:01)
[2023-11-06] MEDS: levothyroxine 125 mcg Tablet PO (11:27)
[2023-11-06] MEDS: sodium chloride 0.9% 1,000 ML 100 ML IV (11:43)
[2023-11-06 12:25] LABS: Partial Thromboplastin Time 56.6 SECONDS (23.9-36.7)
[2023-11-06 13:52] LABS: Partial Thromboplastin Time 36.3 SECONDS (23.9-36.7)
[2023-11-06 18:17] LABS: Glucose Point of Care 244 mg/dL (70-110)
[2023-11-06 20:51] LABS: Glucose Point of Care 290 mg/dL (70-110)
[2023-11-07] VITALS: BP 137/59; PULSE 61; RESP 16; TEMP 36.4; O2SAT 97
--- NOTE | 2023-11-07 00:15 | PC.NURSE ---
Patient's friend ,that cares for patient diabetic ulcers on both feet, came in this shift cleaned and redressed all wounds on both feet with personal supplies.
[2023-11-07 03:53] LABS: Basophils # 0.1 10^3/uL (0.0-0.1); Basophils % 0.6 %; Eosinophils # 0.6 10^3/uL (0.0-0.8); Eosinophils % 6.9 %; Hematocrit 33.1 % (37-53); Lymphocytes # 0.8 10^3/uL (0.8-4.8); Lymphocytes % 9.3 %; Mean Corpuscular HGB Conc 30.8 g/dL (30-55); Mean Corpuscular Hemoglobin 25.9 pg (27-33); Mean Platelet Volume 10.7 fL (7.4-10.4); Monocytes # 0.7 10^3/uL (0.2-0.9); Monocytes % 8.5 %; Neutrophils # 6.31 10^3/uL (1.8-7.7); Neutrophils % 74.3 %; Nucleated Red Blood Cells % 0 %; Platelet Count 158 10^3/cmm (157-399); Red Blood Count 3.94 10^6/uL (3.85-5.65); Red Cell Distribution Width 18.6 % (12.1-15.1); White Blood Count 8.49 10^3/uL (3.29-11.43)
[2023-11-07 04:05] LABS: Anion Gap 15.6 (5-19); Blood Urea Nitrogen 42 mg/dL (8-23); Calcium 8.7 mg/dL (8.5-10.5); Carbon Dioxide 18 mmol/L (22-29); Chloride 110 mmol/L (98-107); Glucose 101 mg/dL (65-115); Osmolality Calculated 301 mOsm/kg (285-295); Potassium 3.6 mmol/L (3.5-5.1); Sodium 140 mmol/L (136-145)
[2023-11-07 04:55] VITALS: BP 142/58; PULSE 67; RESP 18; TEMP 36.7; O2SAT 95
[2023-11-07 05:33] VITALS: PULSE 59
[2023-11-07 06:00] VITALS: BMI 25.7
[2023-11-07] MEDS: sertraline 50 mg Tablet PO (06:17)
[2023-11-07 07:30] VITALS: BP 136/40; PULSE 62; RESP 16; TEMP 36.6; O2SAT 97
--- NOTE | 2023-11-07 07:49 | P.DS_ITS ---
Discharge Providers Date of Admission: 11/05/23 14:52 Date of Discharge: November 07, 2023 Attending Provider at Admission: Jaime Moore M.D Attending Provider at Discharge: Jaime Moore M.D Primary Care Provider: Rowdy Sheldon DO Diagnoses at Discharge Discharge Diagnosis (1) Limb ischemia: Status: Inactive (2) CKD (chronic kidney disease): Status: Chronic (3) Dyslipidemia: Status: Acute Reason for Visit Reason for Visit: PreHydration for Cath Brief History: 73 year old male with significant prior cardiac history and PAD has been admitted for hydration prior to peripheral angiogram. He has nonhealing wounds bilaterally. Left foot wound is deep extending down to adipose tissue. Plan for peripheral angiogram with possible intervention. Hospital Course Hospital Course Patient is peripheral angiogram demonstrated severe left external iliac artery stenosis that underwent successful revascularization with balloon angioplasty. Patient also had totally occluded mid SFA stenosis that underwent successful revascularization with balloon angioplasty. Below the knee all 3 vessels are totally occluded with collateral blood supply. That will be medically managed. Intention for revascularization was to improve inflow for ultimately increasing outflow to the foot. Patient also has severe right lower extremity PAD. Will need staged procedure for revascularization. Patient discharged home on dual antiplatelet therapy. Will follow with wound care. Renal function was stable. Physical Exam Narrative: GENERAL: Patient is alert, awake and oriented x3. [] NECK: No jugular vein distension. [] HEENT: No cyanosis. No icterus. No pallor. [] HEART: Regular S1 and S2. No murmur, rub or gallop. [] LUNGS: Clear to auscultate bilaterally. [] CENTRAL NERVOUS SYSTEM: Grossly nonfocal. [] EXTREMITIES: Lower extremities with 1+ edema bilaterally. Dressings applied on the feet. 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 Exams 11/06/23 06:45 Ordered Laboratory Results WBC 8.49 10^3/uL (3.29-11.43) 11/07/23 03:19 RBC 3.94 10^6/uL (3.85-5.65) 11/07/23 03:19 Hgb 10.20 g/dL (11.27-16.99) L 11/07/23 03:19 Hct 33.1 % (37-53) L 11/07/23 03:19 MCV 84.0 fl (82-101) 11/07/23 03:19 MCH 25.9 pg (27-33) L 11/07/23 03:19 MCHC 30.8 g/dL (30-55) 11/07/23 03:19 RDW 18.6 % (12.1-15.1) H 11/07/23 03:19 Plt Count 158 10^3/cmm (157-399) 11/07/23 03:19 MPV 10.7 fL (7.4-10.4) H 11/07/23 03:19 Neut % (Auto) 74.3 % 11/07/23 03:19 Lymph % (Auto) 9.3 % 11/07/23 03:19 [place] % (Auto) 8.5 % 11/07/23 03:19 Eos % (Auto) 6.9 % 11/07/23 03:19 Baso % (Auto) 0.6 % 11/07/23 03:19 Neut # (Auto) 6.31 10^3/uL (1.8-7.7) 11/07/23 03:19 Lymph # (Auto) 0.8 10^3/uL (0.8-4.8) 11/07/23 03:19 [place] # (Auto) 0.7 10^3/uL (0.2-0.9) 11/07/23 03:19 Eos # (Auto) 0.6 10^3/uL (0.0-0.8) 11/07/23 03:19 Baso # (Auto) 0.1 10^3/uL (0.0-0.1) 11/07/23 03:19 Nucleated RBC % (auto) 0 % 11/07/23 03:19 Nucleated RBCs # 0.0 /100WBC 11/07/23 03:19 APTT 36.3 SECONDS (23.9-36.7) 11/06/23 13:00 Sodium 140 mmol/L (136-145) 11/07/23 03:19 Potassium 3.6 mmol/L (3.5-5.1) 11/07/23 03:19 Chloride 110 mmol/L (98-107) H 11/07/23 03:19 Carbon Dioxide 18 mmol/L (22-29) L 11/07/23 03:19 Anion Gap 15.6 (5-19) 11/07/23 03:19 BUN 42 mg/dL (8-23) H 11/07/23 03:19 Creatinine 1.4 mg/dL (0.7-1.2) H 11/07/23 03:19 GFR Calculation Not Reportable 11/07/23 03:19 Glucose 101 mg/dL (65-115) 11/07/23 03:19 POC Glucose 290 mg/dL (70-110) H 11/06/23 20:44 Calculated Osmolality 301 mOsm/kg (285-295) H 11/07/23 03:19 Calcium 8.7 mg/dL (8.5-10.5) 11/07/23 03:19 Total Bilirubin 0.4 mg/dL (0.15-1.2) 11/05/23 19:44 AST 21 U/L (0-40) 11/05/23 19:44 ALT 21 U/L (0-41) 11/05/23 19:44 Alkaline Phosphatase 70 U/L (40-130) 11/05/23 19:44 Total Protein 7.1 g/dL (6.6-8.7) 11/05/23 19:44 Albumin 3.7 g/dL (3.5-5.2) 11/05/23 19:44 Globulin 3.4 g/dL (1.3-4.6) 11/05/23 19:44 Vitals Last Vital Signs Temp 98.0 F 11/07/23 04:55 Pulse 59 L 11/07/23 05:33 Resp 18 11/07/23 04:55 BP 142/58 11/07/23 04:55 Pulse Ox 95 11/07/23 04:55 O2 Del Method Room Air 11/07/23 00:00 O2 Flow Rate 2 11/06/23 13:24 Discharge Plan Discharge Patient Disposition: Home Condition: Stable Prescriptions: New clopidogrel 75 mg Tablet 75 mg PO DAILY Qty: 90 0RF aspirin 81 mg Tablet,Delayed Release (Dr/Ec) 81 mg PO DAILY Qty: 90 2RF Continued duloxetine [Cymbalta] 60 mg capsule,delayed release(DR/EC) 60 mg PO BEDTIME (DME) FreeStyle Marisela 14 Day Sensor Kit See Rx Instructions .ROUTE .MEDSUPPLY Qty: 1 Rx Instructions: As directed cholecalciferol (vitamin D3) 25 mcg (1,000 unit) capsule 25 mcg PO QAM sertraline 50 mg tablet 50 mg PO QAM bumetanide 1 mg tablet 3 mg PO BID metolazone 5 mg tablet 5 mg PO DAILY levothyroxine 125 mcg tablet 125 mcg PO DAILY losartan 50 mg tablet 50 mg PO DAILY Vit B-12 tablet 1,000 mcg PO DAILY (DME) Diabetic shoes with 3 pair of inserts See Rx Instructions .Route .MEDSUPPLY Qty: 1 0RF Rx Instructions: As directed by HOME multivitamin Tablet 1 tab PO QAM Jardiance 25 mg tablet 25 mg PO QAM tamsulosin [Flomax] 0.4 mg capsule 0.8 mg PO BEDTIME Qty: 14 0RF insulin degludec [Tresiba FlexTouch U-200] 200 unit/mL (3 mL) insulin pen 30 unit SUBCUT BEDTIME PRN (Reason: blood sugar) Qty: 9 0RF insulin aspart U-100 [Novolog PenFill U-100 Insulin] 100 unit/mL cartridge 2 unit SUBCUT AC Qty: 15 0RF Coreg 3.125 mg tablet 3.125 mg PO BID Rx Instructions: must administer with a meal/food potassium chloride 20 mEq tablet extended release 20 meq PO BID Qty: 20 0RF Iron (ferrous sulfate) 325 mg (65 mg iron) Tablet 325 mg PO DAILY Discharge Orders: Discharge Order (Routine); Ordered 11/07/23 Ordered By: Jaime Moore Referrals: Ama Garcia FNP [Nurse Practitioner] - 11/18/23 2:30 pm Rowdy Sheldon DO [Staff Physician] - 11/13/23 10:50 am Discharge Diet: Diabetic Discharge Activity: Increase activity as tolerated Patient Instructions: Clopidogrel (By mouth) (Plavix), Peripheral Vascular Angioplasty (DC), Opioid Safety Discharge Attestations Time Spent in Discharge Care*: less than 30 min Status at Discharge: Cognitive status at discharge: cognitively intact , Behavioral status at discharge: cooperative , Quality Metrics Clinical Quality Measures [ No reported AMI, CVA or VTE this stay] Coding Level of Care Code Acute Code for g [facility] Diagnoses Limb ischemia I99.8 CKD (chronic kidney disease) N18.9 Dyslipidemia E78.5
[2023-11-07 08:04] VITALS: BP 136/40; PULSE 62; RESP 16; TEMP 36.6; O2SAT 97
[2023-11-07 08:38] VITALS: BP 136/40
[2023-11-07] MEDS: levothyroxine 125 mcg Tablet PO (08:38)
[2023-11-07] MEDS: carvedilol 3.125 mg Tablet PO (08:38)
[2023-11-07] MEDS: losartan 50 mg Tablet PO (08:38)
[2023-11-07] MEDS: aspirin 81 mg EC Tablet PO (08:38)
[2023-11-07] MEDS: clopidogrel 75 mg Tablet PO (08:38)
== END 2023-11-07 12:04 | disposition home or self-care (01) ==
PROVIDERS: Admitting Provider Internal Medicine; PCP Electrodiagnostic Medicine; Visit Provider Internal Medicine
DX: I99.8 Other disorder of circulatory system (principal); E11.22 Type 2 diabetes mellitus with diabetic chronic kidney disease; N18.9 Chronic kidney disease, unspecified; E78.5 Hyperlipidemia, unspecified; I73.9 Peripheral vascular disease, unspecified; E11.42 Type 2 diabetes mellitus with diabetic polyneuropathy; I48.0 Paroxysmal atrial fibrillation; N40.0 Benign prostatic hyperplasia without lower urinary tract symptoms; Z79.01 Long term (current) use of anticoagulants; I25.2 Old myocardial infarction; Z86.73 Personal history of transient ischemic attack (TIA), and cerebral infarction without residual deficits; Z87.891 Personal history of nicotine dependence; I10 Essential (primary) hypertension
CPT/HCPCS: 36415; 36416; 37220; 37224; 75625; 75716; 80048; 80053; 82962; 85025; 85347; 85730; 96372; 99152; 99153; C1725; C1769; C1887; C1894; C2623; G0378; G0379; J1815; J7030; Q0163; Q9967

== ENCOUNTER → 2023-11-12 13:38 | Outpatient (BNVA) | payer MEDICARE, SELFPAY | PROVIDERS: PCP Electrodiagnostic Medicine; Visit Provider Thoracic Surgery (Cardiothoracic Vascular Surgery) | DX: T87.81 Dehiscence of amputation stump (principal); Y83.8 Other surgical procedures as the cause of abnormal reaction of the patient, or of later complication, without mention of misadventure at the time of the procedure; Z89.422 Acquired absence of other left toe(s); E11.52 Type 2 diabetes mellitus with diabetic peripheral angiopathy with gangrene; E11.621 Type 2 diabetes mellitus with foot ulcer; L97.421 Non-pressure chronic ulcer of left heel and midfoot limited to breakdown of skin; L97.511 Non-pressure chronic ulcer of other part of right foot limited to breakdown of skin | CPT/HCPCS: 97597; A6248 ==

== ENCOUNTER → 2023-11-19 13:38 | Outpatient (BNVA) | payer MEDICARE, SELFPAY | PROVIDERS: PCP Electrodiagnostic Medicine; Visit Provider Thoracic Surgery (Cardiothoracic Vascular Surgery) | DX: T87.81 Dehiscence of amputation stump (principal); Y83.8 Other surgical procedures as the cause of abnormal reaction of the patient, or of later complication, without mention of misadventure at the time of the procedure; Z89.422 Acquired absence of other left toe(s); E11.621 Type 2 diabetes mellitus with foot ulcer; L97.423 Non-pressure chronic ulcer of left heel and midfoot with necrosis of muscle; L97.511 Non-pressure chronic ulcer of other part of right foot limited to breakdown of skin | CPT/HCPCS: 97597; A6021; A6219; A6248 ==

== ENCOUNTER → 2023-11-26 13:35 | Outpatient (BNVA) | payer MEDICARE, SELFPAY | PROVIDERS: PCP Electrodiagnostic Medicine; Visit Provider Thoracic Surgery (Cardiothoracic Vascular Surgery) | DX: T87.81 Dehiscence of amputation stump (principal); Y83.8 Other surgical procedures as the cause of abnormal reaction of the patient, or of later complication, without mention of misadventure at the time of the procedure; Z89.512 Acquired absence of left leg below knee; E11.52 Type 2 diabetes mellitus with diabetic peripheral angiopathy with gangrene; E11.621 Type 2 diabetes mellitus with foot ulcer; L97.425 Non-pressure chronic ulcer of left heel and midfoot with muscle involvement without evidence of necrosis; L97.512 Non-pressure chronic ulcer of other part of right foot with fat layer exposed | CPT/HCPCS: 11042; 97597 ==

== ENCOUNTER → 2023-11-27 13:19 | Outpatient (BNVA) | payer MEDICARE, SELFPAY | PROVIDERS: PCP Electrodiagnostic Medicine; Visit Provider Podiatrist Foot & Ankle Surgery | DX: I73.9 Peripheral vascular disease, unspecified (principal); E11.42 Type 2 diabetes mellitus with diabetic polyneuropathy; Z89.421 Acquired absence of other right toe(s); Z79.4 Long term (current) use of insulin | CPT/HCPCS: 99213 ==

== ENCOUNTER → 2023-11-28 15:29 | Outpatient (BNVA) | payer MEDICARE, SELFPAY | PROVIDERS: PCP Electrodiagnostic Medicine; Visit Provider Nurse Practitioner Family | DX: I73.9 Peripheral vascular disease, unspecified (principal) | CPT/HCPCS: 36415; 80048; 99213 ==

== ENCOUNTER 2023-12-02 14:18 | Emergency (ER) | payer MEDICARE, SELFPAY ==
[2023-12-02 14:32] VITALS: BP 127/53; PULSE 63; RESP 12; TEMP 36.8; O2SAT 100; BMI 26.5
--- NOTE | 2023-12-02 15:29 | W.ED.EXTPRO ---
HPI - Extremity Problem General: Chief complaint: Extremity Injury, Lower Stated complaint: right foot pinky toe turning black Time Seen by Provider: 12/02/23 15:12 Source: patient Mode of arrival: ambulatory Limitations: no limitations History of Present Illness: 73-year-old male history of peripheral vascular disease he been following with Dr. Duggan for necrosis to his right pinky toe he has been evaluated for possible amputation he states over the last 3 to 4 days has changed color from blue to black has had some slight pain denies any fever Associated symptoms: Deny chest pain or fever(s) Review of Systems Const: Denies: fever(s), chills, body aches or change in appetite Eyes: Denies: blurry vision or eye discomfort Card: Denies: chest pain Resp: Denies: dyspnea GI: Denies: abdominal pain, nausea, vomiting or diarrhea Musc: Reports: extremity pain; Denies: neck pain or back pain PFSH ED PFSH: Medical History Peripheral arterial disease Limb ischemia Dyslipidemia Osteomyelitis of foot Diabetic wet gangrene of the foot Diabetes EZEQUIEL (acute kidney injury) Non-pressure chronic ulcer of other part of left foot with fat layer exposed Cardiomyopathy EZEQUIEL (acute kidney injury) Bradycardia Aortic valve disease 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 mellitus MSSA (methicillin susceptible Staphylococcus aureus) infection Gangrene PVD (peripheral vascular disease) 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 on 07/21/2021 Acute hypokalemia Osteomyelitis of toe of left foot History of nonmelanoma skin cancer Atrial fibrillation Paroxysmal Benign prostatic hyperplasia Chronic anticoagulation Xarelto Hypertensive urgency NSTEMI (non-ST elevated myocardial infarction) Congestive heart failure Anticoagulation adequate with anticoagulant therapy Xarelto Varicose vein of leg Obesity HTN (hypertension) Diabetes TIA (transient ischemic attack) Surgical History S/P cholecystectomy S/P cataract extraction S/P AVR (aortic valve replacement) Bioprosthetic, bovine Family History Father Diabetes Hypertension Grandfather Diabetes PATERNAL Hypertension PATERNAL Social History Smoking and tobacco/nicotine status: former use of tobacco/nicotine Alcohol intake: former Substance/Drug Use: never Marital status: / service: No Current occupational status: retired Current occupation: retired from [employer] Physical Exam Const: COMMON NORMALS: no acute distress, patient oriented x3 and healthy appearing HENMT: COMMON NORMALS: normocephalic and atraumatic HEAD & SCALP: normocephalic and atraumatic Eye: COMMON NORMALS: conjunctivae normal CONJUNCTIVA: Yes conjunctivae normal Neck/C-Spine: COMMON NORMALS: full ROM and supple Chest: COMMONS NORMALS: normal inspection of the chest Resp: COMMON NORMALS: normal respiratory effort Extremity: COMMON NORMALS: full ROM NARRATIVE EXTREMITY EXAM: Necrotic right pinky toe no foul-smelling no drainage no cellulitis Neuro: COMMON NORMALS: patient oriented x3, moves all extremities and no focal motor deficits Psych: COMMON NORMALS: mental status grossly normal, Normal thought process present and cooperative THOUGHT PROCESS: Normal thought process present Skin: COMMON NORMALS: no rashes or lesions noted and no wounds GENERAL SKIN EXAM: no rashes or lesions noted Course Vital Signs: Vital signs: Vital Signs Temperature 98.2 F 12/02/23 14:32 Pulse Rate 63 12/02/23 14:32 Respiratory Rate 12 12/02/23 14:32 Blood Pressure 127/53 12/02/23 14:32 Pulse Oximetry 100 12/02/23 14:32 Oxygen Delivery Me thod Room Air 12/02/23 14:32 MDM - Extremity (Nontraumatic) Medical Decision Making Patient presents here with a necrotic right pinky toe has been followed with Dr. Duggan I did send images to Dr. Duggan who knows patient I spoke to him he states that he is going to see him in office this week and schedule him an outpatient amputation of toe he has no signs of acute infection he is stable for discharge and to follow-up closely with return if worsening. No radiology studies performed this visit Discharge Plan Discharge Patient Disposition: Home Clinical Impression: Necrosis of toe Condition: Stable Prescriptions: New hydrocodone-acetaminophen 5-325 mg tablet 1 tab PO Q6H PRN (Reason: pain) Qty: 14 0RF No Action duloxetine [Cymbalta] 60 mg capsule,delayed release(DR/EC) 60 mg PO BEDTIME (DME) FreeStyle Marisela 14 Day Sensor Kit See Rx Instructions .ROUTE .MEDSUPPLY Qty: 1 Rx Instructions: As directed cholecalciferol (vitamin D3) 25 mcg (1,000 unit) capsule 25 mcg PO QAM sertraline 50 mg tablet 50 mg PO QAM bumetanide 1 mg tablet 3 mg PO BID metolazone 5 mg tablet 5 mg PO DAILY levothyroxine 125 mcg tablet 125 mcg PO DAILY losartan 50 mg tablet 50 mg PO DAILY Vit B-12 tablet 1,000 mcg PO DAILY (DME) Diabetic shoes with 3 pair of inserts See Rx Instructions .Route .MEDSUPPLY Qty: 1 0RF Rx Instructions: As directed by HOME multivitamin Tablet 1 tab PO QAM Jardiance 25 mg tablet 25 mg PO QAM tamsulosin [Flomax] 0.4 mg capsule 0.8 mg PO BEDTIME Qty: 14 0RF insulin degludec [Tresiba FlexTouch U-200] 200 unit/mL (3 mL) insulin pen 30 unit SUBCUT BEDTIME PRN (Reason: blood sugar) Qty: 9 0RF insulin aspart U-100 [Novolog PenFill U-100 Insulin] 100 unit/mL cartridge 2 unit SUBCUT AC Qty: 15 0RF Coreg 3.125 mg tablet 3.125 mg PO BID Rx Instructions: must administer with a meal/food potassium chloride 20 mEq tablet extended release 20 meq PO BID Qty: 20 0RF Iron (ferrous sulfate) 325 mg (65 mg iron) Tablet 325 mg PO DAILY clopidogrel 75 mg Tablet 75 mg PO DAILY Qty: 90 0RF aspirin 81 mg Tablet,Delayed Release (Dr/Ec) 81 mg PO DAILY Qty: 90 2RF Discharge Orders: Discharge ED (Routine); Ordered 12/02/23 Ordered By: Lyn Dial Referrals: Rowdy Sheldon DO [Primary Care Provider] - Garrick Duggan DPM [Physician] - 1-3 days Discharge Diet: Advance as tolerated Discharge Activity: Resume usual activity Patient Instructions: Dislocation - Toe Coding Level of Care Code ED 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
== END 2023-12-02 15:49 | disposition home or self-care (01) ==
PROVIDERS: Emergency Provider Emergency Medicine; PCP Electrodiagnostic Medicine
DX: Z53.9 Procedure and treatment not carried out, unspecified reason (principal)
CPT/HCPCS: 99283

== ENCOUNTER → 2023-12-03 09:31 | Outpatient (BNVA) | payer MEDICARE, SELFPAY | PROVIDERS: PCP Electrodiagnostic Medicine; Visit Provider Podiatrist Foot & Ankle Surgery | DX: I73.9 Peripheral vascular disease, unspecified (principal); E11.42 Type 2 diabetes mellitus with diabetic polyneuropathy; Z89.421 Acquired absence of other right toe(s); Z79.4 Long term (current) use of insulin | CPT/HCPCS: 99213 ==

== ENCOUNTER 2023-12-04 16:52 | Inpatient (IN) | payer MEDICARE, SELFPAY ==
--- NOTE | 2023-12-04 16:53 | XRR_ITS ---
PROCEDURE INFORMATION: Exam: XR Chest Exam date and time: 12/04/2023 5:10 PM Age: 73 years old Clinical indication: Other: Weakness; Prior surgery; Surgery date: 6+ months; Surgery type: Open heart TECHNIQUE: Imaging protocol: Radiologic exam of the chest. Views: 1 view. COMPARISON: CR XR chest 1V portable [id number] 07/15/2023 12:38 PM FINDINGS: Lungs: Unremarkable. No consolidation. Pleural spaces: Unremarkable. No pleural effusion. No pneumothorax. Heart/Mediastinum: Unremarkable. No cardiomegaly. Bones/joints: Sternotomy wires noted. Visualized osseous structures are intact. XR/XR chest 1V portable [id number] IMPRESSION: No acute findings.
--- NOTE | 2023-12-04 16:54 | ECG_ITS ---
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 Measurements Intervals [place] Rate: 84 P: 0 WI: 0 QRS: 19 QRSD: 102 T: 145 QT: 373 QTc: 442 Interpretive Statements ATRIAL FIBRILLATION ST DEVIATION AND MODERATE T-WAVE ABNORMALITY, CONSIDER LATERAL ISCHEMIA [-0.1+ mV T-WAVE IN I/aVL/V5/V6] Compared to ECG 08/27/2022 16:43:43 Sinus rhythm no longer present First degree AV block no longer present T-wave abnormality still present Possible ischemia still present Electronically Signed On 12-05-2023 7:24:45 IMPLEMENTATION SPECIALIST by Jaime Moore M.D. [email or web address]
[2023-12-04 17:06] LABS: Basophils # 0.1 10^3/uL (0.0-0.1); Basophils % 0.4 %; Eosinophils % 0.2 %; Hematocrit 33.3 % (37-53); Lymphocytes # 0.3 10^3/uL (0.8-4.8); Lymphocytes % 1.9 %; Mean Corpuscular HGB Conc 31.5 g/dL (30-55); Mean Corpuscular Hemoglobin 27.2 pg (27-33); Mean Corpuscular Volume 86.3 fl (82-101); Mean Platelet Volume 9.8 fL (7.4-10.4); Monocytes # 0.9 10^3/uL (0.2-0.9); Monocytes % 6.8 %; Neutrophils # 12.09 10^3/uL (1.8-7.7); Neutrophils % 90.3 %; Nucleated Red Blood Cells % 0 %; Platelet Count 193 10^3/cmm (157-399); Red Blood Count 3.86 10^6/uL (3.85-5.65); Red Cell Distribution Width 19.6 % (12.1-15.1); White Blood Count 13.39 10^3/uL (3.29-11.43)
[2023-12-04 17:07] VITALS: BP 137/61; PULSE 87; RESP 17; TEMP 39.4; O2SAT 92
--- NOTE | 2023-12-04 17:07 | ED_ITS ---
HPI - Extremity Problem 2 General: Chief complaint: Weakness Stated complaint: Gen weakness Time Seen by Provider: 12/04/23 16:57 Source: patient and EMS Mode of arrival: EMS Limitations: no limitations History of Present Illness: This patient was transported to the emergency department EMS. He apparently has just been seen in the emergency department a couple days ago. 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 He currently denies any complaint particularly denies any pain, shortness of breath etc. He states he has eaten some today and has gone to the bathroom normally. Patient has a history of significant peripheral vascular disease and also has had prior toe amputation is has a necrotic fifth toe known on his right foot. Associated symptoms: Reports fever(s); Deny chest pain Review of Systems 2 Const: Reports: fever(s) and malaise ENMT: Denies: throat pain or odynophagia Card: Denies: chest pain or palpitations Resp: Denies: dyspnea, productive cough or non-productive cough GI: Denies: abdominal pain, nausea, vomiting or diarrhea : Denies: flank pain, difficulty urinating, dysuria or urinary frequency Musc: Reports: extremity pain; Denies: neck pain or back pain Skin/Breast: Reports: sores and lesions Neuro: Denies: headache(s) or weakness in extremities PFSH ED 2 PFSH: Medical History Peripheral arterial disease Limb ischemia Dyslipidemia Osteomyelitis of foot Diabetic wet gangrene of the foot Diabetes EZEQUIEL (acute kidney injury) Non-pressure chronic ulcer of other part of left foot with fat layer exposed Cardiomyopathy EZEQUIEL (acute kidney injury) Bradycardia Aortic valve disease 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 mellitus MSSA (methicillin susceptible Staphylococcus aureus) infection Gangrene PVD (peripheral vascular disease) 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 on 07/21/2021 Acute hypokalemia Osteomyelitis of toe of left foot History of nonmelanoma skin cancer Atrial fibrillation Paroxysmal Benign prostatic hyperplasia Chronic anticoagulation Xarelto Hypertensive urgency NSTEMI (non-ST elevated myocardial infarction) Congestive heart failure Anticoagulation adequate with anticoagulant therapy Xarelto Varicose vein of leg Obesity HTN (hypertension) Diabetes TIA (transient ischemic attack) Surgical History S/P cholecystectomy S/P cataract extraction S/P AVR (aortic valve replacement) Bioprosthetic, bovine Family History Father Diabetes Hypertension Grandfather Diabetes PATERNAL Hypertension PATERNAL Social History Smoking and tobacco/nicotine status: former use of tobacco/nicotine Alcohol intake: former Substance/Drug Use: never Marital status: / service: No Current occupational status: retired Current occupation: retired from [employer] Physical Exam 2 Narrative: EXAM NARRATIVE: He readily responds to voice and answers questions in a goal-directed fashion he is aware of himself and surroundings but uncertain of date and time Const: COMMON NORMALS: average body habitus GENERAL APPEARANCE: cooperative and comfortable ORIENTATION/CONSCIOUSNESS: Yes awake and Yes oriented to person HENMT: COMMON NORMALS: normocephalic, Normal nasal mucous membranes and turbinates present and moist oral mucous membranes HEAD & SCALP: n ormocephalic NOSE: Normal nasal mucous membranes and turbinates present Eye: COMMON NORMALS: Equal, round and reactive pupils present, EOMs intact bilaterally and conjunctivae normal CONJUNCTIVA: Yes conjunctivae normal P UPIL: Yes Equal, round and reactive pupils present Neck/C-Spine: COMMON NORMALS: full ROM, no JVD and No carotid bruits Chest: COMMONS NORMALS: normal inspection of the chest Resp: COMMON NORMALS: normal respiratory effort, No retractions, No use of accessory muscles and clear to auscultation bilaterally AUSCULTATION: clear to auscultation bilaterally Cardio: COMMON NORMALS: no JVD, regular rate, regular rhythm and No murmurs present (Cardio) RATE: regular rate RHYTHM: regular rhythm GI: COMMON NORMALS: Normal to inspection, nondistended, normoactive bowel sounds present, Soft to palpation and non-tender PALPATION: Yes Soft to palpation : COMMON NORMALS: Yes no CVA tenderness BLADDER/KIDNEY EXAM: Yes no CVA tenderness Back/Pelvis: COMMON NORMALS: no CVA tenderness, thoracic and lumbar spine normal to inspection and no thoracic nor lumbar tenderness Extremity: NARRATIVE EXTREMITY EXAM: Extremities are noted for dressing on the right forefoot. After removal of dressing is noted to have a black and necrotic fifth toe. He also has a necrotic looking ulcer on the dorsal surface of the first toe. He has some mottling of the skin of the foot and erythema of the skin to mid calf. No ascending lymphangitis or lymphadenopathy is noted. He also has a dressing on his left forefoot. The skin appears normal without any erythema duskiness etc. Neuro: COMMON NORMALS: moves all extremities and no focal motor deficits S ENSORIUM/ORIENTATION: Yes oriented to person CRANIAL NERVES: Yes CN normal except as noted Psych: COMMON NORMALS: mental status grossly normal Skin: GENERAL SKIN EXAM: erythema, eschar (Right fifth toe) and mottling (Right foot) Course 2 Consultations: Consultation #1: Discussed with attending hospitalist who agreed to admission and made some additional treatment recommendations. Time: 17:56 Vital Signs: Vital signs: Vital Signs Temperature 102.9 F H 12/04/23 17:07 Pulse Rate 83 12/04/23 17:45 Respiratory Rate 17 12/04/23 17:07 Blood Pressure 137/61 12/04/23 17:07 Pulse Oximetry 97 12/04/23 17:45 Oxygen Delivery Me thod Room Air 12/04/23 17:45 MDM - Extremity (Nontraumatic) Medical Decision Making Patient with known peripheral vascular disease who has had prior left foot amputation as well as right foot toe amputations with a known history of necrotic fifth toe the right foot presents with malaise and decreased activity and fever todady. Clinical examination reveals him to be alert with a temperature of 102.9. His right lower extremity is remarkable for some mottling with ulceration of the dorsum of the right great toe as well as a necrotic right fifth toe. He has some erythema ascending to the top third of his right calf. Workup will be initiated to include a serum lactate, IV fluids, blood cultures tetanus update ankle-brachial index to determine vascular status of the extremities as well as antibiotic coverage. Patient will be need to be admitted and have additional consultations for consideration of definitive therapy of his toes of his right foot. Medical Records I reviewed the patient's medical records. Known peripheral vascular disease. Lab Data 12/04/23 16:40 12/04/23 16:40 Radiology Impressions Chest X-Ray 12/04/23 16:53 IMPRESSION: No acute findings. Laboratory Results WBC 13.39 10^3/uL (3.29-11.43) H 12/04/23 16:40 RBC 3.86 10^6/uL (3.85-5.65) 12/04/23 16:40 Hgb 10.50 g/dL (11.27-16.99) L 12/04/23 16:40 Hct 33.3 % (37-53) L 12/04/23 16:40 MCV 86.3 fl (82-101) 12/04/23 16:40 MCH 27.2 pg (27-33) 12/04/23 16:40 MCHC 31.5 g/dL (30-55) 12/04/23 16:40 RDW 19.6 % (12.1-15.1) H 12/04/23 16:40 Plt Count 193 10^3/cmm (157-399) 12/04/23 16:40 MPV 9.8 fL (7.4-10.4) 12/04/23 16:40 Neut % (Auto) 90.3 % 12/04/23 16:40 Lymph % (Auto) 1.9 % 12/04/23 16:40 Upson % (Auto) 6.8 % 12/04/23 16:40 Eos % (Auto) 0.2 % 12/04/23 16:40 Baso % (Auto) 0.4 % 12/04/23 16:40 Neut # (Auto) 12.09 10^3/uL (1.8-7.7) H 12/04/23 16:40 Lymph # (Auto) 0.3 10^3/uL (0.8-4.8) L 12/04/23 16:40 Upson # (Auto) 0.9 10^3/uL (0.2-0.9) 12/04/23 16:40 Eos # (Auto) 0.0 10^3/uL (0.0-0.8) 12/04/23 16:40 Baso # (Auto) 0.1 10^3/uL (0.0-0.1) 12/04/23 16:40 Nucleated RBC % (auto) 0 % 12/04/23 16:40 Nucleated RBCs # 0.0 /100WBC 12/04/23 16:40 ESR 31 mm/hr (0-10) H 12/04/23 16:40 PT 15.70 SECONDS (12.1-14.9) H 12/04/23 16:40 INR 1.21 (0.8-1.2) H 12/04/23 16:40 Sodium 136 mmol/L (136-145) 12/04/23 16:40 Potassium 3.5 mmol/L (3.5-5.1) 12/04/23 16:40 Chloride 101 mmol/L (98-107) 12/04/23 16:40 Carbon Dioxide 20 mmol/L (22-29) L 12/04/23 16:40 Anion Gap 18.5 (5-19) 12/04/23 16:40 BUN 40 mg/dL (8-23) H 12/04/23 16:40 Creatinine 1.9 mg/dL (0.7-1.2) H 12/04/23 16:40 GFR Calculation Not Reportable 12/04/23 16:40 Glucose 149 mg/dL (65-115) H 12/04/23 16:40 Calculated Osmolality 295 mOsm/kg (285-295) 12/04/23 16:40 Lactic Acid 3.2 mmol/L (0.5-2.2) H 12/04/23 16:40 Calcium 8.7 mg/dL (8.5-10.5) 12/04/23 16:40 Total Bilirubin 1.0 mg/dL (0.15-1.2) 12/04/23 16:40 AST 23 U/L (0-40) 12/04/23 16:40 ALT 20 U/L (0-41) 12/04/23 16:40 Alkaline Phosphatase 70 U/L (40-130) 12/04/23 16:40 Total Protein 7.3 g/dL (6.6-8.7) 12/04/23 16:40 Albumin 3.9 g/dL (3.5-5.2) 12/04/23 16:40 Globulin 3.4 g/dL (1.3-4.6) 12/04/23 16:40 All radiology interpretation(s) finalized by discharge EKG Data EKG 1: I personally reviewed and interpreted this EKG as follows: Interpretation: Contemporaneous review of EKG reveals a ventricular rate of 84 bpm. Underlying rhythm is atrial fibrillation with a controlled ventricular response. Nonspecific ST-T wave changes noted in V4 and V5. Discharge Plan Discharge Patient Disposition: Admitted As Inpatient Clinical Impression: Cellulitis and abscess of right lower extremity, Peripheral vascular disease of extremity Condition: Stable Prescriptions: No Action duloxetine [Cymbalta] 60 mg capsule,delayed release(DR/EC) 60 mg PO BEDTIME (DME) FreeStyle Marisela 14 Day Sensor Kit See Rx Instructions .ROUTE .MEDSUPPLY Qty: 1 Rx Instructions: As directed cholecalciferol (vitamin D3) 25 mcg (1,000 unit) capsule 25 mcg PO QAM sertraline 50 mg tablet 50 mg PO QAM bumetanide 1 mg tablet 3 mg PO BID metolazone 5 mg tablet 5 mg PO DAILY levothyroxine 125 mcg tablet 125 mcg PO DAILY losartan 50 mg tablet 50 mg PO DAILY Vit B-12 tablet 1,000 mcg PO DAILY levofloxacin 500 mg tablet 500 mg PO DAILY 10 Days Qty: 10 0RF (DME) Diabetic shoes with 3 pair of inserts See Rx Instructions .Route .MEDSUPPLY Qty: 1 0RF Rx Instructions: As directed by HOME multivitamin Tablet 1 tab PO QAM Jardiance 25 mg tablet 25 mg PO QAM hydrocodone-acetaminophen 5-325 mg tablet 1 tab PO Q6H PRN (Reason: pain) Qty: 14 0RF tamsulosin [Flomax] 0.4 mg capsule 0.8 mg PO BEDTIME Qty: 14 0RF insulin degludec [Tresiba FlexTouch U-200] 200 unit/mL (3 mL) insulin pen 30 unit SUBCUT BEDTIME PRN (Reason: blood sugar) Qty: 9 0RF insulin aspart U-100 [Novolog PenFill U-100 Insulin] 100 unit/mL cartridge 2 unit SUBCUT AC Qty: 15 0RF Coreg 3.125 mg tablet 3.125 mg PO BID Rx Instructions: must administer with a meal/food potassium chloride 20 mEq tablet extended release 20 meq PO BID Qty: 20 0RF Iron (ferrous sulfate) 325 mg (65 mg iron) Tablet 325 mg PO DAILY clopidogrel 75 mg Tablet 75 mg PO DAILY Qty: 90 0RF aspirin 81 mg Tablet,Delayed Release (Dr/Ec) 81 mg PO DAILY Qty: 90 2RF Referrals: Rowdy Sheldon DO [Primary Care Provider] - Coding Level of Care Code ED 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
[2023-12-04 17:11] LABS: Erythrocyte Sedimentation Rate 31 mm/hr (0-10)
--- NOTE | 2023-12-04 17:23 | USR_ITS ---
PROCEDURE INFORMATION: Exam: US Duplex Right Lower Extremity Arteries Or Arterial Bypass Grafts Exam date and time: 12/04/2023 5:15 PM Age: 73 years old Clinical indication: Other: Gangrenous right foot; Prior surgery; Surgery date: 6+ months; Surgery type: Multiple toe amputations; Additional info: Pvd right TECHNIQUE: Imaging protocol: Right Real-time duplex scan of the arteries or arterial bypass grafts of the right lower extremity with 2-D beach scale, color Doppler flow and spectral waveform analysis. Images documented and saved. COMPARISON: CT angio abd aorta runof [id number] 10/04/2023 1:16 PM FINDINGS: Right external iliac artery: Right external iliac artery is patent distally. Triphasic waveform. Mildly elevated velocities measuring 219 cm/s. Right common femoral artery: Right common femoral artery is patent. Triphasic waveform. Unremarkable velocity. Scattered echogenic plaque. Deep femoral artery is patent. Triphasic waveform. Unremarkable velocities. Right superficial femoral artery: Right superficial femoral artery is patent proximally. Triphasic waveform. Unremarkable velocity. Scattered plaque. Midportion of the artery shows elevated velocities estimated 291 cm/s. Waveform becomes monophasic. Severe waveform dampening distally with reduced velocities estimated 15 cm/s. Right popliteal artery: Right popliteal artery is patent. Waveforms are diminished with monophasic pattern. Reduced velocities. Right calf/foot arteries: Right posterior tibial artery is patent. Waveform is severely dampened and monophasic. Low velocities. Right peroneal artery shows monophasic waveforms. Severe dampening. Right dorsalis pedis artery show severely dampened monophasic waveforms. Soft tissues: No hematoma or collection. US/[place] [id number] IMPRESSION: Severe right lower extremity peripheral arterial occlusive disease features.
[2023-12-04 17:28] LABS: Alanine Aminotransferase 20 U/L (0-41); Albumin Level 3.9 g/dL (3.5-5.2); Alkaline Phosphatase 70 U/L (40-130); Anion Gap 18.5 (5-19); Aspartate Amino Transferase 23 U/L (0-40); Blood Urea Nitrogen 40 mg/dL (8-23); Calcium 8.7 mg/dL (8.5-10.5); Carbon Dioxide 20 mmol/L (22-29); Chloride 101 mmol/L (98-107); Globulin 3.4 g/dL (1.3-4.6); Glucose 149 mg/dL (65-115); INR 1.21 (0.8-1.2); Osmolality Calculated 295 mOsm/kg (285-295); Potassium 3.5 mmol/L (3.5-5.1); Sodium 136 mmol/L (136-145); Total Protein 7.3 g/dL (6.6-8.7)
[2023-12-04] MEDS: acetaminophen 325 mg Tablet 650 MG PO ×2 (17:41→23:34)
[2023-12-04] MEDS: tetanus-dipt-pertussis 0.5 mL SDV IM (17:42)
[2023-12-04] MEDS: sodium chloride 0.9% 1,000 ML 999 ML IV (17:44)
[2023-12-04 17:45] VITALS: PULSE 83; O2SAT 97
[2023-12-04 17:46] LABS: Lactic Sepsis W/Reflex 3.2 mmol/L (0.5-2.2)
--- NOTE | 2023-12-04 18:11 | XRR_ITS ---
PROCEDURE INFORMATION: Exam: XR Right Foot Exam date and time: 12/04/2023 7:01 PM Age: 73 years old Clinical indication: Condition or disease; Other: Gangrene; Additional info: Osteo TECHNIQUE: Imaging protocol: Radiologic exam of the right foot. Views: 3 or more views. COMPARISON: CT angio abd aorta runof [id number] 10/04/2023 1:16 PM FINDINGS: Bones/joints: Amputation changes bases of the 2nd and 3rd proximal phalanx the 4th digit through the head of the metatarsal. Residual osseous structures are intact no irregular osseous erosions. Soft tissues: No subcutaneous emphysema. XR/XR foot RT min 3V* [id number] IMPRESSION: No acute findings.
--- NOTE | 2023-12-04 18:11 | XRR_ITS ---
PROCEDURE INFORMATION: Exam: XR Right Tibia and Fibula Exam date and time: 12/04/2023 7:01 PM Age: 73 years old Clinical indication: Condition or disease; Other: Gangrene; Additional info: Osteo TECHNIQUE: Imaging protocol: Radiologic exam of the right tibia and fibula. Views: 2 views. COMPARISON: CT angio abd aorta runof [id number] 10/04/2023 1:16 PM FINDINGS: Bones/joints: Normal. Soft tissues: Normal. XR/XR tibia fibula RT 2V [id number] IMPRESSION: No acute findings.
--- NOTE | 2023-12-04 18:31 | PC.NURSE ---
Medication Delay: initial abx delayed d/t waiting on blood cultures to be drawn at this time
--- NOTE | 2023-12-04 18:31 | PC.NURSE ---
Maintenance Fluids Delay: first normal saline order currently infusing at this time, maintenance dose delayed
--- NOTE | 2023-12-04 18:32 | P.HP_ITS ---
Documented by User: Alfred Sullivan MD 12/04/23 18:43 Providers/Chief Complaint 2 Primary Care Provider: Rowdy Sheldon DO Chief Complaint: Gen weakness History of Present Illness Surendra Roland is a 73 year old male with history of peripheral vascular disease, diabetic foot ulcer, previous history of vascular intervention of left leg by Dr. Moore, for right foot ulcer he has been seeing Dr. Duggan, presented today for confusion, labored breathing. Patient is being held by a caregiver who is a friend her name is Ольга. Medical DPOA is Flynn ramos who lives in [place]. Patient is full code. He has wet gangrene of right foot involving lateral toes with signs of sepsis with high lactic acid leukocytosis, endorgan damage of creatinine 1.9,fever 102 Review of Systems 2 Const: Reports: fever(s) Eyes: Denies: change in vision ENMT: Denies: throat pain Card: Denies: chest pain Resp: Reports: dyspnea GI: Denies: abdominal pain : Denies: flank pain Musc: Denies: neck pain Skin/Breast: Reports: rash, erythema and non-healing lesions Neuro: Denies: headache(s) Psych: Denies: anxiety Medications/Allergies Home Medications Medication Instructions Recorded Confirmed Last Taken Type duloxetine 60 mg capsule,delayed 60 mg PO BEDTIME 02/22/20 12/04/23 12/03/23 History release (Cymbalta) empagliflozin 25 mg tablet 25 mg PO QAM 05/06/21 12/04/23 12/04/23 History (Jardiance) multivitamin 1 tab PO QAM 05/06/21 12/05/23 11/05/23 History cholecalciferol (vitamin D3) 25 25 mcg PO QAM 08/01/21 12/05/23 12/03/23 History mcg (1,000 unit) capsule flash glucose sensor (FreeStyle #1 ea 05/01/22 12/04/23 10/11/22 History Marisela 14 Day Sensor kit) sertraline 50 mg tablet 50 mg PO QAM 11/14/22 12/04/23 12/03/23 History Diabetic shoes with 3 pair of #1 ea 11/28/22 12/04/23 Unknown Rx inserts tamsulosin 0.4 mg capsule (Flomax) 0.8 mg (2 x 0.4 mg) PO BEDTIME #14 07/23/23 12/04/23 11/04/23 Rx caps potassium chloride 20 mEq 20 meq PO BID #20 tabs 10/03/23 12/04/23 12/03/23 Rx tablet,extended release Vit B-12 1,000 mcg PO DAILY 10/24/23 12/05/23 11/05/23 History carvedilol 3.125 mg tablet (Coreg) 3.125 mg PO BID 10/24/23 12/04/23 12/04/23 History levothyroxine 125 mcg tablet 125 mcg PO DAILY 10/24/23 12/04/23 12/03/23 History losartan 50 mg tablet 50 mg PO DAILY 10/24/23 12/04/23 12/04/23 History metolazone 5 mg tablet 5 mg PO DAILY 10/24/23 12/04/23 12/03/23 History ferrous sulfate 325 mg (65 mg 325 mg PO DAILY 11/06/23 12/05/23 Unknown History iron) tablet (Iron (ferrous sulfate)) aspirin 81 mg tablet,delayed 81 mg PO DAILY #90 tabs 11/07/23 12/05/23 12/03/23 Rx release clopidogrel 75 mg tablet 75 mg PO DAILY #90 tabs 11/07/23 12/04/23 12/03/23 Rx hydrocodone 5 mg-acetaminophen 325 1 tab PO Q6H PRN pain #14 tabs 12/02/23 12/05/23 Unknown Rx mg tablet bumetanide 1 mg tablet 3 mg PO DAILY 12/04/23 12/04/23 12/03/23 History insulin glargine 100 unit/mL (3 60 unit SUBCUT QPM 12/04/23 12/04/23 12/03/23 History mL) subcutaneous pen (Lantus Solostar U-100 Insulin) Allergies Allergy/AdvReac Type Severity Reaction Status Date / Time No Known Allergies Allergy Verified 12/03/23 09:34 PFSH Acute 2 PFSH: Medical History Peripheral arterial disease Limb ischemia Dyslipidemia Osteomyelitis of foot Diabetic wet gangrene of the foot Diabetes EZEQUIEL (acute kidney injury) Non-pressure chronic ulcer of other part of left foot with fat layer exposed Cardiomyopathy EZEQUIEL (acute kidney injury) Bradycardia Aortic valve disease 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 mellitus MSSA (methicillin susceptible Staphylococcus aureus) infection Gangrene PVD (peripheral vascular disease) 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 on 07/21/2021 Acute hypokalemia Osteomyelitis of toe of left foot History of nonmelanoma skin cancer Atrial fibrillation Paroxysmal Benign prostatic hyperplasia Chronic anticoagulation Xarelto Hypertensive urgency NSTEMI (non-ST elevated myocardial infarction) Congestive heart failure Anticoagulation adequate with anticoagulant therapy Xarelto Varicose vein of leg Obesity HTN (hypertension) Diabetes TIA (transient ischemic attack) Surgical History S/P cholecystectomy S/P cataract extraction S/P AVR (aortic valve replacement) Bioprosthetic, bovine Family History Father Diabetes Hypertension Grandfather Diabetes PATERNAL Hypertension PATERNAL Social History Smoking and tobacco/nicotine status: former use of tobacco/nicotine Alcohol intake: former Substance/Drug Use: never Marital status: / service: No Current occupational status: retired Current occupation: retired from [employer] Vitals/I&O/Wt Last Vital Signs Temp 102.9 F H 12/04/23 17:07 Pulse 83 12/04/23 17:45 Resp 17 12/04/23 17:07 BP 137/61 12/04/23 17:07 Pulse Ox 97 12/04/23 17:45 O2 Del Method Room Air 12/04/23 17:45 Physical Exam 2 Narrative: Patient is very hard of hearing Mild signs of fluid overload Currently on room air Currently on room air Febrile No sign of confusion Blood sugar 170 Pleasant and cooperative Right foot covered with dressing with a healing ulcer Pulses palpable left foot Right foot pulses are nonpalpable, LILLIAN less than .5 right foot Data 12/05/23 05:25 12/05/23 05:25 A&P Assessment and plan (1) Peripheral arterial disease: (2) Peripheral vascular disease of extremity: (3) CKD (chronic kidney disease): (4) Osteomyelitis of right foot: Qualifiers: Osteomyelitis type: chronic, with draining sinus Qualified Code(s): M 86.471 - Chronic osteomyelitis with draining sinus, right ankle and foot (5) Cellulitis and abscess of right lower extremity: (6) Necrosis of toe: (7) Amputation of toe: Qualifiers: Laterality: unspecified laterality Qualified Code(s): S98.139A - Complete traumatic amputation of one unspecified lesser toe, initial encounter (8) Gangrene of toe of right foot: (9) Sepsis: (10) Limb ischemia: Plan Sepsis Criteria met with endorgan damage, fever, leukocytosis high lactic acid Wet gangrene right foot Limb ischemia Not a candidate for angiogram creatinine is 1.9 Chronic kidney disease Blood sugar 170 Will keep him n.p.o. after midnight Patient likely will need amputation in the morning Add antibiotics Septic bolus can be added 30 mill per kilo May need prison placement Goals of care discussed with the patient he is full code Medical DPOA is Flynn who is his nephew who lives in [place] Attestations 2 Medical Necessity Statement*: More than 2 midnights anticipated Coding Level of Care Code 15594 Diagnoses Peripheral arterial disease I73.9 Peripheral vascular disease of extremity I73.9 CKD (chronic kidney disease) N18.9 Chronic osteomyelitis of right foot with draining sinus M86.471 Osteomyelitis type: chronic, with draining sinus Cellulitis and abscess of right lower extremity L03.115; L02.415 Necrosis of toe I96 Amputated toe, unspecified laterality S98.139A Laterality: unspecified laterality Gangrene of toe of right foot I96 Sepsis A41.9 Limb ischemia I99.8 Documented by User: Michelle Castelan MD 12/05/23 12:00 Providers/Chief Complaint 2 Chief Complaint: Gen weakness History of Present Illness Surendra Roland is a 73 year old male with history of peripheral vascular disease, diabetic foot ulcer, previous history of vascular intervention of left leg by Dr. Moore, for right foot ulcer he has been seeing Dr. Duggan, presented today for confusion, labored breathing. Patient is being held by a caregiver who is a friend her name is Ольга. Medical DPOA is lFynn nephew who lives in [place]. Patient is full code. He has wet gangrene of right foot involving lateral toes with signs of sepsis with high lactic acid leukocytosis, endorgan damage of creatinine 1.9,fever 102. Medications/Allergies Home Medications Medication Instructions Recorded Confirmed Last Taken Type duloxetine 60 mg capsule,delayed 60 mg PO BEDTIME 02/22/20 12/04/23 12/03/23 History release (Cymbalta) empagliflozin 25 mg tablet 25 mg PO QAM 05/06/21 12/04/23 12/04/23 History (Jardiance) multivitamin 1 tab PO QAM 05/06/21 12/05/23 11/05/23 History cholecalciferol (vitamin D3) 25 25 mcg PO QAM 08/01/21 12/05/23 12/03/23 History mcg (1,000 unit) capsule flash glucose sensor (FreeStyle #1 ea 05/01/22 12/04/23 10/11/22 History Marisela 14 Day Sensor kit) sertraline 50 mg tablet 50 mg PO QAM 11/14/22 12/04/23 12/03/23 History Diabetic shoes with 3 pair of #1 ea 11/28/22 12/04/23 Unknown Rx inserts tamsulosin 0.4 mg capsule (Flomax) 0.8 mg (2 x 0.4 mg) PO BEDTIME #14 07/23/23 12/04/23 11/04/23 Rx caps potassium chloride 20 mEq 20 meq PO BID #20 tabs 10/03/23 12/04/23 12/03/23 Rx tablet,extended release Vit B-12 1,000 mcg PO DAILY 10/24/23 12/05/23 11/05/23 History carvedilol 3.125 mg tablet (Coreg) 3.125 mg PO BID 10/24/23 12/04/23 12/04/23 History levothyroxine 125 mcg tablet 125 mcg PO DAILY 10/24/23 12/04/23 12/03/23 History losartan 50 mg tablet 50 mg PO DAILY 10/24/23 12/04/23 12/04/23 History metolazone 5 mg tablet 5 mg PO DAILY 10/24/23 12/04/23 12/03/23 History ferrous sulfate 325 mg (65 mg 325 mg PO DAILY 11/06/23 12/05/23 Unknown History iron) tablet (Iron (ferrous sulfate)) aspirin 81 mg tablet,delayed 81 mg PO DAILY #90 tabs 11/07/23 12/05/23 12/03/23 Rx release clopidogrel 75 mg tablet 75 mg PO DAILY #90 tabs 11/07/23 12/04/23 12/03/23 Rx hydrocodone 5 mg-acetaminophen 325 1 tab PO Q6H PRN pain #14 tabs 12/02/23 12/05/23 Unknown Rx mg tablet bumetanide 1 mg tablet 3 mg PO DAILY 12/04/23 12/04/23 12/03/23 History insulin glargine 100 unit/mL (3 60 unit SUBCUT QPM 12/04/23 12/04/23 12/03/23 History mL) subcutaneous pen (Lantus Solostar U-100 Insulin) Allergies Allergy/AdvReac Type Severity Reaction Status Date / Time No Known Allergies Allergy Verified 12/03/23 09:34 PFSH Acute 2 PFSH: Medical History Peripheral arterial disease Limb ischemia Dyslipidemia Osteomyelitis of foot Diabetic wet gangrene of the foot Diabetes EZEQUIEL (acute kidney injury) Non-pressure chronic ulcer of other part of left foot with fat layer exposed Cardiomyopathy EZEQUIEL (acute kidney injury) Bradycardia Aortic valve disease 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 mellitus MSSA (methicillin susceptible Staphylococcus aureus) infection Gangrene PVD (peripheral vascular disease) 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 on 07/21/2021 Acute hypokalemia Osteomyelitis of toe of left foot History of nonmelanoma skin cancer Atrial fibrillation Paroxysmal Benign prostatic hyperplasia Chronic anticoagulation Xarelto Hypertensive urgency NSTEMI (non-ST elevated myocardial infarction) Congestive heart failure Anticoagulation adequate with anticoagulant therapy Xarelto Varicose vein of leg Obesity HTN (hypertension) Diabetes TIA (transient ischemic attack) Surgical History S/P cholecystectomy S/P cataract extraction S/P AVR (aortic valve replacement) Bioprosthetic, bovine Family History Father Diabetes Hypertension Grandfather Diabetes PATERNAL Hypertension PATERNAL Social History Smoking and tobacco/nicotine status: former use of tobacco/nicotine Alcohol intake: former Substance/Drug Use: never Marital status: / service: No Current occupational status: retired Current occupation: retired from [employer] 12/05/23 05:25 12/05/23 05:25 A&P Assessment and plan (1) Peripheral arterial disease: (2) Peripheral vascular disease of extremity: (3) CKD (chronic kidney disease): (4) Osteomyelitis of right foot: Qualifiers: Osteomyelitis type: chronic, with draining sinus Qualified Code(s): M 86.471 - Chronic osteomyelitis with draining sinus, right ankle and foot (5) Cellulitis and abscess of right lower extremity: (6) Necrosis of toe: (7) Amputation of toe: Qualifiers: Laterality: unspecified laterality Qualified Code(s): S98.139A - Complete traumatic amputation of one unspecified lesser toe, initial encounter (8) Gangrene of toe of right foot: (9) Sepsis: (10) Limb ischemia: Plan #Sepsis secondary to most likely osteomyelitis, evidence of endorgan damage, lactic acidosis, fever, leukocytosis criteria met on admission. #Dry gangrene #Limb ischemia? #History of osteomyelitis and other toes requiring amputation #History of peripheral arterial disease, intervention performed in the past #Chronic wounds #Chronic kidney disease #Diabetes mellitus type 2, insulin-dependent - Criteria met with endorgan damage, fever, leukocytosis high lactic acid - Check MRI right foot with and without contrast - Not a candidate for angiogram creatinine is 1.9 however patient willing to have it done even if he ends up on dialysis. ? Will need tight blood glucose control ? Placed on vancomycin and Zosyn. Previous cultures have been positive for Staph aureus however with repeated infections he may have developed MRSA. ? Blood cultures obtained and antibiotic started in the ER. ? Will keep n.p.o. at midnight for possible intervention/amputation of further procedures. ?Septic bolus given in the ER. ? Will have to watch for fluid overload since patient does have Bumex as a home medication - May need prison placement -Will consult cardiology for peripheral angiogram. Will recheck creatinine in the morning. - Consult podiatry. Goals of care discussed with the patient he is full code Medical DPOA is Flynn who is his nephew who lives in [place] Diagnoses Peripheral arterial disease I73.9 Peripheral vascular disease of extremity I73.9 CKD (chronic kidney disease) N18.9 Chronic osteomyelitis of right foot with draining sinus M86.471 Osteomyelitis type: chronic, with draining sinus Cellulitis and abscess of right lower extremity L03.115; L02.415 Necrosis of toe I96 Amputated toe, unspecified laterality S98.139A Laterality: unspecified laterality Gangrene of toe of right foot I96 Sepsis A41.9 Limb ischemia I99.8
[2023-12-04] MEDS: piperacillin-tazobactam 3.375 GM in sodium chloride 0.9% (plus) 50 ML IV (18:49)
[2023-12-04] MEDS: heparin 5,000 unit/mL INJ 1 mL 5000 UNIT SUBCUT (18:50)
--- NOTE | 2023-12-04 18:55 | PC.NURSE ---
glucose via fingerstick: 167 @[id number]
--- NOTE | 2023-12-04 19:03 | P.CONIM_ITS ---
Providers/Reason For Consult 2 Consulting Physician/Specialty*: Garrick Duggan D.P.M./podiatry Reason for Consult*: Ischemic right foot gangrene right fifth toe Attending Physician: Michelle Castelan MD Primary Care Provider: Rowdy Sheldon DO History of Present Illness History of Present Illness Surendra Roland is a 73 year old male being admitted to the hospital service for gangrene right foot, underlying peripheral arterial disease which is extensive. His caregiver observed the patient to have a decrease in his activities today with subjective fever. He was brought to the ED via EMS. Patient has extensive past medical history including limb ischemia, peripheral arterial disease, history of multiple revascularizations of the lower extremity, had balloon angioplasty of the right lower extremity July 21, 2021, history of revascularization of the left lower extremity October 2023. History of diabetes with peripheral polyneuropathy, EZEQUIEL, cardiomyopathy, aortic valve disease, patient is on chronic anticoagulation. Review of Systems 2 General: Reports: 10 or more systems reviewed and unremarkable except in HPI and below Const: Denies: fever(s) or chills Eyes: Denies: change in vision Card: Denies: chest pain or palpitations Resp: Denies: dyspnea or productive cough GI: Denies: abdominal pain, nausea or vomiting : Denies: flank pain Musc: Reports: extremity swelling, joint stiffness and deformity Skin/Breast: Reports: erythema, sores, changes in skin color, dry skin, nail changes and change in hair Neuro: Reports: numbness in extremities, sensory changes and difficulty walking Psych: Denies: suicidal ideation Endo: Denies: change in body appearance Lit/Lymph: Denies: tender lymph nodes Medications/Allergies Home Medications Medication Instructions Recorded Confirmed Last Taken Type duloxetine 60 mg capsule,delayed 60 mg PO BEDTIME 02/22/20 12/03/23 11/05/23 History release (Cymbalta) empagliflozin 25 mg tablet 25 mg PO QAM 05/06/21 12/03/23 11/05/23 History (Jardiance) multivitamin 1 tab PO QAM 05/06/21 12/03/23 11/05/23 History cholecalciferol (vitamin D3) 25 25 mcg PO QAM 08/01/21 12/03/23 11/05/23 History mcg (1,000 unit) capsule flash glucose sensor (FreeStyle #1 ea 05/01/22 12/03/23 10/11/22 History Marisela 14 Day Sensor kit) sertraline 50 mg tablet 50 mg PO QAM 11/14/22 12/03/23 11/05/23 History Diabetic shoes with 3 pair of #1 ea 11/28/22 12/03/23 Unknown Rx inserts insulin aspart U-100 100 unit/mL 2 unit (0.02 mL) SUBCUT AC #15 mL 07/23/23 12/03/23 11/05/23 Rx subcutaneous cartridge (Novolog PenFill U-100 Insulin aspart) insulin degludec 200 unit/mL (3 30 unit (0.15 mL) SUBCUT BEDTIME 07/23/23 12/03/23 11/05/23 Rx mL) subcutaneous pen (Tresiba PRN blood sugar #9 mL FlexTouch U-200 insulin) tamsulosin 0.4 mg capsule (Flomax) 0.8 mg (2 x 0.4 mg) PO BEDTIME #14 07/23/23 12/03/23 11/04/23 Rx caps potassium chloride 20 mEq 20 meq PO BID #20 tabs 10/03/23 12/03/23 11/05/23 Rx tablet,extended release Vit B-12 1,000 mcg PO DAILY 10/24/23 12/03/23 11/05/23 History bumetanide 1 mg tablet 3 mg PO BID 10/24/23 12/03/23 11/05/23 History carvedilol 3.125 mg tablet (Coreg) 3.125 mg PO BID 10/24/23 12/03/23 11/05/23 History levothyroxine 125 mcg tablet 125 mcg PO DAILY 10/24/23 12/03/23 11/05/23 History losartan 50 mg tablet 50 mg PO DAILY 10/24/23 12/03/23 11/05/23 History metolazone 5 mg tablet 5 mg PO DAILY 10/24/23 12/03/23 11/05/23 History ferrous sulfate 325 mg (65 mg 325 mg PO DAILY 11/06/23 12/03/23 Unknown History iron) tablet (Iron (ferrous sulfate)) aspirin 81 mg tablet,delayed 81 mg PO DAILY #90 tabs 11/07/23 12/03/23 Unknown Rx release clopidogrel 75 mg tablet 75 mg PO DAILY #90 tabs 11/07/23 12/03/23 Unknown Rx hydrocodone 5 mg-acetaminophen 325 1 tab PO Q6H PRN pain #14 tabs 12/02/23 12/03/23 Unknown Rx mg tablet levofloxacin 500 mg tablet 500 mg PO DAILY 10 days #10 tabs 12/03/23 12/03/23 Unknown Rx Allergies Allergy/AdvReac Type Severity Reaction Status Date / Time No Known Allergies Allergy Verified 12/03/23 09:34 Current Medications Generic Name Dose Route Start Last Admin Trade Name Freq PRN Reason Stop Dose Admin Heparin Sodium (Porcine) 5,000 unit 12/04/23 18:00 12/04/23 18:50 Heparin 5,000 Unit/Ml Inj 1 Ml SUBCUT 5,000 unit Q12H JYOTI Administration PFSH Acute 2 PFSH: Medical History Peripheral arterial disease Limb ischemia Dyslipidemia Osteomyelitis of foot Diabetic wet gangrene of the foot Diabetes EZEQUIEL (acute kidney injury) Non-pressure chronic ulcer of other part of left foot with fat layer exposed Cardiomyopathy EZEQUIEL (acute kidney injury) Bradycardia Aortic valve disease 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 mellitus MSSA (methicillin susceptible Staphylococcus aureus) infection Gangrene PVD (peripheral vascular disease) 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 on 07/21/2021 Acute hypokalemia Osteomyelitis of toe of left foot History of nonmelanoma skin cancer Atrial fibrillation Paroxysmal Benign prostatic hyperplasia Chronic anticoagulation Xarelto Hypertensive urgency NSTEMI (non-ST elevated myocardial infarction) Congestive heart failure Anticoagulation adequate with anticoagulant therapy Xarelto Varicose vein of leg Obesity HTN (hypertension) Diabetes TIA (transient ischemic attack) Surgical History S/P cholecystectomy S/P cataract extraction S/P AVR (aortic valve replacement) Bioprosthetic, bovine Family History Father Diabetes Hypertension Grandfather Diabetes PATERNAL Hypertension PATERNAL Social History Smoking and tobacco/nicotine status: former use of tobacco/nicotine Alcohol intake: former Substance/Drug Use: never Marital status: / service: No Current occupational status: retired Current occupation: retired from [employer] Vitals/I&O/Wt Last Vital Signs Temp 102.9 F H 12/04/23 17:07 Pulse 83 12/04/23 17:45 Resp 17 12/04/23 17:07 BP 137/61 12/04/23 17:07 Pulse Ox 97 12/04/23 17:45 O2 Del Method Room Air 12/04/23 17:45 Physical Exam 2 Narrative: GENERAL: Patient is alert and oriented ?3 and in no acute distress. The following is a focused bilateral lower extremity exam. VASCULAR: Dorsalis pedis faintly palpable bilaterally. Posterior tibial arteries faintly palpable. Diminished pedal hair growth bilaterally. NEUROLOGICAL: Protective sensation intact [] sites, tested with [place] monofilament to bilateral feet. [] DERMATOLOGICAL: Ischemic appearing right foot with rubor, dusky beach changes to the great toe and dry stable eschar to the right fifth toe without drainage, no crepitus with soft tissue palpation. Grade 2 wound to the dorsal medial aspect of the right great toe. Wound at the partial ray amputation left foot is grade 2 exposed to fat layer without purulence, erythema or proximal lymphangitic streaking. MUSCULOSKELETAL: History of right fourth toe amputation. Contracted digits 2, 3, 5 with history of osteotomy of the second, third and fourth distal metatarsals. History of partial fourth and fifth ray amputation left foot secondary to gangrene. Data 12/04/23 16:40 12/04/23 16:40 Micro: Microbiology 12/04/23 18:15 Blood Culture - Preliminary Blood SPECIMEN COLLECTED 12/04/23 18:12 Blood Culture - Preliminary Blood SPECIMEN COLLECTED A&P Assessment and plan (1) Limb ischemia: (2) Peripheral arterial disease: (3) Gangrene of toe of right foot: Plan 73-year-old diabetic male presents with dry gangrene right foot fifth toe with underlying limb ischemia has rubor to the right foot and dusky beach ischemic appearance to the right forefoot. WBC 13.39 Oral Tmax 102.9 Fahrenheit ESR 31 CRP 31.5 mg/L X-ray right foot per radiology read shows no acute findings. Per my interpretation there is no soft tissue emphysema, no foreign body and no bony destruction to the right fifth toe to indicate osteomyelitis or gas gangrene. Patient examined evaluated, findings and treatment options were discussed with patient at length. Patient has peripheral arterial disease complicated by dry gangrene of the right foot. He has a high risk of progression of an infection. Patient understands the need for some level of amputation and at this point it is unclear if this will be at the toes, transmetatarsal amputation or below-knee amputation. Given the severity of Mr. Roland condition, a vascular consultation is imperative to assess the feasibility of vascular intervention to potentially increase perfusion to the affected limb. The goal is to explore all possible avenues to salvage the limb, improve Luan quality of life, and prevent further complications. Furthermore, should vascular intervention not be viable, vascular expertise in determining the most appropriate level of amputation would be beneficial. Dressing Betadine wet-to-dry right foot with nonocclusive dressing Podiatry will follow. Coding Level of Care Code Acute Code for Chg Fwd Diagnoses Limb ischemia I99.8 Peripheral arterial disease I73.9 Gangrene of toe of right foot I96
[2023-12-04 19:09] LABS: Procalcitonin 0.84 ng/mL (0-0.5)
[2023-12-04 19:12] LABS: Glucose Point of Care 167 mg/dL (70-110)
[2023-12-04 19:12] LABS: Reflex Lactate Order REFLEX LACTIC ORDERD
[2023-12-04] MEDS: sodium chloride 0.9% 1,000 ML 75 ML IV (19:17)
[2023-12-04] MEDS: insulin lispro 100 unit/1 mL SUBCUT ×2 (19:19→23:08)
[2023-12-04 19:20] LABS: C Reactive Protein 31.5 mg/L (0.0-4.9)
[2023-12-04] MEDS: vancomycin 1,500 MG/300 ML PIGGYBACK 200 MG IV (19:30)
[2023-12-04] MEDS: lactated ringers 1,000 ML 999 ML IV ×2 (19:30→21:45)
[2023-12-04] MEDS: ondansetron 2 mg/ML SDV 2 mL 4 MG IVP (19:41)
[2023-12-04 19:44] LABS: Estmated Average Glucose 229; Hemoglobin A1C 9.6 % (4.0-6.0)
[2023-12-04 19:46] VITALS: BP 107/48; PULSE 75; RESP 20; O2SAT 96
[2023-12-04 20:36] VITALS: BMI 26.9
[2023-12-04 20:38] LABS: Glucose Point of Care 176 mg/dL (70-110)
[2023-12-04 20:40] LABS: Lactic Acid level (Lactate) 2.4 mmol/L (0.5-2.2)
[2023-12-04 20:43] VITALS: BP 102/52; PULSE 72; RESP 18; TEMP 36.4; O2SAT 96
[2023-12-04 23:58] VITALS: BP 112/47; PULSE 71; RESP 19; TEMP 36.4
[2023-12-05] VITALS (87 sets, daily range): BP systolic 84–143; BP diastolic 32–72; PULSE 56–82; RESP 0–29; TEMP 36.4–37.7; O2SAT 80–100
[2023-12-05 00:28] LABS: Add Urine Microscopic? YES; Bilirubin Urine Neg (Negative); Blood Urine 3+ (Negative); Glucose Urine UA 1+ (Normal); Ketones Urine Negative (Negative); Leukocyte Esterase Urine Negative (Negative); Nitrate Urine Negative (Negative); Protein Urine 1+ (Negative); RBC Urine 0-4 /hpf (0-2); Specific Gravity, Urine 1.015 (1.005-1.030); Squamous Epithelial Cell Urine 0-4 /hpf (0-5); Urine Appearance Clear (CLEAR); Urine Color Yellow (Yellow); Urobilinogen Urine Neg (Negative); WBC Urine 0-4 /hpf (0-5); pH Urine 5 (5-7)
[2023-12-05 00:29] LABS: Add Urine Culture? No; Bacteria Urine 1+ /hpf
[2023-12-05] MEDS: piperacillin-tazobactam 3.375 GM in sodium chloride 0.9% (plus) 50 ML IV ×3 (00:59→18:46)
[2023-12-05] MEDS: HYDROcodone-acetaminophen 5-325 mg Tablet 1 TAB PO ×3 (03:22→20:15)
[2023-12-05 05:52] LABS: Basophils % 0.4 %; Eosinophils # 0.1 10^3/uL (0.0-0.8); Eosinophils % 0.9 %; Hematocrit 29.9 % (37-53); Lymphocytes # 0.6 10^3/uL (0.8-4.8); Lymphocytes % 5.5 %; Mean Corpuscular HGB Conc 31.1 g/dL (30-55); Mean Corpuscular Hemoglobin 27.4 pg (27-33); Mean Corpuscular Volume 87.9 fl (82-101); Mean Platelet Volume 9.8 fL (7.4-10.4); Monocytes # 0.8 10^3/uL (0.2-0.9); Monocytes % 7.5 %; Neutrophils # 8.58 10^3/uL (1.8-7.7); Neutrophils % 85.3 %; Nucleated Red Blood Cells % 0 %; Platelet Count 156 10^3/cmm (157-399); Red Cell Distribution Width 19.6 % (12.1-15.1); White Blood Count 10.05 10^3/uL (3.29-11.43)
[2023-12-05 06:19] LABS: Alanine Aminotransferase 38 U/L (0-41); Albumin Level 3.1 g/dL (3.5-5.2); Alkaline Phosphatase 65 U/L (40-130); Anion Gap 19.1 (5-19); Aspartate Amino Transferase 114 U/L (0-40); Blood Urea Nitrogen 39 mg/dL (8-23); Calcium 8.2 mg/dL (8.5-10.5); Carbon Dioxide 19 mmol/L (22-29); Chloride 101 mmol/L (98-107); Creatinine Clr Calc Pharmacy 39.3994; Globulin 3.1 g/dL (1.3-4.6); Glucose 105 mg/dL (65-115); Magnesium 2.2 mg/dL (1.7-2.3); Osmolality Calculated 292 mOsm/kg (285-295); Potassium 3.1 mmol/L (3.5-5.1); Sodium 136 mmol/L (136-145); Total Bilirubin 0.9 mg/dL (0.15-1.2); Total Protein 6.2 g/dL (6.6-8.7)
[2023-12-05 06:37] LABS: Glucose Point of Care 99 mg/dL (70-110)
--- NOTE | 2023-12-05 06:51 | XACV_ITS ---
Exam Room: [facility] Ht: 178 cm Wt: 84 kg BSA: 2.05 m2 Gender: Male : 1950 Any Known Allergies: No known allergies Exam Priority: Routine Procedure(s): Procedure Description: Diagnostic procedure Procedure Description: Peripheral Cath Diagnostic Procedure Procedure Description: Lower extremities' angiography Procedure Description: Peripheral vascular Intervention Procedure Description: PV Balloon Procedure Description: Miscellaneous Procedure Description: ACT Lower Extremity Diagnostic Findings INDICATION: Critical limb ischemia. Right foot gangrene. Right lower extremity findings: Right common iliac artery is patent. Right external iliac artery is patent.Right internal iliac artery is patent. Right common femoral artery is patent. Right profunda artery is patent. Right SFA is totally occluded ostially. Reconstitutes via collaterals in mid to distal segment. Right poplitealartery is patent. Below the knee has patent peroneal artery. Posterior tibial artery reconstitutes via collaterals. Anterior tibial artery is occluded.. Right Superficial Femoral Artery: Severe 100% stenosis. Lower Extremity Interventional Findings Right Superficial Femoral Artery: 100% stenosis treated with AB [place]mont 35 ELECTRIC INSTALLER Catheter [id number]. PROCEDURE DETAIL: After obtaining access in left common femoral artery, we used Glidewire and UF catheter to go up and over to contralateral lower extremity and cross the occluded SFA with Glidewire. We then switched short 6 [place] Citizen sheath with 6 [place] Citizen long sheath which was placed up and over from the left common femoral artery access into right external iliac artery. We then proceeded with balloon angioplasty of SFA with 6.0 x 250 mm. This time we had final angiogram performed that showed excellent brisk flow throughout the right lower extremity with single-vessel runoff with a patent peroneal artery. Long sheath was switched to short sheath. Patient left the Manager Mechanical in stable condition.. Conclusions Total occlusion of right SFA s/p successful revascularization with balloon angioplasty.. Right Superficial Femoral Artery was treated with Balloon. SFA was treated with a Balloon. Recommendations Patient will need amputation of right foot. Post procedure start dual antiplatelet therapy. Continue aspirin for now. Pressures Phase:Rest AO : 122 / 37 ( 66 ) @ 9:39:00 AM 100 / 33 ( 57 ) @ 9:41:00 AM 104 / 42 ( 66 ) @ 9:44:00 AM Hemodynamic Data Phase:Rest AO : 122.0 / 37.0 ( 66.0 ) @ 9:39:00 AM 100.0 / 33.0 ( 57.0 ) @ 9:41:00 AM 104.0 / 42.0 ( 66.0 ) @ 9:44:00 AM Clinical Evaluation EBL: 5mL-10mL Procedural Details Procedure Consent Obtained. Pre-Procedure Time Out. Identified patient by full name and date of as verbalized by the patient/guarantor. Does the consent match the physician's order: Yes. Accurate & Complete Informed Consent: Yes. Inpatient/Outpatient History & Physical on Chart: Yes. If H&P is completed, is and addenduem needed: No; If yes, is the addendum complete: N/A. Visualize and Verify Site with Patient/Guarantor: N/A. Relevant Radiology Images available: Yes. The risks, benefits, and alternatives of sedation and/or procedure were discussed by physician. The patient agrees to continue. Procedure started. PERRLA. Strong, equal hand tetryl wringer operator bilaterally. Lungs clear x 5 lobes. IV Site on Arrival: 20 gauge in the left anticubital. IV Fluids: 0.9% NaCl at KVO. 900 mL infused prior to hot plate plywood press laborer. Pre Procedural Pulses: bilateral dorsalis pedis was Doppled. Pre Procedural Pulses: bilateral posterior tibial was Doppled. Oxygen started at 2liters/min via nasal canula. bilateral groins was prepped with chloroprep then draped in the usual sterile fashion. Physician notified. Baseline sample Acquired. HR: 67 BPM. Physician arrived. Patients oxygen turned up to 3 liters. Physician scrubbed in. Immediate Pre-Procedure Time Out. Correct Patient: Yes; Correct Procedure: Yes; Correct Site: Yes; Correct Patient Position: Yes; Correct Supplies: Yes; Dried Flammable Prep: Yes; Blood Products Available: N/A;. Lidocaine 1% infiltrated to the left groin. Arterial access obtained with micropuncture set. A 5Fr UF catheter in over the glidewire. Catheter out over the glidewire. The short 6Fr sheath exchanged for a 45cm Flexor sheath. Sheath injected in Right iliac and runoff performed. Seeker catheter inserted OTW. Glidewire removed. Contrast injected through the seeker catheter and DSA performed of the right lower leg. Contrast injected through the seeker catheter and DSA performed of the right foot. Glidewire inserted through the seeker catheter. Seeker catheter out OTW. Inflation number : 1 A AB Coalmont 35 ELECTRIC INSTALLER Catheter [id number] was prepped and advanced across the Superficial Femoral, Right , then inflated to 7 SHON for 1:33 seconds. Inflation number: 2 The AB Coalmont 35 ELECTRIC INSTALLER Catheter [id number] was reinflated across the Superficial Femoral, Right, to 6 SHON for 1:31 seconds. Balloon out over wire. Results checked. The long sheath exchanged for a short sheath. A Left femoral angiogram was performed to determine safe placement of closure device. A Suture was successful obtaining hemostatsis at the Left Femoral artery insertion site. Arterial sheath flushed and connected to tranducer and pressure bag with heparinized saline. Post Procedure: Pulses reassessed and unchanged. PERRLA. Strong, equal hand tetryl wringer operator bilaterally. No VTE prophylaxis required. Vital chart was stopped. ACT drawn. Results 329 seconds. Therapeutic limits - pre-heparin administration 90-150 seconds and monitoring heparin during a vascular procedure >250 seconds. Medication's Wasted: Heparin = 3000 units. Medication's Wasted: Other = Fentanyl 50mcg. Total IV fluids: 50 mL. Post-op diagnosis: PAD. Complications: None. Estimated blood loss: 5mL-10mL. Responsiveness - Normal response to verbal stimuli; alert and oriented, PERRLA. Airway - Unaffected, no intervention required; spontaneous ventilation. Circulation: W/N/L, pulses unchanged. Nausea/Vomiting: No. Procedure completed. Patient transferred by bed to CPRU. Access Site Site: Left Femoral artery Sheath Size: 6 Fr Hemostasis Method: Suture Hemostasis Success: Successful Procedure Medications Start: 9:27 AM Stop: 9:27 AM Medication: Versed Amount: 1 mg Route: I.V. Start: 9:27 AM Stop: 9:27 AM Medication: Fentanyl Amount: 25 mcg Route: I.V. Start: 9:44 AM Stop: 9:44 AM Medication: Fentanyl Amount: 25 mcg Route: I.V. Start: 9:46 AM Stop: 9:46 AM Medication: Heparin Amount: 6000 units Route: I.V. Start: 9:51 AM Stop: 9:51 AM Medication: Versed Amount: 1 mg Route: I.V. Start: 9:58 AM Stop: 9:58 AM Medication: Fentanyl Amount: 25 mcg Route: I.V. I, the attending physician, have reviewed and verified all procedure medications. Yes, all medications given per verbal order History/Risk Factors Hypertension: No Dyslipidemia: Yes Peripheral Arterial Disease (PAD): Yes Myocardial Infarction (AK): Yes Obesity: No Renal Disease: No Tobacco Use: Former Prior Interventions PCI: No CABG: No Valve Surgery: No Report Signatures Finalized by Jaime Moore MD on 12/07/2023 01:11 PM
--- NOTE | 2023-12-05 07:27 | P.CONIM_ITS ---
Providers/Reason For Consult 2 Consulting Physician/Specialty*: Jaime Moore MD/ Cardiology Reason for Consult*: Gangrene of right foot/ PAD/ Critical limb ischemia Requesting Physician: Dr Sullivan Attending Physician: Michelle Castelan MD Primary Care Provider: Rowdy Sheldon DO History of Present Illness History of Present Illness Surendra Roland is a 73 year old male with past medical history of diabetes, PAD status post recent revascularization of left lower extremity who presented to hospital with sepsis and gangrene of right foot. As has significant PAD, interventional cardiology consulted for revascularization attempt for better healing of amputation and to determine level of amputation Review of Systems 2 Const: Reports: fever(s) Eyes: Denies: change in vision ENMT: Denies: throat pain Card: Denies: chest pain Resp: Reports: dyspnea GI: Denies: abdominal pain : Denies: flank pain Musc: Denies: neck pain Skin/Breast: Reports: rash, erythema and non-healing lesions Neuro: Denies: headache(s) Psych: Denies: anxiety Medications/Allergies Home Medications Medication Instructions Recorded Confirmed Last Taken Type duloxetine 60 mg capsule,delayed 60 mg PO BEDTIME 02/22/20 12/04/23 12/03/23 History release (Cymbalta) empagliflozin 25 mg tablet 25 mg PO QAM 05/06/21 12/04/23 12/04/23 History (Jardiance) multivitamin 1 tab PO QAM 05/06/21 12/05/23 11/05/23 History cholecalciferol (vitamin D3) 25 25 mcg PO QAM 08/01/21 12/05/23 12/03/23 History mcg (1,000 unit) capsule flash glucose sensor (FreeStyle #1 ea 05/01/22 12/04/23 10/11/22 History Marisela 14 Day Sensor kit) sertraline 50 mg tablet 50 mg PO QAM 11/14/22 12/04/23 12/03/23 History Diabetic shoes with 3 pair of #1 ea 11/28/22 12/04/23 Unknown Rx inserts tamsulosin 0.4 mg capsule (Flomax) 0.8 mg (2 x 0.4 mg) PO BEDTIME #14 07/23/23 12/04/23 11/04/23 Rx caps potassium chloride 20 mEq 20 meq PO BID #20 tabs 10/03/23 12/04/23 12/03/23 Rx tablet,extended release Vit B-12 1,000 mcg PO DAILY 10/24/23 12/05/23 11/05/23 History carvedilol 3.125 mg tablet (Coreg) 3.125 mg PO BID 10/24/23 12/04/23 12/04/23 History levothyroxine 125 mcg tablet 125 mcg PO DAILY 10/24/23 12/04/23 12/03/23 History losartan 50 mg tablet 50 mg PO DAILY 10/24/23 12/04/23 12/04/23 History metolazone 5 mg tablet 5 mg PO DAILY 10/24/23 12/04/23 12/03/23 History ferrous sulfate 325 mg (65 mg 325 mg PO DAILY 11/06/23 12/05/23 Unknown History iron) tablet (Iron (ferrous sulfate)) aspirin 81 mg tablet,delayed 81 mg PO DAILY #90 tabs 11/07/23 12/05/23 12/03/23 Rx release clopidogrel 75 mg tablet 75 mg PO DAILY #90 tabs 11/07/23 12/04/23 12/03/23 Rx hydrocodone 5 mg-acetaminophen 325 1 tab PO Q6H PRN pain #14 tabs 12/02/23 12/05/23 Unknown Rx mg tablet bumetanide 1 mg tablet 3 mg PO DAILY 12/04/23 12/04/23 12/03/23 History insulin glargine 100 unit/mL (3 60 unit SUBCUT QPM 12/04/23 12/04/23 12/03/23 History mL) subcutaneous pen (Lantus Solostar U-100 Insulin) Allergies Allergy/AdvReac Type Severity Reaction Status Date / Time No Known Allergies Allergy Verified 12/03/23 09:34 Current Medications Generic Name Dose Route Start Last Admin Trade Name Freq PRN Reason Stop Dose Admin Acetaminophen 650 mg 12/04/23 17:51 12/04/23 23:34 Acetaminophen 325 Mg Tablet PO 650 mg Q6H PRN Administration Mild/Mod Pain Or Temp >/= 101 Hydrocodone Bitart/Acetaminophen 1 tab 12/05/23 02:42 12/05/23 03:22 Hydrocodone-Acetaminophen 5-325 Mg Tablet PO 1 tab Q6H PRN Administration pain Sodium Chloride 1,000 mls @ 75 mls/hr 12/04/23 18:00 12/04/23 19:17 Sodium Chloride 0.9% IV 75 mls/hr .[id number] JYOTI Administration Piperacillin Sod/Tazobactam 50 mls @ 12.5 mls/hr 12/05/23 01:00 12/05/23 04:59 Sod 3.375 gm/ Sodium Chloride IV Infused Q8H JYOTI Infusion Protocol As Directed Insulin Human Lispro 0 unit 12/04/23 18:00 12/04/23 23:08 Insulin Lispro 100 Unit/1 Ml SUBCUT 1 unit WM&BEDTIME JYOTI Administration Protocol Ondansetron HCl 4 mg 12/04/23 17:51 12/04/23 19:41 Ondansetron 2 Mg/Ml Sdv 2 Ml IVP 4 mg Q8H PRN Administration vomiting, or N/V if npo PFSH Acute 2 PFSH: Medical History Peripheral arterial disease Limb ischemia Dyslipidemia Osteomyelitis of foot Diabetic wet gangrene of the foot Diabetes EZEQUIEL (acute kidney injury) Non-pressure chronic ulcer of other part of left foot with fat layer exposed Cardiomyopathy EZEQUIEL (acute kidney injury) Bradycardia Aortic valve disease 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 mellitus MSSA (methicillin susceptible Staphylococcus aureus) infection Gangrene PVD (peripheral vascular disease) 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 on 07/21/2021 Acute hypokalemia Osteomyelitis of toe of left foot History of nonmelanoma skin cancer Atrial fibrillation Paroxysmal Benign prostatic hyperplasia Chronic anticoagulation Xarelto Hypertensive urgency NSTEMI (non-ST elevated myocardial infarction) Congestive heart failure Anticoagulation adequate with anticoagulant therapy Xarelto Varicose vein of leg Obesity HTN (hypertension) Diabetes TIA (transient ischemic attack) Surgical History S/P cholecystectomy S/P cataract extraction S/P AVR (aortic valve replacement) Bioprosthetic, bovine Family History Father Diabetes Hypertension Grandfather Diabetes PATERNAL Hypertension PATERNAL Social History Smoking and tobacco/nicotine status: former use of tobacco/nicotine Alcohol intake: former Substance/Drug Use: never Marital status: / service: No Current occupational status: retired Current occupation: retired from [employer] Vitals/I&O/Wt Last Vital Signs Temp 97.6 F 12/05/23 04:00 Pulse 64 12/05/23 04:00 Resp 18 12/05/23 04:00 BP 123/62 12/05/23 04:00 Pulse Ox 100 12/05/23 04:00 O2 Del Method Room Air 12/04/23 20:36 12/04/23 12/05/23 12/05/23 22:59 06:59 14:59 Intake Total 2350 / 2350 1530 / 3880 Output Total 575 / 575 Balance 2350 / 2350 955 / 3305 Weight last 48 hrs Weight 185 lb Weight 187 lb 8 oz Physical Exam 2 Narrative: GENERAL: Patient is alert, awake and oriented x3. [] NECK: No jugular vein distension. [] HEENT: No cyanosis. No icterus. No pallor. [] HEART: Regular S1 and S2. Grade 2/6 systolic murmur LUNGS: Clear to auscultate bilaterally. [] CENTRAL NERVOUS SYSTEM: Grossly nonfocal. [] EXTREMITIES: Pulses are not palpable Data 12/05/23 05:25 12/05/23 05:25 Micro: Microbiology 12/04/23 18:15 Blood Culture - Preliminary Blood SPECIMEN COLLECTED 12/04/23 18:12 Blood Culture - Preliminary Blood SPECIMEN COLLECTED A&P Assessment and plan (1) Limb ischemia: (2) CKD (chronic kidney disease): (3) Dyslipidemia: Plan Patient has critical limb ischemia and gangrene of right lower extremity. We will proceed with peripheral angiogram and attempt revascularization. Risk and benefits have been discussed in detail with the patient. He shows understanding and wants to proceed. N.p.o. Thank you for involving us with care of this patient. We will continue to follow. Please call with questions. Consult Attestations 2 Medical Necessity Statement: Care expected to cross 2 midnights. Coding Level of Care Code Acute Code for [facility] Fwd Diagnoses Limb ischemia I99.8 CKD (chronic kidney disease) N18.9 Dyslipidemia E78.5
--- NOTE | 2023-12-05 09:26 | W.PM.OPSUD ---
Surgery/Procedure H&P Update DATE OF PROCEDURE: December 05, 2023 DATE H&P PERFORMED: 12/05/23 H&P UPDATE INFORMATION: I have reviewed H&P completed within last 30 days, I have examined patient prior to procedure and No changes to prior documentation PREOP DIAGNOSIS: Critical limb ischemia/gangrene of right foot. PRIMARY INDICATION FOR PROCEDURE: Critical limb ischemia/gangrene of right foot. PLANNED PROCEDURE: Peripheral angiogram with intervention of right lower extremity PATIENT REASSESSED PRIOR TO SEDATION, WITH NO CHANGE NOTED: Yes PHYSICAL EXAM: alert, oriented x 3, clear to auscultation bilaterally and regular rate & rhythm AIRWAY EVAL/ANESTHESIA PLAN: normal airway, ASA III, Local Anesthesia, Risks, benefits & alternatives of sedation and/or procedure discussed and Patient agrees to continue as planned
[2023-12-05 09:59] LABS: Bacillus cereus group Not Detected (NOT DETECT); Bacillus subtillis group Not Detected (NOT DETECT); Corynebacterium Not Detected (NOT DETECT); Cutibacterium acnes (P.acnes) Not Detected (NOT DETECT); Enterococcus Detected (NOT DETECT); Enterococcus faecalis Detected (NOT DETECT); Enterococcus faecium Not Detected (NOT DETECT); Lactobacillus species Not Detected (NOT DETECT); Listeria Not Detected (NOT DETECT); Listeria monocytogenes Not Detected (NOT DETECT); Micrococcus Not Detected (NOT DETECT); Pan Candida Not Detected (NOT DETECT); Pan Gram-Negative Not Detected (NOT DETECT); Staphylococcus epidermidis Not Detected (NOT DETECT); Staphylococcus lugdunensis Not Detected (NOT DETECT); Staphylococcus species Not Detected (NOT DETECT); Streptococcus agalactiae Not Detected (NOT DETECT); Streptococcus anginosus group Not Detected (NOT DETECT); Streptococcus pneumoniae Not Detected (NOT DETECT); Streptococcus pyogenes Not Detected (NOT DETECT); Streptococcus species Not Detected (NOT DETECT); vanA Not Detected ` (NOT DETECT); vanC Not Detected (NOT DETECT)
--- NOTE | 2023-12-05 10:23 | PC.NURSE ---
Recovery Note Pt arrived to CPRU room 3 post peripheral intervention. Pt drowsy and arouses and follows commands to verbal stimuli. Pt placed on bedside cardiac monitor technician. O2 sat 87% on room air. Placed on 2L NC sats 97%. Pt denies pain. Left groin has sutured in 6 fr sheath connected to pressure bag. Site asymptomatic, no signs of bleeding or hematoma.
--- NOTE | 2023-12-05 10:23 | PM.MISC ---
Miscellaneous Note Purpose of Documentation: Brief procedure note Note: Peripheral intervention: Right common iliac, right external iliac, common femoral arteries patent. Right SFA is totally occluded from ostial to mid segment. Reconstitutes via weak collaterals from profunda. Slow flow in below the knee vasculature. s/p successful revascularization with balloon angioplasty with excellent flow. Below the knee has severe PAD with 1 vessel run off. Patent peroneal artery. Posterior tibial artery reconstitutes distally via collaterals. Anterior tibial artery is occluded We will start aspirin. If OK with surgery/ podiatry resume plavix. Otherwise can resume after amputation.
[2023-12-05] MEDS: sodium chloride 0.9% 1,000 ML 12.5 ML IV (11:09)
[2023-12-05 11:55] LABS: Glucose Point of Care 123 mg/dL (70-110)
--- NOTE | 2023-12-05 12:00 | P.PN_ITS ---
Subjective 2 Subjective: Seen this morning after peripheral angiogram procedure. Peripheral intervention: Right common iliac, right external iliac, common femoral arteries patent. Right SFA is totally occluded from ostial to mid segment. Reconstitutes via weak collaterals from profunda. Slow flow in below the knee vasculature. s/p successful revascularization with balloon angioplasty with excellent flow. Below the knee has severe PAD with 1 vessel run off. Patent peroneal artery. Posterior tibial artery reconstitutes distally via collaterals. Anterior tibial artery is occluded Patient resting comfortably in bed. Podiatry notified of above results. Patient does not offer any complaints at this time All 4 blood cultures positive for Enterococcus faecalis. Vitals/I&O/Wt Last Vital Signs Temp 99.8 F H 12/05/23 08:00 Pulse 61 12/05/23 10:44 Resp 15 12/05/23 10:44 BP 126/48 12/05/23 10:44 Pulse Ox 96 12/05/23 10:44 O2 Del Method Nasal Cannula 12/05/23 10:44 O2 Flow Rate 2 12/05/23 10:44 12/04/23 12/05/23 12/05/23 22:59 06:59 14:59 Intake Total 2350 / 2350 1530 / 3880 1000 / 1000 Output Total 575 / 575 Balance 2350 / 2350 955 / 3305 1000 / 1000 Weight last 48 hrs Weight 83.915 kg Weight 85.049 kg Physical Exam 2 Narrative: Patient is very hard of hearing Mild signs of fluid overload On 2 L nasal cannula at this time Febrile, 99.8 Lungs mainly clear to auscultation no wheezes no rhonchi Pleasant and cooperative Right foot covered with dressing with a healing ulcer Pulses palpable left foot Right foot pulses are nonpalpable Right fourth toe amputation, contracted digits 2 through 5. History of partial fourth and fifth ray amputation with left foot secondary to gangrene. Data 12/05/23 05:25 12/05/23 05:25 Micro: Microbiology 12/04/23 18:15 Blood Culture - Preliminary Blood Enterococcus faecalis 12/04/23 18:12 Blood Culture - Preliminary Blood SPECIMEN COLLECTED A&P Assessment and plan (1) Peripheral arterial disease: (2) Peripheral vascular disease of extremity: (3) CKD (chronic kidney disease): (4) Osteomyelitis of right foot: Qualifiers: Osteomyelitis type: chronic, with draining sinus Qualified Code(s): M 86.471 - Chronic osteomyelitis with draining sinus, right ankle and foot (5) Cellulitis and abscess of right lower extremity: (6) Necrosis of toe: (7) Amputation of toe: Qualifiers: Laterality: unspecified laterality Qualified Code(s): S98.139A - Complete traumatic amputation of one unspecified lesser toe, initial encounter (8) Gangrene of toe of right foot: (9) Sepsis: (10) Limb ischemia: Plan #Sepsis secondary to most likely osteomyelitis, evidence of endorgan damage, lactic acidosis, fever, leukocytosis criteria met on admission. #Enterococcus faecalis bacteremia 44 bottles positive #Dry gangrene #Limb ischemia??Status post intervention #History of osteomyelitis and other toes requiring amputation #History of peripheral arterial disease, intervention performed in the past #Chronic wounds #Chronic kidney disease #Diabetes mellitus type 2, insulin-dependent - Criteria met with endorgan damage, fever, leukocytosis high lactic acid - Check MRI right foot with and without contrast -Patient underwent peripheral angiogram today. Had balloon angioplasty done to SFA. ? Will need tight blood glucose control ? Placed on vancomycin and Zosyn. Previous cultures have been positive for Staph aureus however with repeated infections he may have developed MRSA. ? Blood cultures obtained and antibiotic started in the ER. ? Patient is bacteremic. Will repeat blood cultures every 48 hours till clearance ? Podiatry notified of peripheral angiogram results. ? Plan for transmetatarsal amputation ? Will keep patient n.p.o. depending upon podiatry schedule open procedure will be. ? Will continue to monitor for fluid overload. ? Cardiology consulted. Appreciate recommendations ? Podiatry consulted. Appreciate recommendations. ?Patient will need long-term IV antibiotics after discharge secondary to bacteremia. Full Code Attestations 2 Medical Necessity Statement*: requires continued hospitalization 2/2 to osteomyelitis, bacteremia requiring TMA. Diagnoses Peripheral arterial disease I73.9 Peripheral vascular disease of extremity I73.9 CKD (chronic kidney disease) N18.9 Chronic osteomyelitis of right foot with draining sinus M86.471 Osteomyelitis type: chronic, with draining sinus Cellulitis and abscess of right lower extremity L03.115; L02.415 Necrosis of toe I96 Amputated toe, unspecified laterality S98.139A Laterality: unspecified laterality Gangrene of toe of right foot I96 Sepsis A41.9 Limb ischemia I99.8
--- NOTE | 2023-12-05 12:55 | PC.NURSE ---
received call from Dr Duggan with instruction to allow patient to a have diet order and next NPO time 12/06/23 0001
[2023-12-05 13:16] LABS: Partial Thromboplastin Time 57.8 SECONDS (23.9-36.7)
--- NOTE | 2023-12-05 15:01 | PC.NURSE ---
Dr Duggan called and requested nurse put in a consult for him to see this patient. Nurse entered order under Dr. Castelan.
[2023-12-05 16:17] LABS: Partial Thromboplastin Time 42.7 SECONDS (23.9-36.7)
--- NOTE | 2023-12-05 16:42 | PC.NURSE ---
Sheath pulled at 0605. No hematoma formation. Patient tolerated procedure well. Pressure applied for 20 min. Once released, bleedng was stopped. Gauze and tegaderm applied to site. Patient told his up time would be 2030 at the earliest. Patient educated on keeping left leg straight until told he could bend it by the nurses. Patient verbalized understanding.
[2023-12-05 17:13] LABS: Glucose Point of Care 242 mg/dL (70-110)
[2023-12-05] MEDS: vancomycin 1,250 MG/250 ML PIGGYBACK 250 MG IV (17:33)
--- NOTE | 2023-12-05 17:41 | PC.NURSE ---
patient refusing humalog stating he only wishes to take lantus at this time. Patient also has a Marisela CGM on his left arm.
--- NOTE | 2023-12-05 19:37 | P.PN_ITS ---
Subjective 2 Subjective: Patient seen bedside this afternoon, he underwent revascularization to the right lower extremity this a.m. Discussed TMA versus BKA, patient would like to proceed with TMA with understanding that it made require higher level amputation should it not heal. Vitals/I&O/Wt Last Vital Signs Temp 98.8 F 12/05/23 19:25 Pulse 66 12/05/23 19:25 Resp 20 H 12/05/23 19:25 BP 105/59 12/05/23 19:25 Pulse Ox 96 12/05/23 19:25 O2 Del Method Nasal Cannula 12/05/23 19:25 O2 Flow Rate 3 12/05/23 19:25 12/05/23 12/05/23 12/05/23 06:59 14:59 22:59 Intake Total 1530 / 3880 1000 / 1000 780 / 1780 Output Total 575 / 575 275 / 275 290 / 565 Balance 955 / 3305 725 / 725 490 / 1215 Weight last 48 hrs Weight 185 lb Weight 187 lb 8 oz Physical Exam 2 Narrative: GENERAL: Patient is alert and oriented ?3 and in no acute distress. The following is a focused bilateral lower extremity exam. VASCULAR: Dorsalis pedis faintly palpable bilaterally. Posterior tibial arteries faintly palpable. Diminished pedal hair growth bilaterally. NEUROLOGICAL: Protective sensation intact 10 sites, tested with [place] monofilament to bilateral feet. DERMATOLOGICAL: Ischemic appearing right foot with rubor, dusky beach changes to the great toe and dry stable eschar to the right fifth toe without drainage, no crepitus with soft tissue palpation. Grade 2 wound to the dorsal medial aspect of the right great toe. Wound at the partial ray amputation left foot is grade 2 exposed to fat layer without purulence, erythema or proximal lymphangitic streaking. MUSCULOSKELETAL: History of right fourth toe amputation. Contracted digits 2, 3, 5 with history of osteotomy of the second, third and fourth distal metatarsals. History of partial fourth and fifth ray amputation left foot secondary to gangrene. Data 12/05/23 05:25 12/05/23 05:25 Micro: Microbiology 12/04/23 18:12 Blood Culture - Preliminary Blood NEGATIVE TO DATE 12/04/23 18:15 Blood Culture - Preliminary Blood Enterococcus faecalis A&P Assessment and plan (1) Limb ischemia: (2) Peripheral arterial disease: (3) Gangrene of toe of right foot: Plan 73-year-old male with gangrene right foot, status post revascularization to the right lower extremity this a.m. Reviewed patient's clinical, laboratory and imaging findings and discussed revascularization findings with the patient at length. We reviewed risk and benefits of transmetatarsal potation versus below-knee amputation to the right lower extremity. Patient would like to proceed with TMA, will be scheduled for tomorrow 7:00 AM. He has a thorough understanding that should this fail to heal down the road that he may require an additional surgery and a higher level of amputation. -N.p.o. at midnight -Right transmetatarsal amputation tomorrow morning December 06, 2023 7:00 -Planning on delayed closure Attestations 2 Medical Necessity Statement*: gangrene right foot Coding Level of Care Code Acute Code for [facility] Diagnoses Limb ischemia I99.8 Peripheral arterial disease I73.9 Gangrene of toe of right foot I96
[2023-12-05 20:22] LABS: Glucose Point of Care 338 mg/dL (70-110)
[2023-12-06] VITALS (28 sets, daily range): BP systolic 87–131; BP diastolic 32–67; PULSE 51–75; RESP 0–23; TEMP 36.2–37.2; O2SAT 86–100
[2023-12-06] MEDS: piperacillin-tazobactam 3.375 GM in sodium chloride 0.9% (plus) 50 ML IV ×2 (00:48→16:15)
[2023-12-06 06:38] LABS: Glucose Point of Care 241 mg/dL (70-110)
[2023-12-06] MEDS: sodium chloride 0.9% 1,000 ML 30 ML IV (06:45)
--- NOTE | 2023-12-06 07:06 | P.ANESASSM_ITS ---
Pre-Anesthetic Assessment Height/Weight: Height 1.78 m Weight 83.915 kg Temp Pulse Resp BP Pulse Ox O2 Del Method O2 Flow Rate 97.7 F 62 16 124/44 92 Room Air 3 12/06/23 06:26 12/06/23 06:26 12/06/23 06:26 12/06/23 06:26 12/06/23 06:26 12/06/23 06:26 12/06/23 05:00 Preop Diagnosis: Critical limb ischemia/gangrene of right foot. Operation Date: 12/05/23 10:10 Proposed Procedures p Peripheral Intervention(Not Applicable) - Jaime Moore M.D Operation Date: 12/06/23 07:10 Proposed Procedures p Right transmetatarsal amputation(Right) - Garrick Duggan DPM Familial anesthetic complications: none Was Clonidine taken within 24 hours: N/A Last intake: Intake Last Liquid Date 07/15/23 Last Solid Date 07/15/23 Social No alcohol and No tobacco Quit years ago on morning of CABG Exam alert, oriented x 3, clear to auscultation bilaterally and regular rate & rhythm Airway Submandibular: within normal limits Cervical ROM: within normal limits Mallampati: Class II Dentition: false Pulmonary Chronic Obstructive Pulmonary Disease CV/HEM Anemia, Arrythmia, Congestive Heart Failure, Hypertension, Murmur (AVR) and Peripheral Vascular Disease CABG Echo ?LV systolic function is mildly reduced with EF of 45-50% ?RV function is mildly reduced ?Left atrial dilation ?Mild mitral regurgitation ?Bioprosthetic aortic valve. Mild to moderate aortic ?regurgitation.? Moderate aortic stenosis with aortic valve area ?1.1 cm2.? Mean gradient across aortic valve of 21 mmHg. DVI is ?0.26 ?Mild pulmonic regurgitation. Mild tricuspid regurgitation ?Mildly dilated ascending aorta ?Compared to prior echocardiogram from 08/2022, no significant ?changes are seen ?Jaime Moore MD ?(Electronically Signed) ?Final Date:? ? ? 17 June 2023 Chronic Renal Insufficiency Metabolic Diabetes Mellitus and Hyperlipidemia Anesthetic Plan ASA status: 3 Anesthesia: MAC Risk of > 500 ml blood loss (7ml/kg in children): No Medications/Allergies Home Medications Medication Instructions Recorded Confirmed Last Taken Type duloxetine 60 mg capsule,delayed 60 mg PO BEDTIME 02/22/20 12/04/23 12/03/23 History release (Cymbalta) empagliflozin 25 mg tablet 25 mg PO QAM 05/06/21 12/04/23 12/04/23 History (Jardiance) multivitamin 1 tab PO QAM 05/06/21 12/05/23 11/05/23 History cholecalciferol (vitamin D3) 25 25 mcg PO QAM 08/01/21 12/05/23 12/03/23 History mcg (1,000 unit) capsule flash glucose sensor (FreeStyle #1 ea 05/01/22 12/04/23 10/11/22 History Marisela 14 Day Sensor kit) sertraline 50 mg tablet 50 mg PO QAM 11/14/22 12/04/23 12/03/23 History Diabetic shoes with 3 pair of #1 ea 11/28/22 12/04/23 Unknown Rx inserts tamsulosin 0.4 mg capsule (Flomax) 0.8 mg (2 x 0.4 mg) PO BEDTIME #14 07/23/23 12/04/23 11/04/23 Rx caps potassium chloride 20 mEq 20 meq PO BID #20 tabs 10/03/23 12/04/23 12/03/23 Rx tablet,extended release Vit B-12 1,000 mcg PO DAILY 10/24/23 12/05/23 11/05/23 History carvedilol 3.125 mg tablet (Coreg) 3.125 mg PO BID 10/24/23 12/04/23 12/04/23 History levothyroxine 125 mcg tablet 125 mcg PO DAILY 10/24/23 12/04/23 12/03/23 History losartan 50 mg tablet 50 mg PO DAILY 10/24/23 12/04/23 12/04/23 History metolazone 5 mg tablet 5 mg PO DAILY 10/24/23 12/04/23 12/03/23 History ferrous sulfate 325 mg (65 mg 325 mg PO DAILY 11/06/23 12/05/23 Unknown History iron) tablet (Iron (ferrous sulfate)) aspirin 81 mg tablet,delayed 81 mg PO DAILY #90 tabs 11/07/23 12/05/23 12/03/23 Rx release clopidogrel 75 mg tablet 75 mg PO DAILY #90 tabs 11/07/23 12/04/23 12/03/23 Rx hydrocodone 5 mg-acetaminophen 325 1 tab PO Q6H PRN pain #14 tabs 12/02/23 12/05/23 Unknown Rx mg tablet bumetanide 1 mg tablet 3 mg PO DAILY 12/04/23 12/04/23 12/03/23 History insulin glargine 100 unit/mL (3 60 unit SUBCUT QPM 12/04/23 12/04/23 12/03/23 History mL) subcutaneous pen (Lantus Solostar U-100 Insulin) Allergies Allergy/AdvReac Type Severity Reaction Status Date / Time No Known Allergies Allergy Verified 12/03/23 09:34 Current Medications Generic Name Dose Route Start Last Admin Trade Name Freq PRN Reason Stop Dose Admin Acetaminophen 650 mg 12/04/23 17:51 12/04/23 23:34 Acetaminophen 325 Mg Tablet PO 650 mg Q6H PRN Administration Mild/Mod Pain Or Temp >/= 101 Hydrocodone Bitart/Acetaminophen 1 tab 12/05/23 02:42 12/05/23 20:15 Hydrocodone-Acetaminophen 5-325 Mg Tablet PO 1 tab Q6H PRN Administration pain Sodium Chloride 1,000 mls @ 75 mls/hr 12/04/23 18:00 12/05/23 22:00 Sodium Chloride 0.9% IV 75 mls/hr .[id number] JYOTI Infusion Piperacillin Sod/Tazobactam 50 mls @ 12.5 mls/hr 12/05/23 01:00 12/06/23 05:03 Sod 3.375 gm/ Sodium Chloride IV Infused Q8H JYOTI Infusion Protocol As Directed Vancomycin/PEG/NADA/Lysine/Water 1,250 mg in 250 mls @ 250 mls/hr 12/05/23 18:00 12/05/23 18:44 Vancocin IV Infused Q24H JYOTI Infusion Insulin Human Lispro 0 unit 12/04/23 18:00 12/05/23 20:08 Insulin Lispro 100 Unit/1 Ml SUBCUT Not Given WM&BEDTIME JYOTI Protocol Ondansetron HCl 4 mg 12/04/23 17:51 12/04/23 19:41 Ondansetron 2 Mg/Ml Sdv 2 Ml IVP 4 mg Q8H PRN Administration vomiting, or N/V if npo Pantoprazole Sodium 40 mg 12/05/23 09:00 12/05/23 10:[address] 40 Mg Tablet PO Not Given DAILY [facility] Anesthesia Medical History Peripheral arterial disease Limb ischemia Dyslipidemia Osteomyelitis of foot Diabetic wet gangrene of the foot Diabetes EZEQUIEL (acute kidney injury) Non-pressure chronic ulcer of other part of left foot with fat layer exposed Cardiomyopathy EZEQUIEL (acute kidney injury) Bradycardia Aortic valve disease 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 mellitus MSSA (methicillin susceptible Staphylococcus aureus) infection Gangrene PVD (peripheral vascular disease) 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 on 07/21/2021 Acute hypokalemia Osteomyelitis of toe of left foot History of nonmelanoma skin cancer Atrial fibrillation Paroxysmal Benign prostatic hyperplasia Chronic anticoagulation Xarelto Hypertensive urgency NSTEMI (non-ST elevated myocardial infarction) Congestive heart failure Anticoagulation adequate with anticoagulant therapy Xarelto Varicose vein of leg Obesity HTN (hypertension) Diabetes TIA (transient ischemic attack) Surgical History S/P cholecystectomy S/P cataract extraction S/P AVR (aortic valve replacement) Bioprosthetic, bovine Family History Father Diabetes Hypertension Grandfather Diabetes PATERNAL Hypertension PATERNAL Social History Smoking and tobacco/nicotine status: former use of tobacco/nicotine Alcohol intake: former Substance/Drug Use: never Marital status: / service: No Current occupational status: retired Current occupation: retired from [employer] Anesthesia 12/05/23 05:25 12/05/23 05:25 Short CBC 12/04/23 12/05/23 Range/Units 16:40 05:25 WBC 13.39 H 10.05 (3.29-11.43) 10^3/uL Hgb 10.50 L 9.30 L (11.27-16.99) g/dL Hct 33.3 L 29.9 L (37-53) % MCV 86.3 87.9 (82-101) fl Plt Count 193 156 L (157-399) 10^3/cmm Neut % (Auto) 90.3 85.3 % Neut # (Auto) 12.09 H 8.58 H (1.8-7.7) 10^3/uL BMP 12/04/23 12/05/23 16:40 05:25 Sodium 136 136 Potassium 3.5 3.1 L Chloride 101 101 Carbon Dioxide 20 L 19 L BUN 40 H 39 H Creatinine 1.9 H 1.8 H Glucose 149 H 105 Calcium 8.7 8.2 L Liver Function 12/04/23 12/05/23 Range/Units 16:40 05:25 Total Bilirubin 1.0 0.9 (0.15-1.2) mg/dL AST 23 114 H (0-40) U/L ALT 20 38 (0-41) U/L Alkaline Phosphatase 70 65 (40-130) U/L Albumin 3.9 3.1 L (3.5-5.2) g/dL Urine 12/04/23 Range/Units 23:50 Urine Color Yellow (Yellow) Urine Appearance Clear (CLEAR) Urine pH 5 (5-7) Ur Specific [place] 1.015 (1.005-1.030) Urine Protein 1+ H (Negative) Urine Glucose (UA) 1+ H (Normal) Urine Ketones Negative (Negative) Urine Nitrate Negative (Negative) Urine Bilirubin Neg (Negative) Ur Leukocyte Esterase Negative (Negative) Urine RBC 0-4 H (0-2) /hpf Urine WBC 0-4 H (0-5) /hpf Coags 12/04/23 12/05/23 12/05/23 16:40 12:56 14:43 ESR 31 H PT 15.70 H INR 1.21 H APTT 57.8 H 42.7 H C-Reactive Protein 31.5 H Microbiology 12/04/23 18:12 Blood Culture - Preliminary Blood NEGATIVE TO DATE 12/04/23 18:15 Blood Culture - Preliminary Blood Enterococcus faecalis Cardiac Studies: 2 Echocardiogram 05/30/23 Echocardiogram Ultrasound 07/05/20 Transesophageal Echocardiogram 10/12/22 Sestamibi Stress Test (Cardiology) 01/03
[2023-12-06 07:16] LABS: Anion Gap 18.3 (5-19); Blood Urea Nitrogen 51 mg/dL (8-23); Calcium 7.9 mg/dL (8.5-10.5); Carbon Dioxide 18 mmol/L (22-29); Chloride 101 mmol/L (98-107); Creatinine Clr Calc Pharmacy 29.5495; Glucose 227 mg/dL (65-115); Osmolality Calculated 299 mOsm/kg (285-295); Potassium 3.3 mmol/L (3.5-5.1); Sodium 134 mmol/L (136-145)
--- NOTE | 2023-12-06 08:20 | P.HPUD_ITS ---
Surgery/Procedure H&P Update DATE OF PROCEDURE: December 06, 2023 DATE H&P PERFORMED: 12/05/23 H&P UPDATE INFORMATION: I have reviewed H&P completed within last 30 days, I have examined patient prior to procedure, No changes to prior documentation and H&P is in [facility] [place] on date indicated PREOP DIAGNOSIS: Critical limb ischemia/gangrene of right foot. PLANNED PROCEDURE: Operation Date: 12/05/23 10:10 Proposed Procedures p Peripheral Intervention(Not Applicable) - Jaime Moore M.D Operation Date: 12/06/23 07:10 Proposed Procedures p Right transmetatarsal amputation(Right) - Garrick Duggan DPM
[2023-12-06] MEDS: BUPivacaine 0.5% INJ 30 mL INJECTION (08:54)
[2023-12-06] MEDS: lidocaine 2% INJ 20 mL INJECTION (08:54)
--- NOTE | 2023-12-06 09:11 | P.BOP_ITS ---
Date of Procedure: 12/06/23 Surgeon: Garrick Duggan DPM Housekeeper Manager(s): Jaren Procedure(s) performed: Transmetatarsal amputation Findings of the procedure(s): Gangrene right forefoot Estimated blood loss: 10 mL Specimen(s) removed: Right forefoot sent to pathology for permanent Post-operative diagnosis: Gangrene right foot No complications with anesthesia or surgery
--- NOTE | 2023-12-06 09:12 | PM.OP ---
Operative Report Date of procedure: December 06, 2023 Pre-op diagnosis: Gangrene right foot Post-op diagnosis: gangrene right foot Post-op findings: Good blood flow at transmetatarsal amputation site, clean margin at transmetatarsal amputation site. Procedure done: Right transmetatarsal amputation CPT code 52044 Implants: 3-0 nylon Specimens removed/disposition: None Pathology: Right forefoot sent to pathology for gross anatomic review Surgeon: Garrick Duggan DPM Chimney Builder Helper: Jaren Estimated blood loss: 10 18 IV fluids: 0 Urine output: 0 Complications: None Findings: Gangrene right forefoot Brief History: Patient presented with gangrene to the right forefoot, underwent revascularization January 03, 2024 and proposed transmetatarsal potation as a potential level of amputation that would provide source control for infection and potentially vascularized enough for healing. Patient understands that should this fail due to a variety of reasons whether this be infection, delayed healing, dehiscence or underperfusion this would necessitate a higher level of amputation such as ability amputation. Patient is agreeable wishes to proceed. Procedure: Under mild sedation the patient was brought to the operating room and remained on the gurney in supine position. A timeout was performed. Anesthesia was then administered by the anesthesia service. Local anesthesia was then injected by myself consisting of 30 cc of one-to-one mixture 1% lidocaine and 0.5% Marcaine plain and a right ankle block fashion. Well-padded pneumatic tourniquet was applied to the right ankle. The right lower extremity was scrubbed, prepped and draped utilizing normal aseptic technique. Right foot was elevated and tourniquet inflated to 250 mmHg. Attention was directed to the right forefoot where gangrenous changes were appreciated at the right forefoot especially at the fifth toe with black eschar. A fishmouth incision was performed full-thickness through skin and down to bone with a #10 blade encompassing the right forefoot followed by transection of metatarsals 1, 2, 3, 4, 5 with a sagittal saw maintaining the metatarsal parabola beveling edges of the first and fifth metatarsal. Right forefoot was then passed from the operative field and sent to pathology for gross anatomic review. The incision was irrigated with saline solution, all bleeders were ligated and cauterized as necessary. Tendons were transected under traction at the most proximal margin. No pulsatile bleeding was appreciated. Skin bleeding was appreciated circumferentially at the incision indicating that he had healing potential. No further devitalized tissue was appreciated following transmetatarsal amputation. After further irrigation skin retention sutures were placed to approximate the skin flap loosely to allow for primary delayed closure pending his clinical response over the next 2 to 3 days. Dressings were then applied consisting of Adaptic, sterile 4 x 4's, ABD pad, Kerlix and Benoit wrap followed by well-padded multilayer posterior splint. Tourniquet was deflated and a prompt hyperemic response was noted to the distal transmetatarsal amputation stump. Patient tolerated the procedure and anesthesia well and was transferred to the PACU with vital signs stable and vascular status intact. Following a period of postoperative monitoring he will be transferred back to the cardiac stepdown unit, will continue IV antibiotics, will monitor daily and anticipate primary delayed closure Saturday next week at noon.
[2023-12-06] MEDS: ondansetron 2 mg/ML SDV 2 mL 4 MG IVP (09:27)
[2023-12-06] MEDS: sodium chloride 0.9% 1,000 ML 100 ML IV (10:49)
[2023-12-06 10:56] LABS: Glucose Point of Care 272 mg/dL (70-110)
--- NOTE | 2023-12-06 12:07 | P.PN_ITS ---
Subjective 2 Subjective: Patient had amputation today. He has foot pain. Has developed ROSA and creatinine worsening. Vitals/I&O/Wt Last Vital Signs Temp 97.2 F L 12/06/23 11:54 Pulse 63 12/06/23 11:54 Resp 14 12/06/23 11:54 BP 125/47 12/06/23 11:54 Pulse Ox 95 12/06/23 11:54 O2 Del Method Nasal Cannula 12/06/23 11:54 O2 Flow Rate 3 12/06/23 05:00 12/05/23 12/06/23 12/06/23 22:59 06:59 14:59 Intake Total 942.5 / 1942.5 50 / 1992.5 1287.5 / 1287.5 Output Total 740 / 1015 250 / 1265 5 / 5 Balance 202.5 / 927.5 -200 / 727.5 1282.5 / 1282.5 Weight last 48 hrs Weight 185 lb Weight 185 lb Weight 187 lb 8 oz Physical Exam 2 Narrative: GENERAL: Patient is alert, awake and oriented x3. [] NECK: No jugular vein distension. [] HEENT: No cyanosis. No icterus. No pallor. [] HEART: Regular S1 and S2. Grade 2/6 systolic murmur LUNGS: Clear to auscultate bilaterally. [] CENTRAL NERVOUS SYSTEM: Grossly nonfocal. [] EXTREMITIES: Pulses are not palpable Data 12/07/23 04:15 12/07/23 04:15 Micro: Microbiology 12/04/23 18:12 Blood Culture - Preliminary Blood NEGATIVE TO DATE 12/04/23 18:15 Blood Culture - Preliminary Blood Enterococcus faecalis A&P Assessment and plan (1) Limb ischemia: (2) CKD (chronic kidney disease): (3) Dyslipidemia: (4) EZEQUIEL (acute kidney injury): Plan Patient had a successful revascularization of right SFA with balloon angioplasty. He has brisk single-vessel runoff with collaterals to posterior tibial as well. Had amputation of right foot today. (transmetatarsal) He has developed ROSA. Will need IV hydration. Monitor renal function closely. Thank you for involving us with care of this patient. We will continue to follow. Please call with questions. Attestations 2 Medical Necessity Statement*: Care expected to cross 2 midnights. Coding Level of Care Code Acute Code for [facility] Diagnoses Limb ischemia I99.8 CKD (chronic kidney disease) N18.9 Dyslipidemia E78.5 EZEQUIEL (acute kidney injury) N17.9
--- NOTE | 2023-12-06 12:16 | P.PN_ITS ---
Subjective 2 Subjective: seen today no acute events overnight s/p TMA this AM still under anesthesia seen post-op Cr 2.4 today Vitals/I&O/Wt Last Vital Signs Temp 97.2 F L 12/06/23 11:54 Pulse 63 12/06/23 11:54 Resp 14 12/06/23 11:54 BP 125/47 12/06/23 11:54 Pulse Ox 95 12/06/23 11:54 O2 Del Method Nasal Cannula 12/06/23 11:54 O2 Flow Rate 3 12/06/23 05:00 12/05/23 12/06/23 12/06/23 22:59 06:59 14:59 Intake Total 942.5 / 1942.5 50 / 1992.5 1287.5 / 1287.5 Output Total 740 / 1015 250 / 1265 5 / 5 Balance 202.5 / 927.5 -200 / 727.5 1282.5 / 1282.5 Weight last 48 hrs Weight 83.915 kg Weight 83.915 kg Weight 85.049 kg Physical Exam 2 Narrative: Patient is very hard of hearing, sedated at this time On 2 L nasal cannula at this time Lungs mainly clear to auscultation no wheezes no rhonchi Pleasant and cooperative Right foot covered with dressing s/p surgery Data 12/05/23 05:25 12/06/23 06:30 Micro: Microbiology 12/04/23 18:12 Blood Culture - Preliminary Blood NEGATIVE TO DATE 12/04/23 18:15 Blood Culture - Preliminary Blood Enterococcus faecalis A&P Assessment and plan (1) Peripheral arterial disease: (2) Peripheral vascular disease of extremity: (3) CKD (chronic kidney disease): (4) Osteomyelitis of right foot: Qualifiers: Osteomyelitis type: chronic, with draining sinus Qualified Code(s): M 86.471 - Chronic osteomyelitis with draining sinus, right ankle and foot (5) Cellulitis and abscess of right lower extremity: (6) Necrosis of toe: (7) Amputation of toe: Qualifiers: Laterality: unspecified laterality Qualified Code(s): S98.139A - Complete traumatic amputation of one unspecified lesser toe, initial encounter (8) Gangrene of toe of right foot: (9) Sepsis: (10) Limb ischemia: Plan #Sepsis secondary to most likely osteomyelitis, evidence of endorgan damage, lactic acidosis, fever, leukocytosis criteria met on admission. #Enterococcus faecalis bacteremia 44 bottles positive #Dry gangrene s/p right foot TMA #Limb ischemia??Status post intervention #History of osteomyelitis and other toes requiring amputation #History of peripheral arterial disease, intervention performed in the past #Chronic wounds #EZEQUIEL on Chronic kidney disease #Diabetes mellitus type 2, insulin-dependent - Criteria met with endorgan damage, fever, leukocytosis high lactic acid -Patient underwent peripheral angiogram . Had balloon angioplasty to SFA. ? Will need tight blood glucose control ? Placed on vancomycin and Zosyn. Previous cultures have been positive for Staph aureus however with repeated infections he may have developed MRSA. ? Blood cultures obtained and antibiotic started in the ER. ? Patient is bacteremic. Will repeat blood cultures every 48 hours till clearance ? Podiatry notified of peripheral angiogram results. ? underwent R foot TMA today. pt to go back to OR for closure Friday 12/08 ? Will continue to monitor for fluid overload. ? Cardiology consulted. Appreciate recommendations ? Podiatry consulted. Appreciate recommendations. ?Patient may need long-term IV antibiotics after discharge secondary to bacteremia. =- repeat bcx pending - Cr. 2.4 . Possibly due to contast induced nephropathy. Continue NS @ 125 cc/hr. Full Code Attestations 2 Medical Necessity Statement*: continue to hospitalize for tx of osteomyelitis Diagnoses Peripheral arterial disease I73.9 Peripheral vascular disease of extremity I73.9 CKD (chronic kidney disease) N18.9 Chronic osteomyelitis of right foot with draining sinus M86.471 Osteomyelitis type: chronic, with draining sinus Cellulitis and abscess of right lower extremity L03.115; L02.415 Necrosis of toe I96 Amputated toe, unspecified laterality S98.139A Laterality: unspecified laterality Gangrene of toe of right foot I96 Sepsis A41.9 Limb ischemia I99.8
[2023-12-06] MEDS: HYDROcodone-acetaminophen 5-325 mg Tablet 1 TAB PO ×2 (14:30→20:41)
[2023-12-06] MEDS: morphine 4 mg/mL SDV 1 mL IVP (16:12)
[2023-12-06 16:46] LABS: Glucose Point of Care 345 mg/dL (70-110)
[2023-12-06] MEDS: insulin lispro 100 unit/1 mL SUBCUT ×2 (16:59→21:40)
[2023-12-06] MEDS: vancomycin 1,250 MG/250 ML PIGGYBACK 250 MG IV ×2 (17:20→17:33)
--- NOTE | 2023-12-06 17:55 | ANE.PACU2 ---
Inpatient post-anesthesia follow up: Airway intact: Yes Vital signs: Temperature 97.9 F Pulse Rate 62 Respiratory Rate 20 Blood Pressure 115/44 Pulse Oximetry 96 Oxygen Delivery Me thod Room Air Oxygen Flow Rate 3 Fraction of Inspir ed Oxygen Hydration adequate: Yes Nausea and vomiting: No Pain level: 2 Mental status: Baseline
[2023-12-06] MEDS: insulin glargine 100 units/1 mL 30 UNIT SUBCUT (21:40)
[2023-12-06 22:00] LABS: Glucose Point of Care 311 mg/dL (70-110)
[2023-12-07] VITALS (11 sets, daily range): BP systolic 124–149; BP diastolic 40–52; PULSE 58–68; RESP 13–20; TEMP 36.5–37; O2SAT 92–100; BMI 26.5
[2023-12-07] MEDS: piperacillin-tazobactam 3.375 GM in sodium chloride 0.9% (plus) 50 ML IV ×3 (01:18→17:26)
[2023-12-07] MEDS: HYDROcodone-acetaminophen 5-325 mg Tablet 1 TAB PO ×3 (02:12→23:02)
[2023-12-07] MEDS: morphine 4 mg/mL SDV 1 mL 2 MG IVP ×3 (03:02→19:52)
[2023-12-07 04:25] LABS: Basophils % 0.4 %; Eosinophils # 0.3 10^3/uL (0.0-0.8); Eosinophils % 3.2 %; Lymphocytes # 0.6 10^3/uL (0.8-4.8); Lymphocytes % 5.7 %; Mean Corpuscular HGB Conc 31.1 g/dL (30-55); Mean Corpuscular Hemoglobin 26.8 pg (27-33); Mean Corpuscular Volume 86.3 fl (82-101); Mean Platelet Volume 10.5 fL (7.4-10.4); Monocytes % 10.7 %; Neutrophils # 7.72 10^3/uL (1.8-7.7); Neutrophils % 79.6 %; Nucleated Red Blood Cells % 0 %; Platelet Count 170 10^3/cmm (157-399); Red Blood Count 3.13 10^6/uL (3.85-5.65)
[2023-12-07 04:46] LABS: Alanine Aminotransferase 42 U/L (0-41); Albumin Level 3.1 g/dL (3.5-5.2); Alkaline Phosphatase 59 U/L (40-130); Anion Gap 18.8 (5-19); Aspartate Amino Transferase 57 U/L (0-40); Blood Urea Nitrogen 61 mg/dL (8-23); Calcium 7.7 mg/dL (8.5-10.5); Carbon Dioxide 17 mmol/L (22-29); Chloride 104 mmol/L (98-107); Creatinine Clr Calc Pharmacy 23.6396; Globulin 2.8 g/dL (1.3-4.6); Glucose 98 mg/dL (65-115); Magnesium 2.2 mg/dL (1.7-2.3); Osmolality Calculated 299 mOsm/kg (285-295); Potassium 3.8 mmol/L (3.5-5.1); Sodium 136 mmol/L (136-145); Total Bilirubin 0.8 mg/dL (0.15-1.2); Total Protein 5.9 g/dL (6.6-8.7)
[2023-12-07 07:34] LABS: Glucose Point of Care 115 mg/dL (70-110)
[2023-12-07] MEDS: sodium chloride 0.9% 1,000 ML 100 ML IV ×2 (08:04→18:13)
[2023-12-07] MEDS: pantoprazole DR 40 mg Tablet PO (08:06)
--- NOTE | 2023-12-07 10:06 | P.PN_ITS ---
Subjective 2 Subjective: Patient seen bedside this a.m., denies any acute events overnight. Denies any pain to the right foot. Postoperative dressings are clean, dry and intact without strikethrough bleeding. Patient denies any subjective nausea, vomiting, fever, chills, shortness of breath or chest pain. Vitals/I&O/Wt Last Vital Signs Temp 97.8 F 12/07/23 07:23 Pulse 59 L 12/07/23 07:23 Resp 18 12/07/23 07:23 BP 124/51 12/07/23 07:23 Pulse Ox 97 12/07/23 07:23 O2 Del Method Room Air 12/07/23 07:23 O2 Flow Rate 3 12/06/23 05:00 12/06/23 12/07/23 12/07/23 22:59 06:59 14:59 Intake Total 354.167 / 1641.667 50 / 1691.667 240 / 240 Output Total 125 / 130 125 / 255 Balance 229.167 / 1511.667 -75 / 1436.667 240 / 240 Weight last 48 hrs Weight 185 lb Weight 185 lb Physical Exam 2 Narrative: GENERAL: Patient is alert and oriented ?3 and in no acute distress. The following is a focused bilateral lower extremity exam. VASCULAR: Dorsalis pedis palpable bilaterally. Posterior tibial arteries palpable. Diminished pedal hair growth bilaterally. NEUROLOGICAL: Protective sensation diminished to light touch. DERMATOLOGICAL: Stable appearing postoperative changes to right foot transmetatarsal amputation site. No purulence and no erythema. MUSCULOSKELETAL: Status post right transmetatarsal amputation. Data 12/07/23 04:15 12/07/23 04:15 Micro: Microbiology 12/06/23 13:25 Blood Culture - Preliminary Blood SPECIMEN COLLECTED 12/06/23 13:25 Blood Culture - Preliminary Blood SPECIMEN COLLECTED A&P Assessment and plan (1) Limb ischemia: (2) Peripheral arterial disease: (3) Gangrene of toe of right foot: Plan 73-year-old male with gangrene right foot, status post revascularization to the right lower extremity. 1 day status post right transmetatarsal potation secondary to gangrene. Date of operation December 06, 2023 Revascularization to the right lower extremity performed December 05, 2023 Patient doing well postoperatively. Plan for primary delayed closure next week Saturday at noon Podiatry will continue to round Attestations 2 Medical Necessity Statement*: Gangrene right foot Coding Level of Care Code Acute Code for [facility] Fwd Diagnoses Limb ischemia I99.8 Peripheral arterial disease I73.9 Gangrene of toe of right foot I96
--- NOTE | 2023-12-07 10:56 | P.PN_ITS ---
Subjective 2 Subjective: Patient has foot pain. However doing well. Creatinine worsening. Vitals/I&O/Wt Last Vital Signs Temp 97.8 F 12/07/23 07:23 Pulse 59 L 12/07/23 07:23 Resp 16 12/07/23 10:31 BP 124/51 12/07/23 07:23 Pulse Ox 92 12/07/23 10:31 O2 Del Method Room Air 12/07/23 07:23 O2 Flow Rate 3 12/06/23 05:00 12/06/23 12/07/23 12/07/23 22:59 06:59 14:59 Intake Total 354.167 / 1641.667 50 / 1691.667 240 / 240 Output Total 125 / 130 125 / 255 Balance 229.167 / 1511.667 -75 / 1436.667 240 / 240 Weight last 48 hrs Weight 185 lb Weight 185 lb Physical Exam 2 Narrative: GENERAL: Patient is alert, awake and oriented x3. [] NECK: No jugular vein distension. [] HEENT: No cyanosis. No icterus. No pallor. [] HEART: Regular S1 and S2. Grade 2/6 systolic murmur LUNGS: Clear to auscultate bilaterally. [] CENTRAL NERVOUS SYSTEM: Grossly nonfocal. [] EXTREMITIES: Pulses are not palpable Data 12/07/23 04:15 12/07/23 04:15 Micro: Microbiology 12/06/23 13:25 Blood Culture - Preliminary Blood SPECIMEN COLLECTED 12/06/23 13:25 Blood Culture - Preliminary Blood SPECIMEN COLLECTED A&P Assessment and plan (1) Limb ischemia: (2) CKD (chronic kidney disease): (3) Dyslipidemia: (4) EZEQUIEL (acute kidney injury): Plan Patient is otherwise stable. CAD and worsening with worsening creatinine to 3 today. Will continue with IV hydration. Monitor renal function Thank you for involving us with care of this patient. We will continue to follow. Please call with questions. Attestations 2 Medical Necessity Statement*: Care expected to cross 2 midnights. Coding Level of Care Code Acute Code for [facility] Fwd Diagnoses Limb ischemia I99.8 CKD (chronic kidney disease) N18.9 Dyslipidemia E78.5 EZEQUIEL (acute kidney injury) N17.9
[2023-12-07] MEDS: aspirin 81 mg EC Tablet PO (11:15)
[2023-12-07 12:13] LABS: Glucose Point of Care 131 mg/dL (70-110)
--- NOTE | 2023-12-07 14:39 | P.PN_ITS ---
Subjective 2 Subjective: Seen this morning. No acute events overnight. Patient sitting up at edge of bed. Creatinine 3.0, bicarb 17 Vitals/I&O/Wt Last Vital Signs Temp 97.7 F 12/07/23 11:42 Pulse 62 12/07/23 11:42 Resp 19 H 12/07/23 11:42 BP 149/49 12/07/23 11:42 Pulse Ox 100 12/07/23 11:42 O2 Del Method Room Air 12/07/23 11:42 O2 Flow Rate 3 12/06/23 05:00 12/06/23 12/07/23 12/07/23 22:59 06:59 14:59 Intake Total 354.167 / 1641.667 50 / 1691.667 480 / 480 Output Total 125 / 130 125 / 255 Balance 229.167 / 1511.667 -75 / 1436.667 480 / 480 Weight last 48 hrs Weight 83.915 kg Weight 83.915 kg Physical Exam 2 Narrative: Patient is very hard of hearing, sedated at this time On 2 L nasal cannula at this time Lungs mainly clear to auscultation no wheezes no rhonchi Pleasant and cooperative Right foot covered with dressing s/p surgery Data 12/07/23 04:15 12/07/23 04:15 Micro: Microbiology 12/06/23 13:25 Blood Culture - Preliminary Blood NEGATIVE TO DATE 12/06/23 13:25 Blood Culture - Preliminary Blood NEGATIVE TO DATE A&P Assessment and plan (1) Peripheral arterial disease: (2) Peripheral vascular disease of extremity: (3) CKD (chronic kidney disease): (4) Osteomyelitis of right foot: Qualifiers: Osteomyelitis type: chronic, with draining sinus Qualified Code(s): M 86.471 - Chronic osteomyelitis with draining sinus, right ankle and foot (5) Cellulitis and abscess of right lower extremity: (6) Necrosis of toe: (7) Amputation of toe: Qualifiers: Laterality: unspecified laterality Qualified Code(s): S98.139A - Complete traumatic amputation of one unspecified lesser toe, initial encounter (8) Gangrene of toe of right foot: (9) Sepsis: (10) Limb ischemia: Plan #Sepsis secondary to most likely osteomyelitis, evidence of endorgan damage, lactic acidosis, fever, leukocytosis criteria met on admission. #Enterococcus faecalis bacteremia 44 bottles positive #Dry gangrene s/p right foot TMA #Limb ischemia??Status post intervention #History of osteomyelitis and other toes requiring amputation #History of peripheral arterial disease, intervention performed in the past #Chronic wounds #EZEQUIEL on Chronic kidney disease #Diabetes mellitus type 2, insulin-dependent - Criteria met with endorgan damage, fever, leukocytosis high lactic acid -Patient underwent peripheral angiogram . Had balloon angioplasty to SFA. ? Will need tight blood glucose control ? Placed on vancomycin and Zosyn. Previous cultures have been positive for Staph aureus however with repeated infections he may have developed MRSA. ? Blood cultures obtained and antibiotic started in the ER. ? Patient is bacteremic. Will repeat blood cultures every 48 hours till clearance ? Podiatry notified of peripheral angiogram results. ? underwent R foot TMA today. pt to go back to OR for closure Friday 12/08 ? Will continue to monitor for fluid overload. ? Cardiology consulted. Appreciate recommendations ? Podiatry consulted. Appreciate recommendations. ?Patient may need long-term IV antibiotics after discharge secondary to bacteremia. =- repeat bcx pending - Cr. 3.0 . most nydia 11/08 due to contast induced nephropathy. Continue NS @ 125 cc/hr. Full Code Attestations 2 Medical Necessity Statement*: continue to hospitalize for tx of osteomyelitis Diagnoses Peripheral arterial disease I73.9 Peripheral vascular disease of extremity I73.9 CKD (chronic kidney disease) N18.9 Chronic osteomyelitis of right foot with draining sinus M86.471 Osteomyelitis type: chronic, with draining sinus Cellulitis and abscess of right lower extremity L03.115; L02.415 Necrosis of toe I96 Amputated toe, unspecified laterality S98.139A Laterality: unspecified laterality Gangrene of toe of right foot I96 Sepsis A41.9 Limb ischemia I99.8
[2023-12-07 16:52] LABS: Glucose Point of Care 284 mg/dL (70-110)
[2023-12-07] MEDS: insulin lispro 100 unit/1 mL SUBCUT ×2 (17:27→21:59)
[2023-12-07 21:36] LABS: Glucose Point of Care 234 mg/dL (70-110)
[2023-12-07] MEDS: insulin glargine 100 units/1 mL 30 UNIT SUBCUT (21:59)
[2023-12-08] VITALS (11 sets, daily range): BP systolic 125–145; BP diastolic 40–67; PULSE 56–64; RESP 10–21; TEMP 36.2–37.1; O2SAT 92–97; BMI 34.9
[2023-12-08] MEDS: piperacillin-tazobactam 3.375 GM in sodium chloride 0.9% (plus) 50 ML IV ×3 (02:09→18:01)
[2023-12-08] MEDS: sodium chloride 0.9% 1,000 ML 100 ML IV ×3 (04:27→23:38)
[2023-12-08 04:28] LABS: Basophils % 0.4 %; Eosinophils # 0.5 10^3/uL (0.0-0.8); Eosinophils % 4.9 %; Hematocrit 27.5 % (37-53); Lymphocytes # 0.9 10^3/uL (0.8-4.8); Lymphocytes % 8.8 %; Mean Corpuscular HGB Conc 29.8 g/dL (30-55); Mean Corpuscular Hemoglobin 26.8 pg (27-33); Mean Corpuscular Volume 89.9 fl (82-101); Mean Platelet Volume 10.4 fL (7.4-10.4); Monocytes # 1.2 10^3/uL (0.2-0.9); Monocytes % 12.3 %; Neutrophils % 73.2 %; Nucleated Red Blood Cells % 0 %; Platelet Count 162 10^3/cmm (157-399); Red Blood Count 3.06 10^6/uL (3.85-5.65); White Blood Count 9.69 10^3/uL (3.29-11.43)
[2023-12-08 04:46] LABS: Anion Gap 16.9 (5-19); Blood Urea Nitrogen 65 mg/dL (8-23); Calcium 7.8 mg/dL (8.5-10.5); Carbon Dioxide 17 mmol/L (22-29); Chloride 105 mmol/L (98-107); Creatinine Clr Calc Pharmacy 20.2625; Glucose 40 mg/dL (65-115); Osmolality Calculated 295 mOsm/kg (285-295); Potassium 3.9 mmol/L (3.5-5.1); Sodium 135 mmol/L (136-145)
[2023-12-08 06:40] LABS: Glucose Point of Care 57 mg/dL (70-110)
[2023-12-08 06:40] LABS: Glucose Point of Care 30 mg/dL (70-110)
[2023-12-08 07:11] LABS: Glucose Point of Care 57 mg/dL (70-110)
[2023-12-08] MEDS: dextrose 10% 250 ML 1000 ML IV (07:48)
[2023-12-08 07:56] LABS: Glucose Point of Care 79 mg/dL (70-110)
--- NOTE | 2023-12-08 08:27 | P.PN_ITS ---
Subjective 2 Subjective: seen this morning morning glucose low at 30, subsequent check 50-70 range amp of d50 given (D10 equivalent), d10 drip ordered, acchucheck q1H ordered lantus discontinued pt says he feels good today Vitals/I&O/Wt Last Vital Signs Temp 98.3 F 12/08/23 04:00 Pulse 60 12/08/23 06:00 Resp 16 12/08/23 04:00 BP 128/42 12/08/23 04:00 Pulse Ox 96 12/08/23 04:00 O2 Del Method Room Air 12/08/23 04:00 O2 Flow Rate 3 12/06/23 05:00 12/07/23 12/08/23 12/08/23 22:59 06:59 14:59 Intake Total 1290 / 1820 1050 / 2870 Output Total 525 / 525 125 / 650 Balance 765 / 1295 925 / 2220 Weight last 48 hrs Weight 110.314 kg Weight 83.915 kg Physical Exam 2 Narrative: Patient is very hard of hearing, awake alert oriented. On 2 L nasal cannula at this time Lungs mainly clear to auscultation no wheezes no rhonchi Pleasant and cooperative Right foot covered with dressing s/p surgery Data 12/08/23 03:52 12/08/23 03:52 Micro: Microbiology 12/06/23 13:25 Blood Culture - Preliminary Blood NEGATIVE TO DATE 12/06/23 13:25 Blood Culture - Preliminary Blood NEGATIVE TO DATE A&P Assessment and plan (1) Peripheral arterial disease: (2) Peripheral vascular disease of extremity: (3) CKD (chronic kidney disease): (4) Osteomyelitis of right foot: Qualifiers: Osteomyelitis type: chronic, with draining sinus Qualified Code(s): M 86.471 - Chronic osteomyelitis with draining sinus, right ankle and foot (5) Cellulitis and abscess of right lower extremity: (6) Necrosis of toe: (7) Amputation of toe: Qualifiers: Laterality: unspecified laterality Qualified Code(s): S98.139A - Complete traumatic amputation of one unspecified lesser toe, initial encounter (8) Gangrene of toe of right foot: (9) Sepsis: (10) Limb ischemia: Plan #Sepsis secondary to most likely osteomyelitis, evidence of endorgan damage, lactic acidosis, fever, leukocytosis criteria met on admission. #Enterococcus faecalis bacteremia 01/08 bottles positive #Dry gangrene s/p right foot TMA #Limb ischemia??Status post intervention #History of osteomyelitis and other toes requiring amputation #History of peripheral arterial disease, intervention performed in the past #Chronic wounds #EZEQUIEL on Chronic kidney disease #Diabetes mellitus type 2, insulin-dependent - Criteria met with endorgan damage, fever, leukocytosis high lactic acid -Patient underwent peripheral angiogram . Had balloon angioplasty to SFA. ? Will need tight blood glucose control ? Placed on vancomycin and Zosyn. Previous cultures have been positive for Staph aureus however with repeated infections he may have developed MRSA. ? Blood cultures obtained and antibiotic started in the ER. ? Patient is bacteremic. Will repeat blood cultures every 48 hours till clearance ? Podiatry notified of peripheral angiogram results. ? underwent R foot TMA today. pt to go back to OR for closure Friday 12/08 ? Will continue to monitor for fluid overload. ? Cardiology consulted. Appreciate recommendations ? Podiatry consulted. Appreciate recommendations. ?Patient may need long-term IV antibiotics after discharge secondary to bacteremia. =- repeat bcx pending - Cr. 3.5 . most likley 11/08 due to contast induced nephropathy. Continue NS @ 125 cc/hr. - Hold lantus - ordered d10 250 cc. - repeat blood glucose checks q1h till sugar stable - discussed with RN. patient asymptomatic Full Code PLan to go back to OR tomorrow for closure Attestations 2 Medical Necessity Statement*: continue to hospitalize for tx of osteomyelitis and gangrene Diagnoses Peripheral arterial disease I73.9 Peripheral vascular disease of extremity I73.9 CKD (chronic kidney disease) N18.9 Chronic osteomyelitis of right foot with draining sinus M86.471 Osteomyelitis type: chronic, with draining sinus Cellulitis and abscess of right lower extremity L03.115; L02.415 Necrosis of toe I96 Amputated toe, unspecified laterality S98.139A Laterality: unspecified laterality Gangrene of toe of right foot I96 Sepsis A41.9 Limb ischemia I99.8
[2023-12-08] MEDS: aspirin 81 mg EC Tablet PO (08:47)
[2023-12-08] MEDS: pantoprazole DR 40 mg Tablet PO (08:47)
[2023-12-08] MEDS: HYDROcodone-acetaminophen 5-325 mg Tablet 1 TAB PO ×3 (08:47→21:54)
[2023-12-08 09:02] LABS: Glucose Point of Care 181 mg/dL (70-110)
--- NOTE | 2023-12-08 09:39 | PM.CONSULT ---
Providers/Reason For Consult Consulting Physician/Specialty*: [facility]/Nephrology Reason for Consult*: Acute on CKD Attending Physician: Michelle Castelan MD Primary Care Provider: Rowdy Sheldon DO History of Present Illness History of Present Illness Surendra Roland is a 73 year old male Patient is a 73-year-old male with known peripheral vascular disease and diabetic foot ulcers, hypertension, diabetes admitted to the hospital on 12/04/2023 due to generalized weakness, shortness of breath and altered mental status. He was noted to have wet gangrene of the right foot at that time. He was febrile and also has an EZEQUIEL with a creatinine of 1.9 on presentation. During the course of the last few days patient did undergo transmetatarsal amputation of the right forefoot due to worsening gangrene also has received IV contrast with CT angiogram on 10/04/2023. Creatinine progressively gotten worse from 1.9 on presentation to 3.5 today. Nonoliguric. Also has metabolic acidosis and hyponatremia. Review of Systems Narrative: hard of hearing Other ros negative Medications/Allergies Home Medications Medication Instructions Recorded Confirmed Last Taken Type duloxetine 60 mg capsule,delayed 60 mg PO BEDTIME 02/22/20 12/04/23 12/03/23 History release (Cymbalta) empagliflozin 25 mg tablet 25 mg PO QAM 05/06/21 12/04/23 12/04/23 History (Jardiance) multivitamin 1 tab PO QAM 05/06/21 12/05/23 11/05/23 History cholecalciferol (vitamin D3) 25 25 mcg PO QAM 08/01/21 12/05/23 12/03/23 History mcg (1,000 unit) capsule flash glucose sensor (FreeStyle #1 ea 05/01/22 12/04/23 10/11/22 History Marisela 14 Day Sensor kit) sertraline 50 mg tablet 50 mg PO QAM 11/14/22 12/04/23 12/03/23 History Diabetic shoes with 3 pair of #1 ea 11/28/22 12/04/23 Unknown Rx inserts tamsulosin 0.4 mg capsule (Flomax) 0.8 mg (2 x 0.4 mg) PO BEDTIME #14 07/23/23 12/04/23 11/04/23 Rx caps potassium chloride 20 mEq 20 meq PO BID #20 tabs 10/03/23 12/04/23 12/03/23 Rx tablet,extended release Vit B-12 1,000 mcg PO DAILY 10/24/23 12/05/23 11/05/23 History carvedilol 3.125 mg tablet (Coreg) 3.125 mg PO BID 10/24/23 12/04/23 12/04/23 History levothyroxine 125 mcg tablet 125 mcg PO DAILY 10/24/23 12/04/23 12/03/23 History losartan 50 mg tablet 50 mg PO DAILY 10/24/23 12/04/23 12/04/23 History metolazone 5 mg tablet 5 mg PO DAILY 10/24/23 12/04/23 12/03/23 History ferrous sulfate 325 mg (65 mg 325 mg PO DAILY 11/06/23 12/05/23 Unknown History iron) tablet (Iron (ferrous sulfate)) aspirin 81 mg tablet,delayed 81 mg PO DAILY #90 tabs 11/07/23 12/05/23 12/03/23 Rx release clopidogrel 75 mg tablet 75 mg PO DAILY #90 tabs 11/07/23 12/04/23 12/03/23 Rx hydrocodone 5 mg-acetaminophen 325 1 tab PO Q6H PRN pain #14 tabs 12/02/23 12/05/23 Unknown Rx mg tablet bumetanide 1 mg tablet 3 mg PO DAILY 12/04/23 12/04/23 12/03/23 History insulin glargine 100 unit/mL (3 60 unit SUBCUT QPM 12/04/23 12/04/23 12/03/23 History mL) subcutaneous pen (Lantus Solostar U-100 Insulin) Allergies Allergy/AdvReac Type Severity Reaction Status Date / Time No Known Allergies Allergy Verified 12/03/23 09:34 Current Medications Generic Name Dose Route Start Last Admin Trade Name Freq PRN Reason Stop Dose Admin Acetaminophen 650 mg 12/04/23 17:51 12/04/23 23:34 Acetaminophen 325 Mg Tablet PO 650 mg Q6H PRN Administration Mild/Mod Pain Or Temp >/= 101 Hydrocodone Bitart/Acetaminophen 1 tab 12/05/23 02:42 12/08/23 08:47 Hydrocodone-Acetaminophen 5-325 Mg Tablet PO 1 tab Q6H PRN Administration pain Aspirin 81 mg 12/07/23 11:00 12/08/23 08:47 Aspirin 81 Mg Ec Tablet PO 81 mg DAILY JYOTI Administration Sodium Chloride 1,000 mls @ 100 mls/hr 12/04/23 18:00 12/08/23 04:27 Sodium Chloride 0.9% IV 100 mls/hr .Q10H JYOTI Administration Piperacillin Sod/Tazobactam 50 mls @ 12.5 mls/hr 12/05/23 01:00 12/08/23 08:48 Sod 3.375 gm/ Sodium Chloride IV 12.5 mls/hr Q8H JYOTI Administration Protocol As Directed Vancomycin/PEG/NADA/Lysine/Water 1,250 mg in 250 mls @ 250 mls/hr 12/05/23 18:00 12/06/23 18:33 Vancocin IV Infused Q24H JYOTI Infusion Insulin Glargine 30 unit 12/06/23 21:00 12/07/23 21:59 Insulin Glargine 100 Units/1 Ml SUBCUT 30 unit BEDTIME JYOTI Administration Insulin Human Lispro 0 unit 12/04/23 18:00 12/08/23 06:52 Insulin Lispro 100 Unit/1 Ml SUBCUT Not Given WM&BEDTIME JYOTI Protocol Morphine Sulfate 2 mg 12/07/23 02:29 12/07/23 19:52 Morphine 4 Mg/Ml Sdv 1 Ml IVP 2 mg Q4H PRN Administration SEVERE PAIN Ondansetron HCl 4 mg 12/04/23 17:51 12/04/23 19:41 Ondansetron 2 Mg/Ml Sdv 2 Ml IVP 4 mg Q8H PRN Administration vomiting, or N/V if npo Pantoprazole Sodium 40 mg 12/05/23 09:00 12/08/23 08:[address] 40 Mg Tablet PO 40 mg DAILY JYOTI Administration PFSH Acute PFSH: Medical History (Updated 12/07/23 @ 10:56 by Jaime Moore M.D) EZEQUIEL (acute kidney injury) Peripheral arterial disease Limb ischemia Dyslipidemia Osteomyelitis of foot Diabetic wet gangrene of the foot Diabetes EZEQUIEL (acute kidney injury) Non-pressure chronic ulcer of other part of left foot with fat layer exposed Cardiomyopathy Bradycardia Aortic valve disease 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 mellitus MSSA (methicillin susceptible Staphylococcus aureus) infection Gangrene PVD (peripheral vascular disease) 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 on 07/21/2021 Acute hypokalemia Osteomyelitis of toe of left foot History of nonmelanoma skin cancer Atrial fibrillation Paroxysmal Benign prostatic hyperplasia Chronic anticoagulation Xarelto Hypertensive urgency NSTEMI (non-ST elevated myocardial infarction) Congestive heart failure Anticoagulation adequate with anticoagulant therapy Xarelto Varicose vein of leg Obesity HTN (hypertension) Diabetes TIA (transient ischemic attack) Surgical History S/P cholecystectomy S/P cataract extraction S/P AVR (aortic valve replacement) Bioprosthetic, bovine Family History Father Diabetes Hypertension Grandfather Diabetes PATERNAL Hypertension PATERNAL Social History Smoking and tobacco/nicotine status: former use of tobacco/nicotine Alcohol intake: former Substance/Drug Use: never Marital status: / service: No Current occupational status: retired Current occupation: retired from [employer] Vitals/I&O/Wt Last Vital Signs Temp 98.3 F 12/08/23 04:00 Pulse 60 12/08/23 06:00 Resp 16 12/08/23 04:00 BP 128/42 12/08/23 04:00 Pulse Ox 96 12/08/23 04:00 O2 Del Method Room Air 12/08/23 04:00 O2 Flow Rate 3 12/06/23 05:00 12/07/23 12/08/23 12/08/23 22:59 06:59 14:59 Intake Total 1290 / 1820 1050 / 2870 Output Total 525 / 525 125 / 650 Balance 765 / 1295 925 / 2220 Weight last 48 hrs Weight 110.314 kg Weight 83.915 kg Physical Exam Narrative: awake , alert , no distress \ s1s2 rrr per report Lungs clear per report No edema Data 12/08/23 03:52 12/08/23 03:52 Micro: Microbiology 12/04/23 18:15 Blood Culture - Final Blood Enterococcus faecalis 12/06/23 13:25 Blood Culture - Preliminary Blood NEGATIVE TO DATE 12/06/23 13:25 Blood Culture - Preliminary Blood NEGATIVE TO DATE A&P Assessment and plan (1) EZEQUIEL (acute kidney injury): (2) CKD (chronic kidney disease): Plan 1. Acute on chronic kidney disease stage III: Baseline creatinine is in the mid 1 range now has an EZEQUIEL with a creatinine up to 3.5 likely from ATN in the setting of acute infection also contrast nephropathy. -Patient nonoliguric, has mild metabolic acidosis -Will start the patient on bicarbonate drip, no indication for dialysis currently, closely monitor renal function -If possible avoid further IV contrast studies and nephrotoxins 2. History of hypertension: Was taking losartan at home which is on hold also holding metolazone. Blood pressure is currently stable. 3. History of diabetes 4. Wet gangrene and transmetatarsal amputation of the right forefoot 5. Anemia:, Multifactorial secondary to blood loss and CKD, will order LAURO Patient evaluated using audiovisual cart. Time spent 40 minutes. Consult Attestations Medical Necessity Statement: Per medicine team Coding Level of Care Code Acute Code for [facility] Diagnoses EZEQUIEL (acute kidney injury) N17.9 CKD (chronic kidney disease) N18.9
--- NOTE | 2023-12-08 11:28 | P.PN_ITS ---
Subjective 2 Subjective: Patient seen bedside this a.m., denies any acute events overnight. 2 days status post right transmetatarsal amputation. Denies any pain to the right foot. Postoperative dressings are clean, dry and intact without strikethrough bleeding. Patient denies any subjective nausea, vomiting, fever, chills, shortness of breath or chest pain. Vitals/I&O/Wt Last Vital Signs Temp 97.1 F L 12/08/23 09:45 Pulse 59 L 12/08/23 09:49 Resp 10 L 12/08/23 09:49 BP 129/52 12/08/23 09:49 Pulse Ox 96 12/08/23 04:00 O2 Del Method Room Air 12/08/23 04:00 O2 Flow Rate 3 12/06/23 05:00 12/07/23 12/08/23 12/08/23 22:59 06:59 14:59 Intake Total 1290 / 1820 1050 / 2870 360 / 360 Output Total 525 / 525 125 / 650 Balance 765 / 1295 925 / 2220 360 / 360 Weight last 48 hrs Weight 243 lb 3.2 oz Weight 185 lb Physical Exam 2 Narrative: GENERAL: Patient is alert and oriented ?3 and in no acute distress. The following is a focused bilateral lower extremity exam. VASCULAR: Dorsalis pedis palpable bilaterally. Posterior tibial arteries palpable. Diminished pedal hair growth bilaterally. NEUROLOGICAL: Protective sensation diminished to light touch. DERMATOLOGICAL: Stable appearing postoperative changes to right foot transmetatarsal amputation site. No purulence and no erythema. MUSCULOSKELETAL: Status post right transmetatarsal amputation. Data 12/08/23 03:52 12/08/23 03:52 Micro: Microbiology 12/04/23 18:15 Blood Culture - Final Blood Enterococcus faecalis 12/06/23 13:25 Blood Culture - Preliminary Blood NEGATIVE TO DATE 12/06/23 13:25 Blood Culture - Preliminary Blood NEGATIVE TO DATE A&P Assessment and plan (1) Limb ischemia: (2) Peripheral arterial disease: (3) Gangrene of toe of right foot: Plan 73-year-old male with gangrene right foot, status post revascularization to the right lower extremity. 2 days status post right transmetatarsal potation secondary to gangrene. Date of operation December 06, 2023 Revascularization to the right lower extremity performed December 05, 2023 Patient doing well postoperatively. Plan for primary delayed closure this Saturday at noon Podiatry will continue to round Attestations 2 Medical Necessity Statement*: Gangrene right foot Coding Level of Care Code Acute Code for [facility] Fwd Diagnoses Limb ischemia I99.8 Peripheral arterial disease I73.9 Gangrene of toe of right foot I96
[2023-12-08 11:57] LABS: Glucose Point of Care 209 mg/dL (70-110)
--- NOTE | 2023-12-08 12:01 | PC.NURSE ---
dr galeas,dpm in and changed right foot drsg.stay sutures intact.mod amt dried bloody favian noted.plan is: close right tma wound on saturday per dr galeas.
[2023-12-08] MEDS: FUROsemide 10 mg/mL SDV 4mL 40 MG IVP (13:39)
--- NOTE | 2023-12-08 15:38 | P.PN_ITS ---
Subjective 2 Subjective: Patient feeling well. Creatinine still going up. Vitals/I&O/Wt Last Vital Signs Temp 97.1 F L 12/08/23 09:45 Pulse 61 12/08/23 12:15 Resp 18 12/08/23 12:15 BP 145/67 12/08/23 12:15 Pulse Ox 97 12/08/23 12:15 O2 Del Method Room Air 12/08/23 04:00 O2 Flow Rate 3 12/06/23 05:00 12/08/23 12/08/23 12/08/23 06:59 14:59 22:59 Intake Total 1050 / 2870 1818.333 / 1818.333 Output Total 125 / 650 400 / 400 150 / 550 Balance 925 / 2220 1418.333 / 1418.333 -150 / 1268.333 Weight last 48 hrs Weight 243 lb 3.2 oz Weight 185 lb Physical Exam 2 Narrative: GENERAL: Patient is alert, awake and oriented x3. [] NECK: No jugular vein distension. [] HEENT: No cyanosis. No icterus. No pallor. [] HEART: Regular S1 and S2. Grade 2/6 systolic murmur LUNGS: Clear to auscultate bilaterally. [] CENTRAL NERVOUS SYSTEM: Grossly nonfocal. [] EXTREMITIES: Pulses are not palpable Data 12/10/23 04:57 12/10/23 04:57 Micro: Microbiology 12/08/23 12:50 Blood Culture - Preliminary Blood SPECIMEN COLLECTED 12/08/23 12:50 Blood Culture - Preliminary Blood SPECIMEN COLLECTED 12/04/23 18:15 Blood Culture - Final Blood Enterococcus faecalis 12/06/23 13:25 Blood Culture - Preliminary Blood NEGATIVE TO DATE 12/06/23 13:25 Blood Culture - Preliminary Blood NEGATIVE TO DATE A&P Assessment and plan (1) Bacteremia due to Enterococcus: (2) Limb ischemia: (3) CKD (chronic kidney disease): (4) Dyslipidemia: (5) EZEQUIEL (acute kidney injury): Plan Creatinine contrinues to worsen. Continue IV fluids. Monitor renal function. Thank you for involving us with care of this patient. We will continue to follow. Please call with questions. Attestations 2 Medical Necessity Statement*: Care expected to cross 2 midnights. Coding Level of Care Code Acute Code for [facility] Diagnoses Bacteremia due to Enterococcus R78.81; B95.2 Limb ischemia I99.8 CKD (chronic kidney disease) N18.9 Dyslipidemia E78.5 EZEQUIEL (acute kidney injury) N17.9
[2023-12-08] MEDS: morphine 4 mg/mL SDV 1 mL 2 MG IVP ×2 (16:07→21:53)
[2023-12-08 16:38] LABS: Glucose Point of Care 286 mg/dL (70-110)
[2023-12-08] MEDS: insulin lispro 100 unit/1 mL SUBCUT (18:01)
[2023-12-08 19:03] LABS: Vancomycin Random 19.7 ug/mL (20.0-40.0)
[2023-12-08 20:59] LABS: Glucose Point of Care 209 mg/dL (70-110)
[2023-12-09] VITALS (11 sets, daily range): BP systolic 123–159; BP diastolic 36–70; PULSE 60–74; RESP 12–22; TEMP 36.1–36.6; O2SAT 90–99; BMI 34.6
[2023-12-09] MEDS: acetaminophen 325 mg Tablet 650 MG PO (00:19)
[2023-12-09] MEDS: piperacillin-tazobactam 3.375 GM in sodium chloride 0.9% (plus) 50 ML IV ×3 (00:43→16:56)
[2023-12-09] MEDS: morphine 4 mg/mL SDV 1 mL 2 MG IVP ×3 (02:20→22:49)
[2023-12-09 03:05] LABS: Glucose Point of Care 67 mg/dL (70-110)
[2023-12-09 03:05] LABS: Glucose Point of Care 67 mg/dL (70-110)
[2023-12-09 04:35] LABS: Glucose Point of Care 115 mg/dL (70-110)
[2023-12-09 05:18] LABS: Basophils % 0.4 %; Eosinophils # 0.5 10^3/uL (0.0-0.8); Eosinophils % 6.5 %; Hematocrit 24.2 % (37-53); Lymphocytes # 0.7 10^3/uL (0.8-4.8); Lymphocytes % 8.1 %; Mean Corpuscular Hemoglobin 27.5 pg (27-33); Mean Corpuscular Volume 88.6 fl (82-101); Mean Platelet Volume 9.8 fL (7.4-10.4); Monocytes # 0.9 10^3/uL (0.2-0.9); Monocytes % 10.7 %; Neutrophils # 5.94 10^3/uL (1.8-7.7); Neutrophils % 73.9 %; Nucleated Red Blood Cells % 0 %; Platelet Count 164 10^3/cmm (157-399); Red Blood Count 2.73 10^6/uL (3.85-5.65); Red Cell Distribution Width 20.4 % (12.1-15.1); White Blood Count 8.03 10^3/uL (3.29-11.43)
[2023-12-09 05:39] LABS: Blood Urea Nitrogen 62 mg/dL (8-23); Calcium 7.5 mg/dL (8.5-10.5); Carbon Dioxide 18 mmol/L (22-29); Chloride 104 mmol/L (98-107); Creatinine Clr Calc Pharmacy 23.7054; Glucose 91 mg/dL (65-115); Osmolality Calculated 293 mOsm/kg (285-295); Sodium 133 mmol/L (136-145)
[2023-12-09 06:44] LABS: Glucose Point of Care 80 mg/dL (70-110)
--- NOTE | 2023-12-09 09:35 | PM.PN ---
Subjective Subjective: denies any complaints Medications: Reviewed: Yes Vitals/I&O/Wt Last Vital Signs Temp 97.6 F 12/09/23 08:21 Pulse 73 12/09/23 08:21 Resp 18 12/09/23 08:21 BP 153/70 12/09/23 08:21 Pulse Ox 90 12/09/23 08:21 O2 Del Method Room Air 12/09/23 08:21 O2 Flow Rate 3 12/06/23 05:00 12/08/23 12/09/23 12/09/23 22:59 06:59 14:59 Intake Total 290 / 2108.333 1750 / 3858.333 Output Total 850 / 1250 375 / 1625 Balance -560 / 177.365 2707 / 2233.333 Weight last 48 hrs Weight 110.314 kg Physical Exam Narrative: awake , alert , no distress \ s1s2 rrr per report Lungs clear per report No edema Data 12/09/23 05:00 12/09/23 05:00 Micro: Microbiology 12/08/23 12:50 Blood Culture - Preliminary Blood SPECIMEN COLLECTED 12/08/23 12:50 Blood Culture - Preliminary Blood SPECIMEN COLLECTED 12/04/23 18:15 Blood Culture - Final Blood Enterococcus faecalis A&P Assessment and plan (1) EZEQUIEL (acute kidney injury): (2) CKD (chronic kidney disease): Plan 1. Acute on chronic kidney disease stage III: Baseline creatinine is in the mid 1 range now has an EZEQUIEL with a creatinine up to 3.5 likely from ATN in the setting of acute infection also contrast nephropathy. -Patient nonoliguric, has mild metabolic acidosis - on NS @ 75 cc/hr , will give PRN IV Lasix , no indication for dialysis currently, closely monitor renal function- cr stable -If possible avoid further IV contrast studies and nephrotoxins 2. History of hypertension: Was taking losartan at home which is on hold also holding metolazone. Blood pressure is currently stable. 3. History of diabetes 4. Wet gangrene and s/p transmetatarsal amputation of the right forefoot, for wound closure tomorrow 5. Anemia:, Multifactorial secondary to blood loss and CKD, will order LAURO Patient evaluated using audiovisual cart. Time spent 40 minutes. Attestations Medical Necessity Statement*: per medicine Coding Level of Care Code Acute Code for [facility] Diagnoses EZEQUIEL (acute kidney injury) N17.9 CKD (chronic kidney disease) N18.9
[2023-12-09 09:52] LABS: Iron 25 ug/dL (59-158); Thyroid Stimulating Hormone 46.46 uIU/mL (0.27-4.20); Total Iron Binding Capacity 208 mcg/dl; Unsaturated Iron Binding 183 ug/dL (112-347); Vitamin B12 1240 pg/mL (232-1245)
[2023-12-09] MEDS: pantoprazole DR 40 mg Tablet PO (09:54)
[2023-12-09] MEDS: aspirin 81 mg EC Tablet PO (09:54)
[2023-12-09] MEDS: carvedilol 3.125 mg Tablet PO ×2 (09:54→16:56)
[2023-12-09] MEDS: FUROsemide 10 mg/mL SDV 10mL 60 MG IVP (09:55)
[2023-12-09] MEDS: sodium chloride 0.9% 1,000 ML 100 ML IV (09:56)
--- NOTE | 2023-12-09 09:57 | P.PN_ITS ---
Subjective 2 Subjective: Patient seen bedside this morning, denies any acute events overnight. No pain at the right foot. Anticipating primary delayed closure tomorrow at noon. Vitals/I&O/Wt Last Vital Signs Temp 97.6 F 12/09/23 08:21 Pulse 73 12/09/23 08:21 Resp 18 12/09/23 08:21 BP 153/70 12/09/23 08:21 Pulse Ox 90 12/09/23 08:21 O2 Del Method Room Air 12/09/23 08:21 O2 Flow Rate 3 12/06/23 05:00 12/08/23 12/09/23 12/09/23 22:59 06:59 14:59 Intake Total 290 / 2108.333 1750 / 3858.333 1000 / 1000 Output Total 850 / 1250 375 / 1625 Balance -560 / 265.045 1770 / 2233.333 1000 / 1000 Weight last 48 hrs Weight 243 lb 3.2 oz Physical Exam 2 Narrative: GENERAL: Patient is alert and oriented ?3 and in no acute distress. The following is a focused bilateral lower extremity exam. VASCULAR: Dorsalis pedis palpable bilaterally. Posterior tibial arteries palpable. Diminished pedal hair growth bilaterally. NEUROLOGICAL: Protective sensation diminished to light touch. DERMATOLOGICAL: Stable appearing postoperative changes to right foot transmetatarsal amputation site. No purulence and no erythema. MUSCULOSKELETAL: Status post right transmetatarsal amputation. Left open for staged debridement and secondary closure. Data 12/09/23 05:00 12/09/23 05:00 Micro: Microbiology 12/08/23 12:50 Blood Culture - Preliminary Blood SPECIMEN COLLECTED 12/08/23 12:50 Blood Culture - Preliminary Blood SPECIMEN COLLECTED 12/04/23 18:15 Blood Culture - Final Blood Enterococcus faecalis A&P Assessment and plan (1) Limb ischemia: (2) Peripheral arterial disease: (3) Gangrene of toe of right foot: Plan 73-year-old male with gangrene right foot, status post revascularization to the right lower extremity. 2 days status post right transmetatarsal potation secondary to gangrene. Date of operation December 06, 2023 Revascularization to the right lower extremity performed December 05, 2023 Patient doing well postoperatively. Plan for primary delayed closure tomorrow Saturday at on Podiatry will continue to round Will be okay for discharge from podiatry standpoint after surgery tomorrow. No plans for PICC line from podiatry standpoint. Attestations 2 Medical Necessity Statement*: Gangrene right foot. Coding Level of Care Code Acute Code for [facility] Diagnoses Limb ischemia I99.8 Peripheral arterial disease I73.9 Gangrene of toe of right foot I96
--- NOTE | 2023-12-09 11:21 | PC.SOCIAL ---
IMM Updated Updated pt on IMM. No questions voiced. Provided pt a copy. Initialed, dated, & timed copy in chart.
[2023-12-09 12:04] LABS: Glucose Point of Care 161 mg/dL (70-110)
[2023-12-09 12:56] LABS: Free T4 Free Thyroxine 0.51 ng/dL (0.82-1.77); T3 Free 1.2 PG/ML (2.0-4.4)
[2023-12-09] MEDS: levothyroxine 125 mcg Tablet PO (13:25)
[2023-12-09] MEDS: vancomycin 1,250 MG/250 ML PIGGYBACK 250 MG IV (14:03)
[2023-12-09] MEDS: HYDROcodone-acetaminophen 5-325 mg Tablet 1 TAB PO ×2 (14:12→21:58)
--- NOTE | 2023-12-09 14:45 | P.PN_ITS ---
Subjective 2 Subjective: Hospital course, labs appreciated. Patient seen comfortably sitting at the edge of the bed. Denies any nausea, vomiting, headache. Has remained hemodynamically stable and afebrile. States breathing is fair. Medications: Reviewed: Yes Vitals/I&O/Wt Last Vital Signs Temp 97.9 F 12/09/23 10:44 Pulse 74 12/09/23 10:44 Resp 21 H 12/09/23 14:12 BP 153/70 12/09/23 10:44 Pulse Ox 94 12/09/23 14:12 O2 Del Method Room Air 12/09/23 08:21 O2 Flow Rate 3 12/06/23 05:00 12/08/23 12/09/23 12/09/23 22:59 06:59 14:59 Intake Total 290 / 2108.333 1750 / 3858.333 1000 / 1000 Output Total 850 / 1250 375 / 1625 1999 Balance -560 / 601.901 0017 / 2233.333 -1000 / -1000 Weight last 48 hrs Weight 110.314 kg Physical Exam 2 Narrative: General: No acute distress, AO x3, hard of hearing, on room air HEENT: PERRLA, pupils bilaterally equal and reactive Chest: Normal vesicular breath sounds, no added sounds, equal good air entry bilaterally CVS: S1-S2 regular, soft ejection systolic murmur at aortic region, no tachycardia, no gallops, no rubs Abdomen: Soft, nontender, no organomegaly, bowel sounds present Neuro: No focal deficits, no facial deformity, AO x3, Data 12/09/23 05:00 12/09/23 05:00 Micro: Microbiology 12/08/23 12:50 Blood Culture - Preliminary Blood NEGATIVE TO DATE 12/08/23 12:50 Blood Culture - Preliminary Blood NEGATIVE TO DATE 12/04/23 18:15 Blood Culture - Final Blood Enterococcus faecalis A&P Assessment and plan (1) Bacteremia due to Enterococcus: (2) Acute kidney injury superimposed on CKD: (3) Contrast-induced nephropathy: (4) Limb ischemia: (5) Cellulitis and abscess of right lower extremity: (6) Osteomyelitis of right foot: Qualifiers: Osteomyelitis type: chronic, with draining sinus Qualified Code(s): M 86.471 - Chronic osteomyelitis with draining sinus, right ankle and foot (7) Amputation of toe: Qualifiers: Laterality: unspecified laterality Qualified Code(s): S98.139A - Complete traumatic amputation of one unspecified lesser toe, initial encounter (8) S/P aortic valve replacement with bioprosthetic valve: (9) Sepsis: (10) CKD (chronic kidney disease): (11) Necrosis of toe: (12) Peripheral arterial disease: Plan #Sepsis secondary to most likely osteomyelitis, evidence of endorgan damage, lactic acidosis, fever, leukocytosis criteria met on admission. #Enterococcus faecalis bacteremia 4/4 bottles positive #Dry gangrene s/p right foot TMA #Limb ischemia??Status post intervention #History of osteomyelitis and other toes requiring amputation #History of peripheral arterial disease, intervention performed in the past #Chronic wounds #EZEQUIEL on Chronic kidney disease #Diabetes mellitus type 2, insulin-dependent Sepsis: Resolved. Enterococcus bacteremia: Repeat blood cultures from 12/07 so far negative. 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 Will plan to consult ID for further recommendation. Patient will most likely need 6 weeks of IV antibiotics. If repeat blood culture from 12/07 remains negative we will plan for PICC line placement. For now continue with IV vancomycin and Zosyn. Dry gangrene with necrosis of the toe: Post right foot TMA. Plan for delayed closure tomorrow. Wound care as per podiatry team. Appreciate recommendations. Peripheral arterial disease: Limb ischemia: Post peripheral angiography and angioplasty. Appreciate cardiology recommendations. Continue with baby aspirin 81 mg daily. Will plan to start Plavix once cleared by podiatry team postoperatively. Check lipid panel. Start on statins accordingly. EZEQUIEL on CKD: Most likely in setting of contrast-induced nephropathy. Avoid nephrotoxins. Appreciate nephrology recommendations. Continue with bicarb drip but will decrease the rate at 75 cc/h. Patient euvolemic currently. Diuretics as per nephrology team. Monitor renal functions daily for now. Patient does have history of systolic heart failure with EF of 45 to 50% with dilated LA and reduced RV function. Will monitor for fluid overload. History of hypothyroidism: Recheck TSH. Will restart levothyroxine and dose as per repeat TSH levels. Restart other home medications including sertraline at 50 mg daily, Cymbalta 60 mg nightly, Flomax 0.8 daily. Hypertension: Goal blood pressure less than 140/90 mmHg. Restart home dose of Coreg 3.125 mg twice daily. Uptitrate as for goal blood pressure of less than 140/90 mmHg. Holding off on home dose of losartan for now. Type 2 diabetes mellitus: A1c 9.6 recently. Hypoglycemic overnight. Hold off on Lantus. Continue with insulin sliding scale low-dose protocol. Most likely in setting of worsening renal functions. Discharge plan: Plan to discharge to SNF once patient is hemodynamically stable and afebrile. Will plan for PICC line placement for 6 weeks of IV antibiotic course prior to discharge as per ID recommendations. Attestations 2 Medical Necessity Statement*: Requires further hospitalization for management of enterococcal bacteremia in setting of dry gangrene and limb ischemia post amputation, contrast-induced nephropathy post peripheral angioplasty while safe discharge planning is sought Diagnoses Bacteremia due to Enterococcus R78.81; B95.2 Acute kidney injury superimposed on CKD N17.9; N18.9 Contrast-induced nephropathy N14.11; T50.8X5A Limb ischemia I99.8 Cellulitis and abscess of right lower extremity L03.115; L02.415 Chronic osteomyelitis of right foot with draining sinus M86.471 Osteomyelitis type: chronic, with draining sinus Amputated toe, unspecified laterality S98.139A Laterality: unspecified laterality S/P aortic valve replacement with bioprosthetic valve Z95.3 Sepsis A41.9 CKD (chronic kidney disease) N18.9 Necrosis of toe I96 Peripheral arterial disease I73.9
[2023-12-09 17:06] LABS: Glucose Point of Care 108 mg/dL (70-110)
[2023-12-09] MEDS: insulin lispro 100 unit/1 mL SUBCUT (21:57)
[2023-12-09] MEDS: duloxetine 60 mg Capsule PO (21:58)
[2023-12-09] MEDS: tamsulosin 0.4 mg Capsule 0.800000000000000044 MG PO (21:58)
[2023-12-10] VITALS (15 sets, daily range): BP systolic 100–165; BP diastolic 40–58; PULSE 47–86; RESP 6–21; TEMP 36.1–36.8; O2SAT 92–99; BMI 34.6
[2023-12-10] MEDS: sodium chloride 0.9% 1,000 ML 100 ML IV (00:48)
[2023-12-10] MEDS: piperacillin-tazobactam 3.375 GM in sodium chloride 0.9% (plus) 50 ML IV (00:48)
[2023-12-10 00:53] LABS: Glucose Point of Care 180 mg/dL (70-110)
--- NOTE | 2023-12-10 04:18 | P.CONIM_ITS ---
Providers/Reason For Consult 2 Consulting Physician/Specialty*: Callie Claros MD/ Infectious Disease Reason for Consult*: Enterococcus bacteremia Requesting Physician: Cralton Simpson MD Attending Physician: Carlton Simpson MD Primary Care Provider: Rowdy Sheldon DO History of Present Illness History of Present Illness Surendra Roland is a 73 year old male past medical history of diabetes mellitus, dyslipidemia, hypertension, peripheral arterial disease requiring angioplasty, status post aortic valve replacement which is bioprosthetic, atrial fibrillation, h/o multiple episodes of osteomyelitis necessitating varying levels of amputation detailed below in past medical history. Is currently admitted to the hospital December 04, 2022 after presenting with sepsis and gangrene of the right foot. He was found to have critical limb ischemia of the right lower extremity and underwent a peripheral angiogram. Right SFA was found to be totally occluded from ostial to mid segment with weak collaterals. He underwent successful revascularization with balloon angioplasty with excellent flow. Anterior tibial artery noted to be occluded. Posterior tibial artery reconstitutes via collaterals. Currently on dual antiplatelet therapy. On December 25, 2023 he underwent a transmetatarsal amputation for source control. Per review of op note from podiatry gangrenous changes were noted in the right forefoot especially at the fifth toe with a black eschar. Devitalized tissue was removed. Patient tolerated the procedure and is currently planned for a primary delayed closure later today. Culture data not available from the OR. Blood culture from admission returned positive for Enterococcus faecalis. Notable past history: - h/o acute gangrene and osteomyelitis of right foot/4th toe in 05/2021, s/p amputation with clear margins at the time, wound complicated by poor wound healing related to peripheral vascular disease, diabetes mellitus, s/p peripheral intervention in 07/2021. CX with MSSA. - right foot cellulitis and osteomyelitis involving 2nd and third metatarsal bones 09/2021 s/p I&D. CX with MSSA. Treated with ceftraixone. susequent Debridement of bone in 12/2021, 02/2022 along with HBO rx. on rx with doxycycline over many months. Eventually wound healed by 07/2022. - 08/2022 severe low gradient aortic valve stenosis in previously placed bioprosthetic valve. DAGMAR in Oct 2022 eventually showed thickened bioprosthetic valve which was functioning well. - 11/2022: Wounds to right great toes and left 5th toes which healed uneventfully. - 06/2023: new wound left 4th toe which worsened, found to have Gangrene left foot fourth digit with secondary abscess s/p Left foot fourth and fifth digit amputation and I&D. OR cx with grp B strep. Treated with CTX 2 g daily. Wounds did not heal satisafcatorily. Underwent peripheral angiogram which demonstrated severe left external iliac artery stenosis that underwent successful revascularization with balloon angioplasty. Patient also had totally occluded mid SFA stenosis that underwent successful revascularization with balloon angioplasty. Below the knee all 3 vessels are totally occluded with collateral blood supply. 11/27/23: progression to gangrene on right foot. Planned amputation however awaiting vascular intervention first - presented to ER with sepsis on 12/04. Review of Systems 2 General: Reports: 10 or more systems reviewed and unremarkable except in HPI and below Const: Denies: fever(s), chills or body aches Eyes: Denies: change in vision, blurry vision or photophobia ENMT: Reports: hoarseness; Denies: throat pain, enlarged tonsils, odynophagia or nasal congestion Card: Denies: chest pain, palpitations, irregular heart rhythm, edema, swelling of feet/ankles, lightheadedness, pre-syncope, dyspnea on exertion or orthopnea Resp: Denies: dyspnea, productive cough, non-productive cough, wheezing, stridor, pain on inspiration, change in phlegm color, hemoptysis or chest congestion GI: Denies: abdominal pain, nausea, vomiting, hematemesis, coffee ground emesis, dysphagia, heartburn, diarrhea, constipation, GI cramping, change in stool character, hematochezia or melena : Denies: flank pain, dysuria, urinary frequency, urinary urgency, urinary hesitancy or hematuria Musc: Denies: neck pain, back pain, extremity pain, joint swelling, joint warmth or deformity Neuro: Denies: headache(s), numbness in extremities, weakness in extremities, sensory changes, difficulty walking, frequent falls, dizziness, vertigo, behavioral changes, Slurred speech present or seizure-like activity Psych: Denies: anxiety, depression, suicidal ideation or homicidal ideation Endo: Denies: polyuria, polydipsia, tired all the time, cold intolerance or hot flashes Lit/Lymph: Denies: easy bruising or easy bleeding Medications/Allergies Home Medications Medication Instructions Recorded Confirmed Last Taken Type duloxetine 60 mg capsule,delayed 60 mg PO BEDTIME 02/22/20 12/04/23 12/03/23 History release (Cymbalta) empagliflozin 25 mg tablet 25 mg PO QAM 05/06/21 12/04/23 12/04/23 History (Jardiance) multivitamin 1 tab PO QAM 05/06/21 12/05/23 11/05/23 History cholecalciferol (vitamin D3) 25 25 mcg PO QAM 08/01/21 12/05/23 12/03/23 History mcg (1,000 unit) capsule flash glucose sensor (FreeStyle #1 ea 05/01/22 12/04/23 10/11/22 History Marisela 14 Day Sensor kit) sertraline 50 mg tablet 50 mg PO QAM 11/14/22 12/04/23 12/03/23 History Diabetic shoes with 3 pair of #1 ea 11/28/22 12/04/23 Unknown Rx inserts tamsulosin 0.4 mg capsule (Flomax) 0.8 mg (2 x 0.4 mg) PO BEDTIME #14 07/23/23 12/04/23 11/04/23 Rx caps potassium chloride 20 mEq 20 meq PO BID #20 tabs 10/03/23 12/04/23 12/03/23 Rx tablet,extended release Vit B-12 1,000 mcg PO DAILY 10/24/23 12/05/23 11/05/23 History carvedilol 3.125 mg tablet (Coreg) 3.125 mg PO BID 10/24/23 12/04/23 12/04/23 History levothyroxine 125 mcg tablet 125 mcg PO DAILY 10/24/23 12/04/23 12/03/23 History losartan 50 mg tablet 50 mg PO DAILY 10/24/23 12/04/23 12/04/23 History metolazone 5 mg tablet 5 mg PO DAILY 10/24/23 12/04/23 12/03/23 History ferrous sulfate 325 mg (65 mg 325 mg PO DAILY 11/06/23 12/05/23 Unknown History iron) tablet (Iron (ferrous sulfate)) aspirin 81 mg tablet,delayed 81 mg PO DAILY #90 tabs 11/07/23 12/05/23 12/03/23 Rx release clopidogrel 75 mg tablet 75 mg PO DAILY #90 tabs 11/07/23 12/04/23 12/03/23 Rx hydrocodone 5 mg-acetaminophen 325 1 tab PO Q6H PRN pain #14 tabs 12/02/23 12/05/23 Unknown Rx mg tablet bumetanide 1 mg tablet 3 mg PO DAILY 12/04/23 12/04/23 12/03/23 History insulin glargine 100 unit/mL (3 60 unit SUBCUT QPM 12/04/23 12/04/23 12/03/23 History mL) subcutaneous pen (Lantus Solostar U-100 Insulin) Allergies Allergy/AdvReac Type Severity Reaction Status Date / Time No Known Allergies Allergy Verified 12/03/23 09:34 Current Medications Generic Name Dose Route Start Last Admin Trade Name Freq PRN Reason Stop Dose Admin Acetaminophen 650 mg 12/04/23 17:51 12/09/23 00:19 Acetaminophen 325 Mg Tablet PO 650 mg Q6H PRN Administration Mild/Mod Pain Or Temp >/= 101 Hydrocodone Bitart/Acetaminophen 1 tab 12/05/23 02:42 12/09/23 21:58 Hydrocodone-Acetaminophen 5-325 Mg Tablet PO 1 tab Q6H PRN Administration pain Aspirin 81 mg 12/07/23 11:00 12/09/23 09:54 Aspirin 81 Mg Ec Tablet PO 81 mg DAILY JYOTI Administration Carvedilol 3.125 mg 12/09/23 09:05 12/09/23 16:56 Carvedilol 3.125 Mg Tablet PO 3.125 mg BID JYOTI Administration Duloxetine HCl 60 mg 12/09/23 21:00 12/09/23 21:58 Duloxetine 60 Mg Capsule PO 60 mg BEDTIME JYOTI Administration Sodium Chloride 1,000 mls @ 75 mls/hr 12/04/23 18:00 12/10/23 00:48 Sodium Chloride 0.9% IV 100 mls/hr .[id number] JYOTI Administration Piperacillin Sod/Tazobactam 50 mls @ 12.5 mls/hr 12/05/23 01:00 12/10/23 00:48 Sod 3.375 gm/ Sodium Chloride IV 12.5 mls/hr Q8H JYOTI Administration Protocol As Directed Vancomycin/PEG/NADA/Lysine/Water 1,250 mg in 250 mls @ 250 mls/hr 12/09/23 12:00 12/09/23 15:55 Vancocin IV Infused Q48H JYOTI Infusion Insulin Glargine 30 unit 12/06/23 21:00 12/07/23 21:59 Insulin Glargine 100 Units/1 Ml SUBCUT 30 unit BEDTIME JYOTI Administration Insulin Human Lispro 0 unit 12/04/23 18:00 12/09/23 21:57 Insulin Lispro 100 Unit/1 Ml SUBCUT 4 unit WM&BEDTIME JYOTI Administration Protocol Levothyroxine Sodium 125 mcg 12/09/23 12:40 12/09/23 13:25 Levothyroxine 125 Mcg Tablet PO 125 mcg DAILY JYOTI Administration Morphine Sulfate 2 mg 12/07/23 02:29 12/09/23 22:49 Morphine 4 Mg/Ml Sdv 1 Ml IVP 2 mg Q4H PRN Administration SEVERE PAIN Ondansetron HCl 4 mg 12/04/23 17:51 12/04/23 19:41 Ondansetron 2 Mg/Ml Sdv 2 Ml IVP 4 mg Q8H PRN Administration vomiting, or N/V if npo Pantoprazole Sodium 40 mg 12/05/23 09:00 12/09/23 09:[address] 40 Mg Tablet PO 40 mg DAILY JYOTI Administration Tamsulosin HCl 0.8 mg 12/09/23 21:00 12/09/23 21:58 Tamsulosin 0.4 Mg Capsule PO 0.8 mg BEDTIME JYOTI Administration PFSH Acute 2 PFSH: Medical History EZEQUIEL (acute kidney injury) Peripheral arterial disease Limb ischemia Dyslipidemia Osteomyelitis of foot Diabetic wet gangrene of the foot Diabetes EZEQUIEL (acute kidney injury) Non-pressure chronic ulcer of other part of left foot with fat layer exposed Cardiomyopathy Bradycardia Aortic valve disease 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 mellitus MSSA (methicillin susceptible Staphylococcus aureus) infection Gangrene PVD (peripheral vascular disease) 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 on 07/21/2021 Acute hypokalemia Osteomyelitis of toe of left foot History of nonmelanoma skin cancer Atrial fibrillation Paroxysmal Benign prostatic hyperplasia Chronic anticoagulation Xarelto Hypertensive urgency NSTEMI (non-ST elevated myocardial infarction) Congestive heart failure Anticoagulation adequate with anticoagulant therapy Xarelto Varicose vein of leg Obesity HTN (hypertension) Diabetes TIA (transient ischemic attack) Surgical History S/P aortic valve replacement with bioprosthetic valve S/P cholecystectomy S/P cataract extraction S/P AVR (aortic valve replacement) Bioprosthetic, bovine Family History Father Diabetes Hypertension Grandfather Diabetes PATERNAL Hypertension PATERNAL Social History Smoking and tobacco/nicotine status: former use of tobacco/nicotine Alcohol intake: former Substance/Drug Use: never Marital status: / service: No Current occupational status: retired Current occupation: retired from [employer] Vitals/I&O/Wt Last Vital Signs Temp 98.3 F 12/10/23 00:06 Pulse 59 L 12/10/23 00:06 Resp 16 12/10/23 00:06 BP 137/53 12/10/23 00:06 Pulse Ox 96 12/10/23 00:06 O2 Del Method Room Air 12/10/23 00:06 O2 Flow Rate 3 12/06/23 05:00 12/09/23 12/09/23 12/10/23 14:59 22:59 06:59 Intake Total 1000 / 1000 1300 / 2300 50 / 2350 Output Total 2000 / 2000 900 / 2900 550 / 3450 Balance -1000 / -1000 400 / -600 -500 / -1100 Weight last 48 hrs Weight 109.486 kg Weight 110.314 kg Physical Exam 2 Narrative: General: No acute distress, AO x3 HEENT: PERRLA, pupils bilaterally equal and reactive, pallors not present Chest: Normal vesicular breath sounds, no added sounds, equal good air entry bilaterally CVS: S1-S2 regular, no murmurs, no tachycardia, no gallops, no rubs Abdomen: Soft, nontender, no organomegaly, bowel sounds present Neuro: No focal deficits, no facial deformity, AO x3, power 5/5 in all limbs Data 12/09/23 05:00 12/09/23 05:00 Micro: Microbiology 12/04/23 18:12 Blood Culture - Final Blood Enterococcus faecalis E faecalis M.I.C. RX --------- ------ * Ampicillin <=2 S * Linezolid 2 S * Penicillin 8 S Vancomycin 2 S Gentamicin Synergy Screen >500 R Daptomycin <=0.5 S 12/08/23 12:50 Blood Culture - Preliminary Blood NEGATIVE TO DATE 12/08/23 12:50 Blood Culture - Preliminary Blood NEGATIVE TO DATE Spec #: [id number] Dariel: 12/06/23 Status: RES Req #: [id number] Recd: 12/06/[address]: Michelle Castelan MD Src: Blood SpDesc: Ordered: Bcult Procedure Result Verified Site Blood Culture Preliminary 12/07/23 NEGATIVE TO DATE Blood Culture Preliminary (changed) 12/06/23 SPECIMEN COLLECTED A&P Assessment and plan (1) Bacteremia due to Enterococcus: (2) Limb ischemia: (3) Cellulitis and abscess of right lower extremity: Plan Mohsen Kimble is a 73-year-old male with a past medical history of multiple episodes of osteomyelitis involving his feet, complicated by peripheral vascular disease for which he has had multiple interventions in the past, however continues to have poor collateral flow infrapopliteal. Currently admitted for critical limb ischemia, gangrene, complicated skin and soft tissue infection leading to sepsis and Enterococcus bacteremia. Blood culture positive from admission on 12/04/2023, clear on December 06, 2023. He is status post peripheral angiogram and intervention on 12/05/2023. Status post transmetatarsal amputation clear margin at amputation site on December 06, 2023. Previously has a history of complicated nonhealing wounds, history of osteomyelitis as noted above Currently source of bacteremia appears to be complicated skin and soft tissue infection. Afebrile since December 06, 2023 after going amputation. Leukocytosis resolved. Of note patient has a history of bioprosthetic aortic valve. Currently low suspicion for endocarditis given quick clearance of blood cultures, no peripherals stigmata of endocarditis, source control by way of transmetatarsal amputation, and likely alternate explanation for bacteremia being complicated skin and soft tissue infection. Enterococcus faecalis is amp susceptible. Plan: Discontinue piperacillin/tazobactam and vancomycin. Narrow antibiotic coverage to Unasyn 3 g IV every 12 hours, renally dose adjusted for creatinine clearance of 24. Recommend to treat patient for 14 days from clearance of blood cultures and transmetatarsal amputation (12/05-12/19) While on above antibiotic treatment obtain weekly CBC and CMP and fax to ID clinic for review. PICC line to facilitate above f/up ID clinic in 2 weeks Coding Level of Care Code Acute Code for Chg Fwd Moderate MDM includes number and complexity of problems actively addressed during encounter, amount and/or complexity of data reviewed/ordered and described risk of complication, morbidity or mortality of management as documented Diagnoses Bacteremia due to Enterococcus R78.81; B95.2 Limb ischemia I99.8 Cellulitis and abscess of right lower extremity L03.115; L02.415
[2023-12-10 05:14] LABS: Basophils # 0.1 10^3/uL (0.0-0.1); Basophils % 0.6 %; Eosinophils # 0.7 10^3/uL (0.0-0.8); Eosinophils % 8.4 %; Hematocrit 26.5 % (37-53); Lymphocytes # 0.6 10^3/uL (0.8-4.8); Lymphocytes % 7.4 %; Mean Corpuscular HGB Conc 30.6 g/dL (30-55); Mean Corpuscular Hemoglobin 26.9 pg (27-33); Mean Platelet Volume 10.3 fL (7.4-10.4); Monocytes # 0.8 10^3/uL (0.2-0.9); Monocytes % 9.7 %; Neutrophils # 6.06 10^3/uL (1.8-7.7); Neutrophils % 73.5 %; Nucleated Red Blood Cells % 0 %; Platelet Count 200 10^3/cmm (157-399); Red Blood Count 3.01 10^6/uL (3.85-5.65); Red Cell Distribution Width 20.4 % (12.1-15.1); White Blood Count 8.24 10^3/uL (3.29-11.43)
[2023-12-10 05:41] LABS: Alanine Aminotransferase 29 U/L (0-41); Albumin Level 2.9 g/dL (3.5-5.2); Alkaline Phosphatase 95 U/L (40-130); Anion Gap 19.1 (5-19); Aspartate Amino Transferase 20 U/L (0-40); Blood Urea Nitrogen 54 mg/dL (8-23); Carbon Dioxide 18 mmol/L (22-29); Chloride 107 mmol/L (98-107); Globulin 3.1 g/dL (1.3-4.6); Glucose 96 mg/dL (65-115); Osmolality Calculated 305 mOsm/kg (285-295); Potassium 4.1 mmol/L (3.5-5.1); Sodium 140 mmol/L (136-145); Total Bilirubin 0.6 mg/dL (0.15-1.2)
[2023-12-10 05:55] LABS: Chol HDL Ratio 4.03 mg/dL (1.0-5.00); Cholesterol 133 mg/dL (0-200); HDL Cholesterol 33 mg/dL (60-100); LDL Cholesterol Calculated 80 mg/dL (50-129); Magnesium 2.3 mg/dL (1.7-2.3); Triglycerides 98 mg/dL (0-150); VLDL Cholestrol Calculation 20 mg/dL (0-30)
[2023-12-10] MEDS: sertraline 50 mg Tablet PO (06:19)
[2023-12-10 06:22] LABS: Glucose Point of Care 112 mg/dL (70-110)
[2023-12-10] MEDS: aspirin 81 mg EC Tablet PO (08:14)
[2023-12-10] MEDS: carvedilol 3.125 mg Tablet PO ×2 (08:14→18:05)
[2023-12-10] MEDS: pantoprazole DR 40 mg Tablet PO (08:14)
[2023-12-10] MEDS: levothyroxine 125 mcg Tablet PO (08:14)
[2023-12-10] MEDS: ampicillin-sulbactam 3 GM in sodium chloride 0.9% (plus) 50 ML IV ×2 (08:24→22:10)
--- NOTE | 2023-12-10 08:38 | W.PM.OPSUD ---
Surgery/Procedure H&P Update DATE OF PROCEDURE: December 10, 2023 DATE H&P PERFORMED: 12/05/23 H&P UPDATE INFORMATION: I have reviewed H&P completed within last 30 days, I have examined patient prior to procedure, No changes to prior documentation and H&P is in [facility] EMR on date indicated PREOP DIAGNOSIS: Critical limb ischemia/gangrene of right foot. PLANNED PROCEDURE: Operation Date: 12/05/23 10:10 Proposed Procedures p Peripheral Intervention(Not Applicable) - Jaime Moore M.D Operation Date: 12/06/23 07:10 Proposed Procedures p Right transmetatarsal amputation(Right) - Garrick Duggan DPM Operation Date: 12/10/23 12:00 Proposed Procedures p Delayed Wound Closure(Right) - Garrick Duggan DPM
--- NOTE | 2023-12-10 09:17 | P.PN_ITS ---
Subjective 2 Subjective: Patient is stable. no chest pain. Renal function is improving. Vitals/I&O/Wt Last Vital Signs Temp 97.9 F 12/10/23 07:24 Pulse 57 L 12/10/23 07:24 Resp 16 12/10/23 07:24 BP 141/56 12/10/23 07:24 Pulse Ox 99 12/10/23 07:24 O2 Del Method Room Air 12/10/23 07:24 O2 Flow Rate 3 12/06/23 05:00 12/09/23 12/10/23 12/10/23 22:59 06:59 14:59 Intake Total 1300 / 2300 100 / 2400 110 / 110 Output Total 900 / 2900 950 / 3850 Balance 400 / -600 -850 / -1450 110 / 110 Weight last 48 hrs Weight 241 lb 6 oz Weight 241 lb 6 oz Physical Exam 2 Narrative: GENERAL: Patient is alert, awake and oriented x3. [] NECK: No jugular vein distension. [] HEENT: No cyanosis. No icterus. No pallor. [] HEART: Regular S1 and S2. Grade 2/6 systolic murmur LUNGS: Clear to auscultate bilaterally. [] CENTRAL NERVOUS SYSTEM: Grossly nonfocal. [] EXTREMITIES: Dressing applied to right lower extremity. Data 12/11/23 04:18 12/11/23 04:18 Micro: Microbiology 12/04/23 18:12 Blood Culture - Final Blood Enterococcus faecalis 12/08/23 12:50 Blood Culture - Preliminary Blood NEGATIVE TO DATE 12/08/23 12:50 Blood Culture - Preliminary Blood NEGATIVE TO DATE A&P Assessment and plan (1) Bacteremia due to Enterococcus: (2) Limb ischemia: (3) CKD (chronic kidney disease): (4) Dyslipidemia: (5) EZEQUIEL (acute kidney injury): Plan Creatinine has stabilized. IV fluids. monitor renal function. Antibiotics per ID. Thank you for involving us with care of this patient. We will continue to follow. Please call with questions. Attestations 2 Medical Necessity Statement*: Care expected to cross 2 midnights. Coding Level of Care Code Acute Code for [facility] Fwd Diagnoses Bacteremia due to Enterococcus R78.81; B95.2 Limb ischemia I99.8 CKD (chronic kidney disease) N18.9 Dyslipidemia E78.5 EZEQUIEL (acute kidney injury) N17.9
[2023-12-10 10:02] LABS: Folate Level > 20.0 ng/mL (4.5-32.2)
--- NOTE | 2023-12-10 11:00 | PM.PN ---
Subjective Subjective: no new complaints Medications: Reviewed: Yes Vitals/I&O/Wt Last Vital Signs Temp 97.9 F 12/10/23 07:24 Pulse 57 L 12/10/23 07:24 Resp 16 12/10/23 07:24 BP 141/56 12/10/23 07:24 Pulse Ox 99 12/10/23 07:24 O2 Del Method Room Air 12/10/23 07:24 O2 Flow Rate 3 12/06/23 05:00 12/09/23 12/10/23 12/10/23 22:59 06:59 14:59 Intake Total 1300 / 2300 100 / 2400 963.333 / 963.333 Output Total 900 / 2900 950 / 3850 Balance 400 / -600 -850 / -1450 963.333 / 963.333 Weight last 48 hrs Weight 109.486 kg Weight 109.486 kg Physical Exam Narrative: awake , alert , no distress \ s1s2 rrr per report Lungs clear per report No edema Data 12/10/23 04:57 12/10/23 04:57 Micro: Microbiology 12/04/23 18:12 Blood Culture - Final Blood Enterococcus faecalis 12/08/23 12:50 Blood Culture - Preliminary Blood NEGATIVE TO DATE 12/08/23 12:50 Blood Culture - Preliminary Blood NEGATIVE TO DATE A&P Assessment and plan (1) EZEQUIEL (acute kidney injury): (2) CKD (chronic kidney disease): Plan 1. Acute on chronic kidney disease stage III: Baseline creatinine is in the mid 1 range now has an EZEQUIEL with a creatinine up to 3.5 likely from ATN in the setting of acute infection also contrast nephropathy. -Patient nonoliguric, has mild metabolic acidosis - on NS @ 75 cc/hr , will give PRN IV Lasix , no indication for dialysis currently, closely monitor renal function- cr stable -If possible avoid further IV contrast studies and nephrotoxins 2. History of hypertension: Was taking losartan at home which is on hold also holding metolazone. Blood pressure is currently stable. 3. History of diabetes 4. Wet gangrene and s/p transmetatarsal amputation of the right forefoot, for wound closure tomorrow 5. Anemia:, Multifactorial secondary to blood loss and CKD, will order LAURO Patient evaluated using audiovisual cart. Time spent 20 minutes. Attestations Medical Necessity Statement*: per [facility] Coding Level of Care Code Acute Code for Chg Fwd Diagnoses EZEQUIEL (acute kidney injury) N17.9 CKD (chronic kidney disease) N18.9
--- NOTE | 2023-12-10 11:04 | ANES.PREANE2 ---
Pre-Anesthetic Assessment Height/Weight: Height 1.78 m Weight 109.486 kg Temp Pulse Resp BP Pulse Ox O2 Del Method O2 Flow Rate 97.9 F 57 L 16 141/56 99 Room Air 3 12/10/23 07:24 12/10/23 07:24 12/10/23 07:24 12/10/23 07:24 12/10/23 07:24 12/10/23 07:24 12/06/23 05:00 Preop Diagnosis: Critical limb ischemia/gangrene of right foot. Operation Date: 12/05/23 10:10 Proposed Procedures p Peripheral Intervention(Not Applicable) - Jaime Moore M.D Operation Date: 12/06/23 07:10 Proposed Procedures p Right transmetatarsal amputation(Right) - Garrick Duggan DPM Operation Date: 12/10/23 12:00 Proposed Procedures p Delayed Wound Closure(Right) - Garrick Duggan DPM Last intake: Intake Last Liquid Date 12/10/23 Last Liquid Time 08:15 Last Solid Date 12/09/23 Last Solid Time 18:00 Exam alert, oriented x 3, clear to auscultation bilaterally and regular rate & rhythm Airway Submandibular: within normal limits Cervical ROM: within normal limits Mallampati: Class I CV/HEM CONCLUSIONS LV systolic function is mildly reduced with EF of 45-50% RV function is mildly reduced Left atrial dilation Mild mitral regurgitation Bioprosthetic aortic valve. Mild to moderate aortic regurgitation. Moderate aortic stenosis with aortic valve area 1.1 cm2. Mean gradient across aortic valve of 21 mmHg. DVI is 0.26 Mild pulmonic regurgitation. Mild tricuspid regurgitation Mildly dilated ascending aorta Compared to prior echocardiogram from 08/2022, no significant changes are seen Chronic Renal Insufficiency Metabolic Diabetes Mellitus Anesthetic Plan ASA status: 3 Anesthesia: MAC Risk of > 500 ml blood loss (7ml/kg in children): No Medications/Allergies Home Medications Medication Instructions Recorded Confirmed Last Taken Type duloxetine 60 mg capsule,delayed 60 mg PO BEDTIME 02/22/20 12/04/23 12/03/23 History release (Cymbalta) empagliflozin 25 mg tablet 25 mg PO QAM 05/06/21 12/04/23 12/04/23 History (Jardiance) multivitamin 1 tab PO QAM 05/06/21 12/05/23 11/05/23 History cholecalciferol (vitamin D3) 25 25 mcg PO QAM 08/01/21 12/05/23 12/03/23 History mcg (1,000 unit) capsule flash glucose sensor (FreeStyle #1 ea 05/01/22 12/04/23 10/11/22 History Marisela 14 Day Sensor kit) sertraline 50 mg tablet 50 mg PO QAM 11/14/22 12/04/23 12/03/23 History Diabetic shoes with 3 pair of #1 ea 11/28/22 12/04/23 Unknown Rx inserts tamsulosin 0.4 mg capsule (Flomax) 0.8 mg (2 x 0.4 mg) PO BEDTIME #14 07/23/23 12/04/23 11/04/23 Rx caps potassium chloride 20 mEq 20 meq PO BID #20 tabs 10/03/23 12/04/23 12/03/23 Rx tablet,extended release Vit B-12 1,000 mcg PO DAILY 10/24/23 12/05/23 11/05/23 History carvedilol 3.125 mg tablet (Coreg) 3.125 mg PO BID 10/24/23 12/04/23 12/04/23 History levothyroxine 125 mcg tablet 125 mcg PO DAILY 10/24/23 12/04/23 12/03/23 History losartan 50 mg tablet 50 mg PO DAILY 10/24/23 12/04/23 12/04/23 History metolazone 5 mg tablet 5 mg PO DAILY 10/24/23 12/04/23 12/03/23 History ferrous sulfate 325 mg (65 mg 325 mg PO DAILY 11/06/23 12/05/23 Unknown History iron) tablet (Iron (ferrous sulfate)) aspirin 81 mg tablet,delayed 81 mg PO DAILY #90 tabs 11/07/23 12/05/23 12/03/23 Rx release clopidogrel 75 mg tablet 75 mg PO DAILY #90 tabs 11/07/23 12/04/23 12/03/23 Rx hydrocodone 5 mg-acetaminophen 325 1 tab PO Q6H PRN pain #14 tabs 12/02/23 12/05/23 Unknown Rx mg tablet bumetanide 1 mg tablet 3 mg PO DAILY 12/04/23 12/04/23 12/03/23 History insulin glargine 100 unit/mL (3 60 unit SUBCUT QPM 12/04/23 12/04/23 12/03/23 History mL) subcutaneous pen (Lantus Solostar U-100 Insulin) Allergies Allergy/AdvReac Type Severity Reaction Status Date / Time No Known Allergies Allergy Verified 12/03/23 09:34 Current Medications Generic Name Dose Route Start Last Admin Trade Name Chayq PRN Reason Stop Dose Admin Acetaminophen 650 mg 12/04/23 17:51 12/09/23 00:19 Acetaminophen 325 Mg Tablet PO 650 mg Q6H PRN Administration Mild/Mod Pain Or Temp >/= 101 Hydrocodone Bitart/Acetaminophen 1 tab 12/05/23 02:42 12/09/23 21:58 Hydrocodone-Acetaminophen 5-325 Mg Tablet PO 1 tab Q6H PRN Administration pain Aspirin 81 mg 12/07/23 11:00 12/10/23 08:14 Aspirin 81 Mg Ec Tablet PO 81 mg DAILY JYOTI Administration Carvedilol 3.125 mg 12/09/23 09:05 12/10/23 08:14 Carvedilol 3.125 Mg Tablet PO 3.125 mg BID JYOTI Administration Duloxetine HCl 60 mg 12/09/23 21:00 12/09/23 21:58 Duloxetine 60 Mg Capsule PO 60 mg BEDTIME JYOTI Administration Sodium Chloride 1,000 mls @ 75 mls/hr 12/04/23 18:00 12/10/23 09:20 Sodium Chloride 0.9% IV 75 mls/hr .[id number] JYOTI Infusion Ampicillin Sodium/Sulbactam 50 mls @ 100 mls/hr 12/10/23 09:00 12/10/23 09:02 Sodium 3 gm/ Sodium Chloride IV Infused Q12H JYOTI Infusion Protocol Insulin Glargine 30 unit 12/06/23 21:00 12/07/23 21:59 Insulin Glargine 100 Units/1 Ml SUBCUT 30 unit BEDTIME JYOTI Administration Insulin Human Lispro 0 unit 12/04/23 18:00 12/10/23 07:21 Insulin Lispro 100 Unit/1 Ml SUBCUT Not Given WM&BEDTIME JYOTI Protocol Levothyroxine Sodium 125 mcg 12/09/23 12:40 12/10/23 08:14 Levothyroxine 125 Mcg Tablet PO 125 mcg DAILY JYOTI Administration Morphine Sulfate 2 mg 12/07/23 02:29 12/09/23 22:49 Morphine 4 Mg/Ml Sdv 1 Ml IVP 2 mg Q4H PRN Administration SEVERE PAIN Ondansetron HCl 4 mg 12/04/23 17:51 12/04/23 19:41 Ondansetron 2 Mg/Ml Sdv 2 Ml IVP 4 mg Q8H PRN Administration vomiting, or N/V if npo Pantoprazole Sodium 40 mg 12/05/23 09:00 12/10/23 08:[address] 40 Mg Tablet PO 40 mg DAILY JYOTI Administration Sertraline HCl 50 mg 12/10/23 06:00 12/10/23 06:19 Sertraline 50 Mg Tablet PO 50 mg QAM JYOTI Administration Tamsulosin HCl 0.8 mg 12/09/23 21:00 12/09/23 21:58 Tamsulosin 0.4 Mg Capsule PO 0.8 mg BEDTIME JYOTI Administration PFSH Anesthesia Medical History EZEQUIEL (acute kidney injury) Peripheral arterial disease Limb ischemia Dyslipidemia Osteomyelitis of foot Diabetic wet gangrene of the foot Diabetes EZEQUIEL (acute kidney injury) Non-pressure chronic ulcer of other part of left foot with fat layer exposed Cardiomyopathy Bradycardia Aortic valve disease 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 mellitus MSSA (methicillin susceptible Staphylococcus aureus) infection Gangrene PVD (peripheral vascular disease) 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 on 07/21/2021 Acute hypokalemia Osteomyelitis of toe of left foot History of nonmelanoma skin cancer Atrial fibrillation Paroxysmal Benign prostatic hyperplasia Chronic anticoagulation Xarelto Hypertensive urgency NSTEMI (non-ST elevated myocardial infarction) Congestive heart failure Anticoagulation adequate with anticoagulant therapy Xarelto Varicose vein of leg Obesity HTN (hypertension) Diabetes TIA (transient ischemic attack) Surgical History S/P aortic valve replacement with bioprosthetic valve S/P cholecystectomy S/P cataract extraction S/P AVR (aortic valve replacement) Bioprosthetic, bovine Family History Father Diabetes Hypertension Grandfather Diabetes PATERNAL Hypertension PATERNAL Social History Smoking and tobacco/nicotine status: former use of tobacco/nicotine Alcohol intake: former Substance/Drug Use: never Marital status: / service: No Current occupational status: retired Current occupation: retired from [employer] Anesthesia 12/10/23 04:57 12/10/23 04:57 Short CBC 12/09/23 12/10/23 Range/Units 05:00 04:57 WBC 8.03 8.24 (3.29-11.43) 10^3/uL Hgb 7.50 L 8.10 L (11.27-16.99) g/dL Hct 24.2 L 26.5 L (37-53) % MCV 88.6 88.0 (82-101) fl Plt Count 164 200 (157-399) 10^3/cmm Neut % (Auto) 73.9 73.5 % Neut # (Auto) 5.94 6.06 (1.8-7.7) 10^3/uL BMP 12/09/23 12/10/23 05:00 04:57 Sodium 133 L 140 Potassium 4.0 4.1 Chloride 104 107 Carbon Dioxide 18 L 18 L BUN 62 H 54 H Creatinine 3.4 H 3.0 H Glucose 91 96 Calcium 7.5 L 8.0 L Liver Function 12/10/23 Range/Units 04:57 Total Bilirubin 0.6 (0.15-1.2) mg/dL AST 20 (0-40) U/L ALT 29 (0-41) U/L Alkaline Phosphatase 95 (40-130) U/L Albumin 2.9 L (3.5-5.2) g/dL Microbiology 12/04/23 18:12 Blood Culture - Final Blood Enterococcus faecalis 12/08/23 12:50 Blood Culture - Preliminary Blood NEGATIVE TO DATE 12/08/23 12:50 Blood Culture - Preliminary Blood NEGATIVE TO DATE Cardiac Studies: Echocardiogram 05/30/23 Echocardiogram Ultrasound 07/05/20 Transesophageal Echocardiogram 10/12/22 Sestamibi Stress Test (Cardiology) 01/03/23
[2023-12-10] MEDS: sodium chloride 0.9% 1,000 ML 30 ML IV (11:38)
[2023-12-10] MEDS: lidocaine 2% INJ 20 mL INJECTION (12:28)
[2023-12-10] MEDS: BUPivacaine 0.5% INJ 30 mL INJECTION (12:28)
--- NOTE | 2023-12-10 12:43 | P.OP_ITS ---
Operative Report Date of procedure: December 10, 2023 Pre-op diagnosis: Gangrene right foot Post-op diagnosis: Status post right transmetatarsal amputation secondary to gangrene Post-op findings: Devitalized soft tissue down to myofascial layer Procedure done: Primary delayed closure right foot. CPT code 34587 Implants: 2-0 Vicryl, 3-0 nylon, skin lexi Specimens removed/disposition: None Pathology: None Surgeon: Garrick Duggan DPM Geospatial Extractor Analysis: Juan Estimated blood loss: 5 No tourniquet IV fluids: See intraoperative documentation Urine output: None Complications: none Findings: Devitalized soft tissue as noted above Brief History: Patient is status post right transmetatarsal amputation secondary to gangrene. He underwent revascularization during this hospitalization. Has been on IV antibiotics with improvement of soft tissue. Will require further surgical debridement and primary delayed closure. Procedure: Under mild sedation the patient was brought to the operating room and remained on the gurney in supine position. A timeout was performed. Anesthesia was then administered by the anesthesia service. Local anesthesia injected by myself consisting of 30 cc of one-to-one mixture 1% lidocaine and 0.5% Marcaine plain and a right ankle block fashion. Well-padded pneumatic tourniquet was applied to the right ankle this was not inflated during the surgery however. Right lower extremity was scrubbed, prepped and draped utilizing normal aseptic technique. Attention was directed to the right transmetatarsal amputation site where some dusky ischemic appearing skin margins was appreciated more medially at the skin flaps this was sharply incised down to myofascial layer and passed from operative field. Utilizing pickups and a #15 blade the right transmetatarsal amputation site was debrided of all devitalized tissue down to and including subcutaneous tissue, myofascial layer and tendon. The incision was then irrigated with copious amounts of sterile skin solution and closed in a layered fashion. Deep tissue was closed with 2-0 Vicryl. Skin was then closed utilizing a combination of skin lexi and 3-0 nylon with apposition and approximation without tension on the skin flaps. The incision was dressed with Adaptic, sterile 4 x 4's, Kerlix followed by application of multilayer lightly compressive posterior splint with ankle joint at 90 degrees. No tourniquet was utilized during this surgery. Guarded as to patient's healing potential will monitor closely. Patient is okay for transfer to [facility] facility from podiatry standpoint, no further surgical intervention anticipated during this hospitalization. Will follow-up in podiatry clinic outpatient weekly. Patient may heel touch only for transfers to the right lower extremity. Plans for PICC line and IV antibiotics being managed by infectious disease.
--- NOTE | 2023-12-10 12:43 | W.PM.BPON ---
Date of Procedure: 12/10/23 Surgeon: Garrick Duggan DPM Manager Business Management(s): Juan Procedure(s) performed: Delayed primary closure right foot. Findings of the procedure(s): Devitalized tissue that was sharply debrided down to healthy bleeding Estimated blood loss: 5 mL Specimen(s) removed: None Post-operative diagnosis: Status post right transmetatarsal amputation secondary to gangrene no complications with anesthesia or surgery
--- NOTE | 2023-12-10 12:45 | P.PN_ITS ---
Subjective 2 Subjective: No acute events overnight. Today morning patient seen resting comfortably in his bed. Plan for OR closure today. Patient denies any nausea, vomiting, headache. Has remained hemodynamically stable and afebrile. Vitals/I&O/Wt Last Vital Signs Temp 97.9 F 12/10/23 07:24 Pulse 57 L 12/10/23 07:24 Resp 16 12/10/23 07:24 BP 141/56 12/10/23 07:24 Pulse Ox 99 12/10/23 07:24 O2 Del Method Room Air 12/10/23 07:24 O2 Flow Rate 6 12/10/23 12:35 12/09/23 12/10/23 12/10/23 22:59 06:59 14:59 Intake Total 1300 / 2300 100 / 2400 963.333 / 963.333 Output Total 900 / 2900 950 / 3850 5 / 5 Balance 400 / -600 -850 / -1450 958.333 / 958.333 Weight last 48 hrs Weight 109.486 kg Weight 109.486 kg Physical Exam 2 Narrative: General: No acute distress, AO x3, hard of hearing, on room air HEENT: PERRLA, pupils bilaterally equal and reactive Chest: Normal vesicular breath sounds, no added sounds, equal good air entry bilaterally CVS: S1-S2 regular, soft ejection systolic murmur at aortic region, no tachycardia, no gallops, no rubs Abdomen: Soft, nontender, no organomegaly, bowel sounds present Neuro: No focal deficits, no facial deformity, AO x3, Data 12/10/23 04:57 12/10/23 04:57 Micro: Microbiology 12/04/23 18:12 Blood Culture - Final Blood Enterococcus faecalis 12/08/23 12:50 Blood Culture - Preliminary Blood NEGATIVE TO DATE 12/08/23 12:50 Blood Culture - Preliminary Blood NEGATIVE TO DATE A&P Assessment and plan (1) Bacteremia due to Enterococcus: (2) Acute kidney injury superimposed on CKD: (3) Contrast-induced nephropathy: (4) Limb ischemia: (5) Cellulitis and abscess of right lower extremity: (6) Osteomyelitis of right foot: Qualifiers: Osteomyelitis type: chronic, with draining sinus Qualified Code(s): M 86.471 - Chronic osteomyelitis with draining sinus, right ankle and foot (7) Amputation of toe: Qualifiers: Laterality: unspecified laterality Qualified Code(s): S98.139A - Complete traumatic amputation of one unspecified lesser toe, initial encounter (8) S/P aortic valve replacement with bioprosthetic valve: (9) Sepsis: (10) CKD (chronic kidney disease): (11) Necrosis of toe: (12) Peripheral arterial disease: Plan #Sepsis secondary to most likely osteomyelitis, evidence of endorgan damage, lactic acidosis, fever, leukocytosis criteria met on admission. #Enterococcus faecalis bacteremia 4/4 bottles positive #Dry gangrene s/p right foot TMA #Limb ischemia??Status post intervention #History of osteomyelitis and other toes requiring amputation #History of peripheral arterial disease, intervention performed in the past #Chronic wounds #EZEQUIEL on Chronic kidney disease #Diabetes mellitus type 2, insulin-dependent Sepsis: Resolved. Enterococcus bacteremia: Repeat blood cultures from 12/07 so far negative. Patient has a history of bioprosthetic aortic valve. Appreciate ID recommendations. Repeat blood cultures from 12/05 negative. Antibiotics changed to Unasyn as per culture sensitivities and ID recommendations. Plan for PICC/mid line placement. Patient will need Unasyn for 2 weeks from 12/05. Dry gangrene with necrosis of the toe: Post right foot TMA. Plan for delayed closure as per podiatry today. Wound care as per podiatry team. Appreciate recommendations. Peripheral arterial disease: Limb ischemia: Post peripheral angiography and angioplasty. Appreciate cardiology recommendations. Continue with baby aspirin 81 mg daily. Will plan to start Plavix once cleared by podiatry team postoperatively. Appreciate lipid panel. Start on atorvastatin 20 mg oral daily. EZEQUIEL on CKD: Most likely in setting of contrast-induced nephropathy. Avoid nephrotoxins. Appreciate nephrology recommendations. Continue with bicarb drip but will decrease the rate at 75 cc/h. Patient euvolemic currently. Diuretics as per nephrology team. Monitor renal functions daily for now. Patient does have history of systolic heart failure with EF of 45 to 50% with dilated LA and reduced RV function. Will monitor for fluid overload. History of hypothyroidism: Appreciate TSH, free T3 and free T4 levels. Patient has been off levothyroxine since admission till 12/08. For now continue with levothyroxine at home dose. Patient will need repeat TSH and free T4 in 4 weeks. Hypertension: Goal blood pressure less than 140/90 mmHg. Continue with home dose of Coreg 3.125 mg twice daily. Uptitrate as for goal blood pressure of less than 140/90 mmHg. Holding off on home dose of losartan for now. Type 2 diabetes mellitus: A1c 9.6 recently. Hypoglycemic overnight. Hold off on Lantus. Continue with insulin sliding scale low-dose protocol. Most likely in setting of worsening renal functions. Discharge plan: Plan to discharge to SNF after PICC line placement. Awaiting authorization. Attestations 2 Medical Necessity Statement*: Requires further hospitalization for management of post right TMA care, contrast induced nephropathy leading to acute kidney injury, Enterococcus bacteremia Diagnoses Bacteremia due to Enterococcus R78.81; B95.2 Acute kidney injury superimposed on CKD N17.9; N18.9 Contrast-induced nephropathy N14.11; T50.8X5A Limb ischemia I99.8 Cellulitis and abscess of right lower extremity L03.115; L02.415 Chronic osteomyelitis of right foot with draining sinus M86.471 Osteomyelitis type: chronic, with draining sinus Amputated toe, unspecified laterality S98.139A Laterality: unspecified laterality S/P aortic valve replacement with bioprosthetic valve Z95.3 Sepsis A41.9 CKD (chronic kidney disease) N18.9 Necrosis of toe I96 Peripheral arterial disease I73.9
[2023-12-10 17:28] LABS: Glucose Point of Care 306 mg/dL (70-110)
[2023-12-10] MEDS: insulin lispro 100 unit/1 mL SUBCUT ×2 (18:05→22:15)
[2023-12-10] MEDS: HYDROcodone-acetaminophen 5-325 mg Tablet 1 TAB PO ×2 (18:05→22:11)
[2023-12-10 20:24] LABS: Glucose Point of Care 244 mg/dL (70-110)
[2023-12-10] MEDS: atorvastatin 40 mg Tablet 20 MG PO (22:08)
[2023-12-10] MEDS: duloxetine 60 mg Capsule PO (22:08)
[2023-12-10] MEDS: tamsulosin 0.4 mg Capsule 0.800000000000000044 MG PO (22:08)
[2023-12-10] MEDS: insulin glargine 100 units/1 mL 30 UNIT SUBCUT (22:09)
[2023-12-10] MEDS: sodium chloride 0.9% 1,000 ML 75 ML IV (22:10)
[2023-12-10] MEDS: morphine 4 mg/mL SDV 1 mL 2 MG IVP (22:11)
[2023-12-11 04:00] VITALS: BP 135/49; PULSE 57; RESP 12; TEMP 36.6; O2SAT 97
--- NOTE | 2023-12-11 04:52 | PC.NURSE ---
patient had 9 beats of v-tach at 22:34 earlier this shift and 10 beats @ 04:23. Patient was asymptomatic both times. Dr Claros was notified.
[2023-12-11 05:18] LABS: Basophils % 0.5 %; Eosinophils # 0.7 10^3/uL (0.0-0.8); Eosinophils % 9.4 %; Hematocrit 26.1 % (37-53); Lymphocytes # 0.7 10^3/uL (0.8-4.8); Lymphocytes % 8.9 %; Mean Corpuscular HGB Conc 29.9 g/dL (30-55); Mean Corpuscular Volume 90.3 fl (82-101); Mean Platelet Volume 10.4 fL (7.4-10.4); Monocytes # 0.8 10^3/uL (0.2-0.9); Neutrophils # 5.33 10^3/uL (1.8-7.7); Neutrophils % 69.8 %; Nucleated Red Blood Cells % 0 %; Platelet Count 195 10^3/cmm (157-399); Red Blood Count 2.89 10^6/uL (3.85-5.65); Red Cell Distribution Width 20.6 % (12.1-15.1); White Blood Count 7.64 10^3/uL (3.29-11.43)
[2023-12-11 05:46] LABS: Alanine Aminotransferase 24 U/L (0-41); Albumin Level 2.8 g/dL (3.5-5.2); Alkaline Phosphatase 87 U/L (40-130); Anion Gap 15.5 (5-19); Aspartate Amino Transferase 16 U/L (0-40); Blood Urea Nitrogen 55 mg/dL (8-23); Calcium 8.2 mg/dL (8.5-10.5); Carbon Dioxide 20 mmol/L (22-29); Chloride 110 mmol/L (98-107); Creatinine Clr Calc Pharmacy 30.8826; Glucose 65 mg/dL (65-115); Osmolality Calculated 305 mOsm/kg (285-295); Potassium 4.5 mmol/L (3.5-5.1); Sodium 141 mmol/L (136-145); Total Bilirubin 0.5 mg/dL (0.15-1.2); Total Protein 5.8 g/dL (6.6-8.7)
[2023-12-11 05:52] LABS: Magnesium 2.4 mg/dL (1.7-2.3)
[2023-12-11 06:00] VITALS: BMI 34.9
[2023-12-11 06:03] LABS: Glucose Point of Care 79 mg/dL (70-110)
[2023-12-11] MEDS: sertraline 50 mg Tablet PO (06:12)
--- NOTE | 2023-12-11 07:20 | XR_ITS ---
WS: [id number] Portable AP semiupright chest, 12/11/2023 Clinical Data: Post PICC insertion Comparison: Portable chest, 12/04/2023 Findings: The right PICC line enters the superior vena cava and ends just above the cavoatrial juncti on. No pneumothorax is seen. Impression: Satisfactory insertion of right PICC line.
--- NOTE | 2023-12-11 07:41 | P.PN_ITS ---
Subjective 2 Subjective: Patient seen bedside this morning. He is status post delayed primary closure right foot date of operation 12/10/2023. Anticipating transfer to [place] Vitals/I&O/Wt Last Vital Signs Temp 97.8 F 12/11/23 04:00 Pulse 57 L 12/11/23 04:00 Resp 12 12/11/23 04:00 BP 135/49 12/11/23 04:00 Pulse Ox 97 12/11/23 04:00 O2 Del Method Room Air 12/10/23 16:00 O2 Flow Rate 6 12/10/23 12:50 12/10/23 12/11/23 12/11/23 22:59 06:59 14:59 Intake Total 50 / 1210.000 Output Total 300 / 305 575 / 880 Balance -300 / 855.000 -525 / 330.000 Weight last 48 hrs Weight 243 lb 9 oz Weight 241 lb 6 oz Weight 241 lb 6 oz Physical Exam 2 Narrative: GENERAL: Patient is alert and oriented ?3 and in no acute distress. The following is a focused bilateral lower extremity exam. VASCULAR: Dorsalis pedis palpable bilaterally. Posterior tibial arteries palpable. Diminished pedal hair growth bilaterally. NEUROLOGICAL: Protective sensation diminished to light touch. DERMATOLOGICAL: Stable appearing postoperative changes to right foot transmetatarsal amputation site. No purulence and no erythema. MUSCULOSKELETAL: Status post right transmetatarsal amputation. Left open for staged debridement and secondary closure. Data 12/11/23 04:18 12/11/23 04:18 A&P Assessment and plan (1) Limb ischemia: (2) Peripheral arterial disease: (3) Gangrene of toe of right foot: Plan 73-year-old male with gangrene right foot, status post revascularization to the right lower extremity. Patient underwent right transmetatarsal amputation December 06, 2023 and delayed closure of amputation site December 10, 2023. He will remain in a posterior splint and may be heel touch for transfers to the right lower extremity. Advised to elevate the right foot while resting. Being transferred to [facility] Will provide details for [facility] dressing changes/orders. Recommending once daily dressing change with Betadine wet-to-dry and posterior splint that is well-padded. Will follow-up in podiatry clinic weekly will coordinate this with [place]. Patient okay for discharge from podiatry standpoint. Attestations 2 Medical Necessity Statement*: Gangrene right foot Coding Level of Care Code Acute Code for [facility] Diagnoses Limb ischemia I99.8 Peripheral arterial disease I73.9 Gangrene of toe of right foot I96
--- NOTE | 2023-12-11 08:35 | PC.NURSE ---
Single lumen PICC placed to right basilic vein. Referred to vascular access nurse for PICC placement for IV antibiotics x 6 weeks. Risks and benefits discussed and informed consent obtained from patient. Right arm assessed with right basilic vein measuring 3.5 mm, straight, and apparent best choice for placement. Using sterile technique and MST, right basilic vein accessed x 1 stick. Mid-arm circumference measured 10 cm from right AC 30 cm. Trimmed cath 45 cm with 0 cm external length noted. CXR shows tip in distal SVC near cavoatrial junction, in good position for use per radiologist. Line secured with stat-lock. Insertion site covered with Biopatch and TSM. Report given to bedside nurse, Iris.
[2023-12-11] MEDS: ampicillin-sulbactam 3 GM in sodium chloride 0.9% (plus) 50 ML IV ×2 (09:16→21:45)
[2023-12-11] MEDS: aspirin 81 mg EC Tablet PO (09:18)
[2023-12-11] MEDS: carvedilol 3.125 mg Tablet PO ×2 (09:19→18:26)
[2023-12-11] MEDS: levothyroxine 125 mcg Tablet PO (09:19)
[2023-12-11] MEDS: pantoprazole DR 40 mg Tablet PO (09:19)
[2023-12-11 10:53] VITALS: BP 144/48; PULSE 55; RESP 6; TEMP 37.1; O2SAT 97
[2023-12-11 11:03] LABS: Glucose Point of Care 178 mg/dL (70-110)
--- NOTE | 2023-12-11 11:20 | P.PN_ITS ---
Subjective 2 Subjective: no new complaints Medications: Reviewed: Yes Vitals/I&O/Wt Last Vital Signs Temp 98.8 F 12/11/23 10:53 Pulse 55 L 12/11/23 10:53 Resp 6 L 12/11/23 10:53 BP 144/48 12/11/23 10:53 Pulse Ox 97 12/11/23 10:53 O2 Del Method Room Air 12/10/23 16:00 O2 Flow Rate 6 12/10/23 12:50 12/10/23 12/11/23 12/11/23 22:59 06:59 14:59 Intake Total 50 / 1210.000 50 / 50 Output Total 300 / 305 575 / 880 Balance -300 / 855.000 -525 / 330.000 50 / 50 Weight last 48 hrs Weight 110.478 kg Weight 109.486 kg Weight 109.486 kg Physical Exam 2 Narrative: awake , alert , no distress \ s1s2 rrr per report Lungs clear per report No edema Data 12/11/23 04:18 12/11/23 04:18 A&P Assessment and plan (1) EZEQUIEL (acute kidney injury): (2) CKD (chronic kidney disease): Plan 1. Acute on chronic kidney disease stage III: Baseline creatinine is in the mid 1 range now has an EZEQUIEL with a creatinine up to 3.5 likely from ATN in the setting of acute infection also contrast nephropathy. -Patient nonoliguric, has mild metabolic acidosis - on NS @ 75 cc/hr--> DC IVFs today , will give PRN IV Lasix , no indication for dialysis currently, closely monitor renal function- cr improving -If possible avoid further IV contrast studies and nephrotoxins 2. History of hypertension: Was taking losartan at home which is on hold also holding metolazone. Blood pressure is currently stable. 3. History of diabetes 4. Wet gangrene and s/p transmetatarsal amputation of the right forefoot, 5. Anemia:, Multifactorial secondary to blood loss and CKD, will order LAURO Patient evaluated using audiovisual cart. Time spent 20 minutes. Attestations 2 Medical Necessity Statement*: per [facility] team Coding Level of Care Code Acute Code for [facility] Diagnoses EZEQUIEL (acute kidney injury) N17.9 CKD (chronic kidney disease) N18.9
--- NOTE | 2023-12-11 11:31 | PC.SOCIAL ---
IMM Updated Updated pt on IMM. No questions voiced. Provided pt a copy. Initialed, dated, & timed copy in chart.
--- NOTE | 2023-12-11 13:45 | P.PN_ITS ---
Subjective 2 Subjective: No acute vents overnight. Patient seen sitting at the edge of the bed today. Denies any nausea, vomiting, headache. Back to his baseline mentation. Has remained hemodynamically stable and afebrile on room air. Medications: Reviewed: Yes Vitals/I&O/Wt Last Vital Signs Temp 98.8 F 12/11/23 10:53 Pulse 55 L 12/11/23 10:53 Resp 6 L 12/11/23 10:53 BP 144/48 12/11/23 10:53 Pulse Ox 97 12/11/23 10:53 O2 Del Method Room Air 12/10/23 16:00 O2 Flow Rate 6 12/10/23 12:50 12/10/23 12/11/23 12/11/23 22:59 06:59 14:59 Intake Total 50 / 1210.000 50 / 50 Output Total 300 / 305 575 / 880 Balance -300 / 855.000 -525 / 330.000 50 / 50 Weight last 48 hrs Weight 110.478 kg Weight 109.486 kg Weight 109.486 kg Physical Exam 2 Narrative: General: No acute distress, AO x3, hard of hearing, on room air HEENT: PERRLA, pupils bilaterally equal and reactive Chest: Normal vesicular breath sounds, no added sounds, equal good air entry bilaterally CVS: S1-S2 regular, soft ejection systolic murmur at aortic region, no tachycardia, no gallops, no rubs Abdomen: Soft, nontender, no organomegaly, bowel sounds present Neuro: No focal deficits, no facial deformity, AO x3, Data 12/11/23 04:18 12/11/23 04:18 A&P Assessment and plan (1) Bacteremia due to Enterococcus: (2) Acute kidney injury superimposed on CKD: (3) Contrast-induced nephropathy: (4) Limb ischemia: (5) Cellulitis and abscess of right lower extremity: (6) Osteomyelitis of right foot: Qualifiers: Osteomyelitis type: chronic, with draining sinus Qualified Code(s): M 86.471 - Chronic osteomyelitis with draining sinus, right ankle and foot (7) Amputation of toe: Qualifiers: Laterality: unspecified laterality Qualified Code(s): S98.139A - Complete traumatic amputation of one unspecified lesser toe, initial encounter (8) S/P aortic valve replacement with bioprosthetic valve: (9) Sepsis: (10) CKD (chronic kidney disease): (11) Necrosis of toe: (12) Peripheral arterial disease: Plan #Sepsis secondary to most likely osteomyelitis, evidence of endorgan damage, lactic acidosis, fever, leukocytosis criteria met on admission. #Enterococcus faecalis bacteremia 4/4 bottles positive #Dry gangrene s/p right foot TMA #Limb ischemia??Status post intervention #History of osteomyelitis and other toes requiring amputation #History of peripheral arterial disease, intervention performed in the past #Chronic wounds #EZEQUIEL on Chronic kidney disease #Diabetes mellitus type 2, insulin-dependent Sepsis: Resolved. Enterococcus bacteremia: Repeat blood cultures from 12/07 so far negative. Patient has a history of bioprosthetic aortic valve. Appreciate ID recommendations. Repeat blood cultures from 12/05 negative. Antibiotics changed to Unasyn as per culture sensitivities and ID recommendations. Plan for PICC/mid line placement. Patient will need Unasyn for 2 weeks from 12/05. Dry gangrene with necrosis of the toe: Post right foot TMA. Plan for delayed closure as per podiatry today. Wound care as per podiatry team. Appreciate recommendations. Peripheral arterial disease: Limb ischemia: Post peripheral angiography and angioplasty. Appreciate cardiology recommendations. Continue with baby aspirin 81 mg daily. Will plan to start Plavix once cleared by podiatry team postoperatively. Appreciate lipid panel. Start on atorvastatin 20 mg oral daily. EZEQUIEL on CKD: Most likely in setting of contrast-induced nephropathy. Avoid nephrotoxins. Appreciate nephrology recommendations. Continue with bicarb drip but will decrease the rate at 75 cc/h. Patient euvolemic currently. Diuretics as per nephrology team. Monitor renal functions daily for now. Patient does have history of systolic heart failure with EF of 45 to 50% with dilated LA and reduced RV function. Will monitor for fluid overload. History of hypothyroidism: Appreciate TSH, free T3 and free T4 levels. Patient has been off levothyroxine since admission till 12/08. For now continue with levothyroxine at home dose. Patient will need repeat TSH and free T4 in 4 weeks. Hypertension: Goal blood pressure less than 140/90 mmHg. Continue with home dose of Coreg 3.125 mg twice daily. Uptitrate as for goal blood pressure of less than 140/90 mmHg. Holding off on home dose of losartan for now. Type 2 diabetes mellitus: A1c 9.6 recently. Hypoglycemic overnight. Hold off on Lantus. Continue with insulin sliding scale low-dose protocol. Most likely in setting of worsening renal functions. Discharge plan: Plan to discharge to SNF after PICC line placement. Awaiting authorization. Plan for the day: Plan for PICC line placement today. Continue with IV Unasyn as per ID recommendations. Creatinine trending down to stable. Urine output appropriate. Can plan to stop IV fluids. Patient remains euvolemic. Hold off on diuretics. Continue with home dose of Coreg. Holding off on losartan for now. Mentation back to baseline. Continue with home dose of sertraline. Continue with PT/OT. Attestations 2 Medical Necessity Statement*: Requires further hospitalization for management of contrast-induced nephropathy in a patient with severe peripheral artery disease post amputation for dry gangrene, Enterococcus bacteremia while safe discharge planning to SNF and outpatient antibiotics. Diagnoses Bacteremia due to Enterococcus R78.81; B95.2 Acute kidney injury superimposed on CKD N17.9; N18.9 Contrast-induced nephropathy N14.11; T50.8X5A Limb ischemia I99.8 Cellulitis and abscess of right lower extremity L03.115; L02.415 Chronic osteomyelitis of right foot with draining sinus M86.471 Osteomyelitis type: chronic, with draining sinus Amputated toe, unspecified laterality S98.139A Laterality: unspecified laterality S/P aortic valve replacement with bioprosthetic valve Z95.3 Sepsis A41.9 CKD (chronic kidney disease) N18.9 Necrosis of toe I96 Peripheral arterial disease I73.9
[2023-12-11 19:22] LABS: Glucose Point of Care 241 mg/dL (70-110)
[2023-12-11] MEDS: insulin lispro 100 unit/1 mL SUBCUT ×2 (19:25→21:46)
[2023-12-11 20:55] VITALS: BP 123/42; PULSE 52; RESP 12; TEMP 36.3; O2SAT 96
[2023-12-11 21:42] LABS: Glucose Point of Care 261 mg/dL (70-110)
[2023-12-11] MEDS: atorvastatin 40 mg Tablet 20 MG PO (21:44)
[2023-12-11] MEDS: duloxetine 60 mg Capsule PO (21:44)
[2023-12-11] MEDS: HYDROcodone-acetaminophen 5-325 mg Tablet 1 TAB PO (21:44)
[2023-12-11] MEDS: tamsulosin 0.4 mg Capsule 0.800000000000000044 MG PO (21:44)
[2023-12-11] MEDS: insulin glargine 100 units/1 mL 25 UNIT SUBCUT (21:46)
[2023-12-12] VITALS (7 sets, daily range): BP systolic 127–149; BP diastolic 47–64; PULSE 52–63; RESP 9–19; TEMP 36.3–36.9; O2SAT 90–100
[2023-12-12 03:54] LABS: Basophils % 0.5 %; Eosinophils # 0.6 10^3/uL (0.0-0.8); Eosinophils % 7.1 %; Hematocrit 26.8 % (37-53); Lymphocytes # 0.6 10^3/uL (0.8-4.8); Lymphocytes % 7.1 %; Mean Corpuscular HGB Conc 30.6 g/dL (30-55); Mean Corpuscular Hemoglobin 27.2 pg (27-33); Mean Corpuscular Volume 88.7 fl (82-101); Mean Platelet Volume 10.3 fL (7.4-10.4); Monocytes # 0.9 10^3/uL (0.2-0.9); Monocytes % 9.9 %; Neutrophils # 6.41 10^3/uL (1.8-7.7); Neutrophils % 74.9 %; Nucleated Red Blood Cells % 0 %; Platelet Count 214 10^3/cmm (157-399); Red Blood Count 3.02 10^6/uL (3.85-5.65); Red Cell Distribution Width 20.6 % (12.1-15.1); White Blood Count 8.56 10^3/uL (3.29-11.43)
[2023-12-12 04:10] LABS: Alanine Aminotransferase 22 U/L (0-41); Albumin Level 2.8 g/dL (3.5-5.2); Alkaline Phosphatase 80 U/L (40-130); Blood Urea Nitrogen 51 mg/dL (8-23); Calcium 8.1 mg/dL (8.5-10.5); Carbon Dioxide 20 mmol/L (22-29); Chloride 110 mmol/L (98-107); Creatinine Clr Calc Pharmacy 42.4519; Globulin 3.2 g/dL (1.3-4.6); Glucose 48 mg/dL (65-115); Osmolality Calculated 301 mOsm/kg (285-295); Sodium 140 mmol/L (136-145); Total Bilirubin 0.6 mg/dL (0.15-1.2)
[2023-12-12 04:14] LABS: Anion Gap 14.3 (5-19); Aspartate Amino Transferase 21 U/L (0-40); Potassium 4.3 mmol/L (3.5-5.1)
[2023-12-12 04:29] LABS: Magnesium 2.3 mg/dL (1.7-2.3)
[2023-12-12 06:46] LABS: Glucose Point of Care 115 mg/dL (70-110)
[2023-12-12] MEDS: sertraline 50 mg Tablet PO (07:09)
[2023-12-12] MEDS: carvedilol 3.125 mg Tablet PO ×2 (08:26→17:42)
[2023-12-12] MEDS: pantoprazole DR 40 mg Tablet PO (08:26)
[2023-12-12] MEDS: aspirin 81 mg EC Tablet PO (08:26)
[2023-12-12] MEDS: ampicillin-sulbactam 3 GM in sodium chloride 0.9% (plus) 50 ML IV ×2 (08:26→20:52)
[2023-12-12] MEDS: levothyroxine 125 mcg Tablet PO (08:26)
--- NOTE | 2023-12-12 08:27 | P.PN_ITS ---
Subjective 2 Subjective: Patient seen bedside this morning. He is status post delayed primary closure right foot date of operation 12/10/2023. Anticipating transfer to [place] Vitals/I&O/Wt Last Vital Signs Temp 97.7 F 12/12/23 08:07 Pulse 52 L 12/12/23 08:07 Resp 9 L 12/12/23 08:07 BP 142/50 12/12/23 08:07 Pulse Ox 100 12/12/23 04:23 O2 Del Method Room Air 12/12/23 04:23 O2 Flow Rate 6 12/10/23 12:50 12/11/23 12/12/23 12/12/23 22:59 06:59 14:59 Intake Total 2442 / 2492 240 / 240 Output Total 630 / 630 550 / 1180 Balance 1812 / 1862 -550 / 1312 240 / 240 Weight last 48 hrs Weight 243 lb 9 oz Weight 243 lb 9 oz Physical Exam 2 Narrative: GENERAL: Patient is alert and oriented ?3 and in no acute distress. The following is a focused bilateral lower extremity exam. VASCULAR: Dorsalis pedis palpable bilaterally. Posterior tibial arteries palpable. Diminished pedal hair growth bilaterally. NEUROLOGICAL: Protective sensation diminished to light touch. DERMATOLOGICAL: Stable appearing postoperative changes to right foot transmetatarsal amputation site. No purulence and no erythema. MUSCULOSKELETAL: Status post right transmetatarsal amputation. Left open for staged debridement and secondary closure. Data 12/12/23 03:33 12/12/23 03:33 Micro: Microbiology 12/06/23 13:25 Blood Culture - Final Blood NO GROWTH AFTER 5 DAYS 12/06/23 13:25 Blood Culture - Final Blood NO GROWTH AFTER 5 DAYS A&P Assessment and plan (1) Limb ischemia: (2) Peripheral arterial disease: (3) Gangrene of toe of right foot: Plan 73-year-old male with gangrene right foot, status post revascularization to the right lower extremity. Patient underwent right transmetatarsal amputation December 06, 2023 and delayed closure of amputation site December 10, 2023. He will remain in a posterior splint and may be heel touch for transfers to the right lower extremity. Advised to elevate the right foot while resting. Being transferred to [facility] Will provide details for care home dressing changes/orders. Recommending once daily dressing change with Betadine wet-to-dry and posterior splint that is well-padded. Will follow-up in podiatry clinic weekly will coordinate this with Wilma. Scheduled for podiatry clinic appointment for postop follow-up on December 18, 2023 at 9:00 AM. Wilma is aware. Patient okay for discharge from podiatry standpoint. Attestations 2 Medical Necessity Statement*: Gangrene right foot Coding Level of Care Code Acute Code for [facility] Fwd Diagnoses Limb ischemia I99.8 Peripheral arterial disease I73.9 Gangrene of toe of right foot I96
--- NOTE | 2023-12-12 09:11 | P.PN_ITS ---
Subjective 2 Subjective: Patient is doing well. no chest pain. Renal function is back to baseline. Vitals/I&O/Wt Last Vital Signs Temp 97.7 F 12/12/23 08:07 Pulse 52 L 12/12/23 08:07 Resp 9 L 12/12/23 08:07 BP 142/50 12/12/23 08:07 Pulse Ox 100 12/12/23 04:23 O2 Del Method Room Air 12/12/23 04:23 O2 Flow Rate 6 12/10/23 12:50 12/11/23 12/12/23 12/12/23 22:59 06:59 14:59 Intake Total 2442 / 2492 290 / 290 Output Total 630 / 630 550 / 1180 Balance 1812 / 1862 -550 / 1312 290 / 290 Weight last 48 hrs Weight 243 lb 9 oz Weight 243 lb 9 oz Physical Exam 2 Narrative: GENERAL: Patient is alert, awake and oriented x3. [] NECK: No jugular vein distension. [] HEENT: No cyanosis. No icterus. No pallor. [] HEART: Regular S1 and S2. Grade 2/6 systolic murmur LUNGS: Clear to auscultate bilaterally. [] CENTRAL NERVOUS SYSTEM: Grossly nonfocal. [] EXTREMITIES: Dressing applied to right lower extremity. Data 12/13/23 05:22 12/13/23 05:22 Micro: Microbiology 12/06/23 13:25 Blood Culture - Final Blood NO GROWTH AFTER 5 DAYS 12/06/23 13:25 Blood Culture - Final Blood NO GROWTH AFTER 5 DAYS A&P Assessment and plan (1) Bacteremia due to Enterococcus: (2) Limb ischemia: (3) CKD (chronic kidney disease): (4) Dyslipidemia: (5) EZEQUIEL (acute kidney injury): Plan Creatinine is back to baseline. No changes to medications. Avoid nephrotoxins Thank you for involving us with care of this patient. Please call with questions. Attestations 2 Medical Necessity Statement*: Care expected to cross 2 midnights. Coding Level of Care Code Acute Code for [facility] Fwd Diagnoses Bacteremia due to Enterococcus R78.81; B95.2 Limb ischemia I99.8 CKD (chronic kidney disease) N18.9 Dyslipidemia E78.5 EZEQUIEL (acute kidney injury) N17.9
[2023-12-12 10:37] LABS: Glucose Point of Care 170 mg/dL (70-110)
[2023-12-12] MEDS: insulin lispro 100 unit/1 mL SUBCUT ×2 (12:15→23:09)
--- NOTE | 2023-12-12 13:19 | P.PN_ITS ---
Subjective 2 Subjective: No acute events overnight. Patient has remained hemodynamically stable and afebrile. Patient remains on room air laying comfortably in bed and sleeping. Denies any nausea, vomiting, headache. Vitals/I&O/Wt Last Vital Signs Temp 98.4 F 12/12/23 11:56 Pulse 52 L 12/12/23 11:56 Resp 11 L 12/12/23 11:56 BP 149/49 12/12/23 11:56 Pulse Ox 100 12/12/23 04:23 O2 Del Method Room Air 12/12/23 04:23 O2 Flow Rate 6 12/10/23 12:50 12/11/23 12/12/23 12/12/23 22:59 06:59 14:59 Intake Total 2442 / 2492 410 / 410 Output Total 630 / 630 550 / 1180 Balance 1812 / 1862 -550 / 1312 410 / 410 Weight last 48 hrs Weight 110.478 kg Weight 110.478 kg Physical Exam 2 Narrative: General: No acute distress, AO x3, hard of hearing, on room air HEENT: PERRLA, pupils bilaterally equal and reactive Chest: Normal vesicular breath sounds, no added sounds, equal good air entry bilaterally CVS: S1-S2 regular, soft ejection systolic murmur at aortic region, no tachycardia, no gallops, no rubs Abdomen: Soft, nontender, no organomegaly, bowel sounds present Neuro: No focal deficits, no facial deformity, AO x3, Data 12/12/23 03:33 12/12/23 03:33 Micro: Microbiology 12/06/23 13:25 Blood Culture - Final Blood NO GROWTH AFTER 5 DAYS 12/06/23 13:25 Blood Culture - Final Blood NO GROWTH AFTER 5 DAYS A&P Assessment and plan (1) Bacteremia due to Enterococcus: (2) Acute kidney injury superimposed on CKD: (3) Contrast-induced nephropathy: (4) Limb ischemia: (5) Cellulitis and abscess of right lower extremity: (6) Osteomyelitis of right foot: Qualifiers: Osteomyelitis type: chronic, with draining sinus Qualified Code(s): M 86.471 - Chronic osteomyelitis with draining sinus, right ankle and foot (7) Amputation of toe: Qualifiers: Laterality: unspecified laterality Qualified Code(s): S98.139A - Complete traumatic amputation of one unspecified lesser toe, initial encounter (8) S/P aortic valve replacement with bioprosthetic valve: (9) Sepsis: (10) CKD (chronic kidney disease): (11) Necrosis of toe: (12) Peripheral arterial disease: Plan #Sepsis secondary to most likely osteomyelitis, evidence of endorgan damage, lactic acidosis, fever, leukocytosis criteria met on admission. #Enterococcus faecalis bacteremia 4/4 bottles positive #Dry gangrene s/p right foot TMA #Limb ischemia??Status post intervention #History of osteomyelitis and other toes requiring amputation #History of peripheral arterial disease, intervention performed in the past #Chronic wounds #EZEQUIEL on Chronic kidney disease #Diabetes mellitus type 2, insulin-dependent Sepsis: Resolved. Enterococcus bacteremia: Repeat blood cultures from 12/07 so far negative. Patient has a history of bioprosthetic aortic valve. Appreciate ID recommendations. Repeat blood cultures from 12/05 negative. Antibiotics changed to Unasyn as per culture sensitivities and ID recommendations. Plan for PICC/mid line placement. Patient will need Unasyn for 2 weeks from 12/05. Dry gangrene with necrosis of the toe: Post right foot TMA. Plan for delayed closure as per podiatry on 12/09. Wound care as per podiatry team. Appreciate recommendations. Peripheral arterial disease: Limb ischemia: Post peripheral angiography and angioplasty. Appreciate cardiology recommendations. Continue with baby aspirin 81 mg daily. Will plan to start Plavix once cleared by podiatry team postoperatively. Appreciate lipid panel. Start on atorvastatin 20 mg oral daily. EZEQUIEL on CKD: Most likely in setting of contrast-induced nephropathy. Avoid nephrotoxins. Appreciate nephrology recommendations. Continue with bicarb drip but will decrease the rate at 75 cc/h. Patient euvolemic currently. Diuretics as per nephrology team. Monitor renal functions daily for now. Patient does have history of systolic heart failure with EF of 45 to 50% with dilated LA and reduced RV function. Will monitor for fluid overload. History of hypothyroidism: Appreciate TSH, free T3 and free T4 levels. Patient has been off levothyroxine since admission till 12/08. For now continue with levothyroxine at home dose. Patient will need repeat TSH and free T4 in 4 weeks. Hypertension: Goal blood pressure less than 140/90 mmHg. Continue with home dose of Coreg 3.125 mg twice daily. Uptitrate as for goal blood pressure of less than 140/90 mmHg. Holding off on home dose of losartan for now. Type 2 diabetes mellitus: A1c 9.6 recently. Hypoglycemic overnight. Hold off on Lantus. Continue with insulin sliding scale low-dose protocol. Most likely in setting of worsening renal functions. Discharge plan: Plan to discharge to SNF after PICC line placement. Awaiting authorization. Plan for the day: PICC line placed yesterday. Patient has remained hemodynamically stable and afebrile. Has remained hemodynamically stable. Continue with current antihypertensives including Coreg 3.125 mg twice daily. If needed can start patient on low-dose Imdur. Creatinine continues to improve. Down to 1.9. Hold off on any further fluids. Start on Bumex from tomorrow. Will start on 1 mg oral daily from tomorrow. Awaiting prior authorization for discharge to SNF. Plan to continue Unasyn till 12/19. Attestations 2 Medical Necessity Statement*: Requires further hospitalization for management of contrast-induced nephropathy in a patient who was admitted with acute limb ischemia, Enterococcus bacteremia while safe discharge planning and outpatient antibiotics. Diagnoses Bacteremia due to Enterococcus R78.81; B95.2 Acute kidney injury superimposed on CKD N17.9; N18.9 Contrast-induced nephropathy N14.11; T50.8X5A Limb ischemia I99.8 Cellulitis and abscess of right lower extremity L03.115; L02.415 Chronic osteomyelitis of right foot with draining sinus M86.471 Osteomyelitis type: chronic, with draining sinus Amputated toe, unspecified laterality S98.139A Laterality: unspecified laterality S/P aortic valve replacement with bioprosthetic valve Z95.3 Sepsis A41.9 CKD (chronic kidney disease) N18.9 Necrosis of toe I96 Peripheral arterial disease I73.9
--- NOTE | 2023-12-12 16:49 | P.PN_ITS ---
Subjective 2 Subjective: doing well Medications: Reviewed: Yes Vitals/I&O/Wt Last Vital Signs Temp 97.8 F 12/12/23 16:11 Pulse 55 L 12/12/23 16:11 Resp 13 12/12/23 16:11 BP 127/58 12/12/23 16:11 Pulse Ox 100 12/12/23 04:23 O2 Del Method Room Air 12/12/23 04:23 O2 Flow Rate 6 12/10/23 12:50 12/12/23 12/12/23 12/12/23 06:59 14:59 22:59 Intake Total 410 / 410 Output Total 550 / 1180 Balance -550 / 1312 410 / 410 Weight last 48 hrs Weight 110.478 kg Weight 110.478 kg Physical Exam 2 Narrative: awake , alert , no distress \ s1s2 rrr per report Lungs clear per report No edema Data 12/12/23 03:33 12/12/23 03:33 Micro: Microbiology 12/06/23 13:25 Blood Culture - Final Blood NO GROWTH AFTER 5 DAYS 12/06/23 13:25 Blood Culture - Final Blood NO GROWTH AFTER 5 DAYS A&P Assessment and plan (1) EZEQUIEL (acute kidney injury): (2) CKD (chronic kidney disease): Plan 1. Acute on chronic kidney disease stage III: Baseline creatinine is in the mid 1 range now has an EZEQUIEL with a creatinine up to 3.5 likely from ATN in the setting of acute infection also contrast nephropathy. -Patient nonoliguric, has mild metabolic acidosis losely monitor renal function- cr improving -If possible avoid further IV contrast studies and nephrotoxins 2. History of hypertension: Was taking losartan at home which is on hold also holding metolazone. Blood pressure is currently stable.can resule losartan at DC 3. History of diabetes 4. Wet gangrene and s/p transmetatarsal amputation of the right forefoot, 5. Anemia:, Multifactorial secondary to blood loss and CKD, will order LAURO Patient evaluated using audiovisual cart. Time spent 20 minutes. Attestations 2 Medical Necessity Statement*: per betty Coding Level of Care Code Acute Code for g Fwd Diagnoses EZEQUIEL (acute kidney injury) N17.9 CKD (chronic kidney disease) N18.9
[2023-12-12 16:55] LABS: Glucose Point of Care 124 mg/dL (70-110)
[2023-12-12] MEDS: HYDROcodone-acetaminophen 5-325 mg Tablet 1 TAB PO (17:42)
--- NOTE | 2023-12-12 20:06 | PC.NURSE ---
pt transferred to m/s at this time, no pain at this time. pt able to transfer with heal pressure with no issues.
[2023-12-12] MEDS: atorvastatin 40 mg Tablet 20 MG PO (20:51)
[2023-12-12] MEDS: tamsulosin 0.4 mg Capsule 0.800000000000000044 MG PO (20:51)
[2023-12-12] MEDS: duloxetine 60 mg Capsule PO (20:52)
[2023-12-12] MEDS: insulin glargine 100 units/1 mL 25 UNIT SUBCUT (20:55)
[2023-12-12 22:42] LABS: Glucose Point of Care 234 mg/dL (70-110)
[2023-12-13] VITALS: BP 146/53; PULSE 55; RESP 17; TEMP 36.8; O2SAT 95
[2023-12-13 03:17] VITALS: BP 122/62; PULSE 60; RESP 17; TEMP 36.6; O2SAT 96
[2023-12-13] MEDS: sertraline 50 mg Tablet PO (05:22)
[2023-12-13 06:00] VITALS: BMI 33.9
[2023-12-13 06:00] LABS: Basophils # 0.1 10^3/uL (0.0-0.1); Basophils % 0.7 %; Eosinophils # 0.7 10^3/uL (0.0-0.8); Hematocrit 28.7 % (37-53); Lymphocytes # 0.9 10^3/uL (0.8-4.8); Lymphocytes % 9.6 %; Mean Corpuscular HGB Conc 30.7 g/dL (30-55); Mean Corpuscular Hemoglobin 27.3 pg (27-33); Mean Corpuscular Volume 89.1 fl (82-101); Mean Platelet Volume 10.2 fL (7.4-10.4); Monocytes # 1.2 10^3/uL (0.2-0.9); Monocytes % 12.3 %; Neutrophils # 6.71 10^3/uL (1.8-7.7); Neutrophils % 70.1 %; Nucleated Red Blood Cells % 0 %; Platelet Count 261 10^3/cmm (157-399); Red Blood Count 3.22 10^6/uL (3.85-5.65); Red Cell Distribution Width 20.8 % (12.1-15.1); White Blood Count 9.58 10^3/uL (3.29-11.43)
[2023-12-13 06:53] LABS: Glucose Point of Care 43 mg/dL (70-110)
[2023-12-13 06:59] LABS: Alanine Aminotransferase 22 U/L (0-41); Albumin Level 2.9 g/dL (3.5-5.2); Alkaline Phosphatase 80 U/L (40-130); Blood Urea Nitrogen 43 mg/dL (8-23); Calcium 8.5 mg/dL (8.5-10.5); Carbon Dioxide 21 mmol/L (22-29); Chloride 111 mmol/L (98-107); Creatinine Clr Calc Pharmacy 46.7358; Globulin 3.1 g/dL (1.3-4.6); Osmolality Calculated 297 mOsm/kg (285-295); Sodium 140 mmol/L (136-145); Total Bilirubin 0.6 mg/dL (0.15-1.2)
[2023-12-13 07:05] LABS: Glucose Point of Care 38 mg/dL (70-110)
[2023-12-13 07:09] LABS: Anion Gap 12.7 (5-19); Glucose 28 mg/dL (65-115); Potassium 4.7 mmol/L (3.5-5.1)
[2023-12-13 07:10] LABS: Aspartate Amino Transferase 26 U/L (0-40)
[2023-12-13 07:10] LABS: Glucose Point of Care 45 mg/dL (70-110)
[2023-12-13] MEDS: dextrose 10% 125 ML 750 ML IV (07:16)
[2023-12-13 07:59] VITALS: BP 153/71; PULSE 75; RESP 14; O2SAT 95
[2023-12-13 08:06] LABS: Glucose Point of Care 164 mg/dL (70-110)
--- NOTE | 2023-12-13 08:41 | P.PN_ITS ---
Subjective 2 Subjective: doing well Medications: Reviewed: Yes Vitals/I&O/Wt Last Vital Signs Temp 97.8 F 12/13/23 03:17 Pulse 75 12/13/23 07:59 Resp 14 12/13/23 07:59 BP 153/71 12/13/23 07:59 Pulse Ox 95 12/13/23 07:59 O2 Del Method Room Air 12/13/23 07:59 O2 Flow Rate 6 12/10/23 12:50 12/12/23 12/13/23 12/13/23 22:59 06:59 14:59 Intake Total 720 / 1130 125 / 125 Output Total 300 / 300 200 / 500 Balance 420 / 830 -200 / 630 125 / 125 Weight last 48 hrs Weight 107.184 kg Weight 110.478 kg Physical Exam 2 Narrative: awake , alert , no distress \ s1s2 rrr per report Lungs clear per report No edema Data 12/13/23 05:22 12/13/23 05:22 A&P Assessment and plan (1) EZEQUIEL (acute kidney injury): (2) CKD (chronic kidney disease): Plan 1. Acute on chronic kidney disease stage III: Baseline creatinine is in the mid 1 range now has an EZEQUIEL with a creatinine up to 3.5 likely from ATN in the setting of acute infection also contrast nephropathy. monitor renal function- cr improving - avoid further IV contrast studies and nephrotoxins 2. History of hypertension: Was taking losartan at home which is on hold also holding metolazone. Blood pressure is currently stable.can resume losartan at DC 3. History of diabetes 4. Wet gangrene and s/p transmetatarsal amputation of the right forefoot, 5. Anemia:, Multifactorial secondary to blood loss and CKD, will order LAURO Patient evaluated using audiovisual cart. Time spent 20 minutes. Attestations 2 Medical Necessity Statement*: per betty Coding Level of Care Code Acute Code for [facility] Fwd Diagnoses EZEQUIEL (acute kidney injury) N17.9 CKD (chronic kidney disease) N18.9
--- NOTE | 2023-12-13 08:52 | P.DS_ITS ---
Discharge Providers Date of Admission: 12/04/23 19:31 Date of Discharge: December 13, 2023 Attending Provider at Admission: Michelle Castelan MD Attending Provider at Discharge: Carlton Simpson MD Consults: Cardiology: Dr. Moore Podiatry: Dr. Duggan Telemetry nephrology ID: Dr. Claros Primary Care Provider: Rowdy Sheldon DO Diagnoses at Discharge Discharge Diagnosis (1) EZEQUIEL (acute kidney injury): Status: Acute (2) CKD (chronic kidney disease): Status: Chronic Reason for Visit Reason for Visit: Gen weakness Brief History: History as per HPI: Surendra Roland is a 73 year old male with history of peripheral vascular disease, diabetic foot ulcer, previous history of vascular intervention of left leg by Dr. Moore, for right foot ulcer he has been seeing Dr. Duggan, presented today for confusion, labored breathing. Patient is being held by a caregiver who is a friend her name is Ольга. Medical DPOA is Flynn dunnseb who lives in [place]. Patient is full code. He has wet gangrene of right foot involving lateral toes with signs of sepsis with high lactic acid leukocytosis, endorgan damage of creatinine 1.9,fever 102 Hospital Course Hospital Course Patient was admitted to the hospital further evaluation and management with concerns for sepsis secondary to gangrene of toe of right foot along with limb ischemia. He was started on broad-spectrum antibiotics, podiatry and cardiology were consulted. Given concerns for limb ischemia he underwent emergent peripheral angiogram which showed total occlusion of the right SFA from ostial to mid segment for which he underwent successful revascularization with balloon angioplasty with excellent flow. Patient was continued on broad-spectrum IV antibiotics. He underwent right transmetatarsal amputation. During hospitalization patient developed contrast-induced nephropathy leading to EZEQUIEL on CKD for which nephrology was consulted and he was treated conservatively with IV fluids maintaining fluid balance. His renal functions gradually improved. His blood cultures also came back positive for Enterococcus for which she was seen by infectious disease. Patient did have episodes of hypoglycemia during hospitalization for which his insulin has been adjusted. He is to take 10 units of Lantus daily along with insulin sliding scale at low-dose protocol which has been sent along with discharge. Otherwise his hospitalization has been unremarkable. He has been discharged to SNF for further rehabilitation and for IV antibiotics with IV Unasyn for next 10 days still December 19. Physical Exam Narrative: General: No acute distress, AO x3, hard of hearing, on room air HEENT: PERRLA, pupils bilaterally equal and reactive Chest: Normal vesicular breath sounds, no added sounds, equal good air entry bilaterally CVS: S1-S2 regular, soft ejection systolic murmur at aortic region, no tachycardia, no gallops, no rubs Abdomen: Soft, nontender, no organomegaly, bowel sounds present Neuro: No focal deficits, no facial deformity, AO x3, Discharge Data Studies Completed and Pending Completed Studies During Hospitalization Category Date Time Status NEON PUMPER request for service Routine Exams 12/05/23 06:51 Completed CXRP [XR chest 1V portable [id number]] Routine Exams 12/11/23 07:20 Completed XR chest 1V portable [id number] Stat Exams 12/04/23 16:53 Completed XR foot RT min 3V* [id number] Stat Exams 12/04/23 18:11 Completed XR tibia fibula RT 2V [id number] Stat Exams 12/04/23 18:11 Completed Pathology: Surgical [PTH] Routine Pth 12/06/23 09:08 [place] [id number] Stat Ultrasound 12/04/23 17:23 Completed Pending at discharge Category Date Time Status Blood Culture Stat Lab 12/08/23 12:50 Results COVID [SARS Covid-2 Antigen] Stat Lab 12/13/23 08:17 Uncollected Radiology Impressions Duplex Scan Lower Extremity Artery 12/04/23 17:23 IMPRESSION: Severe right lower extremity peripheral arterial occlusive disease features. Foot X-Ray 12/04/23 18:11 IMPRESSION: No acute findings. Tibia/Fibula X-Ray 12/04/23 18:11 IMPRESSION: No acute findings. Laboratory Results WBC 9.58 10^3/uL (3.29-11.43) 12/13/23 05:22 RBC 3.22 10^6/uL (3.85-5.65) L 12/13/23 05:22 Hgb 8.80 g/dL (11.27-16.99) L 12/13/23 05:22 Hct 28.7 % (37-53) L 12/13/23 05:22 MCV 89.1 fl (82-101) 12/13/23 05:22 MCH 27.3 pg (27-33) 12/13/23 05:22 MCHC 30.7 g/dL (30-55) 12/13/23 05:22 RDW 20.8 % (12.1-15.1) H 12/13/23 05:22 Plt Count 261 10^3/cmm (157-399) 12/13/23 05:22 MPV 10.2 fL (7.4-10.4) 12/13/23 05:22 Neut % (Auto) 70.1 % 12/13/23 05:22 Lymph % (Auto) 9.6 % 12/13/23 05:22 [place] % (Auto) 12.3 % 12/13/23 05:22 Eos % (Auto) 7.0 % 12/13/23 05:22 Baso % (Auto) 0.7 % 12/13/23 05:22 Neut # (Auto) 6.71 10^3/uL (1.8-7.7) 12/13/23 05:22 Lymph # (Auto) 0.9 10^3/uL (0.8-4.8) 12/13/23 05:22 [place] # (Auto) 1.2 10^3/uL (0.2-0.9) H 12/13/23 05:22 Eos # (Auto) 0.7 10^3/uL (0.0-0.8) 12/13/23 05:22 Baso # (Auto) 0.1 10^3/uL (0.0-0.1) 12/13/23 05:22 Nucleated RBC % (auto) 0 % 12/13/23 05:22 Nucleated RBCs # 0.0 /100WBC 12/13/23 05:22 ESR 31 mm/hr (0-10) H 12/04/23 16:40 PT 15.70 SECONDS (12.1-14.9) H 12/04/23 16:40 INR 1.21 (0.8-1.2) H 12/04/23 16:40 APTT 42.7 SECONDS (23.9-36.7) H 12/05/23 14:43 Sodium 140 mmol/L (136-145) 12/13/23 05:22 Potassium 4.7 mmol/L (3.5-5.1) 12/13/23 05:22 Chloride 111 mmol/L (98-107) H 12/13/23 05:22 Carbon Dioxide 21 mmol/L (22-29) L 12/13/23 05:22 Anion Gap 12.7 (5-19) 12/13/23 05:22 BUN 43 mg/dL (8-23) H 12/13/23 05:22 Creatinine 1.7 mg/dL (0.7-1.2) H 12/13/23 05:22 GFR Calculation Not Reportable 12/13/23 05:22 Glucose 28 mg/dL (65-115) L* 12/13/23 05:22 POC Glucose 164 mg/dL (70-110) H 12/13/23 08:03 Estimat Average Glucose 229 12/04/23 16:40 Hemoglobin A1c 9.6 % (4.0-6.0) H 12/04/23 16:40 Calculated Osmolality 297 mOsm/kg (285-295) H 12/13/23 05:22 Lactic Acid 3.2 mmol/L (0.5-2.2) H 12/04/23 16:40 Lactic Acid (Sepsis) 2.4 mmol/L (0.5-2.2) H 12/04/23 20:14 Calcium 8.5 mg/dL (8.5-10.5) 12/13/23 05:22 Magnesium 2.3 mg/dL (1.7-2.3) 12/12/23 03:33 Iron 25 ug/dL (59-158) L 12/09/23 05:00 TIBC 208 mcg/dl 12/09/23 05:00 % Saturation 12.0 % (20-50) L 12/09/23 05:00 Unsat Iron Binding 183 ug/dL (112-347) 12/09/23 05:00 Total Bilirubin 0.6 mg/dL (0.15-1.2) 12/13/23 05:22 AST 26 U/L (0-40) 12/13/23 05:22 ALT 22 U/L (0-41) 12/13/23 05:22 Alkaline Phosphatase 80 U/L (40-130) 12/13/23 05:22 C-Reactive Protein 31.5 mg/L (0.0-4.9) H 12/04/23 16:40 Total Protein 6.0 g/dL (6.6-8.7) L 12/13/23 05:22 Albumin 2.9 g/dL (3.5-5.2) L 12/13/23 05:22 Globulin 3.1 g/dL (1.3-4.6) 12/13/23 05:22 Triglycerides 98 mg/dL (0-150) 12/10/23 04:57 Cholesterol 133 mg/dL (0-200) 12/10/23 04:57 LDL Cholesterol, Calc 80 mg/dL (50-129) 12/10/23 04:57 Total VLDL Cholesterol 20 mg/dL (0-30) 12/10/23 04:57 HDL Cholesterol 33 mg/dL (60-100) L 12/10/23 04:57 Cholesterol/HDL Ratio 4.03 mg/dL (1.0-5.00) 12/10/23 04:57 Vitamin B12 1240 pg/mL (232-1245) 12/09/23 05:00 Folate > 20.0 ng/mL (4.5-32.2) 12/10/23 04:57 Procalcitonin 0.84 ng/mL (0-0.5) H 12/04/23 16:40 TSH 46.46 uIU/mL (0.27-4.20) H 12/09/23 05:00 Free T4 0.51 ng/dL (0.82-1.77) L 12/09/23 05:00 Free T3 1.2 PG/ML (2.0-4.4) L 12/09/23 05:00 Urine Color Yellow (Yellow) 12/04/23 23:50 Urine Appearance Clear (CLEAR) 12/04/23 23:50 Urine pH 5 (5-7) 12/04/23 23:50 Ur Specific [place] 1.015 (1.005-1.030) 12/04/23 23:50 Urine Protein 1+ (Negative) H 12/04/23 23:50 Urine Glucose (UA) 1+ (Normal) H 12/04/23 23:50 Urine Ketones Negative (Negative) 12/04/23 23:50 Urine Blood 3+ (Negative) H 12/04/23 23:50 Urine Nitrate Negative (Negative) 12/04/23 23:50 Urine Bilirubin Neg (Negative) 12/04/23 23:50 Urine Urobilinogen Neg mg/dL (Negative) 12/04/23 23:50 Ur Leukocyte Esterase Negative (Negative) 12/04/23 23:50 Urine RBC 0-4 /hpf (0-2) H 12/04/23 23:50 Urine WBC 0-4 /hpf (0-5) H 12/04/23 23:50 Ur Squamous Epith Cells 0-4 /hpf (0-5) H 12/04/23 23:50 Amorphous Sediment Not Reportable 12/04/23 23:50 Urine Bacteria 1+ /hpf (NONE) H 12/04/23 23:50 Vancomycin Trough 24.0 ug/mL (10-15) H 12/07/23 19:10 Random Vancomycin 19.7 ug/mL (20.0-40.0) L 12/08/23 18:32 Procedures Performed Peripheral angiogram: Conclusions Total occlusion of right SFA s/p successful revascularization with balloon angioplasty.. Right Superficial Femoral Artery was treated with Balloon. SFA was treated with a Balloon. Recommendations Patient will need amputation of right foot. Post procedure start dual antiplatelet therapy. Continue aspirin for now. Vitals Last Vital Signs Temp 97.8 F 12/13/23 03:17 Pulse 75 12/13/23 07:59 Resp 14 12/13/23 07:59 BP 153/71 12/13/23 07:59 Pulse Ox 95 12/13/23 07:59 O2 Del Method Room Air 12/13/23 07:59 O2 Flow Rate 6 12/10/23 12:50 Discharge Plan Discharge Patient Disposition: Xfer SNF Condition: Stable Prescriptions: New Unasyn 3 gram recon soln 3 g IV Q12H 8 Days Qty: 16 0RF atorvastatin 40 mg Tablet 20 mg PO BEDTIME Qty: 30 0RF bumetanide 1 mg Tablet 1 mg PO DAILY 30 Days Qty: 30 0RF Humalog KwikPen Insulin 100 unit/mL insulin pen See Protocol SUBCUT TID Qty: 15 0RF Protocol: Insulin Corrective High-Dose Regimen Condition: Fingerstick Blood Glucose Dose/Route: Insulin Units Condition: 141-180 mg/dl Dose/Route: 2 units/SQ Condition: 181-220 mg/dl Dose/Route: 4 units/SQ Condition: 221-260 mg/dl Dose/Route: 6 units/SQ Condition: 261-300 mg/dl Dose/Route: 8 units/SQ Condition: 301-350 mg/dl Dose/Route: 10 units/SQ Condition: 351-400 mg/dl Dose/Route: 12 units/SQ Condition: greater than 400 mg/dl Dose/Route: 14 units/SQ Continued duloxetine [Cymbalta] 60 mg capsule,delayed release(DR/EC) 60 mg PO BEDTIME (DME) FreeStyle Marisela 14 Day Sensor Kit See Rx Instructions .ROUTE .MEDSUPPLY Qty: 1 Rx Instructions: As directed cholecalciferol (vitamin D3) 25 mcg (1,000 unit) capsule 25 mcg PO QAM sertraline 50 mg tablet 50 mg PO QAM levothyroxine 125 mcg tablet 125 mcg PO DAILY Vit B-12 tablet 1,000 mcg PO DAILY (DME) Diabetic shoes with 3 pair of inserts See Rx Instructions .Route .MEDSUPPLY Qty: 1 0RF Rx Instructions: As directed by HOME multivitamin Tablet 1 tab PO QAM Jardiance 25 mg tablet 25 mg PO QAM hydrocodone-acetaminophen 5-325 mg tablet 1 tab PO Q6H PRN (Reason: pain) Qty: 14 0RF tamsulosin [Flomax] 0.4 mg capsule 0.8 mg PO BEDTIME Qty: 14 0RF Coreg 3.125 mg tablet 3.125 mg PO BID Rx Instructions: must administer with a meal/food ferrous sulfate [Iron (ferrous sulfate)] 325 mg (65 mg iron) Tablet 325 mg PO DAILY clopidogrel 75 mg Tablet 75 mg PO DAILY Qty: 90 0RF aspirin 81 mg Tablet,Delayed Release (Dr/Ec) 81 mg PO DAILY Qty: 90 2RF Changed Lantus Solostar U-100 Insulin 100 unit/mL (3 mL) Insulin Pen 10 unit SUBCUT QPM Qty: 15 0RF Discontinued metolazone 5 mg tablet 5 mg PO DAILY losartan 50 mg tablet 50 mg PO DAILY bumetanide 1 mg Tablet 3 mg PO DAILY potassium chloride 20 mEq tablet extended release 20 meq PO BID Qty: 20 0RF Discharge Orders: Discharge Order (Routine); Ordered 12/13/23 Ordered By: Carlton Simpson Referrals: [facility] [Outside] Rowdy Sheldon DO [Primary Care Provider] - 4-7 days Garrick Duggan DPM [Physician] - 12/18/23 9:00 am Ama Garcia FNP [Nurse Practitioner] - 12/24/23 2:30 pm Discharge Diet: Cardiac and Diabetic Discharge Activity: Resume usual activity and Increase activity as tolerated Patient Instructions: Peripheral Vascular Stent Placement (DC), Peripheral Vascular Angioplasty (DC), Opioid Safety, Post Angiogram Home Care Instructions Patient's Health Concerns: Wound care orders from Dr. Duggan for right foot. Please perform once daily dressing change as follows: * Betadine wet-to-dry directly to the right foot incision * 4 x 4 gauze * 4 inch Kerlix * 4 and 6 inch cast padding at foot and leg * Posterior splint * Benoit wrap Patient has scheduled follow-up with Dr. Duggan for right foot evaluation in podiatry clinic [facility] December 18 2023 at 9:00 AM. Complete the course of antibiotics with Unasyn till 12/19. While on above antibiotic treatment obtain weekly CBC and CMP and fax to ID clinic for review. Please remove the PICC line after completion of IV antibiotic course. Weekly PICC line dressing changes. Discharge Attestations Time Spent in Discharge Care*: greater than 30 min Specific Discharge Activities: educating patient, discussing with pcp/other providers, discussing with field nurse case manager/social workers/dc planners, documenting/other paperwork and evaluating patient/reviewing data Status at Discharge: Cognitive status at discharge: mildly impaired cognition , Behavioral status at discharge: cooperative , Functional status at discharge: uses cane/walker , Overall status at discharge: patient is progressing back to baseline Quality Metrics Clinical Quality Measures [ No reported AMI, CVA or VTE this stay] Coding Level of Care Code 50757 Total time (in minutes) for Discharge: 60 Diagnoses EZEQUIEL (acute kidney injury) N17.9 CKD (chronic kidney disease) N18.9
[2023-12-13] MEDS: aspirin 81 mg EC Tablet PO (09:15)
[2023-12-13] MEDS: levothyroxine 125 mcg Tablet PO (09:16)
[2023-12-13] MEDS: bumetanide 1 mg Tablet PO (09:17)
[2023-12-13] MEDS: carvedilol 3.125 mg Tablet PO (09:18)
[2023-12-13] MEDS: pantoprazole DR 40 mg Tablet PO (09:18)
[2023-12-13] MEDS: ampicillin-sulbactam 3 GM in sodium chloride 0.9% (plus) 50 ML IV (09:19)
[2023-12-13 10:20] LABS: SARS Covid-2 Antigen negative (Negative)
--- NOTE | 2023-12-13 10:34 | PC.NURSE ---
This nurse called [facility] and gave report to nurse Carreno. All questions answered and addressed.
[2023-12-13 11:31] LABS: Glucose Point of Care 137 mg/dL (70-110)
== END 2023-12-13 11:32 | disposition skilled nursing facility (03) | DRG 854 ==
LOC: ER 18:05 → MEDSURG 19:31 → CSU 12-05 10:42 → MEDSURG 12-12 20:34
PROVIDERS: Emergency Medicine; Internal Medicine; Podiatrist Foot & Ankle Surgery; Admitting Provider Internal Medicine; Emergency Provider Emergency Medicine; PCP Electrodiagnostic Medicine; Visit Provider Student in an Organized Health Care Education/Training Program
PROC: 047K3ZZ Dilation of Right Femoral Artery, Percutaneous Approach (ICD-10-PCS; principal; 2023-12-05 10:10)
PROC: 047K3ZZ Dilation of Right Femoral Artery, Percutaneous Approach (ICD-10-PCS; 2023-12-05 10:10)
PROC: 0Y6M0Z9 Detachment at Right Foot, Partial 1st Ray, Open Approach (ICD-10-PCS; CPT 28805; principal; 2023-12-06 07:00)
PROC: 0JBQ0ZZ Excision of Right Foot Subcutaneous Tissue and Fascia, Open Approach (ICD-10-PCS; CPT 13160; principal; 2023-12-10 12:00)
DX: A41.9 Sepsis, unspecified organism (principal); D62 Acute posthemorrhagic anemia; E11.52 Type 2 diabetes mellitus with diabetic peripheral angiopathy with gangrene; M86.671 Other chronic osteomyelitis, right ankle and foot; E87.20 Acidosis, unspecified; N17.9 Acute kidney failure, unspecified; I42.9 Cardiomyopathy, unspecified; I82.411 Acute embolism and thrombosis of right femoral vein; L03.115 Cellulitis of right lower limb; R65.20 Severe sepsis without septic shock; E11.649 Type 2 diabetes mellitus with hypoglycemia without coma; E11.65 Type 2 diabetes mellitus with hyperglycemia; E11.69 Type 2 diabetes mellitus with other specified complication; E11.42 Type 2 diabetes mellitus with diabetic polyneuropathy; E11.22 Type 2 diabetes mellitus with diabetic chronic kidney disease; I12.9 Hypertensive chronic kidney disease with stage 1 through stage 4 chronic kidney disease, or unspecified chronic kidney disease; N18.9 Chronic kidney disease, unspecified; E78.5 Hyperlipidemia, unspecified; I48.0 Paroxysmal atrial fibrillation; N40.0 Benign prostatic hyperplasia without lower urinary tract symptoms; N14.11 Contrast-induced nephropathy; T50.8X5A Adverse effect of diagnostic agents, initial encounter; E03.9 Hypothyroidism, unspecified; B95.2 Enterococcus as the cause of diseases classified elsewhere; H91.90 Unspecified hearing loss, unspecified ear; J44.9 Chronic obstructive pulmonary disease, unspecified; E66.9 Obesity, unspecified; Z68.33 Body mass index [BMI] 33.0-33.9, adult; Z11.52 Encounter for screening for COVID-19; Z79.82 Long term (current) use of aspirin; Z79.02 Long term (current) use of antithrombotics/antiplatelets; Z79.4 Long term (current) use of insulin; Z79.01 Long term (current) use of anticoagulants; I25.2 Old myocardial infarction; Z79.84 Long term (current) use of oral hypoglycemic drugs; Z87.891 Personal history of nicotine dependence; Z86.73 Personal history of transient ischemic attack (TIA), and cerebral infarction without residual deficits; Z95.3 Presence of xenogenic heart valve
CPT/HCPCS: 36415; 36416; 36573; 36592; 37224; 71045; 73590; 73630; 75710; 80048; 80053; 80061; 80202; 81001; 82607; 82746; 82962; 83036; 83540; 83550; 83605; 83735; 84145; 84439; 84443; 84481; 85025; 85347; 85610; 85651; 85730; 86140; 87040; 87077; 87150; 87186; 87205; 87426; 88307; 88311; 90471; 90715; 93005; 93926; 96365; 96367; 96372; 96375; 96376; 97110; 97162; 97165; 97530; 97535; 99152; 99153; 99213; 99283; 99285; C1725; C1769; C1887; C1894; J0295; J1644; J1815; J1940; J2250; J2270; J2405; J2543; J2704; J3010; J3370; J3490; J7030; J7120; J7799; Q3014; Q9967

== ENCOUNTER → 2023-12-18 08:45 | Outpatient (BNVA) | payer MEDICARE, SELFPAY | PROVIDERS: PCP Electrodiagnostic Medicine; Visit Provider Podiatrist Foot & Ankle Surgery | DX: L97.522 Non-pressure chronic ulcer of other part of left foot with fat layer exposed; Z89.431 Acquired absence of right foot; E11.42 Type 2 diabetes mellitus with diabetic polyneuropathy; E11.621 Type 2 diabetes mellitus with foot ulcer; Z79.4 Long term (current) use of insulin | CPT/HCPCS: 11042 ==

== ENCOUNTER → 2023-12-26 14:17 | Outpatient (BNVA) | payer MEDICARE, SELFPAY | PROVIDERS: PCP Electrodiagnostic Medicine; Visit Provider Podiatrist Foot & Ankle Surgery | DX: Z98.890 Other specified postprocedural states (principal); L97.522 Non-pressure chronic ulcer of other part of left foot with fat layer exposed; Z89.431 Acquired absence of right foot; E11.42 Type 2 diabetes mellitus with diabetic polyneuropathy; E11.621 Type 2 diabetes mellitus with foot ulcer; Z79.4 Long term (current) use of insulin | CPT/HCPCS: 99213 ==

== ENCOUNTER 2024-01-05 19:16 | Inpatient (IN) | payer MEDICARE, SELFPAY ==
[2024-01-05 19:19] VITALS: BP 133/43; PULSE 87; RESP 20; TEMP 37.3; O2SAT 94; BMI 33.0
--- NOTE | 2024-01-05 19:39 | PC.NURSE ---
Pt's caregiver reports pt took an extra bumetanide and an extra potassium today as well
--- NOTE | 2024-01-05 19:55 | ECG_ITS ---
[facility] Test Date: 2024-01-05 Pat Name: Surendra Roland Department: Room: Gender: Male Calibrator Barometers: : 1950 Requested By: Sukhdev Reynolds Order Number: [id number] Denins MD: Nelson Garcia M.D. Measurements Intervals Metaline Rate: 66 P: 0 MD: 0 QRS: 62 QRSD: 97 T: 142 QT: 414 QTc: 436 Interpretive Statements ATRIAL FIBRILLATION NONSPECIFIC ST & T-WAVE ABNORMALITY Compared to ECG 12/04/2023 17:07:45 Possible ischemia no longer present T-wave abnormality still present Electronically Signed On 01-06-2024 15:39:50 CDT by Nelson Garcia M.D. [email or web address]
--- NOTE | 2024-01-05 19:56 | XRR_ITS ---
PROCEDURE INFORMATION: Exam: XR Chest Exam date and time: 01/05/2024 8:33 PM Age: 73 years old Clinical indication: Shortness of breath; Prior surgery; Surgery date: 6+ months; Patient HX: Respiratory distress; SOB; HX cabg TECHNIQUE: Imaging protocol: Radiologic exam of the chest. Views: 1 view. COMPARISON: CR XR chest 1V portable [id number] 12/11/2023 8:06 AM FINDINGS: Tubes, catheters and devices: There are sternal wires consistent with previous sternotomy incision. Wires. Lungs: Hypoventilation. Increased right lung peribronchial vascular indistinctness which can be seen with pulmonary edema. Pleural spaces: No pneumothorax, significant pleural effusion. Heart/Mediastinum: Mild cardiomegaly. Bones/joints: Unremarkable. XR/XR chest 1V portable [id number] IMPRESSION: Mild pulmonary edema, improved from prior imaging dated 12/11/2023.
--- NOTE | 2024-01-05 20:01 | ED_ITS ---
HPI - SOB/Dyspnea 2 General: Chief Complaint: Shortness of Breath/Dyspnea Stated Complaint: RESP. DISTRESS Time Seen by Provider: 01/05/24 19:33 History of Present Illness: HPI Narrative: 73-year-old gentleman with a history of congestive heart failure. He had a recent prolonged admission with multiple medical problems including heart failure, diabetes, acute kidney injury, partial foot amputation. He was in the [place] [facility] for a while, and checked himself out. He arrives with increasing shortness of breath over the course of the day. His animal caretaker is with him and notes that he had a 40 pound weight gain over the past month or so. He relates that he has been taking his diuretic appropriately. He is usually on 2 L of oxygen at home. He has had a nonproductive cough. He became acutely short of breath today on his 2 L, currently improved on 4 L. His blood sugar according to EMS is in the 400s. Associated symptoms: Deny abdominal pain, chest pain, fever(s), nausea, palpitations or vomiting Review of Systems 2 Const: Denies: fever(s) or chills ENMT: Denies: throat pain Card: Denies: chest pain or palpitations Resp: Reports: dyspnea and non-productive cough GI: Denies: abdominal pain, nausea or vomiting Skin/Breast: Reports: skin pain and skin swelling PFS ED 2 PFSH: Medical History (Updated 01/05/24 @ 22:46 by Sukhdev Mckeon DO) Contrast-induced nephropathy Abscess PVD (peripheral vascular disease) 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 on 07/21/2021 Benign prostatic hyperplasia CKD (chronic kidney disease) Peripheral arterial disease Limb ischemia Dyslipidemia Osteomyelitis of foot Diabetic wet gangrene of the foot Diabetes EZEQUIEL (acute kidney injury) Non-pressure chronic ulcer of other part of left foot with fat layer exposed Cardiomyopathy Bradycardia Aortic valve disease 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 mellitus MSSA (methicillin susceptible Staphylococcus aureus) infection Gangrene Acute hypokalemia Osteomyelitis of toe of left foot History of nonmelanoma skin cancer Atrial fibrillation Paroxysmal Chronic anticoagulation Xarelto Hypertensive urgency NSTEMI (non-ST elevated myocardial infarction) Congestive heart failure Anticoagulation adequate with anticoagulant therapy Xarelto Varicose vein of leg Obesity HTN (hypertension) Diabetes TIA (transient ischemic attack) Surgical History S/P aortic valve replacement with bioprosthetic valve S/P cholecystectomy S/P cataract extraction S/P AVR (aortic valve replacement) Bioprosthetic, bovine Family History Father Diabetes Hypertension Grandfather Diabetes PATERNAL Hypertension PATERNAL Social History Smoking and tobacco/nicotine status: former use of tobacco/nicotine Alcohol intake: former Substance/Drug Use: never Marital status: / service: No Current occupational status: retired Current occupation: retired from [employer] Physical Exam 2 Const: GENERAL APPEARANCE: cooperative, ill appearing (Mildly) and frail appearing HENMT: COMMON NORMALS: normocephalic HEAD & SCALP: normocephalic FACE & SINUS: normal facial exam Eye: COMMON NORMALS: Equal, round and reactive pupils present and EOMs intact bilaterally PUPIL: Yes Equal, round and reactive pupils present Chest: CHEST: Yes Symmetrical chest wall rise Resp: EFFORT & INSPECTION: Yes tachypneic AUSCULTATION: rales Cardio: COMMON NORMALS: regular rate and regular rhythm RATE: regular rate RHYTHM: regular rhythm GI: COMMON NORMALS: Normal to inspection, nondistended, normoactive bowel sounds present and Soft to palpation PALPATION: Yes Soft to palpation Course 2 Vital Signs: Vital signs: Vital Signs Temperature 99.1 F 01/05/24 19:19 Pulse Rate 71 01/05/24 20:55 Respiratory Rate 16 01/05/24 20:55 Blood Pressure 139/37 01/05/24 20:55 Pulse Oximetry 94 01/05/24 20:55 Oxygen Delivery Me thod Nasal Cannula 01/05/24 20:55 Oxygen Flow Rate 4 01/05/24 20:55 MDM - SOB/Dyspnea Medical Decision Making 73-year-old gentleman who was extremely short of breath at home, with increased oxygen demand here, and lower extremity swelling bilaterally. His BNP is over 20,000. Chest x-ray shows pulmonary edema with small right-sided effusion. White blood cell count is 12.8, with a lactic acidosis of 6.8, which is strange. He is covered with antibiotics for this. Urinalysis is negative. Respiratory panel is pending. He does have a temperature of 99.1. He will be admitted for hypoxic respiratory failure with pulmonary edema and heart failure. Lab Data 01/05/24 18:56 01/05/24 18:56 Labs/Radiology: Radiology Impressions Chest X-Ray 01/05/24 19:56 IMPRESSION: Mild pulmonary edema, improved from prior imaging dated 12/11/2023. Laboratory Results WBC 12.80 10^3/uL (3.29-11.43) H 01/05/24 18:56 RBC 4.26 10^6/uL (3.85-5.65) 01/05/24 18:56 Hgb 12.00 g/dL (11.27-16.99) 01/05/24 18:56 Hct 40.0 % (37-53) 01/05/24 18:56 MCV 93.9 fl (82-101) 01/05/24 18:56 MCH 28.2 pg (27-33) 01/05/24 18:56 MCHC 30.0 g/dL (30-55) 01/05/24 18:56 RDW 18.8 % (12.1-15.1) H 01/05/24 18:56 Plt Count 176 10^3/cmm (157-399) 01/05/24 18:56 MPV 11.2 fL (7.4-10.4) H 01/05/24 18:56 Neut % (Auto) 91.9 % 01/05/24 18:56 Lymph % (Auto) 1.9 % 01/05/24 18:56 Rankin % (Auto) 4.7 % 01/05/24 18:56 Eos % (Auto) 0.5 % 01/05/24 18:56 Baso % (Auto) 0.5 % 01/05/24 18:56 Neut # (Auto) 11.77 10^3/uL (1.8-7.7) H 01/05/24 18:56 Lymph # (Auto) 0.2 10^3/uL (0.8-4.8) L 01/05/24 18:56 Rankin # (Auto) 0.6 10^3/uL (0.2-0.9) 01/05/24 18:56 Eos # (Auto) 0.1 10^3/uL (0.0-0.8) 01/05/24 18:56 Baso # (Auto) 0.1 10^3/uL (0.0-0.1) 01/05/24 18:56 Nucleated RBC % (auto) 0 % 01/05/24 18:56 Nucleated RBCs # 0.0 /100WBC 01/05/24 18:56 PT 17.50 SECONDS (12.1-14.9) H 01/05/24 18:56 INR 1.39 (0.8-1.2) H 01/05/24 18:56 Specimen Type Arterial 01/05/24 20:11 Sample Site Radial, right 01/05/24 20:11 ABG pH 7.46 (7.35-7.45) H 01/05/24 20:11 ABG pCO2 32.6 mmHg (35-45) L 01/05/24 20:11 ABG pO2 61.7 mmHg (80.0-100.0) L 01/05/24 20:11 ABG PO2/FiO2 Ratio 0 01/05/24 20:11 ABG HCO3 23.4 mmol/L (22-26) 01/05/24 20:11 ABG Base Excess 0.1 mmol/L (-2.0-2.0) 01/05/24 20:11 Sam Test Pos 01/05/24 20:11 Hematocrit 34.9 % (42-52) L 01/05/24 20:11 Hgb O2 Saturation 92.1 % (95-100) L 01/05/24 20:11 Carboxyhemoglobin 2.2 %THgb (0.4-20.1) 01/05/24 20:11 Methemoglobin 0.2 % (0.4-1.5) L 01/05/24 20:11 Total Hemoglobin 11.4 g/dL (14-18) L 01/05/24 20:11 O2 Delivery Device Nc 01/05/24 20:11 O2 Liters/Min 4.0 % 01/05/24 20:11 FiO2 36.0 % 01/05/24 20:11 Culinary Chef ID Ed 01/05/24 20:11 Sodium 137 mmol/L (136-145) 01/05/24 18:56 Potassium 4.6 mmol/L (3.5-5.1) 01/05/24 18:56 Chloride 98 mmol/L (98-107) 01/05/24 18:56 Carbon Dioxide 22 mmol/L (22-29) 01/05/24 18:56 Anion Gap 21.6 (5-19) H 01/05/24 18:56 BUN 30 mg/dL (8-23) H 01/05/24 18:56 Creatinine 2.1 mg/dL (0.7-1.2) H 01/05/24 18:56 GFR Calculation Not Reportable 01/05/24 18:56 Glucose 342 mg/dL (65-115) H 01/05/24 18:56 Calculated Osmolality 304 mOsm/kg (285-295) H 01/05/24 18:56 Lactic Acid 6.8 mmol/L (0.5-2.2) H* 01/05/24 18:56 Calcium 8.4 mg/dL (8.5-10.5) L 01/05/24 18:56 Total Bilirubin 1.7 mg/dL (0.15-1.2) H 01/05/24 18:56 AST 23 U/L (0-40) 01/05/24 18:56 ALT 19 U/L (0-41) 01/05/24 18:56 Alkaline Phosphatase 139 U/L (40-130) H 01/05/24 18:56 NT-Pro-B Natriuret Pep 75780 pg/mL (0-125) H 01/05/24 18:56 Total Protein 6.3 g/dL (6.6-8.7) L 01/05/24 18:56 Albumin 3.2 g/dL (3.5-5.2) L 01/05/24 18:56 Globulin 3.1 g/dL (1.3-4.6) 01/05/24 18:56 Urine Color Yellow (Yellow) 01/05/24 19:30 Urine Appearance Clear (CLEAR) 01/05/24 19:30 Urine pH 5 (5-7) 01/05/24 19:30 Ur Specific Oakley 1.010 (1.005-1.030) 01/05/24 19:30 Urine Protein Neg (Negative) 01/05/24 19:30 Urine Glucose (UA) 4+ (Normal) H 01/05/24 19:30 Urine Ketones Negative (Negative) 01/05/24 19:30 Urine Blood Neg (Negative) 01/05/24 19:30 Urine Nitrate Negative (Negative) 01/05/24 19:30 Urine Bilirubin Neg (Negative) 01/05/24 19:30 Urine Urobilinogen Neg mg/dL (Negative) 01/05/24 19:30 Ur Leukocyte Esterase Negative (Negative) 01/05/24 19:30 All radiology interpretation(s) finalized by discharge Discharge Plan Discharge Patient Disposition: Placed in Observation Clinical Impression: Acute respiratory failure with hypoxia, CHF exacerbation, Lactic acidosis Condition: Stable Prescriptions: No Action duloxetine [Cymbalta] 60 mg capsule,delayed release(DR/EC) 60 mg PO BEDTIME (DME) FreeStyle Marisela 14 Day Sensor Kit See Rx Instructions .ROUTE .MEDSUPPLY Qty: 1 Rx Instructions: As directed cholecalciferol (vitamin D3) 25 mcg (1,000 unit) capsule 25 mcg PO QAM sertraline 50 mg tablet 50 mg PO QAM levothyroxine 125 mcg tablet 125 mcg PO DAILY Vit B-12 tablet 1,000 mcg PO DAILY (DME) Diabetic shoes with 3 pair of inserts See Rx Instructions .Route .MEDSUPPLY Qty: 1 0RF Rx Instructions: As directed by HOME multivitamin Tablet 1 tab PO QAM Jardiance 25 mg tablet 25 mg PO QAM hydrocodone-acetaminophen 5-325 mg tablet 1 tab PO Q6H PRN (Reason: pain) Qty: 14 0RF atorvastatin 40 mg Tablet 20 mg PO BEDTIME Qty: 30 0RF bumetanide 1 mg Tablet 1 mg PO DAILY 30 Days Qty: 30 0RF Humalog KwikPen Insulin 100 unit/mL insulin pen See Protocol SUBCUT TID Qty: 15 0RF Protocol: Insulin Corrective High-Dose Regimen Condition: Fingerstick Blood Glucose Dose/Route: Insulin Units Condition: 141-180 mg/dl Dose/Route: 2 units/SQ Condition: 181-220 mg/dl Dose/Route: 4 units/SQ Condition: 221-260 mg/dl Dose/Route: 6 units/SQ Condition: 261-300 mg/dl Dose/Route: 8 units/SQ Condition: 301-350 mg/dl Dose/Route: 10 units/SQ Condition: 351-400 mg/dl Dose/Route: 12 units/SQ Condition: greater than 400 mg/dl Dose/Route: 14 units/SQ Lantus Solostar U-100 Insulin 100 unit/mL (3 mL) Insulin Pen 10 unit SUBCUT QPM Qty: 15 0RF tamsulosin [Flomax] 0.4 mg capsule 0.8 mg PO BEDTIME Qty: 14 0RF Coreg 3.125 mg tablet 3.125 mg PO BID Rx Instructions: must administer with a meal/food ferrous sulfate [Iron (ferrous sulfate)] 325 mg (65 mg iron) Tablet 325 mg PO DAILY clopidogrel 75 mg Tablet 75 mg PO DAILY Qty: 90 0RF aspirin 81 mg Tablet,Delayed Release (Dr/Ec) 81 mg PO DAILY Qty: 90 2RF Referrals: Rowdy Sheldon DO [Primary Care Provider] - Coding Level of Care Code ED Operations Support Representative for Era Hung
--- NOTE | 2024-01-05 20:07 | PC.NURSE ---
Pt on bedside cardiac nurse specialist
[2024-01-05 20:08] VITALS: PULSE 72; RESP 16; O2SAT 97
[2024-01-05] MEDS: ipratropium-albuterol 3 mL Neb INHALATION (20:12)
[2024-01-05 20:17] LABS: Basophils # 0.1 10^3/uL (0.0-0.1); Basophils % 0.5 %; Eosinophils # 0.1 10^3/uL (0.0-0.8); Eosinophils % 0.5 %; Lymphocytes # 0.2 10^3/uL (0.8-4.8); Lymphocytes % 1.9 %; Mean Corpuscular Hemoglobin 28.2 pg (27-33); Mean Corpuscular Volume 93.9 fl (82-101); Mean Platelet Volume 11.2 fL (7.4-10.4); Monocytes # 0.6 10^3/uL (0.2-0.9); Monocytes % 4.7 %; Neutrophils # 11.77 10^3/uL (1.8-7.7); Neutrophils % 91.9 %; Nucleated Red Blood Cells % 0 %; Platelet Count 176 10^3/cmm (157-399); Red Blood Count 4.26 10^6/uL (3.85-5.65); Red Cell Distribution Width 18.8 % (12.1-15.1)
[2024-01-05 20:21] LABS: ABG PCO2 32.6 mmHg (35-45); ABG PH Result 7.46 (7.35-7.45); Arterial Blood Gas Hematocrit 34.9 % (42-52); Base Excess ABG 0.1 mmol/L (-2.0-2.0); Blood Gas Allen Test Pos; Blood Gas Sample Type Arterial; Carboxyhemoglobin 2.2 %THgb (0.4-20.1); HCO3 ABG 23.4 mmol/L (22-26); HGB O2 Sat 92.1 % (95-100); Methemoglobin 0.2 % (0.4-1.5); PO2 ABG 61.7 mmHg (80.0-100.0); Total Hemoglobin 11.4 g/dL (14-18)
[2024-01-05 20:22] LABS: Blood Gas Operator Identificat ED; Blood Gas Sample Site Radial, right; Oxygen Device NC; PO2 FiO2 Ratio Arterial Blood 0
[2024-01-05 20:23] LABS: INR 1.39 (0.8-1.2)
[2024-01-05 20:24] VITALS: PULSE 75
[2024-01-05 20:43] LABS: Alanine Aminotransferase 19 U/L (0-41); Albumin Level 3.2 g/dL (3.5-5.2); Alkaline Phosphatase 139 U/L (40-130); Anion Gap 21.6 (5-19); Aspartate Amino Transferase 23 U/L (0-40); Blood Urea Nitrogen 30 mg/dL (8-23); Calcium 8.4 mg/dL (8.5-10.5); Carbon Dioxide 22 mmol/L (22-29); Chloride 98 mmol/L (98-107); Creatinine Clr Calc Pharmacy 37.3347; Globulin 3.1 g/dL (1.3-4.6); Glucose 342 mg/dL (65-115); NT Pro B Type Natriuretic Pept 28275 pg/mL (0-125); Osmolality Calculated 304 mOsm/kg (285-295); Potassium 4.6 mmol/L (3.5-5.1); Sodium 137 mmol/L (136-145); Total Bilirubin 1.7 mg/dL (0.15-1.2); Total Protein 6.3 g/dL (6.6-8.7)
[2024-01-05 20:45] LABS: Lactic Sepsis W/Reflex 6.8 mmol/L (0.5-2.2)
[2024-01-05 20:55] VITALS: BP 139/37; PULSE 71; RESP 16; O2SAT 94
[2024-01-05] MEDS: piperacillin-tazobactam 4.5 GM in sodium chloride 0.9% (plus) 50 ML IV (21:02)
--- NOTE | 2024-01-05 21:40 | P.HP_ITS ---
Providers/Chief Complaint 2 Primary Care Provider: Rowdy Sheldon DO Chief Complaint: RESP. DISTRESS History of Present Illness Surendra Roland is a 73 year old male with a past medical history significant for peripheral vascular disease, diabetic foot ulcer, chronic kidney disease, type 2 diabetes mellitus on insulin, bioprosthetic aortic valve replacement, and multiple other comorbidities who presents emergency department with shortness of breath x 2 to 3 days. Of note, patient was recently admitted from 12/04 to 12/13/23 for sepsis, Enterococcus faecalis bacteremia, gangrene of right foot, limb ischemia, osteomyelitis, chronic wounds, and acute kidney injury on chronic kidney disease. During that hospitalization he underwent revascularization with angioplasty and right foot TMA by podiatry. He was discharged to half-way facility. Patient recently checked himself out at the facility and returned home. He endorses associated symptoms of generalized malaise and fatigue with around a 30 pound weight gain. Denies fevers or chills. Exertion worsens symptoms. Rest improves. In the emergency department, patient was found to have hypoxia requiring 4 L. His prior baseline was 2 L. Labs revealed leukocytosis of 12.8, lactic acidosis of 6.8, and markedly elevated NT proBNP of 28,275. Patient was treated with diuresis and Zosyn. Review of Systems 2 Narrative: A complete review of systems was obtained and is negative except as stated in HPI. Medications/Allergies Home Medications Medication Instructions Recorded Confirmed Last Taken Type duloxetine 60 mg capsule,delayed 60 mg PO BEDTIME 02/22/20 12/26/23 12/03/23 History release (Cymbalta) empagliflozin 25 mg tablet 25 mg PO QAM 05/06/21 12/26/23 12/04/23 History (Jardiance) multivitamin 1 tab PO QAM 05/06/21 12/26/23 11/05/23 History cholecalciferol (vitamin D3) 25 25 mcg PO QAM 08/01/21 12/26/23 12/03/23 History mcg (1,000 unit) capsule flash glucose sensor (FreeStyle #1 ea 05/01/22 12/26/23 10/11/22 History Marisela 14 Day Sensor kit) sertraline 50 mg tablet 50 mg PO QAM 11/14/22 12/26/23 12/03/23 History Diabetic shoes with 3 pair of #1 ea 11/28/22 12/26/23 Unknown Rx inserts tamsulosin 0.4 mg capsule (Flomax) 0.8 mg (2 x 0.4 mg) PO BEDTIME #14 07/23/23 12/26/23 11/04/23 Rx caps Vit B-12 1,000 mcg PO DAILY 10/24/23 12/26/23 11/05/23 History carvedilol 3.125 mg tablet (Coreg) 3.125 mg PO BID 10/24/23 12/26/23 12/04/23 History levothyroxine 125 mcg tablet 125 mcg PO DAILY 10/24/23 12/26/23 12/03/23 History ferrous sulfate 325 mg (65 mg 325 mg PO DAILY 11/06/23 12/26/23 Unknown History iron) tablet (Iron (ferrous sulfate)) aspirin 81 mg tablet,delayed 81 mg PO DAILY #90 tabs 11/07/23 12/26/23 12/03/23 Rx release clopidogrel 75 mg tablet 75 mg PO DAILY #90 tabs 11/07/23 12/26/23 12/03/23 Rx hydrocodone 5 mg-acetaminophen 325 1 tab PO Q6H PRN pain #14 tabs 12/02/23 12/26/23 Unknown Rx mg tablet atorvastatin 40 mg tablet 20 mg (1/2 x 40 mg) PO BEDTIME #30 12/13/23 12/26/23 Unknown Rx tabs bumetanide 1 mg tablet 1 mg PO DAILY 30 days #30 tabs 12/13/23 12/26/23 Unknown Rx insulin glargine 100 unit/mL (3 10 unit (0.1 mL) SUBCUT QPM #15 mL 12/13/23 12/26/23 12/03/23 Rx mL) subcutaneous pen (Lantus Solostar U-100 Insulin) insulin lispro 100 unit/mL See Protocol SUBCUT TID #15 mL 12/13/23 12/26/23 Unknown Rx subcutaneous pen (Humalog KwikPen (U-100) Insulin) Allergies Allergy/AdvReac Type Severity Reaction Status Date / Time No Known Allergies Allergy Verified 12/26/23 14:21 PFSH Acute 2 PFSH: Medical History Contrast-induced nephropathy Abscess PVD (peripheral vascular disease) 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 on 07/21/2021 Benign prostatic hyperplasia CKD (chronic kidney disease) Peripheral arterial disease Limb ischemia Dyslipidemia Osteomyelitis of foot Diabetic wet gangrene of the foot Diabetes EZEQUIEL (acute kidney injury) Non-pressure chronic ulcer of other part of left foot with fat layer exposed Cardiomyopathy Bradycardia Aortic valve disease 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 mellitus MSSA (methicillin susceptible Staphylococcus aureus) infection Gangrene Acute hypokalemia Osteomyelitis of toe of left foot History of nonmelanoma skin cancer Atrial fibrillation Paroxysmal Chronic anticoagulation Xarelto Hypertensive urgency NSTEMI (non-ST elevated myocardial infarction) Congestive heart failure Anticoagulation adequate with anticoagulant therapy Xarelto Varicose vein of leg Obesity HTN (hypertension) Diabetes TIA (transient ischemic attack) Surgical History S/P aortic valve replacement with bioprosthetic valve S/P cholecystectomy S/P cataract extraction S/P AVR (aortic valve replacement) Bioprosthetic, bovine Family History Father Diabetes Hypertension Grandfather Diabetes PATERNAL Hypertension PATERNAL Social History Smoking and tobacco/nicotine status: former use of tobacco/nicotine Alcohol intake: former Substance/Drug Use: never Marital status: / service: No Current occupational status: retired Current occupation: retired from [employer] Vitals/I&O/Wt Last Vital Signs Temp 99.1 F 01/05/24 19:19 Pulse 71 01/05/24 20:55 Resp 16 01/05/24 20:55 BP 139/37 01/05/24 20:55 Pulse Ox 94 01/05/24 20:55 O2 Del Method Nasal Cannula 01/05/24 20:55 O2 Flow Rate 4 01/05/24 20:55 Weight last 48 hrs Weight 104.326 kg Physical Exam 2 Narrative: General: Patient is awake. Head: Normocephalic. Atraumatic. EOM intact. Hard of hearing. Neck: Elevated JVD. Cardiovascular: RRR. No gallops. No murmurs. 2+ pitting edema in bilateral lower extremities. Lungs: Breath sounds are diminished at bilateral bases. Faint crackles are present. No use of accessory muscles. On 4 L nasal cannula. Skin: No jaundice. No rashes. He has a chronic wound on the distal left foot. His right TMA site is covered with bandages. Abdomen: Normal bowel sounds, abdomen soft and nontender. Extremities: No cyanosis or clubbing. Wounds as above. Musculoskeletal: Appropriate muscle mass for demographic. Neurological: Moves all 4 extremities. No myoclonus. Data 01/05/24 18:56 01/05/24 18:56 Micro: Microbiology 01/05/24 20:29 Blood Culture - Preliminary Blood SPECIMEN COLLECTED 01/05/24 20:29 Blood Culture - Preliminary Blood SPECIMEN COLLECTED A&P Assessment and plan (1) CHF exacerbation: Acute on chronic heart failure with preserved ejection fraction exacerbation Echocardiogram from May 2023 showed LVEF of 45 to 50% Continue home beta-davi with Coreg Hold home Bumex Start IV Bumex 2 mg daily Strict I's and O's Daily weights Telemetry with continuous pulse oximetry (2) Lactic acidosis: Patient found to have significant lactic acidosis concerning for infection Blood cultures x 2; he was recently bacteremic at the end of November with Enterococcus faecalis Monitor foot wounds Follow cultures Procalcitonin backordered Status post Zosyn in the ED Start broad-spectrum antibiotics (3) Wounds, multiple: Bilateral foot wounds with history of right TMA on 12/09 Continue wound care (4) Diabetes: Type 2 diabetes mellitus on insulin, uncontrolled with hyperglycemia A1c 9.6 (12/04/2023) Continue long-acting insulin at 10 units at bedtime Sliding-scale insulin correction Avoid hypoglycemia Qualifiers: Diabetes mellitus complication detail: with other circulatory complications Diabetes mellitus complication status: with circulatory complication Diabetes mellitus doctor of naprapathic medicine insulin use: with fdc use D iabetes mellitus type: type 2 Qualified Code(s): E11.59 - Type 2 diabetes mellitus with other circulatory complications; Z79.4 - wood filler (current) use of insulin (5) Peripheral arterial disease: Continue DAPT with aspirin and Plavix Continue statin (6) Benign prostatic hyperplasia: Continue home Flomax Qualifiers: Lower urinary tract symptom presence: unspecified whether lower urinary tract symptoms present Qualified Code(s): N40.0 - Benign prostatic hyperplasia without lower urinary tract symptoms Plan DVT prophylaxis: Heparin CODE STATUS: Assume full code Attestations 2 Medical Necessity Statement*: Patient presents with shortness of breath, found to have heart failure exacerbation with expected hospitalization not to cross 2 midnights for diuresis and supportive care. Coding Level of Care Code Acute Code for Chg Fwd Diagnoses CHF exacerbation I50.9 Lactic acidosis E87.20 Wounds, multiple T07.XXXA Type 2 diabetes mellitus with other circulatory complication, with long-term current use of insulin E11.59; Z79.4 Diabetes mellitus complication detail: with other circulatory complications Diabetes mellitus complication status: with circulatory complication Diabetes mellitus fdc insulin use: with doctor of naprapathic medicine use Diabetes mellitus type: type 2 Peripheral arterial disease I73.9 Benign prostatic hyperplasia, unspecified whether lower urinary tract symptoms present N40.0 Lower urinary tract symptom presence: unspecified whether lower urinary tract symptoms present
[2024-01-05 21:45] LABS: Add Urine Microscopic? NO; Charge for UA Resulting for Rev
[2024-01-05 21:53] LABS: Bilirubin Urine Neg (Negative); Blood Urine Neg (Negative); Glucose Urine UA 4+ (Normal); Ketones Urine Negative (Negative); Leukocyte Esterase Urine Negative (Negative); Nitrate Urine Negative (Negative); Protein Urine Neg (Negative); Urine Appearance Clear (CLEAR); Urine Color Yellow (Yellow); Urobilinogen Urine Neg (Negative); pH Urine 5 (5-7)
[2024-01-05] MEDS: bumetanide 0.25 mg/mL SDV 10 mL 2 MG IVP (21:56)
[2024-01-05 22:00] VITALS: BP 141/41; PULSE 57; RESP 16; O2SAT 99
[2024-01-05 22:02] LABS: Reflex Lactate Order REFLEX LACTIC ORDERD
[2024-01-05 22:54] LABS: Lactic Acid level (Lactate) 3.3 mmol/L (0.5-2.2)
[2024-01-05 23:27] LABS: Adenovirus Not Detected (NOT DETECT); Chlamydia Pneumoniae Not Detected (NOT DETECT); Coronavirus 229E,HKU1,NL63,OC4 Not Detected (NOT DETECT); Human Metapneumovirus Not Detected (NOT DETECT); Human Rhinovirus/Enterovirus Detected (NOT DETECT); Influenza A Not Detected (NOT DETECT); Influenza A H1 Not Detected (NOT DETECT); Influenza A H1-2009 Not Detected (NOT DETECT); Influenza A H3 Not Detected (NOT DETECT); Influenza B Not Detected (NOT DETECT); Mycoplasma Pneumoniae Not Detected (NOT DETECT); Parainfluenza Virus Type 1 Not Detected (NOT DETECT); Parainfluenza Virus Type 2 Not Detected (NOT DETECT); Parainfluenza Virus Type 3 Not Detected (NOT DETECT); Parainfluenza Virus Type 4 Not Detected (NOT DETECT); Respiratory Syncytial Virus A Not Detected (NOT DETECT); Respiratory Syncytial Virus B Not Detected (NOT DETECT); SARS-COV-2 Not Detected (NOT DETECT)
[2024-01-05 23:53] VITALS: PULSE 55; RESP 16; O2SAT 94
[2024-01-06] VITALS (9 sets, daily range): BP systolic 115–148; BP diastolic 50–65; PULSE 52–60; RESP 17–19; TEMP 36.5–36.8; O2SAT 95–99
[2024-01-06 00:28] LABS: Glucose Point of Care 326 mg/dL (70-110)
[2024-01-06 00:59] LABS: Procalcitonin 0.78 ng/mL (0-0.5)
[2024-01-06 01:10] LABS: C Reactive Protein 56.6 mg/L (0.0-4.9)
[2024-01-06] MEDS: heparin 5,000 unit/mL INJ 1 mL 5000 UNIT SUBCUT ×2 (01:43→12:44)
[2024-01-06] MEDS: insulin lispro 100 unit/1 mL 12 UNIT SUBCUT (01:43)
[2024-01-06] MEDS: piperacillin-tazobactam 3.375 GM in sodium chloride 0.9% (plus) 50 ML IV ×3 (01:44→19:11)
[2024-01-06 02:55] LABS: Basophils % 0.3 %; Eosinophils % 0.2 %; Lymphocytes # 0.4 10^3/uL (0.8-4.8); Lymphocytes % 3.2 %; Mean Corpuscular HGB Conc 29.7 g/dL (30-55); Mean Corpuscular Hemoglobin 27.7 pg (27-33); Mean Corpuscular Volume 93.1 fl (82-101); Monocytes # 0.7 10^3/uL (0.2-0.9); Monocytes % 5.7 %; Neutrophils # 10.67 10^3/uL (1.8-7.7); Nucleated Red Blood Cells % 0 %; Platelet Count 126 10^3/cmm (157-399); Red Blood Count 3.76 10^6/uL (3.85-5.65); Red Cell Distribution Width 18.5 % (12.1-15.1); White Blood Count 11.85 10^3/uL (3.29-11.43)
[2024-01-06 03:15] LABS: Anion Gap 16.2 (5-19); Blood Urea Nitrogen 30 mg/dL (8-23); Calcium 8.4 mg/dL (8.5-10.5); Carbon Dioxide 25 mmol/L (22-29); Chloride 100 mmol/L (98-107); Glucose 260 mg/dL (65-115); Magnesium 2.1 mg/dL (1.7-2.3); Osmolality Calculated 301 mOsm/kg (285-295); Phosphorus 2.9 mg/dL (2.5-4.5); Potassium 3.2 mmol/L (3.5-5.1); Sodium 138 mmol/L (136-145)
[2024-01-06] MEDS: HYDROcodone-acetaminophen 5-325 mg Tablet 1 TAB PO ×2 (04:44→19:17)
[2024-01-06] MEDS: sertraline 50 mg Tablet PO (05:28)
[2024-01-06 06:36] LABS: Glucose Point of Care 150 mg/dL (70-110)
[2024-01-06] MEDS: insulin lispro 100 unit/1 mL SUBCUT ×4 (08:09→20:56)
[2024-01-06] MEDS: levothyroxine 125 mcg Tablet PO (08:10)
[2024-01-06] MEDS: carvedilol 3.125 mg Tablet PO (08:10)
[2024-01-06] MEDS: aspirin 81 mg EC Tablet PO (08:10)
[2024-01-06] MEDS: bumetanide 0.25 mg/mL SDV 10 mL 2 MG IVP ×2 (08:11→20:21)
[2024-01-06] MEDS: clopidogrel 75 mg Tablet PO (08:11)
[2024-01-06 10:58] LABS: Glucose Point of Care 171 mg/dL (70-110)
--- NOTE | 2024-01-06 13:13 | XRR_ITS ---
PROCEDURE INFORMATION: Exam: XR Left Foot Exam date and time: 01/06/2024 12:40 PM Age: 73 years old Clinical indication: Condition or disease; Other: Wound; Prior surgery; Surgery date: 6+ months; Surgery type: Toe amputation; Additional info: Infection, R. O osteomyelitis TECHNIQUE: Imaging protocol: Radiologic exam of the left foot. Views: 1 or 2 views. COMPARISON: CR XR foot LT min 3V* [id number] 06/28/2023 12:21 PM FINDINGS: Bones/joints: The patient is status post amputation of the 4th and 5th rays at the level of the mid shaft of the metatarsals. This is new from radiographs of 06/28/2023 No acute fracture or dislocation evident. No focal lytic process is visualized. Soft tissues: There is soft tissue swelling of the forefoot. XR/XR foot LT 2V [id number] IMPRESSION: Postsurgical findings and soft tissue swelling no acute osseous abnormality identified.
--- NOTE | 2024-01-06 14:21 | P.PN_ITS ---
Subjective 2 Subjective: Patient tells me he returned to the emergency room due to shortness of breath. The H&P notes that he had symptoms of generalized malaise and fatigue and a 30 pound weight gain. Patient did tell me that his leg swelling has just slowly increased. Vitals/I&O/Wt Last Vital Signs Temp 97.7 F 01/06/24 11:31 Pulse 60 01/06/24 11:31 Resp 19 H 01/06/24 11:31 BP 118/55 01/06/24 11:31 Pulse Ox 96 01/06/24 11:31 O2 Del Method Nasal Cannula 01/06/24 11:31 O2 Flow Rate 4 01/05/24 20:55 01/05/24 01/06/24 01/06/24 22:59 06:59 14:59 Intake Total 50 / 50 50 / 100 770 / 770 Output Total 250 / 250 1000 / 1000 Balance 50 / 50 -200 / -150 -230 / -230 Weight last 48 hrs Weight 105.551 kg Weight 105.551 kg Weight 105.551 kg Weight 104.326 kg Physical Exam 2 Narrative: Easily awakens. No acute distress Heart regular rate and rhythm normal S1-S2 without murmurs clicks gallops or rubs Lungs clear to auscultation anteriorly Abdomen there is a minimal amount of bleeding around the site of Lovenox injection no hematoma abdomen soft nontender nondistended positive bowel sounds Extremities: Diffuse anasarca up to the abdomen including scrotal sac Data 01/06/24 02:05 01/06/24 02:05 Micro: Microbiology 01/05/24 20:29 Blood Culture - Preliminary Blood Enterococcus faecalis 01/05/24 20:29 Blood Culture - Preliminary Blood Enterococcus faecalis A&P Assessment and plan (1) CHF exacerbation: Acute on chronic heart failure with preserved ejection fraction exacerbation Echocardiogram from May 2023 showed LVEF of 45 to 50% Hold beta-davi when in acute heart failure Patient was taking Bumex 1 mg p.o. twice daily. He was started on Bumex 2 mg IV daily will double the dose and increase to every 12 hours. Strict I's and O's Daily weights Telemetry with continuous pulse oximetry (2) Lactic acidosis: he was recently bacteremic at the end of November with Enterococcus faecalis, resulting in IV antibiotics and [facility] The left postsurgical wound is post to be changed every 3 days. He says it was changed on Saturday. Patient's blood cultures are again positive for Enterococcus sensitivities are pending. Continue Zosyn for now Follow cultures (3) Wounds, multiple: Bilateral foot wounds with history of right TMA on 12/09 Right foot wound appears that it may be deep Obtain right foot x-ray (4) Diabetes: Type 2 diabetes mellitus on insulin, uncontrolled with hyperglycemia A1c 9.6 (12/04/2023) Patient takes 10 units insulin at bedtime. With sliding scale insulin correction. 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 Diabetes mellitus complication status: with circulatory complication Diabetes mellitus complication detail: with other circulatory complications Qualified Code(s): E11.59 - Type 2 diabetes mellitus with other circulatory complications; Z79.4 - alf (current) use of insulin (5) Peripheral arterial disease: Continue DAPT with aspirin and Plavix Continue statin (6) Benign prostatic hyperplasia: Continue home Flomax Qualifiers: Lower urinary tract symptom presence: unspecified whether lower urinary tract symptoms present Qualified Code(s): N40.0 - Benign prostatic hyperplasia without lower urinary tract symptoms Plan DVT prophylaxis: Heparin CODE STATUS: Assume full code Attestations 2 Medical Necessity Statement*: Patient requires a 2 midnight stay due to bacteremia Coding Level of Care Code Acute Code for Chg Fwd Diagnoses CHF exacerbation I50.9 Lactic acidosis E87.20 Wounds, multiple T07.XXXA Type 2 diabetes mellitus with other circulatory complication, with long-term current use of insulin E11.59; Z79.4 Diabetes mellitus type: type 2 Diabetes mellitus half-way insulin use: with half-way use Diabetes mellitus complication status: with circulatory complication Diabetes mellitus complication detail: with other circulatory complications Peripheral arterial disease I73.9 Benign prostatic hyperplasia, unspecified whether lower urinary tract symptoms present N40.0 Lower urinary tract symptom presence: unspecified whether lower urinary tract symptoms present
--- NOTE | 2024-01-06 15:57 | P.CONIM_ITS ---
Providers/Reason For Consult 2 Consulting Physician/Specialty*: Garrick Duggan D.P.M. Reason for Consult*: Bilateral foot wound Attending Physician: Chevy Arellano DO Primary Care Provider: Rowdy Sheldon DO History of Present Illness History of Present Illness Surendra Roland is a 73 year old male admitted to the hospital service for CHF exacerbation, lactic acidosis, bilateral foot wounds and was noted to have positive blood cultures with Enterococcus. Partial left fifth ray resection secondary to osteomyelitis was performed 07/16/2023 and continues to progress slowly. Right transmetatarsal amputation performed 12/06/2023 with delayed closure of amputation site 12/10/2023. Patient completed 14 days of IV Unasyn. This was administered both at the hospital and then transition to [facility]. Has been performing Betadine wet-to-dry dressing changes on the right transmetatarsal potation site and superabsorbent foam dressing at left foot. Has posterior splint in place at the right lower extremity. Review of Systems 2 General: Reports: 10 or more systems reviewed and unremarkable except in HPI and below Const: Denies: fever(s) or chills Eyes: Denies: change in vision Card: Denies: chest pain or palpitations Resp: Denies: dyspnea or productive cough GI: Denies: abdominal pain, nausea or vomiting : Denies: flank pain Musc: Reports: extremity swelling, joint stiffness and deformity Skin/Breast: Reports: erythema, sores, changes in skin color, dry skin, nail changes and change in hair Neuro: Reports: numbness in extremities, sensory changes and difficulty walking Psych: Denies: suicidal ideation Endo: Denies: change in body appearance Lit/Lymph: Denies: tender lymph nodes Medications/Allergies Home Medications Medication Instructions Recorded Confirmed Last Taken Type duloxetine 60 mg capsule,delayed 60 mg PO BEDTIME 02/22/20 01/06/24 12/03/23 History release (Cymbalta) empagliflozin 25 mg tablet 25 mg PO QAM 05/06/21 01/06/24 12/04/23 History (Jardiance) multivitamin 1 tab PO QAM 05/06/21 01/06/24 11/05/23 History cholecalciferol (vitamin D3) 25 25 mcg PO QAM 08/01/21 01/06/24 12/03/23 History mcg (1,000 unit) capsule flash glucose sensor (FreeStyle #1 ea 05/01/22 01/06/24 10/11/22 History Marisela 14 Day Sensor kit) sertraline 50 mg tablet 50 mg PO QAM 11/14/22 01/06/24 12/03/23 History Diabetic shoes with 3 pair of #1 ea 11/28/22 01/06/24 Unknown Rx inserts tamsulosin 0.4 mg capsule (Flomax) 0.8 mg (2 x 0.4 mg) PO BEDTIME #14 07/23/23 01/06/24 11/04/23 Rx caps Vit B-12 1,000 mcg PO DAILY 10/24/23 01/06/24 11/05/23 History carvedilol 3.125 mg tablet (Coreg) 3.125 mg PO BID 10/24/23 01/06/24 12/04/23 History levothyroxine 125 mcg tablet 125 mcg PO DAILY 10/24/23 01/06/24 12/03/23 History ferrous sulfate 325 mg (65 mg 325 mg PO DAILY 11/06/23 01/06/24 Unknown History iron) tablet (Iron (ferrous sulfate)) aspirin 81 mg tablet,delayed 81 mg PO DAILY #90 tabs 11/07/23 01/06/24 12/03/23 Rx release clopidogrel 75 mg tablet 75 mg PO DAILY #90 tabs 11/07/23 01/06/24 12/03/23 Rx hydrocodone 5 mg-acetaminophen 325 1 tab PO Q6H PRN pain #14 tabs 12/02/23 01/06/24 Unknown Rx mg tablet atorvastatin 40 mg tablet 20 mg (1/2 x 40 mg) PO BEDTIME #30 12/13/23 01/06/24 Unknown Rx tabs insulin glargine 100 unit/mL (3 10 unit (0.1 mL) SUBCUT QPM #15 mL 12/13/23 01/06/24 12/03/23 Rx mL) subcutaneous pen (Lantus Solostar U-100 Insulin) insulin lispro 100 unit/mL See Protocol SUBCUT TID #15 mL 12/13/23 01/06/24 Unknown Rx subcutaneous pen (Humalog KwikPen (U-100) Insulin) bumetanide 1 mg tablet 1 mg PO 2XD 01/06/24 01/06/24 Unknown History Allergies Allergy/AdvReac Type Severity Reaction Status Date / Time No Known Allergies Allergy Verified 12/26/23 14:21 Current Medications Generic Name Dose Route Start Last Admin Trade Name Khadijah PRN Reason Stop Dose Admin Hydrocodone Bitart/Acetaminophen 1 tab 01/06/24 00:19 01/06/24 04:44 Hydrocodone-Acetaminophen 5-325 Mg Tablet PO 1 tab Q6H PRN Administration pain Aspirin 81 mg 01/06/24 09:00 01/06/24 08:10 Aspirin 81 Mg Ec Tablet PO 81 mg DAILY JYOTI Administration Carvedilol 3.125 mg 01/06/24 09:00 01/06/24 08:10 Carvedilol 3.125 Mg Tablet PO 3.125 mg BID JYOTI Administration Clopidogrel Bisulfate 75 mg 01/06/24 09:00 01/06/24 08:11 Clopidogrel 75 Mg Tablet PO 75 mg DAILY JYOTI Administration Heparin Sodium (Porcine) 5,000 unit 01/06/24 00:19 01/06/24 12:44 Heparin 5,000 Unit/Ml Inj 1 Ml SUBCUT 5,000 unit Q12H JYOTI Administration Piperacillin Sod/Tazobactam 50 mls @ 12.5 mls/hr 01/06/24 01:00 01/06/24 12:46 Sod 3.375 gm/ Sodium Chloride IV Infused Q8H JYOTI Infusion Insulin Human Lispro 0 unit 01/06/24 08:00 01/06/24 12:43 Insulin Lispro 100 Unit/1 Ml SUBCUT 2 unit WM&BEDTIME JYOTI Administration Protocol Levothyroxine Sodium 125 mcg 01/06/24 09:00 01/06/24 08:10 Levothyroxine 125 Mcg Tablet PO 125 mcg DAILY JYOTI Administration Sertraline HCl 50 mg 01/06/24 06:00 01/06/24 05:28 Sertraline 50 Mg Tablet PO 50 mg QAM JYOTI Administration PFSH Acute 2 PFSH: Medical History Contrast-induced nephropathy Abscess PVD (peripheral vascular disease) 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 on 07/21/2021 Benign prostatic hyperplasia CKD (chronic kidney disease) Peripheral arterial disease Limb ischemia Dyslipidemia Osteomyelitis of foot Diabetic wet gangrene of the foot Diabetes EZEQUIEL (acute kidney injury) Non-pressure chronic ulcer of other part of left foot with fat layer exposed Cardiomyopathy Bradycardia Aortic valve disease 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 mellitus MSSA (methicillin susceptible Staphylococcus aureus) infection Gangrene Acute hypokalemia Osteomyelitis of toe of left foot History of nonmelanoma skin cancer Atrial fibrillation Paroxysmal Chronic anticoagulation Xarelto Hypertensive urgency NSTEMI (non-ST elevated myocardial infarction) Congestive heart failure Anticoagulation adequate with anticoagulant therapy Xarelto Varicose vein of leg Obesity HTN (hypertension) Diabetes TIA (transient ischemic attack) Surgical History S/P aortic valve replacement with bioprosthetic valve S/P cholecystectomy S/P cataract extraction S/P AVR (aortic valve replacement) Bioprosthetic, bovine Family History Father Diabetes Hypertension Grandfather Diabetes PATERNAL Hypertension PATERNAL Social History Smoking and tobacco/nicotine status: former use of tobacco/nicotine Alcohol intake: former Substance/Drug Use: never Marital status: / service: No Current occupational status: retired Current occupation: retired from [employer] Vitals/I&O/Wt Last Vital Signs Temp 97.7 F 01/06/24 11:31 Pulse 60 01/06/24 11:31 Resp 19 H 01/06/24 11:31 BP 118/55 01/06/24 11:31 Pulse Ox 96 01/06/24 11:31 O2 Del Method Nasal Cannula 01/06/24 11:31 O2 Flow Rate 4 01/05/24 20:55 01/06/24 01/06/24 01/06/24 06:59 14:59 22:59 Intake Total 50 / 100 770 / 770 Output Total 250 / 250 1000 / 1000 Balance -200 / -150 -230 / -230 Weight last 48 hrs Weight 232 lb 11.2 oz Weight 232 lb 11.2 oz Weight 232 lb 11.2 oz Weight 230 lb Physical Exam 2 Narrative: Patient is alert and oriented ?3 and in no acute distress. The following is a focused bilateral lower extremity exam. VASCULAR: Dorsalis pedis palpable bilaterally. Posterior tibial arteries palpable. Diminished pedal hair growth bilaterally. NEUROLOGICAL: Protective sensation diminished to light touch. DERMATOLOGICAL: Betadine paint at the right transmetatarsal potation site, some stable eschar at the right transmetatarsal amputation site without fluctuance or bogginess, no purulence and no periwound erythema, no crepitus with soft tissue palpation. No purulence and no erythema. Grade 2 wound left foot plantar central foot measures 0.6 cm x 0.6 cm x 0.2 cm with fibrogranular base. No periwound erythema, warmth or drainage. Wound at the amputation site left fifth ray measures 1.1 cm x 0.3 cm x 0.2 cm with epithelialized margin and granular base. MUSCULOSKELETAL: Status post right transmetatarsal amputation. Left open for staged debridement and secondary closure. Data 01/06/24 02:05 01/06/24 02:05 Micro: Microbiology 01/05/24 20:29 Blood Culture - Preliminary Blood Enterococcus faecalis 01/05/24 20:29 Blood Culture - Preliminary Blood Enterococcus faecalis A&P Assessment and plan (1) Non-pressure chronic ulcer of other part of left foot with fat layer exposed: (2) Status post transmetatarsal amputation of right foot: (3) Peripheral arterial disease: (4) 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 mellitus: Plan Surendra Roland is a 73 year old male admitted to the hospital service for CHF exacerbation, lactic acidosis, bilateral foot wounds and was noted to have positive blood cultures with Enterococcus. Partial left fifth ray resection secondary to osteomyelitis was performed 07/16/2023 and continues to progress slowly. Right transmetatarsal amputation performed 12/06/2023 with delayed closure of amputation site 12/10/2023. Patient completed 14 days of IV Unasyn at last hospitalization discharge following transmetatarsal potation. Completion date December 20, 2023 Silver cell dressing applied to left foot wound which remains clinically stable. Betadine wet-to-dry dressing to right transmetatarsal amputation site, his right foot amputation site shows a progression of healing, decreased eschar, resolved erythema, no purulent drainage. X-ray left foot shows stable postoperative changes without any acute osseous abnormality taken December 06, 2023 X-ray right foot December 06, 2023 radiology report is pending, per my interpretation there is no soft tissue edema, no erosive or destructive changes at transmetatarsal amputation site. No plans for surgical intervention from podiatry at left or right foot during this hospitalization. Left foot wound is well-healing, right TMA amputation site is improved since his last evaluation. No cellulitis or lymphangitis at the lower extremities. It is possible that source of bacteremia is from right foot, recommend continuation of IV antibiotics and continued monitoring. Podiatry will follow and perform daily dressing changes during his hospitalization as well as follow-up outpatient once discharged. Consult Attestations 2 Medical Necessity Statement: Bilateral foot wound Coding Level of Care Code Acute Code for Chg Fwd Diagnoses Non-pressure chronic ulcer of other part of left foot with fat layer exposed L97.522 Status post transmetatarsal amputation of right foot Z89.431 Peripheral arterial disease I73.9 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 mellitus E11.42
--- NOTE | 2024-01-06 16:01 | XR_ITS ---
WS: [id number] Examination: XR foot RT min 3V* [id number] Reason for Exam: right foot wound Date: January 06, 2024 Comparison: December 04, 2023 Findings: Postop surgical changes are identified with a right-sided transmetatarsal amputation. Skin lexi ar e present. Bandaging around the distal foot is noted. The bone density is diminished. The right foot lies within a splint. Impression: Status post transmetatarsal amputation of the right foot.
[2024-01-06] MEDS: lidocaine 1% 5 ML in potassium chloride premix 100 ML 26.25 ML IV (16:31)
[2024-01-06 16:41] LABS: Glucose Point of Care 194 mg/dL (70-110)
[2024-01-06] MEDS: atorvastatin 40 mg Tablet 20 MG PO (20:20)
[2024-01-06] MEDS: duloxetine 60 mg Capsule PO (20:20)
[2024-01-06] MEDS: tamsulosin 0.4 mg Capsule 0.800000000000000044 MG PO (20:21)
[2024-01-06] MEDS: albumin 25 G/100 ML BAG 60 G IV (20:22)
[2024-01-06 20:33] LABS: Glucose Point of Care 193 mg/dL (70-110)
[2024-01-06] MEDS: insulin glargine 100 units/1 mL 13 UNIT SUBCUT (21:03)
--- NOTE | 2024-01-06 21:15 | PC.NURSE ---
IV to left AC positional when flushing after end of IV potassium infusion. During Bumex administration, IV leaked. Venaguard was removed and J-loop connection to catheter was tightened. IV now flushes well without leakage and new venaguard was placed.
[2024-01-07] VITALS (8 sets, daily range): BP systolic 123–144; BP diastolic 43–62; PULSE 54–63; RESP 17–19; TEMP 36.1–37.2; O2SAT 90–97
[2024-01-07] MEDS: heparin 5,000 unit/mL INJ 1 mL 5000 UNIT SUBCUT ×2 (00:07→13:09)
[2024-01-07] MEDS: piperacillin-tazobactam 3.375 GM in sodium chloride 0.9% (plus) 50 ML IV ×3 (00:08→17:03)
[2024-01-07] MEDS: HYDROcodone-acetaminophen 5-325 mg Tablet 1 TAB PO ×2 (01:22→08:26)
[2024-01-07 05:08] LABS: Magnesium 2.2 mg/dL (1.7-2.3)
[2024-01-07 06:38] LABS: Glucose Point of Care 110 mg/dL (70-110)
[2024-01-07] MEDS: albumin 25 G/100 ML BAG 60 G IV ×2 (08:25→20:55)
[2024-01-07] MEDS: levothyroxine 125 mcg Tablet PO (08:26)
[2024-01-07] MEDS: sertraline 50 mg Tablet PO (08:26)
[2024-01-07] MEDS: cholecalciferol (vitamin D3) 1,000 unit Tablet 25 UNIT PO (08:26)
[2024-01-07] MEDS: clopidogrel 75 mg Tablet PO (08:26)
[2024-01-07] MEDS: aspirin 81 mg EC Tablet PO (08:26)
[2024-01-07] MEDS: bumetanide 0.25 mg/mL SDV 10 mL 2 MG IVP ×2 (08:27→20:55)
[2024-01-07] MEDS: potassium chloride oral liq 20 mEq/15 mL UDC 40 MEQ PO (08:27)
[2024-01-07 08:59] LABS: Anion Gap 14.2 (5-19); Blood Urea Nitrogen 31 mg/dL (8-23); Calcium 8.1 mg/dL (8.5-10.5); Carbon Dioxide 26 mmol/L (22-29); Chloride 101 mmol/L (98-107); Glucose 108 mg/dL (65-115); Osmolality Calculated 293 mOsm/kg (285-295); Potassium 3.2 mmol/L (3.5-5.1); Sodium 138 mmol/L (136-145)
[2024-01-07 09:05] LABS: Creatinine Clr Calc Pharmacy 41.4397
--- NOTE | 2024-01-07 09:46 | PC.CHAP ---
Pastoral Care Encounter/Spiritual Assessment Type of Contact [] Declined corporate accountant visit [] Patient/Family/Request visit [] Outpatient visit [] Follow-up visit [] Physician referral [] Code/Alert [] Routine visit [] Staff referral [] Actively dying [] Patient sleeping [] Family support [] [] Out of room [] Palliative care [] [] Receiving care in room [] Pre-surgical visit [] Trauma [] Long length of stay [] ICU visit [x] Other:contact precautions. No visit. Relational/Emotional Strength [] Patient feels connected with others/family/visitors/staff [] Distress [] Loneliness/isolation [] Abandonment Spirituality of Patient [] Person of [place] [] Attends Amish of their [place] [] Believes in Prayer [] Reads Bible or Voodoo materials [] There are Spiritual issues to be addressed Loading Unit Tool Setter Interventions [] Prayer [] Active listening [] Non-anxious presence [] Spiritual/emotional support [] Crisis/trauma care [] Spiritual counseling [] Bereavement support [] Provided bereavement packet [] Provided Bible/devotional materials [] Provided toy/stuffed animal, coloring book to patient or family member [] Provided Communion [] Anointing/[place] [] Salvation [] Completed spiritual assessment [] Other: Impact on Illness or Injury [] Angry [] Fearful [] Anxious [] Often cries [] Exhaustion [] Unable to work [] Unable to attend anabaptist [] Unable to walk/stand [] Unable to read [] Unable to drive [] Unable to eat/drink [] Unable to sleep [] Unable to be with family [] Patient intubated [] Other: Summary Time spent with patient
--- NOTE | 2024-01-07 10:52 | PM.PN ---
Subjective Subjective: Patient again asleep upon entering room. Easily awakens. Placed his hearing aids in. I met with him and share that binder caser to discuss discharge planning. Patient is agreeable to return to [facility] and we discussed moving to assisted living scenario. He states that he thought this was coming and he says Jason vieyra will allow him to take his 2 dogs. Vitals/I&O/Wt Last Vital Signs Temp 97.1 F L 01/07/24 07:48 Pulse 58 L 01/07/24 07:48 Resp 19 H 01/07/24 07:48 BP 136/62 01/07/24 07:48 Pulse Ox 97 01/07/24 07:48 O2 Del Method Nasal Cannula 01/07/24 07:48 O2 Flow Rate 2 01/07/24 08:00 01/06/24 01/07/24 01/07/24 22:59 06:59 14:59 Intake Total 975 / 1745 530 / 2275 100 / 100 Output Total 350 / 1350 2200 / 3550 Balance 625 / 395 -1670 / -1275 100 / 100 Weight last 48 hrs Weight 105.233 kg Weight 104.145 kg Weight 105.551 kg Weight 105.551 kg Weight 105.551 kg Weight 104.326 kg Physical Exam Narrative: Easily awakens. No acute distress Heart regular rate and rhythm normal S1-S2 without murmurs clicks gallops or rubs Lungs clear to auscultation anteriorly Abdomen there is a minimal amount of bleeding around the site of Lovenox injection no hematoma abdomen soft nontender nondistended positive bowel sounds Extremities: Diffuse anasarca up to the abdomen including scrotal sac Urinary Catheter Management: Peoples: Cath Placed During This Visit: yes Reason for Continuing Indwelling Catheter: Accurate Measurement of Urinary Output in Critically Ill Patients Urinary Catheter Date of Insertion: 01/06/24 Urinary Catheter Time of Insertion: 15:30 Data 01/06/24 02:05 01/07/24 04:16 Micro: Microbiology 01/05/24 20:29 Blood Culture - Preliminary Blood Enterococcus faecalis 01/05/24 20:29 Blood Culture - Preliminary Blood Enterococcus faecalis A&P Assessment and plan (1) CHF exacerbation: Acute on chronic heart failure with preserved ejection fraction exacerbation Echocardiogram from May 2023 showed LVEF of 45 to 50% Hold beta-davi when in acute heart failure Continue Bumex 2 mg every 12 hours with albumin to be given 30 minutes prior. Strict I's and O's Daily weights Telemetry Qualifiers: Heart failure type: systolic Qualified Code(s): I50.23 - Acute on chronic systolic (congestive) heart failure (2) Lactic acidosis: Secondary to bacteremia. As discussed with Dr. Duggan concern is that the Enterococcus is still coming from the right lower extremity. Continue Zosyn for now Follow cultures (3) Wounds, multiple: Bilateral foot wounds with history of right TMA on 12/09 -appreciate Dr. Duggan's assistance. Right foot wound -x-ray shows no changes for osteomyelitis and Dr. Duggan's opinion noted that this is stable and improving. (4) Diabetes: Type 2 diabetes mellitus on insulin, uncontrolled with hyperglycemia A1c 9.6 (12/04/2023) Patient was taking 10 units insulin at bedtime. With sliding scale insulin correction. Yesterday (01/06/2024) his basal dose was increased to 13 units at bedtime NOTE: Fasting glucose was 110 this morning without adjustment. Sliding-scale insulin correction Avoid hypoglycemia Qualifiers: Diabetes mellitus type: type 2 Diabetes mellitus shelter insulin use: with emt intermediate use Diabetes mellitus complication status: with circulatory complication Diabetes mellitus complication detail: with other circulatory complications Qualified Code(s): E11.59 - Type 2 diabetes mellitus with other circulatory complications; Z79.4 - longterm (current) use of insulin (5) Peripheral arterial disease: Continue DAPT with aspirin and Plavix Continue statin (6) Benign prostatic hyperplasia: Continue home Flomax Qualifiers: Lower urinary tract symptom presence: unspecified whether lower urinary tract symptoms present Qualified Code(s): N40.0 - Benign prostatic hyperplasia without lower urinary tract symptoms Plan DVT prophylaxis: Heparin CODE STATUS: Assume full code Attestations Medical Necessity Statement*: Patient requires a 2 midnight stay due to bacteremia Coding Level of Care Code Acute Code for g Fwd Diagnoses Acute on chronic systolic congestive heart failure I50.23 Heart failure type: systolic Lactic acidosis E87.20 Wounds, multiple T07.XXXA Type 2 diabetes mellitus with other circulatory complication, with long-term current use of insulin E11.59; Z79.4 Diabetes mellitus type: type 2 Diabetes mellitus shelter insulin use: with emt intermediate use Diabetes mellitus complication status: with circulatory complication Diabetes mellitus complication detail: with other circulatory complications Peripheral arterial disease I73.9 Benign prostatic hyperplasia, unspecified whether lower urinary tract symptoms present N40.0 Lower urinary tract symptom presence: unspecified whether lower urinary tract symptoms present
[2024-01-07 11:30] LABS: Glucose Point of Care 207 mg/dL (70-110)
--- NOTE | 2024-01-07 12:00 | P.PN_ITS ---
Subjective 2 Subjective: Patient seen bedside today. Was sleeping upon entering the room. Dressings are clean and dry bilateral foot. No strikethrough bleeding. Vitals/I&O/Wt Last Vital Signs Temp 97.1 F L 01/07/24 07:48 Pulse 58 L 01/07/24 07:48 Resp 19 H 01/07/24 07:48 BP 136/62 01/07/24 07:48 Pulse Ox 97 01/07/24 07:48 O2 Del Method Nasal Cannula 01/07/24 07:48 O2 Flow Rate 2 01/07/24 08:00 01/06/24 01/07/24 01/07/24 22:59 06:59 14:59 Intake Total 975 / 1745 530 / 2275 100 / 100 Output Total 350 / 1350 2200 / 3550 Balance 625 / 395 -1670 / -1275 100 / 100 Weight last 48 hrs Weight 232 lb Weight 229 lb 9.6 oz Weight 232 lb 11.2 oz Weight 232 lb 11.2 oz Weight 232 lb 11.2 oz Weight 230 lb Physical Exam 2 Narrative: Patient is alert and oriented ?3 and in no acute distress. The following is a focused bilateral lower extremity exam. VASCULAR: Dorsalis pedis palpable bilaterally. Posterior tibial arteries palpable. Diminished pedal hair growth bilaterally. NEUROLOGICAL: Protective sensation diminished to light touch. DERMATOLOGICAL: Betadine paint at the right transmetatarsal potation site, some stable eschar at the right transmetatarsal amputation site without fluctuance or bogginess, no purulence and no periwound erythema, no crepitus with soft tissue palpation. No purulence and no erythema. Grade 2 wound left foot plantar central foot measures 0.6 cm x 0.6 cm x 0.2 cm with fibrogranular base. No periwound erythema, warmth or drainage. Wound at the amputation site left fifth ray measures 1.1 cm x 0.3 cm x 0.2 cm with epithelialized margin and granular base. MUSCULOSKELETAL: Status post right transmetatarsal amputation. Left open for staged debridement and secondary closure. Urinary Catheter Management: Peoples: Cath Placed During This Visit: yes Reason for Continuing Indwelling Catheter: Accurate Measurement of Urinary Output in Critically Ill Patients Urinary Catheter Date of Insertion: 01/06/24 Urinary Catheter Time of Insertion: 15:30 Data 01/06/24 02:05 01/08/24 08:44 Micro: Microbiology 01/05/24 20:29 Blood Culture - Preliminary Blood Enterococcus faecalis 01/05/24 20:29 Blood Culture - Preliminary Blood Enterococcus faecalis A&P Assessment and plan (1) Non-pressure chronic ulcer of other part of left foot with fat layer exposed: (2) Status post transmetatarsal amputation of right foot: (3) Peripheral arterial disease: (4) 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 mellitus: Plan Surendra Roland is a 73 year old male admitted to the hospital service for CHF exacerbation, lactic acidosis, bilateral foot wounds and was noted to have positive blood cultures with Enterococcus. Partial left fifth ray resection secondary to osteomyelitis was performed 07/16/2023 and continues to progress slowly. Right transmetatarsal amputation performed 12/06/2023 with delayed closure of amputation site 12/10/2023. Patient completed 14 days of IV Unasyn at last hospitalization discharge following transmetatarsal potation. Completion date December 20, 2023 Silver cell dressing applied to left foot wound which remains clinically stable. Betadine wet-to-dry dressing to right transmetatarsal amputation site, his right foot amputation site shows a progression of healing, decreased eschar, resolved erythema, no purulent drainage. X-ray left foot shows stable postoperative changes without any acute osseous abnormality taken December 06, 2023 X-ray right foot December 06, 2023 radiology report is pending, per my interpretation there is no soft tissue edema, no erosive or destructive changes at transmetatarsal amputation site. No plans for surgical intervention from podiatry at left or right foot during this hospitalization. Left foot wound is well-healing, right TMA amputation site is improved since his last evaluation. No cellulitis or lymphangitis at the lower extremities. It is possible that source of bacteremia is from right foot, recommend continuation of IV antibiotics and continued monitoring. Podiatry will follow and perform daily dressing changes during his hospitalization as well as follow-up outpatient once discharged. Patient is okay for discharge/transfer from podiatry standpoint, will follow-up outpatient Attestations 2 Medical Necessity Statement*: Diabetic foot wound, left and right foot. Coding Level of Care Code Acute Code for [facility] Fwd Diagnoses Non-pressure chronic ulcer of other part of left foot with fat layer exposed L97.522 Status post transmetatarsal amputation of right foot Z89.431 Peripheral arterial disease I73.9 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 mellitus E11.42
[2024-01-07 12:18] LABS: Methicillin-Resist S.aureu PCR DETECTED (NOT DETECTED)
[2024-01-07] MEDS: insulin lispro 100 unit/1 mL SUBCUT ×3 (13:09→20:53)
[2024-01-07 16:09] LABS: Glucose Point of Care 217 mg/dL (70-110)
[2024-01-07] MEDS: tamsulosin 0.4 mg Capsule 0.800000000000000044 MG PO (19:56)
[2024-01-07] MEDS: duloxetine 60 mg Capsule PO (19:57)
[2024-01-07] MEDS: atorvastatin 40 mg Tablet 20 MG PO (19:57)
[2024-01-07 20:31] LABS: Glucose Point of Care 272 mg/dL (70-110)
[2024-01-07] MEDS: insulin glargine 100 units/1 mL 13 UNIT SUBCUT (20:52)
[2024-01-08] VITALS (8 sets, daily range): BP systolic 123–151; BP diastolic 50–66; PULSE 55–60; RESP 16–18; TEMP 36.4–37.2; O2SAT 90–98; BMI 32.4
[2024-01-08] MEDS: piperacillin-tazobactam 3.375 GM in sodium chloride 0.9% (plus) 50 ML IV ×3 (00:43→17:16)
[2024-01-08] MEDS: heparin 5,000 unit/mL INJ 1 mL 5000 UNIT SUBCUT ×2 (00:44→11:24)
[2024-01-08 02:36] LABS: Glucose Point of Care 88 mg/dL (70-110)
[2024-01-08 06:30] LABS: Glucose Point of Care 115 mg/dL (70-110)
[2024-01-08] MEDS: albumin 25 G/100 ML BAG 60 G IV ×2 (07:37→20:46)
[2024-01-08] MEDS: bumetanide 0.25 mg/mL SDV 10 mL 2 MG IVP ×2 (07:41→20:46)
[2024-01-08] MEDS: potassium chloride oral liq 20 mEq/15 mL UDC 40 MEQ PO (07:41)
[2024-01-08] MEDS: cholecalciferol (vitamin D3) 1,000 unit Tablet 25 UNIT PO (07:42)
[2024-01-08] MEDS: sertraline 50 mg Tablet PO (07:42)
[2024-01-08] MEDS: clopidogrel 75 mg Tablet PO (07:42)
[2024-01-08] MEDS: levothyroxine 125 mcg Tablet PO (07:42)
[2024-01-08] MEDS: aspirin 81 mg EC Tablet PO (07:43)
--- NOTE | 2024-01-08 09:13 | P.PN_ITS ---
Subjective 2 Subjective: Patient reports he is so-so . He states that he has to have a bowel movement. Otherwise he remains sitting partially inclined in bed without other complaints. Vitals/I&O/Wt Last Vital Signs Temp 97.9 F 01/08/24 07:59 Pulse 55 L 01/08/24 07:59 Resp 16 01/08/24 07:59 BP 123/60 01/08/24 07:59 Pulse Ox 90 01/08/24 07:59 O2 Del Method Nasal Cannula 01/08/24 04:00 O2 Flow Rate 2 01/07/24 20:00 01/07/24 01/08/24 01/08/24 22:59 06:59 14:59 Intake Total 630 / 780 530 / 1310 100 / 100 Output Total 2700 / 4000 1200 / 5200 Balance -2070 / -3220 -670 / -3890 100 / 100 Weight last 48 hrs Weight 104.326 kg Weight 102.512 kg Weight 105.233 kg Weight 104.145 kg Physical Exam 2 Narrative: No acute distress Heart regular rate and rhythm normal S1-S2 , today I do hear a systolic murmur at the left lower sternal border approximately 2-3/6. Lungs clear to auscultation anteriorly Abdomen there is a minimal amount of bleeding around the site of Lovenox injection no hematoma abdomen soft nontender nondistended positive bowel sounds Extremities: Diffuse anasarca up to the abdomen including scrotal sac. Showing signs of improvement. Urinary Catheter Management: Peoples: Cath Placed During This Visit: yes Reason for Continuing Indwelling Catheter: Accurate Measurement of Urinary Output in Critically Ill Patients Urinary Catheter Date of Insertion: 01/06/24 Urinary Catheter Time of Insertion: 15:30 Data 01/06/24 02:05 01/08/24 08:44 A&P Assessment and plan (1) CHF exacerbation: Acute on chronic heart failure with preserved ejection fraction exacerbation Echocardiogram from May 2023 showed LVEF of 45 to 50% Hold beta-davi when in acute heart failure Continue Bumex 2 mg every 12 hours with albumin to be given 30 minutes prior. Strict I's and O's Daily weights Telemetry Qualifiers: Heart failure type: systolic Qualified Code(s): I50.23 - Acute on chronic systolic (congestive) heart failure (2) Septicemia due to enterococcus: Currently on Zosyn 3/375 q8hr Was on Unasyn following discharge and completed total of 14 days of antibiotics. Awaiting sensitivities (3) Lactic acidosis: Secondary to bacteremia. (4) Wounds, multiple: Bilateral foot wounds with history of right TMA on 12/09 -appreciate Dr. Duggan's assistance. Right foot wound -x-ray shows no changes for osteomyelitis and Dr. Duggan's opinion noted that this is stable and improving. Dr. Duggan following and changing RLE dressing daily. Greatly appreciate his expertise. (5) Diabetes: Type 2 diabetes mellitus on insulin, uncontrolled with hyperglycemia A1c 9.6 (12/04/2023) Patient was taking 10 units insulin at bedtime. With sliding scale insulin correction. Yesterday (01/06/2024) his basal dose was increased to 13 units at bedtime NOTE: Fasting glucose is markedly improved, however, during day still in 200's Will need to increase correction or add scheduled insulin Qualifiers: Diabetes mellitus complication detail: with other circulatory complications Diabetes mellitus complication status: with circulatory complication Diabetes mellitus [facility] insulin use: with rodent exterminator use D iabetes mellitus type: type 2 Qualified Code(s): E11.59 - Type 2 diabetes mellitus with other circulatory complications; Z79.4 - rodent exterminator (current) use of insulin (6) Peripheral arterial disease: Continue DAPT with aspirin and Plavix Continue statin (7) Benign prostatic hyperplasia: Continue home Flomax Qualifiers: Lower urinary tract symptom presence: unspecified whether lower urinary tract symptoms present Qualified Code(s): N40.0 - Benign prostatic hyperplasia without lower urinary tract symptoms Plan DVT prophylaxis: Heparin CODE STATUS: Assume full code Attestations 2 Medical Necessity Statement*: Patient requires a 2 midnight stay due to bacteremia Coding Level of Care Code Acute Code for [facility] Diagnoses Acute on chronic systolic congestive heart failure I50.23 Heart failure type: systolic Septicemia due to enterococcus A41.81 Lactic acidosis E87.20 Wounds, multiple T07.XXXA Type 2 diabetes mellitus with other circulatory complication, with long-term current use of insulin E11.59; Z79.4 Diabetes mellitus complication detail: with other circulatory complications Diabetes mellitus complication status: with circulatory complication Diabetes mellitus [facility] insulin use: with rodent exterminator use Diabetes mellitus type: type 2 Peripheral arterial disease I73.9 Benign prostatic hyperplasia, unspecified whether lower urinary tract symptoms present N40.0 Lower urinary tract symptom presence: unspecified whether lower urinary tract symptoms present
[2024-01-08 09:14] LABS: Anion Gap 14.8 (5-19); Blood Urea Nitrogen 30 mg/dL (8-23); Calcium 8.4 mg/dL (8.5-10.5); Carbon Dioxide 27 mmol/L (22-29); Chloride 97 mmol/L (98-107); Creatinine Clr Calc Pharmacy 41.2647; Glucose 125 mg/dL (65-115); Osmolality Calculated 288 mOsm/kg (285-295); Potassium 3.8 mmol/L (3.5-5.1); Sodium 135 mmol/L (136-145)
[2024-01-08 10:47] LABS: Glucose Point of Care 268 mg/dL (70-110)
[2024-01-08] MEDS: insulin lispro 100 unit/1 mL 10 UNIT SUBCUT (11:24)
[2024-01-08] MEDS: insulin lispro 100 unit/1 mL SUBCUT ×3 (11:24→21:34)
--- NOTE | 2024-01-08 12:22 | PC.SOCIAL ---
Pg 2 IMM Explained to pt Pg 2 IMM. No questions voiced. Provided pt a copy. Initialed, dated, & timed a copy & placed in chart.
--- NOTE | 2024-01-08 14:29 | PM.PN ---
Subjective Subjective: Patient evaluated this afternoon, was sitting in his recliner. Dressings are clean, dry and intact. He is pending transfer to retirement Vitals/I&O/Wt Last Vital Signs Temp 97.5 F L 01/08/24 11:56 Pulse 59 L 01/08/24 11:56 Resp 16 01/08/24 07:59 BP 139/66 01/08/24 11:56 Pulse Ox 93 01/08/24 11:56 O2 Del Method Room Air 01/08/24 11:56 O2 Flow Rate 2 01/07/24 20:00 01/07/24 01/08/24 01/08/24 22:59 06:59 14:59 Intake Total 630 / 780 530 / 1310 630 / 630 Output Total 2700 / 4000 1200 / 5200 1000 / 1000 Balance -2070 / -3220 -670 / -3890 -370 / -370 Weight last 48 hrs Weight 230 lb Weight 226 lb Weight 232 lb Weight 229 lb 9.6 oz Physical Exam Narrative: Patient is alert and oriented ?3 and in no acute distress. The following is a focused bilateral lower extremity exam. VASCULAR: Dorsalis pedis palpable bilaterally. Posterior tibial arteries palpable. Diminished pedal hair growth bilaterally. NEUROLOGICAL: Protective sensation diminished to light touch. DERMATOLOGICAL: Betadine paint at the right transmetatarsal potation site, some stable eschar at the right transmetatarsal amputation site without fluctuance or bogginess, no purulence and no periwound erythema, no crepitus with soft tissue palpation. No purulence and no erythema. Grade 2 wound left foot plantar central foot measures 0.6 cm x 0.6 cm x 0.2 cm with fibrogranular base. No periwound erythema, warmth or drainage. Wound at the amputation site left fifth ray measures 1.1 cm x 0.3 cm x 0.2 cm with epithelialized margin and granular base. MUSCULOSKELETAL: Status post right transmetatarsal amputation. Left open for staged debridement and secondary closure. Urinary Catheter Management: Peoples: Cath Placed During This Visit: yes Reason for Continuing Indwelling Catheter: Accurate Measurement of Urinary Output in Critically Ill Patients Urinary Catheter Date of Insertion: 01/06/24 Urinary Catheter Time of Insertion: 15:30 Data 01/06/24 02:05 01/08/24 08:44 A&P Assessment and plan (1) Non-pressure chronic ulcer of other part of left foot with fat layer exposed: (2) Status post transmetatarsal amputation of right foot: (3) Peripheral arterial disease: (4) 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 mellitus: Plan Surendra Roland is a 73 year old male admitted to the hospital service for CHF exacerbation, lactic acidosis, bilateral foot wounds and was noted to have positive blood cultures with Enterococcus. Partial left fifth ray resection secondary to osteomyelitis was performed 07/16/2023 and continues to progress slowly. Right transmetatarsal amputation performed 12/06/2023 with delayed closure of amputation site 12/10/2023. Patient completed 14 days of IV Unasyn at last hospitalization discharge following transmetatarsal potation. Completion date December 20, 2023 Silver cell dressing applied to left foot wound which remains clinically stable. Betadine wet-to-dry dressing to right transmetatarsal amputation site, his right foot amputation site shows a progression of healing, decreased eschar, resolved erythema, no purulent drainage. X-ray left foot shows stable postoperative changes without any acute osseous abnormality taken December 06, 2023 X-ray right foot December 06, 2023 radiology report is pending, per my interpretation there is no soft tissue edema, no erosive or destructive changes at transmetatarsal amputation site. No plans for surgical intervention from podiatry at left or right foot during this hospitalization. Left foot wound is well-healing, right TMA amputation site is improved since his last evaluation. No cellulitis or lymphangitis at the lower extremities. It is possible that source of bacteremia is from right foot, recommend continuation of IV antibiotics and continued monitoring. Podiatry will follow and perform daily dressing changes during his hospitalization as well as follow-up outpatient once discharged. Interim update 01/08/2024 Okay for transfer/discharge from podiatry standpoint will follow-up outpatient. New dressings applied at today's visit as above Sutures and lexi removed from right transmetatarsal amputation site, stable interval healing appreciated. Weightbearing status: Weightbearing as tolerated with Darco shoe to the left foot Right heel touch for transfers with posterior splint Attestations Medical Necessity Statement*: Lower extremity diabetic foot wounds bilaterally. Coding Level of Care Code Acute Code for [facility] Fwd Diagnoses Non-pressure chronic ulcer of other part of left foot with fat layer exposed L97.522 Status post transmetatarsal amputation of right foot Z89.431 Peripheral arterial disease I73.9 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 mellitus E11.42
[2024-01-08 17:01] LABS: Glucose Point of Care 150 mg/dL (70-110)
--- NOTE | 2024-01-08 17:11 | PC.OT ---
OT evaluation attempted with pt declining to be seen; will attempt at a later time.
--- NOTE | 2024-01-08 19:33 | PC.NURSE ---
SHIFT SUMMARY Patient has done well today. He sat in the chair the majority of the day. Patient has remained on room air all day. Around 2000ml of urine output. Patient currently resting in bed.
[2024-01-08] MEDS: HYDROcodone-acetaminophen 5-325 mg Tablet 1 TAB PO (20:45)
[2024-01-08] MEDS: duloxetine 60 mg Capsule PO (20:45)
[2024-01-08] MEDS: atorvastatin 40 mg Tablet 20 MG PO (20:45)
[2024-01-08] MEDS: tamsulosin 0.4 mg Capsule 0.800000000000000044 MG PO (20:46)
[2024-01-08 20:50] LABS: Glucose Point of Care 278 mg/dL (70-110)
[2024-01-08] MEDS: insulin glargine 100 units/1 mL 13 UNIT SUBCUT (21:35)
[2024-01-09] VITALS (9 sets, daily range): BP systolic 113–144; BP diastolic 51–61; PULSE 51–64; RESP 16–18; TEMP 36.3–36.8; O2SAT 92–98
[2024-01-09] MEDS: heparin 5,000 unit/mL INJ 1 mL 5000 UNIT SUBCUT ×2 (01:00→11:40)
[2024-01-09] MEDS: piperacillin-tazobactam 3.375 GM in sodium chloride 0.9% (plus) 50 ML IV ×3 (01:00→17:05)
[2024-01-09 04:34] LABS: Anion Gap 15.1 (5-19); Blood Urea Nitrogen 31 mg/dL (8-23); Calcium 8.5 mg/dL (8.5-10.5); Carbon Dioxide 29 mmol/L (22-29); Chloride 96 mmol/L (98-107); Creatinine Clr Calc Pharmacy 45.2096; Glucose 102 mg/dL (65-115); Osmolality Calculated 291 mOsm/kg (285-295); Potassium 3.1 mmol/L (3.5-5.1); Sodium 137 mmol/L (136-145)
[2024-01-09 06:14] LABS: Glucose Point of Care 99 mg/dL (70-110)
[2024-01-09] MEDS: bumetanide 0.25 mg/mL SDV 10 mL 2 MG IVP ×2 (08:11→20:20)
[2024-01-09] MEDS: aspirin 81 mg EC Tablet PO (08:12)
[2024-01-09] MEDS: sertraline 50 mg Tablet PO (08:12)
[2024-01-09] MEDS: levothyroxine 125 mcg Tablet PO (08:12)
[2024-01-09] MEDS: potassium chloride oral liq 20 mEq/15 mL UDC 40 MEQ PO ×2 (08:12→17:05)
[2024-01-09] MEDS: albumin 25 G/100 ML BAG 60 G IV ×2 (08:12→20:20)
[2024-01-09] MEDS: clopidogrel 75 mg Tablet PO (08:12)
[2024-01-09] MEDS: cholecalciferol (vitamin D3) 1,000 unit Tablet 1000 UNIT PO (08:24)
[2024-01-09 11:13] LABS: Glucose Point of Care 135 mg/dL (70-110)
[2024-01-09] MEDS: insulin lispro 100 unit/1 mL 10 UNIT SUBCUT ×2 (11:39→17:07)
--- NOTE | 2024-01-09 14:23 | ECG_ITS ---
[facility] Test Date: 2024-01-09 Pat Name: Surendra Roland Department: Room: 250 Gender: Male [employer]: : 1950 Requested By: Callie Claros Order Number: [id number] Dennis MD: Nelson Garcia M.D. Measurements Intervals [place] Rate: 59 P: 0 MT: 0 QRS: -21 QRSD: 106 T: 152 QT: 454 QTc: 453 Interpretive Statements Possible atrial fibrillation with a slow ventricular response rate Poor R wave progression BORDERLINE LEFT AXIS DEVIATION [QRS AXIS < -20] MODERATE T-WAVE ABNORMALITY, CONSIDER LATERAL ISCHEMIA [-0.1+ mV T-WAVE IN I/aVL/V5/V6] Compared to ECG 01/05/2024 20:02:59 Possible ischemia now present Atrial fibrillation no longer present T-wave abnormality still present Electronically Signed On 01-10-2024 17:03:29 CDT by Nelson Garcia M.D. [email or web address]
--- NOTE | 2024-01-09 15:50 | PM.PN ---
Subjective Subjective: No complaints. Able to have a bowel movement today. Vitals/I&O/Wt Last Vital Signs Temp 98.2 F 01/09/24 14:30 Pulse 63 01/09/24 14:30 Resp 16 01/09/24 14:30 BP 121/55 01/09/24 14:30 Pulse Ox 98 01/09/24 14:30 O2 Del Method Room Air 01/08/24 11:56 O2 Flow Rate 2 01/07/24 20:00 01/09/24 01/09/24 01/09/24 06:59 14:59 22:59 Intake Total 530 / 1780 1130 / 1130 Output Total 1450 / 5150 1150 / 1150 Balance -920 / -3370 -20 / -20 Weight last 48 hrs Weight 100.108 kg Weight 100.108 kg Weight 104.326 kg Weight 102.512 kg Physical Exam Narrative: No acute distress Heart regular rate and rhythm normal S1-S2 , systolic murmur at the left lower sternal border approximately 2-3/6. Lungs clear to auscultation anteriorly Abdomen soft nontender nondistended positive bowel sounds Extremities: Diffuse anasarca up to the abdomen including scrotal sac. Showing signs of improvement daily Urinary Catheter Management: Peoples: Cath Placed During This Visit: yes Reason for Continuing Indwelling Catheter: Accurate Measurement of Urinary Output in Critically Ill Patients Urinary Catheter Date of Insertion: 01/06/24 Urinary Catheter Time of Insertion: 15:30 Data 01/06/24 02:05 01/09/24 03:57 Micro: Microbiology 01/05/24 20:29 Blood Culture - Final Blood Enterococcus faecalis A&P Assessment and plan (1) CHF exacerbation: Acute on chronic heart failure with preserved ejection fraction exacerbation Echocardiogram from May 2023 showed LVEF of 45 to 50% Hold beta-davi when in acute heart failure Continue Bumex 2 mg every 12 hours with albumin to be given 30 minutes prior. Strict I's and O's --3.3 L last 24 hours. Telemetry Qualifiers: Heart failure type: systolic Qualified Code(s): I50.23 - Acute on chronic systolic (congestive) heart failure (2) Septicemia due to enterococcus: Currently on Zosyn 3/375 q8hr Was on Unasyn following discharge and completed total of 14 days of antibiotics. Awaiting sensitivities (3) Lactic acidosis: Secondary to bacteremia. (4) Wounds, multiple: Bilateral foot wounds with history of right TMA on 12/09 -appreciate Dr. Duggan's assistance. Right foot wound -x-ray shows no changes for osteomyelitis and Dr. Duggan's opinion noted that this is stable and improving. Dr. Duggan following and changing RLE dressing daily. Greatly appreciate his expertise. (5) Diabetes: Type 2 diabetes mellitus on insulin, uncontrolled with hyperglycemia A1c 9.6 (12/04/2023) Patient was taking 10 units insulin at bedtime. With sliding scale insulin correction. Yesterday (01/06/2024) his basal dose was increased to 13 units at bedtime NOTE: Fasting glucose is markedly improved, however, during day still in 200's Improving blood sugars with scheduled 10 units before meals. Qualifiers: Diabetes mellitus type: type 2 Diabetes mellitus skilled nursing insulin use: with keno terminal operator use Diabetes mellitus complication status: with circulatory complication Diabetes mellitus complication detail: with other circulatory complications Qualified Code(s): E11.59 - Type 2 diabetes mellitus with other circulatory complications; Z79.4 - prison (current) use of insulin (6) Peripheral arterial disease: Continue DAPT with aspirin and Plavix Continue statin (7) Benign prostatic hyperplasia: Continue home Flomax Qualifiers: Lower urinary tract symptom presence: unspecified whether lower urinary tract symptoms present Qualified Code(s): N40.0 - Benign prostatic hyperplasia without lower urinary tract symptoms (8) Ventricular tachycardia, nonsustained: May be due to hypokalemia had added a extra dose of potassium today I had increased the dosage of potassium replacement today however since he has not had the second dose I will check a stat BMP. Attestations Medical Necessity Statement*: Patient requires a 2 midnight stay due to bacteremia Coding Level of Care Code Acute Code for [facility] Fwd Diagnoses Acute on chronic systolic congestive heart failure I50.23 Heart failure type: systolic Septicemia due to enterococcus A41.81 Lactic acidosis E87.20 Wounds, multiple T07.XXXA Type 2 diabetes mellitus with other circulatory complication, with long-term current use of insulin E11.59; Z79.4 Diabetes mellitus type: type 2 Diabetes mellitus keno terminal operator insulin use: with skilled nursing use Diabetes mellitus complication status: with circulatory complication Diabetes mellitus complication detail: with other circulatory complications Peripheral arterial disease I73.9 Benign prostatic hyperplasia, unspecified whether lower urinary tract symptoms present N40.0 Lower urinary tract symptom presence: unspecified whether lower urinary tract symptoms present Ventricular tachycardia, nonsustained I47.29
--- NOTE | 2024-01-09 16:08 | PM.PN ---
Subjective Subjective: Patient seen bedside, he is in bed resting comfortably, denies any acute events overnight. Tolerating regular diet. Vitals/I&O/Wt Last Vital Signs Temp 98.2 F 01/09/24 14:30 Pulse 63 01/09/24 14:30 Resp 16 01/09/24 14:30 BP 121/55 01/09/24 14:30 Pulse Ox 98 01/09/24 14:30 O2 Del Method Room Air 01/08/24 11:56 O2 Flow Rate 2 01/07/24 20:00 01/09/24 01/09/24 01/09/24 06:59 14:59 22:59 Intake Total 530 / 1780 1130 / 1130 Output Total 1450 / 5150 1150 / 1150 Balance -920 / -3370 -20 / -20 Weight last 48 hrs Weight 220 lb 11.2 oz Weight 220 lb 11.2 oz Weight 230 lb Weight 226 lb Physical Exam Narrative: Patient is alert and oriented ?3 and in no acute distress. The following is a focused bilateral lower extremity exam. VASCULAR: Dorsalis pedis palpable bilaterally. Posterior tibial arteries palpable. Diminished pedal hair growth bilaterally. NEUROLOGICAL: Protective sensation diminished to light touch. DERMATOLOGICAL: Betadine paint at the right transmetatarsal potation site, some stable eschar at the right transmetatarsal amputation site without fluctuance or bogginess, no purulence and no periwound erythema, no crepitus with soft tissue palpation. No purulence and no erythema. Grade 2 wound left foot plantar central foot measures 0.6 cm x 0.6 cm x 0.2 cm with fibrogranular base. No periwound erythema, warmth or drainage. Wound at the amputation site left fifth ray measures 1.1 cm x 0.3 cm x 0.2 cm with epithelialized margin and granular base. MUSCULOSKELETAL: Status post right transmetatarsal amputation. Left open for staged debridement and secondary closure. Urinary Catheter Management: Peoples: Cath Placed During This Visit: yes Reason for Continuing Indwelling Catheter: Accurate Measurement of Urinary Output in Critically Ill Patients Urinary Catheter Date of Insertion: 01/06/24 Urinary Catheter Time of Insertion: 15:30 Data 01/10/24 04:01 01/10/24 04:01 Micro: Microbiology 01/05/24 20:29 Blood Culture - Final Blood Enterococcus faecalis A&P Assessment and plan (1) Non-pressure chronic ulcer of other part of left foot with fat layer exposed: (2) Status post transmetatarsal amputation of right foot: (3) Peripheral arterial disease: (4) 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 mellitus: Plan Surendra Roland is a 73 year old male admitted to the hospital service for CHF exacerbation, lactic acidosis, bilateral foot wounds and was noted to have positive blood cultures with Enterococcus. Partial left fifth ray resection secondary to osteomyelitis was performed 07/16/2023 and continues to progress slowly. Right transmetatarsal amputation performed 12/06/2023 with delayed closure of amputation site 12/10/2023. Okay for transfer/discharge from podiatry standpoint will follow-up outpatient. New dressings applied at today's visit as above Sutures and lexi removed from right transmetatarsal amputation site, stable interval healing appreciated. Weightbearing status: Weightbearing as tolerated with Darco shoe to the left foot Right heel touch for transfers with posterior splint Attestations Medical Necessity Statement*: Bilateral diabetic foot ulcer Coding Level of Care Code Acute Code for [facility] Fwd Diagnoses Non-pressure chronic ulcer of other part of left foot with fat layer exposed L97.522 Status post transmetatarsal amputation of right foot Z89.431 Peripheral arterial disease I73.9 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 mellitus E11.42
--- NOTE | 2024-01-09 16:32 | P.CONIM_ITS ---
Providers/Reason For Consult 2 Consulting Physician/Specialty*: Callie Claros MD/ Infectious disease Reason for Consult*: recurrent enterococcus bacteremia Requesting Physician: Chevy Arellano DO Attending Physician: Chevy Arellano DO Primary Care Provider: Rowdy Sheldon DO History of Present Illness History of Present Illness Surendra Roland is a 73 year old male past medical history of diabetes mellitus, dyslipidemia, hypertension, peripheral arterial disease requiring angioplasty, status post aortic valve replacement which is bioprosthetic, atrial fibrillation, h/o multiple episodes of osteomyelitis necessitating varying levels of amputation in the past. He was recently admitted to the hospital between December 04, 2022 to December 13, 2023 after presenting with sepsis and gangrene of the right foot. He was noted to have critical limb ischemia of the right lower extremity and underwent a peripheral angiogram.Right SFA was found to be totally occluded from ostial to mid segment with weak collaterals. He underwent successful revascularization with balloon angioplasty with excellent flow. Blood culture on this admission was positive for amp-S Enterococcus faecalis. On December 06, 2023 he underwent a transmetatarsal amputation for source control. Foot x ray at the time without signs of osteomyelitis. Per review of op note from podiatry gangrenous changes were noted in the right forefoot especially at the fifth toe with a black eschar. Devitalized tissue was removed. Patient tolerated the procedure and then underwent delayed primary closure on on 12/10/23. Blood cx had cleared prior to discharge. He was discharged to SNF on iv unasyn until December 20, 2023, completing 2 weeks of abx since amputation. He has been undergoing 3X weekly dressing change to left foot + offloading with with diabetic shoe since discharge at SNF. On f/up visit on 12/25, wound was noted to be healing well. His hospital course had been notable also for development of heart failure, acute kidney injury. It appears he recently left the intermediate and presented to the emergency room on January 05, 2024 with increasing shortness of breath for the last 1 to 2 days prior to admission. He had additionally gained 40 pounds over the course of the past month. He was admitted in view of acute on chronic heart failure with preserved ejection fraction exacerbation. He is on diuresis for the same. He was found to have significant lactic acidosis which prompted infectious source evaluation. Blood cultures have returned with Enterococcus faecalis. Amputation site was evaluated by podiatry, there were no gross signs of fluctuance purulence or periwound erythema.Site appears to have improved since last seen. He has chronic wounds over his left foot that do not apepar to be grossly infected. X-ray of both feet do not show any signs of osteomyelitis. Patient has leukocytosis on admission to 11.85. He is currently on treatment with Zosyn since admission. ID service consulted for further recommendations. Review of Systems 2 General: Reports: 10 or more systems reviewed and unremarkable except in HPI and below Const: Denies: fever(s), chills or body aches Eyes: Denies: change in vision, blurry vision or photophobia ENMT: Reports: hoarseness; Denies: throat pain, enlarged tonsils, odynophagia or nasal congestion Card: Denies: chest pain, palpitations, irregular heart rhythm, edema, swelling of feet/ankles, lightheadedness, pre-syncope, dyspnea on exertion or orthopnea Resp: Denies: dyspnea, productive cough, non-productive cough, wheezing, stridor, pain on inspiration, change in phlegm color, hemoptysis or chest congestion GI: Denies: abdominal pain, nausea, vomiting, hematemesis, coffee ground emesis, dysphagia, heartburn, diarrhea, constipation, GI cramping, change in stool character, hematochezia or melena : Denies: flank pain, dysuria, urinary frequency, urinary urgency, urinary hesitancy or hematuria Musc: Denies: neck pain, back pain, extremity pain, joint swelling, joint warmth or deformity Neuro: Denies: headache(s), numbness in extremities, weakness in extremities, sensory changes, difficulty walking, frequent falls, dizziness, vertigo, behavioral changes, Slurred speech present or seizure-like activity Psych: Denies: anxiety, depression, suicidal ideation or homicidal ideation Endo: Denies: polyuria, polydipsia, tired all the time, cold intolerance or hot flashes Lit/Lymph: Denies: easy bruising or easy bleeding Medications/Allergies Home Medications Medication Instructions Recorded Confirmed Last Taken Type duloxetine 60 mg capsule,delayed 60 mg PO BEDTIME 02/22/20 01/06/24 12/03/23 History release (Cymbalta) empagliflozin 25 mg tablet 25 mg PO QAM 05/06/21 01/06/24 12/04/23 History (Jardiance) multivitamin 1 tab PO QAM 05/06/21 01/06/24 11/05/23 History cholecalciferol (vitamin D3) 25 25 mcg PO QAM 08/01/21 01/06/24 12/03/23 History mcg (1,000 unit) capsule flash glucose sensor (FreeStyle #1 ea 05/01/22 01/06/24 10/11/22 History Marisela 14 Day Sensor kit) sertraline 50 mg tablet 50 mg PO QAM 11/14/22 01/06/24 12/03/23 History Diabetic shoes with 3 pair of #1 ea 11/28/22 01/06/24 Unknown Rx inserts tamsulosin 0.4 mg capsule (Flomax) 0.8 mg (2 x 0.4 mg) PO BEDTIME #14 07/23/23 01/06/24 11/04/23 Rx caps Vit B-12 1,000 mcg PO DAILY 10/24/23 01/06/24 11/05/23 History carvedilol 3.125 mg tablet (Coreg) 3.125 mg PO BID 10/24/23 01/06/24 12/04/23 History levothyroxine 125 mcg tablet 125 mcg PO DAILY 10/24/23 01/06/24 12/03/23 History ferrous sulfate 325 mg (65 mg 325 mg PO DAILY 11/06/23 01/06/24 Unknown History iron) tablet (Iron (ferrous sulfate)) aspirin 81 mg tablet,delayed 81 mg PO DAILY #90 tabs 11/07/23 01/06/24 12/03/23 Rx release clopidogrel 75 mg tablet 75 mg PO DAILY #90 tabs 11/07/23 01/06/24 12/03/23 Rx hydrocodone 5 mg-acetaminophen 325 1 tab PO Q6H PRN pain #14 tabs 12/02/23 01/06/24 Unknown Rx mg tablet atorvastatin 40 mg tablet 20 mg (1/2 x 40 mg) PO BEDTIME #30 12/13/23 01/06/24 Unknown Rx tabs insulin glargine 100 unit/mL (3 10 unit (0.1 mL) SUBCUT QPM #15 mL 12/13/23 01/06/24 12/03/23 Rx mL) subcutaneous pen (Lantus Solostar U-100 Insulin) insulin lispro 100 unit/mL See Protocol SUBCUT TID #15 mL 12/13/23 01/06/24 Unknown Rx subcutaneous pen (Humalog KwikPen (U-100) Insulin) bumetanide 1 mg tablet 1 mg PO 2XD 01/06/24 01/06/24 Unknown History Allergies Allergy/AdvReac Type Severity Reaction Status Date / Time No Known Allergies Allergy Verified 12/26/23 14:21 Current Medications Generic Name Dose Route Start Last Admin Trade Name Freq PRN Reason Stop Dose Admin Hydrocodone Bitart/Acetaminophen 1 tab 01/06/24 00:19 01/08/24 20:45 Hydrocodone-Acetaminophen 5-325 Mg Tablet PO 1 tab Q6H PRN Administration pain Aspirin 81 mg 01/06/24 09:00 01/09/24 08:12 Aspirin 81 Mg Ec Tablet PO 81 mg DAILY JYOTI Administration Atorvastatin Calcium 20 mg 01/06/24 21:00 01/08/24 20:45 Atorvastatin 40 Mg Tablet PO 20 mg BEDTIME JYOTI Administration Bumetanide 2 mg 01/06/24 20:30 01/09/24 08:11 Bumetanide 0.25 Mg/Ml Sdv 10 Ml IVP 2 mg Q12H JYOTI Administration Carvedilol 3.125 mg 01/06/24 09:00 01/06/24 08:10 Carvedilol 3.125 Mg Tablet PO 3.125 mg BID JYOTI Administration Clopidogrel Bisulfate 75 mg 01/06/24 09:00 01/09/24 08:12 Clopidogrel 75 Mg Tablet PO 75 mg DAILY JYOTI Administration Duloxetine HCl 60 mg 01/06/24 21:00 01/08/24 20:45 Duloxetine 60 Mg Capsule PO 60 mg BEDTIME JYOTI Administration Heparin Sodium (Porcine) 5,000 unit 01/06/24 00:19 01/09/24 11:40 Heparin 5,000 Unit/Ml Inj 1 Ml SUBCUT 5,000 unit Q12H JYOTI Administration Piperacillin Sod/Tazobactam 50 mls @ 12.5 mls/hr 01/06/24 01:00 01/09/24 12:30 Sod 3.375 gm/ Sodium Chloride IV Infused Q8H JYOTI Infusion Albumin Human 25 g in 100 mls @ 60 mls/hr 01/06/24 20:00 01/09/24 10:00 Albumin IV Infused Q12H JYOTI Infusion Insulin Glargine 13 unit 01/06/24 21:00 01/08/24 21:35 Insulin Glargine 100 Units/1 Ml SUBCUT 13 unit BEDTIME JYOTI Administration Insulin Human Lispro 0 unit 01/06/24 08:00 01/09/24 11:07 Insulin Lispro 100 Unit/1 Ml SUBCUT Not Given WM&BEDTIME JYOTI Protocol Insulin Human Lispro 10 unit 01/08/24 11:00 01/09/24 11:39 Insulin Lispro 100 Unit/1 Ml SUBCUT 10 unit AC JYOTI Administration Levothyroxine Sodium 125 mcg 01/06/24 09:00 01/09/24 08:12 Levothyroxine 125 Mcg Tablet PO 125 mcg DAILY JYOTI Administration Sertraline HCl 50 mg 01/07/24 09:00 01/09/24 08:12 Sertraline 50 Mg Tablet PO 50 mg DAILY JYOTI Administration Tamsulosin HCl 0.8 mg 01/06/24 21:00 01/08/24 20:46 Tamsulosin 0.4 Mg Capsule PO 0.8 mg BEDTIME JYOTI Administration Vitamin D 1,000 unit 01/09/24 09:00 01/09/24 08:24 Cholecalciferol (Vitamin D3) 1,000 Unit Tablet PO 1,000 unit DAILY JYOTI Administration PFSH Acute 2 PFSH: Medical History Contrast-induced nephropathy Abscess PVD (peripheral vascular disease) 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 on 07/21/2021 Benign prostatic hyperplasia CKD (chronic kidney disease) Peripheral arterial disease Limb ischemia Dyslipidemia Osteomyelitis of foot Diabetic wet gangrene of the foot Diabetes EZEQUIEL (acute kidney injury) Non-pressure chronic ulcer of other part of left foot with fat layer exposed Cardiomyopathy Bradycardia Aortic valve disease 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 mellitus MSSA (methicillin susceptible Staphylococcus aureus) infection Gangrene Acute hypokalemia Osteomyelitis of toe of left foot History of nonmelanoma skin cancer Atrial fibrillation Paroxysmal Chronic anticoagulation Xarelto Hypertensive urgency NSTEMI (non-ST elevated myocardial infarction) Congestive heart failure Anticoagulation adequate with anticoagulant therapy Xarelto Varicose vein of leg Obesity HTN (hypertension) Diabetes TIA (transient ischemic attack) Surgical History S/P aortic valve replacement with bioprosthetic valve S/P cholecystectomy S/P cataract extraction S/P AVR (aortic valve replacement) Bioprosthetic, bovine Family History Father Diabetes Hypertension Grandfather Diabetes PATERNAL Hypertension PATERNAL Social History Smoking and tobacco/nicotine status: former use of tobacco/nicotine Alcohol intake: former Substance/Drug Use: never Marital status: / service: No Current occupational status: retired Current occupation: retired from [employer] Vitals/I&O/Wt Last Vital Signs Temp 98.2 F 01/09/24 14:30 Pulse 63 01/09/24 14:30 Resp 16 01/09/24 14:30 BP 121/55 01/09/24 14:30 Pulse Ox 98 01/09/24 14:30 O2 Del Method Room Air 01/08/24 11:56 O2 Flow Rate 2 01/07/24 20:00 01/09/24 01/09/24 01/09/24 06:59 14:59 22:59 Intake Total 530 / 1780 1130 / 1130 Output Total 1450 / 5150 1150 / 1150 Balance -920 / -3370 -20 / -20 Weight last 48 hrs Weight 100.108 kg Weight 100.108 kg Weight 104.326 kg Weight 102.512 kg Physical Exam 2 Narrative: General: No acute distress, AO x3 HEENT: PERRLA, pupils bilaterally equal and reactive, pallors not present Chest: Normal vesicular breath sounds, no added sounds, equal good air entry bilaterally CVS: S1-S2 regular, no murmurs, no tachycardia, no gallops, no rubs Abdomen: Soft, nontender, no organomegaly, bowel sounds present Neuro: No focal deficits, no facial deformity, AO x3, power 5/5 in all limbs Urinary Catheter Management: Peoples: Cath Placed During This Visit: yes Reason for Continuing Indwelling Catheter: Accurate Measurement of Urinary Output in Critically Ill Patients Urinary Catheter Date of Insertion: 01/06/24 Urinary Catheter Time of Insertion: 15:30 Data 01/06/24 02:05 01/09/24 03:57 Micro: Microbiology 01/05/24 20:29 Blood Culture - Final Blood Enterococcus faecalis Spec #: [id number] Dariel: 01/05/24 Status: COMP Req #: [id number] Recd: 01/05/[address]: Sukhdev Mckeon DO Src: Blood SpDesc: Ordered: Bcult Procedure Result Verified Site Blood Culture Final 01/08/24-1704 4 OF 4 BOTTLES POSITIVE DIRECT GRAM STAIN: GRAM POSITIVE COCCI IN CHAINS IDENTIFICATION BY DIRECT PCR TESTING Organism 1 Enterococcus faecalis Growth 4 BOTTLES Gram Stain Charge Charge for Gram Stain CRITICAL RESULT YES/NO: YES CRITICAL CALLED BY: JIAN TO AND READ BACK BY: EBONY DATE: 01/06/24 TIME: 1100 E faecalis M.I.C. RX --------- ------ * Ampicillin <=2 S * Linezolid 2 S * Penicillin 8 S Vancomycin 2 S Gentamicin Synergy Screen >500 R Daptomycin <=0.5 S Enterococcus faecalis: Gram Pos Combo 33-MScan Gentamicin Synergy Screen R Blood Culture Preliminary (changed) 01/06/24-1099 4 OF 4 BOTTLES POSITIVE DIRECT GRAM STAIN: GRAM POSITIVE COCCI IN CHAINS IDENTIFICATION BY DIRECT PCR TESTING RESULTS TO FOLLOW Organism 1 Enterococcus faecalis Growth 4 BOTTLES Gram Stain Charge Charge for Gram Stain CRITICAL RESULT YES/NO: YES CRITICAL CALLED BY: JIAN TO AND READ BACK BY: EBONY DATE: 01/06/24 TIME: 1100 Spec #: [id number] Dariel: 01/05/24 Status: RES Req #: [id number] Recd: 01/05/[address]: Sukhdev Mckeon DO Src: Blood SpDesc: Ordered: Bcult Procedure Result Verified Site Blood Culture Preliminary 01/06/24-1100 4 OF 4 BOTTLES POSITIVE DIRECT GRAM STAIN: GRAM POSITIVE COCCI IN CHAINS IDENTIFICATION BY PCR RESULTS TO FOLLOW Organism 1 Enterococcus faecalis Growth 4 BOTTLES CRITICAL RESULT YES/NO: YES CRITICAL CALLED BY: JIAN TO AND READ BACK BY: EBONY DATE: 01/06/24 TIME: 1100 Blood Culture Preliminary (changed) 01/05/24-2039 SPECIMEN COLLECTED Spec #: [id number] Dariel: 12/08/23-0 Status: COMP Req #: [id number] Recd: 12/08/[address]: Michelle Castelan MD Src: Blood SpDesc: Ordered: Bcult Procedure Result Verified Site Blood Culture Final 12/13/23 NO GROWTH AFTER 5 DAYS Blood Culture Preliminary (changed) 12/09/23 NEGATIVE TO DATE Blood Culture Preliminary (changed) 12/08/23 SPECIMEN COLLECTED Spec #: [id number] Dariel: 12/08/23 Status: COMP Req #: [id number] Recd: 12/08/[address]: Michelle Castelan MD Src: Blood SpDesc: Ordered: Bcult Procedure Result Verified Site Blood Culture Final 12/13/23 NO GROWTH AFTER 5 DAYS Blood Culture Preliminary (changed) 12/09/23 NEGATIVE TO DATE Blood Culture Preliminary (changed) 12/08/23 SPECIMEN COLLECTED Spec #: [id number] Dariel: 12/06/23 Status: COMP Req #: [id number] Recd: 12/06/[address]: Michelle Castelan MD Src: Blood SpDesc: Ordered: Bcult Procedure Result Verified Site Blood Culture Final 12/11/23 NO GROWTH AFTER 5 DAYS Blood Culture Preliminary (changed) 12/07/23 NEGATIVE TO DATE Blood Culture Preliminary (changed) 12/06/23 SPECIMEN COLLECTED Spec #: [id number] Dariel: 12/06/23 Status: COMP Req #: [id number] Recd: 12/06/[address]: Michelle Castelan MD Src: Blood SpDesc: Ordered: Bcult Procedure Result Verified Site Blood Culture Final 12/11/23 NO GROWTH AFTER 5 DAYS Blood Culture Preliminary (changed) 12/07/23 NEGATIVE TO DATE Blood Culture Preliminary (changed) 12/06/23 SPECIMEN COLLECTED Spec #: [id number] Dariel: 12/04/23 Status: COMP Req #: [id number] Recd: 12/04/[address]: Biju Delacruz DO Src: Blood SpDesc: Ordered: Bcult Procedure Result Verified Site Blood Culture Final 12/08/23 4 OF 4 BOTTLES POSITIVE DIRECT GRAM STAIN: GRAM POSITIVE COCCI IN CHAINS IDENTIFICATION BY DIRECT PCR Organism 1 Enterococcus faecalis Growth 4 BOTTLES Gram Stain Charge Charge for Gram Stain CRITICAL RESULT YES/NO: YES CRITICAL CALLED BY: RT TO AND READ BACK BY: CARLOS DATE: 12/05/23 TIME: 1035 E faecalis M.I.C. RX --------- ------ * Ampicillin <=2 S * Linezolid 2 S * Penicillin 8 S Vancomycin 2 S Gentamicin Synergy Screen >500 R Daptomycin <=0.5 S Enterococcus faecalis: Gram Pos Combo 33-MScan Gentamicin Synergy Screen R Blood Culture Preliminary (changed) 12/05/23-1035 4 OF 4 BOTTLES POSITIVE DIRECT GRAM STAIN: GRAM POSITIVE COCCI IN CHAINS IDENTIFICATION BY DIRECT PCR RESULTS TO FOLLOW Organism 1 Enterococcus faecalis Growth 4 BOTTLES Gram Stain Charge Charge for Gram Stain CRITICAL RESULT YES/NO: YES CRITICAL CALLED BY: RT TO AND READ BACK BY: CARLOS DATE: 12/05/23 TIME: 1035 Spec #: [id number] Dariel: 12/04/23 Status: COMP Req #: [id number] Recd: 12/04/23-[address]: Biju Delacruz DO Src: Blood SpDesc: Ordered: Bcult Procedure Result Verified Site Blood Culture Final 12/09/23-1601 4 OF 4 BOTTLES POSITIVE DIRECT GRAM STAIN: GRAM POSITIVE COCCI IN CHAINS IDENTIFICATION BY DIRECT PCR SENSITIVITIES ON CULTURE# [id number] Organism 1 Enterococcus faecalis Growth 4 BOTTLES Blood Culture Preliminary (changed) 12/05/23-183 NEGATIVE TO DATE Blood Culture Preliminary (changed) 12/04/23-184 SPECIMEN COLLECTED Other data: Ordering Provider/Ordering MD: Garrick Duggan DPM Date of Service: 01/06/24 Procedure(s): XR foot RT min 3V* [id number] Accession Number(s): [id number] Report Number: [id number] WS: [id number] Examination: XR foot RT min 3V* [id number] Reason for Exam: right foot wound Date: January 06, 2024 Comparison: December 04, 2023 Findings: Postop surgical changes are identified with a right-sided transmetatarsal amputation. Skin lexi are present. Bandaging around the distal foot is noted. The bone density is diminished. The right foot lies within a splint. Impression: Status post transmetatarsal amputation of the right foot. Ordering Provider/Ordering MD: Chevy Arellano DO Date of Service: 01/06/24 Procedure(s): XR foot LT 2V 20075 Accession Number(s): [id number] Report Number: [id number] PROCEDURE INFORMATION: Exam: XR Left Foot Exam date and time: 01/06/2024 12:40 PM Age: 73 years old Clinical indication: Condition or disease; Other: Wound; Prior surgery; Surgery date: 6+ months; Surgery type: Toe amputation; Additional info: Infection, R. O osteomyelitis TECHNIQUE: Imaging protocol: Radiologic exam of the left foot. Views: 1 or 2 views. COMPARISON: CR XR foot LT min 3V* [id number] 06/28/2023 12:21 PM FINDINGS: Bones/joints: The patient is status post amputation of the 4th and 5th rays at the level of the mid shaft of the metatarsals. This is new from radiographs of 06/28/2023 No acute fracture or dislocation evident. No focal lytic process is visualized. Soft tissues: There is soft tissue swelling of the forefoot. XR/XR foot LT 2V [id number] IMPRESSION: Postsurgical findings and soft tissue swelling no acute osseous abnormality identified. [address] [address] XRay Report Signed Patient: Surendra Roland Unit #: [id number] : 1950 Age/Sex: 73 / M ADM Date: 01/05/24 Loc: ER Room/Bed: Attending Dr: Ordering Provider/Ordering MD: Sukhdev Mckeon DO Date of Service: 01/05/24 Procedure(s): XR chest 1V portable [id number] Accession Number(s): [id number] Report Number: [id number] PROCEDURE INFORMATION: Exam: XR Chest Exam date and time: 01/05/2024 8:33 PM Age: 73 years old Clinical indication: Shortness of breath; Prior surgery; Surgery date: 6+ months; Patient HX: Respiratory distress; SOB; HX cabg TECHNIQUE: Imaging protocol: Radiologic exam of the chest. Views: 1 view. COMPARISON: CR XR chest 1V portable [id number] 12/11/2023 8:06 AM FINDINGS: Tubes, catheters and devices: There are sternal wires consistent with previous sternotomy incision. Wires. Lungs: Hypoventilation. Increased right lung peribronchial vascular indistinctness which can be seen with pulmonary edema. Pleural spaces: No pneumothorax, significant pleural effusion. Heart/Mediastinum: Mild cardiomegaly. Bones/joints: Unremarkable. XR/XR chest 1V portable [id number] IMPRESSION: Mild pulmonary edema, improved from prior imaging dated 12/11/2023. NAME: Surendra Roland LOC: [facility] U #: [id number] AGE/SX: 73/M ROOM: 250 R E01/06/[address]: Chevy Arellano DO : 1950 BED: 1 D IS: FAX #: STATUS: ADM IN OC: Spec : [id number] Dariel: 01/05/24 Status: COMP Req : [id number] Recd: 01/05/[address]: Sukhdev Mckeon DO Ordered: UA Test Low Normal High Flag Reference Site Ua Mac Ur Color Yellow Yellow Appearance Clear CLEAR pH 5 5-7 Spec. Farrell 1.010 1.005- 1.030 UA Prot Neg Negative Ur Glu UA 4+ H Normal Ur Ketone Negative Negative Blood Urine Neg Negative Ur Nitrate Negative Negative Ur Bilirubin Neg Negative Urobilinogen Neg Negative mg/dL Ur Florecita Esterase Negative Negative A&P Assessment and plan (1) Bacteremia due to Enterococcus: (2) S/P aortic valve replacement with bioprosthetic valve: (3) Infective endocarditis: Qualifiers: Chronicity: subacute Infective endocarditis organism: bacterial Qualified Code(s): I33.0 - Acute and subacute infective endocarditis Plan 73-year-old male with recent admission for gangrene of the right foot, status post transmetatarsal amputation. Hospital course in December complicated by Enterococcus faecalis (amp susceptible) bacteremia thought to be related to gangrene and infection of the foot, treated with 14 days of IV antibiotics. Blood cultures noted to be clear from December 08, 2023. Patient currently admitted with acute on chronic CHF exacerbation. Noted to have leukocytosis and high lactate which prompted infectious evaluation. Blood cultures on current admission again revealing amp susceptible Enterococcus faecalis. Site of transmetatarsal amputation on the right side appears to be healing well overall. There are some wounds on left plantar aspect which are chronic since July 2023, unchanged over previous exams. No gross signs of foot infection overall. X-ray of bilateral feet without any osseous abnormalities concerning for osteomyelitis. UA unremarkable, not concerning for UTI. Denies any complaints of dysuria. Patient has a prior history of bioprosthetic aortic valve replacement. Given recurrence of positive blood cultures with same organism, with transient clearance makes me concerned for infective endocarditis of the bioprosthetic valve. Discontinue piperacillin/tazobactam Change antibiotics to ampicillin 2 g IV every 4 hours (dosed for current creatinine clearance of 60) plus ceftriaxone 2 g IV every 12 hours for presumptive treatment of infective endocarditis. Isolate noted to be displaying high level gentamicin resistance. Recommend to obtain DAGMAR Obtain stat blood cultures to ascertain clearance. defer placement of PICC line until documented clearance of blood cx Check CBC to trend leukocytosis Will follow. Consult Attestations 2 Medical Necessity Statement: per admitting Coding Level of Care Code Acute Code for Chg Fwd High MDM includes number and complexity of problems actively addressed during encounter, amount and/or complexity of data reviewed/ordered and described risk of complication, morbidity or mortality of management as documented Diagnoses Bacteremia due to Enterococcus R78.81; B95.2 S/P aortic valve replacement with bioprosthetic valve Z95.3 Subacute bacterial endocarditis I33.0 Chronicity: subacute Infective endocarditis organism: bacterial
[2024-01-09 16:46] LABS: Glucose Point of Care 88 mg/dL (70-110)
[2024-01-09 17:17] LABS: Erythrocyte Sedimentation Rate 9 mm/hr (0-10)
--- NOTE | 2024-01-09 17:19 | PM.CONSULT ---
Providers/Reason For Consult Consulting Physician/Specialty*: JOSÉ MIGUEL Garcia MD/ cardiology Reason for Consult*: possible endocarditis/ to perform a DAGMAR Requesting Physician: Dr. Arellano Attending Physician: Chevy Arellano DO Primary Care Provider: Rowdy Sheldon DO History of Present Illness History of Present Illness Surendra Roland is a 73 year old male with a history of aortic valve replacement, LV dysfunction, congestive heart failure, peripheral artery disease, status post multiple peripheral intervention, is presenting with progressive shortness of breath. He was found to be in congestive heart failure. He also had lactic acidosis. The blood culture grew enterococci. He was recently discharged the hospital where he was admitted with features of osteomyelitis, dry gangrene of the foot requiring transmetatarsal amputation. He was treated with IV antibiotics and was sent to SNF for continuing the IV antibiotic. Based on the clinical examination and x-rays, he has no evidence of any recurrence of osteomyelitis. He was found to have some features of prosthetic valve stenosis based on previous echocardiogram. Cardiology is consulted mainly to perform a DAGMAR to rule out any endocarditis. Currently he has no fever. No history for endocarditis. This patient has been in and out of hospital for the last 3 years with osteomyelitis of his foot, requiring multiple amputations. He had a DAGMAR in October 2022 and was found to have no evidence of endocarditis. He had multiple peripheral interventions on either side. Most recently he had intervention of the right SFA when he presented with the features of acute limb ischemia and osteomyelitis. The right SFA was totally occluded. He underwent ELECTRIC GOLF CART REPAIRER of this lesion. a year ago, he had intervention of the left external iliac and SFA. He had a Myocardial perfusion imaging in December of last year which revealed no evidence of ischemia . LV ejection fraction was found to be 45 to 50% in May of last year by echocardiogram. Patient has no difficulty in swallowing. No chest pain. Shortness of breath is significantly improved. No history of any upper GI bleed. No history for gastric ulcers. Review of Systems Narrative: CONSTITUTIONAL: No fever or chills. EYES: No blurring of vision or other visual disturbances lately. ENT: No hoarseness of voice, auditory disturbances or sore throat. CARDIOVASCULAR: As mentioned above. RESPIRATORY: No significant cough. GASTROINTESTINAL: No hematemesis or melena. GENITOURINARY: Chronic kidney disease INTEGUMENTARY: No skin rashes or history of skin cancer. NEURO: No transient ischemic attacks or amaurosis. PSYCHIATRIC: No history of psychosis or major depression. HEMATOLOGIC: No bleeding disorders or significant anemia. ENDOCRINE: Type 2 diabetes MUSCULOSKELETAL: Transmetatarsal amputation of the right foot, last month ALLERGY/IMMUNOLOGY: As mentioned above. Medications/Allergies Home Medications Medication Instructions Recorded Confirmed Last Taken Type duloxetine 60 mg capsule,delayed 60 mg PO BEDTIME 02/22/20 01/06/24 12/03/23 History release (Cymbalta) empagliflozin 25 mg tablet 25 mg PO QAM 05/06/21 01/06/24 12/04/23 History (Jardiance) multivitamin 1 tab PO QAM 05/06/21 01/06/24 11/05/23 History cholecalciferol (vitamin D3) 25 25 mcg PO QAM 08/01/21 01/06/24 12/03/23 History mcg (1,000 unit) capsule flash glucose sensor (FreeStyle #1 ea 05/01/22 01/06/24 10/11/22 History Marisela 14 Day Sensor kit) sertraline 50 mg tablet 50 mg PO QAM 11/14/22 01/06/24 12/03/23 History Diabetic shoes with 3 pair of #1 ea 11/28/22 01/06/24 Unknown Rx inserts tamsulosin 0.4 mg capsule (Flomax) 0.8 mg (2 x 0.4 mg) PO BEDTIME #14 07/23/23 01/06/24 11/04/23 Rx caps Vit B-12 1,000 mcg PO DAILY 10/24/23 01/06/24 11/05/23 History carvedilol 3.125 mg tablet (Coreg) 3.125 mg PO BID 10/24/23 01/06/24 12/04/23 History levothyroxine 125 mcg tablet 125 mcg PO DAILY 10/24/23 01/06/24 12/03/23 History ferrous sulfate 325 mg (65 mg 325 mg PO DAILY 11/06/23 01/06/24 Unknown History iron) tablet (Iron (ferrous sulfate)) aspirin 81 mg tablet,delayed 81 mg PO DAILY #90 tabs 11/07/23 01/06/24 12/03/23 Rx release clopidogrel 75 mg tablet 75 mg PO DAILY #90 tabs 11/07/23 01/06/24 12/03/23 Rx hydrocodone 5 mg-acetaminophen 325 1 tab PO Q6H PRN pain #14 tabs 12/02/23 01/06/24 Unknown Rx mg tablet atorvastatin 40 mg tablet 20 mg (1/2 x 40 mg) PO BEDTIME #30 12/13/23 01/06/24 Unknown Rx tabs insulin glargine 100 unit/mL (3 10 unit (0.1 mL) SUBCUT QPM #15 mL 12/13/23 01/06/24 12/03/23 Rx mL) subcutaneous pen (Lantus Solostar U-100 Insulin) insulin lispro 100 unit/mL See Protocol SUBCUT TID #15 mL 12/13/23 01/06/24 Unknown Rx subcutaneous pen (Humalog KwikPen (U-100) Insulin) bumetanide 1 mg tablet 1 mg PO 2XD 01/06/24 01/06/24 Unknown History Allergies Allergy/AdvReac Type Severity Reaction Status Date / Time No Known Allergies Allergy Verified 12/26/23 14:21 Current Medications Generic Name Dose Route Start Last Admin Trade Name Freq PRN Reason Stop Dose Admin Hydrocodone Bitart/Acetaminophen 1 tab 01/06/24 00:19 01/08/24 20:45 Hydrocodone-Acetaminophen 5-325 Mg Tablet PO 1 tab Q6H PRN Administration pain Aspirin 81 mg 01/06/24 09:00 01/09/24 08:12 Aspirin 81 Mg Ec Tablet PO 81 mg DAILY JYOTI Administration Atorvastatin Calcium 20 mg 01/06/24 21:00 01/08/24 20:45 Atorvastatin 40 Mg Tablet PO 20 mg BEDTIME JYOTI Administration Bumetanide 2 mg 01/06/24 20:30 01/09/24 08:11 Bumetanide 0.25 Mg/Ml Sdv 10 Ml IVP 2 mg Q12H JYOTI Administration Carvedilol 3.125 mg 01/06/24 09:00 01/06/24 08:10 Carvedilol 3.125 Mg Tablet PO 3.125 mg BID JYOTI Administration Clopidogrel Bisulfate 75 mg 01/06/24 09:00 01/09/24 08:12 Clopidogrel 75 Mg Tablet PO 75 mg DAILY JYOTI Administration Duloxetine HCl 60 mg 01/06/24 21:00 01/08/24 20:45 Duloxetine 60 Mg Capsule PO 60 mg BEDTIME JYOTI Administration Heparin Sodium (Porcine) 5,000 unit 01/06/24 00:19 01/09/24 11:40 Heparin 5,000 Unit/Ml Inj 1 Ml SUBCUT 5,000 unit Q12H JYOTI Administration Albumin Human 25 g in 100 mls @ 60 mls/hr 01/06/24 20:00 01/09/24 10:00 Albumin IV Infused Q12H JYOTI Infusion Insulin Glargine 13 unit 01/06/24 21:00 01/08/24 21:35 Insulin Glargine 100 Units/1 Ml SUBCUT 13 unit BEDTIME JYOTI Administration Insulin Human Lispro 0 unit 01/06/24 08:00 01/09/24 16:47 Insulin Lispro 100 Unit/1 Ml SUBCUT Not Given WM&BEDTIME JYOTI Protocol Insulin Human Lispro 10 unit 01/08/24 11:00 01/09/24 17:07 Insulin Lispro 100 Unit/1 Ml SUBCUT 10 unit AC JYOTI Administration Levothyroxine Sodium 125 mcg 01/06/24 09:00 01/09/24 08:12 Levothyroxine 125 Mcg Tablet PO 125 mcg DAILY JYOTI Administration Potassium Chloride 40 meq 01/09/24 18:00 01/09/24 17:05 Potassium Chloride Oral Liq 20 Meq/15 Ml Udc PO 40 meq BIDWM JYOTI Administration Sertraline HCl 50 mg 01/07/24 09:00 01/09/24 08:12 Sertraline 50 Mg Tablet PO 50 mg DAILY JYOTI Administration Tamsulosin HCl 0.8 mg 01/06/24 21:00 01/08/24 20:46 Tamsulosin 0.4 Mg Capsule PO 0.8 mg BEDTIME JYOTI Administration Vitamin D 1,000 unit 01/09/24 09:00 01/09/24 08:24 Cholecalciferol (Vitamin D3) 1,000 Unit Tablet PO 1,000 unit DAILY JYOTI Administration PFSH Acute PFSH: Medical History Contrast-induced nephropathy Abscess PVD (peripheral vascular disease) 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 on 07/21/2021 Benign prostatic hyperplasia CKD (chronic kidney disease) Peripheral arterial disease Limb ischemia Dyslipidemia Osteomyelitis of foot Diabetic wet gangrene of the foot Diabetes EZEQUIEL (acute kidney injury) Non-pressure chronic ulcer of other part of left foot with fat layer exposed Cardiomyopathy Bradycardia Aortic valve disease 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 mellitus MSSA (methicillin susceptible Staphylococcus aureus) infection Gangrene Acute hypokalemia Osteomyelitis of toe of left foot History of nonmelanoma skin cancer Atrial fibrillation Paroxysmal Chronic anticoagulation Xarelto Hypertensive urgency NSTEMI (non-ST elevated myocardial infarction) Congestive heart failure Anticoagulation adequate with anticoagulant therapy Xarelto Varicose vein of leg Obesity HTN (hypertension) Diabetes TIA (transient ischemic attack) Surgical History S/P aortic valve replacement with bioprosthetic valve S/P cholecystectomy S/P cataract extraction S/P AVR (aortic valve replacement) Bioprosthetic, bovine Family History Father Diabetes Hypertension Grandfather Diabetes PATERNAL Hypertension PATERNAL Social History Smoking and tobacco/nicotine status: former use of tobacco/nicotine Alcohol intake: former Substance/Drug Use: never Marital status: / service: No Current occupational status: retired Current occupation: retired from [employer] Vitals/I&O/Wt Last Vital Signs Temp 98.2 F 01/09/24 16:00 Pulse 61 01/09/24 16:00 Resp 17 01/09/24 16:00 BP 131/55 01/09/24 16:00 Pulse Ox 98 01/09/24 16:00 O2 Del Method Room Air 01/08/24 11:56 O2 Flow Rate 2 01/07/24 20:00 01/09/24 01/09/24 01/09/24 06:59 14:59 22:59 Intake Total 530 / 1780 1130 / 1130 1.875 / 1131.875 Output Total 1450 / 5150 1150 / 1150 Balance -920 / -3370 -20 / -20 1.875 / -18.125 Weight last 48 hrs Weight 220 lb 11.2 oz Weight 220 lb 11.2 oz Weight 230 lb Weight 226 lb Physical Exam Narrative: GENERAL: The patient is alert and oriented times three. Not in any acute distress. HEENT: Moderate pallor. No icterus or lymphadenopathy.Oral cavity: There are no mucous membrane lesions. NECK: Trachea appears to be central. No masses noted. No JVD or thyromegaly appreciated. RESPIRATORY: Chest is symmetrical. No intercostals muscle retraction or any accessory muscle activation. There is no chest wall tenderness. Breath sounds are heard bilaterally. No rales or rhonchi heard. No evidence of any consolidation. BREASTS: Deferred. HEART: The heart sounds are normal. No S3 or S4. Ejection stock murmur grade 3 or 6 in the aortic area. No diastolic murmurs. No pericardial rub ABDOMEN: No vessel pulsations or distention. No tenderness. No organomegaly appreciated. Bowel sounds are normally heard. : Deferred. RECTAL: Deferred. LYMPHATIC: No lymphadenopathy noted in the neck. EXTREMITIES: No edema or cyanosis. No clubbing. MUSCULOSKELETAL: No acute joint deformities or swelling SKIN: There are no significant rashes or ecchymosis NEUROPSYCHIATRIC: The patient is alert and oriented x3. Appears to be in a good mood. No tremors or rigidity noted. Urinary Catheter Management: Peoples: Cath Placed During This Visit: yes Reason for Continuing Indwelling Catheter: Accurate Measurement of Urinary Output in Critically Ill Patients Urinary Catheter Date of Insertion: 01/06/24 Urinary Catheter Time of Insertion: 15:30 Data 01/06/24 02:05 01/09/24 03:57 Other Labs: Laboratory Last Values WBC 11.85 10^3/uL (3.29-11.43) H 01/06/24 02:05 RBC 3.76 10^6/uL (3.85-5.65) L 01/06/24 02:05 Hgb 10.40 g/dL (11.27-16.99) L 01/06/24 02:05 Hct 35.0 % (37-53) L 01/06/24 02:05 MCV 93.1 fl (82-101) 01/06/24 02:05 MCH 27.7 pg (27-33) 01/06/24 02:05 MCHC 29.7 g/dL (30-55) L 01/06/24 02:05 RDW 18.5 % (12.1-15.1) H 01/06/24 02:05 Plt Count 126 10^3/cmm (157-399) L 01/06/24 02:05 MPV 11.0 fL (7.4-10.4) H 01/06/24 02:05 Neut % (Auto) 90.0 % 01/06/24 02:05 Lymph % (Auto) 3.2 % 01/06/24 02:05 [place] % (Auto) 5.7 % 01/06/24 02:05 Eos % (Auto) 0.2 % 01/06/24 02:05 Baso % (Auto) 0.3 % 01/06/24 02:05 Neut # (Auto) 10.67 10^3/uL (1.8-7.7) H 01/06/24 02:05 Lymph # (Auto) 0.4 10^3/uL (0.8-4.8) L 01/06/24 02:05 [place] # (Auto) 0.7 10^3/uL (0.2-0.9) 01/06/24 02:05 Eos # (Auto) 0.0 10^3/uL (0.0-0.8) 01/06/24 02:05 Baso # (Auto) 0.0 10^3/uL (0.0-0.1) 01/06/24 02:05 Nucleated RBC % (auto) 0 % 01/06/24 02:05 Nucleated RBCs # 0.0 /100WBC 01/06/24 02:05 ESR 9 mm/hr (0-10) 01/09/24 03:57 PT 17.50 SECONDS (12.1-14.9) H 01/05/24 18:56 INR 1.39 (0.8-1.2) H 01/05/24 18:56 Specimen Type Arterial 01/05/24 20:11 Sample Site Radial, right 01/05/24 20:11 ABG pH 7.46 (7.35-7.45) H 01/05/24 20:11 ABG pCO2 32.6 mmHg (35-45) L 01/05/24 20:11 ABG pO2 61.7 mmHg (80.0-100.0) L 01/05/24 20:11 ABG PO2/FiO2 Ratio 0 01/05/24 20:11 ABG HCO3 23.4 mmol/L (22-26) 01/05/24 20:11 ABG Base Excess 0.1 mmol/L (-2.0-2.0) 01/05/24 20:11 Sam Test Pos 01/05/24 20:11 Hematocrit 34.9 % (42-52) L 01/05/24 20:11 Hgb O2 Saturation 92.1 % (95-100) L 01/05/24 20:11 Carboxyhemoglobin 2.2 %THgb (0.4-20.1) 01/05/24 20:11 Methemoglobin 0.2 % (0.4-1.5) L 01/05/24 20:11 Total Hemoglobin 11.4 g/dL (14-18) L 01/05/24 20:11 O2 Delivery Device Nc 01/05/24 20:11 O2 Liters/Min 4.0 % 01/05/24 20:11 FiO2 36.0 % 01/05/24 20:11 [employer] ID Ed 01/05/24 20:11 Sodium 137 mmol/L (136-145) 01/09/24 03:57 Potassium 3.1 mmol/L (3.5-5.1) L 01/09/24 03:57 Chloride 96 mmol/L (98-107) L 01/09/24 03:57 Carbon Dioxide 29 mmol/L (22-29) 01/09/24 03:57 Anion Gap 15.1 (5-19) 01/09/24 03:57 BUN 31 mg/dL (8-23) H 01/09/24 03:57 Creatinine 1.7 mg/dL (0.7-1.2) H 01/09/24 03:57 GFR Calculation Not Reportable 01/09/24 03:57 Glucose 102 mg/dL (65-115) 01/09/24 03:57 POC Glucose 88 mg/dL (70-110) 01/09/24 16:40 Calculated Osmolality 291 mOsm/kg (285-295) 01/09/24 03:57 Lactic Acid 6.8 mmol/L (0.5-2.2) H* 01/05/24 18:56 Lactic Acid (Sepsis) 3.3 mmol/L (0.5-2.2) H 01/05/24 22:25 Calcium 8.5 mg/dL (8.5-10.5) 01/09/24 03:57 Phosphorus 2.9 mg/dL (2.5-4.5) 01/06/24 02:05 Magnesium 2.2 mg/dL (1.7-2.3) 01/07/24 04:16 Total Bilirubin 1.7 mg/dL (0.15-1.2) H 01/05/24 18:56 AST 23 U/L (0-40) 01/05/24 18:56 ALT 19 U/L (0-41) 01/05/24 18:56 Alkaline Phosphatase 139 U/L (40-130) H 01/05/24 18:56 C-Reactive Protein 56.6 mg/L (0.0-4.9) H 01/06/24 00:00 NT-Pro-B Natriuret Pep 04939 pg/mL (0-125) H 01/05/24 18:56 Total Protein 6.3 g/dL (6.6-8.7) L 01/05/24 18:56 Albumin 3.2 g/dL (3.5-5.2) L 01/05/24 18:56 Globulin 3.1 g/dL (1.3-4.6) 01/05/24 18:56 Procalcitonin 0.78 ng/mL (0-0.5) H 01/06/24 00:00 Urine Color Yellow (Yellow) 01/05/24 19:30 Urine Appearance Clear (CLEAR) 01/05/24 19:30 Urine pH 5 (5-7) 01/05/24 19:30 Ur Specific [place] 1.010 (1.005-1.030) 01/05/24 19:30 Urine Protein Neg (Negative) 01/05/24 19:30 Urine Glucose (UA) 4+ (Normal) H 01/05/24 19:30 Urine Ketones Negative (Negative) 01/05/24 19:30 Urine Blood Neg (Negative) 01/05/24 19:30 Urine Nitrate Negative (Negative) 01/05/24 19:30 Urine Bilirubin Neg (Negative) 01/05/24 19:30 Urine Urobilinogen Neg mg/dL (Negative) 01/05/24 19:30 Ur Leukocyte Esterase Negative (Negative) 01/05/24 19:30 Adenovirus (PCR) Not detected (NOT DETECT) 01/05/24 21:38 C. pneumoniae DNA (PCR) Not detected (NOT DETECT) 01/05/24 21:38 Coronavirus 229E (PCR) Not detected (NOT DETECT) 01/05/24 21:38 Human Metapneumovir PCR Not detected (NOT DETECT) 01/05/24 21:38 Influenza A (H1) PCR Not detected (NOT DETECT) 01/05/24 21:38 Influ A (H1/09) PCR Not detected (NOT DETECT) 01/05/24 21:38 Influenza A (H3) PCR Not detected (NOT DETECT) 01/05/24 21:38 Influenza Type A (PCR) Not detected (NOT DETECT) 01/05/24 21:38 Influenza Type B (PCR) Not detected (NOT DETECT) 01/05/24 21:38 M. pneumoniae (PCR) Not detected (NOT DETECT) 01/05/24 21:38 Parainfluenza 1 (PCR) Not detected (NOT DETECT) 01/05/24 21:38 Parainfluenza 2 (PCR) Not detected (NOT DETECT) 01/05/24 21:38 Parainfluenza 3 (PCR) Not detected (NOT DETECT) 01/05/24 21:38 Parainfluenza 4 (PCR) Not detected (NOT DETECT) 01/05/24 21:38 RSV Type A (PCR) Not detected (NOT DETECT) 01/05/24 21:38 RSV Type B (PCR) Not detected (NOT DETECT) 01/05/24 21:38 Entero/Rhino (PCR) Detected (NOT DETECT) A 01/05/24 21:38 SARS-CoV-2 (PCR) Not detected (NOT DETECT) 01/05/24 21:38 MRSA (PCR) Detected (NOT DETECTED) A 01/06/24 01:40 Micro: Microbiology 01/05/24 20:29 Blood Culture - Final Blood Enterococcus faecalis A&P Assessment and plan (1) Bacteremia due to Enterococcus: Patient apparently grew in the cocci in 2 out of 2 blood culture bottles, similar to the organism identified a month ago. Apparently had negative blood culture in between. In the absence of any recurrence of osteomyelitis, possibility of endocarditis is a strong consideration. Patient does not seems to have any peripheral signs of endocarditis (2) History of aortic valve replacement with bioprosthetic valve: Patient had the AVR approximately 12 years ago. He had some features of prosthetic valve stenosis based on the echocardiogram. (3) CHF exacerbation: Getting compensated. May continue on the current medications. Qualifiers: Heart failure type: systolic Qualified Code(s): I50.23 - Acute on chronic systolic (congestive) heart failure (4) PVD (peripheral vascular disease): Status post ELECTRIC GOLF CART REPAIRER bilaterally. Currently has no specific symptoms. Plan To better evaluate for endocarditis, it would be appropriate to go ahead and do a DAGMAR. This was discussed with the patient in detail. The risk of aspiration, bleeding, soft tissue injury, perforation of the stomach/esophagus and other concomitant complications were explained to the patient in detail. The patient understood this well and consented to proceed. We may go ahead and do schedule this procedure for tomorrow. Patient currently has no contraindication for the procedure. Coding Level of Care Code 40994 Diagnoses Bacteremia due to Enterococcus R78.81; B95.2 History of aortic valve replacement with bioprosthetic valve Z95.3 Acute on chronic systolic congestive heart failure I50.23 Heart failure type: systolic PVD (peripheral vascular disease) I73.9
[2024-01-09] MEDS: ampicillin 2,000 MG in sodium chloride 0.9% (plus) 50 ML 100 MG IV ×2 (17:57→22:09)
[2024-01-09 18:18] LABS: Anion Gap 15.5 (5-19); Blood Urea Nitrogen 32 mg/dL (8-23); C Reactive Protein 51.4 mg/L (0.0-4.9); Calcium 8.9 mg/dL (8.5-10.5); Carbon Dioxide 31 mmol/L (22-29); Chloride 96 mmol/L (98-107); Creatinine Clr Calc Pharmacy 42.6979; Glucose 89 mg/dL (65-115); Magnesium 2.2 mg/dL (1.7-2.3); Osmolality Calculated 294 mOsm/kg (285-295); Potassium 3.5 mmol/L (3.5-5.1); Sodium 139 mmol/L (136-145)
[2024-01-09] MEDS: tamsulosin 0.4 mg Capsule 0.800000000000000044 MG PO (20:11)
[2024-01-09] MEDS: atorvastatin 40 mg Tablet 20 MG PO (20:11)
[2024-01-09] MEDS: duloxetine 60 mg Capsule PO (20:11)
[2024-01-09] MEDS: HYDROcodone-acetaminophen 5-325 mg Tablet 1 TAB PO (20:22)
[2024-01-09 20:39] LABS: Glucose Point of Care 72 mg/dL (70-110)
[2024-01-10] VITALS (8 sets, daily range): BP systolic 134–166; BP diastolic 49–67; PULSE 54–80; RESP 16–18; TEMP 36.5–37; O2SAT 90–96; BMI 31.1
[2024-01-10] MEDS: heparin 5,000 unit/mL INJ 1 mL 5000 UNIT SUBCUT ×2 (00:55→13:34)
[2024-01-10] MEDS: cefTRIAXone 2,000 MG in sodium chloride 0.9% (plus) 50 ML 100 MG IV ×2 (00:55→13:34)
[2024-01-10] MEDS: ampicillin 2,000 MG in sodium chloride 0.9% (plus) 50 ML 100 MG IV ×6 (01:41→21:17)
[2024-01-10 04:28] LABS: Basophils # 0.1 10^3/uL (0.0-0.1); Basophils % 0.8 %; Eosinophils # 0.3 10^3/uL (0.0-0.8); Eosinophils % 3.7 %; Hematocrit 33.3 % (37-53); Lymphocytes # 0.8 10^3/uL (0.8-4.8); Lymphocytes % 9.2 %; Mean Corpuscular Hemoglobin 27.3 pg (27-33); Mean Platelet Volume 10.5 fL (7.4-10.4); Monocytes # 0.9 10^3/uL (0.2-0.9); Monocytes % 9.7 %; Neutrophils # 6.98 10^3/uL (1.8-7.7); Neutrophils % 76.2 %; Nucleated Red Blood Cells % 0 %; Platelet Count 137 10^3/cmm (157-399); Red Blood Count 3.66 10^6/uL (3.85-5.65); Red Cell Distribution Width 17.2 % (12.1-15.1); White Blood Count 9.16 10^3/uL (3.29-11.43)
[2024-01-10 04:49] LABS: Alanine Aminotransferase 18 U/L (0-41); Albumin Level 3.8 g/dL (3.5-5.2); Alkaline Phosphatase 89 U/L (40-130); Aspartate Amino Transferase 25 U/L (0-40); Blood Urea Nitrogen 32 mg/dL (8-23); Calcium 8.6 mg/dL (8.5-10.5); Carbon Dioxide 29 mmol/L (22-29); Chloride 96 mmol/L (98-107); Creatinine Clr Calc Pharmacy 42.6979; Globulin 2.7 g/dL (1.3-4.6); Glucose 87 mg/dL (65-115); Osmolality Calculated 292 mOsm/kg (285-295); Sodium 138 mmol/L (136-145); Total Bilirubin 1.6 mg/dL (0.15-1.2); Total Protein 6.5 g/dL (6.6-8.7)
[2024-01-10 06:28] LABS: Glucose Point of Care 101 mg/dL (70-110)
[2024-01-10] MEDS: levothyroxine 125 mcg Tablet PO (08:51)
[2024-01-10] MEDS: clopidogrel 75 mg Tablet PO (08:51)
[2024-01-10] MEDS: sertraline 50 mg Tablet PO (08:51)
[2024-01-10] MEDS: cholecalciferol (vitamin D3) 1,000 unit Tablet 1000 UNIT PO (08:52)
[2024-01-10] MEDS: aspirin 81 mg EC Tablet PO (08:52)
[2024-01-10] MEDS: potassium chloride oral liq 20 mEq/15 mL UDC 40 MEQ PO ×2 (08:53→18:37)
[2024-01-10] MEDS: bumetanide 0.25 mg/mL SDV 10 mL 2 MG IVP ×2 (08:58→20:52)
[2024-01-10] MEDS: albumin 25 G/100 ML BAG 60 G IV (09:06)
--- NOTE | 2024-01-10 10:10 | PC.SOCIAL ---
IMM Updated Updated pt on IMM. No questions voiced. Provided pt a copy. Initialed, dated, & timed copy in chart.
--- NOTE | 2024-01-10 10:54 | PC.NURSE ---
On unit for scheduled DAGMAR per Dr. Garcia
--- NOTE | 2024-01-10 11:00 | USCV_ITS ---
Surendra Roland Age: 73 Gender: M : 1950 Exam Date: 01/10/2024 11:06 Ordering Phys: Nelson Garcia MD ([email or web address]) Technologist: Марина Gerber Exam Location: [facility] [place] Indication: EVAL FOR INFECTION BP: 147 / 52 HR: 58 Rhythm: Sinus Technical Quality: Adequate MEASUREMENTS (Male / Female) Normal Values Medications IV propofol was administered by the anesthesia service Complications None Proc. Components The procedure was performed in the ICU.the patient was brought to the DAGMAR examination room in a fasting state after obtaining an informed consent. The DAGMAR probe was passed into the posterior pharynx , mid-esophagus, distal esophagus, and gastric fundus. DAGMAR was performed at multiple levels. The patient tolerated the procedure well and there were no complications. FINDINGS Left Ventricle Mildly dilated left-ventricular with a mild diffuse hypokinesia. Ejection fraction around 45 to 50% Right Ventricle Possibly of normal size ejection fraction. Right Atrium Mildly dilated Left Atrium Mildly dilated LA Appendage Patient with normal size with diminished contractility IA Septum Appears to be intact with no evidence of any interatrial shunt by color-flow Doppler Mitral Valve Mild to moderate mitral regurgitation Aortic Valve The bioprosthetic valve at the aortic position appears to be well-seated with thickening of the leaflet margins. No masses or vegetations were noted. mild perivalvular leak was noted Tricuspid Valve No gross abnormalities noted.trace to mild tricuspid valve regurgitation. Pulmonic Valve No masses or vegetations. Pericardium No pericardial effusion. Aorta Aortic root was of normal size. CONCLUSIONS 1. The bioprosthetic valve at the aortic position appears to be well-seated with thickening of the leaflet margins. No masses or vegetations were noted. mild perivalvular leak was noted. 2. Mild relative left ventricle with slight use hypokinesia. Ejection fraction around 45 to 50% 3. No mass or lesions were noted in the other valves. 4. Mild to moderate mitral regurgitation with trace to mild tricuspid regurgitation 5. Mildly dilated atria. 6. Aortic root of normal size with no evidence of aneurysm 7. Slightly diminished contractility of the left atrial appendage. Dr Nelson Garcia MD [facility] (Electronically Signed) Final Date: 10 January 2024 21:00 S
--- NOTE | 2024-01-10 11:09 | PC.NURSE ---
Dr. Garcia and Anaesthesia at bedside
--- NOTE | 2024-01-10 11:13 | P.ANESASSM_ITS ---
Pre-Anesthetic Assessment Height/Weight: Height 1.78 m Weight 98.475 kg Temp Pulse Resp BP Pulse Ox O2 Del Method O2 Flow Rate 98.6 F 60 16 166/67 94 Room Air 2 01/10/24 07:46 01/10/24 07:46 01/10/24 07:46 01/10/24 07:46 01/10/24 07:46 01/10/24 07:46 01/09/24 20:00 Last intake: Intake Last Liquid Date 01/10/24 Last Liquid Time 00:00 Last Solid Date 01/09/24 Last Solid Time 17:00 Social No alcohol and No tobacco Exam alert, oriented x 3, clear to auscultation bilaterally and regular rate & rhythm (2/6 holosystolic murmur) Airway Submandibular: within normal limits Cervical ROM: Other (limited CROM) Mallampati: Class I Pulmonary Cough and Shortness of Breath Recent viral pneumonia CV/HEM Coronary Artery Disease, Congestive Heart Failure, Hypertension and Murmur Chronic Renal Insufficiency Metabolic Diabetes Mellitus, Hyperlipidemia and Thyroid Disease [facility] [place] Osteoarthritis/DJD Anesthetic Plan ASA status: 4E Anesthesia: MAC Medications/Allergies Home Medications Medication Instructions Recorded Confirmed Last Taken Type duloxetine 60 mg capsule,delayed 60 mg PO BEDTIME 02/22/20 01/06/24 12/03/23 History release (Cymbalta) empagliflozin 25 mg tablet 25 mg PO QAM 05/06/21 01/06/24 12/04/23 History (Jardiance) multivitamin 1 tab PO QAM 05/06/21 01/06/24 11/05/23 History cholecalciferol (vitamin D3) 25 25 mcg PO QAM 08/01/21 01/06/24 12/03/23 History mcg (1,000 unit) capsule flash glucose sensor (FreeStyle #1 ea 05/01/22 01/06/24 10/11/22 History Marisela 14 Day Sensor kit) sertraline 50 mg tablet 50 mg PO QAM 11/14/22 01/06/24 12/03/23 History Diabetic shoes with 3 pair of #1 ea 11/28/22 01/06/24 Unknown Rx inserts tamsulosin 0.4 mg capsule (Flomax) 0.8 mg (2 x 0.4 mg) PO BEDTIME #14 07/23/23 01/06/2411/04/24 Rx caps Vit B-12 1,000 mcg PO DAILY 10/24/23 01/06/24 11/05/23 History carvedilol 3.125 mg tablet (Coreg) 3.125 mg PO BID 10/24/23 01/06/24 12/04/23 History levothyroxine 125 mcg tablet 125 mcg PO DAILY 10/24/23 01/06/24 12/03/23 History ferrous sulfate 325 mg (65 mg 325 mg PO DAILY 11/06/23 01/06/24 Unknown History iron) tablet (Iron (ferrous sulfate)) aspirin 81 mg tablet,delayed 81 mg PO DAILY #90 tabs 11/07/23 01/06/24 12/03/23 Rx release clopidogrel 75 mg tablet 75 mg PO DAILY #90 tabs 11/07/23 01/06/24 12/03/23 Rx hydrocodone 5 mg-acetaminophen 325 1 tab PO Q6H PRN pain #14 tabs 12/02/23 01/06/24 Unknown Rx mg tablet atorvastatin 40 mg tablet 20 mg (1/2 x 40 mg) PO BEDTIME #30 12/13/23 01/06/24 Unknown Rx tabs insulin glargine 100 unit/mL (3 10 unit (0.1 mL) SUBCUT QPM #15 mL 12/13/23 01/06/24 12/03/23 Rx mL) subcutaneous pen (Lantus Solostar U-100 Insulin) insulin lispro 100 unit/mL See Protocol SUBCUT TID #15 mL 12/13/23 01/06/24 Unknown Rx subcutaneous pen (Humalog KwikPen (U-100) Insulin) bumetanide 1 mg tablet 1 mg PO 2XD 01/06/24 01/06/24 Unknown History Allergies Allergy/AdvReac Type Severity Reaction Status Date / Time No Known Allergies Allergy Verified 12/26/23 14:21 Current Medications Generic Name Dose Route Start Last Admin Trade Name Freq PRN Reason Stop Dose Admin Hydrocodone Bitart/Acetaminophen 1 tab 01/06/24 00:19 01/09/24 20:22 Hydrocodone-Acetaminophen 5-325 Mg Tablet PO 1 tab Q6H PRN Administration pain Aspirin 81 mg 01/06/24 09:00 01/10/24 08:52 Aspirin 81 Mg Ec Tablet PO 81 mg DAILY JYOTI Administration Atorvastatin Calcium 20 mg 01/06/24 21:00 01/09/24 20:11 Atorvastatin 40 Mg Tablet PO 20 mg BEDTIME JYOTI Administration Bumetanide 2 mg 01/06/24 20:30 01/10/24 08:58 Bumetanide 0.25 Mg/Ml Sdv 10 Ml IVP 2 mg Q12H JYOTI Administration Carvedilol 3.125 mg 01/06/24 09:00 01/06/24 08:10 Carvedilol 3.125 Mg Tablet PO 3.125 mg BID JYOTI Administration Clopidogrel Bisulfate 75 mg 01/06/24 09:00 01/10/24 08:51 Clopidogrel 75 Mg Tablet PO 75 mg DAILY JYOTI Administration Duloxetine HCl 60 mg 01/06/24 21:00 01/09/24 20:11 Duloxetine 60 Mg Capsule PO 60 mg BEDTIME JYOTI Administration Heparin Sodium (Porcine) 5,000 unit 01/06/24 00:19 01/10/24 00:55 Heparin 5,000 Unit/Ml Inj 1 Ml SUBCUT 5,000 unit Q12H JYOTI Administration Albumin Human 25 g in 100 mls @ 60 mls/hr 01/06/24 20:00 01/10/24 10:47 Albumin IV Infused Q12H JYOTI Infusion Ampicillin Sodium 2,000 mg/ 50 mls @ 100 mls/hr 01/09/24 17:30 01/10/24 09:41 Sodium Chloride IV Infused Q4H [facility] Infusion Protocol Ceftriaxone Sodium 2,000 mg/ 50 mls @ 100 mls/hr 01/10/24 01:00 01/10/24 01:41 Sodium Chloride IV Infused Q12H [facility] Infusion Protocol Insulin Glargine 13 unit 01/06/24 21:00 01/09/24 21:18 Insulin Glargine 100 Units/1 Ml SUBCUT Not Given BEDTIME JYOTI Insulin Human Lispro 0 unit 01/06/24 08:00 01/10/24 07:39 Insulin Lispro 100 Unit/1 Ml SUBCUT Not Given WM&BEDTIME [facility] Protocol Insulin Human Lispro 10 unit 01/08/24 11:00 01/10/24 07:39 Insulin Lispro 100 Unit/1 Ml SUBCUT Not Given AC JYOTI Levothyroxine Sodium 125 mcg 01/06/24 09:00 01/10/24 08:51 Levothyroxine 125 Mcg Tablet PO 125 mcg DAILY JYOTI Administration Potassium Chloride 40 meq 01/09/24 18:00 01/10/24 08:53 Potassium Chloride Oral Liq 20 Meq/15 Ml Udc PO 40 meq BIDWM JYOTI Administration Sertraline HCl 50 mg 01/07/24 09:00 01/10/24 08:51 Sertraline 50 Mg Tablet PO 50 mg DAILY JYOTI Administration Tamsulosin HCl 0.8 mg 01/06/24 21:00 01/09/24 20:11 Tamsulosin 0.4 Mg Capsule PO 0.8 mg BEDTIME JYOTI Administration Vitamin D 1,000 unit 01/09/24 09:00 01/10/24 08:52 Cholecalciferol (Vitamin D3) 1,000 Unit Tablet PO 1,000 unit DAILY JYOTI Administration [facility] Anesthesia Medical History Contrast-induced nephropathy Abscess PVD (peripheral vascular disease) 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 on 07/21/2021 Benign prostatic hyperplasia CKD (chronic kidney disease) Peripheral arterial disease Limb ischemia Dyslipidemia Osteomyelitis of foot Diabetic wet gangrene of the foot Diabetes EZEQUIEL (acute kidney injury) Non-pressure chronic ulcer of other part of left foot with fat layer exposed Cardiomyopathy Bradycardia Aortic valve disease 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 mellitus MSSA (methicillin susceptible Staphylococcus aureus) infection Gangrene Acute hypokalemia Osteomyelitis of toe of left foot History of nonmelanoma skin cancer Atrial fibrillation Paroxysmal Chronic anticoagulation Xarelto Hypertensive urgency NSTEMI (non-ST elevated myocardial infarction) Congestive heart failure Anticoagulation adequate with anticoagulant therapy Xarelto Varicose vein of leg Obesity HTN (hypertension) Diabetes TIA (transient ischemic attack) Surgical History S/P aortic valve replacement with bioprosthetic valve S/P cholecystectomy S/P cataract extraction S/P AVR (aortic valve replacement) Bioprosthetic, bovine Family History Father Diabetes Hypertension Grandfather Diabetes PATERNAL Hypertension PATERNAL Social History Smoking and tobacco/nicotine status: former use of tobacco/nicotine Alcohol intake: former Substance/Drug Use: never Marital status: / service: No Current occupational status: retired Current occupation: retired from [employer] Anesthesia 01/10/24 04:01 01/10/24 04:01 Short CBC 01/10/24 Range/Units 04:01 WBC 9.16 (3.29-11.43) 10^3/uL Hgb 10.00 L (11.27-16.99) g/dL Hct 33.3 L (37-53) % MCV 91.0 (82-101) fl Plt Count 137 L (157-399) 10^3/cmm Neut % (Auto) 76.2 % Neut # (Auto) 6.98 (1.8-7.7) 10^3/uL BMP 01/09/24 01/09/24 01/10/24 03:57 17:24 04:01 Sodium 137 139 138 Potassium 3.1 L 3.5 4.0 Chloride 96 L 96 L 96 L Carbon Dioxide 29 31 H 29 BUN 31 H 32 H 32 H Creatinine 1.7 H 1.8 H 1.8 H Glucose 102 89 87 Calcium 8.5 8.9 8.6 Liver Function 01/10/24 Range/Units 04:01 Total Bilirubin 1.6 H (0.15-1.2) mg/dL AST 25 (0-40) U/L ALT 18 (0-41) U/L Alkaline Phosphatase 89 (40-130) U/L Albumin 3.8 (3.5-5.2) g/dL Coags 01/09/24 01/09/24 03:57 17:24 ESR 9 C-Reactive Protein 51.4 H Microbiology 01/09/24 17:30 Blood Culture - Preliminary Blood SPECIMEN COLLECTED 01/09/24 17:24 Blood Culture - Preliminary Blood SPECIMEN COLLECTED Cardiac Studies: 2 Echocardiogram 05/30/23 Echocardiogram Ultrasound 07/05/20 Transesophageal Echocardiogram 10/12/22 Sestamibi Stress Test (Cardiology) 01/03
--- NOTE | 2024-01-10 11:29 | PC.NURSE ---
Procedure over, patient tolerated well
--- NOTE | 2024-01-10 12:05 | MRR_ITS ---
PROCEDURE INFORMATION: Exam: MR Right Lower Extremity Other Than Joint Without Contrast; Foot Exam date and time: 01/10/2024 5:51 PM Age: 73 years old Clinical indication: Pain; Prior surgery; Surgery date: 1-6 months; Surgery type: Partial amputation right foot; Additional info: Assess for abscess, recent tma of foot for gangrene and osteomyelitis, now with TECHNIQUE: Imaging protocol: Magnetic resonance imaging of the right lower extremity without contrast. Exam focused on the foot. COMPARISON: CT angio abd aorta runof [id number] 10/04/2023 1:16 PM FINDINGS: The examination is somewhat limited due to the lack of intravenous contrast. There is generalized soft tissue swelling and subcutaneous edema with overlying skin thickening. There is a soft tissue defect along the dorsum of the foot at the operative site with a moderate amount of subjacent loculated fluid, abutting the metatarsal remnants. There is no soft tissue mass. No acute tendon or ligament injury is identified. The patient is status post transmetatarsal amputation. There is no MR evidence of acute fracture or dislocation. Alignment is anatomic. There is subtle bone marrow edema in the 2nd, 3rd and 4th metatarsal shafts at the operative site. This is evident only on the fluid sensitive sequences and is therefore likely reactive. No significant associated T1 hyperintensity is evident. Mild degenerative changes are noted. There is no acute erosive or destructive change. No lytic or blastic lesion is seen. There is no significant effusion. MR/MR foot RT wo con* [id number] IMPRESSION: 1. Limited noncontrast examination without MR evidence of acute osteomyelitis. 2. Additional findings, as above.
--- NOTE | 2024-01-10 12:08 | CT_ITS ---
WS: [id number] CT ABDOMEN PELVIS TECHNIQUE: Noncontrast CT of the abdomen and pelvis with coronal and sagittal reformatted images. CLINICAL INFORMATION: Recurrent enteroccus bacteremia COMPARISON: 10/04/2023 and 07/12/2023 DLP: 939.[address] scans at [facility] use at least one of these dose optimization techniques: automated e xposure control; mA and/or kV adjustment per patient size (includes targeted exams where dose is matc hed to clinical indication); or iterative reconstruction. FINDINGS: Small bilateral pleural effusions. Compressive atelectasis in the lung bases. Unremarkable noncontras t liver. Splenic artery calcifications. Tiny esophageal hiatal hernia. Diffuse body wall anasarca. Ch olecystectomy. Dense pancreatic calcifications compatible with chronic pancreatitis. Adrenal glands a re normal. No hydronephrosis in either kidney. Peoples catheter. Prostate enlargement measuring 4.6 x 5.3 cm. Evidence of chronic bladder outlet obstr uction. Recommend correlation PSA. Rectal constipation with distention. Normal caliber abdominal aort a. Aortic calcification. Small amount of fluid in the paracolic gutters. Chronic mesenteric edema. Mi ld spondylitic changes lumbar spine with osteophytic ridging. IMPRESSION: 1. Atrophic pancreas with pancreatic calcifications compatible with chronic pancreatitis similar to previous. 2. Prostate enlargement with evidence of bladder outlet obstruction. Recommend correlation PSA. Fol ey catheter. 3. Mild pancolonic constipation. 4. Diffuse body wall anasarca with mesenteric edema. Small amount of fluid in the paracolic gutters. 5. Cardiomegaly. 6. Small RIGHT greater than LEFT pleural effusions with compressive atelectasis in the lung bases.
--- NOTE | 2024-01-10 12:16 | PC.OT ---
OT tx attempted with patient in procedure; will attempt again at later time.
--- NOTE | 2024-01-10 13:20 | P.PN_ITS ---
Subjective 2 Subjective: Infectious disease progress note. ADGMAR performed today without any concern for vegetations per verbal report. Leukocytosis is improving. No new complaints in the interim. Medications: Reviewed: Yes Vitals/I&O/Wt Last Vital Signs Temp 98.0 F 01/10/24 12:30 Pulse 54 L 01/10/24 12:30 Resp 16 01/10/24 12:30 BP 134/64 01/10/24 12:30 Pulse Ox 94 01/10/24 12:30 O2 Del Method Room Air 01/10/24 12:30 O2 Flow Rate 2 01/09/24 20:00 01/09/24 01/10/24 01/10/24 22:59 06:59 14:59 Intake Total 701.875 / 1831.875 250 / 2081.875 150 / 150 Output Total 950 / 2100 800 / 2900 Balance -248.125 / -268.125 -550 / -818.125 150 / 150 Weight last 48 hrs Weight 98.475 kg Weight 98.475 kg Weight 98.475 kg Weight 100.108 kg Weight 100.108 kg Physical Exam 2 Narrative: General: No acute distress, AO x3 HEENT: PERRLA, pupils bilaterally equal and reactive, pallors not present Chest: Normal vesicular breath sounds, no added sounds, equal good air entry bilaterally CVS: S1-S2 regular, no murmurs, no tachycardia, no gallops, no rubs Abdomen: Soft, nontender, no organomegaly, bowel sounds present Neuro: No focal deficits, no facial deformity, AO x3, power 5/5 in all limbs Urinary Catheter Management: Peoples: Cath Placed During This Visit: yes Reason for Continuing Indwelling Catheter: Accurate Measurement of Urinary Output in Critically Ill Patients Urinary Catheter Date of Insertion: 01/06/24 Urinary Catheter Time of Insertion: 15:30 Data 01/10/24 04:01 01/10/24 04:01 Micro: Microbiology 01/09/24 17:30 Blood Culture - Preliminary Blood SPECIMEN COLLECTED 01/09/24 17:24 Blood Culture - Preliminary Blood SPECIMEN COLLECTED Spec #: [id number] Dariel: 01/05/24 Status: COMP Req #: [id number] Recd: 01/05/[address]: Sukhdev Mckeon DO Src: Blood SpDesc: Ordered: Bcult Procedure Result Verified Site Blood Culture Final 01/08/24-1705 4 OF 4 BOTTLES POSITIVE DIRECT GRAM STAIN: GRAM POSITIVE COCCI IN CHAINS IDENTIFICATION BY DIRECT PCR TESTING Organism 1 Enterococcus faecalis Growth 4 BOTTLES Gram Stain Charge Charge for Gram Stain CRITICAL RESULT YES/NO: YES CRITICAL CALLED BY: JIAN TO AND READ BACK BY: EBONY DATE: 01/06/24 TIME: 1100 E faecalis M.I.C. RX --------- ------ * Ampicillin <=2 S * Linezolid 2 S * Penicillin 8 S Vancomycin 2 S Gentamicin Synergy Screen >500 R Daptomycin <=0.5 S A&P Assessment and plan (1) Bacteremia due to Enterococcus: (2) S/P aortic valve replacement with bioprosthetic valve: (3) Infective endocarditis: Qualifiers: Infective endocarditis organism: bacterial Chronicity: subacute Qualified Code(s): I33.0 - Acute and subacute infective endocarditis Plan 73-year-old male with recent admission for gangrene of the right foot, status post transmetatarsal amputation. Hospital course in December complicated by Enterococcus faecalis (amp susceptible) bacteremia thought to be related to gangrene and infection of the foot, treated with 14 days of IV antibiotics. Blood cultures noted to be clear from December 08, 2023. Patient currently admitted with acute on chronic CHF exacerbation. Noted to have leukocytosis and high lactate which prompted infectious evaluation. Blood cultures on current admission again revealing amp susceptible Enterococcus faecalis. Currently ongoing source evaluation. This is not entirely clear at this time. DAGMAR taken today without any obvious vegetations. Will obtain MRI of the right foot today to evaluate for any underlying abscess in the surgical bed. While this may not alter the overall antibiotic duration or course, patient may need source control measures should there be any underlying collection. Grossly, site of transmetatarsal amputation on the right side appears to be healing well overall. There are some wounds on left plantar aspect which are chronic since July 2023, unchanged over previous exams. No gross signs of foot infection overall. X-ray of bilateral feet without any osseous abnormalities concerning for osteomyelitis. Check CT of the abdomen and pelvis to evaluate for any occult abdominal sources which could explain recurrence of bacteremia. UA unremarkable, not concerning for UTI. Denies any complaints of dysuria. Patient does not have any port or other indwelling IV lines. Patient has a prior history of bioprosthetic aortic valve replacement. No other cardiac hardware Continue ampicillin 2 g IV every 4 hours (dosed for current creatinine clearance of 60) plus ceftriaxone 2 g IV every 12 hours for recurrent bacteremia Repeat blood cultures taken on January 09, 2024 to a certain clearance. defer placement of PICC line until documented clearance of blood cx Will follow. Attestations 2 Medical Necessity Statement*: Per admitting Coding Level of Care Code Acute Code for Chg Fwd High MDM includes number and complexity of problems actively addressed during encounter, amount and/or complexity of data reviewed/ordered and described risk of complication, morbidity or mortality of management as documented Diagnoses Bacteremia due to Enterococcus R78.81; B95.2 S/P aortic valve replacement with bioprosthetic valve Z95.3 Subacute bacterial endocarditis I33.0 Infective endocarditis organism: bacterial Chronicity: subacute
--- NOTE | 2024-01-10 13:37 | PM.PN ---
Subjective Subjective: Patient has been seen during DAGMAR and subsequently after. He remained sleeping status post anesthesia. Vitals/I&O/Wt Last Vital Signs Temp 98.0 F 01/10/24 12:30 Pulse 54 L 01/10/24 12:30 Resp 16 01/10/24 12:30 BP 134/64 01/10/24 12:30 Pulse Ox 94 01/10/24 12:30 O2 Del Method Room Air 01/10/24 12:30 O2 Flow Rate 2 01/09/24 20:00 01/09/24 01/10/24 01/10/24 22:59 06:59 14:59 Intake Total 701.875 / 1831.875 250 / 2081.875 150 / 150 Output Total 950 / 2100 800 / 2900 Balance -248.125 / -268.125 -550 / -818.125 150 / 150 Weight last 48 hrs Weight 98.475 kg Weight 98.475 kg Weight 98.475 kg Weight 100.108 kg Weight 100.108 kg Physical Exam Narrative: Resting comfortably. Heart regular rate and rhythm normal S1-S2 , systolic murmur at the left lower sternal border approximately 2-3/6. Lungs clear to auscultation anteriorly Abdomen soft nontender nondistended positive bowel sounds Extremities: Diffuse anasarca up to the abdomen; the scrotal sac is now normal no further edema. Showing signs of improvement daily Urinary Catheter Management: Peoples: Cath Placed During This Visit: yes Reason for Continuing Indwelling Catheter: Accurate Measurement of Urinary Output in Critically Ill Patients Urinary Catheter Date of Insertion: 01/06/24 Urinary Catheter Time of Insertion: 15:30 Data 01/10/24 04:01 01/10/24 04:01 Micro: Microbiology 01/09/24 17:30 Blood Culture - Preliminary Blood SPECIMEN COLLECTED 01/09/24 17:24 Blood Culture - Preliminary Blood SPECIMEN COLLECTED A&P Assessment and plan (1) CHF exacerbation: Acute on chronic heart failure with preserved ejection fraction exacerbation Echocardiogram from May 2023 showed LVEF of 45 to 50% Hold beta-davi when in acute heart failure Continue Bumex 2 mg every 12 hours with albumin to be given 30 minutes prior. Strict I's and O's only -1 L yesterday. He remains edematous and would like to diurese further. May stop albumin at this time to decrease intake. Qualifiers: Heart failure type: systolic Qualified Code(s): I50.23 - Acute on chronic systolic (congestive) heart failure (2) Septicemia due to enterococcus: Currently on Zosyn 3/375 q8hr and Rocephin. Was on Unasyn following discharge and completed total of 14 days of antibiotics. Greatly appreciate ID assistance. Discussed with Dr. Claros. She recommends attempts to find source but suspects the source is coming from the right lower extremity.. I also spoke to Dr. Duggan. It is very likely that patient has a soft tissue infection however inquiry for abscess or any other infection that could respond to intervention will be evaluated for. CT abdomen pelvis. MRI of right lower extremity as per Dr. Claros. Overall plan for Dr. Claros would be 6 weeks of IV antibiotics. As mentioned previously. Patient lives alone and has shown he cannot care for himself at home. He will require skilled level jail placement for the total of 6 weeks of antibiotics and then it is recommended that he obtain assisted living. (3) Lactic acidosis: Secondary to bacteremia. Now resolved (4) Wounds, multiple: Bilateral foot wounds with history of right TMA on 12/09 -appreciate Dr. Duggan's assistance. Right foot wound -x-ray shows no changes for osteomyelitis and Dr. Duggna's opinion noted that this is stable and improving. Dr. Duggan following and changing RLE dressing daily. Greatly appreciate his expertise. As above discussed with Dr. Duggan today. (5) Diabetes: Type 2 diabetes mellitus on insulin, uncontrolled with hyperglycemia A1c 9.6 (12/04/2023) Patient was taking 10 units insulin at bedtime. With sliding scale insulin correction. Yesterday (01/06/2024) his basal dose was increased to 13 units at bedtime NOTE: Now on scheduled 10 units insulin before meals. Blood sugars greatly improved. As long as patient is asymptomatic with a blood sugar in the 70s and 80s I will continue this insulin regimen. 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 Diabetes mellitus complication status: with circulatory complication Diabetes mellitus complication detail: with other circulatory complications Qualified Code(s): E11.59 - Type 2 diabetes mellitus with other circulatory complications; Z79.4 - residential (current) use of insulin (6) Peripheral arterial disease: Continue DAPT with aspirin and Plavix Continue statin (7) Benign prostatic hyperplasia: Continue home Flomax Qualifiers: Lower urinary tract symptom presence: unspecified whether lower urinary tract symptoms present Qualified Code(s): N40.0 - Benign prostatic hyperplasia without lower urinary tract symptoms (8) Ventricular tachycardia, nonsustained: Had a 9 beat run of V. tach on 01/09/2024. Stat BMP was done showing a potassium of 3.5. This was replaced with a second dose of KCl supplementation. Magnesium was normal. No further runs of V. tach Continue KCl 40 mill equivalents p.o. twice daily while on current Bumex dosing. Attestations Medical Necessity Statement*: Patient requires a 2 midnight stay due to bacteremia, acute on chronic CHF he was quires telemetry monitoring with diuresis due to high risk of arrhythmia as shown yesterday with a run of V. tach. Also since he has failed a 2-week treatment of antibiotics must ensure appropriate antibiotic choice and dosing regimen prior to discharge. 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
--- NOTE | 2024-01-10 14:25 | P.PN_ITS ---
Subjective 2 Subjective: Patient seen bedside this afternoon. Nursing staff present. Patient had a DAGMAR this morning. Vitals/I&O/Wt Last Vital Signs Temp 98.0 F 01/10/24 12:30 Pulse 54 L 01/10/24 12:30 Resp 16 01/10/24 12:30 BP 134/64 01/10/24 12:30 Pulse Ox 94 01/10/24 12:30 O2 Del Method Room Air 01/10/24 12:30 O2 Flow Rate 2 01/09/24 20:00 01/09/24 01/10/24 01/10/24 22:59 06:59 14:59 Intake Total 701.875 / 1831.875 250 / 2081.875 150 / 150 Output Total 950 / 2100 800 / 2900 Balance -248.125 / -268.125 -550 / -818.125 150 / 150 Weight last 48 hrs Weight 217 lb 1.6 oz Weight 217 lb 1.6 oz Weight 217 lb 1.6 oz Weight 220 lb 11.2 oz Weight 220 lb 11.2 oz Physical Exam 2 Narrative: Patient is alert and oriented ?3 and in no acute distress. The following is a focused bilateral lower extremity exam. VASCULAR: Dorsalis pedis palpable bilaterally. Posterior tibial arteries palpable. Diminished pedal hair growth bilaterally. NEUROLOGICAL: Protective sensation diminished to light touch. DERMATOLOGICAL: Betadine paint at the right transmetatarsal potation site, some stable eschar at the right transmetatarsal amputation site without fluctuance or bogginess, no purulence and no periwound erythema, no crepitus with soft tissue palpation. No purulence and no erythema. Grade 2 wound left foot plantar central foot measures 0.6 cm x 0.6 cm x 0.2 cm with fibrogranular base. No periwound erythema, warmth or drainage. Wound at the amputation site left fifth ray measures 1.1 cm x 0.3 cm x 0.2 cm with epithelialized margin and granular base. MUSCULOSKELETAL: Status post right transmetatarsal amputation. Left open for staged debridement and secondary closure. Urinary Catheter Management: Peoples: Cath Placed During This Visit: yes Reason for Continuing Indwelling Catheter: Accurate Measurement of Urinary Output in Critically Ill Patients Urinary Catheter Date of Insertion: 01/06/24 Urinary Catheter Time of Insertion: 15:30 Data 01/10/24 04:01 01/10/24 04:01 Micro: Microbiology 01/09/24 17:30 Blood Culture - Preliminary Blood SPECIMEN COLLECTED 01/09/24 17:24 Blood Culture - Preliminary Blood SPECIMEN COLLECTED A&P Assessment and plan (1) Non-pressure chronic ulcer of other part of left foot with fat layer exposed: (2) Status post transmetatarsal amputation of right foot: (3) Peripheral arterial disease: (4) 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 mellitus: Plan Surendra Roland is a 73 year old male admitted to the hospital service for CHF exacerbation, lactic acidosis, bilateral foot wounds and was noted to have positive blood cultures with Enterococcus. Partial left fifth ray resection secondary to osteomyelitis was performed 07/16/2023 and continues to progress slowly. Right transmetatarsal amputation performed 12/06/2023 with delayed closure of amputation site 12/10/2023. Leukocytosis has resolved, 9.16 white blood cell count today Patient remains afebrile Erythrocyte sedimentation rate January 09, 2024 9 mm/h Stable interval of healing and overall clinically stable wound left and right foot. Okay for transfer/discharge from podiatry standpoint will follow-up outpatient. Dressing change silver alginate at the left foot, Betadine wet-to-dry at right transmetatarsal amputation Weightbearing status: Weightbearing as tolerated with Darco shoe to the left foot Right heel touch for transfers with posterior splint Attestations 2 Medical Necessity Statement*: Bilateral foot wounds Coding Level of Care Code Acute Code for Chg Fwd Diagnoses Non-pressure chronic ulcer of other part of left foot with fat layer exposed L97.522 Status post transmetatarsal amputation of right foot Z89.431 Peripheral arterial disease I73.9 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 mellitus E11.42
[2024-01-10 17:59] LABS: Glucose Point of Care 158 mg/dL (70-110)
--- NOTE | 2024-01-10 18:28 | P.PN_ITS ---
Subjective 2 Subjective: Patient had the DAGMAR today. He was found to have mild to moderate mitral regurgitation with mild tricuspid and aortic dilatation. No vegetations were noted on the valves. Medications: Medication Review Details: Current Medications Acetaminophen (Acetaminophen 325 Mg Tablet) 650 mg PO Q6H PRN PRN Reason: Mild/Mod Pain Or Temp >/= 101 Hydrocodone Bitart/Acetaminophen (Hydrocodone-Acetaminophen 5-325 Mg Tablet) 1 tab PO Q6H PRN PRN Reason: pain Last Admin: 01/09/24 20:22 Dose: 1 tab Aspirin (Aspirin 81 Mg Ec Tablet) 81 mg PO DAILY JYOTI Last Admin: 01/10/24 08:52 Dose: 81 mg Atorvastatin Calcium (Atorvastatin 40 Mg Tablet) 20 mg PO BEDTIME JYOTI Last Admin: 01/09/24 20:11 Dose: 20 mg Bumetanide (Bumetanide 0.25 Mg/Ml Sdv 10 Ml) 2 mg IVP Q12H JYOTI Last Admin: 01/10/24 08:58 Dose: 2 mg Carvedilol (Carvedilol 3.125 Mg Tablet) 3.125 mg PO BID JYOTI Last Admin: 01/06/24 08:10 Dose: 3.125 mg Clopidogrel Bisulfate (Clopidogrel 75 Mg Tablet) 75 mg PO DAILY JYOTI Last Admin: 01/10/24 08:51 Dose: 75 mg Duloxetine HCl (Duloxetine 60 Mg Capsule) 60 mg PO BEDTIME JYOTI Last Admin: 01/09/24 20:11 Dose: 60 mg Heparin Sodium (Porcine) (Heparin 5,000 Unit/Ml Inj 1 Ml) 5,000 unit SUBCUT Q12H JYOTI Last Admin: 01/10/24 13:34 Dose: 5,000 unit Dextrose (D5w) 500 mls @ 0 mls/hr IV ONCE PRN; Protocol PRN Reason: Adult Acute Hypoglycemia Prot Dextrose (D10w) 125 mls @ 750 mls/hr IV PRN PRN; Protocol PRN Reason: Adult Acute Hypoglycemia Nursing Protocol Dextrose (D10w) 250 mls @ 1,000 mls/hr IV PRN PRN; Protocol PRN Reason: Adult Acute Hypoglycemia Nursing Protocol Ampicillin Sodium 2,000 mg/ (Sodium Chloride) 50 mls @ 100 mls/hr IV Q4H JYOTI; Protocol Last Infusion: 01/10/24 14:51 Dose: Infused Ceftriaxone Sodium 2,000 mg/ (Sodium Chloride) 50 mls @ 100 mls/hr IV Q12H [facility]; Protocol Last Infusion: 01/10/24 14:51 Dose: Infused Insulin Glargine (Insulin Glargine 100 Units/1 Ml) 13 unit SUBCUT BEDTIME [facility] Last Admin: 01/09/24 21:18 Dose: Not Given Insulin Human Lispro (Insulin Lispro 100 Unit/1 Ml) 0 unit SUBCUT WM&BEDTIME JYOTI; Protocol Last Admin: 01/10/24 13:50 Dose: Not Given Insulin Human Lispro (Insulin Lispro 100 Unit/1 Ml) 10 unit SUBCUT AC [facility] Last Admin: 01/10/24 11:35 Dose: Not Given Lactobacillus Acidophilus (Lactobacillus 1 Tablet) 2 tab PO BID JYOTI Levothyroxine Sodium (Levothyroxine 125 Mcg Tablet) 125 mcg PO DAILY [facility] Last Admin: 01/10/24 08:51 Dose: 125 mcg Magnesium Hydroxide (Magnesium Hydroxide 30 Ml Udc) 30 ml PO BEDTIME [facility] Ondansetron HCl (Ondansetron 4 Mg Tablet) 4 mg PO Q8H PRN PRN Reason: NAUSEA Potassium Chloride (Potassium Chloride Oral Liq 20 Meq/15 Ml Udc) 40 meq PO BIDWM [facility] Last Admin: 01/10/24 08:53 Dose: 40 meq Sertraline HCl (Sertraline 50 Mg Tablet) 50 mg PO DAILY [facility] Last Admin: 01/10/24 08:51 Dose: 50 mg Tamsulosin HCl (Tamsulosin 0.4 Mg Capsule) 0.8 mg PO BEDTIME [facility] Last Admin: 01/09/24 20:11 Dose: 0.8 mg Vitamin D (Cholecalciferol (Vitamin D3) 1,000 Unit Tablet) 1,000 unit PO DAILY [facility] Last Admin: 01/10/24 08:52 Dose: 1,000 unit Vitals/I&O/Wt Last Vital Signs Temp 98.1 F 01/10/24 16:00 Pulse 80 01/10/24 16:00 Resp 16 01/10/24 16:00 BP 139/50 01/10/24 16:00 Pulse Ox 96 01/10/24 16:00 O2 Del Method Nasal Cannula 01/10/24 16:00 O2 Flow Rate 2 01/09/24 20:00 01/10/24 01/10/24 01/10/24 06:59 14:59 22:59 Intake Total 250 / 2081.875 250 / 250 240 / 490 Output Total 800 / 2900 Balance -550 / -818.125 250 / 250 240 / 490 Weight last 48 hrs Weight 217 lb 1.6 oz Weight 217 lb 1.6 oz Weight 217 lb 1.6 oz Weight 220 lb 11.2 oz Weight 220 lb 11.2 oz Physical Exam 2 Narrative: GENERAL: The patient is alert and oriented times three. Not in any acute distress. HEENT: Moderate pallor. No icterus or lymphadenopathy.Oral cavity: There are no mucous membrane lesions. NECK: Trachea appears to be central. No masses noted. No JVD or thyromegaly appreciated. RESPIRATORY: Chest is symmetrical. No intercostals muscle retraction or any accessory muscle activation. There is no chest wall tenderness. Breath sounds are heard bilaterally. No rales or rhonchi heard. No evidence of any consolidation. BREASTS: Deferred. HEART: The heart sounds are normal. No S3 or S4. Ejection stock murmur grade 3 or 6 in the aortic area. No diastolic murmurs. No pericardial rub ABDOMEN: No vessel pulsations or distention. No tenderness. No organomegaly appreciated. Bowel sounds are normally heard. : Deferred. RECTAL: Deferred. LYMPHATIC: No lymphadenopathy noted in the neck. EXTREMITIES: No edema or cyanosis. No clubbing. MUSCULOSKELETAL: No acute joint deformities or swelling SKIN: There are no significant rashes or ecchymosis NEUROPSYCHIATRIC: The patient is alert and oriented x3. Appears to be in a good mood. No tremors or rigidity noted. Urinary Catheter Management: Peoples: Cath Placed During This Visit: yes Reason for Continuing Indwelling Catheter: Accurate Measurement of Urinary Output in Critically Ill Patients Urinary Catheter Date of Insertion: 01/06/24 Urinary Catheter Time of Insertion: 15:30 Data 01/10/24 04:01 01/10/24 04:01 Other Labs: Laboratory Last Values WBC 9.16 10^3/uL (3.29-11.43) 01/10/24 04:01 RBC 3.66 10^6/uL (3.85-5.65) L 01/10/24 04:01 Hgb 10.00 g/dL (11.27-16.99) L 01/10/24 04:01 Hct 33.3 % (37-53) L 01/10/24 04:01 MCV 91.0 fl (82-101) 01/10/24 04:01 MCH 27.3 pg (27-33) 01/10/24 04:01 MCHC 30.0 g/dL (30-55) 01/10/24 04:01 RDW 17.2 % (12.1-15.1) H 01/10/24 04:01 Plt Count 137 10^3/cmm (157-399) L 01/10/24 04:01 MPV 10.5 fL (7.4-10.4) H 01/10/24 04:01 Neut % (Auto) 76.2 % 01/10/24 04:01 Lymph % (Auto) 9.2 % 01/10/24 04:01 Heard % (Auto) 9.7 % 01/10/24 04:01 Eos % (Auto) 3.7 % 01/10/24 04:01 Baso % (Auto) 0.8 % 01/10/24 04:01 Neut # (Auto) 6.98 10^3/uL (1.8-7.7) 01/10/24 04:01 Lymph # (Auto) 0.8 10^3/uL (0.8-4.8) 01/10/24 04:01 Heard # (Auto) 0.9 10^3/uL (0.2-0.9) 01/10/24 04:01 Eos # (Auto) 0.3 10^3/uL (0.0-0.8) 01/10/24 04:01 Baso # (Auto) 0.1 10^3/uL (0.0-0.1) 01/10/24 04:01 Nucleated RBC % (auto) 0 % 01/10/24 04:01 Nucleated RBCs # 0.0 /100WBC 01/10/24 04:01 ESR 9 mm/hr (0-10) 01/09/24 03:57 PT 17.50 SECONDS (12.1-14.9) H 01/05/24 18:56 INR 1.39 (0.8-1.2) H 01/05/24 18:56 Specimen Type Arterial 01/05/24 20:11 Sample Site Radial, right 01/05/24 20:11 ABG pH 7.46 (7.35-7.45) H 01/05/24 20:11 ABG pCO2 32.6 mmHg (35-45) L 01/05/24 20:11 ABG pO2 61.7 mmHg (80.0-100.0) L 01/05/24 20:11 ABG PO2/FiO2 Ratio 0 01/05/24 20:11 ABG HCO3 23.4 mmol/L (22-26) 01/05/24 20:11 ABG Base Excess 0.1 mmol/L (-2.0-2.0) 01/05/24 20:11 Sam Test Pos 01/05/24 20:11 Hematocrit 34.9 % (42-52) L 01/05/24 20:11 Hgb O2 Saturation 92.1 % (95-100) L 01/05/24 20:11 Carboxyhemoglobin 2.2 %THgb (0.4-20.1) 01/05/24 20:11 Methemoglobin 0.2 % (0.4-1.5) L 01/05/24 20:11 Total Hemoglobin 11.4 g/dL (14-18) L 01/05/24 20:11 O2 Delivery Device Nc 01/05/24 20:11 O2 Liters/Min 4.0 % 01/05/24 20:11 FiO2 36.0 % 01/05/24 20:11 Receiving Teller ID Ed 01/05/24 20:11 Sodium 138 mmol/L (136-145) 01/10/24 04:01 Potassium 4.0 mmol/L (3.5-5.1) 01/10/24 04:01 Chloride 96 mmol/L (98-107) L 01/10/24 04:01 Carbon Dioxide 29 mmol/L (22-29) 01/10/24 04:01 Anion Gap 17.0 (5-19) 01/10/24 04:01 BUN 32 mg/dL (8-23) H 01/10/24 04:01 Creatinine 1.8 mg/dL (0.7-1.2) H 01/10/24 04:01 GFR Calculation Not Reportable 01/10/24 04:01 Glucose 87 mg/dL (65-115) 01/10/24 04:01 POC Glucose 158 mg/dL (70-110) H 01/10/24 17:32 Calculated Osmolality 292 mOsm/kg (285-295) 01/10/24 04:01 Lactic Acid 6.8 mmol/L (0.5-2.2) H* 01/05/24 18:56 Lactic Acid (Sepsis) 3.3 mmol/L (0.5-2.2) H 01/05/24 22:25 Calcium 8.6 mg/dL (8.5-10.5) 01/10/24 04:01 Phosphorus 2.9 mg/dL (2.5-4.5) 01/06/24 02:05 Magnesium 2.2 mg/dL (1.7-2.3) 01/09/24 17:24 Total Bilirubin 1.6 mg/dL (0.15-1.2) H 01/10/24 04:01 AST 25 U/L (0-40) 01/10/24 04:01 ALT 18 U/L (0-41) 01/10/24 04:01 Alkaline Phosphatase 89 U/L (40-130) 01/10/24 04:01 C-Reactive Protein 51.4 mg/L (0.0-4.9) H 01/09/24 17:24 NT-Pro-B Natriuret Pep 06243 pg/mL (0-125) H 01/05/24 18:56 Total Protein 6.5 g/dL (6.6-8.7) L 01/10/24 04:01 Albumin 3.8 g/dL (3.5-5.2) 01/10/24 04:01 Globulin 2.7 g/dL (1.3-4.6) 01/10/24 04:01 Procalcitonin 0.78 ng/mL (0-0.5) H 01/06/24 00:00 Urine Color Yellow (Yellow) 01/05/24 19:30 Urine Appearance Clear (CLEAR) 01/05/24 19:30 Urine pH 5 (5-7) 01/05/24 19:30 Ur Specific [place] 1.010 (1.005-1.030) 01/05/24 19:30 Urine Protein Neg (Negative) 01/05/24 19:30 Urine Glucose (UA) 4+ (Normal) H 01/05/24 19:30 Urine Ketones Negative (Negative) 01/05/24 19:30 Urine Blood Neg (Negative) 01/05/24 19:30 Urine Nitrate Negative (Negative) 01/05/24 19:30 Urine Bilirubin Neg (Negative) 01/05/24 19:30 Urine Urobilinogen Neg mg/dL (Negative) 01/05/24 19:30 Ur Leukocyte Esterase Negative (Negative) 01/05/24 19:30 Adenovirus (PCR) Not detected (NOT DETECT) 01/05/24 21:38 C. pneumoniae DNA (PCR) Not detected (NOT DETECT) 01/05/24 21:38 Coronavirus 229E (PCR) Not detected (NOT DETECT) 01/05/24 21:38 Human Metapneumovir PCR Not detected (NOT DETECT) 01/05/24 21:38 Influenza A (H1) PCR Not detected (NOT DETECT) 01/05/24 21:38 Influ A (H1/09) PCR Not detected (NOT DETECT) 01/05/24 21:38 Influenza A (H3) PCR Not detected (NOT DETECT) 01/05/24 21:38 Influenza Type A (PCR) Not detected (NOT DETECT) 01/05/24 21:38 Influenza Type B (PCR) Not detected (NOT DETECT) 01/05/24 21:38 M. pneumoniae (PCR) Not detected (NOT DETECT) 01/05/24 21:38 Parainfluenza 1 (PCR) Not detected (NOT DETECT) 01/05/24 21:38 Parainfluenza 2 (PCR) Not detected (NOT DETECT) 01/05/24 21:38 Parainfluenza 3 (PCR) Not detected (NOT DETECT) 01/05/24 21:38 Parainfluenza 4 (PCR) Not detected (NOT DETECT) 01/05/24 21:38 RSV Type A (PCR) Not detected (NOT DETECT) 01/05/24 21:38 RSV Type B (PCR) Not detected (NOT DETECT) 01/05/24 21:38 Entero/Rhino (PCR) Detected (NOT DETECT) A 01/05/24 21:38 SARS-CoV-2 (PCR) Not detected (NOT DETECT) 01/05/24 21:38 MRSA (PCR) Detected (NOT DETECTED) A 01/06/24 01:40 Micro: Microbiology 01/09/24 17:24 Blood Culture - Preliminary Blood NEGATIVE TO DATE 01/09/24 17:30 Blood Culture - Preliminary Blood NEGATIVE TO DATE A&P Assessment and plan (1) Bacteremia due to Enterococcus: Patient apparently grew in the cocci in 2 out of 2 blood culture bottles, similar to the organism identified a month ago. Apparently had negative blood culture in between. In the absence of any recurrence of osteomyelitis, possibility of endocarditis is a strong consideration. Patient does not seems to have any peripheral signs of endocarditis DAGMAR did not reveal any vegetations. (2) History of aortic valve replacement with bioprosthetic valve: Patient had the AVR approximately 12 years ago. He had some features of prosthetic valve stenosis based on the echocardiogram. The aortic leaflets were found to be thickened based on the DAGMAR findings. (3) CHF exacerbation: Getting compensated. May continue on the current medications. Qualifiers: Heart failure type: systolic Qualified Code(s): I50.23 - Acute on chronic systolic (congestive) heart failure (4) PVD (peripheral vascular disease): Status post [employer] bilaterally. Currently has no specific symptoms. (5) Intermittent atrial fibrillation: Patient has a history of intermittent atrial fibrillation. Currently he is not on any oral anticoagulation. May need to look into this. Plan Mild end of the bacteremia, as per the hospitalist service. Attestations 2 Medical Necessity Statement*: Deferred to the primary Coding Level of Care Code 15274 Diagnoses Bacteremia due to Enterococcus R78.81; B95.2 History of aortic valve replacement with bioprosthetic valve Z95.3 Acute on chronic systolic congestive heart failure I50.23 Heart failure type: systolic PVD (peripheral vascular disease) I73.9 Intermittent atrial fibrillation I48.0
[2024-01-10] MEDS: lactobacillus 1 Tablet 2 TAB PO (18:36)
[2024-01-10] MEDS: HYDROcodone-acetaminophen 5-325 mg Tablet 1 TAB PO (18:37)
[2024-01-10] MEDS: insulin lispro 100 unit/1 mL SUBCUT ×2 (18:37→20:50)
[2024-01-10 20:48] LABS: Glucose Point of Care 385 mg/dL (70-110)
[2024-01-10] MEDS: insulin glargine 100 units/1 mL 13 UNIT SUBCUT (20:50)
[2024-01-10] MEDS: magnesium hydroxide 30 mL UDC PO (20:51)
[2024-01-10] MEDS: duloxetine 60 mg Capsule PO (20:52)
[2024-01-10] MEDS: atorvastatin 40 mg Tablet 20 MG PO (20:54)
[2024-01-11] VITALS (10 sets, daily range): BP systolic 119–153; BP diastolic 53–80; PULSE 58–74; RESP 17–20; TEMP 36.3–36.7; O2SAT 91–100
[2024-01-11] MEDS: cefTRIAXone 2,000 MG in sodium chloride 0.9% (plus) 50 ML 100 MG IV ×2 (01:03→13:40)
[2024-01-11] MEDS: ampicillin 2,000 MG in sodium chloride 0.9% (plus) 50 ML 100 MG IV ×6 (01:03→21:21)
[2024-01-11] MEDS: heparin 5,000 unit/mL INJ 1 mL 5000 UNIT SUBCUT ×2 (01:03→13:41)
[2024-01-11 06:46] LABS: Glucose Point of Care 64 mg/dL (70-110)
[2024-01-11 06:46] LABS: Glucose Point of Care 59 mg/dL (70-110)
--- NOTE | 2024-01-11 06:59 | P.PN_ITS ---
Subjective 2 Subjective: Patient feeling better. Vitals/I&O/Wt Last Vital Signs Temp 97.9 F 01/11/24 03:33 Pulse 61 01/11/24 05:10 Resp 18 01/11/24 03:33 BP 145/80 01/11/24 03:33 Pulse Ox 93 01/11/24 03:33 O2 Del Method Room Air 01/11/24 03:33 O2 Flow Rate 2 01/09/24 20:00 01/10/24 01/10/24 01/11/24 14:59 22:59 06:59 Intake Total 250 / 250 590 / 840 570 / 1410 Output Total 1100 / 1100 1150 / 2250 Balance 250 / 250 -510 / -260 -580 / -840 Weight last 48 hrs Weight 213 lb 11.2 oz Weight 217 lb 1.6 oz Weight 217 lb 1.6 oz Weight 217 lb 1.6 oz Physical Exam 2 Narrative: GENERAL: Patient is alert, awake and oriented x3. [] NECK: No jugular vein distension. [] HEENT: No cyanosis. No icterus. No pallor. [] HEART: Regular S1 and S2. Grade 3/6 systolic murmur LUNGS: Clear to auscultate bilaterally. [] CENTRAL NERVOUS SYSTEM: Grossly nonfocal. [] EXTREMITIES: Lower extremities with 1+ edema bilaterally. Urinary Catheter Management: Peoples: Cath Placed During This Visit: yes Reason for Continuing Indwelling Catheter: Accurate Measurement of Urinary Output in Critically Ill Patients Urinary Catheter Date of Insertion: 01/06/24 Urinary Catheter Time of Insertion: 15:30 Data 01/10/24 04:01 01/12/24 02:10 Micro: Microbiology 01/09/24 17:24 Blood Culture - Preliminary Blood NEGATIVE TO DATE 01/09/24 17:30 Blood Culture - Preliminary Blood NEGATIVE TO DATE A&P Assessment and plan (1) Bacteremia due to Enterococcus: (2) History of aortic valve replacement with bioprosthetic valve: (3) CHF exacerbation: Qualifiers: Heart failure type: systolic Qualified Code(s): I50.23 - Acute on chronic systolic (congestive) heart failure (4) PVD (peripheral vascular disease): (5) Intermittent atrial fibrillation: Plan No evidence of endocarditis on DAGMAR. Continue antibiotic therapy per ID recommendations Continue diuretic therapy. Close I&O's. Monitor renal function. Thank you for involving us with care of this patient. We will continue to follow. Please call with questions Attestations 2 Medical Necessity Statement*: Care expected to cross 2 midnights. Coding Level of Care Code Acute Code for Chg Fwd Diagnoses Bacteremia due to Enterococcus R78.81; B95.2 History of aortic valve replacement with bioprosthetic valve Z95.3 Acute on chronic systolic congestive heart failure I50.23 Heart failure type: systolic PVD (peripheral vascular disease) I73.9 Intermittent atrial fibrillation I48.0
[2024-01-11 07:39] LABS: Glucose Point of Care 94 mg/dL (70-110)
[2024-01-11] MEDS: potassium chloride oral liq 20 mEq/15 mL UDC 40 MEQ PO ×2 (08:03→17:38)
[2024-01-11] MEDS: bumetanide 0.25 mg/mL SDV 10 mL 2 MG IVP ×2 (08:03→20:34)
[2024-01-11] MEDS: lactobacillus 1 Tablet 2 TAB PO ×2 (08:03→17:38)
[2024-01-11] MEDS: cholecalciferol (vitamin D3) 1,000 unit Tablet 1000 UNIT PO (08:03)
[2024-01-11] MEDS: sertraline 50 mg Tablet PO (08:04)
[2024-01-11] MEDS: levothyroxine 125 mcg Tablet PO (08:04)
[2024-01-11] MEDS: aspirin 81 mg EC Tablet PO (08:04)
[2024-01-11] MEDS: clopidogrel 75 mg Tablet PO (08:04)
[2024-01-11] MEDS: albumin 12.5 gm/50 mL IV IV (10:23)
[2024-01-11] MEDS: lisinopril 2.5 mg Tablet PO (10:23)
[2024-01-11 10:58] LABS: Glucose Point of Care 129 mg/dL (70-110)
[2024-01-11 11:27] LABS: Blood Urea Nitrogen 31 mg/dL (8-23); Calcium 8.6 mg/dL (8.5-10.5); Carbon Dioxide 30 mmol/L (22-29); Chloride 97 mmol/L (98-107); Glucose 111 mg/dL (65-115); Osmolality Calculated 295 mOsm/kg (285-295); Sodium 139 mmol/L (136-145)
[2024-01-11 11:33] LABS: Anion Gap 16.6 (5-19); Creatinine Clr Calc Pharmacy 47.3076; Potassium 4.6 mmol/L (3.5-5.1)
--- NOTE | 2024-01-11 14:43 | P.PN_ITS ---
Subjective 2 Subjective: No complaints. Patient had another bowel movement today. Reports that he does his leg exercises but not every hour. I taught him how to do pedal pumps on the left. I asked him to add those to his regimen Vitals/I&O/Wt Last Vital Signs Temp 97.8 F 01/11/24 07:53 Pulse 59 L 01/11/24 11:32 Resp 17 01/11/24 11:32 BP 144/57 01/11/24 11:32 Pulse Ox 98 01/11/24 11:32 O2 Del Method Room Air 01/11/24 11:32 O2 Flow Rate 2 01/09/24 20:00 01/10/24 01/11/24 01/11/24 22:59 06:59 14:59 Intake Total 590 / 840 570 / 1410 560 / 560 Output Total 1100 / 1100 1150 / 2250 1000 / 1000 Balance -510 / -260 -580 / -840 -440 / -440 Weight last 48 hrs Weight 96.933 kg Weight 98.475 kg Weight 98.475 kg Weight 98.475 kg Physical Exam 2 Narrative: Resting comfortably. Heart regular rate and rhythm normal S1-S2 , systolic murmur at the left lower sternal border approximately 2-3/6. Lungs clear to auscultation anteriorly Abdomen soft nontender nondistended positive bowel sounds Extremities: Diffuse anasarca up to groin.; the scrotal sac is now normal no further edema. Showing signs of improvement daily Urinary Catheter Management: Peoples: Cath Placed During This Visit: yes Reason for Continuing Indwelling Catheter: Accurate Measurement of Urinary Output in Critically Ill Patients Urinary Catheter Date of Insertion: 01/06/24 Urinary Catheter Time of Insertion: 15:30 Data 01/10/24 04:01 01/11/24 11:05 Micro: Microbiology 01/09/24 17:24 Blood Culture - Preliminary Blood NEGATIVE TO DATE 01/09/24 17:30 Blood Culture - Preliminary Blood NEGATIVE TO DATE A&P Assessment and plan (1) Bacteremia due to Enterococcus: Appreciate Dr. Claros's assistance. Please see her note for recommendations Overall plan is for 6 weeks IV antibiotics to cover for IE (2) S/P aortic valve replacement with bioprosthetic valve: DAGMAR was negative for infectious endocarditis visually. (3) Infective endocarditis: Please see Dr. Claros's note Qualifiers: Infective endocarditis organism: bacterial Chronicity: subacute Qualified Code(s): I33.0 - Acute and subacute infective endocarditis (4) CHF exacerbation: Acute on chronic heart failure with preserved ejection fraction exacerbation Echocardiogram from May 2023 showed LVEF of 45 to 50% Patient is -10.8 L total since admission. His diuresis has slowed down. I have readded albumin at lower dose of 12.5. Patient remains edematous in the lower extremities He was instructed to be more active with his leg exercises Qualifiers: Heart failure type: systolic Qualified Code(s): I50.23 - Acute on chronic systolic (congestive) heart failure (5) Septicemia due to enterococcus: Overall plan per Dr. Claros is 6 weeks of IV antibiotics. (6) Lactic acidosis: Secondary to bacteremia. Now resolved (7) Wounds, multiple: Bilateral foot wounds with history of right TMA on 12/09 -appreciate Dr. Duggan's assistance. Right foot wound -x-ray shows no changes for osteomyelitis and Dr. Duggan's opinion noted that this is stable and improving. Dr. Duggan following and changing RLE dressing daily. Greatly appreciate his expertise. As above discussed with Dr. Duggan today. (8) Diabetes: Type 2 diabetes mellitus on insulin, uncontrolled with hyperglycemia A1c 9.6 (12/04/2023) Patient was taking 10 units insulin at bedtime. With sliding scale insulin correction. Yesterday (01/06/2024) his basal dose was increased to 13 units at bedtime NOTE: I noticed that the nurses have not been given the scheduled 10 units before meals. This has resulted in quite elevated blood sugar at nighttime. I will adjust the Premeal insulin and discussed with RNs. 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 tach on 01/09/2024. Electrolytes at that time were negative No further runs of V. tach Continue KCl 40 mill equivalents p.o. twice daily while on current Bumex dosing. (12) Intermittent atrial fibrillation: Discussed with Dr. Garcia yesterday. Patient is not on any anticoagulation. Patient takes supplemental iron will ask patient if patient has a history of GI bleed prior would likely hold long-term anticoagulation will visit this tomorrow. Plan As mentioned previously. Patient lives alone and has shown he cannot care for himself at home. He will require skilled level retirement placement for the total of 6 weeks of antibiotics and then it is recommended that he obtain a ssisted living. Attestations 2 Medical Necessity Statement*: Patient requires a 2 midnight stay due to bacteremia, acute on chronic CHF he was quires telemetry monitoring with diuresis due to high risk of arrhythmia as shown yesterday with a run of V. tach. Also since he has failed a 2-week treatment of antibiotics must ensure appropriate antibiotic choice and dosing regimen prior to discharge. 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
--- NOTE | 2024-01-11 14:44 | P.PN_ITS ---
Subjective 2 Subjective: Infectious disease progress note No new complaints. States that he feels well. Wishes to be discharged soon. MRI of the foot without discrete abscess. CT of the abdomen and pelvis without any obvious unaddressed focus. Medications: Reviewed: Yes Medication Review Details: Current Medications Acetaminophen (Acetaminophen 325 Mg Tablet) 650 mg PO Q6H PRN PRN Reason: Mild/Mod Pain Or Temp >/= 101 Hydrocodone Bitart/Acetaminophen (Hydrocodone-Acetaminophen 5-325 Mg Tablet) 1 tab PO Q6H PRN PRN Reason: pain Last Admin: 01/09/24 20:22 Dose: 1 tab Aspirin (Aspirin 81 Mg Ec Tablet) 81 mg PO DAILY JYOTI Last Admin: 01/10/24 08:52 Dose: 81 mg Atorvastatin Calcium (Atorvastatin 40 Mg Tablet) 20 mg PO BEDTIME JYOTI Last Admin: 01/09/24 20:11 Dose: 20 mg Bumetanide (Bumetanide 0.25 Mg/Ml Sdv 10 Ml) 2 mg IVP Q12H JYOTI Last Admin: 01/10/24 08:58 Dose: 2 mg Carvedilol (Carvedilol 3.125 Mg Tablet) 3.125 mg PO BID JYOTI Last Admin: 01/06/24 08:10 Dose: 3.125 mg Clopidogrel Bisulfate (Clopidogrel 75 Mg Tablet) 75 mg PO DAILY JYOTI Last Admin: 01/10/24 08:51 Dose: 75 mg Duloxetine HCl (Duloxetine 60 Mg Capsule) 60 mg PO BEDTIME JYOTI Last Admin: 01/09/24 20:11 Dose: 60 mg Heparin Sodium (Porcine) (Heparin 5,000 Unit/Ml Inj 1 Ml) 5,000 unit SUBCUT Q12H JYOTI Last Admin: 01/10/24 13:34 Dose: 5,000 unit Dextrose (D5w) 500 mls @ 0 mls/hr IV ONCE PRN; Protocol PRN Reason: Adult Acute Hypoglycemia Prot Dextrose (D10w) 125 mls @ 750 mls/hr IV PRN PRN; Protocol PRN Reason: Adult Acute Hypoglycemia Nursing Protocol Dextrose (D10w) 250 mls @ 1,000 mls/hr IV PRN PRN; Protocol PRN Reason: Adult Acute Hypoglycemia Nursing Protocol Ampicillin Sodium 2,000 mg/ (Sodium Chloride) 50 mls @ 100 mls/hr IV Q4H JYOTI; Protocol Last Infusion: 01/10/24 14:51 Dose: Infused Ceftriaxone Sodium 2,000 mg/ (Sodium Chloride) 50 mls @ 100 mls/hr IV Q12H [facility]; Protocol Last Infusion: 01/10/24 14:51 Dose: Infused Insulin Glargine (Insulin Glargine 100 Units/1 Ml) 13 unit SUBCUT BEDTIME [facility] Last Admin: 01/09/24 21:18 Dose: Not Given Insulin Human Lispro (Insulin Lispro 100 Unit/1 Ml) 0 unit SUBCUT WM&BEDTIME JYOTI; Protocol Last Admin: 01/10/24 13:50 Dose: Not Given Insulin Human Lispro (Insulin Lispro 100 Unit/1 Ml) 10 unit SUBCUT AC [facility] Last Admin: 01/10/24 11:35 Dose: Not Given Lactobacillus Acidophilus (Lactobacillus 1 Tablet) 2 tab PO BID JYOTI Levothyroxine Sodium (Levothyroxine 125 Mcg Tablet) 125 mcg PO DAILY [facility] Last Admin: 01/10/24 08:51 Dose: 125 mcg Magnesium Hydroxide (Magnesium Hydroxide 30 Ml Udc) 30 ml PO BEDTIME JYOTI Ondansetron HCl (Ondansetron 4 Mg Tablet) 4 mg PO Q8H PRN PRN Reason: NAUSEA Potassium Chloride (Potassium Chloride Oral Liq 20 Meq/15 Ml Udc) 40 meq PO BIDWM [facility] Last Admin: 01/10/24 08:53 Dose: 40 meq Sertraline HCl (Sertraline 50 Mg Tablet) 50 mg PO DAILY [facility] Last Admin: 01/10/24 08:51 Dose: 50 mg Tamsulosin HCl (Tamsulosin 0.4 Mg Capsule) 0.8 mg PO BEDTIME [facility] Last Admin: 01/09/24 20:11 Dose: 0.8 mg Vitamin D (Cholecalciferol (Vitamin D3) 1,000 Unit Tablet) 1,000 unit PO DAILY [facility] Last Admin: 01/10/24 08:52 Dose: 1,000 unit Vitals/I&O/Wt Last Vital Signs Temp 97.8 F 01/11/24 07:53 Pulse 59 L 01/11/24 11:32 Resp 17 01/11/24 11:32 BP 144/57 01/11/24 11:32 Pulse Ox 98 01/11/24 11:32 O2 Del Method Room Air 01/11/24 11:32 O2 Flow Rate 2 01/09/24 20:00 01/10/24 01/11/24 01/11/24 22:59 06:59 14:59 Intake Total 590 / 840 570 / 1410 560 / 560 Output Total 1100 / 1100 1150 / 2250 1000 / 1000 Balance -510 / -260 -580 / -840 -440 / -440 Weight last 48 hrs Weight 96.933 kg Weight 98.475 kg Weight 98.475 kg Weight 98.475 kg Physical Exam 2 Narrative: General: No acute distress, AO x3 HEENT: PERRLA, pupils bilaterally equal and reactive, pallors not present Chest: Normal vesicular breath sounds, no added sounds, equal good air entry bilaterally CVS: S1-S2 regular, no murmurs, no tachycardia, no gallops, no rubs Abdomen: Soft, nontender, no organomegaly, bowel sounds present Neuro: No focal deficits, no facial deformity, AO x3, power 5/5 in all limbs Urinary Catheter Management: Peoples: Cath Placed During This Visit: yes Reason for Continuing Indwelling Catheter: Accurate Measurement of Urinary Output in Critically Ill Patients Urinary Catheter Date of Insertion: 01/06/24 Urinary Catheter Time of Insertion: 15:30 Data 01/10/24 04:01 01/11/24 11:05 Micro: Microbiology 01/09/24 17:24 Blood Culture - Preliminary Blood NEGATIVE TO DATE 01/09/24 17:30 Blood Culture - Preliminary Blood NEGATIVE TO DATE Spec #: [id number] Dariel: 01/05/24-2028 Status: COMP Req #: [id number] Recd: 01/05/24-[address]: Sukhdev Mckeon DO Src: Blood SpDesc: Ordered: Bcult Procedure Result Verified Site Blood Culture Final 01/08/24-1705 4 OF 4 BOTTLES POSITIVE DIRECT GRAM STAIN: GRAM POSITIVE COCCI IN CHAINS IDENTIFICATION BY DIRECT PCR TESTING Organism 1 Enterococcus faecalis Growth 4 BOTTLES Gram Stain Charge Charge for Gram Stain CRITICAL RESULT YES/NO: YES CRITICAL CALLED BY: JIAN TO AND READ BACK BY: EBONY DATE: 01/06/24 TIME: 1100 E faecalis M.I.C. RX --------- ------ * Ampicillin <=2 S * Linezolid 2 S * Penicillin 8 S Vancomycin 2 S Gentamicin Synergy Screen >500 R Daptomycin <=0.5 S A&P Assessment and plan (1) Bacteremia due to Enterococcus: (2) S/P aortic valve replacement with bioprosthetic valve: (3) Infective endocarditis: Qualifiers: Chronicity: subacute Infective endocarditis organism: bacterial Qualified Code(s): I33.0 - Acute and subacute infective endocarditis Plan 73-year-old male with recent admission for gangrene of the right foot, status post transmetatarsal amputation. Hospital course in December complicated by Enterococcus faecalis (amp susceptible) bacteremia thought to be related to gangrene and infection of the foot, treated with 14 days of IV antibiotics. Blood cultures noted to be clear from December 08, 2023. Patient currently admitted with acute on chronic CHF exacerbation. Noted to have leukocytosis and high lactate which prompted infectious evaluation. Blood cultures on current admission again revealing amp susceptible Enterococcus faecalis. Source is not entirely clear in spite of evaluation. DAGMAR without any obvious vegetations. Noncontrast MRI of the right foot without any signs of osteomyelitis. There is noted to be subtle bone marrow edema in the second third and fourth metatarsal shafts at the operative site. This may be related to postoperative reactive changes. Appreciate podiatry assessment. CT of the abdomen and pelvis without any obstructive hydronephrosis. Prostate enlargement with evidence of bladder outlet obstruction. UA overall unremarkable. UA unremarkable, not concerning for UTI. Patient does not have any port or other indwelling IV lines. Patient has a prior history of bioprosthetic aortic valve replacement. No other cardiac hardware Plan: Patient meets 1 major and 1 minor modified [place] criteria for possible infective endocarditis. (1 major criteria with typical microorganisms consistent with IE from 2 separate blood cultures), [address] by [address] of predisposing heart condition, additional criteria may be considered with serological evidence of active infection with leukocytosis and elevated CRP. Given possible IE, recommend to continue ampicillin 2 g IV every 4 hours (dosed for current creatinine clearance of 60) plus ceftriaxone 2 g IV every 12 hours for recurrent bacteremia Repeat blood cultures taken on January 09, 2024 thus far remain negative to date Okay to place PICC line on January 12, 2024 as blood cultures remain negative for over 48 hours at this point. While on the above antibiotics, please obtain weekly CBC, LFT, creatinine and fax results to infectious disease office for review. Follow-up in ID clinic in one month. May be transitioned to outpatient continuos infusion pump for ampicillin administration (12g/ day via continous infusion). Attestations 2 Medical Necessity Statement*: per admitting Coding Level of Care Code Acute Code for g Fwd Diagnoses Bacteremia due to Enterococcus R78.81; B95.2 S/P aortic valve replacement with bioprosthetic valve Z95.3 Subacute bacterial endocarditis I33.0 Chronicity: subacute Infective endocarditis organism: bacterial
[2024-01-11 16:47] LABS: Glucose Point of Care 277 mg/dL (70-110)
[2024-01-11] MEDS: insulin lispro 100 unit/1 mL SUBCUT ×3 (17:37→20:47)
[2024-01-11] MEDS: carvedilol 3.125 mg Tablet PO (17:38)
[2024-01-11 20:34] LABS: Glucose Point of Care 250 mg/dL (70-110)
[2024-01-11] MEDS: albumin 12.5 G/50 ML VIAL IV (20:34)
[2024-01-11] MEDS: magnesium hydroxide 30 mL UDC PO (20:34)
[2024-01-11] MEDS: atorvastatin 40 mg Tablet 20 MG PO (20:36)
[2024-01-11] MEDS: duloxetine 60 mg Capsule PO (20:37)
[2024-01-11] MEDS: HYDROcodone-acetaminophen 5-325 mg Tablet 1 TAB PO (20:43)
[2024-01-11] MEDS: insulin glargine 100 units/1 mL 12 UNIT SUBCUT (20:47)
[2024-01-11] MEDS: tamsulosin 0.4 mg Capsule 0.800000000000000044 MG PO (21:21)
[2024-01-12] VITALS (7 sets, daily range): BP systolic 117–161; BP diastolic 48–62; PULSE 51–62; RESP 16–19; TEMP 36.1–37.6; O2SAT 92–100; BMI 30.5
[2024-01-12] MEDS: heparin 5,000 unit/mL INJ 1 mL 5000 UNIT SUBCUT ×3 (00:13→23:18)
[2024-01-12] MEDS: cefTRIAXone 2,000 MG in sodium chloride 0.9% (plus) 50 ML 100 MG IV ×2 (00:13→12:27)
[2024-01-12] MEDS: ampicillin 2,000 MG in sodium chloride 0.9% (plus) 50 ML 100 MG IV ×6 (01:43→21:57)
[2024-01-12 03:17] LABS: Anion Gap 13.6 (5-19); Blood Urea Nitrogen 30 mg/dL (8-23); Calcium 8.7 mg/dL (8.5-10.5); Carbon Dioxide 32 mmol/L (22-29); Chloride 98 mmol/L (98-107); Creatinine Clr Calc Pharmacy 44.5248; Glucose 62 mg/dL (65-115); Osmolality Calculated 292 mOsm/kg (285-295); Potassium 4.6 mmol/L (3.5-5.1); Sodium 139 mmol/L (136-145)
[2024-01-12] MEDS: HYDROcodone-acetaminophen 5-325 mg Tablet 1 TAB PO ×2 (05:25→21:47)
[2024-01-12 06:24] LABS: Glucose Point of Care 60 mg/dL (70-110)
[2024-01-12 08:38] LABS: Glucose Point of Care 82 mg/dL (70-110)
[2024-01-12] MEDS: albumin 12.5 G/50 ML VIAL IV (09:18)
[2024-01-12] MEDS: bumetanide 0.25 mg/mL SDV 10 mL 2 MG IVP (09:19)
[2024-01-12] MEDS: potassium chloride oral liq 20 mEq/15 mL UDC 40 MEQ PO ×2 (09:19→18:35)
[2024-01-12] MEDS: sertraline 50 mg Tablet PO (09:20)
[2024-01-12] MEDS: lactobacillus 1 Tablet 2 TAB PO ×2 (09:20→18:34)
[2024-01-12] MEDS: carvedilol 3.125 mg Tablet PO ×2 (09:20→18:34)
[2024-01-12] MEDS: aspirin 81 mg EC Tablet PO (09:20)
[2024-01-12] MEDS: clopidogrel 75 mg Tablet PO (09:20)
[2024-01-12] MEDS: levothyroxine 125 mcg Tablet PO (09:20)
[2024-01-12] MEDS: cholecalciferol (vitamin D3) 1,000 unit Tablet 1000 UNIT PO (09:20)
[2024-01-12] MEDS: lisinopril 2.5 mg Tablet PO (09:20)
--- NOTE | 2024-01-12 11:04 | P.PN_ITS ---
Subjective 2 Subjective: Patient feeling better. Breathing is improving. Vitals/I&O/Wt Last Vital Signs Temp 97.6 F 01/12/24 08:11 Pulse 51 L 01/12/24 08:11 Resp 18 01/12/24 08:11 BP 142/48 01/12/24 08:11 Pulse Ox 93 01/12/24 08:11 O2 Del Method Room Air 01/12/24 08:11 O2 Flow Rate 2 01/09/24 20:00 01/11/24 01/12/24 01/12/24 22:59 06:59 14:59 Intake Total 540 / 1100 600 / 1700 720 / 720 Output Total 1700 / 2700 Balance 540 / 100 -1100 / -1000 720 / 720 Weight last 48 hrs Weight 213 lb Weight 213 lb Weight 213 lb 11.2 oz Physical Exam 2 Narrative: GENERAL: Patient is alert, awake and oriented x3. [] NECK: No jugular vein distension. [] HEENT: No cyanosis. No icterus. No pallor. [] HEART: Regular S1 and S2. Grade 3/6 systolic murmur LUNGS: Clear to auscultate bilaterally. [] CENTRAL NERVOUS SYSTEM: Grossly nonfocal. [] EXTREMITIES: Lower extremities with 1+ edema bilaterally. Urinary Catheter Management: Peoples: Cath Placed During This Visit: yes Reason for Continuing Indwelling Catheter: Other Urinary Catheter Date of Insertion: 01/06/24 Urinary Catheter Time of Insertion: 15:30 Data 01/13/24 02:15 01/13/24 02:15 A&P Assessment and plan (1) Bacteremia due to Enterococcus: (2) History of aortic valve replacement with bioprosthetic valve: (3) CHF exacerbation: Qualifiers: Heart failure type: systolic Qualified Code(s): I50.23 - Acute on chronic systolic (congestive) heart failure (4) PVD (peripheral vascular disease): (5) Intermittent atrial fibrillation: Plan No evidence of endocarditis on DAGMAR. Antibiotic therapy per ID recommendations. He is diuresing well. Continue IV diuresis for today. Monitor renal function. In 1 to 2 days may switch back to oral diuretics. Thank you for involving us with care of this patient. We will continue to follow. Please call with questions Attestations 2 Medical Necessity Statement*: Care expected to cross 2 midnights. Coding Level of Care Code Acute Code for [facility] Fwd Diagnoses Bacteremia due to Enterococcus R78.81; B95.2 History of aortic valve replacement with bioprosthetic valve Z95.3 Acute on chronic systolic congestive heart failure I50.23 Heart failure type: systolic PVD (peripheral vascular disease) I73.9 Intermittent atrial fibrillation I48.0
[2024-01-12 11:25] LABS: Glucose Point of Care 126 mg/dL (70-110)
[2024-01-12] MEDS: insulin lispro 100 unit/1 mL SUBCUT ×4 (12:32→21:47)
--- NOTE | 2024-01-12 13:20 | XRR_ITS ---
PROCEDURE INFORMATION: Exam: XR Chest Exam date and time: 01/12/2024 1:00 PM Age: 73 years old Clinical indication: Device placement; Picc; Prior surgery; Surgery date: 6+ months; Surgery type: Open heart; Additional info: Post picc insertion, chilo placing [facility] 250-1, should be ready at 1400. TECHNIQUE: Imaging protocol: Radiologic exam of the chest. Views: 1 view. COMPARISON: CR (CHEST, ) 01/05/2024 8:33 PM FINDINGS: Tubes, catheters and devices: Left subclavian PICC line with its tip terminating in the superior SVC. Lungs: Bilateral indistinct peribronchovascular opacities. Pleural spaces: Unremarkable. No pleural effusion. No pneumothorax. Heart/Mediastinum: Mild cardiomegaly, unchanged. Bones/joints: There are sternal wires consistent with previous sternotomy incision. XR/XR chest 1V portable [id number] IMPRESSION: Mild pulmonary edema, and atelectasis. Unchanged.
--- NOTE | 2024-01-12 13:29 | PM.PN ---
Subjective Subjective: Seen sitting in a chair which he says he likes to do. No complaints. Eating lasagna and green beans. Vitals/I&O/Wt Last Vital Signs Temp 97.0 F L 01/12/24 12:13 Pulse 62 01/12/24 12:13 Resp 18 01/12/24 12:13 BP 161/53 01/12/24 12:13 Pulse Ox 92 01/12/24 12:13 O2 Del Method Room Air 01/12/24 12:13 O2 Flow Rate 2 01/09/24 20:00 01/11/24 01/12/24 01/12/24 22:59 06:59 14:59 Intake Total 540 / 1100 600 / 1700 870 / 870 Output Total 1700 / 2700 Balance 540 / 100 -1100 / -1000 870 / 870 Weight last 48 hrs Weight 96.615 kg Weight 96.615 kg Weight 96.933 kg Physical Exam Narrative: Sitting in chair eating lunch Heart regular rate and rhythm normal S1-S2 , systolic murmur at the left lower sternal border approximately 2-3/6. Lungs clear to auscultation anteriorly Abdomen soft nontender nondistended positive bowel sounds Extremities: Diffuse anasarca up to groin.; the scrotal sac is now normal no further edema. Showing signs of improvement daily Urinary Catheter Management: Peoples: Cath Placed During This Visit: yes Reason for Continuing Indwelling Catheter: Other Urinary Catheter Date of Insertion: 01/06/24 Urinary Catheter Time of Insertion: 15:30 Data 01/10/24 04:01 01/12/24 02:10 A&P Assessment and plan (1) Bacteremia due to Enterococcus: Appreciate Dr. Claros's assistance. Please see her note for recommendations Overall plan is for 6 weeks IV antibiotics to cover for IE Ampicillin drip and Rocephin 2 g every [address] Claros has completed all necessary paperwork and documented lab studies. Please note [place] and the group home physician will need to cover in the interim she will be available for phone calls. (2) S/P aortic valve replacement with bioprosthetic valve: DAGMAR was negative for infectious endocarditis visually. However patient does meet [place] criteria and thus is being treated as IE (3) Infective endocarditis: Will receive treatment for infective endocarditis to be complete. Qualifiers: Infective endocarditis organism: bacterial Chronicity: subacute Qualified Code(s): I33.0 - Acute and subacute infective endocarditis (4) CHF exacerbation: Acute on chronic heart failure with diminished ejection fraction exacerbation Echocardiogram from May 2023 showed LVEF of 45 to 50% Patient is -10 L total since admission. His diuresis has slowed down. Patient remains edematous in the lower extremities He was instructed to be more active with his leg exercises DC IV Lasix twice daily and changed to oral 1 mg p.o. twice daily as he was taking at home DC IV albumin Qualifiers: Heart failure type: systolic Qualified Code(s): I50.23 - Acute on chronic systolic (congestive) heart failure (5) Septicemia due to enterococcus: Overall plan per Dr. Claros is 6 weeks of IV antibiotics. (6) Lactic acidosis: Secondary to bacteremia. Now resolved (7) Wounds, multiple: Bilateral foot wounds with history of right TMA on 12/09 -appreciate Dr. Duggan's assistance. Right foot wound -x-ray shows no changes for osteomyelitis and Dr. Duggan's opinion noted that this is stable and improving. Dr. Duggan following and changing RLE dressing daily while patient hospitalized Greatly appreciate his expertise. (8) Diabetes: Type 2 diabetes mellitus on insulin, uncontrolled with hyperglycemia A1c 9.6 (12/04/2023) Patient was taking 10 units insulin at bedtime. With sliding scale insulin correction. Yesterday (01/06/2024) his basal dose was increased to 13 units at bedtime NOTE: Patient requires a low-dose NovoLog or Humalog before meals. It does appear that he does not need this dosing before breakfast. 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 use Diabetes mellitus complication status: with circulatory complication Diabetes mellitus complication detail: with other circulatory complications Qualified Code(s): E11.59 - Type 2 diabetes mellitus with other circulatory complications; Z79.4 - care home (current) use of insulin (9) Peripheral arterial disease: Recent angioplasty of right leg continue DAPT with aspirin and Plavix Continue statin (10) Benign prostatic hyperplasia: Restart home Flomax Maintain Peoples while in hospital to assure appropriate output Qualifiers: Lower urinary tract symptom presence: unspecified whether lower urinary tract symptoms present Qualified Code(s): N40.0 - Benign prostatic hyperplasia without lower urinary tract symptoms (11) Ventricular tachycardia, nonsustained: Had a 9 beat run of V. tach on 01/09/2024. Electrolytes at that time were negative No further runs of V. tach for 3 days Now on oral medications DC telemetry (12) Intermittent atrial fibrillation: Discussed with Dr. Garcia yesterday. Patient is not on any anticoagulation for chronic intermittent atrial fibrillation. Assessment of history of GI bleed will need to be performed. At this time I do not want to add anticoagulation to his multiple medications Plan Patient is ready for discharge to correction facility for 6 weeks total of IV antibiotics and physical and Occupational Therapy. Patient has the antibiotics chosen he has done well on ampicillin and Rocephin without complications. His PICC line is in place on 01/12/2024 Patient was agreeable to look for assisted living at the end of that discharge. Attestations Medical Necessity Statement*: Patient requires further hospitalization until arrangements can be made through insurance to obtain SNF level of care Coding Level of Care Code Acute Code for [facility] Fwd Diagnoses Bacteremia due to Enterococcus R78.81; B95.2 S/P aortic valve replacement with bioprosthetic valve Z95.3 Subacute bacterial endocarditis I33.0 Infective endocarditis organism: bacterial Chronicity: subacute Acute on chronic systolic congestive heart failure I50.23 Heart failure type: systolic Septicemia due to enterococcus A41.81 Lactic acidosis E87.20 Wounds, multiple T07.XXXA Type 2 diabetes mellitus with other circulatory complication, with long-term current use of insulin E11.59; Z79.4 Diabetes mellitus type: type 2 Diabetes mellitus retirement insulin use: with retirement use Diabetes mellitus complication status: with circulatory complication Diabetes mellitus complication detail: with other circulatory complications Peripheral arterial disease I73.9 Benign prostatic hyperplasia, unspecified whether lower urinary tract symptoms present N40.0 Lower urinary tract symptom presence: unspecified whether lower urinary tract symptoms present Ventricular tachycardia, nonsustained I47.29 Intermittent atrial fibrillation I48.0
--- NOTE | 2024-01-12 14:54 | PC.NURSE ---
Single lumen PICC placed to right basilic vein. Referred to vascular access nurse for PICC placement due to need for snf IV antibiotics. Risks and benefits discussed and informed consent obtained from patient. Pt well known to vascular access nurse. Most recent PICC placed approximately one month ago. Right arm assessed with right basilic vein measuring 3.2 mm, straight, and apparent best choice for placement. Using sterile technique and MST, right basilic vein accessed x 1 stick. Mid-arm circumference measured 10 cm from right AC 28 cm. Trimmed cath 45 cm with 0 cm external length noted. Some difficulty noted getting catheter to pass to SVC. Right arm moved up, out, and down and catheter able to pass. If further PICC lines needed, this nurse suggests using left arm. CXR shows tip to be in what looks like distal SVC, awaiting official read from [facility]. Line secured with stat-lock. Insertion site covered with Biopatch and TSM. Report given to bedside nurse, Samanta.
[2024-01-12] MEDS: bumetanide 1 mg Tablet 2 MG PO (15:14)
[2024-01-12 17:00] LABS: Glucose Point of Care 188 mg/dL (70-110)
--- NOTE | 2024-01-12 19:42 | P.PN_ITS ---
Subjective 2 Subjective: Patient seen bedside this evening, doing well, tolerating regular diet. Denies any acute events. Vitals/I&O/Wt Last Vital Signs Temp 98 F 01/12/24 18:07 Pulse 58 L 01/12/24 18:07 Resp 19 H 01/12/24 18:07 BP 131/62 01/12/24 18:07 Pulse Ox 92 01/12/24 18:07 O2 Del Method Room Air 01/12/24 18:07 O2 Flow Rate 2 01/09/24 20:00 01/12/24 01/12/24 01/12/24 06:59 14:59 22:59 Intake Total 600 / 1700 870 / 870 100 / 970 Output Total 1700 / 2700 1750 / 1750 Balance -1100 / -1000 870 / 870 -1650 / -780 Weight last 48 hrs Weight 213 lb Weight 213 lb Weight 213 lb 11.2 oz Physical Exam 2 Narrative: Patient is alert and oriented ?3 and in no acute distress. The following is a focused bilateral lower extremity exam. VASCULAR: Dorsalis pedis palpable bilaterally. Posterior tibial arteries palpable. Diminished pedal hair growth bilaterally. NEUROLOGICAL: Protective sensation diminished to light touch. DERMATOLOGICAL: Betadine paint at the right transmetatarsal potation site, some stable eschar at the right transmetatarsal amputation site without fluctuance or bogginess, no purulence and no periwound erythema, no crepitus with soft tissue palpation. No purulence and no erythema. Grade 2 wound left foot plantar central foot measures 0.6 cm x 0.6 cm x 0.2 cm with fibrogranular base. No periwound erythema, warmth or drainage. Wound at the amputation site left fifth ray measures 1.1 cm x 0.3 cm x 0.2 cm with epithelialized margin and granular base. MUSCULOSKELETAL: Status post right transmetatarsal amputation. Left open for staged debridement and secondary closure. Urinary Catheter Management: Peoples: Cath Placed During This Visit: yes Reason for Continuing Indwelling Catheter: Accurate Measurement of Urinary Output in Critically Ill Patients Urinary Catheter Date of Insertion: 01/06/24 Urinary Catheter Time of Insertion: 15:30 Data 01/10/24 04:01 01/12/24 02:10 A&P Assessment and plan (1) Non-pressure chronic ulcer of other part of left foot with fat layer exposed: (2) Status post transmetatarsal amputation of right foot: (3) Peripheral arterial disease: (4) 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 mellitus: Kojo Surendra Roland is a 73 year old male admitted to the hospital service for CHF exacerbation, lactic acidosis, bilateral foot wounds and was noted to have positive blood cultures with Enterococcus. Partial left fifth ray resection secondary to osteomyelitis was performed 07/16/2023 and continues to progress slowly. Right transmetatarsal amputation performed 12/06/2023 with delayed closure of amputation site 12/10/2023. Leukocytosis has resolved, 9.16 white blood cell count today Patient remains afebrile Erythrocyte sedimentation rate January 09, 2024 9 mm/h MRI right foot negative for acute osteomyelitis, negative for abscess. Stable interval of healing and overall clinically stable wound left and right foot. Okay for transfer/discharge from podiatry standpoint will follow-up outpatient. Dressing change silver alginate at the left and right foot. Discontinued Betadine wet-to-dry to right. Weightbearing status: Weightbearing as tolerated with Darco shoe to the left foot Right heel touch for transfers with posterior splint Attestations 2 Medical Necessity Statement*: Bilateral foot wound Coding Level of Care Code Acute Code for [facility] Fwd Diagnoses Non-pressure chronic ulcer of other part of left foot with fat layer exposed L97.522 Status post transmetatarsal amputation of right foot Z89.431 Peripheral arterial disease I73.9 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 mellitus E11.42
[2024-01-12 20:46] LABS: Glucose Point of Care 210 mg/dL (70-110)
[2024-01-12] MEDS: insulin glargine 100 units/1 mL 12 UNIT SUBCUT (21:46)
[2024-01-12] MEDS: duloxetine 60 mg Capsule PO (21:47)
[2024-01-12] MEDS: tamsulosin 0.4 mg Capsule 0.800000000000000044 MG PO (21:47)
[2024-01-12] MEDS: magnesium hydroxide 30 mL UDC PO (21:47)
[2024-01-12] MEDS: atorvastatin 40 mg Tablet 20 MG PO (21:47)
[2024-01-13] MEDS: cefTRIAXone 2,000 MG in sodium chloride 0.9% (plus) 50 ML 100 MG IV ×2 (01:54→14:30)
[2024-01-13] MEDS: ampicillin 2,000 MG in sodium chloride 0.9% (plus) 50 ML 100 MG IV ×5 (01:54→23:31)
[2024-01-13 02:47] LABS: Glucose Point of Care 61 mg/dL (70-110)
[2024-01-13 03:31] LABS: Basophils # 0.1 10^3/uL (0.0-0.1); Basophils % 0.6 %; Eosinophils # 0.4 10^3/uL (0.0-0.8); Eosinophils % 3.8 %; Hematocrit 33.4 % (37-53); Lymphocytes # 0.7 10^3/uL (0.8-4.8); Lymphocytes % 6.1 %; Mean Corpuscular HGB Conc 29.3 g/dL (30-55); Mean Corpuscular Hemoglobin 27.1 pg (27-33); Mean Corpuscular Volume 92.3 fl (82-101); Mean Platelet Volume 11.7 fL (7.4-10.4); Monocytes # 0.9 10^3/uL (0.2-0.9); Monocytes % 7.4 %; Neutrophils # 9.55 10^3/uL (1.8-7.7); Neutrophils % 81.6 %; Nucleated Red Blood Cells % 0 %; Platelet Count 177 10^3/cmm (157-399); Red Blood Count 3.62 10^6/uL (3.85-5.65); Red Cell Distribution Width 16.7 % (12.1-15.1); White Blood Count 11.71 10^3/uL (3.29-11.43)
[2024-01-13 03:38] VITALS: BP 152/61; PULSE 66; RESP 18; TEMP 36.6; O2SAT 97
[2024-01-13 03:51] LABS: Alanine Aminotransferase 16 U/L (0-41); Albumin Level 3.6 g/dL (3.5-5.2); Alkaline Phosphatase 84 U/L (40-130); Anion Gap 14.4 (5-19); Aspartate Amino Transferase 25 U/L (0-40); Blood Urea Nitrogen 30 mg/dL (8-23); Calcium 8.7 mg/dL (8.5-10.5); Carbon Dioxide 30 mmol/L (22-29); Chloride 101 mmol/L (98-107); Globulin 2.8 g/dL (1.3-4.6); Glucose 43 mg/dL (65-115); Magnesium 2.5 mg/dL (1.7-2.3); Osmolality Calculated 295 mOsm/kg (285-295); Phosphorus 2.3 mg/dL (2.5-4.5); Potassium 4.4 mmol/L (3.5-5.1); Sodium 141 mmol/L (136-145); Total Bilirubin 0.8 mg/dL (0.15-1.2); Total Protein 6.4 g/dL (6.6-8.7)
[2024-01-13 03:56] LABS: Alanine Aminotransferase 16 U/L (0-41); Albumin Level 3.8 g/dL (3.5-5.2); Alkaline Phosphatase 82 U/L (40-130); Aspartate Amino Transferase 23 U/L (0-40); Globulin 2.5 g/dL (1.3-4.6); Total Bilirubin 0.8 mg/dL (0.15-1.2); Total Protein 6.3 g/dL (6.6-8.7)
[2024-01-13 05:14] LABS: Glucose Point of Care 106 mg/dL (70-110)
[2024-01-13] MEDS: HYDROcodone-acetaminophen 5-325 mg Tablet 1 TAB PO (06:21)
[2024-01-13 06:26] LABS: Glucose Point of Care 117 mg/dL (70-110)
[2024-01-13 08:00] VITALS: BP 134/50; PULSE 50; RESP 16; TEMP 36.4; O2SAT 92
[2024-01-13] MEDS: potassium chloride oral liq 20 mEq/15 mL UDC 40 MEQ PO ×2 (09:21→17:18)
[2024-01-13] MEDS: lactobacillus 1 Tablet 2 TAB PO ×2 (09:22→17:18)
[2024-01-13] MEDS: levothyroxine 125 mcg Tablet PO (09:22)
[2024-01-13] MEDS: sertraline 50 mg Tablet PO (09:22)
[2024-01-13] MEDS: aspirin 81 mg EC Tablet PO (09:22)
[2024-01-13] MEDS: cholecalciferol (vitamin D3) 1,000 unit Tablet 1000 UNIT PO (09:22)
[2024-01-13] MEDS: clopidogrel 75 mg Tablet PO (09:22)
[2024-01-13 09:43] LABS: NT Pro B Type Natriuretic Pept 20051 pg/mL (0-125)
[2024-01-13 09:50] LABS: SARS Covid-2 Antigen negative (Negative)
--- NOTE | 2024-01-13 10:01 | PC.SOCIAL ---
IMM Update pg 2 of IMM updated and reviewed w/ patient. Copy provided and copy dated, initialed and placed in chart.
[2024-01-13 10:46] LABS: Glucose Point of Care 208 mg/dL (70-110)
--- NOTE | 2024-01-13 11:48 | P.PN_ITS ---
Subjective 2 Subjective: Patient is feeling better. No chest pain Vitals/I&O/Wt Last Vital Signs Temp 97.5 F L 01/13/24 08:00 Pulse 50 L 01/13/24 08:00 Resp 16 01/13/24 08:00 BP 134/50 01/13/24 08:00 Pulse Ox 92 01/13/24 08:00 O2 Del Method Room Air 01/13/24 08:00 O2 Flow Rate 2 01/09/24 20:00 01/12/24 01/13/24 01/13/24 22:59 06:59 14:59 Intake Total 340 / 1210 510 / 1720 290 / 290 Output Total 1750 / 1750 1150 / 2900 Balance -1410 / -540 -640 / -1180 290 / 290 Weight last 48 hrs Weight 214 lb Weight 214 lb Weight 213 lb Weight 213 lb Physical Exam 2 Narrative: GENERAL: Patient is alert, awake and oriented x3. [] NECK: No jugular vein distension. [] HEENT: No cyanosis. No icterus. No pallor. [] HEART: Regular S1 and S2. Grade 3/6 systolic murmur LUNGS: Clear to auscultate bilaterally. [] CENTRAL NERVOUS SYSTEM: Grossly nonfocal. [] EXTREMITIES: Lower extremities with 1+ edema bilaterally. Urinary Catheter Management: Peoples: Cath Placed During This Visit: yes Reason for Continuing Indwelling Catheter: Other Urinary Catheter Date of Insertion: 01/06/24 Urinary Catheter Time of Insertion: 15:30 Data 01/14/24 04:12 01/14/24 04:12 A&P Assessment and plan (1) Bacteremia due to Enterococcus: (2) History of aortic valve replacement with bioprosthetic valve: (3) CHF exacerbation: Qualifiers: Heart failure type: systolic Qualified Code(s): I50.23 - Acute on chronic systolic (congestive) heart failure (4) PVD (peripheral vascular disease): (5) Intermittent atrial fibrillation: Plan Creatinine trending up, can hold diuresis for now and start oral diuretics in 1- 2 days Thank you for involving us with care of this patient. We will continue to follow. Please call with questions Attestations 2 Medical Necessity Statement*: Care expected to cross 2 midnights. Coding Level of Care Code Acute Code for [facility] Diagnoses Bacteremia due to Enterococcus R78.81; B95.2 History of aortic valve replacement with bioprosthetic valve Z95.3 Acute on chronic systolic congestive heart failure I50.23 Heart failure type: systolic PVD (peripheral vascular disease) I73.9 Intermittent atrial fibrillation I48.0
[2024-01-13 12:00] VITALS: BP 127/62; PULSE 69; RESP 17; TEMP 36.3; O2SAT 93
--- NOTE | 2024-01-13 12:28 | P.PN_ITS ---
Subjective 2 Subjective: Patient was seen this morning, denies any fevers, no chills, no cough, discussed his creatinine of 2.0 we will hold his diuretics for today, spoke to infectious disease, given his elevated creatinine we will adjust ampicillin dose Vitals/I&O/Wt Last Vital Signs Temp 97.4 F L 01/13/24 12:00 Pulse 69 01/13/24 12:00 Resp 17 01/13/24 12:00 BP 127/62 01/13/24 12:00 Pulse Ox 93 01/13/24 12:00 O2 Del Method Room Air 01/13/24 12:00 O2 Flow Rate 2 01/09/24 20:00 01/12/24 01/13/24 01/13/24 22:59 06:59 14:59 Intake Total 340 / 1210 510 / 1720 290 / 290 Output Total 1750 / 1750 1150 / 2900 Balance -1410 / -540 -640 / -1180 290 / 290 Weight last 48 hrs Weight 97.069 kg Weight 97.069 kg Weight 96.615 kg Weight 96.615 kg Physical Exam 2 Const: COMMON NORMALS: no acute distress ORIENTATION/CONSCIOUSNESS: Yes awake, Yes oriented to person and Yes oriented to place; not oriented to time Resp: COMMON NORMALS: normal respiratory effort, No retractions, No use of accessory muscles and clear to auscultation bilaterally AUSCULTATION: clear to auscultation bilaterally Cardio: COMMON NORMALS: regular rate, regular rhythm, S1 normal heart sound present and S2 normal heart sound present RATE: regular rate RHYTHM: r egular rhythm HEART SOUNDS: S1 normal heart sound present and S2 normal heart sound present GI: COMMON NORMALS: Normal to inspection, nondistended, normoactive bowel sounds present and non-tender Extremity: COMMON NORMALS: no pedal edema OTHER: Right lower extremity wrapped Neuro: SENSORIUM/ORIENTATION: Yes oriented to person, Yes oriented to place and No oriented to time Psych: COMMON NORMALS: mental status grossly normal Urinary Catheter Management: Peoples: Cath Placed During This Visit: yes Reason for Continuing Indwelling Catheter: Other Urinary Catheter Date of Insertion: 01/06/24 Urinary Catheter Time of Insertion: 15:30 Data 01/13/24 02:15 01/13/24 02:15 A&P Assessment and plan (1) Bacteremia due to Enterococcus: Overall plan is for 6 weeks IV antibiotics to cover for IE, treatment days for 01/08-02/19 Ampicillin dose adjusted to 2 g every 6 hours and Rocephin [address] Claros has completed all necessary paperwork and documented lab studies. Please note [place] and the senior living physician will need to cover in the interim she will be available for phone calls. (2) S/P aortic valve replacement with bioprosthetic valve: DAGMAR was negative for infectious endocarditis visually. However patient does meet [place] criteria and thus is being treated as IE (3) Infective endocarditis: Will receive treatment for infective endocarditis to be complete. Qualifiers: Infective endocarditis organism: bacterial Chronicity: subacute Qualified Code(s): I33.0 - Acute and subacute infective endocarditis (4) CHF exacerbation: Acute on chronic heart failure with diminished ejection fraction exacerbation Echocardiogram from May 2023 showed LVEF of 45 to 50% Patient is -10 L total since admission. His diuresis has slowed down. Edema improving, creatinine 2.0 He was instructed to be more active with his leg exercises Hold Lasix for today Qualifiers: Heart failure type: systolic Qualified Code(s): I50.23 - Acute on chronic systolic (congestive) heart failure (5) Septicemia due to enterococcus: Overall plan per Dr. Claros is 6 weeks of IV antibiotics. (6) Lactic acidosis: Secondary to bacteremia. Now resolved (7) Wounds, multiple: Bilateral foot wounds with history of right TMA on 12/09 -appreciate Dr. Duggan's assistance. Right foot wound -x-ray shows no changes for osteomyelitis and Dr. Duggan's opinion noted that this is stable and improving. Dr. Duggan following and changing RLE dressing daily while patient hospitalized Greatly appreciate his expertise. 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 tach on 01/09/2024. Electrolytes at that time were negative No further runs of V. tach for 3 days Now on oral medications DC telemetry (12) Intermittent atrial fibrillation: Discussed with Dr. Garcia yesterday. Patient is not on any anticoagulation for chronic intermittent atrial fibrillation. Assessment of history of GI bleed will need to be performed. At this time I do not want to add anticoagulation to his multiple medications Plan EZEQUIEL creatinine 2.0, monitor Patient was agreeable to look for assisted living at the end of that discharge. Plan for today continue Rocephin, adjust dose of ampicillin, creatinine up to 2.0, hold diuresis for now, monitor urine output, monitor fluid status, adjust insulin dosing, spoke to patient, spoke to nursing staff, spoke to infectious disease Attestations 2 Medical Necessity Statement*: Patient requires hospitalization for subacute bacterial endocarditis requiring IV antibiotics, now with EZEQUIEL Diagnoses Bacteremia due to Enterococcus R78.81; B95.2 S/P aortic valve replacement with bioprosthetic valve Z95.3 Subacute bacterial endocarditis I33.0 Infective endocarditis organism: bacterial Chronicity: subacute Acute on chronic systolic congestive heart failure I50.23 Heart failure type: systolic Septicemia due to enterococcus A41.81 Lactic acidosis E87.20 Wounds, multiple T07.XXXA Type 2 diabetes mellitus with other circulatory complication, with long-term current use of insulin E11.59; Z79.4 Diabetes mellitus type: type 2 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
[2024-01-13] MEDS: heparin 5,000 unit/mL INJ 1 mL 5000 UNIT SUBCUT ×2 (12:45→23:26)
[2024-01-13 15:44] VITALS: BP 129/70; PULSE 57; RESP 16; TEMP 36.4; O2SAT 96
[2024-01-13 16:44] LABS: Glucose Point of Care 228 mg/dL (70-110)
[2024-01-13] MEDS: insulin lispro 100 unit/1 mL SUBCUT (18:13)
[2024-01-13 19:57] VITALS: BP 138/70; PULSE 59; RESP 18; TEMP 36.3; O2SAT 93
--- NOTE | 2024-01-13 20:00 | PM.PN ---
Subjective Subjective: Patient seen this evening, resting comfortably in his chair, anticipating [place] transfer tomorrow. Patient denies any subjective nausea, vomiting, fever, chills, shortness of breath or chest pain. Vitals/I&O/Wt Last Vital Signs Temp 97.3 F L 01/13/24 19:57 Pulse 59 L 01/13/24 19:57 Resp 18 01/13/24 19:57 BP 138/70 01/13/24 19:57 Pulse Ox 93 01/13/24 19:57 O2 Del Method Room Air 01/13/24 15:44 O2 Flow Rate 2 01/09/24 20:00 01/13/24 01/13/24 01/13/24 06:59 14:59 22:59 Intake Total 510 / 1720 530 / 530 390 / 920 Output Total 1150 / 2900 650 / 650 Balance -640 / -1180 530 / 530 -260 / 270 Weight last 48 hrs Weight 214 lb Weight 214 lb Weight 213 lb Weight 213 lb Physical Exam Narrative: Patient is alert and oriented ?3 and in no acute distress. The following is a focused bilateral lower extremity exam. VASCULAR: Dorsalis pedis palpable bilaterally. Posterior tibial arteries palpable. Diminished pedal hair growth bilaterally. NEUROLOGICAL: Protective sensation diminished to light touch. DERMATOLOGICAL: Betadine paint at the right transmetatarsal potation site, some stable eschar at the right transmetatarsal amputation site without fluctuance or bogginess, no purulence and no periwound erythema, no crepitus with soft tissue palpation. No purulence and no erythema. Grade 2 wound left foot plantar central foot measures 0.6 cm x 0.6 cm x 0.2 cm with fibrogranular base. No periwound erythema, warmth or drainage. Wound at the amputation site left fifth ray measures 1.0 cm x 0.3 cm x 0.2 cm with epithelialized margin and granular base. MUSCULOSKELETAL: Status post right transmetatarsal amputation. Left open for staged debridement and secondary closure. Urinary Catheter Management: Peoples: Cath Placed During This Visit: yes Reason for Continuing Indwelling Catheter: Other Urinary Catheter Date of Insertion: 01/06/24 Urinary Catheter Time of Insertion: 15:30 Data 01/13/24 02:15 01/13/24 02:15 A&P Assessment and plan (1) Non-pressure chronic ulcer of other part of left foot with fat layer exposed: (2) Status post transmetatarsal amputation of right foot: (3) Peripheral arterial disease: (4) 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 mellitus: Plan Surendra Roland is a 73 year old male admitted to the hospital service for CHF exacerbation, lactic acidosis, bilateral foot wounds and was noted to have positive blood cultures with Enterococcus. Partial left fifth ray resection secondary to osteomyelitis was performed 07/16/2023 and continues to progress slowly. Right transmetatarsal amputation performed 12/06/2023 with delayed closure of amputation site 12/10/2023. Leukocytosis has resolved, 9.16 white blood cell count today Patient remains afebrile Erythrocyte sedimentation rate January 09, 2024 9 mm/h MRI right foot negative for acute osteomyelitis, negative for abscess. Stable interval of healing and overall clinically stable wound left and right foot. Okay for transfer/discharge from podiatry standpoint will follow-up weekly in podiatry clinic outpatient. Dressing change silver alginate at the left and right foot. Weightbearing status: Weightbearing as tolerated with Darco shoe to the left foot Right heel touch for transfers with posterior splint Attestations Medical Necessity Statement*: Bilateral diabetic foot ulcer Coding Level of Care Code Acute Code for [facility] Fwd Diagnoses Non-pressure chronic ulcer of other part of left foot with fat layer exposed L97.522 Status post transmetatarsal amputation of right foot Z89.431 Peripheral arterial disease I73.9 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 mellitus E11.42
[2024-01-13 20:50] LABS: Glucose Point of Care 233 mg/dL (70-110)
[2024-01-13] MEDS: duloxetine 60 mg Capsule PO (21:40)
[2024-01-13] MEDS: magnesium hydroxide 30 mL UDC PO (21:40)
[2024-01-13] MEDS: atorvastatin 40 mg Tablet 20 MG PO (21:40)
[2024-01-13] MEDS: insulin glargine 100 units/1 mL 5 UNIT SUBCUT (21:40)
[2024-01-13] MEDS: tamsulosin 0.4 mg Capsule 0.800000000000000044 MG PO (21:40)
[2024-01-14] VITALS: BP 144/62; PULSE 65; RESP 20; TEMP 37.2; O2SAT 95
[2024-01-14] MEDS: cefTRIAXone 2,000 MG in sodium chloride 0.9% (plus) 50 ML 100 MG IV ×2 (00:10→12:23)
[2024-01-14 04:18] VITALS: BP 118/47; PULSE 58; RESP 18; TEMP 36.8
[2024-01-14 05:39] LABS: Alanine Aminotransferase 19 U/L (0-41); Albumin Level 3.4 g/dL (3.5-5.2); Alkaline Phosphatase 80 U/L (40-130); Blood Urea Nitrogen 31 mg/dL (8-23); Calcium 8.4 mg/dL (8.5-10.5); Carbon Dioxide 27 mmol/L (22-29); Chloride 100 mmol/L (98-107); Creatinine Clr Calc Pharmacy 40.3893; Globulin 2.8 g/dL (1.3-4.6); Glucose 83 mg/dL (65-115); Magnesium 2.7 mg/dL (1.7-2.3); Osmolality Calculated 290 mOsm/kg (285-295); Phosphorus 2.9 mg/dL (2.5-4.5); Sodium 137 mmol/L (136-145); Total Bilirubin 0.6 mg/dL (0.15-1.2); Total Protein 6.2 g/dL (6.6-8.7)
[2024-01-14 05:40] LABS: Anion Gap 14.9 (5-19); Aspartate Amino Transferase 33 U/L (0-40); Potassium 4.9 mmol/L (3.5-5.1)
[2024-01-14] MEDS: ampicillin 2,000 MG in sodium chloride 0.9% (plus) 50 ML 100 MG IV ×4 (05:48→23:42)
[2024-01-14 06:28] LABS: Glucose Point of Care 76 mg/dL (70-110)
[2024-01-14 08:00] VITALS: BP 110/50; PULSE 59; RESP 17; O2SAT 93
--- NOTE | 2024-01-14 08:25 | USCV_ITS ---
Surendra Roland Age: 73 Gender: M : 1950 Exam Date: 01/14/2024 11:20 Ordering Phys: Omar Copeland MD Technologist: Exam Location: [facility] [place] Indication: lt leg swelling PROCEDURES: Venous duplex imaging was performed in only the left lower extremity. The following venous structures were evaluated: common femoral vein, profunda vein, proximal portion of the greater saphenous vein, superficial femoral vein, and the popliteal vein. In addition, the posterior tibial and peroneal trunk were evaluated. FINDINGS: Normal 2-D Doppler and augmentation and compressibility throughout the lower extremity venous structures. Additional imaging through the proximal calf veins also reveals no thrombus. Limited evaluation of the greater saphenous vein is patent with no thrombus. CONCLUSIONS No DVT left lower extremity. Dr. Vania Gupta DO (Electronically Signed) Final Date: 14 January 2024 12:10 S
[2024-01-14 08:36] LABS: Basophils # 0.1 10^3/uL (0.0-0.1); Basophils % 0.7 %; Eosinophils # 0.4 10^3/uL (0.0-0.8); Hematocrit 32.2 % (37-53); Lymphocytes # 0.7 10^3/uL (0.8-4.8); Lymphocytes % 6.9 %; Mean Corpuscular HGB Conc 29.5 g/dL (30-55); Mean Corpuscular Hemoglobin 27.7 pg (27-33); Mean Corpuscular Volume 93.9 fl (82-101); Mean Platelet Volume 11.4 fL (7.4-10.4); Monocytes # 0.7 10^3/uL (0.2-0.9); Neutrophils # 8.14 10^3/uL (1.8-7.7); Neutrophils % 81.1 %; Nucleated Red Blood Cells % 0 %; Platelet Count 163 10^3/cmm (157-399); Red Blood Count 3.43 10^6/uL (3.85-5.65); Red Cell Distribution Width 16.7 % (12.1-15.1); White Blood Count 10.03 10^3/uL (3.29-11.43)
[2024-01-14] MEDS: potassium chloride oral liq 20 mEq/15 mL UDC 40 MEQ PO ×2 (08:51→17:15)
[2024-01-14] MEDS: clopidogrel 75 mg Tablet PO (08:52)
[2024-01-14] MEDS: levothyroxine 125 mcg Tablet PO (08:53)
[2024-01-14] MEDS: sertraline 50 mg Tablet PO (08:53)
[2024-01-14] MEDS: cholecalciferol (vitamin D3) 1,000 unit Tablet 1000 UNIT PO (08:53)
[2024-01-14] MEDS: aspirin 81 mg EC Tablet PO (08:53)
[2024-01-14] MEDS: lactobacillus 1 Tablet 2 TAB PO ×2 (09:00→17:12)
[2024-01-14 09:02] LABS: Ferritin 136 ng/mL (30-400); NT Pro B Type Natriuretic Pept 16362 pg/mL (0-125)
--- NOTE | 2024-01-14 09:10 | PM.PN ---
Subjective Subjective: Patient feeling well. No chest pain. Vitals/I&O/Wt Last Vital Signs Temp 98.2 F 01/14/24 04:18 Pulse 59 L 01/14/24 08:00 Resp 17 01/14/24 08:00 BP 110/50 01/14/24 08:00 Pulse Ox 93 01/14/24 08:00 O2 Del Method Room Air 01/14/24 08:00 O2 Flow Rate 2 01/09/24 20:00 01/13/24 01/14/24 01/14/24 22:59 06:59 14:59 Intake Total 630 / 1160 100 / 1260 170 / 170 Output Total 650 / 650 450 / 1100 Balance -20 / 510 -350 / 160 170 / 170 Weight last 48 hrs Weight 220 lb Weight 214 lb Weight 214 lb Physical Exam Narrative: GENERAL: Patient is alert, awake and oriented x3. [] NECK: No jugular vein distension. [] HEENT: No cyanosis. No icterus. No pallor. [] HEART: Regular S1 and S2. Grade 3/6 systolic murmur LUNGS: Clear to auscultate bilaterally. [] CENTRAL NERVOUS SYSTEM: Grossly nonfocal. [] EXTREMITIES: Lower extremities with 1+ edema bilaterally. Urinary Catheter Management: Peoples: Cath Placed During This Visit: yes Reason for Continuing Indwelling Catheter: Other Urinary Catheter Date of Insertion: 01/06/24 Urinary Catheter Time of Insertion: 15:30 Data 01/15/24 05:13 01/15/24 05:13 A&P Assessment and plan (1) Bacteremia due to Enterococcus: (2) History of aortic valve replacement with bioprosthetic valve: (3) CHF exacerbation: Qualifiers: Heart failure type: systolic Qualified Code(s): I50.23 - Acute on chronic systolic (congestive) heart failure (4) PVD (peripheral vascular disease): (5) Intermittent atrial fibrillation: Plan Diuretics held. Monitor renal function. If creatinine improves by tomorrow, can reinitiate PO diuretic therapy Thank you for involving us with care of this patient. We will continue to follow. Please call with questions Attestations Medical Necessity Statement*: Care expected to cross 2 midnights. Coding Level of Care Code Acute Code for [facility] Fwd Diagnoses Bacteremia due to Enterococcus R78.81; B95.2 History of aortic valve replacement with bioprosthetic valve Z95.3 Acute on chronic systolic congestive heart failure I50.23 Heart failure type: systolic PVD (peripheral vascular disease) I73.9 Intermittent atrial fibrillation I48.0
[2024-01-14 09:36] LABS: T3 Free 0.9 PG/ML (2.0-4.4)
--- NOTE | 2024-01-14 10:42 | PC.NURSE ---
Bladder was irrigated. Flow was clear and no blood clots observed.
[2024-01-14 10:47] LABS: Glucose Point of Care 148 mg/dL (70-110)
--- NOTE | 2024-01-14 10:49 | PC.NURSE ---
Addendum entered by Shelly Ko RN 01/14/24 10:51: If Peoples catheter continues to have hematuria please start CBI to keep flowing per Dr. Copeland Original Note: If Peoples catheter continues to have hematuria
[2024-01-14 11:14] VITALS: BP 127/61; PULSE 65; RESP 17; TEMP 36.7; O2SAT 95
[2024-01-14] MEDS: insulin lispro 100 unit/1 mL SUBCUT ×2 (12:21→17:11)
[2024-01-14] MEDS: heparin 5,000 unit/mL INJ 1 mL 5000 UNIT SUBCUT ×2 (12:22→23:42)
--- NOTE | 2024-01-14 15:34 | PM.PN ---
Vitals/I&O/Wt Last Vital Signs Temp 98.0 F 01/14/24 11:14 Pulse 65 01/14/24 11:14 Resp 17 01/14/24 11:14 BP 127/61 01/14/24 11:14 Pulse Ox 95 01/14/24 11:14 O2 Del Method Room Air 01/14/24 11:14 O2 Flow Rate 2 01/09/24 20:00 01/14/24 01/14/24 01/14/24 06:59 14:59 22:59 Intake Total 100 / 1260 170 / 170 Output Total 450 / 1100 400 / 400 Balance -350 / 160 -230 / -230 Weight last 48 hrs Weight 99.79 kg Weight 97.069 kg Weight 97.069 kg Physical Exam Const: COMMON NORMALS: no acute distress and patient oriented x3 Resp: COMMON NORMALS: normal respiratory effort, No retractions, No use of accessory muscles and clear to auscultation bilaterally AUSCULTATION: clear to auscultation bilaterally Cardio: COMMON NORMALS: regular rate, regular rhythm, S1 normal heart sound present and S2 normal heart sound present RATE: regular rate RHYTHM: regular rhythm HEART SOUNDS: S1 normal heart sound present and S2 normal heart sound present GI: COMMON NORMALS: Normal to inspection, nondistended, normoactive bowel sounds present and non-tender Extremity: NARRATIVE EXTREMITY EXAM: 1+ edema Neuro: COMMON NORMALS: patient oriented x3 Psych: COMMON NORMALS: mental status grossly normal Urinary Catheter Management: Peoples: Cath Placed During This Visit: yes Reason for Continuing Indwelling Catheter: Other Urinary Catheter Date of Insertion: 01/06/24 Urinary Catheter Time of Insertion: 15:30 Data 01/14/24 04:12 01/14/24 04:12 A&P Assessment and plan (1) Non-pressure chronic ulcer of other part of left foot with fat layer exposed: (2) Status post transmetatarsal amputation of right foot: (3) Peripheral arterial disease: Recent angioplasty of right leg continue DAPT with aspirin and Plavix Continue statin (4) 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 mellitus: (5) Bacteremia due to Enterococcus: Overall plan is for 6 weeks IV antibiotics to cover for IE, treatment days for 01/08-02/19 Ampicillin dose adjusted to 2 g every 6 hours and Rocephin [address] Claros has completed all necessary paperwork and documented lab studies. [place] and the [facility] physician will need to cover in the interim she will be available for phone calls. (6) S/P aortic valve replacement with bioprosthetic valve: DAGMAR was negative for infectious endocarditis visually. However patient does meet [place] criteria and thus is being treated as IE (7) Infective endocarditis: Will receive treatment for infective endocarditis to be complete. Qualifiers: Infective endocarditis organism: bacterial Chronicity: subacute Qualified Code(s): I33.0 - Acute and subacute infective endocarditis (8) CHF exacerbation: Acute on chronic heart failure with diminished ejection fraction exacerbation Echocardiogram from May 2023 showed LVEF of 45 to 50% Patient is -10 L His diuresis has slowed down. Edema improving, creatinine 2.0 He was instructed to be more active with his leg exercises Hold Lasix for today Qualifiers: Heart failure type: systolic Qualified Code(s): I50.23 - Acute on chronic systolic (congestive) heart failure (9) Septicemia due to enterococcus: Overall plan per Dr. Claros is 6 weeks of IV antibiotics. (10) Lactic acidosis: Secondary to bacteremia. Now resolved (11) Wounds, multiple: Bilateral foot wounds with history of right TMA on 12/09 -appreciate Dr. Duggan's assistance. Right foot wound -x-ray shows no changes for osteomyelitis and Dr. Duggan's opinion noted that this is stable and improving. Dr. Duggan following and changing RLE dressing daily while patient hospitalized Greatly appreciate his expertise. (12) Diabetes: Type 2 diabetes mellitus on insulin, uncontrolled with hyperglycemia A1c 9.6 (12/04/2023) Patient has developed hypoglycemia during the night decreased 5 units at bedtime, switch to insulin sliding scale, moderate dose sliding scale Qualifiers: Diabetes mellitus type: type 2 Diabetes mellitus long term care administrator insulin use: with intermediate use Diabetes mellitus complication status: with circulatory complication Diabetes mellitus complication detail: with other circulatory complications Qualified Code(s): E11.59 - Type 2 diabetes mellitus with other circulatory complications; 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 tach on 01/09/2024. Electrolytes at that time were negative No further runs of V. tach for 3 days Now on oral medications DC telemetry (15) Intermittent atrial fibrillation: Discussed with Dr. Garcia yesterday. Patient is not on any anticoagulation for chronic intermittent atrial fibrillation. Assessment of history of GI bleed will need to be performed. At this time I do not want to add anticoagulation to his multiple medications Plan EZEQUIEL creatinine 1.9, monitor Gross hematuria,, monitor, will consider CBI hold heparin Elevated TSH, low T3, low T4, will increase levothyroxine to 150 mcg, 1 dose Cytomel Patient was agreeable to look for assisted living at the end of that discharge. Plan for today plan for today, continue IV antibiotics, hold diuresis, Attestations Medical Necessity Statement*: Patient requires hospitalization for EZEQUIEL, hematuria Diagnoses Non-pressure chronic ulcer of other part of left foot with fat layer exposed L97.522 Status post transmetatarsal amputation of right foot Z89.431 Peripheral arterial disease I73.9 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 mellitus E11.42 Bacteremia due to Enterococcus R78.81; B95.2 S/P aortic valve replacement with bioprosthetic valve Z95.3 Subacute bacterial endocarditis I33.0 Infective endocarditis organism: bacterial Chronicity: subacute Acute on chronic systolic congestive heart failure I50.23 Heart failure type: systolic Septicemia due to enterococcus A41.81 Lactic acidosis E87.20 Wounds, multiple T07.XXXA Type 2 diabetes mellitus with other circulatory complication, with long-term current use of insulin E11.59; Z79.4 Diabetes mellitus type: type 2 Diabetes mellitus long term care administrator insulin use: with long term care administrator use Diabetes mellitus complication status: with circulatory complication Diabetes mellitus complication detail: with other circulatory complications Benign prostatic hyperplasia, unspecified whether lower urinary tract symptoms present N40.0 Lower urinary tract symptom presence: unspecified whether lower urinary tract symptoms present Ventricular tachycardia, nonsustained I47.29 Intermittent atrial fibrillation I48.0
[2024-01-14 16:00] VITALS: BP 141/56; PULSE 64; RESP 18; TEMP 36.3; O2SAT 91
[2024-01-14 16:44] LABS: Glucose Point of Care 158 mg/dL (70-110)
[2024-01-14] MEDS: liothyronine 5 mcg Tablet PO (17:11)
--- NOTE | 2024-01-14 18:12 | PM.PN ---
Subjective Subjective: Mr. Kimble seen bedside this evening. Denies any complaints. Patient denies any subjective nausea, vomiting, fever, chills, shortness of breath or chest pain. Vitals/I&O/Wt Last Vital Signs Temp 97.4 F L 01/14/24 16:00 Pulse 64 01/14/24 16:00 Resp 18 01/14/24 16:00 BP 141/56 01/14/24 16:00 Pulse Ox 91 01/14/24 16:00 O2 Del Method Room Air 01/14/24 16:00 O2 Flow Rate 2 01/09/24 20:00 01/14/24 01/14/24 01/14/24 06:59 14:59 22:59 Intake Total 100 / 1260 170 / 170 240 / 410 Output Total 450 / 1100 400 / 400 Balance -350 / 160 -230 / -230 240 / 10 Weight last 48 hrs Weight 220 lb Weight 214 lb Weight 214 lb Physical Exam Narrative: Patient is alert and oriented ?3 and in no acute distress. The following is a focused bilateral lower extremity exam. VASCULAR: Dorsalis pedis palpable bilaterally. Posterior tibial arteries palpable. Diminished pedal hair growth bilaterally. NEUROLOGICAL: Protective sensation diminished to light touch. DERMATOLOGICAL: Betadine paint at the right transmetatarsal potation site, some stable eschar at the right transmetatarsal amputation site without fluctuance or bogginess, no purulence and no periwound erythema, no crepitus with soft tissue palpation. No purulence and no erythema. Grade 2 wound left foot plantar central foot measures 0.6 cm x 0.6 cm x 0.2 cm with granular base. No periwound erythema, warmth or drainage. Wound at the amputation site left fifth ray measures 1.0 cm x 0.3 cm x 0.2 cm with epithelialized margin and granular base. MUSCULOSKELETAL: Status post right transmetatarsal amputation. Left open for staged debridement and secondary closure. Urinary Catheter Management: Peoples: Cath Placed During This Visit: yes Reason for Continuing Indwelling Catheter: Other Urinary Catheter Date of Insertion: 01/06/24 Urinary Catheter Time of Insertion: 15:30 Data 01/15/24 05:13 01/15/24 05:13 Micro: Microbiology 01/09/24 17:30 Blood Culture - Final Blood NO GROWTH AFTER 5 DAYS 01/09/24 17:24 Blood Culture - Final Blood NO GROWTH AFTER 5 DAYS A&P Assessment and plan (1) Non-pressure chronic ulcer of other part of left foot with fat layer exposed: (2) Status post transmetatarsal amputation of right foot: (3) Peripheral arterial disease: (4) 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 mellitus: Plan Surendra Roland is a 73 year old male admitted to the hospital service for CHF exacerbation, lactic acidosis, bilateral foot wounds and was noted to have positive blood cultures with Enterococcus. Partial left fifth ray resection secondary to osteomyelitis was performed 07/16/2023 and continues to progress slowly. Right transmetatarsal amputation performed 12/06/2023 with delayed closure of amputation site 12/10/2023. Leukocytosis has resolved, 9.16 white blood cell count today Patient remains afebrile Erythrocyte sedimentation rate January 09, 2024 9 mm/h MRI right foot negative for acute osteomyelitis, negative for abscess. Stable interval of healing and overall clinically stable wound left and right foot. Okay for transfer/discharge from podiatry standpoint will follow-up weekly in podiatry clinic outpatient. Dressing change silver alginate at the left and right foot. Weightbearing status: Weightbearing as tolerated with Darco shoe to the left foot Right heel touch for transfers with posterior splint Attestations Medical Necessity Statement*: Bilateral diabetic foot ulcer Coding Level of Care Code Acute Code for [facility] Fwd Diagnoses Non-pressure chronic ulcer of other part of left foot with fat layer exposed L97.522 Status post transmetatarsal amputation of right foot Z89.431 Peripheral arterial disease I73.9 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 mellitus E11.42
[2024-01-14 19:49] VITALS: BP 167/60; PULSE 75; RESP 20; TEMP 36.7; O2SAT 90
[2024-01-14 20:14] LABS: Glucose Point of Care 204 mg/dL (70-110)
[2024-01-14] MEDS: insulin glargine 100 units/1 mL 5 UNIT SUBCUT (20:50)
[2024-01-14] MEDS: duloxetine 60 mg Capsule PO (20:51)
[2024-01-14] MEDS: atorvastatin 40 mg Tablet 20 MG PO (20:51)
[2024-01-14] MEDS: tamsulosin 0.4 mg Capsule 0.800000000000000044 MG PO (20:51)
[2024-01-14] MEDS: magnesium hydroxide 30 mL UDC PO (20:51)
[2024-01-14] MEDS: acetaminophen 325 mg Tablet 650 MG PO (20:52)
[2024-01-15] VITALS (10 sets, daily range): BP systolic 121–171; BP diastolic 45–83; PULSE 55–105; RESP 16–20; TEMP 36.4–37.1; O2SAT 92–100
[2024-01-15] MEDS: cefTRIAXone 2,000 MG in sodium chloride 0.9% (plus) 50 ML 100 MG IV ×2 (00:17→13:53)
[2024-01-15] MEDS: liothyronine 5 mcg Tablet PO ×3 (02:49→21:57)
[2024-01-15 05:34] LABS: Basophils # 0.1 10^3/uL (0.0-0.1); Basophils % 0.8 %; Eosinophils # 0.3 10^3/uL (0.0-0.8); Eosinophils % 3.2 %; Hematocrit 32.1 % (37-53); Lymphocytes # 0.6 10^3/uL (0.8-4.8); Mean Corpuscular HGB Conc 29.6 g/dL (30-55); Mean Corpuscular Hemoglobin 27.7 pg (27-33); Mean Corpuscular Volume 93.6 fl (82-101); Mean Platelet Volume 11.4 fL (7.4-10.4); Monocytes # 0.7 10^3/uL (0.2-0.9); Monocytes % 6.6 %; Neutrophils # 8.62 10^3/uL (1.8-7.7); Nucleated Red Blood Cells % 0 %; Platelet Count 168 10^3/cmm (157-399); Red Blood Count 3.43 10^6/uL (3.85-5.65); Red Cell Distribution Width 16.7 % (12.1-15.1); White Blood Count 10.37 10^3/uL (3.29-11.43)
[2024-01-15] MEDS: ampicillin 2,000 MG in sodium chloride 0.9% (plus) 50 ML 100 MG IV ×3 (05:37→17:52)
[2024-01-15 05:59] LABS: Alanine Aminotransferase 21 U/L (0-41); Albumin Level 3.5 g/dL (3.5-5.2); Alkaline Phosphatase 93 U/L (40-130); Anion Gap 16.3 (5-19); Aspartate Amino Transferase 34 U/L (0-40); Blood Urea Nitrogen 29 mg/dL (8-23); Calcium 8.5 mg/dL (8.5-10.5); Carbon Dioxide 24 mmol/L (22-29); Chloride 102 mmol/L (98-107); Creatinine Clr Calc Pharmacy 42.9566; Globulin 2.9 g/dL (1.3-4.6); Glucose 139 mg/dL (65-115); Magnesium 2.6 mg/dL (1.7-2.3); Osmolality Calculated 292 mOsm/kg (285-295); Phosphorus 2.9 mg/dL (2.5-4.5); Potassium 5.3 mmol/L (3.5-5.1); Sodium 137 mmol/L (136-145); Total Bilirubin 0.8 mg/dL (0.15-1.2); Total Protein 6.4 g/dL (6.6-8.7)
[2024-01-15 06:03] LABS: Free T4 Free Thyroxine 0.47 ng/dL (0.82-1.77); T3 Free 1.4 PG/ML (2.0-4.4); Thyroid Stimulating Hormone 72.68 uIU/mL (0.27-4.20)
[2024-01-15 06:31] LABS: Glucose Point of Care 135 mg/dL (70-110)
--- NOTE | 2024-01-15 06:57 | P.PN_ITS ---
Subjective 2 Subjective: Patient has shortness of breath. Mild volume overload. Vitals/I&O/Wt Last Vital Signs Temp 97.6 F 01/15/24 04:41 Pulse 68 01/15/24 04:41 Resp 18 01/15/24 04:41 BP 158/68 01/15/24 04:41 Pulse Ox 95 01/15/24 04:41 O2 Del Method Room Air 01/15/24 04:41 O2 Flow Rate 2 01/09/24 20:00 01/14/24 01/14/24 01/15/24 14:59 22:59 06:59 Intake Total 220 / 220 580 / 800 150 / 950 Output Total 400 / 400 600 / 1000 Balance -180 / -180 580 / 400 -450 / -50 Weight last 48 hrs Weight 223 lb 8 oz Weight 220 lb Physical Exam 2 Narrative: GENERAL: Patient is alert, awake and oriented x3. [] NECK: No jugular vein distension. [] HEENT: No cyanosis. No icterus. No pallor. [] HEART: Regular S1 and S2. Grade 3/6 systolic murmur LUNGS: Mild crackles bilaterally CENTRAL NERVOUS SYSTEM: Grossly nonfocal. [] EXTREMITIES: Lower extremities with 1+ edema bilaterally. Urinary Catheter Management: Peoples: Cath Placed During This Visit: yes Reason for Continuing Indwelling Catheter: Other Urinary Catheter Date of Insertion: 01/06/24 Urinary Catheter Time of Insertion: 15:30 Data 01/16/24 05:42 01/16/24 12:07 Micro: Microbiology 01/09/24 17:30 Blood Culture - Final Blood NO GROWTH AFTER 5 DAYS 01/09/24 17:24 Blood Culture - Final Blood NO GROWTH AFTER 5 DAYS A&P Assessment and plan (1) Bacteremia due to Enterococcus: (2) History of aortic valve replacement with bioprosthetic valve: (3) CHF exacerbation: Qualifiers: Heart failure type: systolic Qualified Code(s): I50.23 - Acute on chronic systolic (congestive) heart failure (4) PVD (peripheral vascular disease): (5) Intermittent atrial fibrillation: Plan Patient is overall stable. However will need reinitiation of diuretic therapy. Monitor renal function closely. Close I&O's Thank you for involving us with care of this patient. We will continue to follow. Please call with questions Attestations 2 Medical Necessity Statement*: Care expected to cross 2 midnights. Coding Level of Care Code Acute Code for [facility] Fwd Diagnoses Bacteremia due to Enterococcus R78.81; B95.2 History of aortic valve replacement with bioprosthetic valve Z95.3 Acute on chronic systolic congestive heart failure I50.23 Heart failure type: systolic PVD (peripheral vascular disease) I73.9 Intermittent atrial fibrillation I48.0
[2024-01-15] MEDS: potassium chloride oral liq 20 mEq/15 mL UDC 40 MEQ PO ×2 (07:15→17:52)
[2024-01-15] MEDS: acetaminophen 325 mg Tablet 650 MG PO (07:16)
[2024-01-15 08:22] LABS: Glucose Point of Care 182 mg/dL (70-110)
--- NOTE | 2024-01-15 08:37 | XRR_ITS ---
PROCEDURE INFORMATION: Exam: XR Chest Exam date and time: 01/15/2024 7:59 AM Age: 73 years old Clinical indication: Shortness of breath; Additional info: SOB TECHNIQUE: Imaging protocol: Radiologic exam of the chest. Views: 1 view. COMPARISON: CR (CHEST, ) 01/12/2024 1:00 PM FINDINGS: Tubes, catheters and devices: PICC line enters from the right and terminates near the atrial caval junction. Median sternotomy suture wires. Lungs: See Heart/Mediastinum finding. Pleural spaces: See Heart/Mediastinum finding. Heart/Mediastinum: Mild cardiomegaly, vascular engorgement, interstitial edema, and small right pleural effusion all suggest congestive heart failure. Bones/joints: Unremarkable. XR/XR chest 1V portable [id number] IMPRESSION: Slightly increasing CHF.
[2024-01-15] MEDS: clopidogrel 75 mg Tablet PO (08:43)
[2024-01-15] MEDS: lactobacillus 1 Tablet 2 TAB PO ×2 (08:43→17:52)
[2024-01-15] MEDS: sertraline 50 mg Tablet PO (08:43)
[2024-01-15] MEDS: levothyroxine 150 mcg Tablet PO (08:43)
[2024-01-15] MEDS: aspirin 81 mg EC Tablet PO (08:43)
[2024-01-15] MEDS: cholecalciferol (vitamin D3) 1,000 unit Tablet 1000 UNIT PO (08:43)
[2024-01-15 08:50] LABS: ABG PCO2 33.6 mmHg (35-45); ABG PH Result 7.47 (7.35-7.45); Arterial Blood Gas Hematocrit 29.6 % (42-52); Base Excess ABG 1.1 mmol/L (-2.0-2.0); Blood Gas Operator Identificat AMH; Blood Gas Sample Site Brachial, left; Blood Gas Sample Type Arterial; HCO3 ABG 24.5 mmol/L (22-26); Oxygen Device NC; PO2 ABG 76.5 mmHg (80.0-100.0); PO2 FiO2 Ratio Arterial Blood 0
[2024-01-15 09:21] LABS: NT Pro B Type Natriuretic Pept 16244 pg/mL (0-125)
--- NOTE | 2024-01-15 09:31 | PC.SOCIAL ---
IMM Update pg 2 of IMM updated and reviewed w/ patient. Copy provided and copy dated, initialed and placed in chart.
[2024-01-15] MEDS: metOLazone 5 MG Tablet PO (11:06)
[2024-01-15] MEDS: FUROsemide 10 mg/mL SDV 4mL 40 MG IVP (11:06)
[2024-01-15 11:30] LABS: Glucose Point of Care 168 mg/dL (70-110)
[2024-01-15] MEDS: heparin 5,000 unit/mL INJ 1 mL 5000 UNIT SUBCUT (13:04)
[2024-01-15] MEDS: insulin lispro 100 unit/1 mL SUBCUT ×2 (13:05→17:53)
--- NOTE | 2024-01-15 14:47 | PM.PN ---
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 will give him 2 doses of Cytomel today and increase his dose of levothyroxine to 150 mcg, check orthostatic vitals, patient in agreement, Vitals/I&O/Wt Last Vital Signs Temp 98.0 F 01/15/24 11:43 Pulse 61 01/15/24 11:43 Resp 16 01/15/24 11:43 BP 135/52 01/15/24 11:43 Pulse Ox 100 01/15/24 11:43 O2 Del Method Nasal Cannula 01/15/24 11:43 O2 Flow Rate 2 01/15/24 08:40 01/14/24 01/15/24 01/15/24 22:59 06:59 14:59 Intake Total 580 / 800 150 / 950 580 / 580 Output Total 600 / 1000 Balance 580 / 400 -450 / -50 580 / 580 Weight last 48 hrs Weight 101.378 kg Weight 99.79 kg Physical Exam Const: COMMON NORMALS: no acute distress and patient oriented x3 Resp: COMMON NORMALS: normal respiratory effort, No retractions, No use of accessory muscles and clear to auscultation bilaterally AUSCULTATION: clear to auscultation bilaterally Cardio: COMMON NORMALS: regular rate, regular rhythm, S1 normal heart sound present and S2 normal heart sound present RATE: regular rate RHYTHM: regular rhythm HEART SOUNDS: S1 normal heart sound present and S2 normal heart sound present GI: COMMON NORMALS: Normal to inspection, nondistended, normoactive bowel sounds present and non-tender Extremity: NARRATIVE EXTREMITY EXAM: 2+ pitting edema Neuro: COMMON NORMALS: patient oriented x3 Psych: COMMON NORMALS: mental status grossly normal Urinary Catheter Management: Peoples: Cath Placed During This Visit: yes Reason for Continuing Indwelling Catheter: Other Urinary Catheter Date of Insertion: 01/06/24 Urinary Catheter Time of Insertion: 15:30 Data 01/15/24 05:13 01/15/24 05:13 Micro: Microbiology 01/09/24 17:30 Blood Culture - Final Blood NO GROWTH AFTER 5 DAYS 01/09/24 17:24 Blood Culture - Final Blood NO GROWTH AFTER 5 DAYS A&P Assessment and plan (1) Non-pressure chronic ulcer of other part of left foot with fat layer exposed: (2) Status post transmetatarsal amputation of right foot: (3) Peripheral arterial disease: Recent angioplasty of right leg continue DAPT with aspirin and Plavix Continue statin (4) 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 mellitus: (5) Bacteremia due to Enterococcus: Overall plan is for 6 weeks IV antibiotics to cover for IE, treatment days for 01/08-02/19 Ampicillin dose adjusted to 2 g every 6 hours and Rocephin [address] Claros has completed all necessary paperwork and documented lab studies. [place] note [place] and the retirement physician will need to cover in the interim she will be available for phone calls. (6) S/P aortic valve replacement with bioprosthetic valve: DAGMAR was negative for infectious endocarditis visually. However patient does meet [place] criteria and thus is being treated as IE (7) Infective endocarditis: Will receive treatment for infective endocarditis to be complete. Qualifiers: Infective endocarditis organism: bacterial Chronicity: subacute Qualified Code(s): I33.0 - Acute and subacute infective endocarditis (8) CHF exacerbation: Qualifiers: Heart failure type: systolic Qualified Code(s): I50.23 - Acute on chronic systolic (congestive) heart failure (9) Septicemia due to enterococcus: Overall plan per Dr. Claros is 6 weeks of IV antibiotics. (10) Lactic acidosis: Secondary to bacteremia. Now resolved (11) Wounds, multiple: Bilateral foot wounds with history of right TMA on 12/09 -appreciate Dr. Duggan's assistance. Right foot wound -x-ray shows no changes for osteomyelitis and Dr. Duggan's opinion noted that this is stable and improving. Dr. Duggan following and changing RLE dressing daily while patient hospitalized Greatly appreciate his expertise. (12) Diabetes: Type 2 diabetes mellitus on insulin, uncontrolled with hyperglycemia A1c 9.6 (12/04/2023) Patient has developed hypoglycemia during the night decreased 5 units at bedtime, switch to insulin sliding scale, moderate dose sliding scale Qualifiers: Diabetes mellitus type: type 2 Diabetes mellitus moth exterminator insulin use: with usp use Diabetes mellitus complication status: with circulatory complication Diabetes mellitus complication detail: with other circulatory complications Qualified Code(s): E11.59 - Type 2 diabetes mellitus with other circulatory complications; Z79.4 - salvage determiner (current) use of insulin (13) Benign prostatic hyperplasia: Restart home Flomax Maintain Peoples while in hospital to assure appropriate output Qualifiers: Lower urinary tract symptom presence: unspecified whether lower urinary tract symptoms present Qualified Code(s): N40.0 - Benign prostatic hyperplasia without lower urinary tract symptoms (14) Ventricular tachycardia, nonsustained: Had a 9 beat run of V. tach on 01/09/2024. Electrolytes at that time were negative No further runs of V. tach for 3 days Now on oral medications DC telemetry (15) Intermittent atrial fibrillation: Discussed with Dr. Garcia yesterday. Patient is not on any anticoagulation for chronic intermittent atrial fibrillation. Assessment of history of GI bleed will need to be performed. At this time I do not want to add anticoagulation to his multiple medications Plan Now with CHF exacerbation fluid overload 2+ pitting edema BNP over 16,000 chest x-ray showing pulm vascular congestion complaints of shortness of breath --10 L so far -Lasix 40 mg IV push once with metolazone -Monitor respiratory status closely Concerns for myxedema coma TSH 72.68, free T40.47, free T31.4 ? Increase levothyroxine to 150 mcg once daily, Cytomel 2 doses 5 mg twice daily EZEQUIEL creatinine 1.9, monitor Gross hematuria,resolved Patient was agreeable to look for assisted living at the end of that discharge. Plan for today plan for today, continue IV antibiotics, hold diuresis, Attestations Medical Necessity Statement*: Patient requires hospitalization, for CHF exacerbation fluid overload, concerns for myxedema coma Diagnoses Non-pressure chronic ulcer of other part of left foot with fat layer exposed L97.522 Status post transmetatarsal amputation of right foot Z89.431 Peripheral arterial disease I73.9 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 mellitus E11.42 Bacteremia due to Enterococcus R78.81; B95.2 S/P aortic valve replacement with bioprosthetic valve Z95.3 Subacute bacterial endocarditis I33.0 Infective endocarditis organism: bacterial Chronicity: subacute Acute on chronic systolic congestive heart failure I50.23 Heart failure type: systolic Septicemia due to enterococcus A41.81 Lactic acidosis E87.20 Wounds, multiple T07.XXXA Type 2 diabetes mellitus with other circulatory complication, with long-term current use of insulin E11.59; Z79.4 Diabetes mellitus type: type 2 Diabetes mellitus moth exterminator insulin use: with moth exterminator use Diabetes mellitus complication status: with circulatory complication Diabetes mellitus complication detail: with other circulatory complications Benign prostatic hyperplasia, unspecified whether lower urinary tract symptoms present N40.0 Lower urinary tract symptom presence: unspecified whether lower urinary tract symptoms present Ventricular tachycardia, nonsustained I47.29 Intermittent atrial fibrillation I48.0
[2024-01-15 17:21] LABS: Glucose Point of Care 152 mg/dL (70-110)
[2024-01-15] MEDS: duloxetine 60 mg Capsule PO (20:23)
[2024-01-15] MEDS: magnesium hydroxide 30 mL UDC PO (20:23)
[2024-01-15] MEDS: tamsulosin 0.4 mg Capsule 0.800000000000000044 MG PO (20:23)
[2024-01-15] MEDS: insulin glargine 100 units/1 mL 5 UNIT SUBCUT (20:24)
[2024-01-15] MEDS: atorvastatin 40 mg Tablet 20 MG PO (20:24)
[2024-01-15 20:33] LABS: Glucose Point of Care 247 mg/dL (70-110)
[2024-01-16] MEDS: heparin 5,000 unit/mL INJ 1 mL 5000 UNIT SUBCUT ×2 (00:37→11:45)
[2024-01-16] MEDS: cefTRIAXone 2,000 MG in sodium chloride 0.9% (plus) 50 ML 100 MG IV ×2 (00:37→13:46)
[2024-01-16] MEDS: ampicillin 2,000 MG in sodium chloride 0.9% (plus) 50 ML 100 MG IV ×3 (00:37→11:44)
[2024-01-16 04:00] VITALS: BP 136/47; PULSE 66; RESP 20; TEMP 36.4; O2SAT 95
[2024-01-16] MEDS: acetaminophen 325 mg Tablet 650 MG PO (04:28)
[2024-01-16 05:50] LABS: Basophils # 0.1 10^3/uL (0.0-0.1); Basophils % 0.9 %; Eosinophils # 0.4 10^3/uL (0.0-0.8); Eosinophils % 3.9 %; Hematocrit 32.8 % (37-53); Lymphocytes # 0.6 10^3/uL (0.8-4.8); Mean Corpuscular HGB Conc 28.7 g/dL (30-55); Mean Corpuscular Hemoglobin 27.1 pg (27-33); Mean Corpuscular Volume 94.5 fl (82-101); Mean Platelet Volume 10.6 fL (7.4-10.4); Monocytes # 0.6 10^3/uL (0.2-0.9); Monocytes % 6.1 %; Neutrophils % 82.8 %; Nucleated Red Blood Cells % 0 %; Platelet Count 158 10^3/cmm (157-399); Red Blood Count 3.47 10^6/uL (3.85-5.65); Red Cell Distribution Width 16.6 % (12.1-15.1); White Blood Count 10.27 10^3/uL (3.29-11.43)
[2024-01-16 06:21] LABS: Thyroid Stimulating Hormone 71.47 uIU/mL (0.27-4.20)
[2024-01-16 06:25] LABS: Glucose Point of Care 138 mg/dL (70-110)
[2024-01-16 07:26] VITALS: BP 119/61; PULSE 53; RESP 15; TEMP 36.6; O2SAT 96
[2024-01-16 08:42] VITALS: PULSE 57; O2SAT 92
[2024-01-16 09:00] LABS: Anion Gap 15.7 (5-19); Blood Urea Nitrogen 30 mg/dL (8-23); Calcium 8.8 mg/dL (8.5-10.5); Carbon Dioxide 25 mmol/L (22-29); Chloride 103 mmol/L (98-107); Creatinine Clr Calc Pharmacy 42.9623; Glucose 124 mg/dL (65-115); Osmolality Calculated 294 mOsm/kg (285-295); Potassium 5.7 mmol/L (3.5-5.1); Sodium 138 mmol/L (136-145)
[2024-01-16] MEDS: lactobacillus 1 Tablet 2 TAB PO (09:04)
[2024-01-16] MEDS: potassium chloride oral liq 20 mEq/15 mL UDC 40 MEQ PO (09:04)
[2024-01-16] MEDS: clopidogrel 75 mg Tablet PO (09:05)
[2024-01-16] MEDS: levothyroxine 150 mcg Tablet PO (09:05)
[2024-01-16] MEDS: aspirin 81 mg EC Tablet PO (09:05)
[2024-01-16] MEDS: cholecalciferol (vitamin D3) 1,000 unit Tablet 1000 UNIT PO (09:06)
[2024-01-16] MEDS: FUROsemide 10 mg/mL SDV 4mL 40 MG IVP (09:53)
[2024-01-16] MEDS: sodium polystyrene sulfonate 15 gm/60 mL Btl PO (09:53)
[2024-01-16] MEDS: liothyronine 5 mcg Tablet PO (09:57)
[2024-01-16 10:04] LABS: Vit D 1,25 (Oh)2, Total 12 pg/mL (18-72); Vit D2 1,25 (Oh)2 <8 pg/mL; Vit D3 1,25 (Oh)2 12 pg/mL
[2024-01-16] MEDS: sertraline 50 mg Tablet PO (10:27)
--- NOTE | 2024-01-16 10:43 | P.PN_ITS ---
Subjective 2 Subjective: Patient doing well. Breathing has improved Vitals/I&O/Wt Last Vital Signs Temp 97.8 F 01/16/24 07:26 Pulse 57 L 01/16/24 08:42 Resp 15 01/16/24 07:26 BP 119/61 01/16/24 07:26 Pulse Ox 92 01/16/24 08:42 O2 Del Method Room Air 01/16/24 08:42 O2 Flow Rate 2 01/15/24 20:00 01/15/24 01/16/24 01/16/24 22:59 06:59 14:59 Intake Total 410 / 990 270 / 1260 Output Total 1650 / 1650 800 / 2450 425 / 425 Balance -1240 / -660 -530 / -1190 -425 / -425 Weight last 48 hrs Weight 223 lb 9 oz Weight 223 lb 8 oz Physical Exam 2 Narrative: GENERAL: Patient is alert, awake and oriented x3. [] NECK: No jugular vein distension. [] HEENT: No cyanosis. No icterus. No pallor. [] HEART: Regular S1 and S2. Grade 3/6 systolic murmur LUNGS: Mild crackles bilaterally CENTRAL NERVOUS SYSTEM: Grossly nonfocal. [] EXTREMITIES: Lower extremities with 1+ edema bilaterally. Urinary Catheter Management: Peoples: Cath Placed During This Visit: yes Reason for Continuing Indwelling Catheter: Other Urinary Catheter Date of Insertion: 01/06/24 Urinary Catheter Time of Insertion: 15:30 Data 01/16/24 05:42 01/16/24 12:07 A&P Assessment and plan (1) Bacteremia due to Enterococcus: (2) History of aortic valve replacement with bioprosthetic valve: (3) CHF exacerbation: Qualifiers: Heart failure type: systolic Qualified Code(s): I50.23 - Acute on chronic systolic (congestive) heart failure (4) PVD (peripheral vascular disease): (5) Intermittent atrial fibrillation: Plan Patient is doing well. Continue bumex. Patient is stable to be discharged from cardiology standpoint. Attestations 2 Medical Necessity Statement*: Care expected to cross 2 midnights. Coding Level of Care Code Acute Code for Chg Fwd Diagnoses Bacteremia due to Enterococcus R78.81; B95.2 History of aortic valve replacement with bioprosthetic valve Z95.3 Acute on chronic systolic congestive heart failure I50.23 Heart failure type: systolic PVD (peripheral vascular disease) I73.9 Intermittent atrial fibrillation I48.0
[2024-01-16 11:43] VITALS: BP 135/48; PULSE 65; RESP 15; TEMP 36.7; O2SAT 93
[2024-01-16 11:53] LABS: Glucose Point of Care 137 mg/dL (70-110)
--- NOTE | 2024-01-16 11:59 | PM.DCS ---
Discharge Providers Date of Admission: 01/06/24 15:54 Date of Discharge: January 16, 2024 Attending Provider at Admission: Rodolfo Poole MD Attending Provider at Discharge: Omar Copeland MD Primary Care Provider: Rowdy Sheldon DO Diagnoses at Discharge Discharge Diagnosis (1) Non-pressure chronic ulcer of other part of left foot with fat layer exposed: Status: Acute (2) Status post transmetatarsal amputation of right foot: Status: Acute (3) Peripheral arterial disease: Status: Acute (4) 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 mellitus: Status: Acute (5) Bacteremia due to Enterococcus: Status: Acute (6) S/P aortic valve replacement with bioprosthetic valve: Status: Acute (7) Infective endocarditis: Status: Acute Qualifiers: Infective endocarditis organism: bacterial Chronicity: subacute Qualified Code(s): I33.0 - Acute and subacute infective endocarditis Permanent problem details: suspected diagnosis (8) CHF exacerbation: Status: Acute Qualifiers: Heart failure type: systolic Qualified Code(s): I50.23 - Acute on chronic systolic (congestive) heart failure (9) Septicemia due to enterococcus: Status: Acute (10) Lactic acidosis: Status: Resolved (11) Wounds, multiple: Status: Chronic (12) Diabetes: Status: Acute Qualifiers: Diabetes mellitus type: type 2 Diabetes mellitus skilled nursing insulin use: with skilled nursing use Diabetes mellitus complication status: with circulatory complication Diabetes mellitus complication detail: with other circulatory complications Qualified Code(s): E11.59 - Type 2 diabetes mellitus with other circulatory complications; Z79.4 - retirement (current) use of insulin (13) Benign prostatic hyperplasia: Status: Acute Qualifiers: Lower urinary tract symptom presence: unspecified whether lower urinary tract symptoms present Qualified Code(s): N40.0 - Benign prostatic hyperplasia without lower urinary tract symptoms (14) Ventricular tachycardia, nonsustained: Status: Acute Permanent problem details: 9 beat run (15) Intermittent atrial fibrillation: Status: Acute Reason for Visit Reason for Visit: RESP. DISTRESS Hospital Course Hospital Course Patient was recently hospitalized for right foot gangrene. Patient had right MTA on 12/06/2023 with delayed closure 12/10/2023. He was septic with Enterococcus faecalis and sent to [facility] to complete a 14-day regimen of antibiotics. He was taking Unasyn at [facility]. He was discharged on 328 and returned to the emergency room on 01/05/2024. He presented with increased shortness of breath weakness and a 40 pound weight gain over the last month. He was found to have CHF and was admitted. Patient was taking Bumex 1 mg twice a day this was doubled in the IV form. Blood cultures are again positive for Enterococcus will await sensitivities. Plan for return to [facility] for longer treatment of antibiotics. Patient had a prolonged hospitalization, found to have bacteremia secondary to Enterococcus, concerning for infective endocarditis, will be discharged to [facility] on ampicillin 2 g every 6 hours and Rocephin 2 g every 12 hours, stop date 02/20/2024, with weekly CBCs and CMP, follow-up with Every 30 in a month Patient's hospitalization was complicated with fluid overload CHF exacerbation requiring IV diuresis, carries over 10 L so far, discharged on Bumex 1 mg daily with potassium replacement Patient's hospitalization was complicated with concerns for developing myxedema coma, requiring increased dose of levothyroxine, Cytomel, discharged on 3 more days of Cytomel, levothyroxine 150 mcg daily, recheck TSH and free T3, free T4 in 6 weeks EZEQUIEL during hospitalization monitor potassium as outpatient History of intermittent A-fib, could not be discharged on Coreg due to developing orthostatic hypotension, continue to monitor, was not discharged on anticoagulation therapy due to history of GI bleeds, discussed risk and benefits of patient, he voiced understanding, all questions answered, agreed to proceed Right transmetatarsal amputation performed 12/06/2023 with delayed closure of amputation site 12/10/2023. Podiatry was consulted, continue to monitor Physical Exam Const: COMMON NORMALS: no acute distress and patient oriented x3 Resp: COMMON NORMALS: normal respiratory effort, No retractions, No use of accessory muscles and clear to auscultation bilaterally AUSCULTATION: clear to auscultation bilaterally Cardio: COMMON NORMALS: regular rate, regular rhythm, S1 normal heart sound present and S2 normal heart sound present RATE: regular rate RHYTHM: regular rhythm HEART SOUNDS: S1 normal heart sound present and S2 normal heart sound present GI: COMMON NORMALS: Normal to inspection, nondistended, normoactive bowel sounds present and non-tender Neuro: COMMON NORMALS: patient oriented x3 Psych: COMMON NORMALS: mental status grossly normal Urinary Catheter Management: Peoples: Cath Placed During This Visit: yes Reason for Continuing Indwelling Catheter: Other Urinary Catheter Date of Insertion: 01/06/24 Urinary Catheter Time of Insertion: 15:30 Discharge Data Studies Completed and Pending Completed Studies During Hospitalization Category Date Time Status CT abdomen pelvis wo con [id number] Routine Cat Scan 01/10/24 12:08 Completed CXRP [XR chest 1V portable [id number]] Routine Exams 01/12/24 13:20 Completed XR chest 1V portable [id number] Stat Exams 01/05/24 19:56 Completed XR chest 1V portable [id number] Stat Exams 01/15/24 08:37 Completed XR foot LT 2V [id number] Routine Exams 01/06/24 13:13 Completed XR foot RT min 3V* [id number] Routine Exams 01/06/24 16:01 Completed MR foot RT wo con* [id number] Routine MRI 01/10/24 12:05 Completed DAGMAR [CV. echo transesophageal [id number]] Routine Ultrasound 01/10/24 11:00 Completed US venous duplex lower extremity LT [CV venous duplex Ultrasound 01/14/24 08:25 [place] [id number]] Routine Pending at discharge Category Date Time Status BMP [Basic Metabolic Panel] Stat Lab 01/16/24 11:00 Ordered Blood Culture Stat Lab 01/05/24 20:29 Results Complete Blood Count w/Auto AM LABS Lab 01/17/24 04:00 Ordered T3 Free AM LABS Lab 01/17/24 04:00 Ordered TSH [Thyroid Stimulating Hormone] AM LABS Lab 01/17/24 04:00 Ordered Radiology Impressions Foot MRI 01/10/24 12:05 IMPRESSION: 1. Limited noncontrast examination without MR evidence of acute osteomyelitis. 2. Additional findings, as above. Chest X-Ray 01/15/24 08:37 IMPRESSION: Slightly increasing CHF. Laboratory Results WBC 10.27 10^3/uL (3.29-11.43) 01/16/24 05:42 RBC 3.47 10^6/uL (3.85-5.65) L 01/16/24 05:42 Hgb 9.40 g/dL (11.27-16.99) L 01/16/24 05:42 Hct 32.8 % (37-53) L 01/16/24 05:42 MCV 94.5 fl (82-101) 01/16/24 05:42 MCH 27.1 pg (27-33) 01/16/24 05:42 MCHC 28.7 g/dL (30-55) L 01/16/24 05:42 RDW 16.6 % (12.1-15.1) H 01/16/24 05:42 Plt Count 158 10^3/cmm (157-399) 01/16/24 05:42 MPV 10.6 fL (7.4-10.4) H 01/16/24 05:42 Neut % (Auto) 82.8 % 01/16/24 05:42 Lymph % (Auto) 6.0 % 01/16/24 05:42 Marshall % (Auto) 6.1 % 01/16/24 05:42 Eos % (Auto) 3.9 % 01/16/24 05:42 Baso % (Auto) 0.9 % 01/16/24 05:42 Neut # (Auto) 8.50 10^3/uL (1.8-7.7) H 01/16/24 05:42 Lymph # (Auto) 0.6 10^3/uL (0.8-4.8) L 01/16/24 05:42 Marshall # (Auto) 0.6 10^3/uL (0.2-0.9) 01/16/24 05:42 Eos # (Auto) 0.4 10^3/uL (0.0-0.8) 01/16/24 05:42 Baso # (Auto) 0.1 10^3/uL (0.0-0.1) 01/16/24 05:42 Nucleated RBC % (auto) 0 % 01/16/24 05:42 Nucleated RBCs # 0.0 /100WBC 01/16/24 05:42 ESR 9 mm/hr (0-10) 01/09/24 03:57 PT 17.50 SECONDS (12.1-14.9) H 01/05/24 18:56 INR 1.39 (0.8-1.2) H 01/05/24 18:56 Specimen Type Arterial 01/15/24 08:39 Sample Site Brachial, left 01/15/24 08:39 ABG pH 7.47 (7.35-7.45) H 01/15/24 08:39 ABG pCO2 33.6 mmHg (35-45) L 01/15/24 08:39 ABG pO2 76.5 mmHg (80.0-100.0) L 01/15/24 08:39 ABG PO2/FiO2 Ratio 0 01/15/24 08:39 ABG HCO3 24.5 mmol/L (22-26) 01/15/24 08:39 ABG Base Excess 1.1 mmol/L (-2.0-2.0) 01/15/24 08:39 Sam Test N/a 01/15/24 08:39 Hematocrit 29.6 % (42-52) L 01/15/24 08:39 Hgb O2 Saturation 92.1 % (95-100) L 01/05/24 20:11 Carboxyhemoglobin 2.2 %THgb (0.4-20.1) 01/05/24 20:11 Methemoglobin 0.2 % (0.4-1.5) L 01/05/24 20:11 Total Hemoglobin 11.4 g/dL (14-18) L 01/05/24 20:11 O2 Delivery Device Nc 01/15/24 08:39 O2 Liters/Min 2.0 % 01/15/24 08:39 FiO2 28.0 % 01/15/24 08:39 Fur Blowing Machine Attendant ID Amh 01/15/24 08:39 Sodium 138 mmol/L (136-145) 01/16/24 05:42 Potassium 5.7 mmol/L (3.5-5.1) H 01/16/24 05:42 Chloride 103 mmol/L (98-107) 01/16/24 05:42 Carbon Dioxide 25 mmol/L (22-29) 01/16/24 05:42 Anion Gap 15.7 (5-19) 01/16/24 05:42 BUN 30 mg/dL (8-23) H 01/16/24 05:42 Creatinine 1.8 mg/dL (0.7-1.2) H 01/16/24 05:42 GFR Calculation Not Reportable 01/16/24 05:42 Glucose 124 mg/dL (65-115) H 01/16/24 05:42 POC Glucose 137 mg/dL (70-110) H 01/16/24 11:24 Calculated Osmolality 294 mOsm/kg (285-295) 01/16/24 05:42 Lactic Acid 6.8 mmol/L (0.5-2.2) H* 01/05/24 18:56 Lactic Acid (Sepsis) 3.3 mmol/L (0.5-2.2) H 01/05/24 22:25 Calcium 8.8 mg/dL (8.5-10.5) 01/16/24 05:42 Phosphorus 2.9 mg/dL (2.5-4.5) 01/15/24 05:13 Magnesium 2.6 mg/dL (1.7-2.3) H 01/15/24 05:13 Ferritin 136 ng/mL (30-400) 01/14/24 04:12 Total Bilirubin 0.8 mg/dL (0.15-1.2) 01/15/24 05:13 Direct Bilirubin 0.20 mg/dL (0.00-0.30) 01/13/24 02:15 AST 34 U/L (0-40) 01/15/24 05:13 ALT 21 U/L (0-41) 01/15/24 05:13 Alkaline Phosphatase 93 U/L (40-130) 01/15/24 05:13 C-Reactive Protein 51.4 mg/L (0.0-4.9) H 01/09/24 17:24 NT-Pro-B Natriuret Pep 10998 pg/mL (0-125) H 01/15/24 05:13 Total Protein 6.4 g/dL (6.6-8.7) L 01/15/24 05:13 Albumin 3.5 g/dL (3.5-5.2) 01/15/24 05:13 Globulin 2.9 g/dL (1.3-4.6) 01/15/24 05:13 25-OH Vitamin D Total 12 pg/mL (18-72) L 01/13/24 02:56 1,25 Dihydroxy Vit D2 <8 pg/mL 01/13/24 02:56 1,25 Dihydroxy Vit D3 12 pg/mL 01/13/24 02:56 Procalcitonin 0.78 ng/mL (0-0.5) H 01/06/24 00:00 TSH 71.47 uIU/mL (0.27-4.20) H 01/16/24 05:42 Free T4 0.47 ng/dL (0.82-1.77) L 01/15/24 05:13 Free T3 1.0 PG/ML (2.0-4.4) L 01/16/24 05:42 Urine Color Yellow (Yellow) 01/05/24 19:30 Urine Appearance Clear (CLEAR) 01/05/24 19:30 Urine pH 5 (5-7) 01/05/24 19:30 Ur Specific [place] 1.010 (1.005-1.030) 01/05/24 19:30 Urine Protein Neg (Negative) 01/05/24 19:30 Urine Glucose (UA) 4+ (Normal) H 01/05/24 19:30 Urine Ketones Negative (Negative) 01/05/24 19:30 Urine Blood Neg (Negative) 01/05/24 19:30 Urine Nitrate Negative (Negative) 01/05/24 19:30 Urine Bilirubin Neg (Negative) 01/05/24 19:30 Urine Urobilinogen Neg mg/dL (Negative) 01/05/24 19:30 Ur Leukocyte Esterase Negative (Negative) 01/05/24 19:30 Adenovirus (PCR) Not detected (NOT DETECT) 01/05/24 21:38 C. pneumoniae DNA (PCR) Not detected (NOT DETECT) 01/05/24 21:38 Coronavirus 229E (PCR) Not detected (NOT DETECT) 01/05/24 21:38 Human Metapneumovir PCR Not detected (NOT DETECT) 01/05/24 21:38 Influenza A (H1) PCR Not detected (NOT DETECT) 01/05/24 21:38 Influ A (H1/09) PCR Not detected (NOT DETECT) 01/05/24 21:38 Influenza A (H3) PCR Not detected (NOT DETECT) 01/05/24 21:38 Influenza Type A (PCR) Not detected (NOT DETECT) 01/05/24 21:38 Influenza Type B (PCR) Not detected (NOT DETECT) 01/05/24 21:38 M. pneumoniae (PCR) Not detected (NOT DETECT) 01/05/24 21:38 Parainfluenza 1 (PCR) Not detected (NOT DETECT) 01/05/24 21:38 Parainfluenza 2 (PCR) Not detected (NOT DETECT) 01/05/24 21:38 Parainfluenza 3 (PCR) Not detected (NOT DETECT) 01/05/24 21:38 Parainfluenza 4 (PCR) Not detected (NOT DETECT) 01/05/24 21:38 RSV Type A (PCR) Not detected (NOT DETECT) 01/05/24 21:38 RSV Type B (PCR) Not detected (NOT DETECT) 01/05/24 21:38 Entero/Rhino (PCR) Detected (NOT DETECT) A 01/05/24 21:38 SARS-CoV-2 (PCR) Not detected (NOT DETECT) 01/05/24 21:38 SARS-CoV-2 Ag (Rapid) negative (Negative) 01/13/24 09:12 MRSA (PCR) Detected (NOT DETECTED) A 01/06/24 01:40 Vitals Last Vital Signs Temp 98.0 F 01/16/24 11:43 Pulse 65 01/16/24 11:43 Resp 15 01/16/24 11:43 BP 135/48 01/16/24 11:43 Pulse Ox 93 01/16/24 11:43 O2 Del Method Room Air 01/16/24 11:43 O2 Flow Rate 2 01/15/24 20:00 Discharge Plan Discharge Patient Disposition: Xfer SNF Condition: Stable Prescriptions: New liothyronine 5 mcg Tablet 5 mcg PO Q12H 3 Days Qty: 6 0RF potassium chloride 20 mEq/15 mL Liquid 40 meq PO DAILY 30 Days Qty: 1200 0RF levothyroxine 150 mcg capsule 150 mcg PO DAILY 30 Days Qty: 30 0RF ceftriaxone 2 gram recon soln 2 g IV Q12H 35 Days Qty: 50 0RF Rx Instructions: Stop date 02/20/2024 ampicillin sodium 2 gram recon soln 2 g IV Q6H 35 Days Qty: 50 0RF Rx Instructions: Stop date 02/20/2024 levothyroxine 150 mcg Tablet 150 mcg PO DAILY 30 Days Qty: 30 0RF Humalog U-100 Insulin 100 unit/mL Solution See Rx Instructions .ROUTE .COMPLEX Qty: 10 0RF Rx Instructions: Inject, subcut, 3 times daily, after meals, based on sliding scale provided Continued duloxetine [Cymbalta] 60 mg capsule,delayed release(DR/EC) 60 mg PO BEDTIME (DME) FreeStyle Marisela 14 Day Sensor Kit See Rx Instructions .ROUTE .MEDSUPPLY Qty: 1 Rx Instructions: As directed cholecalciferol (vitamin D3) 25 mcg (1,000 unit) capsule 25 mcg PO QAM sertraline 50 mg tablet 50 mg PO QAM Vit B-12 tablet 1,000 mcg PO DAILY (DME) Diabetic shoes with 3 pair of inserts See Rx Instructions .Route .MEDSUPPLY Qty: 1 0RF Rx Instructions: As directed by HOME multivitamin Tablet 1 tab PO QAM hydrocodone-acetaminophen 5-325 mg tablet 1 tab PO Q6H PRN (Reason: pain) Qty: 14 0RF atorvastatin 40 mg Tablet 20 mg PO BEDTIME Qty: 30 0RF tamsulosin [Flomax] 0.4 mg capsule 0.8 mg PO BEDTIME Qty: 14 0RF ferrous sulfate [Iron (ferrous sulfate)] 325 mg (65 mg iron) Tablet 325 mg PO DAILY clopidogrel 75 mg Tablet 75 mg PO DAILY Qty: 90 0RF aspirin 81 mg Tablet,Delayed Release (Dr/Ec) 81 mg PO DAILY Qty: 90 2RF Changed bumetanide 1 mg tablet 1 mg PO DAILY 30 Days Qty: 30 0RF Lantus Solostar U-100 Insulin 100 unit/mL (3 mL) Insulin Pen 5 unit SUBCUT QPM Qty: 15 0RF Discontinued levothyroxine 125 mcg tablet 125 mcg PO DAILY Jardiance 25 mg tablet 25 mg PO QAM insulin lispro [Humalog KwikPen Insulin] 100 unit/mL insulin pen See Protocol SUBCUT TID Qty: 15 0RF Protocol: Insulin Corrective High-Dose Regimen Condition: Fingerstick Blood Glucose Dose/Route: Insulin Units Condition: 141-180 mg/dl Dose/Route: 2 units/SQ Condition: 181-220 mg/dl Dose/Route: 4 units/SQ Condition: 221-260 mg/dl Dose/Route: 6 units/SQ Condition: 261-300 mg/dl Dose/Route: 8 units/SQ Condition: 301-350 mg/dl Dose/Route: 10 units/SQ Condition: 351-400 mg/dl Dose/Route: 12 units/SQ Condition: greater than 400 mg/dl Dose/Route: 14 units/SQ Coreg 3.125 mg tablet 3.125 mg PO BID Rx Instructions: must administer with a meal/food Discharge Orders: Discharge Order (Routine); Ordered 01/16/24 Ordered By: Omar Copeland Referrals: [facility] [Outside] Rowdy Sheldon DO [Primary Care Provider] - 01/13/24 11:40 am Garrick Duggan DPM [Physician] - 01/27/24 3:30 pm () Callie Claros MD [Hospitalist] - 1 month Discharge Diet: Cardiac Discharge Activity: Resume usual activity Patient Instructions: Levothyroxine (By mouth) (Levothroid, Levoxyl, Synthroid, Tirosint), Potassium Chloride (By mouth) (K-Dur, K-Gita, K-Tab, Daniel Mur), Ampicillin (By injection), Ceftriaxone (By injection) (Rocephin, Novaplus cefTRIAXone,..., Insulin Lispro (By injection) (Humalog, Humalog Pen, Lispro-PFC,..., Liothyronine (By mouth) (Cytomel), Heart Failure (DC), A-fib (Atrial Fibrillation) (DC), Endocarditis (DC), CHF Stoplight, Opioid Safety Activity Restrictions/Additional Instructions: Wound care orders from podiatry Dr. Duggan D.P.M. Once daily dressing change Betadine wet-to-dry to right transmetatarsal amputation site, 4 x 4's, Kerlix, cast padding, posterior splint and Benoit wrap without compression. Every other day dressing change with silver alginate, gauze and tape left foot Will follow-up on a weekly basis in podiatry clinic with Dr. Duggan for continued wound care. -Check weekly CBCs and CMP's -Lantus 5 units at bedtime -Please monitor your blood sugars closely -Monitor your blood sugars 3 times daily as after meals -Please record your blood sugars, and a blood sugar log -For your NovoLog -Please inject blood sugar after meals based on sliding scale provided -Do not inject insulin if you do not eat as hypoglycemia kills -This is a NovoLog sliding scale -Insulin sliding ?fingerstick? Insulin ?141-180?0 units/sq 181-220?2 units/sq ?221-260?4 units/sq ?261-300 6 units/sq ?301-350?8 units/sq ?351-400 10 units/sq ?401-450?12 units/sq >450? 14units/sq -If your blood sugar is greater than 500 go to the emergency room -If your blood sugar is less than 60 or at anytime you feel lightheaded or dizzy or diaphoretic or have chest palpitations check your blood sugar, and eat a hard candy or drink orange juice and go immediately to the emergency room -Remember hypoglycemia kills, so if his blood sugar is less than 60 we have to increase it by taking in a sugary meal such as a hard candy or orange juice and go to the emergency room -If you have any questions please call us where here to help -Please use Cytomel 5 mcg twice daily for only 3 days, levothyroxine 150 mcg once daily, recheck TSH, T3, T4 in 1 week -Monitor for fluid overload, Bumex 1 mg once daily with potassium replacement, Discharge Attestations Time Spent in Discharge Care*: greater than 30 min Status at Discharge: Cognitive status at discharge: mildly impaired cognition, Behavioral status at discharge: cooperative, Quality Metrics Clinical Quality Measures [ No reported AMI, CVA or VTE this stay] Coding Level of Care Code 57219 Total time (in minutes) for Discharge: 45 Diagnoses Non-pressure chronic ulcer of other part of left foot with fat layer exposed L97.522 Status post transmetatarsal amputation of right foot Z89.431 Peripheral arterial disease I73.9 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 mellitus E11.42 Bacteremia due to Enterococcus R78.81; B95.2 S/P aortic valve replacement with bioprosthetic valve Z95.3 Subacute bacterial endocarditis I33.0 Infective endocarditis organism: bacterial Chronicity: subacute Acute on chronic systolic congestive heart failure I50.23 Heart failure type: systolic Septicemia due to enterococcus A41.81 Lactic acidosis E87.20 Wounds, multiple T07.XXXA Type 2 diabetes mellitus with other circulatory complication, with long-term current use of insulin E11.59; Z79.4 Diabetes mellitus type: type 2 Diabetes mellitus skilled nursing insulin use: with skilled nursing use Diabetes mellitus complication status: with circulatory complication Diabetes mellitus complication detail: with other circulatory complications Benign prostatic hyperplasia, unspecified whether lower urinary tract symptoms present N40.0 Lower urinary tract symptom presence: unspecified whether lower urinary tract symptoms present Ventricular tachycardia, nonsustained I47.29 Intermittent atrial fibrillation I48.0
[2024-01-16 12:36] LABS: Blood Urea Nitrogen 28 mg/dL (8-23); Calcium 8.9 mg/dL (8.5-10.5); Carbon Dioxide 24 mmol/L (22-29); Chloride 102 mmol/L (98-107); Creatinine Clr Calc Pharmacy 40.7012; Glucose 170 mg/dL (65-115); Osmolality Calculated 295 mOsm/kg (285-295); Sodium 138 mmol/L (136-145)
[2024-01-16 12:42] LABS: Anion Gap 17.4 (5-19); Potassium 5.4 mmol/L (3.5-5.1)
--- NOTE | 2024-01-16 14:42 | PC.OT ---
OT TREATMENT HELD THIS DATE DUE TO SCHEDULED PATIENT D/C
[2024-01-16 15:25] VITALS: BP 135/48; PULSE 65; RESP 15; TEMP 36.7; O2SAT 93
== END 2024-01-16 15:15 | disposition skilled nursing facility (03) | DRG 871 ==
LOC: ER 22:46 → MEDSURG 23:47
PROVIDERS: Internal Medicine; Student in an Organized Health Care Education/Training Program; Admitting Provider Internal Medicine; Emergency Provider Emergency Medicine; PCP Electrodiagnostic Medicine; Visit Provider Family Medicine
DX: A41.81 Sepsis due to Enterococcus (principal); E03.5 Myxedema coma; I50.23 Acute on chronic systolic (congestive) heart failure; J96.91 Respiratory failure, unspecified with hypoxia; I33.0 Acute and subacute infective endocarditis; L97.422 Non-pressure chronic ulcer of left heel and midfoot with fat layer exposed; I13.0 Hypertensive heart and chronic kidney disease with heart failure and stage 1 through stage 4 chronic kidney disease, or unspecified chronic kidney disease; I42.9 Cardiomyopathy, unspecified; I47.20 Ventricular tachycardia, unspecified; N17.9 Acute kidney failure, unspecified; E87.20 Acidosis, unspecified; B95.62 Methicillin resistant Staphylococcus aureus infection as the cause of diseases classified elsewhere; E11.51 Type 2 diabetes mellitus with diabetic peripheral angiopathy without gangrene; E11.40 Type 2 diabetes mellitus with diabetic neuropathy, unspecified; E11.59 Type 2 diabetes mellitus with other circulatory complications; E11.621 Type 2 diabetes mellitus with foot ulcer; E11.22 Type 2 diabetes mellitus with diabetic chronic kidney disease; N18.9 Chronic kidney disease, unspecified; E78.5 Hyperlipidemia, unspecified; I48.0 Paroxysmal atrial fibrillation; E66.9 Obesity, unspecified; R31.0 Gross hematuria; I48.91 Unspecified atrial fibrillation; N40.0 Benign prostatic hyperplasia without lower urinary tract symptoms; I25.2 Old myocardial infarction; Z98.62 Peripheral vascular angioplasty status; Z11.52 Encounter for screening for COVID-19; Z68.32 Body mass index [BMI] 32.0-32.9, adult; Z89.422 Acquired absence of other left toe(s); Z89.411 Acquired absence of right great toe; Z89.421 Acquired absence of other right toe(s); Z95.3 Presence of xenogenic heart valve; Z79.4 Long term (current) use of insulin; Z79.02 Long term (current) use of antithrombotics/antiplatelets; Z85.828 Personal history of other malignant neoplasm of skin; Z87.891 Personal history of nicotine dependence; Z86.73 Personal history of transient ischemic attack (TIA), and cerebral infarction without residual deficits
CPT/HCPCS: 36415; 36416; 36573; 36592; 36600; 51702; 71045; 73620; 73630; 73718; 74176; 80048; 80053; 80076; 81003; 82652; 82728; 82803; 82805; 82962; 83605; 83735; 83880; 84100; 84145; 84439; 84443; 84481; 85025; 85610; 85651; 86140; 87040; 87077; 87150; 87186; 87205; 87426; 87486; 87581; 87633; 87641; 93005; 93312; 93320; 93325; 93971; 94640; 96372; 97110; 97161; 97165; 97530; 97535; 97760; G0378; J0290; J0696; J1644; J1815; J1940; J2543; J2704; J3480; J3490; L3260; P9046; P9047

== ENCOUNTER → 2024-01-27 15:18 | Outpatient (BNVA) | payer MEDICARE, SELFPAY | PROVIDERS: PCP Electrodiagnostic Medicine; Visit Provider Podiatrist Foot & Ankle Surgery | DX: Z98.890 Other specified postprocedural states (principal); L97.522 Non-pressure chronic ulcer of other part of left foot with fat layer exposed; Z89.431 Acquired absence of right foot; E11.42 Type 2 diabetes mellitus with diabetic polyneuropathy; E11.621 Type 2 diabetes mellitus with foot ulcer; Z89.432 Acquired absence of left foot; Z79.4 Long term (current) use of insulin | CPT/HCPCS: 99213 ==

== ENCOUNTER → 2024-02-04 10:16 | Outpatient (BNVA) | payer MEDICARE, SELFPAY | PROVIDERS: PCP Electrodiagnostic Medicine; Visit Provider Podiatrist Foot & Ankle Surgery | DX: Z98.890 Other specified postprocedural states (principal); E11.621 Type 2 diabetes mellitus with foot ulcer; L97.522 Non-pressure chronic ulcer of other part of left foot with fat layer exposed; Z89.431 Acquired absence of right foot; E11.42 Type 2 diabetes mellitus with diabetic polyneuropathy; Z79.4 Long term (current) use of insulin | CPT/HCPCS: 99213 ==

== ENCOUNTER 2024-02-06 14:39 | Emergency (ER) | payer MEDICARE, SELFPAY ==
[2024-02-06 14:49] VITALS: BP 160/41; PULSE 78; RESP 18; TEMP 36.8; O2SAT 98; BMI 30.1
--- NOTE | 2024-02-06 14:57 | ED_ITS ---
HPI - Abdominal Pain 2 General: Chief Complaint: Abdominal Pain Stated Complaint: lower abdomen edema Time Seen by Provider: 02/06/24 14:50 Source: patient and EMS Mode of arrival: EMS Limitations: no limitations History of Present Illness: 73-year-old male sent here from [facility] with edema around his abdomen testicles lower legs states that he has not been able to urinate all day with urinary retention. He has had a recent foot surgery with amputation metatarsal right foot due to osteomyelitis he has no complaints with that no fevers denies any vomiting or diarrhea he had some slight lower abdominal discomfort Associated Symptoms: Denies chills, diarrhea, fever(s), nausea and vomiting Review of Systems 2 Const: Denies: fever(s), chills, body aches or change in appetite ENMT: Denies: throat pain or dental pain Card: Denies: chest pain Resp: Denies: dyspnea GI: Reports: abdominal pain; Denies: nausea, vomiting or diarrhea : Reports: difficulty urinating Musc: Denies: neck pain or back pain Skin/Breast: Denies: rash Neuro: Denies: headache(s) PFSH ED 2 PFSH: Medical History Contrast-induced nephropathy Abscess PVD (peripheral vascular disease) Benign prostatic hyperplasia CKD (chronic kidney disease) Peripheral arterial disease Limb ischemia Dyslipidemia Osteomyelitis of foot Diabetic wet gangrene of the foot Diabetes EZEQUIEL (acute kidney injury) Non-pressure chronic ulcer of other part of left foot with fat layer exposed Cardiomyopathy Bradycardia Aortic valve disease 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 mellitus MSSA (methicillin susceptible Staphylococcus aureus) infection Gangrene Acute hypokalemia Osteomyelitis of toe of left foot History of nonmelanoma skin cancer Atrial fibrillation Paroxysmal Chronic anticoagulation Xarelto Hypertensive urgency NSTEMI (non-ST elevated myocardial infarction) Congestive heart failure Anticoagulation adequate with anticoagulant therapy Xarelto Varicose vein of leg Obesity HTN (hypertension) Diabetes TIA (transient ischemic attack) Surgical History S/P aortic valve replacement with bioprosthetic valve S/P cholecystectomy S/P cataract extraction S/P AVR (aortic valve replacement) Bioprosthetic, bovine Family History Father Diabetes Hypertension Grandfather Diabetes PATERNAL Hypertension PATERNAL Social History Smoking and tobacco/nicotine status: former use of tobacco/nicotine Alcohol intake: former Substance/Drug Use: never Marital status: / service: No Current occupational status: retired Current occupation: retired from [employer] Physical Exam 2 Const: COMMON NORMALS: no acute distress, patient oriented x3 and healthy appearing HENMT: COMMON NORMALS: normocephalic and atraumatic HEAD & SCALP: n ormocephalic and atraumatic Neck/C-Spine: COMMON NORMALS: full ROM and supple Chest: COMMONS NORMALS: normal inspection of the chest Resp: COMMON NORMALS: normal respiratory effort and clear to auscultation bilaterally AUSCULTATION: clear to auscultation bilaterally Cardio: COMMON NORMALS: regular rate, regular rhythm and No murmurs present (Cardio) RATE: regular rate RHYTHM: regular rhythm GI: COMMON NORMALS: Soft to palpation, non-tender and no masses PALPATION: Yes Soft to palpation OTHER: Slight lower abdominal distention Extremity: COMMON NORMALS: full ROM NARRATIVE EXTREMITY EXAM: Recent transmetatarsal amputation right foot wounds clean dry intact no signs of erythema does have bilateral 2+ edema Neuro: COMMON NORMALS: patient oriented x3, moves all extremities and no focal motor deficits Psych: COMMON NORMALS: mental status grossly normal, Normal thought process present and cooperative THOUGHT PROCESS: Normal thought process present Skin: COMMON NORMALS: no rashes or lesions noted and no wounds GENERAL SKIN EXAM: no rashes or lesions noted Course 2 Vital Signs: Vital signs: Vital Signs Temperature 98.2 F 02/06/24 14:49 Pulse Rate 75 02/06/24 16:22 Respiratory Rate 18 02/06/24 16:22 Blood Pressure 138/58 02/06/24 16:22 Pulse Oximetry 96 02/06/24 16:22 Oxygen Delivery Me thod Room Air 02/06/24 16:22 Oxygen Flow Rate 3 02/06/24 14:49 MDM - Abdominal Pain Medical Decision Making Patient presents here edema along with urinary retention he feels improved after Peoples placed did give him Lasix blood work here is otherwise negative wounds are well-appearing on his feet no signs of acute infection he is stable for discharge back to the [place] [facility] with Peoples in place Medical Records I reviewed the patient's medical records. Lab Data I reviewed the patient's lab results. 02/06/24 15:47 02/06/24 15:47 Labs/Radiology: Laboratory Results WBC 8.06 10^3/uL (3.29-11.43) 02/06/24 15:47 RBC 3.83 10^6/uL (3.85-5.65) L 02/06/24 15:47 Hgb 10.80 g/dL (11.27-16.99) L 02/06/24 15:47 Hct 37.3 % (37-53) 02/06/24 15:47 MCV 97.4 fl (82-101) 02/06/24 15:47 MCH 28.2 pg (27-33) 02/06/24 15:47 MCHC 29.0 g/dL (30-55) L 02/06/24 15:47 RDW 19.1 % (12.1-15.1) H 02/06/24 15:47 Plt Count 131 10^3/cmm (157-399) L 02/06/24 15:47 MPV 11.8 fL (7.4-10.4) H 02/06/24 15:47 Neut % (Auto) 82.9 % 02/06/24 15:47 Lymph % (Auto) 6.3 % 02/06/24 15:47 [place] % (Auto) 7.1 % 02/06/24 15:47 Eos % (Auto) 2.2 % 02/06/24 15:47 Baso % (Auto) 1.1 % 02/06/24 15:47 Neut # (Auto) 6.68 10^3/uL (1.8-7.7) 02/06/24 15:47 Lymph # (Auto) 0.5 10^3/uL (0.8-4.8) L 02/06/24 15:47 [place] # (Auto) 0.6 10^3/uL (0.2-0.9) 02/06/24 15:47 Eos # (Auto) 0.2 10^3/uL (0.0-0.8) 02/06/24 15:47 Baso # (Auto) 0.1 10^3/uL (0.0-0.1) 02/06/24 15:47 Nucleated RBC % (auto) 0 % 02/06/24 15:47 Nucleated RBCs # 0.0 /100WBC 02/06/24 15:47 Sodium 134 mmol/L (136-145) L 02/06/24 15:47 Potassium 4.2 mmol/L (3.5-5.1) 02/06/24 15:47 Chloride 101 mmol/L (98-107) 02/06/24 15:47 Carbon Dioxide 19 mmol/L (22-29) L 02/06/24 15:47 Anion Gap 18.2 (5-19) 02/06/24 15:47 BUN 55 mg/dL (8-23) H 02/06/24 15:47 Creatinine 2.0 mg/dL (0.7-1.2) H 02/06/24 15:47 GFR Calculation Not Reportable 02/06/24 15:47 Glucose 159 mg/dL (65-115) H 02/06/24 15:47 Calculated Osmolality 296 mOsm/kg (285-295) H 02/06/24 15:47 Calcium 8.9 mg/dL (8.5-10.5) 02/06/24 15:47 Total Bilirubin 0.6 mg/dL (0.15-1.2) 02/06/24 15:47 AST 30 U/L (0-40) 02/06/24 15:47 ALT 39 U/L (0-41) 02/06/24 15:47 Alkaline Phosphatase 183 U/L (40-130) H 02/06/24 15:47 NT-Pro-B Natriuret Pep 02004 pg/mL (0-125) H 02/06/24 15:47 Total Protein 6.7 g/dL (6.6-8.7) 02/06/24 15:47 Albumin 3.5 g/dL (3.5-5.2) 02/06/24 15:47 Globulin 3.2 g/dL (1.3-4.6) 02/06/24 15:47 Lipase 4 U/L (13-60) L 02/06/24 15:47 No radiology studies performed this visit Discharge Plan Discharge Patient Disposition: Home Clinical Impression: Bilateral lower extremity edema, Acute urinary retention Condition: Stable Prescriptions: No Action duloxetine [Cymbalta] 60 mg capsule,delayed release(DR/EC) 60 mg PO BEDTIME (DME) FreeStyle Marisela 14 Day Sensor Kit See Rx Instructions .ROUTE .MEDSUPPLY Qty: 1 Rx Instructions: As directed cholecalciferol (vitamin D3) 25 mcg (1,000 unit) capsule 25 mcg PO QAM sertraline 50 mg tablet 50 mg PO BEDTIME (DME) Diabetic shoes with 3 pair of inserts See Rx Instructions .Route .MEDSUPPLY Qty: 1 0RF Rx Instructions: As directed by HOME multivitamin Tablet 1 tab PO DAILY hydrocodone-acetaminophen 5-325 mg tablet 1 tab PO Q6H PRN (Reason: pain) Qty: 14 0RF tamsulosin [Flomax] 0.4 mg capsule 0.8 mg PO BEDTIME Qty: 14 0RF ferrous sulfate [Iron (ferrous sulfate)] 325 mg (65 mg iron) Tablet 325 mg PO DAILY clopidogrel 75 mg Tablet 75 mg PO DAILY Qty: 90 0RF aspirin 81 mg Tablet,Delayed Release (Dr/Ec) 81 mg PO DAILY Qty: 90 2RF potassium chloride 20 mEq/15 mL Liquid 40 meq PO DAILY 30 Days Qty: 1200 0RF ceftriaxone 2 gram recon soln 2 g IV Q12H 35 Days Qty: 50 0RF Rx Instructions: Stop date 02/20/2024 ampicillin sodium 2 gram recon soln 2 g IV Q6H 35 Days Qty: 50 0RF Rx Instructions: Stop date 02/20/2024 bisacodyl 10 mg Suppository 10 mg ME DAILY PRN (Reason: Constipation) Fleet Enema 19-7 gram/118 mL Enema 118 ml ME DAILY PRN (Reason: Constipation) Humalog KwikPen Insulin 100 unit/mL Insulin Pen See Rx Instructions .ROUTE .COMPLEX Rx Instructions: INJECT PER SLIDING SCALE 3 TIMES DAILY. BS 141-180= 0UNITS, 181-220= 2 UNITS, 221-260=4 UNITS, 261-300= 6 UNITS, 301-350= 8 UNITS, 351-400= 10 UNITS, 401-450= 12 UNITS. Vitamin B-12 1,000 mcg Tablet 1,000 mcg PO DAILY levothyroxine 75 mcg Tablet 150 mcg PO DAILY Milk of Magnesia 400 mg/5 mL Suspension 30 ml PO DAILY PRN (Reason: Constipation) Normal Saline Flush Syringe See Rx Instructions .ROUTE .COMPLEX Rx Instructions: 1USE 10CC INTRAVENOUSLY EVERY DAY AND NIGHT SHIF FOR PICC ABT TOTAL OF 12 FLUSHES A DAY BEFORE AND AFTER EACH MEDICATION. bumetanide 1 mg tablet 1 mg PO BID Lantus Solostar U-100 Insulin 100 unit/mL (3 mL) insulin pen 10 unit SUBCUT BEDTIME atorvastatin 20 mg tablet 20 mg PO DAILY Discharge Orders: Discharge ED (Routine); Ordered 02/06/24 Ordered By: Lyn Dial Referrals: Rowdy Sheldon DO [Primary Care Provider] - 1-3 days Discharge Diet: Advance as tolerated Discharge Activity: Resume usual activity Patient Instructions: Peoples Catheter Placement and Care (ED), Leg Edema (ED) Coding Level of Care Code ED Acquisition Lead for Era Hung
[2024-02-06 16:08] LABS: Basophils # 0.1 10^3/uL (0.0-0.1); Basophils % 1.1 %; Eosinophils # 0.2 10^3/uL (0.0-0.8); Eosinophils % 2.2 %; Hematocrit 37.3 % (37-53); Lymphocytes # 0.5 10^3/uL (0.8-4.8); Lymphocytes % 6.3 %; Mean Corpuscular Hemoglobin 28.2 pg (27-33); Mean Corpuscular Volume 97.4 fl (82-101); Mean Platelet Volume 11.8 fL (7.4-10.4); Monocytes # 0.6 10^3/uL (0.2-0.9); Monocytes % 7.1 %; Neutrophils # 6.68 10^3/uL (1.8-7.7); Neutrophils % 82.9 %; Nucleated Red Blood Cells % 0 %; Platelet Count 131 10^3/cmm (157-399); Red Blood Count 3.83 10^6/uL (3.85-5.65); Red Cell Distribution Width 19.1 % (12.1-15.1); White Blood Count 8.06 10^3/uL (3.29-11.43)
[2024-02-06 16:22] VITALS: BP 138/58; PULSE 75; RESP 18; O2SAT 96
[2024-02-06 16:38] LABS: Alanine Aminotransferase 39 U/L (0-41); Albumin Level 3.5 g/dL (3.5-5.2); Alkaline Phosphatase 183 U/L (40-130); Anion Gap 18.2 (5-19); Aspartate Amino Transferase 30 U/L (0-40); Blood Urea Nitrogen 55 mg/dL (8-23); Calcium 8.9 mg/dL (8.5-10.5); Carbon Dioxide 19 mmol/L (22-29); Chloride 101 mmol/L (98-107); Creatinine Clr Calc Pharmacy 37.5382; Globulin 3.2 g/dL (1.3-4.6); Glucose 159 mg/dL (65-115); Lipase 4 U/L (13-60); NT Pro B Type Natriuretic Pept 22489 pg/mL (0-125); Osmolality Calculated 296 mOsm/kg (285-295); Potassium 4.2 mmol/L (3.5-5.1); Sodium 134 mmol/L (136-145); Total Bilirubin 0.6 mg/dL (0.15-1.2); Total Protein 6.7 g/dL (6.6-8.7)
[2024-02-06] MEDS: FUROsemide 10 mg/mL SDV 10mL 80 MG IVP (16:59)
== END 2024-02-06 17:49 | disposition home or self-care (01) ==
PROVIDERS: Emergency Provider Emergency Medicine; PCP Electrodiagnostic Medicine
DX: R60.0 Localized edema (principal); R33.9 Retention of urine, unspecified; Z79.02 Long term (current) use of antithrombotics/antiplatelets; Z79.82 Long term (current) use of aspirin; Z79.4 Long term (current) use of insulin; Z87.891 Personal history of nicotine dependence; I13.0 Hypertensive heart and chronic kidney disease with heart failure and stage 1 through stage 4 chronic kidney disease, or unspecified chronic kidney disease; E11.22 Type 2 diabetes mellitus with diabetic chronic kidney disease; I43 Cardiomyopathy in diseases classified elsewhere; N18.9 Chronic kidney disease, unspecified; I50.9 Heart failure, unspecified; E78.5 Hyperlipidemia, unspecified; I25.2 Old myocardial infarction; Z86.73 Personal history of transient ischemic attack (TIA), and cerebral infarction without residual deficits
CPT/HCPCS: 36415; 51702; 80053; 83690; 83880; 85025; 96374; 99284; J1940

== ENCOUNTER 2024-02-09 07:56 | Inpatient (IN) | payer MEDICARE, SELFPAY ==
[2024-02-09] VITALS (13 sets, daily range): BP systolic 95–143; BP diastolic 53–95; PULSE 62–71; RESP 10–16; TEMP 36.3–36.4; O2SAT 90–100; BMI 35.9
--- NOTE | 2024-02-09 08:10 | XRR_ITS ---
PROCEDURE INFORMATION: Exam: XR Chest Exam date and time: 02/09/2024 8:37 AM Age: 73 years old Clinical indication: Dyspnea; Prior surgery; Surgery date: 6+ months; Surgery type: Open chest; Additional info: Dyspnea/cough TECHNIQUE: Imaging protocol: Radiologic exam of the chest. Views: 1 view. COMPARISON: CR XR chest 1V portable [id number] 07/10/2024 07:59 FINDINGS: Tubes, catheters and devices: The right upper extremity PICC is stable. Lungs: Stable pulmonary vascular congestion and mild pulmonary edema. New infiltrate versus atelectasis of the left lung base. Pleural spaces: Unremarkable. No pleural effusion. No pneumothorax. Heart/Mediastinum: Stable cardiomegaly. Bones/joints: Status post median sternotomy. XR/XR chest 1V portable [id number] IMPRESSION: 1. Stable CHF/pulmonary edema 2. New obscuration of the left hemidiaphragm concerning for new pulmonary infiltrates versus atelectasis
--- NOTE | 2024-02-09 08:16 | ED_ITS ---
HPI - Extremity Problem 2 General: Chief complaint: Extremity Problem,Nontraumatic Stated complaint: MICHELLE LOWER EXT SWELLING Time Seen by Provider: 02/09/24 08:09 Source: patient Mode of arrival: EMS History of Present Illness: 73-year-old male presents emergency room from group home. Patient states he has had increased swelling in his legs. He is normally on 3 to 4 L of oxygen he is not requiring 4. Will try to titrate up to little bit but he did desat to the mid upper 80s. He was seen earlier this week for urinary retention and a Peoples was placed. He has chronic kidney disease. Patient states that his Bumex was increased recently. MD Complaint: extremity swelling Location: lower extremity Quality: aching Relieving factors: nothing Exacerbating factors: nothing Associated symptoms: Deny chest pain, fever(s) or rash Review of Systems 2 Const: Denies: fever(s) or chills Card: Reports: edema and swelling of feet/ankles; Denies: chest pain Resp: Reports: dyspnea GI: Denies: abdominal pain : Denies: dysuria, urinary frequency or urinary urgency Musc: Denies: neck pain or back pain Skin/Breast: Denies: rash PFSH ED 2 PFSH: Medical History Contrast-induced nephropathy Abscess PVD (peripheral vascular disease) Benign prostatic hyperplasia CKD (chronic kidney disease) Peripheral arterial disease Limb ischemia Dyslipidemia Osteomyelitis of foot Diabetic wet gangrene of the foot Diabetes EZEQUIEL (acute kidney injury) Non-pressure chronic ulcer of other part of left foot with fat layer exposed Cardiomyopathy Bradycardia Aortic valve disease 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 mellitus MSSA (methicillin susceptible Staphylococcus aureus) infection Gangrene Acute hypokalemia Osteomyelitis of toe of left foot History of nonmelanoma skin cancer Atrial fibrillation Paroxysmal Chronic anticoagulation Xarelto Hypertensive urgency NSTEMI (non-ST elevated myocardial infarction) Congestive heart failure Anticoagulation adequate with anticoagulant therapy Xarelto Varicose vein of leg Obesity HTN (hypertension) Diabetes TIA (transient ischemic attack) Surgical History S/P aortic valve replacement with bioprosthetic valve S/P cholecystectomy S/P cataract extraction S/P AVR (aortic valve replacement) Bioprosthetic, bovine Family History Father Diabetes Hypertension Grandfather Diabetes PATERNAL Hypertension PATERNAL Social History Smoking and tobacco/nicotine status: former use of tobacco/nicotine Alcohol intake: former Substance/Drug Use: never Marital status: / service: No Current occupational status: retired Current occupation: retired from [employer] Physical Exam 2 Const: GENERAL APPEARANCE: cooperative ORIENTATION/CONSCIOUSNESS: Yes awake HENMT: COMMON NORMALS: normocephalic and atraumatic HEAD & SCALP: n ormocephalic and atraumatic Resp: COMMON NORMALS: normal respiratory effort, No retractions and No use of accessory muscles AUSCULTATION: crackles Cardio: COMMON NORMALS: regular rate, regular rhythm and No murmurs present (Cardio) RATE: regular rate RHYTHM: regular rhythm GI: COMMON NORMALS: Soft to palpation and No hepatosplenomegaly present A USCULTATION: Yes normoactive bowel sounds PALPATION: Yes Soft to palpation, No Tenderness to palpation present (GI), No Guarding due to palpation present (GI) and Yes No hepatosplenomegaly present Extremity: COMMON NORMALS: normal to inspection, capillary refill normal and no calf tenderness GENERAL: Yes edema (2+ lower extremities to the level of the pelvis) Skin: COMMON NORMALS: no rashes or lesions noted GENERAL SKIN EXAM: no rashes or lesions noted Course 2 Vital Signs: Vital signs: Vital Signs Temperature 97.5 F L 02/09/24 07:58 Pulse Rate 70 02/09/24 08:50 Blood Pressure 135/60 02/09/24 08:50 Pulse Oximetry 95 02/09/24 08:50 Oxygen Delivery Me thod Nasal Cannula 02/09/24 08:50 Oxygen Flow Rate 4 02/09/24 07:58 MDM - Extremity (Nontraumatic) Medical Decision Making Patient fluid overloaded with mild acute kidney injury. Has had urinary retention he has some hematuria suspected may be from the catheter UA was not done at the time of his previous ER visit. Will get a CT renal stone protocol. Lasix given IV. Will admit discussed with hospitalist orders written Medical Records I reviewed the patient's medical records. Lab Data I reviewed the patient's lab results. 02/09/24 08:36 02/09/24 08:36 Radiology Impressions Chest X-Ray 02/09/24 08:10 IMPRESSION: 1. Stable CHF/pulmonary edema 2. New obscuration of the left hemidiaphragm concerning for new pulmonary infiltrates versus atelectasis Laboratory Results WBC 10.59 10^3/uL (3.29-11.43) 02/09/24 08:36 RBC 3.84 10^6/uL (3.85-5.65) L 02/09/24 08:36 Hgb 10.90 g/dL (11.27-16.99) L 02/09/24 08:36 Hct 37.4 % (37-53) 02/09/24 08:36 MCV 97.4 fl (82-101) 02/09/24 08:36 MCH 28.4 pg (27-33) 02/09/24 08:36 MCHC 29.1 g/dL (30-55) L 02/09/24 08:36 RDW 20.0 % (12.1-15.1) H 02/09/24 08:36 Plt Count 116 10^3/cmm (157-399) L 02/09/24 08:36 MPV 12.5 fL (7.4-10.4) H 02/09/24 08:36 Neut % (Auto) 89.0 % 02/09/24 08:36 Lymph % (Auto) 3.8 % 02/09/24 08:36 [place] % (Auto) 5.9 % 02/09/24 08:36 Eos % (Auto) 0.3 % 02/09/24 08:36 Baso % (Auto) 0.6 % 02/09/24 08:36 Neut # (Auto) 9.44 10^3/uL (1.8-7.7) H 02/09/24 08:36 Lymph # (Auto) 0.4 10^3/uL (0.8-4.8) L 02/09/24 08:36 [place] # (Auto) 0.6 10^3/uL (0.2-0.9) 02/09/24 08:36 Eos # (Auto) 0.0 10^3/uL (0.0-0.8) 02/09/24 08:36 Baso # (Auto) 0.1 10^3/uL (0.0-0.1) 02/09/24 08:36 Nucleated RBC % (auto) 0 % 02/09/24 08:36 Nucleated RBCs # 0.0 /100WBC 02/09/24 08:36 Sodium 138 mmol/L (136-145) 02/09/24 08:36 Potassium 5.0 mmol/L (3.5-5.1) 02/09/24 08:36 Chloride 102 mmol/L (98-107) 02/09/24 08:36 Carbon Dioxide 18 mmol/L (22-29) L 02/09/24 08:36 Anion Gap 23.0 (5-19) H 02/09/24 08:36 BUN 69 mg/dL (8-23) H 02/09/24 08:36 Creatinine 2.5 mg/dL (0.7-1.2) H 02/09/24 08:36 GFR Calculation Not Reportable 02/09/24 08:36 Glucose 117 mg/dL (65-115) H 02/09/24 08:36 Calculated Osmolality 307 mOsm/kg (285-295) H 02/09/24 08:36 Calcium 9.1 mg/dL (8.5-10.5) 02/09/24 08:36 Total Bilirubin 1.0 mg/dL (0.15-1.2) 02/09/24 08:36 AST 155 U/L (0-40) H 02/09/24 08:36 ALT 95 U/L (0-41) H 02/09/24 08:36 Alkaline Phosphatase 217 U/L (40-130) H 02/09/24 08:36 NT-Pro-B Natriuret Pep 40465 pg/mL (0-125) H 02/09/24 08:36 Total Protein 6.6 g/dL (6.6-8.7) 02/09/24 08:36 Albumin 3.6 g/dL (3.5-5.2) 02/09/24 08:36 Globulin 3.0 g/dL (1.3-4.6) 02/09/24 08:36 Urine Color Yellow (Yellow) 02/09/24 10:15 Urine Appearance Sl hazy (CLEAR) A 02/09/24 10:15 Urine pH 5 (5-7) 02/09/24 10:15 Ur Specific [place] 1.020 (1.005-1.030) 02/09/24 10:15 Urine Protein 1+ (Negative) H 02/09/24 10:15 Urine Glucose (UA) Norm (Normal) 02/09/24 10:15 Urine Ketones 1+ (Negative) H 02/09/24 10:15 Urine Blood 3+ (Negative) H 02/09/24 10:15 Urine Nitrate Negative (Negative) 02/09/24 10:15 Urine Bilirubin Neg (Negative) 02/09/24 10:15 Urine Urobilinogen Norm mg/dL (Negative) 02/09/24 10:15 Ur Leukocyte Esterase 1+ (Negative) H 02/09/24 10:15 Urine RBC 25-40 /hpf (0-2) H 02/09/24 10:15 Urine WBC 5-10 /hpf (0-5) H 02/09/24 10:15 Ur Squamous Epith Cells 0-4 /hpf (0-5) H 02/09/24 10:15 Amorphous Sediment Not Reportable 02/09/24 10:15 Urine Bacteria 1+ /hpf (NONE) H 02/09/24 10:15 Urine Mucus Trace /hpf 02/09/24 10:15 All radiology interpretation(s) finalized by discharge Discharge Plan Discharge Patient Disposition: Admitted As Inpatient Clinical Impression: Congestive heart failure, Acute kidney injury, Chronic anemia Condition: Stable Prescriptions: No Action duloxetine [Cymbalta] 60 mg capsule,delayed release(DR/EC) 60 mg PO BEDTIME (DME) FreeStyle Marisela 14 Day Sensor Kit See Rx Instructions .ROUTE .MEDSUPPLY Qty: 1 Rx Instructions: As directed cholecalciferol (vitamin D3) 25 mcg (1,000 unit) capsule 25 mcg PO QAM sertraline 50 mg tablet 50 mg PO BEDTIME (DME) Diabetic shoes with 3 pair of inserts See Rx Instructions .Route .MEDSUPPLY Qty: 1 0RF Rx Instructions: As directed by HOME multivitamin Tablet 1 tab PO DAILY hydrocodone-acetaminophen 5-325 mg tablet 1 tab PO Q6H PRN (Reason: pain) Qty: 14 0RF tamsulosin [Flomax] 0.4 mg capsule 0.8 mg PO BEDTIME Qty: 14 0RF ferrous sulfate [Iron (ferrous sulfate)] 325 mg (65 mg iron) Tablet 325 mg PO DAILY clopidogrel 75 mg Tablet 75 mg PO DAILY Qty: 90 0RF aspirin 81 mg Tablet,Delayed Release (Dr/Ec) 81 mg PO DAILY Qty: 90 2RF potassium chloride 20 mEq/15 mL Liquid 40 meq PO DAILY 30 Days Qty: 1200 0RF ceftriaxone 2 gram recon soln 2 g IV Q12H 35 Days Qty: 50 0RF Rx Instructions: Stop date 02/20/2024 ampicillin sodium 2 gram recon soln 2 g IV Q6H 35 Days Qty: 50 0RF Rx Instructions: Stop date 02/20/2024 bisacodyl 10 mg Suppository 10 mg AL DAILY PRN (Reason: Constipation) Fleet Enema 19-7 gram/118 mL Enema 118 ml AL DAILY PRN (Reason: Constipation) Humalog KwikPen Insulin 100 unit/mL Insulin Pen See Rx Instructions .ROUTE .COMPLEX Rx Instructions: INJECT PER SLIDING SCALE 3 TIMES DAILY. BS 141-180= 0UNITS, 181-220= 2 UNITS, 221-260=4 UNITS, 261-300= 6 UNITS, 301-350= 8 UNITS, 351-400= 10 UNITS, 401-450= 12 UNITS. Vitamin B-12 1,000 mcg Tablet 1,000 mcg PO DAILY levothyroxine 75 mcg Tablet 150 mcg PO DAILY Milk of Magnesia 400 mg/5 mL Suspension 30 ml PO DAILY PRN (Reason: Constipation) Normal Saline Flush Syringe See Rx Instructions .ROUTE .COMPLEX Rx Instructions: 1USE 10CC INTRAVENOUSLY EVERY DAY AND NIGHT SHIF FOR PICC ABT TOTAL OF 12 FLUSHES A DAY BEFORE AND AFTER EACH MEDICATION. bumetanide 1 mg tablet 1 mg PO BID Lantus Solostar U-100 Insulin 100 unit/mL (3 mL) insulin pen 10 unit SUBCUT BEDTIME atorvastatin 20 mg tablet 20 mg PO DAILY Referrals: Rowdy Sheldon DO [Primary Care Provider] - Patient Instructions: Opioid Safety, Pain Management Coding Level of Care Code ED Aluminum Hydroxide Process Operator for Era Hung
[2024-02-09 08:42] LABS: Basophils # 0.1 10^3/uL (0.0-0.1); Basophils % 0.6 %; Eosinophils % 0.3 %; Hematocrit 37.4 % (37-53); Lymphocytes # 0.4 10^3/uL (0.8-4.8); Lymphocytes % 3.8 %; Mean Corpuscular HGB Conc 29.1 g/dL (30-55); Mean Corpuscular Hemoglobin 28.4 pg (27-33); Mean Corpuscular Volume 97.4 fl (82-101); Mean Platelet Volume 12.5 fL (7.4-10.4); Monocytes # 0.6 10^3/uL (0.2-0.9); Monocytes % 5.9 %; Neutrophils # 9.44 10^3/uL (1.8-7.7); Nucleated Red Blood Cells % 0 %; Platelet Count 116 10^3/cmm (157-399); Red Blood Count 3.84 10^6/uL (3.85-5.65); White Blood Count 10.59 10^3/uL (3.29-11.43)
[2024-02-09 09:13] LABS: Alanine Aminotransferase 95 U/L (0-41); Albumin Level 3.6 g/dL (3.5-5.2); Alkaline Phosphatase 217 U/L (40-130); Aspartate Amino Transferase 155 U/L (0-40); Blood Urea Nitrogen 69 mg/dL (8-23); Calcium 9.1 mg/dL (8.5-10.5); Carbon Dioxide 18 mmol/L (22-29); Chloride 102 mmol/L (98-107); Glucose 117 mg/dL (65-115); NT Pro B Type Natriuretic Pept 32140 pg/mL (0-125); Osmolality Calculated 307 mOsm/kg (285-295); Sodium 138 mmol/L (136-145); Total Protein 6.6 g/dL (6.6-8.7)
[2024-02-09 11:01] LABS: Add Urine Microscopic? YES; Bilirubin Urine Neg (Negative); Blood Urine 3+ (Negative); Glucose Urine UA Norm (Normal); Ketones Urine 1+ (Negative); Leukocyte Esterase Urine 1+ (Negative); Nitrate Urine Negative (Negative); Protein Urine 1+ (Negative); RBC Urine 25-40 /hpf (0-2); Squamous Epithelial Cell Urine 0-4 /hpf (0-5); Urine Appearance SL Hazy (CLEAR); Urine Color Yellow (Yellow); Urobilinogen Urine Norm (Negative); pH Urine 5 (5-7)
[2024-02-09 11:02] LABS: Add Urine Culture? Yes; Bacteria Urine 1+ /hpf; Mucus Urine TRACE /hpf
--- NOTE | 2024-02-09 11:03 | CTR_ITS ---
PROCEDURE INFORMATION: Exam: CT Abdomen And Pelvis Without Contrast Exam date and time: 02/09/2024 11:15 AM Age: 73 years old Clinical indication: Abdominal pain; Generalized; Additional info: Flank pain TECHNIQUE: Imaging protocol: Computed tomography of the abdomen and pelvis without contrast. Radiation optimization: All CT scans at this facility use at least one of these dose optimization techniques: automated exposure control; mA and/or kV adjustment per patient size (includes targeted exams where dose is matched to clinical indication); or iterative reconstruction. COMPARISON: CT abdomen pelvis wo con [id number] 02/08/2024 14:29 RADIATION DOSE METRICS: Total DLP (mGy-cm): 1102.9 FINDINGS: Lungs: Compressive atelectasis at the lung bases. Pleural spaces: Enlarging bilateral pleural effusions which are now [id number] in size, hreao-wfttzli-chjp-left. Heart: Mild cardiomegaly. Liver: Subtle nodularity of the liver capsule concerning for hepatic cirrhosis. Gallbladder and bile ducts: Cholecystectomy Pancreas: Stable calcifications throughout the pancreas suggesting the sequelae of chronic pancreatitis. Spleen: Normal. No splenomegaly. Adrenal glands: Normal. No mass. Kidneys and ureters: Normal. No hydronephrosis. Stomach and bowel: Unremarkable. No obstruction. No mucosal thickening. Persistent constipation, slightly improved at the level of the rectum Appendix: No evidence of appendicitis. Intraperitoneal space: Small volume ascites, increased when compared to the prior study. No intra-abdominal free air Vasculature: Unremarkable. No abdominal aortic aneurysm. Lymph nodes: Unremarkable. No enlarged lymph nodes. Urinary bladder: The urinary bladder is decompressed with a Peoples catheter. Reproductive: Stable prostate. Bones/joints: No acute osseous lesions Soft tissues: Significant worsening of the body wall edema/anasarca CT/CT kidney stone [id number] IMPRESSION: 1. Increasing pleural effusions, ascites and anasarca. The anasarca has significantly worsened over the interval since the prior study 2. Stable chronic pancreatic calcifications 3. Stable cardiomegaly 4. Persistent constipation, slightly improved at the level of the rectum 5. Subtle nodularity of the liver surface suggesting cirrhosis
--- NOTE | 2024-02-09 12:22 | PC.PHAR ---
PT IS FROM [facility] [phone] NURSE FROM [facility] STATES THE PT DIDNT TAKE ANY MEDICATIONS TODAY-STATES THE PTS FLOMAX IS 0.4MG HS MAR AND TAR THAT WAS SENT WAS CUT OFF
[2024-02-09] MEDS: FUROsemide 10 mg/mL SDV 10mL 80 MG IVP ×2 (12:45→16:34)
--- NOTE | 2024-02-09 15:01 | PC.NURSE ---
PATIENT HAS NUMEROUS WOUNDS NOTED: LEFT FOOT HEEL FORMING ULCER LEFT MIDDLE BOTTOM FOOT LEFT FOOT LEFT SIDE RIGHT ARM ABRASIONS NEAR ELBOW (WEEPING) RIGHT FOOT RIGHT SIDE RIGHT ARM ABRASIONS SACRUM STAGE 1 PRESSURE ULCER
--- NOTE | 2024-02-09 15:15 | P.HP_ITS ---
Providers/Chief Complaint 2 Admitting Physician: Carlton Simpson MD Primary Care Provider: Rowdy Sheldon DO Chief Complaint: MICHELLE LOWER EXT SWELLING History of Present Illness Surendra Roland is a 73 year old male with past medical history of peripheral vascular disease, type 2 diabetes mellitus, CKD with baseline creatinine of 1.6- 2.1, bioprosthetic aortic valve, congestive systolic heart failure with EF of 45 to 50%, recent bacteremia with Enterococcus faecalis due to gangrene of the right foot and osteomyelitis post right foot TMA, recent angioplasty of the right foot currently on IV ampicillin and Rocephin to finish on 02/19 was sent into the ER today from the residential with concerns for increasing swelling in his lower limb for last 1 week more so for last few days, confusion on and off for last 1 week as well. As the history from the nursing staff at the residential he has not had any nausea vomiting, diarrhea or dizziness. He has not complained of any chest pain. On examination patient is laying comfortably in bed, awake and alert and able to have complete conversation. He is slow to respond but he is awake and alert x 3. He denies of having any chest pain complains of mild difficulty in breathing especially on taking a deep breath, complains of swelling in his legs. Denies any nausea, vomiting, diarrhea. States his appetite has been poor and he does not feel interested in food these days but is thirsty as of now. States he has been feeling weak Review of Systems 2 General: Reports: 10 or more systems reviewed and unremarkable except in HPI and below Const: Denies: fever(s), chills, body aches, change in appetite, change in weight, malaise, night sweats, diaphoresis, change in sleep pattern, daytime sleepiness or snoring Eyes: Denies: change in vision, blurry vision, photophobia, eye discomfort or eye discharge ENMT: Denies: throat pain, enlarged tonsils, hoarseness, mouth pain, oral sores, dry mouth, tinnitus, nasal congestion or post nasal drip Card: Denies: chest pain, palpitations, irregular heart rhythm, edema, swelling of feet/ankles, lightheadedness, syncope, pre-syncope, dyspnea on exertion, orthopnea, leg pain with exertion or acrocyanosis Resp: Denies: dyspnea, productive cough, non-productive cough, wheezing, stridor, pain on inspiration, change in phlegm color, hemoptysis or chest congestion GI: Denies: abdominal pain, nausea, vomiting, hematemesis, coffee ground emesis, dysphagia, heartburn, diarrhea, constipation, bloating, GI cramping, change in bowel habits, pain on defecation, hematochezia or melena : Denies: flank pain, difficulty urinating, dysuria, urinary frequency, urinary urgency, urinary hesitancy, urinary dribbling, difficulty starting urination, change in urine stream, nocturia or hematuria Musc: Denies: neck pain, back pain, extremity pain, joint pain, joint swelling, joint redness, joint stiffness or limited range of motion Neuro: Denies: headache(s), numbness in extremities, weakness in extremities, sensory changes, lack of coordination, difficulty walking, frequent falls, dizziness, vertigo, confusion, Slurred speech present, difficulty communicating thoughts or seizure-like activity Psych: Denies: anxiety, depression, mood swings, panic attacks, hopelessness or irritability Endo: Denies: polyuria, polydipsia, tired all the time, cold intolerance, excessive sweating, flushing or heat intolerance Lit/Lymph: Denies: easy bruising or easy bleeding All/Imm: Denies: tongue swelling, facial swelling or acute wheezing Medications/Allergies Home Medications Medication Instructions Recorded Confirmed Last Taken Type duloxetine 60 mg capsule,delayed 60 mg PO BEDTIME 02/22/20 02/09/24 12/03/23 History release (Cymbalta) multivitamin 1 tab PO DAILY 05/06/21 02/09/24 11/05/23 History cholecalciferol (vitamin D3) 25 25 mcg PO QAM 08/01/21 02/09/24 12/03/23 History mcg (1,000 unit) capsule flash glucose sensor (FreeStyle #1 ea 05/01/22 02/09/24 10/11/22 History Marisela 14 Day Sensor kit) sertraline 50 mg tablet 50 mg PO BEDTIME 11/14/22 02/09/24 12/03/23 History Diabetic shoes with 3 pair of #1 ea 11/28/22 02/09/24 Unknown Rx inserts ferrous sulfate 325 mg (65 mg 325 mg PO DAILY 11/06/23 02/09/24 Unknown History iron) tablet (Iron (ferrous sulfate)) aspirin 81 mg tablet,delayed 81 mg PO DAILY #90 tabs 11/07/23 02/09/24 12/03/23 Rx release clopidogrel 75 mg tablet 75 mg PO DAILY #90 tabs 11/07/23 02/09/24 12/03/23 Rx hydrocodone 5 mg-acetaminophen 325 1 tab PO Q6H PRN pain #14 tabs 12/02/23 02/09/24 Unknown Rx mg tablet ampicillin sodium 2 gram solution 2 g IV Q6H 5 weeks #50 ea 01/16/24 02/09/24 Unknown Rx for injection ceftriaxone 2 gram solution for 2 g IV Q12H 5 weeks #50 ea 01/16/24 02/09/24 Unknown Rx injection potassium chloride 20 mEq/15 mL 40 meq (30 mL) PO DAILY 30 days 01/16/24 02/09/24 Unknown Rx oral liquid #1,200 mL atorvastatin 20 mg tablet 20 mg PO DAILY 02/06/24 02/09/24 Unknown History bisacodyl 10 mg rectal suppository 10 mg NH DAILY PRN Constipation 02/06/24 02/09/24 Unknown History bumetanide 1 mg tablet 1 mg PO BID 02/06/24 02/09/24 Unknown History insulin glargine 100 unit/mL (3 10 unit SUBCUT BEDTIME 02/06/24 02/09/24 Unknown History mL) subcutaneous pen (Lantus Solostar U-100 Insulin) insulin lispro 100 unit/mL See Rx Instructions .Route .COMPLEX 02/06/24 02/09/24 Unknown History subcutaneous pen (Humalog KwikPen (U-100) Insulin) levothyroxine 75 mcg tablet 150 mcg PO DAILY 02/06/24 02/09/24 Unknown History magnesium hydroxide 400 mg/5 mL 30 ml PO DAILY PRN Constipation 02/06/24 02/09/24 Unknown History oral suspension (Milk of Magnesia) sodium chloride 0.9 % (flush) See Rx Instructions .Route .COMPLEX 02/06/24 02/09/24 Unknown History (Normal Saline Flush 0.9 % injection syringe) sodium phosphates 19 gram-7 118 ml NH DAILY PRN Constipation 02/06/24 02/09/24 Unknown History gram/118 mL enema (Fleet Enema) cyanocobalamin (vitamin B-12) 1,000 mcg PO DAILY 02/09/24 02/09/24 Unknown History 1,000 mcg tablet,extended release (Vitamin B-12 ER) tamsulosin 0.4 mg capsule (Flomax) 0.4 mg PO BEDTIME 02/09/24 02/09/24 Unknown History Allergies Allergy/AdvReac Type Severity Reaction Status Date / Time No Known Allergies Allergy Verified 02/09/24 08:06 PFSH Acute 2 PFSH: Medical History (Updated 02/09/24 @ 15:25 by Carlton Simpson MD) Severe hypothyroidism Atrial fibrillation Paroxysmal HTN (hypertension) Contrast-induced nephropathy Abscess PVD (peripheral vascular disease) Benign prostatic hyperplasia CKD (chronic kidney disease) Peripheral arterial disease Limb ischemia Dyslipidemia Osteomyelitis of foot Diabetic wet gangrene of the foot Diabetes EZEQUIEL (acute kidney injury) Non-pressure chronic ulcer of other part of left foot with fat layer exposed Cardiomyopathy Bradycardia Aortic valve disease 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 mellitus MSSA (methicillin susceptible Staphylococcus aureus) infection Gangrene Acute hypokalemia Osteomyelitis of toe of left foot History of nonmelanoma skin cancer Chronic anticoagulation Xarelto Hypertensive urgency NSTEMI (non-ST elevated myocardial infarction) Congestive heart failure Anticoagulation adequate with anticoagulant therapy Xarelto Varicose vein of leg Obesity Diabetes TIA (transient ischemic attack) Surgical History S/P aortic valve replacement with bioprosthetic valve S/P cholecystectomy S/P cataract extraction S/P AVR (aortic valve replacement) Bioprosthetic, bovine Family History Father Diabetes Hypertension Grandfather Diabetes PATERNAL Hypertension PATERNAL Social History Smoking and tobacco/nicotine status: former use of tobacco/nicotine Alcohol intake: former Substance/Drug Use: never Marital status: / service: No Current occupational status: retired Current occupation: retired from [employer] Vitals/I&O/Wt Last Vital Signs Temp 97.5 F L 02/09/24 07:58 Pulse 65 02/09/24 14:51 BP 142/53 02/09/24 14:51 Pulse Ox 98 02/09/24 14:51 O2 Del Method Nasal Cannula 02/09/24 12:13 O2 Flow Rate 4 02/09/24 07:58 Weight last 48 hrs Weight 113.398 kg Weight 136.078 kg Physical Exam 2 Narrative: General: No acute distress, AO x3, slow to respond, chronically sick appearing, tired appearing HEENT: PERRLA, pupils bilaterally equal and reactive Chest: Normal vesicular breath sounds, soft crackles present bilaterally in lower zone, equal good air entry bilaterally CVS: S1-S2 regular, soft pansystolic murmur present at apex, ejection systolic murmur present in aortic region, no tachycardia, no gallops, no rubs Abdomen: Soft, nontender, no organomegaly, bowel sounds present Neuro: No focal deficits, no facial deformity, AO x3, power 5/5 in all limbs Data 02/09/24 08:36 02/09/24 08:36 A&P Assessment and plan (1) Congestive heart failure: Last echocardiogram from May 2023 showed an EF of 45 to 50% with global LV hypokinesia, bioprosthetic aortic valve with mild to moderate aortic regurgitation. Supposed to be on Bumex 1 mg twice daily. Peoples in place. For now switch to IV IV Lasix 80 mg twice daily. Strict input output charting, daily weights. Fluid restriction up to 1500 cc. (2) Acute kidney injury superimposed on CKD: Baseline creatinine 1.8-2.1. Currently 2.6. Medical reconciliation done for nephrotoxic drugs. Monitor BMP daily. Electrolytes stable for now. (3) Infective endocarditis: Currently on IV ampicillin and ceftriaxone. Change dose of ampicillin as per creatinine clearance of 40. Changed to 2 mg every 8 hours along with ceftriaxone 2 g IV every 12. Last dose of antibiotics on 02/19. Repeat blood culture. Qualifiers: Chronicity: subacute Infective endocarditis organism: bacterial Qualified Code(s): I33.0 - Acute and subacute infective endocarditis (4) Altered mental status: Slight confusion and slow to respond most likely in setting of CKD and chronic illness. Cannot rule out in setting of severe thyroid abnormality. Recently was diagnosed of myxedema coma with elevated TSH. Frequent reorientation, fall precautions. Cannot rule out baseline dementia. Check respiratory viral panel. Patient already on IV antibiotics. Follow-up urine culture. (5) Severe hypothyroidism: Most recently TSH of more than 77. Was discharged on Cytomel for 3 days followed by increase levothyroxine. Repeat thyroid panel. For now continue with oral levothyroxine at home dose. Will repeat dose as per the repeat thyroid panel results. (6) HTN (hypertension): Goal blood pressure less than 140/90 mmHg. Monitor blood pressures. (7) Atrial fibrillation: Currently rate controlled in sinus rhythm. Monitor on telemetry. Qualifiers: Atrial fibrillation type: longstanding persistent Qualified Code(s): I 48.11 - Longstanding persistent atrial fibrillation (8) History of aortic valve replacement with bioprosthetic valve: Plan Peripheral vascular disease: Recent Angioplasty. Continue with aspirin, statin. Appreciate A1c, lipid panel. Type 2 diabetes mellitus: Recent A1c of 9.6. Continue with insulin sliding scale. Home dose of Lantus 10 units nightly. CODE STATUS: Discussed in detail with the patient. He is adamant he does not want to be resuscitated. He wanted to be made comfortable and denies any heroic measures. He wants to be DNR/DNI. Renal diabetic diet Heparin 5000 every 12 hourly for DVT prophylaxis Protonix for PUD prophylaxis Attestations 2 Medical Necessity Statement*: Admission for more than 2 midnights for management of acute kidney injury on CKD, congestive heart failure in a patient with recent history of severe hypothyroidism and infective endocarditis Diagnoses Congestive heart failure I50.9 Acute kidney injury superimposed on CKD N17.9; N18.9 Subacute bacterial endocarditis I33.0 Chronicity: subacute Infective endocarditis organism: bacterial Altered mental status R41.82 Severe hypothyroidism E03.9 HTN (hypertension) I10 Longstanding persistent atrial fibrillation I48.11 Atrial fibrillation type: longstanding persistent History of aortic valve replacement with bioprosthetic valve Z95.3
[2024-02-09 15:42] LABS: Free T4 Free Thyroxine 0.54 ng/dL (0.82-1.77); Procalcitonin 0.15 ng/mL (0-0.5); Thyroid Stimulating Hormone 55.01 uIU/mL (0.27-4.20)
[2024-02-09] MEDS: cefTRIAXone 2,000 MG in sodium chloride 0.9% (plus) 50 ML 100 MG IV (15:56)
[2024-02-09] MEDS: ampicillin 2,000 MG in sodium chloride 0.9% (plus) 50 ML 100 MG IV ×2 (16:31→23:33)
[2024-02-09] MEDS: heparin 5,000 unit/mL INJ 1 mL 5000 UNIT SUBCUT (16:34)
[2024-02-09 16:46] LABS: Erythrocyte Sedimentation Rate 5 mm/hr (0-10)
[2024-02-09 16:53] LABS: C Reactive Protein 19.4 mg/L (0.0-4.9)
[2024-02-09 16:55] LABS: Cortisol Random 25.24 ug/dL (2.47-19.5)
[2024-02-09 16:58] LABS: Glucose Point of Care 97 mg/dL (70-110)
[2024-02-09 20:52] LABS: Glucose Point of Care 132 mg/dL (70-110)
[2024-02-09] MEDS: tamsulosin 0.4 mg Capsule 0.400000000000000022 MG PO (21:12)
[2024-02-09] MEDS: duloxetine 60 mg Capsule PO (21:12)
[2024-02-09] MEDS: sertraline 50 mg Tablet PO (21:12)
[2024-02-09] MEDS: insulin glargine 100 units/1 mL 10 UNIT SUBCUT (21:15)
[2024-02-10] VITALS (13 sets, daily range): BP systolic 133–150; BP diastolic 59–86; PULSE 70–94; RESP 11–17; TEMP 35.7–36.2; O2SAT 90–97; BMI 35.6
[2024-02-10] MEDS: cefTRIAXone 2,000 MG in sodium chloride 0.9% (plus) 50 ML 100 MG IV ×2 (04:33→14:55)
[2024-02-10] MEDS: FUROsemide 10 mg/mL SDV 10mL 80 MG IVP ×2 (04:34→18:28)
[2024-02-10] MEDS: heparin 5,000 unit/mL INJ 1 mL 5000 UNIT SUBCUT ×2 (04:40→14:55)
[2024-02-10 05:10] LABS: Basophils % 0.4 %; Eosinophils # 0.1 10^3/uL (0.0-0.8); Eosinophils % 0.6 %; Hematocrit 36.3 % (37-53); Lymphocytes # 0.5 10^3/uL (0.8-4.8); Lymphocytes % 4.3 %; Mean Corpuscular HGB Conc 29.8 g/dL (30-55); Mean Corpuscular Hemoglobin 29.2 pg (27-33); Mean Corpuscular Volume 98.1 fl (82-101); Mean Platelet Volume 12.6 fL (7.4-10.4); Monocytes # 0.8 10^3/uL (0.2-0.9); Monocytes % 7.1 %; Neutrophils # 9.34 10^3/uL (1.8-7.7); Neutrophils % 87.2 %; Nucleated Red Blood Cells % 0 %; Platelet Count 98 10^3/cmm (157-399); Red Cell Distribution Width 20.4 % (12.1-15.1)
[2024-02-10 05:32] LABS: Cholesterol 91 mg/dL (0-200); HDL Cholesterol 35 mg/dL (60-100); LDL Cholesterol Calculated 43 mg/dL (50-129); LDL HDL Ratio 1.23 RATIO (0.00-3.22); Triglycerides 65 mg/dL (0-150)
[2024-02-10 05:34] LABS: Alanine Aminotransferase 134 U/L (0-41); Albumin Level 3.6 g/dL (3.5-5.2); Alkaline Phosphatase 216 U/L (40-130); Anion Gap 25.8 (5-19); Aspartate Amino Transferase 216 U/L (0-40); Blood Urea Nitrogen 76 mg/dL (8-23); Calcium 8.6 mg/dL (8.5-10.5); Carbon Dioxide 16 mmol/L (22-29); Chloride 103 mmol/L (98-107); Creatinine Clr Calc Pharmacy 28.1825; Globulin 2.8 g/dL (1.3-4.6); Glucose 92 mg/dL (65-115); Magnesium 2.5 mg/dL (1.7-2.3); Osmolality Calculated 312 mOsm/kg (285-295); Phosphorus 6.1 mg/dL (2.5-4.5); Potassium 4.8 mmol/L (3.5-5.1); Sodium 140 mmol/L (136-145); Total Bilirubin 1.1 mg/dL (0.15-1.2); Total Protein 6.4 g/dL (6.6-8.7)
[2024-02-10 06:31] LABS: Glucose Point of Care 90 mg/dL (70-110)
[2024-02-10 06:53] LABS: Adenovirus Not Detected (NOT DETECT); Chlamydia Pneumoniae Not Detected (NOT DETECT); Coronavirus 229E,HKU1,NL63,OC4 Not Detected (NOT DETECT); Human Metapneumovirus Not Detected (NOT DETECT); Human Rhinovirus/Enterovirus Not Detected (NOT DETECT); Influenza A Not Detected (NOT DETECT); Influenza A H1 Not Detected (NOT DETECT); Influenza A H1-2009 Not Detected (NOT DETECT); Influenza A H3 Not Detected (NOT DETECT); Influenza B Not Detected (NOT DETECT); Mycoplasma Pneumoniae Not Detected (NOT DETECT); Parainfluenza Virus Type 1 Not Detected (NOT DETECT); Parainfluenza Virus Type 2 Not Detected (NOT DETECT); Parainfluenza Virus Type 3 Not Detected (NOT DETECT); Parainfluenza Virus Type 4 Not Detected (NOT DETECT); Respiratory Syncytial Virus A Not Detected (NOT DETECT); Respiratory Syncytial Virus B Not Detected (NOT DETECT); SARS-COV-2 Not Detected (NOT DETECT)
[2024-02-10] MEDS: levothyroxine 100 mcg SDV IVP (08:34)
[2024-02-10] MEDS: pantoprazole 40 mg SDV IVP (08:34)
[2024-02-10] MEDS: clopidogrel 75 mg Tablet PO (08:35)
[2024-02-10] MEDS: ampicillin 2,000 MG in sodium chloride 0.9% (plus) 50 ML 100 MG IV ×2 (08:35→16:27)
[2024-02-10] MEDS: aspirin 81 mg EC Tablet PO (08:35)
[2024-02-10 10:30] LABS: Ammonia 28 umol/L (16-60)
[2024-02-10 10:43] LABS: Hepatitis A Antibody IgM Non-Reactive (Nonreactive); Hepatitis B Core IgM Non-Reactive (Nonreactive); Hepatitis B Surface Antigen Non-Reactive (Nonreactive); Hepatitis C Virus Antibody Non-Reactive (Nonreactive)
[2024-02-10] MEDS: glucagon 1 mg/mL KIT 1 mL IM (17:31)
[2024-02-10 17:36] LABS: Glucose Point of Care 49 mg/dL (70-110)
[2024-02-10 17:49] LABS: Glucose Point of Care 57 mg/dL (70-110)
[2024-02-10 18:14] LABS: Glucose Point of Care 54 mg/dL (70-110)
[2024-02-10] MEDS: duloxetine 60 mg Capsule PO (20:32)
[2024-02-10] MEDS: sertraline 50 mg Tablet PO (20:33)
[2024-02-10] MEDS: tamsulosin 0.4 mg Capsule 0.400000000000000022 MG PO (20:33)
[2024-02-10] MEDS: acetaminophen 325 mg Tablet 650 MG PO (20:43)
[2024-02-10 21:33] LABS: Glucose Point of Care 87 mg/dL (70-110)
[2024-02-11] VITALS (9 sets, daily range): BP systolic 118–154; BP diastolic 45–70; PULSE 66–75; RESP 12–22; TEMP 36.1–36.6; O2SAT 90–95; BMI 33.6
[2024-02-11] MEDS: ampicillin 2,000 MG in sodium chloride 0.9% (plus) 50 ML 100 MG IV ×2 (00:02→07:46)
--- NOTE | 2024-02-11 00:12 | PM.PN ---
Subjective Subjective: She is disoriented, pleasant, interacting, but with confusion. Denies pain or discomfort. Cannot tell me where he is. Vitals/I&O/Wt Last Vital Signs Temp 96.7 F L 02/10/24 20:48 Pulse 76 02/10/24 20:48 Resp 13 02/10/24 20:48 BP 141/66 02/10/24 20:48 Pulse Ox 90 02/10/24 20:48 O2 Del Method Nasal Cannula 02/10/24 20:48 O2 Flow Rate 3.5 02/10/24 20:48 02/10/24 02/10/24 02/11/24 14:59 22:59 06:59 Intake Total 50 / 50 100 / 150 Output Total 0 / 0 425 / 425 Balance 50 / 50 -325 / -275 Weight last 48 hrs Weight 112.491 kg Weight 112.491 kg Weight 113.398 kg Weight 113.398 kg Weight 136.078 kg Physical Exam Const: COMMON NORMALS: alert; negative for patient oriented x3 GENERAL APPEARANCE: cooperative ORIENTATION/CONSCIOUSNESS: Yes awake OTHER: Fumbling with telemetry wires which she has pulled off his chest. HENMT: COMMON NORMALS: oropharynx normal Neck/C-Spine: COMMON NORMALS: no JVD Resp: COMMON NORMALS: normal respiratory effort and clear to auscultation bilaterally AUSCULTATION: clear to auscultation bilaterally Cardio: COMMON NORMALS: no JVD, regular rhythm, S1 normal heart sound present, S2 normal heart sound present and No murmurs present (Cardio) RHYTHM: regular rhythm HEART SOUNDS: S1 normal heart sound present and S2 normal heart sound present GI: COMMON NORMALS: Normal to inspection, nondistended, normoactive bowel sounds present, Soft to palpation and non-tender PALPATION: Yes Soft to palpation Extremity: COMMON NORMALS: no joint enlargement NARRATIVE EXTREMITY EXAM: Prior right foot toe amputations. OTHER: Mild to moderate anasarca. Neuro: COMMON NORMALS: moves all extremities; negative for patient oriented x3 SENSORIUM/ORIENTATION: Yes alert Skin: COMMON NORMALS: no rashes or lesions noted GENERAL SKIN EXAM: no rashes or lesions noted Data 02/10/24 04:28 02/10/24 04:28 Micro: Microbiology 02/09/24 15:58 Blood Culture - Preliminary Blood NEGATIVE TO DATE 02/09/24 15:58 Blood Culture - Preliminary Blood NEGATIVE TO DATE 02/09/24 10:15 Urine Culture - Preliminary Urine,Clean Catch A&P Assessment and plan (1) Altered mental status: Acute encephalopathy, unclear cause, possible UTI. Question of possibly retaining urine today on assessment with bladder scan, however, with repositioning of Peoples, it is not draining, bladder scan still came back positive, but this may be secondary to anasarca/possibly ascites. Noted some nodularity of the liver. Requested ammonia level. Reviewed vitals, CBC, CMP, respiratory viral panel is negative. One-to-one sitter was not available today, nursing staff was staying close by patient who has been redirectable. Not trying to get up from bed. Maintain fall precautions. Reassess mental status. Additionally recently with myxedema, hypothyroidism, continues with IV levothyroxine. Discussed with case management coordinator. Frequent reorientation, fall precautions. Cannot rule out baseline dementia. Patient already on IV antibiotics. Follow-up urine culture. (2) Congestive heart failure: Reviewed vitals, CBC, CMP, magnesium level. Reviewed intake and output. Continue IV Lasix 80 mg twice daily. Reassess volume status, reassess electrolytes, at risk of electrolyte abnormality. Reassess renal function. Discussed with case management coordinator. Last echocardiogram from May 2023 showed an EF of 45 to 50% with global LV hypokinesia, bioprosthetic aortic valve with mild to moderate aortic regurgitation. Supposed to be on Bumex 1 mg twice daily. Peoples in place. For now switch to IV IV Lasix 80 mg twice daily. Strict input output charting, daily weights. Fluid restriction up to 1500 cc. (3) Acute kidney injury superimposed on CKD: Worsening renal function, creatinine up to 2.9 today. Possibly cardiorenal syndrome. Reviewed blood pressures, did have soft blood pressures last night. Doing better today, more hypertensive. Monitor for any hypotensive episodes. Reviewed albumin, 3.6. Baseline creatinine 1.8-2.1. Currently 2.6. Medical reconciliation done for nephrotoxic drugs. Monitor BMP daily. Electrolytes stable for now. (4) Infective endocarditis: Currently on IV ampicillin and ceftriaxone. Continue. Change dose of ampicillin as per creatinine clearance of 40. Changed to 2 mg every 8 hours along with ceftriaxone 2 g IV every 12. Last dose of antibiotics on 02/19. Repeat blood culture. Qualifiers: Infective endocarditis organism: bacterial Chronicity: subacute Qualified Code(s): I33.0 - Acute and subacute infective endocarditis (5) Severe hypothyroidism: Most recently TSH of more than 77. Was discharged on Cytomel for 3 days followed by increase levothyroxine. Repeat thyroid panel. For now continue with oral levothyroxine at home dose. Will repeat dose as per the repeat thyroid panel results. (6) HTN (hypertension): Goal blood pressure less than 140/90 mmHg. Monitor blood pressures. (7) Atrial fibrillation: Currently rate controlled in sinus rhythm. Monitor on telemetry. Qualifiers: Atrial fibrillation type: longstanding persistent Qualified Code(s): I48.11 - Longstanding persistent atrial fibrillation (8) History of aortic valve replacement with bioprosthetic valve: Plan Hypoglycemia: Episode of severe hypoglycemia. Discussed with nursing staff, reviewed Accu-Cheks. Blood glucose 49 today. Improved with dextrose. Hold insulin Lantus. Follow-up Accu-Cheks. Peripheral vascular disease: Recent Angioplasty. Continue with aspirin, statin. Appreciate A1c, lipid panel. Type 2 diabetes mellitus: Recent A1c of 9.6. Continue with insulin sliding scale. CODE STATUS: DNR/DNI. Renal diabetic diet Heparin 5000 every 12 hourly for DVT prophylaxis Protonix for PUD prophylaxis Attestations Medical Necessity Statement*: Continue admission for assessment management of acute encephalopathy, patient CHF exacerbation and gentleman with recent myxedema, severe hypothyroidism, infective endocarditis. and High MDM includes number and complexity of problems actively addressed during encounter and amount and/or complexity of data reviewed/ordered [ resulted lab(s)/test(s), ordered lab(s)/test(s), independent historian and other healthcare professional discussion] as documented Diagnoses Altered mental status R41.82 Congestive heart failure I50.9 Acute kidney injury superimposed on CKD N17.9; N18.9 Subacute bacterial endocarditis I33.0 Infective endocarditis organism: bacterial Chronicity: subacute Severe hypothyroidism E03.9 HTN (hypertension) I10 Longstanding persistent atrial fibrillation I48.11 Atrial fibrillation type: longstanding persistent History of aortic valve replacement with bioprosthetic valve Z95.3
[2024-02-11] MEDS: haloperidol inj 5 mg/mL INJ 1 mL 1 MG IM ×2 (02:23→08:13)
[2024-02-11] MEDS: cefTRIAXone 2,000 MG in sodium chloride 0.9% (plus) 50 ML 100 MG IV (02:32)
[2024-02-11] MEDS: morphine 4 mg/mL SDV 1 mL 2 MG IVP ×2 (03:00→08:45)
[2024-02-11] MEDS: FUROsemide 10 mg/mL SDV 10mL 80 MG IVP (03:38)
[2024-02-11 06:39] LABS: Glucose Point of Care 92 mg/dL (70-110)
[2024-02-11] MEDS: pantoprazole 40 mg SDV IVP (07:46)
[2024-02-11] MEDS: levothyroxine 100 mcg SDV IVP (07:46)
[2024-02-11 08:10] LABS: Basophils % 0.1 %; Eosinophils % 0.1 %; Hematocrit 35.8 % (37-53); Lymphocytes # 0.4 10^3/uL (0.8-4.8); Lymphocytes % 2.7 %; Mean Corpuscular HGB Conc 29.1 g/dL (30-55); Mean Corpuscular Volume 99.7 fl (82-101); Mean Platelet Volume 11.6 fL (7.4-10.4); Monocytes # 1.4 10^3/uL (0.2-0.9); Monocytes % 8.6 %; Neutrophils # 14.34 10^3/uL (1.8-7.7); Neutrophils % 87.9 %; Nucleated Red Blood Cells % 0.2 %; Platelet Count 63 10^3/cmm (157-399); Red Blood Count 3.59 10^6/uL (3.85-5.65); Red Cell Distribution Width 20.9 % (12.1-15.1); White Blood Count 16.31 10^3/uL (3.29-11.43)
[2024-02-11 08:23] LABS: Alanine Aminotransferase 278 U/L (0-41); Albumin Level 3.4 g/dL (3.5-5.2); Alkaline Phosphatase 246 U/L (40-130); Anion Gap 30.4 (5-19); Aspartate Amino Transferase 521 U/L (0-40); Calcium 8.5 mg/dL (8.5-10.5); Carbon Dioxide 11 mmol/L (22-29); Chloride 100 mmol/L (98-107); Creatinine Clr Calc Pharmacy 30.3285; Globulin 3.1 g/dL (1.3-4.6); Glucose 94 mg/dL (65-115); Osmolality Calculated 307 mOsm/kg (285-295); Potassium 5.4 mmol/L (3.5-5.1); Sodium 136 mmol/L (136-145); Total Bilirubin 1.2 mg/dL (0.15-1.2); Total Protein 6.5 g/dL (6.6-8.7)
[2024-02-11 08:33] LABS: Blood Urea Nitrogen 83 mg/dL (8-23)
--- NOTE | 2024-02-11 09:48 | USCV_ITS ---
Surendra Roland Age: 73 Gender: M : 1950 Exam Date: 02/11/2024 10:15 Ordering Phys: Alo De Los Santos MD Technologist: Exam Location: [facility] [place] Indication: ? veg BP: / HR: Rhythm: Sinus Technical Quality: Adequate MEASUREMENTS (Male / Female) Normal Values 2D ECHO LV Diastolic Diameter PLAX 6.1 cm 4.2 - 5.9 / 3.9 - 5.3 cm IVS Diastolic Thickness 1.2 cm 0.6 - 1.0 / 0.6 - 0.9 cm IVS Systolic Thickness 1.5 cm LVPW Diastolic Thickness 1.4 cm 0.6 - 1.0 / 0.6 - 0.9 cm LVPW Systolic Thickness 1.5 cm LVOT Diameter 2.0 cm LV Ejection Fraction 2D Teich 48.9 % LV Ejection Fraction MOD 2C 43.5 % LV Ejection Fraction 2C AL 44.6 % LA Diameter 5.0 cm RA Systolic Volume 4C AL 57.8 ml RA Systolic Volume 4C MOD 54.6 ml LA Sys Volume AL 107.3 cm cubed LA Sys Volume Index AL 35.7 cm cubed/m squared Aorta at Sinotubular Diameter 3.3 cm IVC Diameter 2.7 cm M-MODE LA Ao Ratio MM 1.6 AV Cusp Separation MM 1.8 cm FINDINGS Left Ventricle Diffuse hypokinesia of the left ventricle with an ejection fraction of 44%. Mildly dilated LV cavity. Right Ventricle Normal RV size with a slightly diminished ejection fraction Right Atrium Possibly of normal size Left Atrium Moderately increased left atrial size. Dilated left atrial appendage Mitral Valve Thickened mitral valve. Aortic Valve The bioprosthetic valve the aortic position appears to be well- seated. Thickened leaflets with echodensities, cannot rule out vegetation Tricuspid Valve No gross abnormalities noted Pulmonic Valve Not visualized Pericardium No pericardial effusion. Aorta Normal aortic annulus size. IVC Inferior vena cava not visualized. CONCLUSIONS The bioprosthetic valve the aortic position appears to be well- seated. Thickened leaflets with echodensities, cannot rule out vegetation. Thickened mitral valve. Diffuse hypokinesia of the left ventricle with an ejection fraction of 44%. Mildly dilated LV cavity. Moderately increased left atrial size. Dilated left atrial appendage No pericardial effusion. Consider repeat DAGMAR, if clinically indicated Dr Nelson Garcia MD FACC (Electronically Signed) Final Date: 11 Feb 2024 20:35 S
--- NOTE | 2024-02-11 09:49 | XRR_ITS ---
PROCEDURE INFORMATION: Exam: XR Chest Exam date and time: 02/11/2024 10:09 AM Age: 73 years old Clinical indication: Other: AMS; Additional info: Leukocytosis, AMS TECHNIQUE: Imaging protocol: Radiologic exam of the chest. Views: 1 view. COMPARISON: CR (CHEST, ) 02/09/2024 8:37 AM FINDINGS: Tubes, catheters and devices: Right-sided PICC remains in place. Lungs: Vascular and interstitial prominence persists but with an improved inspiratory effort when compared to the prior exam. Pleural spaces: Small right pleural effusion. Heart/Mediastinum: Stable cardiomegaly. Bones/joints: There are sternal sutures. No acute findings. XR/XR chest 1V portable 92200 IMPRESSION: 1. Vascular and interstitial prominence persists but with an improved inspiratory effort when compared to the prior exam. 2. Small right pleural effusion.
[2024-02-11] MEDS: albumin 25 G/100 ML BAG 60 G IV (10:04)
[2024-02-11] MEDS: FUROsemide 100 MG in sodium chloride 0.9% 40 ML 10 MG IV (10:04)
--- NOTE | 2024-02-11 10:26 | ECG_ITS ---
[facility] Test Date: 2024-02-11 Pat Name: Surendra Roland Department: Room: 104 Gender: Male Ship/Rec/Doc Control: : 1950 Requested By: Alo De Los Santos Order Number: [id number] Reading MD: Nelson Garcia M.D. Measurements Intervals [place] Rate: 72 P: 0 DC: 0 QRS: 51 QRSD: 100 T: 197 QT: 417 QTc: 459 Interpretive Statements ATRIAL FIBRILLATION ABNORMAL QRS-T ANGLE [QRS-T AXIS DIFFERENCE > 60] Compared to ECG 01/09/2024 14:27:35 Poor R-wave progression no longer present T-wave abnormality no longer present Possible ischemia no longer present Electronically Signed On 02-11-2024 22:49:06 CDT by Nelson Garcia M.D. [id number]
[2024-02-11 11:05] LABS: Troponin(5th) Baseline 194 ng/L (0-15)
--- NOTE | 2024-02-11 11:50 | ECG_ITS ---
[facility] Test Date: 2024-02-11 Pat Name: Surendra Roalnd Department: Room: 104 Gender: Male Online Journalist: : 1950 Requested By: Alo De Los Santos Order Number: [id number] Dennis MD: Nelson Garcia M.D. Measurements Intervals [place] Rate: 68 P: 0 IL: 0 QRS: 38 QRSD: 99 T: 160 QT: 451 QTc: 482 Interpretive Statements ATRIAL FIBRILLATION NONSPECIFIC T-WAVE ABNORMALITY PROLONGED QT INTERVAL Compared to ECG 02/11/2024 10:26:33 T-wave abnormality now present Prolonged QT interval now present Electronically Signed On 02-11-2024 23:05:05 CDT by Nelson Garcia M.D. [id number]
[2024-02-11 12:30] LABS: Glucose Point of Care 92 mg/dL (70-110)
[2024-02-11 13:31] LABS: Troponin 5 2HR 193.3 ng/L (0-15); Troponin 5 2HR Delta -0.7 ABS# (0-10)
--- NOTE | 2024-02-11 13:56 | P.PN_ITS ---
Subjective 2 Subjective: His condition has been worsening. Overnight again hypoglycemic despite holding insulin. With encephalopathy and delirium, more confused today. Not interacting. Making some confused statements. Intermittently raising his arms up in the air, pulling of his blanket. Vitals/I&O/Wt Last Vital Signs Temp 97.9 F 02/11/24 07:18 Pulse 75 02/11/24 12:00 Resp 22 H 02/11/24 12:00 BP 154/62 02/11/24 12:00 Pulse Ox 90 02/11/24 12:00 O2 Del Method Nasal Cannula 02/11/24 12:00 O2 Flow Rate 3 02/11/24 08:12 02/10/24 02/11/24 02/11/24 22:59 06:59 14:59 Intake Total 100 / 150 100 / 250 200 / 200 Output Total 425 / 425 100 / 525 Balance -325 / -275 0 / -275 200 / 200 Weight last 48 hrs Weight 112.491 kg Weight 112.491 kg Weight 112.491 kg Weight 113.398 kg Physical Exam 2 Const: COMMON NORMALS: alert; negative for patient oriented x3 GENERAL APPEARANCE: cooperative O RIENTATION/CONSCIOUSNESS: Yes confused; not awake HENMT: COMMON NORMALS: oropharynx normal Neck/C-Spine: COMMON NORMALS: no JVD Resp: COMMON NORMALS: normal respiratory effort and clear to auscultation bilaterally AUSCULTATION: clear to auscultation bilaterally Cardio: COMMON NORMALS: no JVD, regular rhythm, S1 normal heart sound present, S2 normal heart sound present and No murmurs present (Cardio) RHYTHM: regular rhythm HEART SOUNDS: S1 normal heart sound present and S2 normal heart sound present GI: COMMON NORMALS: Normal to inspection, nondistended, normoactive bowel sounds present, Soft to palpation and non-tender PALPATION: Yes Soft to palpation Extremity: COMMON NORMALS: no joint enlargement NARRATIVE EXTREMITY EXAM: Prior right foot toe amputations. OTHER: Mild to moderate anasarca. Neuro: COMMON NORMALS: moves all extremities; negative for patient oriented x3 SENSORIUM/ORIENTATION: Yes alert Skin: COMMON NORMALS: no rashes or lesions noted GENERAL SKIN EXAM: no rashes or lesions noted Data 02/11/24 07:59 02/11/24 07:59 Micro: Microbiology 02/09/24 10:15 Urine Culture - Final Urine,Clean Catch 02/09/24 15:58 Blood Culture - Preliminary Blood NEGATIVE TO DATE 02/09/24 15:58 Blood Culture - Preliminary Blood NEGATIVE TO DATE A&P Assessment and plan (1) Congestive heart failure: Reviewed vitals, intake and output, weight, CBC, CMP, chest x-ray, unfortunately with persistent diffuse anasarca, not responding to high-dose Lasix 80 mg twice daily, low urine output, worsening renal function. Decompensated congestive heart failure with multiorgan dysfunction and/or failure. Acute renal failure with worsening BUN, metabolic acidosis, hyperkalemia, anasarca. Additionally with worsening acute metabolic encephalopathy, one-to-one sitter had to be added, he is not cooperating with treatment, pulling of wires, lines. As well as worsening liver function, acute liver dysfunction with transaminitis, hypoglycemia. Discussed his overall condition with his family, [id number] Jasper Mata, discussed consideration of further options of assessment, management, goals of care. As per initial discussion with family and first would like to trial additional therapeutic management, we switched Lasix to Lasix drip, discussed with nephrology for consultation, added albumin, added midodrine, concern for cardiorenal versus hepatorenal failure, also with noted nodular morphology of the liver on imaging concern for liver fibrosis, possibly progression to cirrhosis. As discussed ammonia was checked and was normal. However, with progressively rising BUN. Discussed trial of above measures and with lack if response likely to require renal replacement therapy. Additionally requested assessment with troponin series, noted moderate elevation but with flat trend, no significant rise. He is not complaining of chest pain. Also noted having thrombocytopenia, some hematuria today, bladder scan was checked yesterday, initially returned positive, but not much urine output on adjustment of Peoples catheter, no clots, does have anasarca and ascites as per CT abdomen pelvis. Additionally on empiric antibiotics with ampicillin, ceftriaxone due to enterococcal endocarditis. Repeat blood cultures remaining negative. Did request kidney ultrasound today to follow-up. Family also took the time to visit with the patient. They additionally discussed abnormal cells regarding his nutrition, underlying comorbidities, and upon further discussion and consideration request to transition to comfort measures. Discussed with nephrology, case management associate and nursing. Discontinuing acute interventions. Comfort measures added including sublingual and IV morphine, Ativan, atropine. (2) Altered mental status: Unimproved, with progressive worsening. Acute encephalopathy, unclear cause, possible UTI. Question of possibly retaining urine today on assessment with bladder scan, however, with repositioning of Peoples, it is not draining, bladder scan still came back positive, but this may be secondary to anasarca/possibly ascites. Noted some nodularity of the liver. Requested ammonia level. Reviewed vitals, CBC, CMP, respiratory viral panel is negative. One-to-one sitter was not available today, nursing staff was staying close by patient who has been redirectable. Not trying to get up from bed. Maintain fall precautions. Reassess mental status. Additionally recently with myxedema, hypothyroidism, continues with IV levothyroxine. Discussed with case management associate. Frequent reorientation, fall precautions. Cannot rule out baseline dementia. Patient already on IV antibiotics. Follow-up urine culture. (3) Acute kidney injury superimposed on CKD: Acute renal failure as above. Worsening renal function, creatinine up to 2.9 today. Possibly cardiorenal syndrome. Reviewed blood pressures, did have soft blood pressures last night. Doing better today, more hypertensive. Monitor for any hypotensive episodes. Reviewed albumin, 3.6. Baseline creatinine 1.8-2.1. Currently 2.6. Medical reconciliation done for nephrotoxic drugs. Monitor BMP daily. Electrolytes stable for now. (4) Infective endocarditis: Was on IV ampicillin and ceftriaxone. Change dose of ampicillin as per creatinine clearance of 40. Changed to 2 mg every 8 hours along with ceftriaxone 2 g IV every 12. Last dose of antibiotics on 02/19. Repeat blood culture. Qualifiers: Chronicity: subacute Infective endocarditis organism: bacterial Qualified Code(s): I33.0 - Acute and subacute infective endocarditis (5) Severe hypothyroidism: Has been receiving IV levothyroxine. Most recently TSH of more than 77. Was discharged on Cytomel for 3 days followed by increase levothyroxine. Repeat thyroid panel. For now continue with oral levothyroxine at home dose. Will repeat dose as per the repeat thyroid panel results. (6) HTN (hypertension): Goal blood pressure less than 140/90 mmHg. Monitor blood pressures. (7) Atrial fibrillation: Currently rate controlled in sinus rhythm. Monitor on telemetry. Qualifiers: Atrial fibrillation type: longstanding persistent Qualified Code(s): I 48.11 - Longstanding persistent atrial fibrillation (8) History of aortic valve replacement with bioprosthetic valve: Plan Hypoglycemia: Episode of severe hypoglycemia with recurrence despite holding insulin suspected secondary to liver dysfunction. Discussed with nursing staff, reviewed Accu-Cheks. Blood glucose 49 today. Improved with dextrose. Hold insulin Lantus. Follow-up Accu-Cheks. Peripheral vascular disease: Recent Angioplasty. Continue with aspirin, statin. Appreciate A1c, lipid panel. Type 2 diabetes mellitus: Recent A1c of 9.6. Attestations 2 Medical Necessity Statement*: Unimproving congestive heart failure with multiorgan dysfunction and failure, with acute renal failure, liver dysfunction, hypoglycemia episodes, worsening acute cephalopathy, transitioning to comfort measures. Diagnoses Congestive heart failure I50.9 Altered mental status R41.82 Acute kidney injury superimposed on CKD N17.9; N18.9 Subacute bacterial endocarditis I33.0 Chronicity: subacute Infective endocarditis organism: bacterial Severe hypothyroidism E03.9 HTN (hypertension) I10 Longstanding persistent atrial fibrillation I48.11 Atrial fibrillation type: longstanding persistent History of aortic valve replacement with bioprosthetic valve Z95.3
[2024-02-11] MEDS: morphine 4 mg/mL SDV 1 mL IVP ×2 (15:50→20:39)
[2024-02-11] MEDS: LORazepam 2 mg/mL INJ 1 mL IVP ×2 (15:51→23:45)
--- NOTE | 2024-02-11 19:04 | PC.NURSE ---
Wasted 4mg Morphine and 2mg Ativan that nurse had pulled up in syringe. Patient ended up not needing medication. Medications were wasted with Ольга Lundberg RN in medication room and documented via pyxis.
[2024-02-11] MEDS: blistex lip oint 7 gm Tube 1 APPLIC TOPICAL (20:28)
[2024-02-12 08:00] VITALS: BP 143/61; PULSE 75; RESP 8; TEMP 36.4; O2SAT 90
--- NOTE | 2024-02-12 08:30 | PC.NURSE ---
Brother in law (Mukesh) stated that he has taken the pt's watch for safe keeping.
[2024-02-12] MEDS: morphine 4 mg/mL SDV 1 mL IVP (10:00)
[2024-02-12] MEDS: pantoprazole 40 mg SDV IVP (10:00)
[2024-02-12 11:26] VITALS: BP 99/85; PULSE 77; RESP 15; TEMP 36.6
[2024-02-12] MEDS: LORazepam 2 mg/mL INJ 1 mL IVP (12:08)
[2024-02-12 16:49] VITALS: BP 125/45; PULSE 71; RESP 6; TEMP 36.4; O2SAT 89
--- NOTE | 2024-02-12 18:30 | P.PN_ITS ---
Subjective 2 Subjective: He appears more comfortable. Has been raising his arms intermittently as per discussion with his [id number]. Family expressed concern that he may roll out of bed correction if leaving the hospital today. Vitals/I&O/Wt Last Vital Signs Temp 97.5 F L 02/12/24 16:49 Pulse 71 02/12/24 16:49 Resp 6 L 02/12/24 16:49 BP 125/45 02/12/24 16:49 Pulse Ox 89 L 02/12/24 16:49 O2 Del Method Room Air 02/12/24 16:49 O2 Flow Rate 3 02/11/24 08:12 02/12/24 02/12/24 02/12/24 06:59 14:59 22:59 Output Total 250 / 250 350 / 350 Balance -250 / -50 -350 / -350 Weight last 48 hrs Weight 113.398 kg Weight 112.491 kg Physical Exam 2 Const: COMMON NORMALS: negative for patient oriented x3 and negative for alert GENERAL APPEARANCE: cooperative ORIENTATION/CONSCIOUSNESS: not awake HENMT: COMMON NORMALS: oropharynx normal Neck/C-Spine: COMMON NORMALS: no JVD Resp: COMMON NORMALS: normal respiratory effort and clear to auscultation bilaterally AUSCULTATION: clear to auscultation bilaterally Cardio: COMMON NORMALS: no JVD, regular rhythm, S1 normal heart sound present, S2 normal heart sound present and No murmurs present (Cardio) RHYTHM: regular rhythm HEART SOUNDS: S1 normal heart sound present and S2 normal heart sound present GI: COMMON NORMALS: Normal to inspection, nondistended, normoactive bowel sounds present, Soft to palpation and non-tender PALPATION: Yes Soft to palpation Extremity: COMMON NORMALS: no joint enlargement NARRATIVE EXTREMITY EXAM: Prior right foot toe amputations. OTHER: Mild to moderate anasarca. Neuro: COMMON NORMALS: moves all extremities; negative for patient oriented x3 SENSORIUM/ORIENTATION: No alert Skin: COMMON NORMALS: no rashes or lesions noted GENERAL SKIN EXAM: no rashes or lesions noted Urinary Catheter Management: Peoples: Cath Placed During This Visit: yes Reason for Continuing Indwelling Catheter: Accurate Measurement of Urinary Output in Critically Ill Patients Urinary Catheter Date of Insertion: 02/06/24 Data 02/11/24 07:59 02/11/24 07:59 A&P Assessment and plan (1) Comfort measures only status: He appears more comfortable today. Reviewed vitals, discussed with telephonic nurse case manager. Discussed with family. They report he has been raising his arms intermittently. Family expressing concern that he may be at risk of falling out of bed at the correction as there is no possibility to raise the bed rails. Would like to observe patient here for today to further assess if he is not strong enough to try to get up/roll out of bed. I do not see this so far, we will monitor patient, otherwise tentative plan for to transition to comfort measures at the correction tomorrow. Discussed with family further what may be expected as he is getting closer to passing. Continue morphine as needed, Ativan as needed, atropine as needed. Zofran, Dulcolax as needed. (2) Congestive heart failure: (3) Altered mental status: (4) Acute kidney injury superimposed on CKD: Acute renal failure (5) Infective endocarditis: Reviewed repeat blood culture, remains negative. Was on IV ampicillin and ceftriaxone. Change dose of ampicillin as per creatinine clearance of 40. Changed to 2 mg every 8 hours along with ceftriaxone 2 g IV every 12. Last dose of antibiotics on 02/19. Qualifiers: Chronicity: subacute Infective endocarditis organism: bacterial Qualified Code(s): I33.0 - Acute and subacute infective endocarditis (6) Severe hypothyroidism: Has been receiving IV levothyroxine. Most recently TSH of more than 77. Was discharged on Cytomel for 3 days followed by increase levothyroxine. Repeat thyroid panel. For now continue with oral levothyroxine at home dose. Will repeat dose as per the repeat thyroid panel results. (7) HTN (hypertension): Goal blood pressure less than 140/90 mmHg. Monitor blood pressures. (8) Atrial fibrillation: Currently rate controlled in sinus rhythm. Monitor on telemetry. Qualifiers: Atrial fibrillation type: longstanding persistent Qualified Code(s): I 48.11 - Longstanding persistent atrial fibrillation (9) History of aortic valve replacement with bioprosthetic valve: Plan Hypoglycemia: Hold insulin Lantus. Peripheral vascular disease: Recent Angioplasty. Type 2 diabetes mellitus: Recent A1c of 9.6. Attestations 2 Medical Necessity Statement*: Continue comfort measures, arrangements for transition to comfort measures at correction. Diagnoses Comfort measures only status Z51.5 Congestive heart failure I50.9 Altered mental status R41.82 Acute kidney injury superimposed on CKD N17.9; N18.9 Subacute bacterial endocarditis I33.0 Chronicity: subacute Infective endocarditis organism: bacterial Severe hypothyroidism E03.9 HTN (hypertension) I10 Longstanding persistent atrial fibrillation I48.11 Atrial fibrillation type: longstanding persistent History of aortic valve replacement with bioprosthetic valve Z95.3
[2024-02-12 20:00] VITALS: BP 121/55; PULSE 70; RESP 5; TEMP 35.9
[2024-02-13 06:00] VITALS: BMI 33.9
[2024-02-13 07:18] VITALS: BP 127/42; PULSE 75; RESP 9; TEMP 36.1
--- NOTE | 2024-02-13 07:28 | PC.NURSE ---
Unable to get 02 sats. patient is on comfort care. nurse notified.
[2024-02-13] MEDS: pantoprazole 40 mg SDV IVP (09:09)
[2024-02-13] MEDS: atropine 1% op soln 2 mL Btl 3 DROP SUBLINGUAL (09:11)
--- NOTE | 2024-02-13 09:55 | P.DS_ITS ---
Discharge Providers Date of Admission: 02/09/24 15:44 Date of Discharge: February 13, 2024 Attending Provider at Admission: Carlton Simpson MD Attending Provider at Discharge: Alo De Los Santos Primary Care Provider: Rowdy Sheldon DO Diagnoses at Discharge Discharge Diagnosis (1) Comfort measures only status: Status: Acute (2) Congestive heart failure: Status: Acute (3) Altered mental status: Status: Acute (4) Acute kidney injury superimposed on CKD: Status: Acute (5) Infective endocarditis: Status: Acute Qualifiers: Chronicity: subacute Infective endocarditis organism: bacterial Qualified Code(s): I33.0 - Acute and subacute infective endocarditis Permanent problem details: suspected diagnosis (6) Severe hypothyroidism: Status: Acute (7) HTN (hypertension): Status: Acute (8) Atrial fibrillation: Status: Acute Qualifiers: Atrial fibrillation type: longstanding persistent Qualified Code(s): I48.11 - Longstanding persistent atrial fibrillation Permanent problem details: Paroxysmal (9) History of aortic valve replacement with bioprosthetic valve: Status: Acute Reason for Visit Reason for Visit: MICHELLE LOWER EXT SWELLING Brief History: Surendra Roland is a 73 year old male with past medical history of peripheral vascular disease, type 2 diabetes mellitus, CKD with baseline creatinine of 1.6- 2.1, bioprosthetic aortic valve, congestive systolic heart failure with EF of 45 to 50%, recent bacteremia with Enterococcus faecalis due to gangrene of the right foot and osteomyelitis post right foot TMA, recent angioplasty of the right foot currently on IV ampicillin and Rocephin to finish on 02/19 was sent into the ER today from the senior care with concerns for increasing swelling in his lower limb for last 1 week more so for last few days, confusion on and off for last 1 week as well. As the history from the nursing staff at the senior care he has not had any nausea vomiting, diarrhea or dizziness. He has not complained of any chest pain. On examination patient is laying comfortably in bed, awake and alert and able to have complete conversation. He is slow to respond but he is awake and alert x 3. He denies of having any chest pain complains of mild difficulty in breathing especially on taking a deep breath, complains of swelling in his legs. Denies any nausea, vomiting, diarrhea. States his appetite has been poor and he does n ot feel interested in food these days but is thirsty as of now. States he has been feeling weak TSH elevated to more than 55 with low free T3. Check cortisol level. If normal or elevated will start on IV levothyroxine 100 mcg daily. Will need to recheck thyroid panel in 2 to 3 days. Hospital Course Hospital Course He was started on treatment for decompensated congestive heart failure with anasarca, started on IV Lasix 80 mg twice daily, fluid restriction 1500 mL. Continued on antibiotics for infective endocarditis with ampicillin, ceftriaxone, repeat blood cultures were obtained and negative. With recent severe hypothyroidism, TSH was assessed and better but still elevated at 55, low free T3, cortisol not low, was started on IV levothyroxine 100 mcg. Respiratory viral panel was checked and was unremarkable. Urine culture was obtained and did not show any growth to suggest urinary tract infection. Atrial fibrillation remained controlled. As that blood pressures. He is on cardiovascular medications. Insulin for diabetes. He did not respond to treatment with diuretics with low urine output, kidney function progressively worsening despite diffuse anasarca. Limited follow-up echocardiogram was obtained which showed diffuse hypokinesia of left ventricle, ejection fraction 44%. Mildly dilated LV cavity, moderately increased left atrial size. Leaflets with echodensities on aortic valve, cannot rule out vegetation. He did not have any focal abnormalities to suggest CVA. Remained afebrile. Blood cultures from 02/08 without growth. Continued with antibiotic coverage. CT abdomen pelvis with increasing pleural effusions, ascites, anasarca. Significant worsening from prior. Noted cardiomegaly, as well as nodular appearance of the liver concerning for hepatic cirrhosis. Constipation. Despite diuretic challenge renal function with further worsening, also with progressive encephalopathy, likely ensuing uremia, additional discussion was held with patient's family with consideration of further options, started on Lasix drip, albumin infusions, nephrology was consulted for consideration of further steps including as discussed hemodialysis, however, without response to treatment and with his wishes incompatible with hemodialysis or further aggressive measures on further discussion and consideration family chose to transition to comfort measures alone in accordance with his goals of care. Arrangements are underway for him to continue end-of-life comfort care at [facility]. Physical Exam Narrative: Appears comfortable. Const: COMMON NORMALS: negative for alert ORIENTATION/CONSCIOUSNESS: Yes patient obtunded; not awake HENMT: COMMON NORMALS: oropharynx normal Resp: COMMON NORMALS: normal respiratory effort AUSCULTATION: rhonchi Cardio: COMMON NORMALS: regular rate RATE: regular rate GI: COMMON NORMALS: non-tender Extremity: COMMON NORMALS: no joint enlargement NARRATIVE EXTREMITY EXAM: Prior right foot toe amputations. OTHER: Moderate anasarca. Neuro: SENSORIUM/ORIENTATION: No alert Urinary Catheter Management: Peoples: Cath Placed During This Visit: yes Reason for Continuing Indwelling Catheter: Accurate Measurement of Urinary Output in Critically Ill Patients Urinary Catheter Date of Insertion: 02/06/24 Discharge Data Studies Completed and Pending Completed Studies During Hospitalization Category Date Time Status CT kidney stone 24031 Stat Cat Scan 02/09/24 11:03 Completed CXRP [XR chest 1V portable [id number]] Routine Exams 02/11/24 09:49 Completed XR chest 1V portable [id number] Stat Exams 02/09/24 08:10 Completed CV. echo limited [id number] Routine Ultrasound 02/11/24 09:48 Completed Pending at discharge Category Date Time Status Blood Culture Stat Lab 02/09/24 15:58 Results Radiology Impressions Abdomen/Pelvis CT 02/09/24 11:03 IMPRESSION: 1. Increasing pleural effusions, ascites and anasarca. The anasarca has significantly worsened over the interval since the prior study 2. Stable chronic pancreatic calcifications 3. Stable cardiomegaly 4. Persistent constipation, slightly improved at the level of the rectum 5. Subtle nodularity of the liver surface suggesting cirrhosis Chest X-Ray 02/11/24 09:49 IMPRESSION: 1. Vascular and interstitial prominence persists but with an improved inspiratory effort when compared to the prior exam. 2. Small right pleural effusion. Laboratory Results WBC 16.31 10^3/uL (3.29-11.43) H 02/11/24 07:59 RBC 3.59 10^6/uL (3.85-5.65) L 02/11/24 07:59 Hgb 10.40 g/dL (11.27-16.99) L 02/11/24 07:59 Hct 35.8 % (37-53) L 02/11/24 07:59 MCV 99.7 fl (82-101) 02/11/24 07:59 MCH 29.0 pg (27-33) 02/11/24 07:59 MCHC 29.1 g/dL (30-55) L 02/11/24 07:59 RDW 20.9 % (12.1-15.1) H 02/11/24 07:59 Plt Count 63 10^3/cmm (157-399) L D 02/11/24 07:59 MPV 11.6 fL (7.4-10.4) H 02/11/24 07:59 Neut % (Auto) 87.9 % 02/11/24 07:59 Lymph % (Auto) 2.7 % 02/11/24 07:59 Crisp % (Auto) 8.6 % 02/11/24 07:59 Eos % (Auto) 0.1 % 02/11/24 07:59 Baso % (Auto) 0.1 % 02/11/24 07:59 Neut # (Auto) 14.34 10^3/uL (1.8-7.7) H 02/11/24 07:59 Lymph # (Auto) 0.4 10^3/uL (0.8-4.8) L 02/11/24 07:59 Crisp # (Auto) 1.4 10^3/uL (0.2-0.9) H 02/11/24 07:59 Eos # (Auto) 0.0 10^3/uL (0.0-0.8) 02/11/24 07:59 Baso # (Auto) 0.0 10^3/uL (0.0-0.1) 02/11/24 07:59 Nucleated RBC % (auto) 0.2 % 02/11/24 07:59 Nucleated RBCs # 0.0 /100WBC 02/11/24 07:59 ESR 5 mm/hr (0-10) 02/09/24 08:36 Sodium 136 mmol/L (136-145) 02/11/24 07:59 Potassium 5.4 mmol/L (3.5-5.1) H 02/11/24 07:59 Chloride 100 mmol/L (98-107) 02/11/24 07:59 Carbon Dioxide 11 mmol/L (22-29) L 02/11/24 07:59 Anion Gap 30.4 (5-19) H 02/11/24 07:59 BUN 83 mg/dL (8-23) H* 02/11/24 07:59 Creatinine 3.4 mg/dL (0.7-1.2) H 02/11/24 07:59 GFR Calculation Not Reportable 02/11/24 07:59 Glucose 94 mg/dL (65-115) 02/11/24 07:59 POC Glucose 92 mg/dL (70-110) 02/11/24 12:19 Calculated Osmolality 307 mOsm/kg (285-295) H 02/11/24 07:59 Calcium 8.5 mg/dL (8.5-10.5) 02/11/24 07:59 Phosphorus 6.1 mg/dL (2.5-4.5) H 02/10/24 04:28 Magnesium 2.5 mg/dL (1.7-2.3) H 02/10/24 04:28 Total Bilirubin 1.2 mg/dL (0.15-1.2) 02/11/24 07:59 AST 521 U/L (0-40) H 02/11/24 07:59 ALT 278 U/L (0-41) H 02/11/24 07:59 Alkaline Phosphatase 246 U/L (40-130) H 02/11/24 07:59 Ammonia 28 umol/L (16-60) 02/10/24 10:00 Troponin T Baseline 194 ng/L (0-15) H* 02/11/24 10:34 Troponin T 120 Minute 193.3 ng/L (0-15) H 02/11/24 12:31 Delta Troponin T -0.7 ABS# (0-10) L 02/11/24 12:31 C-Reactive Protein 19.4 mg/L (0.0-4.9) H 02/09/24 08:36 NT-Pro-B Natriuret Pep 52976 pg/mL (0-125) H 02/09/24 08:36 Total Protein 6.5 g/dL (6.6-8.7) L 02/11/24 07:59 Albumin 3.4 g/dL (3.5-5.2) L 02/11/24 07:59 Globulin 3.1 g/dL (1.3-4.6) 02/11/24 07:59 Triglycerides 65 mg/dL (0-150) 02/10/24 04:28 Cholesterol 91 mg/dL (0-200) 02/10/24 04:28 LDL Cholesterol, Calc 43 mg/dL (50-129) L 02/10/24 04: HDL Cholesterol 35 mg/dL (60-100) L 02/10/24 04: LDL/HDL Ratio 1.23 RATIO (0.00-3.22) 02/10/24 04: Cholesterol/HDL Ratio 2.60 mg/dL (1.0-5.00) 02/10/24 04:28 Procalcitonin 0.15 ng/mL (0-0.5) 02/09/24 08:36 TSH 55.01 uIU/mL (0.27-4.20) H 02/09/24 08:36 TSH 55.70 uIU/mL (0.27-4.20) H 02/09/24 08:36 Free T4 0.54 ng/dL (0.82-1.77) L 02/09/24 08:36 Random Cortisol 25.24 ug/dL (2.47-19.5) H 02/09/24 08:36 Urine Color Yellow (Yellow) 02/09/24 10:15 Urine Appearance Sl hazy (CLEAR) A 02/09/24 10:15 Urine pH 5 (5-7) 02/09/24 10:15 Ur Specific [place] 1.020 (1.005-1.030) 02/09/24 10:15 Urine Protein 1+ (Negative) H 02/09/24 10:15 Urine Glucose (UA) Norm (Normal) 02/09/24 10:15 Urine Ketones 1+ (Negative) H 02/09/24 10:15 Urine Blood 3+ (Negative) H 02/09/24 10:15 Urine Nitrate Negative (Negative) 02/09/24 10:15 Urine Bilirubin Neg (Negative) 02/09/24 10:15 Urine Urobilinogen Norm mg/dL (Negative) 02/09/24 10:15 Ur Leukocyte Esterase 1+ (Negative) H 02/09/24 10:15 Urine RBC 25-40 /hpf (0-2) H 02/09/24 10:15 Urine WBC 5-10 /hpf (0-5) H 02/09/24 10:15 Ur Squamous Epith Cells 0-4 /hpf (0-5) H 02/09/24 10:15 Amorphous Sediment Not Reportable 02/09/24 10:15 Urine Bacteria 1+ /hpf (NONE) H 02/09/24 10:15 Urine Mucus Trace /hpf 02/09/24 10:15 Adenovirus (PCR) Not detected (NOT DETECT) 02/10/24 04:45 C. pneumoniae DNA (PCR) Not detected (NOT DETECT) 02/10/24 04:45 Coronavirus 229E (PCR) Not detected (NOT DETECT) 02/10/24 04:45 Hepatitis A IgM Ab Non-reactive (Nonreactive) 02/10/24 10:00 Hep Bs Antigen Non-reactive (Nonreactive) 02/10/24 10:00 Hep B Core IgM Ab Non-reactive (Nonreactive) 02/10/24 10:00 Hepatitis C Antibody Non-reactive (Nonreactive) 02/10/24 10:00 Human Metapneumovir PCR Not detected (NOT DETECT) 02/10/24 04:45 Influenza A (H1) PCR Not detected (NOT DETECT) 02/10/24 04:45 Influ A (H1/09) PCR Not detected (NOT DETECT) 02/10/24 04:45 Influenza A (H3) PCR Not detected (NOT DETECT) 02/10/24 04:45 Influenza Type A (PCR) Not detected (NOT DETECT) 02/10/24 04:45 Influenza Type B (PCR) Not detected (NOT DETECT) 02/10/24 04:45 M. pneumoniae (PCR) Not detected (NOT DETECT) 02/10/24 04:45 Parainfluenza 1 (PCR) Not detected (NOT DETECT) 02/10/24 04:45 Parainfluenza 2 (PCR) Not detected (NOT DETECT) 02/10/24 04:45 Parainfluenza 3 (PCR) Not detected (NOT DETECT) 02/10/24 04:45 Parainfluenza 4 (PCR) Not detected (NOT DETECT) 02/10/24 04:45 RSV Type A (PCR) Not detected (NOT DETECT) 02/10/24 04:45 RSV Type B (PCR) Not detected (NOT DETECT) 02/10/24 04:45 Entero/Rhino (PCR) Not detected (NOT DETECT) 02/10/24 04:45 SARS-CoV-2 (PCR) Not detected (NOT DETECT) 02/10/24 04:45 Vitals Last Vital Signs Temp 97.0 F L 02/13/24 07:18 Pulse 75 02/13/24 07:18 Resp 9 L 02/13/24 07:18 BP 127/42 02/13/24 07:18 Pulse Ox 89 L 02/12/24 16:49 O2 Del Method Room Air 02/12/24 20:00 O2 Flow Rate 3 02/11/24 08:12 Discharge Plan Discharge Patient Disposition: Xfer SNF Condition: Serious Prescriptions: New bisacodyl 10 mg Suppository 10 mg CA DAILY PRN (Reason: Fecal Impaction) Qty: 30 0RF atropine 1 % Drops 3 drp sublingual Q4H PRN (Reason: Excessive Secretions, Rattling) Qty: 5 0RF Isopto Tears 0.5 % Drops 2 drp eye-both Q2H PRN (Reason: Dry Eye(S)) Qty: 15 0RF Lorazepam Intensol 2 mg/mL concentrate 0.5 mg PO BID PRN (Reason: anxiety) Qty: 30 0RF morphine concentrate 10 mg/0.5 mL syringe 2 - 10 mg PO Q4H PRN (Reason: pain) Qty: 30 0RF Continued bisacodyl 10 mg Suppository 10 mg CA DAILY PRN (Reason: Constipation) Discontinued duloxetine [Cymbalta] 60 mg capsule,delayed release(DR/EC) 60 mg PO BEDTIME cholecalciferol (vitamin D3) 25 mcg (1,000 unit) capsule 25 mcg PO QAM sertraline 50 mg tablet 50 mg PO BEDTIME multivitamin Tablet 1 tab PO DAILY hydrocodone-acetaminophen 5-325 mg tablet 1 tab PO Q6H PRN (Reason: pain) Qty: 14 0RF ferrous sulfate [Iron (ferrous sulfate)] 325 mg (65 mg iron) Tablet 325 mg PO DAILY clopidogrel 75 mg Tablet 75 mg PO DAILY Qty: 90 0RF aspirin 81 mg Tablet,Delayed Release (Dr/Ec) 81 mg PO DAILY Qty: 90 2RF potassium chloride 20 mEq/15 mL Liquid 40 meq PO DAILY 30 Days Qty: 1200 0RF ceftriaxone 2 gram recon soln 2 g IV Q12H 35 Days Qty: 50 0RF Rx Instructions: Stop date 02/22/2024 ampicillin sodium 2 gram recon soln 2 g IV Q6H 35 Days Qty: 50 0RF Rx Instructions: Stop date 02/22/2024 Fleet Enema 19-7 gram/118 mL Enema 118 ml CA DAILY PRN (Reason: Constipation) insulin lispro [Humalog KwikPen Insulin] 100 unit/mL Insulin Pen See Rx Instructions .ROUTE .COMPLEX Rx Instructions: INJECT PER SLIDING SCALE 3 TIMES DAILY. BS 141-180= 0UNITS, 181-220= 2 UNITS, 221-260=4 UNITS, 261-300= 6 UNITS, 301-350= 8 UNITS, 351-400= 10 UNITS, 401-450= 12 UNITS. levothyroxine 75 mcg Tablet 150 mcg PO DAILY magnesium hydroxide [Milk of Magnesia] 400 mg/5 mL Suspension 30 ml PO DAILY PRN (Reason: Constipation) sodium chloride 0.9 % (flush) [Normal Saline Flush] Syringe See Rx Instructions .ROUTE .COMPLEX Rx Instructions: 10CC INTRAVENOUSLY EVERY DAY AND FLOATING DERRICK OPERATOR FOR PICC ABT TOTAL OF 12 FLUSHES A DAY BEFORE AND AFTER EACH MEDICATION. bumetanide 1 mg tablet 1 mg PO BID insulin glargine [Lantus Solostar U-100 Insulin] 100 unit/mL (3 mL) insulin pen 10 unit SUBCUT BEDTIME atorvastatin 20 mg tablet 20 mg PO DAILY cyanocobalamin (vitamin B-12) [Vitamin B-12] 1,000 mcg Tablet Extended Release 1,000 mcg PO DAILY tamsulosin [Flomax] 0.4 mg capsule 0.4 mg PO BEDTIME No Action (DME) FreeStyle Marisela 14 Day Sensor Kit See Rx Instructions .ROUTE .MEDSUPPLY Qty: 1 Rx Instructions: As directed (DME) Diabetic shoes with 3 pair of inserts See Rx Instructions .Route .MEDSUPPLY Qty: 1 0RF Rx Instructions: As directed by HOME Discharge Orders: Discharge Order (Routine); Ordered 02/13/24 Ordered By: Alo De Los Santos Referrals: Rowdy Sheldon, [Primary Care Provider] - Patient Instructions: [place] (Into the eye) (Isopto Carpine, [place]-HS, Vuity, Qlosi), Diphenoxylate/Atropine (By mouth) (Lomotil, Lomocot), Lorazepam (By injection) (Ativan), Morphine (By injection) (Astramorph/PF, Duramorph, Infumorph 200,..., Laxatives, Stimulant (Into the rectum) (Dulcolax, Biscolax, Gentle..., Heart Failure (DC), Comfort Measures (GEN), CHF Stoplight, Opioid Safety, Pain Management Activity Restrictions/Additional Instructions: Continue comfort measures. Discharge Attestations Time Spent in Discharge Care*: greater than 30 min Status at Discharge: Cognitive status at discharge: mildly impaired cognition , Behavioral status at discharge: cooperative , Quality Metrics Clinical Quality Measures [ No reported AMI, CVA or VTE this stay] Coding Level of Care Code 25376 Total time (in minutes) for Discharge: 55 Diagnoses Comfort measures only status Z51.5 Congestive heart failure I50.9 Altered mental status R41.82 Acute kidney injury superimposed on CKD N17.9; N18.9 Subacute bacterial endocarditis I33.0 Chronicity: subacute Infective endocarditis organism: bacterial Severe hypothyroidism E03.9 HTN (hypertension) I10 Longstanding persistent atrial fibrillation I48.11 Atrial fibrillation type: longstanding persistent History of aortic valve replacement with bioprosthetic valve Z95.3
--- NOTE | 2024-02-13 12:27 | PC.NURSE ---
called report to [facility] and gave report to Iris Bae LPN.
[2024-02-13] MEDS: morphine 4 mg/mL SDV 1 mL IVP ×2 (12:51→16:41)
[2024-02-13 13:46] VITALS: BP 115/51; PULSE 81; RESP 7; TEMP 35.8
--- NOTE | 2024-02-13 13:48 | PC.NURSE ---
unable to get 02 sat. patient on comfort care.
[2024-02-13] MEDS: LORazepam 2 mg/mL INJ 1 mL IVP (16:41)
--- NOTE | 2024-02-13 16:54 | PC.NURSE ---
Discharge Note Patient discharged to [[facility]] via [[facility] in stretcher] accompanied by [ambulance personnel]. Discharge instructions reviewed with patient and/or housing management representative. Mobile pharmacy medications and/or prescriptions provided. Belongings/home medications returned.
[2024-02-13 16:57] VITALS: BP 115/51; PULSE 81; RESP 7; TEMP 35.8
== END 2024-02-13 16:50 | disposition skilled nursing facility (03) | DRG 291 ==
LOC: ER 11:13 → CSU 16:17
PROVIDERS: Admitting Provider Student in an Organized Health Care Education/Training Program; Emergency Provider Family Medicine; PCP Electrodiagnostic Medicine; Visit Provider Internal Medicine
DX: I11.0 Hypertensive heart disease with heart failure (principal); I33.0 Acute and subacute infective endocarditis; I50.23 Acute on chronic systolic (congestive) heart failure; N17.9 Acute kidney failure, unspecified; I48.11 Longstanding persistent atrial fibrillation; G93.40 Encephalopathy, unspecified; E87.20 Acidosis, unspecified; E03.9 Hypothyroidism, unspecified; N18.9 Chronic kidney disease, unspecified; Z51.5 Encounter for palliative care; Z99.81 Dependence on supplemental oxygen; Z66 Do not resuscitate; K59.00 Constipation, unspecified; E87.5 Hyperkalemia; Z87.891 Personal history of nicotine dependence; Z95.4 Presence of other heart-valve replacement; E11.22 Type 2 diabetes mellitus with diabetic chronic kidney disease; E11.649 Type 2 diabetes mellitus with hypoglycemia without coma; Z79.4 Long term (current) use of insulin; I73.9 Peripheral vascular disease, unspecified; N40.0 Benign prostatic hyperplasia without lower urinary tract symptoms; Z79.02 Long term (current) use of antithrombotics/antiplatelets; Z79.82 Long term (current) use of aspirin
CPT/HCPCS: 36415; 36416; 51702; 71045; 74176; 80053; 80061; 80074; 81001; 82140; 82533; 82962; 83690; 83735; 83880; 84100; 84145; 84439; 84443; 84484; 85025; 85651; 86140; 87040; 87086; 87486; 87581; 87633; 93005; 93308; 94664; 96372; 96374; 96376; 99284; 99285; C9113; J0290; J0696; J1610; J1630; J1644; J1815; J1940; J2060; J2270; J3490; P9046